=== PATIENT | female | born 1960 | race Caucasian/White ===

== ENCOUNTER 2024-01-02 15:12 | Inpatient (IN) | payer BC, SELFPAY ==
[2024-01-02] VITALS (8 sets, daily range): BP systolic 167–186; BP diastolic 67–96; PULSE 74–80; RESP 18–28; TEMP 36.6–37.1; O2SAT 97–100; BMI 34.4
--- NOTE | ~2024-01-02 | XR_ITS ---
CHEST RADIOGRAPH CLINICAL HISTORY: post R thora . COMPARISON: Radiograph of the chest as well as CTA of the chest same day TECHNIQUE: Single portable view of the chest. FINDINGS The cardiomediastinal silhouette remains partially obscured. Decreased right-sided pleural effusion, when compared with earlier study. No pneumothorax is present. IMPRESSION: Decreased right-sided pleural effusion without right-sided pneumothorax. Reviewed, dictated and finalized at location A. F PSYCHOLOGY
--- NOTE | ~2024-01-02 | XR_ITS ---
Portable chest x-ray Comparison: 01/03/2024 Clinical History: Pleural effusion Findings: Small right pleural effusion present. Left lung clear. Cardiomediastinal silhouette is st able. Bones and soft tissues are unremarkable. Impression: Small right pleural effusion. Reviewed, dictated and finalized at [facility]. PILOT ENGINEER Impression: Small right pleural effusion.
--- NOTE | ~2024-01-02 | XR_ITS ---
CHEST RADIOGRAPH, PA AND LATERAL CLINICAL HISTORY: right effusion . COMPARISON: 01/04/2024 TECHNIQUE: PA and lateral views of the chest. FINDINGS The cardiomediastinal silhouette is unremarkable. Lobulated densities identified within the periphery of the right hemithorax, consistent with patient' s CT examination of 01/02/2024. No right-sided pneumothorax is present following right-sided thoracentesis. The left hemithorax remains clear. Visualized osseous structures and soft tissues are unremarkable. IMPRESSION: Pleural-based densities projecting over the periphery of the right lung. Would recommend repeat CT examination (today) after right-sided thoracentesis for more definitive aura luation of the right chest, and to determine optimal site for biopsy, if needed. Reviewed, dictated and finalized at location A. ER PROGRAM DIRECTOR IMPRESSION: Pleural-based densities projecting over the periphery of the right lung. Would recommend repeat CT examination (today) after right-sided thoracentesis f or more definitive evaluation of the right chest, and to determine optimal site for biopsy, if needed.
--- NOTE | ~2024-01-02 | CT_ITS ---
EXAMINATION: CTA chest PE protocol DATE: 01/02/2024 16:13 ROTOR BALANCER INDICATION: Shortness of breath TECHNIQUE: Computed tomographic angiography (CTA) of the chest was performed with 100 mL Omnipaque-35 0 intravenous contrast. The dose-length product was 902.53 mGy-cm. Maximum intensity projection 3D-re constructions of the aorta and other arteries were constructed by the technologist on a separate work station. COMPARISON: Multiple radiographs of the chest, performed on the same day FINDINGS: No filling defects within the main or proximal pulmonary arteries. Examination is somewhat limited secondary to significant motion artifact from rapid respirations. A large right-sided pleural effusion is identified, with adjacent compressive atelectasis. The attenuation value of this fluid ranges from 10 - 16HU. The remainder of the right hemithorax as well as the entirety of the left hemithorax are clear. Soft tissue attenuation focus identified posterior to the right fourth rib at the level of the costoc hondral junction is identified for which an underlying mass is suspected. This abnormality measures 1 7 x 24 mm (anterior to posterior and medial to lateral dimension) and is best identified on axial sarmad ge 121. An additional focus of soft tissue attenuation is identified along the undersurface of the right pleu ra, at the level of the right scapula measuring 17 x 20 mm. Multiple additional abnormal attenuation foci identified within the periphery along the undersurface of the pleura within the right hemithorax are present. No acute fractures are noted. No significant degenerative disease is present. No lytic or blastic lesions are identified within the visualized osseous structures. Within the superior anterior soft tissues is a catheter extending into the right pectoralis muscle. Bulky calcification within the soft tissues of the left breast. IMPRESSION: Large right-sided pleural effusion with probable studding of the undersurface of the right pleura, as detailed above Reviewed, dictated and finalized at location A. R BALANCER IMPRESSION: Large right-sided pleural effusion with probable studding of the undersurface o f the right pleura, as detailed above
--- NOTE | ~2024-01-02 | US_ITS ---
EXAMINATION: US thoracentesis DATE: 01/04/2024 11:56 INDICATION: pleural effusion TECHNIQUE: The procedure and its risks, benefits, and alternatives were discussed with the patient. Potential risks discussed included bleeding, infection, and pneumothorax. The patient understood the risks and agreed to proceed. A timeout was then performed as per protocol. The skin was prepped and draped in sterile fashion. 1% lidocaine was used for local anesthesia. Under ultrasound guidance, a 5 Fr catheter with trocar was advanced into the right pleural effusion, and the trocar needle removed. The catheter was then attached to vacuum suction. The pleural effusion was evacuated in its entirety. The catheter was then removed, and a sterile dressing was applied. There were no immediate complications. FINDINGS: Ultrasound images demonstrate a dramatic decrease in the right-sided pleural effusion and the cathete r within the fluid. IMPRESSION: 1. Successful ultrasound-guided thoracentesis yielding 1550 mL of thin yellow fluid. No immediate complications. Reviewed, dictated and finalized at location A. CAL LEAD
--- NOTE | ~2024-01-02 | US_ITS ---
EXAMINATION: US thoracentesis at the bedside in ED DATE: 01/02/2024 17:30 INDICATION: Large right-sided pleural effusion with shortness of breath TECHNIQUE: The procedure and its risks, benefits, and alternatives were discussed with the patient. Potential risks discussed included bleeding, infection, and pneumothorax. The patient understood the risks and agreed to proceed. A timeout was then performed as per protocol. The skin was prepped and draped in sterile fashion. 1% lidocaine was used for local anesthesia. Under ultrasound guidance, a 5 Fr catheter with trocar was advanced into the right pleural effusion, and the trocar needle removed. Multiple specimens were then obtained. The catheter was then attached to vacuum suction. Evacuation was continued of the pleural fluid until the patient became symptomatic (chest pain and co ughing). The catheter was then removed, and a sterile dressing was applied. There were no immediate complications. Postprocedure chest x-ray was without pneumothorax and demonstrated a significant decrease in the rig ht-sided pleural effusion. FINDINGS: Ultrasound images demonstrate a large pleural effusion and the catheter within the fluid. Additional image demonstrated studding of the undersurface of the right pleura. IMPRESSION: 1. Technically successful ultrasound-guided thoracentesis yielding 1400 mL of joaquín fluid, performed emergently at the bedside in the emergency Department. Reviewed, dictated and finalized at location A. P THERAPIST IMPRESSION: 1. Technically successful ultrasound-guided thoracentesis yielding 1400 mL of a mber fluid, performed emergently at the bedside in the emergency Department.
--- NOTE | ~2024-01-02 | XR_ITS ---
EXAMINATION: XR chest 1V portable DATE: 01/02/2024 15:45 INDICATION: Shortness of breath. TECHNIQUE: A single frontal view of the chest was obtained. COMPARISON: Chest 2 views at 3:18 PM FINDINGS: There is a large right pleural effusion. There are airspace opacities at right lung base. N o pneumothorax. The heart size is normal. IMPRESSION: 1. Large right pleural effusion. 2. Airspace opacities at right lung base, consistent with atelectasis versus pneumonia. Reviewed, dictated and finalized at location A. STOCKER IMPRESSION: 1. Large right pleural effusion. 2. Airspace opacities at right lung base, consistent with atelectasis versus pn eumonia.
--- NOTE | ~2024-01-02 | XR_ITS ---
Portable chest x-ray Comparison: 01/02/2024 Clinical History: Pleural effusion Findings: Suspected small to moderate right pleural effusion with additional elevation right hemidia phragm. Left lung clear. Cardiomediastinal silhouette is stable. Bones and soft tissues are unremark able. Impression: Suspected small to moderate right pleural effusion. Reviewed, dictated and finalized at location . OR ESTABLISHMENT MANAGER Impression: Suspected small to moderate right pleural effusion.
--- NOTE | 2024-01-02 15:50 | ECG_ITS ---
Test Date: 2024-01-02 16:16:52 Measurements Intervals [place] Rate: 78 P: -7 HI: 169 QRS: -10 QRSD: 88 T: 3 QT: 389 QTc: 443 Interpretive Statements SINUS RHYTHM CONSIDER INFERIOR INFARCT, AGE INDETERMINATE ANTEROSEPTAL INFARCT, AGE INDETERMINATE BASELINE ARTIFACT- I, II, III, AVR, AVL, AVF, V3-V6 ABNORMAL ECG No previous ECG available for comparison Electronically Signed On 01-02-2024 18:40:35 MEETING COORDINATOR by Joe Gillespie D.O.
--- NOTE | 2024-01-02 16:30 | PC.NURSE ---
Pt arrived with needle in R. chest. Needle removed by Md Gong. No active bleeding. Pt. stable at this time.
--- NOTE | 2024-01-02 16:30 | PC.NURSE ---
Pt. arrived with needle in R. chest from EMS. Needle removed by MD Gong.
[2024-01-02 16:34] LABS: Basophils Percent Auto 0.3 % (0.2-1.2); Eosinophils Percent Auto 0.1 % (0-4.4); Hematocrit 35.8 % (37.0-47.0); Hemoglobin 12.6 g/dL (12.0-15.0); Immature Granulocyte Absolute 0.04 K/mm3 (0.00-0.031); Immature Granulocyte Percent A 0.4 % (0-0.5); Lymphocytes Absolute Auto 0.62 K/mm3 (0.9-3.2); Lymphocytes Percent Auto 5.9 % (18.3-44.2); Mean Corpuscular HGB Conc 35.2 g/dl (32-36); Mean Corpuscular Hemoglobin 30.1 pg (26-34); Mean Corpuscular Volume 85.6 fl (80-100); Mean Platelet Volume 10.1 fl (7.4-10.4); Monocytes Absolute Auto 0.4 K/mm3 (0.1-0.6); Neutrophils Absolute Auto 9.4 K/mm3 (1.3-6.7); Neutrophils Percent Auto 89.3 % (45.5-73.1); Platelet Count Result 338 k/mm3 (150-375); Red Blood Count 4.18 M/mm3 (4.2-5.4); Red Cell Distribution Width 11.9 % (11.5-14.5); White Blood Count 10.5 K/mm3 (4.5-10.0)
--- NOTE | 2024-01-02 16:45 | PC.NURSE ---
Radiology at bedside draining R. pleural effusion. Staff reports no needs at this time.
[2024-01-02 16:46] LABS: INR 1.1; Prothrombin Time 14.3 Seconds (11.1-14.7)
[2024-01-02 16:47] LABS: Partial Thromboplastin Time 26.2 Seconds (22.3-36.8)
[2024-01-02 16:50] LABS: Alanine Aminotransferase 20 U/L (6-35); Albumin Level 3.8 g/dL (3.5-5.1); Alkaline Phosphatase 165 U/L (38-126); Anion Gap 7 mmol/L (4-12); Aspartate Amino Transferase 28 U/L (14-36); Bilirubin,Total 0.7 mg/dL (0.2-1.3); Blood Urea Nitrogen 8 mg/dL (7-17); Calcium 8.4 mg/dL (8.4-10.2); Carbon Dioxide 22 mmol/L (22-30); Chloride 94 mmol/L (98-107); Estimated CRCL calculation 81 ml/min; Estimated Glomerular Filt Rate > 60; Glucose 196 mg/dL (65-110); Lipase 222 U/L (23-300); Magnesium 1.8 mg/dL (1.6-2.3); Phosphorus 3.1 mg/dL (2.5-4.5); Potassium 3.7 mmol/L (3.4-5.0); Sodium 123 mmol/L (137-145)
[2024-01-02 16:51] LABS: Lactic Acid Reflex 2.3 mmol/L (0.7-2.0)
--- NOTE | 2024-01-02 17:00 | PC.NURSE ---
Procedure complete. Per Dimas, mri special procedures technologist, pt. should remain NPO until 1900. No additional concerns. Consent for procedure filed with ultrasound.
[2024-01-02 17:02] LABS: NT Pro B Type Natriuretic Pept 341 pg/mL (19.9-100); Troponin I < 0.012 ng/mL (0.000-0.034)
[2024-01-02 17:13] LABS: pH Pleural Fluid 7.446 (7.210-7.500)
--- NOTE | 2024-01-02 17:15 | PM.OP ---
Procedure Note - Brief Procedure Note - Brief Date of procedure: 01/02/24 sob Procedure performed: US guided R thoracentesis performed at the bedside in ED Surgeon: Amee Hubbard MD Anesthesia: local Description of procedure: sterile technique US guidance R thoracentesis ~ 1700cc thin joaquín fluid Estimated blood loss (mL): 0.1 Pathology: Yes Complications: No immediate complications Condition: Other (guarded, unchanged.) Disposition: Other (ER room 3)
--- NOTE | 2024-01-02 17:30 | ED.GENADULT ---
HPI - General Adult General Chief complaint: Shortness of Breath/Dyspnea Stated complaint: sob Time Seen by Provider: 01/02/24 15:36 History of Present Illness HPI narrative: this is a 63-year-old female presenting ED with chief complaint of shortness of breath. One week ago the patient felt like she developed a viral illness. She had an upset stomach, and general malaise with increasing shortness of breath. No fevers chills chest pain abdominal pain nausea vomiting or diarrhea. She went to an urgent care earlier today and was found having large right-sided pleural effusion. She was then sent hospital via ambulance. EMS did not hear lung sounds on the right side and performed a needle compression and the right 2nd intercostal space. Patient denies any other complaints this time. Related Data Allergies Allergy/AdvReac Type Severity Reaction Status Date / Time No Known Allergies Allergy Verified 01/02/24 15:28 Exam Narrative: APPEARANCE: patient in respiratory distress Head: atraumatic. EYES: EOMI, NOSE: Atraumatic NECK: Trachea midline RESPIRATORY: tachypneic, no lung sounds on the right, clear on the left CARDIOVASCULAR: RRR, No jordon peripheral edema ABDOMINAL: Non-distended MUSCULOSKELETAl: No obvious deformities NEURO: Alert. Moving 4/4 extremities SKIN:: Warm, dry. Normal color PSYCHIATRIC: Normal affect Course Vital Signs Vital signs: Vital Signs Temperature 97.9 F 01/02/24 15:23 Pulse Rate 80 01/02/24 15:23 Respiratory Rate 28 H 01/02/24 15:23 Blood Pressure 186/96 H 01/02/24 15:23 Pulse Oximetry 97 01/02/24 15:23 Oxygen Delivery Nasal Cannula 01/02/24 15:23 Oxygen Flow Rate 4 01/02/24 15:23 Temperature 97.9 F 01/02/24 15:23 Pulse Rate 80 01/02/24 15:23 Respiratory Rate 28 H 01/02/24 15:23 Blood Pressure 186/96 H 01/02/24 15:23 Pulse Oximetry 97 01/02/24 15:29 Oxygen Delivery Nasal Cannula 01/02/24 15:29 Oxygen Flow Rate 4 01/02/24 15:29 Medical Decision Making MDM Narrative Medical decision making narrative: -Course: 63-year-old female presenting to ED with shortness of breath. Patient found have a large right-sided pleural effusion. Needle can not decompression attempted by EMS. Patient taken to CT scanner evaluate for pleural effusion or pneumothorax. Needle decompression did not enter the thoracic cavity. CT showed a large pleural effusion with pleural masses. Diagnostic and therapeutic thoracentesis performed by Radiology with improvement in condition. thoracentesis studies are still pending. The rest the patient's workup significant for hyponatremia and hypochloremia. Patient given 1 L normal saline. Patient will be admitted the hospital for further workup her pleural effusion and pleural masses. -DDX includes but is not limited to: Neoplasm CHF, PE, viral illness -Co-morbidities complicating care: hypothyroid, hypertension -Independent interpretation of studies: labs imaging reviewed -Discussion of Management/Consultants: Kaykay -Interventions:1 L ns -Shared decision making / Disposition: admitted Vital Signs Vital Signs: Vital Signs Temperature 97.9 F 01/02/24 15:23 Pulse Rate 80 01/02/24 15:23 Respiratory Rate 28 H 01/02/24 15:23 Blood Pressure 186/96 H 01/02/24 15:23 Pulse Oximetry 97 01/02/24 15:23 Oxygen Delivery Nasal Cannula 01/02/24 15:23 Oxygen Flow Rate 4 01/02/24 15:23 Temperature 97.9 F 01/02/24 15:23 Pulse Rate 80 01/02/24 15:23 Respiratory Rate 28 H 01/02/24 15:23 Blood Pressure 186/96 H 01/02/24 15:23 Pulse Oximetry 97 01/02/24 15:29 Oxygen Delivery Nasal Cannula 01/02/24 15:29 Oxygen Flow Rate 4 01/02/24 15:29 Lab Data 01/02/24 16:28 01/02/24 16:28 Labs: Lab Results 01/02/24 01/02/24 01/02/24 Range/Units 16:28 16:28 16:46 WBC 10.5 H (4.5-10.0) K/mm3 RBC 4.18 L (4.2-5.4) M/mm3 Hgb 12.6 (12.0-15.0) g/dL Hct 35.8 L (37.0-47.0) % MCV 85.6 (80-100) fl MCH 30.1 (26-34) pg MCHC 35.2 (32-36) g/dl RDW 11.9 (11.5-14.5) % Plt Count 338 (150-375) k/mm3 MPV 10.1 (7.4-10.4) fl Immature Gran % (Auto) 0.4 (0-0.5) % Neut % (Auto) 89.3 H (45.5-73.1) % Lymph % (Auto) 5.9 L (18.3-44.2) % [place] % (Auto) 4.0 (2.6-8.5) % Eos % (Auto) 0.1 (0-4.4) % Baso % (Auto) 0.3 (0.2-1.2) % Lymph # (Auto) 0.62 L (0.9-3.2) K/mm3 [place] # (Auto) 0.4 (0.1-0.6) K/mm3 Eos # (Auto) 0.0 (0-0.3) K/mm3 Baso # (Auto) 0.0 (0.0-0.1) K/mm3 Abs Immat Gran (auto) 0.04 H (0.00-0.031) K/mm3 Absolute Neuts (auto) 9.4 H (1.3-6.7) K/mm3 Absolute Nucleated RBC 0.000 (0.0-0.012) K/mm3 Nucleated RBC % 0.0 (0.0-0.2) % PT 14.3 (11.1-14.7) Seconds INR 1.1 APTT 26.2 (22.3-36.8) Seconds Sodium 123 L (137-145) mmol/L Potassium 3.7 (3.4-5.0) mmol/L Chloride 94 L (98-107) mmol/L Carbon Dioxide 22 (22-30) mmol/L Anion Gap 7 (4-12) mmol/L BUN 8 (7-17) mg/dL Creatinine 0.70 (0.7-1.0) mg/dL Estim Creat Clear Calc 81 ml/min Estimated GFR > 60 (59 - ) Glucose 196 H (65-110) mg/dL Lactic Acid 2.3 H (0.7-2.0) mmol/L Calcium 8.4 (8.4-10.2) mg/dL Phosphorus 3.1 (2.5-4.5) mg/dL Magnesium 1.8 (1.6-2.3) mg/dL Total Bilirubin 0.7 (0.2-1.3) mg/dL AST 28 (14-36) U/L ALT 20 (6-35) U/L Alkaline Phosphatase 165 H (38-126) U/L Troponin I Pending < 0.012 NT-Pro-B Natriuret Pep 341 H (19.9-100) pg/mL Total Protein 7.0 (6.3-8.2) g/dL Albumin 3.8 (3.5-5.1) g/dL Lipase 222 (23-300) U/L TSH (Reflex) Pending Pleural Fluid Source Pending Pleural Color Pending Pleural Appearance Pending Pleural pH 7.446 (7.210-7.500) Pleural RBC Pending Pleural Nuc Cells Pending Pleural Total Protein Pending Pleural Albumin Pending Pleural LDH Pending Pleural Glucose Pending Pleural Amylase Pending Pleural Cholesterol Pending Pleural Triglycerides Pending Discharge Plan Discharge Clinical Impression: Pleural effusion, Pleural mass, Hyponatremia Patient Disposition: Still a Patient Condition: Serious Follow-up/Referrals: UNKNOWN,DOCTOR [Primary Care Provider] -
[2024-01-02 17:32] LABS: Alveolar/Arterial O2 Gradient 146.4 mmHg; Base Excess ABG -3.3 mEq/l (+/-2.0); Fractional Inspired Oxygen 36 %; HCO3 ABG 18.7 mEq/l (22.0-26.0); Oxygen Content ABG 18.2 %vol (16.0-22.0); Oxygen Saturation ABG 96.7 % (95.0-100.0); Oxyhemoglobin 95.9 % THb (90.0-100.0); PO2 ABG 80.1 mmHg (80.0-100.0); PO2 FiO2 Ratio Arterial Blood 2.22 %; Total Hemoglobin 13.5 g/dL (12.0-18.0); pH ABG 7.475 (7.350-7.450)
[2024-01-02 17:33] LABS: Device NASAL CANNULA; Modified Allen's Test Pass; Site Drawn RIGHT RADIAL
[2024-01-02 17:56] LABS: Appearance Pleural Fluid Hazy (Clear); Color Pleural Fluid Yellow (Colorless); Pleural fluid source Pleural fluid
[2024-01-02 17:57] LABS: Nucleated Cell Pleural Fluid 3881 /uL (0-1000); RBC Pleural Fluid 2000 /uL (0-10000)
[2024-01-02 18:22] LABS: Lymphocytes Pleural Fluid 59 %; Neutrophils Pleural Fluid 15 % (0-25)
[2024-01-02 18:23] LABS: Macrophages Pleural Fluid 17 %; Mesothelial Cells Pleural Flui 3 %; Monocytes Pleural Fluid 6 %
--- NOTE | 2024-01-02 18:49 | ADMGEN ---
This patient, Kimberly Isabel, was admitted to [facility] Surg Room 312-01. Patient/family oriented to hospital policies and general routines including ID bracelet, bed and alarms, visiting hours, pain management, procedures, bathroom and other care routines, personal items, smoking policy, room service/diet, and visiting hours. Information on how to activate the Rapid Response Team has been discussed. Patient/Family are encouraged to report perceived risks to care and to ask questions if they do not understand what they are told or what they should do.
[2024-01-02 19:23] LABS: Albumin Level 4.3 g/dL (3.5-5.1); Amylase 75 U/L (30-110); Bilirubin,Total 0.7 mg/dL (0.2-1.3); Cholesterol 207 mg/dL (0-200); Glucose 118 mg/dL (65-110); Lactate Dehydrogenase 198 U/L (120-246); Triglycerides 143 mg/dL (<150)
[2024-01-02 19:32] LABS: Reflex Lactic Acid Yes or No Add Lactic
[2024-01-02 20:25] LABS: Lactic Acid 0.9 mmol/L (0.7-2.0)
--- NOTE | 2024-01-02 23:16 | PM.IMHP ---
H&P: HPI History of Present Illness Date/Time: 01/02/24 23:16 Chief Complaint: shortness of breath/dyspnea Narrative: This is a 63-year-old female with a significant past medical history of hyperlipidemia, arthritis, Cholangitis, type 2 diabetes mellitus, hypothyroidism secondary to hyperthyroidism status post radioactive iodine treatment, former smoker who presented to the hospital with increased shortness of breath dyspnea that has progressively gotten worse over the past 1-1/2 weeks. Patient states that she started becoming short of breath 9 days ago and thought that she had a viral illness at that time. She did have a nonproductive dry hacky cough as well. she states that she did not seek any treatment for this until today when she presented to the hospital. she denies any recent Sick contacts. She also denies any fever, chills, nausea, vomiting, diarrhea, abdominal pain, chest pain, shortness a breath currently. Workup in the hospital included a chest x-ray which showed a large right pleural effusion, airspace opacities at right lung base consistent with atelectasis versus pneumonia. Chest CTA showed large right-sided pleural effusion with probable studding of the under surface of the right pleura, soft tissue attenuation focus identified posteriorly at the level of the right 4th rib of the Coastal chondral junction for which an underlying mass is suspected, this abnormality measures 17 x 24 mm, an additional focus of soft tissue attenuation was identified along the undersurface of the right pleura at the level of the right scapula measuring 17 x 20 mm, multiple additional abnormal attenuation foci identified within periphery along the undersurface of the pleura within the right hemithorax were present. Patient was taken for and ultrasound-guided thoracentesis from the ED yielding 1400 mL of joaquín fluid which was sent off for labs and cytology including culture. The pleural fluid showed 3881 pleural nucleated cells. Blood and pleural fluid cultures are pending. initial labs showed a white blood cell count 10.5, RBC 4.18, sodium 123, chloride 94, lactic acid 2.3> 0.9, alkaline phosphate 165, troponin was negative, proBNP 341, cholesterol 207, TSH 1.910. EKG was obtained and showed sinus rhythm with a rate of 78, QTC 443. She is being admitted in this setting for further workup Review of Systems Review of Systems: All systems reviewed & are unremarkable except as noted in HPI and below Constitutional: Constitutional: Reports as per HPI and Reports no additional constitutional complaints Eyes: Eyes: Reports as per HPI and Reports no additional eye complaints ENT: Reports system reviewed and no additional complaints, except as documented and Reports as per HPI Cardiovascular: Cardiovascular: Reports as per HPI and Reports no additional cardiovascular complaints Respiratory: Respiratory: Reports as per HPI and Reports no additional respiratory complaints Gastrointestinal: Gastrointestinal: Reports as per HPI and Reports no additional gastrointestinal complaints Genitourinary: Genitourinary: Reports no additional female genitourinary complaints and Reports as per HPI Musculoskeletal: Musculoskeletal: Reports no additional musculoskeletal complaints and Reports as per HPI Integumentary/Breasts: Skin/Breast: Reports system reviewed and no additional complaints, except as docu and Reports as per HPI Neurologic: Reports system reviewed and no additional complaints, except as documented and Reports as per HPI Psychiatric: Psychiatric: Reports no additional psychiatric complaints and Reports as per HPI [facility] Past Medical History Medical History (Updated 01/02/24 @ 23:33 by Kaykay Cardozo APRN) Arthritis Cholangitis Former smoker H/O radioactive iodine thyroid ablation Hyperlipidemia Hyperthyroidism Hypothyroidism (acquired) Surgical History Surgical History (Updated 01/02/24 @ 23:33 by Kaykay Cardozo APRN) H/O breast biopsy History of History of liver biopsy Family History Family History (Updated 01/02/24 @ 19:00 by Rose Seaman RN) Mother Colon cancer Social History Social History (Updated 01/02/24 @ 23:35 by Kaykay Cardozo APRN) Smoking status: Former smoker Tobacco type: cigarettes Alcohol intake: never Substance use: never Substance use type: does not use Do You Feel Safe in your Home?: Yes Lack of Transportation: No Lack of Food: Never True Current Housing: I Have Housing Concerned About Future Housing: No Difficulty Paying Gas/Electric Bills: No Difficulty Paying for Meds: No Currently Unemployed: No Education: Trade/Vocational Certificate Difficulty w/ Childcare or Family Care: No Spiritual care concerns: No Meds Home Medications and Allergies Home Medications Medication Instructions Recorded Confirmed Type cetirizine 10 mg tablet (Zyrtec) 10 mg PO DAILY 01/02/24 01/02/24 History levothyroxine 175 mcg tablet 175 mcg PO DAILY 01/02/24 01/02/24 History (Synthroid) rosuvastatin 5 mg tablet 5 mg PO DAILY 01/02/24 01/02/24 History tirzepatide 10 mg/0.5 mL 10 mg subcut 01/02/24 History subcutaneous pen injector (Radha) ursodiol 500 mg tablet 1,500 mg PO DAILY 01/02/24 01/02/24 History Allergies Allergy/AdvReac Type Severity Reaction Status Date / Time No Known Allergies Allergy Verified 01/02/24 15:28 Vital Signs Vital Signs - 24 hr 01/02/24 15:23 01/02/24 15:29 01/02/24 17:34 Temperature 97.9 F Pulse Rate 80 74 Respiratory Rate 28 H 20 Blood Pressure 186/96 H Pulse Oximetry 97 97 100 Oxygen Delivery Nasal Cannula Nasal Cannula Oxygen Flow Rate 4 4 01/02/24 18:19 01/02/24 18:20 01/02/24 19:00 Temperature 98 F Pulse Rate 75 80 Respiratory Rate 21 H 18 Blood Pressure 167/76 H 184/68 H Pulse Oximetry 98 100 98 Oxygen Delivery Nasal Cannula Oxygen Flow Rate 3 01/02/24 20:00 01/02/24 20:00 01/02/24 21:54 Temperature 98.8 F 98.8 F Pulse Rate 75 75 Respiratory Rate 18 18 Blood Pressure 175/67 H 175/67 H Pulse Oximetry 98 98 98 Oxygen Delivery Nasal Cannula Oxygen Flow Rate 2 Exam Narrative: General: In no acute distress, well nourished Head: atraumatic, no encephalopathy Eyes: PERRLA, sclera clear ENT: moist mucous membranes, nasal passages clear Neck: supple, no JVD, no adenopathy, trachea midline Cardiac: Normal S1 and S2. No murmur, gallops or friction rubs, peripheral pulses intact. Respiratory: crackles noted on the right lung versus the left, no adventitious lung sounds, currently on 2 L nasal cannula, no acute respiratory distress seen, no use of accessory muscles. Gastrointestinal: soft, non-distended, non-tender, normoactive bowel sounds. : voiding without difficulty. Extremities: moves all extremities well, no edema, good ROM, strength 5/5 Skin: clean, dry, intact. No wounds or lesions. Neuro: Alert and oriented x4, cranial nerves intact, no neuro deficits. Psych: normal mood, normal affect, interactive H&P: Results Labs Labs: Short CBC 01/02/24 Range/Units 16:28 WBC 10.5 H (4.5-10.0) K/mm3 Hgb 12.6 (12.0-15.0) g/dL Hct 35.8 L (37.0-47.0) % Plt Count 338 (150-375) k/mm3 BMP 01/02/24 01/02/24 16:28 19:03 Sodium 123 L Potassium 3.7 Chloride 94 L Carbon Dioxide 22 BUN 8 Creatinine 0.70 Glucose 196 H 118 H Calcium 8.4 Cardiac Enzymes 01/02/24 Range/Units 16:28 Troponin I < 0.012 (0.000-0.034) ng/mL Liver Function 01/02/24 01/02/24 Range/Units 16:28 19:03 Total Bilirubin 0.7 0.7 (0.2-1.3) mg/dL AST 28 (14-36) U/L ALT 20 (6-35) U/L Alkaline Phosphatase 165 H (38-126) U/L Albumin 3.8 4.3 (3.5-5.1) g/dL Imaging Chest x-ray: Radiologist's impression: EXAMINATION: XR chest 1V portable DATE: 01/02/2024 15:45 INDICATION: Shortness of breath. TECHNIQUE: A single frontal view of the chest was obtained. COMPARISON: Chest 2 views at 3:18 PM FINDINGS: There is a large right pleural effusion. There are airspace opacities at right lung base. No pneumothorax. The heart size is normal. IMPRESSION: 1. Large right pleural effusion. 2. Airspace opacities at right lung base, consistent with atelectasis versus pneumonia. Reviewed, dictated and finalized at location A. NG MACHINE SET UP OPERATOR Chest CTA: Radiologist's impression: EXAMINATION: CTA chest PE protocol DATE: 01/02/2024 16:13 HONING MACHINE SET UP OPERATOR INDICATION: Shortness of breath TECHNIQUE: Computed tomographic angiography (CTA) of the chest was performed with 100 mL Omnipaque-350 intravenous contrast. The dose-length product was 902.53 mGy-cm. Maximum intensity projection 3D-reconstructions of the aorta and other arteries were constructed by the technologist on a separate workstation. COMPARISON: Multiple radiographs of the chest, performed on the same day FINDINGS: No filling defects within the main or proximal pulmonary arteries. Examination is somewhat limited secondary to significant motion artifact from rapid respirations. A large right-sided pleural effusion is identified, with adjacent compressive atelectasis. The attenuation value of this fluid ranges from 10 - 16HU. The remainder of the right hemithorax as well as the entirety of the left hemithorax are clear. Soft tissue attenuation focus identified posterior to the right fourth rib at the level of the costochondral junction is identified for which an underlying mass is suspected. This abnormality measures 17 x 24 mm (anterior to posterior and medial to lateral dimension) and is best identified on axial image 121. An additional focus of soft tissue attenuation is identified along the undersurface of the right pleura, at the level of the right scapula measuring 17 x 20 mm. Multiple additional abnormal attenuation foci identified within the periphery along the undersurface of the pleura within the right hemithorax are present. No acute fractures are noted. No significant degenerative disease is present. No lytic or blastic lesions are identified within the visualized osseous structures. Within the superior anterior soft tissues is a catheter extending into the right pectoralis muscle. Bulky calcification within the soft tissues of the left breast. IMPRESSION: Large right-sided pleural effusion with probable studding of the undersurface of the right pleura, as detailed above Reviewed, dictated and finalized at location A. NG MACHINE SET UP OPERATOR thoracentesis ultrasound: Radiologist's impression: EXAMINATION: US thoracentesis at the bedside in ED DATE: 01/02/2024 17:30 INDICATION: Large right-sided pleural effusion with shortness of breath TECHNIQUE: The procedure and its risks, benefits, and alternatives were discussed with the patient. Potential risks discussed included bleeding, infection, and pneumothorax. The patient understood the risks and agreed to proceed. A timeout was then performed as per protocol. The skin was prepped and draped in sterile fashion. 1% lidocaine was used for local anesthesia. Under ultrasound guidance, a 5 Fr catheter with trocar was advanced into the right pleural effusion, and the trocar needle removed. Multiple specimens were then obtained. The catheter was then attached to vacuum suction. Evacuation was continued of the pleural fluid until the patient became symptomatic (chest pain and coughing). The catheter was then removed, and a sterile dressing was applied. There were no immediate complications. Postprocedure chest x-ray was without pneumothorax and demonstrated a significant decrease in the right-sided pleural effusion. FINDINGS: Ultrasound images demonstrate a large pleural effusion and the catheter within the fluid. Additional image demonstrated studding of the undersurface of the right pleura. IMPRESSION: 1. Technically successful ultrasound-guided thoracentesis yielding 1400 mL of joaquín fluid, performed emergently at the bedside in the emergency Department. Reviewed, dictated and finalized at location A. NG MACHINE SET UP OPERATOR Assessment and Plan Assessment and plan (1) Pleural effusion: Code(s): J90 - Pleural effusion, not elsewhere classified Status: Acute Assessment and Plan: chest x-ray showing large right pleural effusion with airspace opacities at the right lung base consistent with atelectasis versus pneumonia chest CTA showed large right-sided pleural effusion with probable studding of the undersurface of the right pleura showing soft tissue attenuation focus identified posteriorly to the right 4th rib at the level of the Coastal chondral junction identified for which an underlying mass is suspected, this abnormality measures 17 x 24 mm and is best identified on axial image 121, an additional focus of soft tissue attenuation is identified along the undersurface of the right pleura at the level of the right scapula measuring 17 x 20 mm, multiple additional abnormal attenuation foci identified within the periphery along the undersurface of the pleura within the right hemithorax are present. Ultrasound-guided thoracentesis yielded 1400 mL of joaquín colored fluid pleural fluid was sent for labs and cytology nucleated cells were elevated white blood cell count on hematology labs was 10.5 patient does have history of smoking half a pack of cigarettes however quit 40 years ago, she has no history of cancers, family history of colon cancer currently on 2 L nasal cannula, continue to wean O2 for sat greater than 92% (2) Pleural mass: Code(s): J94.8 - Other specified pleural conditions Status: Acute Assessment and Plan: chest CTA shown soft tissue attenuation focus identified posteriorly to the right 4th rib at the level of the Coastal chondral junction identified for which an underlying mass is suspected, this abnormality measures 17 x 24 mm and is best identified on axial image 121, an additional focus of soft tissue attenuation is identified along the undersurface of the right pleura at the level of the right scapula measuring 17 x 20 mm, multiple additional abnormal attenuation foci identified within the periphery along the undersurface of the pleura within the right hemithorax are present. pulmonology consulted may need biopsy (3) Hyponatremia: Code(s): E87.1 - Hypo-osmolality and hyponatremia Status: Acute Assessment and Plan: sodium level 123, chloride 94 unsure if this is chronic will check urine sodium, urine osmolarity, serum osmolarity (4) Hypothyroidism (acquired): Code(s): E03.9 - Hypothyroidism, unspecified Status: Acute Assessment and Plan: secondary to hyperthyroidism status post radioactive iodine treatment continue Synthroid (5) Hyperlipidemia: Code(s): E78.5 - Hyperlipidemia, unspecified Status: Acute Assessment and Plan: continue rosuvastatin Quality VTE Prophylaxis VTE prophylaxis: pharmacologic ordered Hospitalist MIPS Advance Care Plan I have confirmed that the patient's Advanced Care Plan is present, code status is documented, or surrogate decision maker is listed in patient medical record.: Yes Medication Reconciliation I have utilized all available resources to obtain, update and review the patients current medications (includes all prescriptions, OTC, herbals, cannabis, and nutritional supplements).: Yes
[2024-01-03] MEDS: ACETAMINOPHEN 325 MG TABLET 650 MG PO ×2 (02:15→19:48)
[2024-01-03 02:18] LABS: Add Urine Microscopic? NO; Appearance Urine Clear (Clear); Bilirubin Urine Negative (Negative); Blood Urine Negative (Negative); Color Urine Yellow (Yellow); Glucose Urine UA Negative (Negative); Ketones Urine 1+ mg/dL (Negative); Leukocyte Esterase Ur Negative LEU/UL (Negative); Nitrate Urine Negative (Negative); Protein Urine Negative (Negative)
[2024-01-03 02:53] LABS: Influenza A QL RT-PCR Negative (Negative); Influenza B QL RT-PCR Negative (Negative); RSV RNA, RT-PCR Negative (Negative); SARS-CoV-2 RNA PCR Negative (Negative)
[2024-01-03 03:08] LABS: Sodium Urine Random 11 meq/L
[2024-01-03 04:00] VITALS: BP 145/61; PULSE 69; RESP 18; TEMP 36.4; O2SAT 96
[2024-01-03] MEDS: LEVOTHYROXINE SODIUM 75 MCG TABLET PO (06:39)
[2024-01-03] MEDS: LEVOTHYROXINE SODIUM 100 MCG TABLET PO (06:39)
[2024-01-03 07:16] LABS: Basophils Percent Auto 0.4 % (0.2-1.2); Eosinophils Absolute Auto 0.1 K/mm3 (0-0.3); Hematocrit 36.8 % (37.0-47.0); Hemoglobin 12.9 g/dL (12.0-15.0); Immature Granulocyte Absolute 0.03 K/mm3 (0.00-0.031); Immature Granulocyte Percent A 0.3 % (0-0.5); Lymphocytes Absolute Auto 1.56 K/mm3 (0.9-3.2); Mean Corpuscular HGB Conc 35.1 g/dl (32-36); Mean Corpuscular Hemoglobin 30.3 pg (26-34); Mean Corpuscular Volume 86.4 fl (80-100); Mean Platelet Volume 10.6 fl (7.4-10.4); Monocytes Absolute Auto 0.6 K/mm3 (0.1-0.6); Neutrophils Absolute Auto 6.9 K/mm3 (1.3-6.7); Neutrophils Percent Auto 75.3 % (45.5-73.1); Platelet Count Result 371 k/mm3 (150-375); Red Blood Count 4.26 M/mm3 (4.2-5.4); White Blood Count 9.2 K/mm3 (4.5-10.0)
[2024-01-03 07:31] LABS: Alanine Aminotransferase 18 U/L (6-35); Albumin Level 3.7 g/dL (3.5-5.1); Alkaline Phosphatase 175 U/L (38-126); Anion Gap 5 mmol/L (4-12); Aspartate Amino Transferase 28 U/L (14-36); Blood Urea Nitrogen 7 mg/dL (7-17); Calcium 8.9 mg/dL (8.4-10.2); Carbon Dioxide 23 mmol/L (22-30); Chloride 100 mmol/L (98-107); Estimated CRCL calculation 89 ml/min; Estimated Glomerular Filt Rate > 60; Glucose 121 mg/dL (65-110); Potassium 3.9 mmol/L (3.4-5.0); Sodium 128 mmol/L (137-145)
[2024-01-03 08:00] VITALS: BP 152/69; PULSE 65; RESP 18; TEMP 36.4; O2SAT 98
[2024-01-03] MEDS: ENOXAPARIN 40 MG/0.4 ML SYRINGE SUB-Q (08:40)
[2024-01-03] MEDS: ROSUVASTATIN 5 MG TABLET PO (08:40)
--- NOTE | 2024-01-03 10:50 | P.CONPL_ITS ---
Assessment and Plan Assessment and plan (1) Pleural mass: Code(s): J94.8 - Other specified pleural conditions Status: Acute Assessment and Plan: Patient presents with large pleural effusion occupying approximately 80% of the right hemithorax and had a thoracentesis of 1400 mL. Post thoracentesis chest x-ray demonstrated pleural effusion occupies approximately 33% of the right hemithorax. Her symptoms improved and the current study showed no evidence of infection with a lymphocytic predominant cell count. 01/03/24: I spoke with the pathologist this morning and the preliminary reading on the cytospin identified malignant cells. The cell block is in process and official results will possibly be dictated on 01/04/2024 but this may not happen until next week. I have told the patient that the scans and the preliminary read on the pleural fluid is consistent with cancer but that a formal diagnosis will not be confirmed until the official pathology report has been dictated. I have told her I think is in her best interest to talk to an oncologist today and she is in agreement with placing oncology consult. There is no evidence of infection and I feel there is no need for any antibiotics at this point. Repeat chest x-ray on 01/03/2024 shows a right-sided pleural effusion occupying approximately 35-40% of the right hemithorax. Currently the patient is on room air. Plan: From a pulmonary perspective patient could be discharged as long as she has appropriate oncology follow-up. If she remains in the hospital overnight would perform a chest x-ray in the morning on 01/04/2024. If there is rapid reaccumulation of the pleural effusion would consider repeat thoracentesis on 01/04/2024. I told the patient that if this is a malignant pleural effusion that she should follow-up with an oncologist and that there is no specific pulmonary foll ow-up that is required at this time. discussed with Margret Dodson, will follow with you. History of Present Illness History of Present Illness Consult date: 01/03/24 Chief complaint: Pleural effusion, pleural masses Narrative: 01/03/2024: This is a new pulmonary consult for right pleural effusion. 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 Patient had no respiratory issues in her life until approximately 1 month ago. She has chronic right upper quadrant pain from her primary biliary sclerosis that is intermittent but had not had any pain in her right upper quadrant for 2 months. She developed right upper quadrant pain that was somewhat different th an her typical PBS pain. This was a dull squeezing intermittent pain. Twelve days ago she developed a dry cough. Ten days ago she developed shortness of breath when laying flat, walking, dull right posterior shoulder pain, and warm feeling on her back. Four days ago she developed wheezing. She denied mika fevers, chills, rigors, sweats. She denied phlegm production or hemoptysis. Patient smoked tobacco from age [age] at 1/4 pack per day for a total of 1.25 pack years. Patient was exposed to secondhand smoke from her mother but none since. 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 Patient's has worked in the [employer] for 45 years and has worked on asbestos breaks while doing this job. The patient washed his work clothes. She has no rashes or new lymphadenopathy. The patient has no history of cancer. She gets yearly mammograms her last was 01/31/2023 which was negative. Her mother of colon cancer at age 37 and she has had multiple colonoscopies approximately 5/6 the last of which was 3 years ago and she has had polyps in the past but no concerning lesions. Patient has had a weight loss over the last 7 8 months and she has also been on Mon jar 0 intermittently for 7-8 months. 01/02/2024. The patient presented to urgent care with shortness of breath and a chest x-ray reportedly demonstrated a large right pleural effusion and she was transported to the emergency department at [facility]. Apparently EMS heard no breath sounds on the right and attempted needle decompression. The patient tells me this did nothing for her symptoms. Her blood pressure was 186/96, respiratory rate 28, saturations on 4 L nasal cannula is 97%. She had absent breath sounds on the right lung. White blood cell count 10.5, eosinophils 0.1%, creatinine 0.7, BNP 341, TSH 1.91 and a chest x-ray showed large right pleural effusion with mediastinal deviation to the left. CT angiogram of the chest showed no PE, large right-sided pleural effusion with soft tissue mass posterior to the 4th rib and right pleural soft tissue mass consistent with pleural studding. Patient had a right thoracentesis with removal of 1400 mL of thin joaquín fluid. PH was 7.47, g stain with few white blood cells and no organisms. White blood cell count 3881 with a differential of neutrophils 15, lymphocytes 59%, monocytes 6, macrophages 17, mesothelial cells 3. The patient tells me by the end of the procedure she was breathing much better 60-65% back to normal. 01/03/2024: Currently the patient tells me she is 60 65% back to her normal. She still has some shortness of breath walking and Laying flat. When I enter the room she was on 2 L nasal cannula saturations 97%. I placed her on room air and after 35 minutes her saturations were 97%. DATA: 01/02/24: EXAMINATION: CTA chest PE protocol INDICATION: Shortness of breath COMPARISON: Multiple radiographs of the chest, performed on the same day FINDINGS: No filling defects within the main or proximal pulmonary arteries. Examination is somewhat limited secondary to significant motion artifact from rapid respirations. A large right-sided pleural effusion is identified, with adjacent compressive atelectasis. The attenuation value of this fluid ranges from 10 - 16HU. The remainder of the right hemithorax as well as the entirety of the left hemithorax are clear. Soft tissue attenuation focus identified posterior to the right fourth rib at the level of the costochondral junction is identified for which an underlying mass is suspected. This abnormality measures 17 x 24 mm (anterior to posterior and medial to lateral dimension) and is best identified on axial image 121. An additional focus of soft tissue attenuation is identified along the undersurface of the right pleura, at the level of the right scapula measuring 17 x 20 mm. Multiple additional abnormal attenuation foci identified within the periphery along the undersurface of the pleura within the right hemithorax are present. No acute fractures are noted. No significant degenerative disease is present. No lytic or blastic lesions are identified within the visualized osseous structures. Within the superior anterior soft tissues is a catheter extending into the right pectoralis muscle. Bulky calcification within the soft tissues of the left breast. IMPRESSION: Large right-sided pleural effusion with probable studding of the undersurface of the right pleura, as detailed above Review of Systems Constitutional: Constitutional: Reports no additional constitutional complaints Eyes: Eyes: Reports no additional eye complaints ENT: Reports system reviewed and no additional complaints, except as documented Cardiovascular: Cardiovascular: Reports no additional cardiovascular complaints Respiratory: Respiratory: Reports no additional respiratory complaints Gastrointestinal: Gastrointestinal: Reports no additional gastrointestinal complaints Musculoskeletal: Musculoskeletal: Reports no additional musculoskeletal complaints Neurologic: Reports system reviewed and no additional complaints, except as documented Psychiatric: Psychiatric: Reports no additional psychiatric complaints Endocrine: Endocrine: Reports no additional endocrine complaints Hematologic/Lymphatic: Hematologic/Lymphatic: Reports no additional hematologic/lymphatic complaints Allergic/Immunologic: Allergic/Immunologic: Reports no additional allergic/immunologic complaints [facility] Past Medical History Medical History (Updated 01/02/24 @ 23:33 by Kaykay Cardozo APRN) Arthritis Cholangitis Former smoker H/O radioactive iodine thyroid ablation Hyperlipidemia Hyperthyroidism Hypothyroidism (acquired) Surgical History Surgical History (Updated 01/02/24 @ 23:33 by Kaykay Cardozo APRN) H/O breast biopsy History of History of liver biopsy Family History Family History (Updated 01/02/24 @ 19:00 by Rose Seaman, RN) Mother Colon cancer Social History Social History (Updated 01/02/24 @ 23:35 by Kaykay Cardozo APRN) Smoking status: Former smoker Tobacco type: cigarettes Alcohol intake: never Substance use: never Substance use type: does not use Do You Feel Safe in your Home?: Yes Lack of Transportation: No Lack of Food: Never True Current Housing: I Have Housing Concerned About Future Housing: No Difficulty Paying Gas/Electric Bills: No Difficulty Paying for Meds: No Currently Unemployed: No Education: Trade/Vocational Certificate Difficulty w/ Childcare or Family Care: No Spiritual care concerns: No Meds Home Medications and Allergies Home Medications Medication Instructions Recorded Confirmed Type cetirizine 10 mg tablet (Zyrtec) 10 mg PO DAILY 01/02/24 01/02/24 History levothyroxine 175 mcg tablet 175 mcg PO DAILY 01/02/24 01/02/24 History (Synthroid) rosuvastatin 5 mg tablet 5 mg PO DAILY 01/02/24 01/02/24 History tirzepatide 10 mg/0.5 mL 10 mg subcut 01/02/24 History subcutaneous pen injector (Mounjaro) ursodiol 500 mg tablet 1,500 mg PO DAILY 01/02/24 01/02/24 History Allergies Allergy/AdvReac Type Severity Reaction Status Date / Time No Known Allergies Allergy Verified 01/02/24 15:28 Vital Signs Vital Signs - 24 hr 01/02/24 15:23 01/02/24 15:29 01/02/24 17:34 Temperature 36.6 C Pulse Rate 80 74 Respiratory Rate 28 H 20 Blood Pressure 186/96 H Pulse Oximetry 97 97 100 Oxygen Delivery Nasal Cannula Nasal Cannula Oxygen Flow Rate 4 4 01/02/24 18:19 01/02/24 18:20 01/02/24 19:00 Temperature 36.6 C Pulse Rate 75 80 Respiratory Rate 21 H 18 Blood Pressure 167/76 H 184/68 H Pulse Oximetry 98 100 98 Oxygen Delivery Nasal Cannula Oxygen Flow Rate 3 01/02/24 20:00 01/02/24 20:00 01/02/24 21:54 Temperature 37.1 C 37.1 C Pulse Rate 75 75 Respiratory Rate 18 18 Blood Pressure 175/67 H 175/67 H Pulse Oximetry 98 98 98 Oxygen Delivery Nasal Cannula Oxygen Flow Rate 2 01/03/24 04:00 01/03/24 08:00 01/03/24 08:00 Temperature 36.4 C 36.4 C L Pulse Rate 69 65 Respiratory Rate 18 18 Blood Pressure 145/61 H 152/69 H Pulse Oximetry 96 98 98 Oxygen Delivery Nasal Cannula Oxygen Flow Rate 2 Exam Const: General: cooperative, healthy appearing and comfortable Orientation/consciousness: oriented to person, oriented to place and oriented to time HENMT: Head: normal to inspection Ears: hearing grossly normal bilaterally Eyes: General: appearance normal, both eyes and all related structures Neck: Neck: normal visual inspection Chest: Chest palpation & inspection: normal inspection of the chest Resp: Effort & Inspection: normal respiratory effort and able to speak in complete sentences Auscultation: no crackles, no rales, no rhonchi, no wheezes and diminished lung sounds Other: [place] up on the right. Cardio: Jugular venous distension: no JVD GI: Inspection: normal to inspection GI Palp: No abdominal tenderness Skin: General skin exam: normal color Neuro: General: oriented to person, oriented to place and oriented to time Extrem: General: normal to inspection and no edema Psych: Appearance: grossly normal Results Laboratory Findings 01/03/24 06:54 01/03/24 06:54 ABG, PT/INR, D-dimer: ABG ABG pH 7.475 (7.350-7.450) H 01/02/24 17:24 ABG pCO2 26.0 mmHg (35.0-45.0) L 01/02/24 17:24 ABG pO2 80.1 mmHg (80.0-100.0) 01/02/24 17:24 ABG O2 Saturation 96.7 % (95.0-100.0) 01/02/24 17:24 PT/INR, D-dimer PT 14.3 Seconds (11.1-14.7) 01/02/24 16:28 INR 1.1 01/02/24 16:28 Abnormal lab findings: Abnormal Labs 01/02/24 01/02/24 01/02/24 16:28 16:46 17:24 WBC 10.5 H RBC 4.18 L Hct 35.8 L MPV Neut % (Auto) 89.3 H Lymph % (Auto) 5.9 L Lymph # (Auto) 0.62 L Abs Immat Gran (auto) 0.04 H Absolute Neuts (auto) 9.4 H ABG pH 7.475 H ABG pCO2 26.0 L ABG HCO3 18.7 L Sodium 123 L Chloride 94 L Creatinine Glucose 196 H Lactic Acid 2.3 H Alkaline Phosphatase 165 H NT-Pro-B Natriuret Pep 341 H Cholesterol Urine Ketones Pleural Nuc Cells 3881 H 01/02/24 01/03/24 01/03/24 19:03 02:00 06:54 WBC RBC Hct 36.8 L MPV 10.6 H Neut % (Auto) 75.3 H Lymph % (Auto) 17.0 L Lymph # (Auto) Abs Immat Gran (auto) Absolute Neuts (auto) 6.9 H ABG pH ABG pCO2 ABG HCO3 Sodium 128 L Chloride Creatinine 0.60 L Glucose 118 H 121 H Lactic Acid Alkaline Phosphatase 175 H NT-Pro-B Natriuret Pep Cholesterol 207 H Urine Ketones 1+ H Pleural Nuc Cells Diagnostic Findings Additional studies: ITS Impressions Chest X-Ray 01/02/24 15:45 IMPRESSION: 1. Large right pleural effusion. 2. Airspace opacities at right lung base, consistent with atelectasis versus pneumonia. Chest CTA 01/02/24 16:13 IMPRESSION: Large right-sided pleural effusion with probable studding of the undersurface of the right pleura, as detailed above Chest X-Ray 01/02/24 17:22 IMPRESSION: Decreased right-sided pleural effusion without right-sided pneumothorax. Thoracentesis Ultrasound 01/02/24 17:32 IMPRESSION: 1. Technically successful ultrasound-guided thoracentesis yielding 1400 mL of joaquín fluid, performed emergently at the bedside in the emergency Department. Chest X-Ray 01/03/24 08:48 Impression: Suspected small to moderate right pleural effusion.
--- NOTE | 2024-01-03 11:31 | P.PNIM_ITS ---
Progress Note: A&P Assessment and Plan (1) Pleural effusion: Code(s): J90 - Pleural effusion, not elsewhere classified Status: Acute Assessment and Plan: * chest x-ray showing large right pleural effusion with airspace opacities at the right lung base consistent with atelectasis versus pneumonia * chest CTA showed large right-sided pleural effusion with probable studding of the undersurface of the right pleura showing soft tissue attenuation focus identified posteriorly to the right 4th rib at the level of the Coast[place] chondral junction identified for which an underlying mass is suspected, this abnormality measures 17 x 24 mm and is best identified on axial image 121, an additional focus of soft tissue attenuation is identified along the undersurface of the right pleura at the level of the right scapula measuring 17 x 20 mm, multiple additional abnormal attenuation foci identified within the periphery along the undersurface of the pleura within the right hemithorax are present. 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 Oncology consulted. * Chest X-ray at 6 am o n 01/04/24. (2) Pleural mass: Code(s): J94.8 - Other specified pleural conditions Status: Acute Assessment and Plan: * chest CTA shown soft tissue attenuation focus identified posteriorly to the right 4th rib at the level of the [place] chondral junction identified for which an underlying mass is suspected, this abnormality measures 17 x 24 mm and is best identified on axial image 121, an additional focus of soft tissue attenuation is identified along the undersurface of the right pleura at the level of the right scapula measuring 17 x 20 mm, multiple additional abnormal attenuation foci identified within the periphery along the undersurface of the pleura within the right hemithorax are present. * pulmonology consulted * may need biopsy (3) Hyponatremia: Code(s): E87.1 - Hypo-osmolality and hyponatremia Status: Acute Assessment and Plan: * sodium level 128, chloride 100 * unsure if this is chronic * urine sodium 11, * urine osmolarity and serum osmolarity pending. (4) Hypothyroidism (acquired): Code(s): E03.9 - Hypothyroidism, unspecified Status: Acute Assessment and Plan: * secondary to hyperthyroidism status post radioactive iodine treatment * continue Synthroid (5) Hyperlipidemia: Code(s): E78.5 - Hyperlipidemia, unspecified Status: Acute Assessment and Plan: * continue rosuvastatin Subjective Date/time seen: 01/03/24 11:31 Interval history: Patient reports dyspnea at times on exertion. Patient denies chest pain, headache, dizziness, nausea, or vomiting. Family at bedside. Patient sitting up in chair. Review of Systems Review of Systems: All systems reviewed & are unremarkable except as noted in HPI and below Exam Const: General: comfortable and no acute distress Resp: Effort & Inspection: normal respiratory effort Other: Patient is able to speak in complete sentences. slightly coarse lower right lung. Cardio: Rate: regular rate Rhythm: regular rhythm GI: GI Palp: Yes Soft to palpation Auscultation: normal bowel sounds Skin: General skin exam: no rashes or lesions noted Neuro: Speech: normal speech Extrem: General: normal to inspection Psych: Mental Status: mental status grossly normal Affect: normal affect Objective Data Vital Signs Vital Signs: Vital Signs - 24 hr 01/02/24 15:23 01/02/24 15:29 01/02/24 17:34 Temperature 97.9 F Pulse Rate 80 74 Respiratory Rate 28 H 20 Blood Pressure 186/96 H Pulse Oximetry 97 97 100 Oxygen Delivery Nasal Cannula Nasal Cannula Oxygen Flow Rate 4 4 01/02/24 18:19 01/02/24 18:20 01/02/24 19:00 Temperature 98 F Pulse Rate 75 80 Respiratory Rate 21 H 18 Blood Pressure 167/76 H 184/68 H Pulse Oximetry 98 100 98 Oxygen Delivery Nasal Cannula Oxygen Flow Rate 3 01/02/24 20:00 01/02/24 20:00 01/02/24 21:54 Temperature 98.8 F 98.8 F Pulse Rate 75 75 Respiratory Rate 18 18 Blood Pressure 175/67 H 175/67 H Pulse Oximetry 98 98 98 Oxygen Delivery Nasal Cannula Oxygen Flow Rate 2 01/03/24 04:00 01/03/24 08:00 01/03/24 08:00 Temperature 97.6 F 97.5 F L Pulse Rate 69 65 Respiratory Rate 18 18 Blood Pressure 145/61 H 152/69 H Pulse Oximetry 96 98 98 Oxygen Delivery Nasal Cannula Oxygen Flow Rate 2 Intake/Output Intake/Output: Intake & Output 12/31/23 01/01/24 01/02/24 01/03/24 23:59 23:59 23:59 23:59 Intake Total 550 Output Total 1400 800 Balance -1400 -250 Meds/Results Medications: Active Medications Generic Name Dose Route Start Last Admin Trade Name Freq PRN Reason Stop Dose Admin Acetaminophen 650 mg 01/02/24 23:45 01/03/24 02:15 Acetaminophen 325 Mg Tablet PO 650 mg Q4H PRN Administration Mild Pain (1-3) or Fever Enoxaparin Sodium 40 mg 01/03/24 09:00 01/03/24 08:40 Enoxaparin 40 Mg/0.4 Ml Syringe SUB-Q 40 mg DAILY NICK Administration Levothyroxine Sodium 75 mcg 01/03/24 06:30 01/03/24 06:39 Levothyroxine Sodium 75 Mcg Tablet PO 75 mcg DAILY@0630 NICK Administration Levothyroxine Sodium 100 mcg 01/03/24 06:30 01/03/24 06:39 Levothyroxine Sodium 100 Mcg Tablet PO 100 mcg DAILY@0630 NICK Administration Ondansetron HCl 4 mg 01/02/24 23:45 Ondansetron Inj 4 Mg/2 Ml Vial IV PUSH Q6H PRN Nausea And Vomiting Rosuvastatin Calcium 5 mg 01/03/24 09:00 01/03/24 08:40 Rosuvastatin 5 Mg Tablet PO 5 mg DAILY NICK Administration Radiology Results: ITS Impressions Chest CTA 01/02/24 16:13 IMPRESSION: Large right-sided pleural effusion with probable studding of the undersurface of the right pleura, as detailed above Thoracentesis Ultrasound 01/02/24 17:32 IMPRESSION: 1. Technically successful ultrasound-guided thoracentesis yielding 1400 mL of joaquín fluid, performed emergently at the bedside in the emergency Department. Chest X-Ray 01/03/24 08:48 Impression: Suspected small to moderate right pleural effusion. Labs Labs: Laboratory Results - last 24 hr 01/02/24 01/02/24 01/02/24 16:28 16:46 17:24 WBC 10.5 H RBC 4.18 L Hgb 12.6 Hct 35.8 L MCV 85.6 MCH 30.1 MCHC 35.2 RDW 11.9 Plt Count 338 MPV 10.1 Immature Gran % (Auto) 0.4 Neut % (Auto) 89.3 H Lymph % (Auto) 5.9 L [place] % (Auto) 4.0 Eos % (Auto) 0.1 Baso % (Auto) 0.3 Lymph # (Auto) 0.62 L [place] # (Auto) 0.4 Eos # (Auto) 0.0 Baso # (Auto) 0.0 Abs Immat Gran (auto) 0.04 H Absolute Neuts (auto) 9.4 H Absolute Nucleated RBC 0.000 Nucleated RBC % 0.0 PT 14.3 INR 1.1 APTT 26.2 Puncture Site Right radial ABG pH 7.475 H ABG pCO2 26.0 L ABG pO2 80.1 ABG PO2/FiO2 Ratio 2.22 ABG HCO3 18.7 L ABG O2 Saturation 96.7 ABG O2 Content 18.2 ABG Base Excess -3.3 A-a Gradient 146.4 Oxyhemoglobin 95.9 Total Hemoglobin 13.5 O2 Delivery Device Nasal cannula O2 Liters/Min 4.0 FiO2 36 Sodium 123 L Potassium 3.7 Chloride 94 L Carbon Dioxide 22 Anion Gap 7 BUN 8 Creatinine 0.70 Estim Creat Clear Calc 81 Estimated GFR > 60 Glucose 196 H Lactic Acid 2.3 H Calcium 8.4 Phosphorus 3.1 Magnesium 1.8 Total Bilirubin 0.7 AST 28 ALT 20 Alkaline Phosphatase 165 H Lactate Dehydrogenase Troponin I < 0.012 Cancelled NT-Pro-B Natriuret Pep 341 H Total Protein 7.0 Albumin 3.8 Triglycerides Cholesterol Amylase Lipase 222 TSH (Reflex) 1.910 Urine Color Urine Appearance Urine pH Ur Specific [place] Urine Protein Urine Glucose (UA) Urine Ketones Ur Blood (Man) Urine Nitrate Urine Bilirubin Urine Urobilinogen Leukocyte Esterase Rfl Ur Random Sodium Pleural Fluid Source Pleural fluid Pleural Color Yellow Pleural Appearance Hazy Pleural pH 7.446 Pleural RBC 2000 Pleural Nuc Cells 3881 H Pleural Neutrophils 15 Pleural Lymphocytes 59 Pleural Monocytes 6 Pleural Macrophages 17 Pleural Mesothelial 3 Influenza A (RT-PCR) Influenza B (RT-PCR) RSV (RT-PCR) SARS-CoV-2 RNA (RT-PCR) 01/02/24 01/02/24 01/03/24 19:03 20:07 02:00 WBC RBC Hgb Hct MCV MCH MCHC RDW Plt Count MPV Immature Gran % (Auto) Neut % (Auto) Lymph % (Auto) [place] % (Auto) Eos % (Auto) Baso % (Auto) Lymph # (Auto) [place] # (Auto) Eos # (Auto) Baso # (Auto) Abs Immat Gran (auto) Absolute Neuts (auto) Absolute Nucleated RBC Nucleated RBC % PT INR APTT Puncture Site ABG pH ABG pCO2 ABG pO2 ABG PO2/FiO2 Ratio ABG HCO3 ABG O2 Saturation ABG O2 Content ABG Base Excess A-a Gradient Oxyhemoglobin Total Hemoglobin O2 Delivery Device O2 Liters/Min FiO2 Sodium Potassium Chloride Carbon Dioxide Anion Gap BUN Creatinine Estim Creat Clear Calc Estimated GFR Glucose 118 H Lactic Acid 0.9 Calcium Phosphorus Magnesium Total Bilirubin 0.7 AST ALT Alkaline Phosphatase Lactate Dehydrogenase 198 Troponin I NT-Pro-B Natriuret Pep Total Protein 8.0 Albumin 4.3 Triglycerides 143 Cholesterol 207 H Amylase 75 Lipase TSH (Reflex) Urine Color Yellow Urine Appearance Clear Urine pH 6.0 Ur Specific [place] 1.030 Urine Protein Negative Urine Glucose (UA) Negative Urine Ketones 1+ H Ur Blood (Man) Negative Urine Nitrate Negative Urine Bilirubin Negative Urine Urobilinogen 1.0 Leukocyte Esterase Rfl Negative Ur Random Sodium 11 Pleural Fluid Source Pleural Color Pleural Appearance Pleural pH Pleural RBC Pleural Nuc Cells Pleural Neutrophils Pleural Lymphocytes Pleural Monocytes Pleural Macrophages Pleural Mesothelial Influenza A (RT-PCR) Influenza B (RT-PCR) RSV (RT-PCR) SARS-CoV-2 RNA (RT-PCR) 01/03/24 01/03/24 02:08 06:54 WBC 9.2 RBC 4.26 Hgb 12.9 Hct 36.8 L MCV 86.4 MCH 30.3 MCHC 35.1 RDW 12.0 Plt Count 371 MPV 10.6 H Immature Gran % (Auto) 0.3 Neut % (Auto) 75.3 H Lymph % (Auto) 17.0 L [place] % (Auto) 6.0 Eos % (Auto) 1.0 Baso % (Auto) 0.4 Lymph # (Auto) 1.56 [place] # (Auto) 0.6 Eos # (Auto) 0.1 Baso # (Auto) 0.0 Abs Immat Gran (auto) 0.03 Absolute Neuts (auto) 6.9 H Absolute Nucleated RBC 0.000 Nucleated RBC % 0.0 PT INR APTT Puncture Site ABG pH ABG pCO2 ABG pO2 ABG PO2/FiO2 Ratio ABG HCO3 ABG O2 Saturation ABG O2 Content ABG Base Excess A-a Gradient Oxyhemoglobin Total Hemoglobin O2 Delivery Device O2 Liters/Min FiO2 Sodium 128 L Potassium 3.9 Chloride 100 Carbon Dioxide 23 Anion Gap 5 BUN 7 Creatinine 0.60 L Estim Creat Clear Calc 89 Estimated GFR > 60 Glucose 121 H Lactic Acid Calcium 8.9 Phosphorus Magnesium Total Bilirubin 1.0 AST 28 ALT 18 Alkaline Phosphatase 175 H Lactate Dehydrogenase Troponin I NT-Pro-B Natriuret Pep Total Protein 7.0 Albumin 3.7 Triglycerides Cholesterol Amylase Lipase TSH (Reflex) Urine Color Urine Appearance Urine pH Ur Specific [place] Urine Protein Urine Glucose (UA) Urine Ketones Ur Blood (Man) Urine Nitrate Urine Bilirubin Urine Urobilinogen Leukocyte Esterase Rfl Ur Random Sodium Pleural Fluid Source Pleural Color Pleural Appearance Pleural pH Pleural RBC Pleural Nuc Cells Pleural Neutrophils Pleural Lymphocytes Pleural Monocytes Pleural Macrophages Pleural Mesothelial Influenza A (RT-PCR) Negative Influenza B (RT-PCR) Negative RSV (RT-PCR) Negative SARS-CoV-2 RNA (RT-PCR) Negative Quality VTE Prophylaxis VTE prophylaxis: pharmacologic ordered
[2024-01-03] MEDS: LORATADINE 10 MG TABLET PO (12:08)
[2024-01-03 14:00] VITALS: BP 143/66; PULSE 71; RESP 18; TEMP 37.2; O2SAT 99
[2024-01-03] MEDS: guaiFENesin 12 HR 600 MG TABCR PO (19:48)
[2024-01-03 22:00] VITALS: BP 151/91; PULSE 74; RESP 13; TEMP 36.5; O2SAT 99
[2024-01-04 05:15] VITALS: BP 137/69; PULSE 75; RESP 14; TEMP 36.4; O2SAT 94
[2024-01-04] MEDS: LEVOTHYROXINE SODIUM 100 MCG TABLET PO (06:43)
[2024-01-04] MEDS: LEVOTHYROXINE SODIUM 75 MCG TABLET PO (06:43)
[2024-01-04 08:06] LABS: Basophils Absolute Auto 0.1 K/mm3 (0.0-0.1); Basophils Percent Auto 0.6 % (0.2-1.2); Eosinophils Absolute Auto 0.2 K/mm3 (0-0.3); Eosinophils Percent Auto 1.8 % (0-4.4); Hematocrit 40.1 % (37.0-47.0); Hemoglobin 13.9 g/dL (12.0-15.0); Immature Granulocyte Absolute 0.03 K/mm3 (0.00-0.031); Immature Granulocyte Percent A 0.4 % (0-0.5); Lymphocytes Absolute Auto 1.33 K/mm3 (0.9-3.2); Lymphocytes Percent Auto 16.1 % (18.3-44.2); Mean Corpuscular HGB Conc 34.7 g/dl (32-36); Mean Corpuscular Hemoglobin 30.2 pg (26-34); Mean Platelet Volume 10.6 fl (7.4-10.4); Monocytes Absolute Auto 0.6 K/mm3 (0.1-0.6); Monocytes Percent Auto 6.9 % (2.6-8.5); Neutrophils Absolute Auto 6.2 K/mm3 (1.3-6.7); Neutrophils Percent Auto 74.2 % (45.5-73.1); Platelet Count Result 448 k/mm3 (150-375); Red Blood Count 4.61 M/mm3 (4.2-5.4); Red Cell Distribution Width 12.4 % (11.5-14.5); White Blood Count 8.3 K/mm3 (4.5-10.0)
[2024-01-04 08:16] VITALS: BP 151/68; PULSE 92; RESP 18; TEMP 36.6; O2SAT 96
[2024-01-04 08:16] LABS: Alanine Aminotransferase 19 U/L (6-35); Alkaline Phosphatase 168 U/L (38-126); Anion Gap 6 mmol/L (4-12); Aspartate Amino Transferase 27 U/L (14-36); Bilirubin,Total 0.7 mg/dL (0.2-1.3); Blood Urea Nitrogen 9 mg/dL (7-17); Calcium 9.2 mg/dL (8.4-10.2); Carbon Dioxide 27 mmol/L (22-30); Chloride 100 mmol/L (98-107); Estimated CRCL calculation 89 ml/min; Estimated Glomerular Filt Rate > 60; Glucose 139 mg/dL (65-110); Potassium 3.9 mmol/L (3.4-5.0); Sodium 133 mmol/L (137-145)
[2024-01-04 08:55] VITALS: O2SAT 95
--- NOTE | 2024-01-04 08:57 | P.PNPL_ITS ---
Progress Note: A&P Assessment and Plan (1) Pleural mass: Code(s): J94.8 - Other specified pleural conditions Status: Acute Assessment and Plan: Patient presents with large pleural effusion occupying approximately 80% of the right hemithorax and had a thoracentesis of 1400 mL. Post thoracentesis chest x-ray demonstrated pleural effusion occupies approximately 33% of the right hemithorax. Her symptoms improved and the current study showed no evidence of infection with a lymphocytic predominant cell count. 01/03/24: I spoke with the pathologist this morning and the preliminary reading on the cytospin identified malignant cells. The cell block is in process and official results will possibly be dictated on 01/04/2024 but this may not happen until next week. I have told the patient that the scans and the preliminary read on the pleural fluid is consistent with cancer but that a formal diagnosis will not be confirmed until the official pathology report has been dictated. I have told her I think is in her best interest to talk to an oncologist today and she is in agreement with placing oncology consult. There is no evidence of infection and I feel there is no need for any antibiotics at this point. Repeat chest x-ray on 01/03/2024 shows a right-sided pleural effusion occupying approximately 35-40% of the right hemithorax. Currently the patient is on room air. Plan: From a pulmonary perspective patient could be discharged as long as she has appropriate oncology follow-up. If she remains in the hospital overnight would perform a chest x-ray in the morning on 01/04/2024. If there is rapid reaccumulation of the pleural effusion would consider repeat thoracentesis on 01/04/2024. I told the patient that if this is a malignant pleural effusion that she should follow-up with an oncologist and that there is no specific pulmonary follow-up that is required at this time. 01/04/24: patient slept well overnight. She continues with a dry cough. No hemoptysis. She has some rest shortness of breath and Breathes heavy when she walks to the bathroom. This is different for her and limits her. Currently she is on room air with saturations 95%. White blood cell count 8.3, creatinine 0.6. Chest x-ray with right pleural effusion occupying approximately 30% of the right hemithorax. Oncology consult has been placed. Plan: await final pathology report from thoracentesis on 01/02/2024 (malignant cells on cytospin). Patient with continued symptoms and will repeat right ultrasound-guided thoracentesis. I will repeat cytology in case there is not enough cellular material from the 1st thoracentesis on 01/02/2024. If there are no complications she could be discharged from a pulmonary perspective on no pulmonary medicines. If the cytology is positive she does not need pulmonary specific follow-up. If the cytology is negative for malignancy she should follow-up in the Pulmonary Clinic in 4 weeks. I gave her our business card. Discussed with Margret Dodson, will sign off, call with questions. Subjective Date/time seen: 01/04/24 08:57 Interval history: 01/03/2024: This is a new pulmonary consult for right pleural effusion. 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 Patient had no respiratory issues in her life until approximately 1 month ago. She has chronic right upper quadrant pain from her primary biliary sclerosis that is intermittent but had not had any pain in her right upper quadrant for 2 months. She developed right upper quadrant pain that was somewhat different than her typical PBS pain. This was a dull squeezing intermittent pain. Twelve days ago she developed a dry cough. Ten days ago she developed shortness of breath when laying flat, walking, dull right posterior shoulder pain, and warm feeling on her back. Four days ago she developed wheezing. She denied mika fevers, chills, rigors, sweats. She denied phlegm production or hemoptysis. Patient smoked tobacco from age [age] at 1/4 pack per day for a total of 1.25 pack years. Patient was exposed to secondhand smoke from her mother but none since. 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 Patient's has worked in the [employer] for 45 years and has worked on asbestos breaks while doing this job. The patient washed his work clothes. She has no rashes or new lymphadenopathy. The patient has no history of cancer. She gets yearly mammograms her last was 01/31/2023 which was negative. Her mother of colon cancer at age 37 and margaux briceño has had multiple colonoscopies approximately /6 the last of which was 3 years ago and she has had polyps in the past but no concerning lesions. Patient has had a weight loss over the last 7 8 months and she has also been on Mon jar 0 intermittently for 7-8 months. 01/02/2024. The patient presented to urgent care with shortness of breath and a chest x-ray reportedly demonstrated a large right pleural effusion and she was transported to the emergency department at [facility]. Apparently EMS heard no breath sounds on the right and attempted needle decompression. The patient tells me this did nothing for her symptoms. Her blood pressure was 186/96, respiratory rate 28, saturations on 4 L nasal cannula is 97%. She had absent breath sounds on the right lung. White blood cell count 10.5, eosinophils 0.1%, creatinine 0.7, BNP 341, TSH 1.91 and a chest x-ray showed large right pleural effusion with mediastinal deviation to the left. CT angiogram of the chest showed no PE, large right-sided pleural effusion with soft tissue mass posterior to the 4th rib and right pleural soft tissue mass consistent with pleural studding. Patient had a right thoracentesis with removal of 1400 mL of thin joaquín fluid. PH was 7.47, g stain with few white blood cells and no organisms. White blood cell count 3881 with a differential of neutrophils 15, lymphocytes 59%, monocytes 6, macrophages 17, mesothelial cells 3. The patient tells me by the end of the procedure she was breathing much better 60-65% back to normal. 01/03/2024: Currently the patient tells me she is 60 65% back to her normal. She still has some shortness of breath walking and Laying flat. When I enter the room she was on 2 L nasal cannula saturations 97%. I placed her on room air and after 35 minutes her saturations were 97%. 01/04/24: patient slept well overnight. She continues with a dry cough. No hemoptysis. She has some rest shortness of breath and Breathes heavy when she walks to the bathroom. This is different for her and limits her. Currently she is on room air with saturations 95%. White blood cell count 8.3, creatinine 0.6. Chest x-ray with right pleural effusion occupying approximately 30% of the right hemithorax. DATA: 01/02/24: EXAMINATION: CTA chest PE protocol INDICATION: Shortness of breath COMPARISON: Multiple radiographs of the chest, performed on the same day FINDINGS: No filling defects within the main or proximal pulmonary arteries. Examination is somewhat limited secondary to significant motion artifact from rapid respirations. A large right-sided pleural effusion is identified, with adjacent compressive atelectasis. The attenuation value of this fluid ranges from 10 - 16HU. The remainder of the right hemithorax as well as the entirety of the left hemithorax are clear. Soft tissue attenuation focus identified posterior to the right fourth rib at the level of the costochondral junction is identified for which an underlying mass is suspected. This abnormality measures 17 x 24 mm (anterior to posterior and medial to lateral dimension) and is best identified on axial image 121. An additional focus of soft tissue attenuation is identified along the undersurface of the right pleura, at the level of the right scapula measuring 17 x 20 mm. Multiple additional abnormal attenuation foci identified within the periphery along the undersurface of the pleura within the right hemithorax are present. No acute fractures are noted. No significant degenerative disease is present. No lytic or blastic lesions are identified within the visualized osseous structures. Within the superior anterior soft tissues is a catheter extending into the right pectoralis muscle. Bulky calcification within the soft tissues of the left breast. IMPRESSION: Large right-sided pleural effusion with probable studding of the undersurface of the right pleura, as detailed above Review of Systems Constitutional: Constitutional: Reports no additional constitutional complaints Eyes: Eyes: Reports no additional eye complaints ENT: Reports system reviewed and no additional complaints, except as documented Cardiovascular: Cardiovascular: Reports no additional cardiovascular complaints Respiratory: Respiratory: Reports no additional respiratory complaints Gastrointestinal: Gastrointestinal: Reports no additional gastrointestinal complaints Musculoskeletal: Musculoskeletal: Reports no additional musculoskeletal complaints Neurologic: Reports system reviewed and no additional complaints, except as documented Psychiatric: Psychiatric: Reports no additional psychiatric complaints Endocrine: Endocrine: Reports no additional endocrine complaints Hematologic/Lymphatic: Hematologic/Lymphatic: Reports no additional hematologic/lymphatic complaints Allergic/Immunologic: Allergic/Immunologic: Reports no additional allergic/immunologic complaints Exam Const: General: cooperative, healthy appearing and comfortable Orientation/consciousness: oriented to person, oriented to place and oriented to time HENMT: Head: normal to inspection Ears: hearing grossly normal bilaterally Eyes: General: appearance normal, both eyes and all related structures Neck: Neck: normal visual inspection Chest: Chest palpation & inspection: normal inspection of the chest Resp: Effort & Inspection: normal respiratory effort and able to speak in complete sentences Auscultation: no crackles, no rales, no rhonchi, no wheezes and diminished lung sounds Other: [place] up on the right. Cardio: Jugular venous distension: no JVD GI: Inspection: normal to inspection Skin: General skin exam: normal color Neuro: General: oriented to person, oriented to place and oriented to time Extrem: General: normal to inspection and no edema Psych: Appearance: grossly normal Objective Data Vital Signs Vital Signs: Vital Signs - 24 hr 01/03/24 14:00 01/03/24 20:00 01/03/24 22:00 Temperature 37.2 C 36.5 C Pulse Rate 71 74 Respiratory Rate 18 13 Blood Pressure 143/66 H 151/91 H Pulse Oximetry 99 99 Oxygen Delivery Room Air 01/04/24 05:15 01/04/24 08:16 01/04/24 08:55 Temperature 36.4 C 36.6 C Pulse Rate 75 92 Respiratory Rate 14 18 Blood Pressure 137/69 151/68 H Pulse Oximetry 94 96 95 Oxygen Delivery Room Air Intake/Output Intake/Output: Intake & Output 01/01/24 01/02/24 01/03/24 01/04/24 23:59 23:59 23:59 23:59 Intake Total 1250 375 Output Total 1400 800 Balance -1400 450 375 Meds/Results Medications: Active Medications Generic Name Dose Route Start Last Admin Trade Name Nuraq PRN Reason Stop Dose Admin Acetaminophen 650 mg 01/02/24 23:45 01/03/24 19:48 Acetaminophen 325 Mg Tablet PO 650 mg Q4H PRN Administration Mild Pain (1-3) or Fever Enoxaparin Sodium 40 mg 01/03/24 09:00 01/03/24 08:40 Enoxaparin 40 Mg/0.4 Ml Syringe SUB-Q 40 mg DAILY NICK Administration Fluticasone Propionate 1 spray 01/03/24 21:00 01/03/24 22:07 Fluticasone Propionate 0.05% Na Spr 16 Gm Btl (*Bkc) NASAL Not Given Q12HR NICK Guaifenesin 600 mg 01/03/24 21:00 01/03/24 19:48 Guaifenesin 12 Hr 600 Mg Tabcr PO 01/10/24 20:59 600 mg Q12HR NICK Administration Levothyroxine Sodium 75 mcg 01/03/24 06:30 01/04/24 06:43 Levothyroxine Sodium 75 Mcg Tablet PO 75 mcg DAILY@0630 NICK Administration Levothyroxine Sodium 100 mcg 01/03/24 06:30 01/04/24 06:43 Levothyroxine Sodium 100 Mcg Tablet PO 100 mcg DAILY@0630 NICK Administration Loratadine 10 mg 01/03/24 11:35 01/03/24 12:08 Loratadine 10 Mg Tablet PO 10 mg QAM NICK Administration Ondansetron HCl 4 mg 01/02/24 23:45 Ondansetron Inj 4 Mg/2 Ml Vial IV PUSH Q6H PRN Nausea And Vomiting Rosuvastatin Calcium 5 mg 01/03/24 09:00 01/03/24 08:40 Rosuvastatin 5 Mg Tablet PO 5 mg DAILY NICK Administration Radiology Results: ITS Impressions Chest CTA 01/02/24 16:13 IMPRESSION: Large right-sided pleural effusion with probable studding of the undersurface of the right pleura, as detailed above Thoracentesis Ultrasound 01/02/24 17:32 IMPRESSION: 1. Technically successful ultrasound-guided thoracentesis yielding 1400 mL of joaquín fluid, performed emergently at the bedside in the emergency Department. Chest X-Ray 01/04/24 06:33 Impression: Small right pleural effusion. Labs Labs: Laboratory Results - last 24 hr 01/02/24 01/04/24 16:46 07:29 WBC 8.3 RBC 4.61 Hgb 13.9 Hct 40.1 MCV 87.0 MCH 30.2 MCHC 34.7 RDW 12.4 Plt Count 448 H MPV 10.6 H Immature Gran % (Auto) 0.4 Neut % (Auto) 74.2 H Lymph % (Auto) 16.1 L [place] % (Auto) 6.9 Eos % (Auto) 1.8 Baso % (Auto) 0.6 Lymph # (Auto) 1.33 [place] # (Auto) 0.6 Eos # (Auto) 0.2 Baso # (Auto) 0.1 Abs Immat Gran (auto) 0.03 Absolute Neuts (auto) 6.2 Absolute Nucleated RBC 0.000 Nucleated RBC % 0.0 Sodium 133 L Potassium 3.9 Chloride 100 Carbon Dioxide 27 Anion Gap 6 BUN 9 Creatinine 0.60 L Estim Creat Clear Calc 89 Estimated GFR > 60 Glucose 139 H Calcium 9.2 Total Bilirubin 0.7 AST 27 ALT 19 Alkaline Phosphatase 168 H Troponin I Cancelled Total Protein 8.0 Albumin 4.0
[2024-01-04 09:04] LABS: Mean Platelet Volume 10.1 fl (7.4-10.4); Platelet Count Result 436 k/mm3 (150-375)
[2024-01-04 09:15] LABS: Partial Thromboplastin Time 24.6 Seconds (22.3-36.8); Prothrombin Time 13.4 Seconds (11.1-14.7)
--- NOTE | 2024-01-04 10:11 | P.PNIM_ITS ---
Progress Note: A&P Assessment and Plan (1) Pleural effusion: Code(s): J90 - Pleural effusion, not elsewhere classified Status: Acute Assessment and Plan: * chest x-ray showing large right pleural effusion with airspace opacities at the right lung base consistent with atelectasis versus pneumonia * chest CTA showed large right-sided pleural effusion with probable studding of the undersurface of the right pleura showing soft tissue attenuation focus identified posteriorly to the right 4th rib at the level of the Coast[place] chondral junction identified for which an underlying mass is suspected, this abnormality measures 17 x 24 mm and is best identified on axial image 121, an additional focus of soft tissue attenuation is identified along the undersurface of the right pleura at the level of the right scapula measuring 17 x 20 mm, multiple additional abnormal attenuation foci identified within the periphery along the undersurface of the pleura within the right hemithorax are present. * Ultrasound-guided thoracentesis yielded 1400 mL of joaquín colored fluid on 01/01, Ultrasound guided Thoracentesis today 1550 thin yellow liquid. * pleural fluid was sent for labs and cytology * nucleated cells were elevated * white blood cell count on hematology labs was 10.5, now 8.3 * patient does have history of smoking half a pack of cigarettes however quit 40 years ago, she has no history of cancers, family history of colon cancer * Sa02 99% RA * Pulmonology following and reported preliminary pleural fluid showed malignant cells in pleural fluid. Oncology consulted. (2) Pleural mass: Code(s): J94.8 - Other specified pleural conditions Status: Acute Assessment and Plan: * chest CTA shown soft tissue attenuation focus identified posteriorly to the right 4th rib at the level of the Coastal chondral junction identified for which an underlying mass is suspected, this abnormality measures 17 x 24 mm and is best identified on axial image 121, an additional focus of soft tissue attenuation is identified along the undersurface of the right pleura at the level of the right scapula measuring 17 x 20 mm, multiple additional abnormal attenuation foci identified within the periphery along the undersurface of the pleura within the right hemithorax are present. * pulmonology consulted * may need biopsy (3) Hyponatremia: Code(s): E87.1 - Hypo-osmolality and hyponatremia Status: Acute Assessment and Plan: * sodium level 133, chloride 100 * unsure if this is chronic * urine sodium 11, * urine osmolarity 342 and serum osmolarity 273. (4) Hypothyroidism (acquired): Code(s): E03.9 - Hypothyroidism, unspecified Status: Acute Assessment and Plan: * secondary to hyperthyroidism status post radioactive iodine treatment * continue Synthroid (5) Hyperlipidemia: Code(s): E78.5 - Hyperlipidemia, unspecified Status: Acute Assessment and Plan: * continue rosuvastatin Subjective Date/time seen: 01/04/24 10:11 Interval history: Patient reports shortness of breath with activity and some positions. Patient to have a thoracentesis today. Patient denies chest pain, palpitations, headache, dizziness, nausea, or vomiting. Awaiting oncology consult. Family at bedside. Review of Systems Review of Systems: All systems reviewed & are unremarkable except as noted in HPI and below Exam Const: General: comfortable and no acute distress Resp: Effort & Inspection: normal respiratory effort Other: fci up on right. Cardio: Rate: regular rate Rhythm: regular rhythm GI: GI Palp: Yes Soft to palpation Auscultation: normal bowel sounds Neuro: Speech: normal speech Extrem: General: normal to inspection Psych: Mental Status: mental status grossly normal Affect: normal affect Objective Data Vital Signs Vital Signs: Vital Signs - 24 hr 01/03/24 14:00 01/03/24 20:00 01/03/24 22:00 Temperature 98.9 F 97.7 F Pulse Rate 71 74 Respiratory Rate 18 13 Blood Pressure 143/66 H 151/91 H Pulse Oximetry 99 99 Oxygen Delivery Room Air 01/04/24 05:15 01/04/24 08:16 01/04/24 08:55 Temperature 97.6 F 97.9 F Pulse Rate 75 92 Respiratory Rate 14 18 Blood Pressure 137/69 151/68 H Pulse Oximetry 94 96 95 Oxygen Delivery Room Air Intake/Output Intake/Output: Intake & Output 01/01/24 01/02/24 01/03/24 01/04/24 23:59 23:59 23:59 23:59 Intake Total 1250 375 Output Total 1400 800 Balance -1400 450 375 Meds/Results Medications: Active Medications Generic Name Dose Route Start Last Admin Trade Name Freq PRN Reason Stop Dose Admin Acetaminophen 650 mg 01/02/24 23:45 01/03/24 19:48 Acetaminophen 325 Mg Tablet PO 650 mg Q4H PRN Administration Mild Pain (1-3) or Fever Enoxaparin Sodium 40 mg 01/03/24 09:00 01/03/24 08:40 Enoxaparin 40 Mg/0.4 Ml Syringe SUB-Q 40 mg DAILY NICK Administration Fluticasone Propionate 1 spray 01/03/24 21:00 01/03/24 22:07 Fluticasone Propionate 0.05% Na Spr 16 Gm Btl (*Bkc) NASAL Not Given Q12HR NICK Guaifenesin 600 mg 01/03/24 21:00 01/03/24 19:48 Guaifenesin 12 Hr 600 Mg Tabcr PO 01/10/24 20:59 600 mg Q12HR NICK Administration Levothyroxine Sodium 75 mcg 01/03/24 06:30 01/04/24 06:43 Levothyroxine Sodium 75 Mcg Tablet PO 75 mcg DAILY@0630 NICK Administration Levothyroxine Sodium 100 mcg 01/03/24 06:30 01/04/24 06:43 Levothyroxine Sodium 100 Mcg Tablet PO 100 mcg DAILY@0630 NICK Administration Loratadine 10 mg 01/03/24 11:35 01/03/24 12:08 Loratadine 10 Mg Tablet PO 10 mg QAM NICK Administration Ondansetron HCl 4 mg 01/02/24 23:45 Ondansetron Inj 4 Mg/2 Ml Vial IV PUSH Q6H PRN Nausea And Vomiting Rosuvastatin Calcium 5 mg 01/03/24 09:00 01/03/24 08:40 Rosuvastatin 5 Mg Tablet PO 5 mg DAILY NICK Administration Radiology Results: ITS Impressions Chest CTA 01/02/24 16:13 IMPRESSION: Large right-sided pleural effusion with probable studding of the undersurface of the right pleura, as detailed above Thoracentesis Ultrasound 01/02/24 17:32 IMPRESSION: 1. Technically successful ultrasound-guided thoracentesis yielding 1400 mL of joaquín fluid, performed emergently at the bedside in the emergency Department. Chest X-Ray 01/04/24 06:33 Impression: Small right pleural effusion. Labs Labs: Laboratory Results - last 24 hr 01/02/24 01/04/24 01/04/24 16:46 07:29 08:58 WBC 8.3 RBC 4.61 Hgb 13.9 Hct 40.1 MCV 87.0 MCH 30.2 MCHC 34.7 RDW 12.4 Plt Count 448 H 436 H MPV 10.6 H 10.1 Immature Gran % (Auto) 0.4 Neut % (Auto) 74.2 H Lymph % (Auto) 16.1 L [place] % (Auto) 6.9 Eos % (Auto) 1.8 Baso % (Auto) 0.6 Lymph # (Auto) 1.33 [place] # (Auto) 0.6 Eos # (Auto) 0.2 Baso # (Auto) 0.1 Abs Immat Gran (auto) 0.03 Absolute Neuts (auto) 6.2 Absolute Nucleated RBC 0.000 Nucleated RBC % 0.0 PT 13.4 INR 1.0 APTT 24.6 Sodium 133 L Potassium 3.9 Chloride 100 Carbon Dioxide 27 Anion Gap 6 BUN 9 Creatinine 0.60 L Estim Creat Clear Calc 89 Estimated GFR > 60 Glucose 139 H Calcium 9.2 Total Bilirubin 0.7 AST 27 ALT 19 Alkaline Phosphatase 168 H Troponin I Cancelled Total Protein 8.0 Albumin 4.0 Quality VTE Prophylaxis VTE prophylaxis: pharmacologic ordered
--- NOTE | 2024-01-04 10:53 | PC.NURSE ---
Pt transported to radiology from [facility] for thoracentesis.
--- NOTE | 2024-01-04 10:54 | PC.NURSE ---
Pt stated that she took her thyroid med at 0630 and only a sip of water since then. 0900 meds held until after her thoracentesis as pt needs to be NPO. Pt agreed to hold meds and take them upon returning from procedure.
--- NOTE | 2024-01-04 11:48 | PM.OP ---
Procedure Note - Brief Procedure Note - Brief Date of procedure: 01/04/24 Pleural effusion Procedure performed: US guided R thoracentesis Surgeon: Amee Hubbard MD Anesthesia: local Description of procedure: Sterile technique US guidance 5Fr catheter 1550cc thin yellow fluid no immediate complication Estimated blood loss (mL): 0.1 Pathology: Yes Complications: No immediate complications Condition: Stable Disposition: Floor
--- NOTE | 2024-01-04 11:56 | PC.NURSE ---
Pt returned from radiology at 1152.
[2024-01-04 12:54] LABS: Osmolality, Urine 342 mOsm/kg (50-1200)
[2024-01-04] MEDS: ACETAMINOPHEN 325 MG TABLET 650 MG PO ×2 (13:11→22:08)
[2024-01-04] MEDS: guaiFENesin 12 HR 600 MG TABCR PO ×2 (13:12→22:08)
[2024-01-04] MEDS: ROSUVASTATIN 5 MG TABLET PO (13:12)
[2024-01-04] MEDS: LORATADINE 10 MG TABLET PO (13:12)
[2024-01-04 14:00] VITALS: BP 149/72; PULSE 82; RESP 18; TEMP 36.8; O2SAT 99
[2024-01-04 17:32] VITALS: BP 159/71; PULSE 72; RESP 18; TEMP 35.9; O2SAT 100
--- NOTE | 2024-01-04 17:51 | PDONCCN ---
HPI - Date of Consult Date/Time: 01/04/24 17:51 Requesting Physician: Eder Rios MD Primary Care Provider: UNKNOWN,DOCTOR - Consult Narrative Reason for consult: Malignant pleural effusion Narrative: Kimberly Isabel is a 63 year old female with history of type 2 diabetes, hypothyroidism, cholangitis and hyperlipidemia along with history of hyper thyroidism status post radioactive iodine treatment came into the hospital with shortness of breath and dyspnea on exertion with dry cough. She has a remote history of smoking for very short time. She denies any weight loss. There is a family history of colon cancer in the mother. CTA chest was performed that showed large right-sided pleural effusion. There was a soft tissue attenuation posterior to the right 4th rib measuring 17 x 24 mm. No lytic or blastic bone lesion seen. Patient had thoracentesis done with 1400 mL fluid removed initially and then another thoracentesis was performed yesterday with removal of another 1500 cc of fluid. Pleural cytology report is currently pending. Review of Systems - Review of Systems All systems reviewed & are unremarkable except as noted in HPI and bel - Neurologic Reports system reviewed and no additional complaints, except as documented PMFSH Medical History: Medical History (Last Updated 01/02/24 @ 23:33 by Kaykay Cardozo APRN) Arthritis Cholangitis Former smoker H/O radioactive iodine thyroid ablation Hyperlipidemia Hyperthyroidism Hypothyroidism (acquired) Surgical History: Surgical History (Last Updated 01/02/24 @ 23:33 by Kaykay Cardozo APRN) H/O breast biopsy History of History of liver biopsy Family History: Family History (Last Updated 01/02/24 @ 19:00 by Rose Seaman RN) Mother Colon cancer - Social History Social History: Social History (Last Updated 01/02/24 @ 23:35 by Kaykay Cardozo APRN) Alcohol Use: Alcohol intake: never Substance Use: Substance use: never Substance use type: does not use Others: Spiritual care concerns: No Smoking Status: Smoking status: Former smoker Tobacco type: cigarettes Approximate Smoking End Date: 40 years ago Social Determinants of Health: Do You Feel Safe in your Home?: Yes Has the Lack of Transportation Kept You From Medical Appointments or From Getting Medications?: No Within the Past 12 Months, Were You Worried Whether Your Food Would Run Out Before You Got Money to Buy More?: Never True What is Your Housing Situation Today?: I Have Housing Are You Worried That in the Next 2 Months, You May Not Have Your Own Housing to Live In?: No Do You Have Trouble Paying Your Heating Or Electricity Bill?: No Do You Have Trouble Paying For Medicines?: No Are You Currently Unemployed and Looking for Work?: No Highest Level of Education Completed: Trade/Vocational Certific Do You Have Trouble With Childcare or the Care of a Family Member?: No Exam - Vital Signs Vital Signs - 24 hr 01/03/24 20:00 01/03/24 22:00 01/04/24 05:15 Temperature 36.5 C 36.4 C Pulse Rate 74 75 Respiratory Rate 13 14 Blood Pressure 151/91 H 137/69 Pulse Oximetry 99 94 Oxygen Delivery Room Air 01/04/24 08:16 01/04/24 08:55 01/04/24 08:00 Temperature 36.6 C Pulse Rate 92 Respiratory Rate 18 Blood Pressure 151/68 H Pulse Oximetry 96 95 Oxygen Delivery Room Air Room Air 01/04/24 14:00 01/04/24 17:32 Temperature 36.8 C 35.9 C L Pulse Rate 82 72 Respiratory Rate 18 18 Blood Pressure 149/72 H 159/71 H Pulse Oximetry 99 100 Oxygen Delivery - Exam HEENT: EOMI, mucous membranes moist and pink Neck: supple Lungs: clear to auscultation, normal air movement Heart: no murmurs, gallops, or rubs, regular rhythm, regular rate Abdomen: abdomen soft, non-distended, normal bowel sounds Extremities: normal pulses Integumentary: no abnormalities Neurological: normal speech Psychological: mental status NL, mood NL - Lab Results Laboratory Last Values WBC 8.3 K/mm3 (4.5-10.0) 01/04/24 07:29 RBC 4.61 M/mm3 (4.2-5.4) 01/04/24 07:29 Hgb 13.9 g/dL (12.0-15.0) 01/04/24 07:29 Hct 40.1 % (37.0-47.0) 01/04/24 07:29 MCV 87.0 fl (80-100) 01/04/24 07:29 MCH 30.2 pg (26-34) 01/04/24 07:29 MCHC 34.7 g/dl (32-36) 01/04/24 07:29 RDW 12.4 % (11.5-14.5) 01/04/24 07:29 Plt Count 436 k/mm3 (150-375) H 01/04/24 08:58 MPV 10.1 fl (7.4-10.4) 01/04/24 08:58 Immature Gran % (Auto) 0.4 % (0-0.5) 01/04/24 07: Neut % (Auto) 74.2 % (45.5-73.1) H 01/04/24 07: Lymph % (Auto) 16.1 % (18.3-44.2) L 01/04/24 07: [place] % (Auto) 6.9 % (2.6-8.5) 01/04/24 07: Eos % (Auto) 1.8 % (0-4.4) 01/04/24 07: Baso % (Auto) 0.6 % (0.2-1.2) 01/04/24 07:29 Lymph # (Auto) 1.33 K/mm3 (0.9-3.2) 01/04/24 07:29 [place] # (Auto) 0.6 K/mm3 (0.1-0.6) 01/04/24 07:29 Eos # (Auto) 0.2 K/mm3 (0-0.3) 01/04/24 07:29 Baso # (Auto) 0.1 K/mm3 (0.0-0.1) 01/04/24 07:29 Abs Immat Gran (auto) 0.03 K/mm3 (0.00-0.031) 01/04/24 07:29 Absolute Neuts (auto) 6.2 K/mm3 (1.3-6.7) 01/04/24 07: Absolute Nucleated RBC 0.000 K/mm3 (0.0-0.012) 01/04/24 07: Nucleated RBC % 0.0 % (0.0-0.2) 01/04/24 07: PT 13.4 Seconds (11.1-14.7) 01/04/24 08:58 INR 1.0 01/04/24 08:58 APTT 24.6 Seconds (22.3-36.8) 01/04/24 08:58 Puncture Site Right radial 01/02/24 17:24 ABG pH 7.475 (7.350-7.450) H 01/02/24 17:24 ABG pCO2 26.0 mmHg (35.0-45.0) L 01/02/24 17: ABG pO2 80.1 mmHg (80.0-100.0) 01/02/24: ABG PO2/FiO2 Ratio 2.22 % 01/02/24 17: ABG HCO3 18.7 mEq/l (22.0-26.0) L 01/02/24 17: ABG O2 Saturation 96.7 % (95.0-100.0) 01/02/24 17: ABG O2 Content 18.2 %vol (16.0-22.0) 01/02/24: ABG Base Excess -3.3 mEq/l (+/-2.0) 01/02/24 17: A-a Gradient 146.4 mmHg 01/02/24 17:24 Oxyhemoglobin 95.9 % THb (90.0-100.0) 01/02/24 17:24 Total Hemoglobin 13.5 g/dL (12.0-18.0) 01/02/24 17: O2 Delivery Device Nasal cannula 01/02/24 17: O2 Liters/Min 4.0 LPM 01/02/24 17:24 FiO2 36 % 01/02/24 17:24 Sodium 133 mmol/L (137-145) L 01/04/24 07:29 Potassium 3.9 mmol/L (3.4-5.0) 01/04/24 07:29 Chloride 100 mmol/L (98-107) 01/04/24 07:29 Carbon Dioxide 27 mmol/L (22-30) 01/04/24 07:29 Anion Gap 6 mmol/L (4-12) 01/04/24 07:29 BUN 9 mg/dL (7-17) 01/04/24 07:29 Creatinine 0.60 mg/dL (0.7-1.0) L 01/04/24 07:29 Estim Creat Clear Calc 89 ml/min 01/04/24 07:29 Estimated GFR > 60 (59-) 01/04/24 07:29 Glucose 139 mg/dL (65-110) H 01/04/24 07:29 Serum Osmolality 273 mOsm/kg (278-305) L 01/03/24 06:54 Lactic Acid 0.9 mmol/L (0.7-2.0) 01/02/24 20:07 Calcium 9.2 mg/dL (8.4-10.2) 01/04/24 07:29 Phosphorus 3.1 mg/dL (2.5-4.5) 01/02/24 16:28 Magnesium 1.8 mg/dL (1.6-2.3) 01/02/24 16:28 Total Bilirubin 0.7 mg/dL (0.2-1.3) 01/04/24 07:29 AST 27 U/L (14-36) 01/04/24 07:29 ALT 19 U/L (6-35) 01/04/24 07:29 Alkaline Phosphatase 168 U/L (38-126) H 01/04/24 07:29 Lactate Dehydrogenase 198 U/L (120-246) 01/02/24 19:03 Troponin I Cancelled 01/02/24 16:46 NT-Pro-B Natriuret Pep 341 pg/mL (19.9-100) H 01/02/24 16:28 Total Protein 8.0 g/dL (6.3-8.2) 01/04/24 07:29 Albumin 4.0 g/dL (3.5-5.1) 01/04/24 07:29 Triglycerides 143 mg/dL (<150) 01/02/24 19:03 Cholesterol 207 mg/dL (0-200) H 01/02/24 19:03 Amylase 75 U/L (30-110) 01/02/24 19:03 Lipase 222 U/L (23-300) 01/02/24 16:28 TSH (Reflex) 1.910 uIU/mL (0.465-4.68) 01/02/24 16:28 Urine Color Yellow (Yellow) 01/03/24 02:00 Urine Appearance Clear (Clear) 01/03/24 02:00 Urine pH 6.0 (5.0-9.0) 01/03/24 02:00 Ur Specific Moran 1.030 (1.001-1.035) 01/03/24 02:00 Urine Protein Negative mg/dL (Negative) 01/03/24 02:00 Urine Glucose (UA) Negative mg/dL (Negative) 01/03/24 02:00 Urine Ketones 1+ mg/dL (Negative) H 01/03/24 02:00 Ur Blood (Man) Negative (Negative) 01/03/24 02:00 Urine Nitrate Negative (Negative) 01/03/24 02:00 Urine Bilirubin Negative (Negative) 01/03/24 02:00 Urine Urobilinogen 1.0 mg/dL (<2.0) 01/03/24 02:00 Leukocyte Esterase Rfl Negative KEVIN/UL (Negative) 01/03/24 02:00 Urine Osmolality 342 mOsm/kg (50-1200) 01/03/24 02:00 Ur Random Sodium 11 meq/L 01/03/24 02:00 Pleural Fluid Source Pleural fluid 01/02/24 16:46 Pleural Color Yellow (Colorless) 01/02/24 16:46 Pleural Appearance Hazy (Clear) 01/02/24 16:46 Pleural pH 7.446 (7.210-7.500) 01/02/24 16:46 Pleural RBC 2000 /uL (0-50389) 01/02/24 16:46 Pleural Nuc Cells 3881 /uL (0-1000) H 01/02/24 16:46 Pleural Neutrophils 15 % (0-25) 01/02/24 16:46 Pleural Lymphocytes 59 % 01/02/24 16:46 Pleural Monocytes 6 % 01/02/24 16:46 Pleural Macrophages 17 % 01/02/24 16:46 Pleural Mesothelial 3 % 01/02/24 16:46 Influenza A (RT-PCR) Negative (Negative) 01/03/24 02:08 Influenza B (RT-PCR) Negative (Negative) 01/03/24 02:08 RSV (RT-PCR) Negative (Negative) 01/03/24 02:08 SARS-CoV-2 RNA (RT-PCR) Negative (Negative) 01/03/24 02:08 Meds Home Medications Medication Instructions Recorded Confirmed Type cetirizine 10 mg tablet (Zyrtec) 10 mg PO DAILY 01/02/24 01/02/24 History levothyroxine 175 mcg tablet 175 mcg PO DAILY 01/02/24 01/02/24 History (Synthroid) rosuvastatin 5 mg tablet 5 mg PO DAILY 01/02/24 01/02/24 History tirzepatide 10 mg/0.5 mL 10 mg subcut 01/02/24 History subcutaneous pen injector (Mounjaro) ursodiol 500 mg tablet 1,500 mg PO DAILY 01/02/24 01/02/24 History Allergies Allergy/AdvReac Type Severity Reaction Status Date / Time No Known Allergies Allergy Verified 01/02/24 15:28 Results - Labs CBC & Chem 7: 01/04/24 08:58 01/04/24 07:29 Labs: Short CBC 01/04/24 01/04/24 Range/Units 07:29 08:58 WBC 8.3 (4.5-10.0) K/mm3 Hgb 13.9 (12.0-15.0) g/dL Hct 40.1 (37.0-47.0) % Plt Count 448 H 436 H (150-375) k/mm3 BMP 01/04/24 07:29 Sodium 133 L Potassium 3.9 Chloride 100 Carbon Dioxide 27 BUN 9 Creatinine 0.60 L Glucose 139 H Calcium 9.2 Liver Function 01/04/24 Range/Units 07:29 Total Bilirubin 0.7 (0.2-1.3) mg/dL AST 27 (14-36) U/L ALT 19 (6-35) U/L Alkaline Phosphatase 168 H (38-126) U/L Albumin 4.0 (3.5-5.1) g/dL Assessment and Plan - Additional Plan Recurrent pleural effusion. Patient is a pleasant 63-year-old female came into the hospital with shortness of breath and dry cough for about 2 weeks duration. She denies any weight loss. She denies any previous history of malignancy. She has a history of smoking for very short time in early young age. She has a family history of colon cancer in the mother. Chest CTA showed large right-sided pleural effusion and soft tissue attenuation posterior to the right 4th rib measuring 17 x 24 mm. Patient had thoracentesis done and pleural cytology report is pending. These findings are worrisome for malignant pleural effusion. I have provided her my office information for follow-up. We will order PET scan as an outpatient. Based on the pathological confirmation of diagnosis will provide treatment recommendations. I have answered all the questions to patient's satisfaction.
[2024-01-04 21:23] VITALS: BP 119/61; PULSE 85; RESP 16; TEMP 36.9; O2SAT 97
[2024-01-04] MEDS: FLUTICASONE PROPIONATE 0.05% NA SPR 16 GM BTL (*BKC) 1 SPRAY NASAL (22:08)
[2024-01-05 06:00] VITALS: BP 140/58; PULSE 72; RESP 16; TEMP 36.7; O2SAT 97
[2024-01-05] MEDS: LEVOTHYROXINE SODIUM 75 MCG TABLET PO (06:19)
[2024-01-05] MEDS: LEVOTHYROXINE SODIUM 100 MCG TABLET PO (06:19)
[2024-01-05 06:22] LABS: Basophils Absolute Auto 0.1 K/mm3 (0.0-0.1); Basophils Percent Auto 0.6 % (0.2-1.2); Eosinophils Absolute Auto 0.2 K/mm3 (0-0.3); Eosinophils Percent Auto 2.3 % (0-4.4); Hematocrit 34.1 % (37.0-47.0); Hemoglobin 11.5 g/dL (12.0-15.0); Immature Granulocyte Absolute 0.03 K/mm3 (0.00-0.031); Immature Granulocyte Percent A 0.4 % (0-0.5); Lymphocytes Absolute Auto 1.49 K/mm3 (0.9-3.2); Lymphocytes Percent Auto 17.9 % (18.3-44.2); Mean Corpuscular HGB Conc 33.7 g/dl (32-36); Mean Corpuscular Hemoglobin 29.5 pg (26-34); Mean Corpuscular Volume 87.4 fl (80-100); Monocytes Absolute Auto 0.6 K/mm3 (0.1-0.6); Neutrophils Percent Auto 71.8 % (45.5-73.1); Platelet Count Result 343 k/mm3 (150-375); Red Cell Distribution Width 12.3 % (11.5-14.5); White Blood Count 8.3 K/mm3 (4.5-10.0)
[2024-01-05 06:37] LABS: Alanine Aminotransferase 14 U/L (6-35); Albumin Level 3.2 g/dL (3.5-5.1); Alkaline Phosphatase 120 U/L (38-126); Anion Gap 6 mmol/L (4-12); Aspartate Amino Transferase 21 U/L (14-36); Bilirubin,Total 0.6 mg/dL (0.2-1.3); Blood Urea Nitrogen 9 mg/dL (7-17); Calcium 8.6 mg/dL (8.4-10.2); Carbon Dioxide 25 mmol/L (22-30); Chloride 104 mmol/L (98-107); Estimated CRCL calculation 89 ml/min; Estimated Glomerular Filt Rate > 60; Glucose 119 mg/dL (65-110); Potassium 3.4 mmol/L (3.4-5.0); Sodium 135 mmol/L (137-145)
[2024-01-05] MEDS: ROSUVASTATIN 5 MG TABLET PO (08:47)
[2024-01-05] MEDS: guaiFENesin 12 HR 600 MG TABCR PO (08:47)
[2024-01-05] MEDS: LORATADINE 10 MG TABLET PO (08:47)
--- NOTE | 2024-01-05 11:05 | P.DS_ITS ---
DS: Admitting Diagnosis Discharge Date 01/05/24 Admitting Diagnosis Shortness of breath DS: Discharge Diagnosis Discharge Diagnosis (1) Pleural effusion: Code(s): J90 - Pleural effusion, not elsewhere classified Status: Acute (2) Pleural mass: Code(s): J94.8 - Other specified pleural conditions Status: Acute (3) Hyponatremia: Code(s): E87.1 - Hypo-osmolality and hyponatremia Status: Acute (4) Hypothyroidism (acquired): Code(s): E03.9 - Hypothyroidism, unspecified Status: Acute (5) Hyperlipidemia: Code(s): E78.5 - Hyperlipidemia, unspecified Status: Acute DS: Summary Hospital Course Hospital Course: * chest x-ray showing large right pleural effusion with airspace opacities at the right lung base consistent with atelectasis versus pneumonia * chest CTA showed large right-sided pleural effusion with probable studding of the undersurface of the right pleura showing soft tissue attenuation focus identified posteriorly to the right 4th rib at the level of the Coastal chondral junction identified for which an underlying mass is suspected, this abnormality measures 17 x 24 mm and is best identified on axial image 121, an additional focus of soft tissue attenuation is identified along the undersurface of the right pleura at the level of the right scapula measuring 17 x 20 mm, multiple additional abnormal attenuation foci identified within the periphery along the undersurface of the pleura within the right hemithorax are present. * Ultrasound-guided thoracentesis yielded 1400 mL of joaquín colored fluid on 01/01, Ultrasound guided Thoracentesis on 01/03 with 1550 thin yellow liquid. * pleural fluid was sent for labs and cytology * nucleated cells were elevated * Blood cultures no growth to date. * white blood cell count on hematology labs was 10.5, now 8.3 * Pulmonology followed and reported preliminary pleural fluid showed malignant cells in pleural fluid. Oncology saw patient and will see patient in their office next week for further work up. * Pleural fluid final reports are not back yet. Status at Discharge Functional status at discharge: independent ambulation Overall status at discharge: patient is progressing back to baseline Time Spent with Patient Time attestation: Total time spent providing and/or coordinating discharge services: Time spent: Greater than 30 minutes Exam Const: General: comfortable and no acute distress Eyes: Sclera: sclerae normal Neck: Neck: supple Resp: Effort & Inspection: normal respiratory effort Auscultation: clear to auscultation bilaterally Cardio: Rate: regular rate Rhythm: regular rhythm GI: GI Palp: Yes Soft to palpation Auscultation: normal bowel sounds Skin: General skin exam: no rashes or lesions noted Neuro: General: gait normal Extrem: General: normal to inspection Psych: Mental Status: mental status grossly normal Affect: normal affect DS: Data Data Completed and Pending Pending studies at discharge: Pending at discharge 01/02/24 16:36 Cytology [PTH] Routine 01/04/24 08:17 Cytology [PTH] Routine Labs on day of discharge: Labs from last 24 hours 01/05/24 01/03/24 01/03/24 05:56 06:54 02:00 WBC 8.3 RBC 3.90 L Hgb 11.5 L Hct 34.1 L MCV 87.4 MCH 29.5 MCHC 33.7 RDW 12.3 Plt Count 343 MPV 10.0 Immature Gran % (Auto) 0.4 Neut % (Auto) 71.8 Lymph % (Auto) 17.9 L [place] % (Auto) 7.0 Eos % (Auto) 2.3 Baso % (Auto) 0.6 Lymph # (Auto) 1.49 [place] # (Auto) 0.6 Eos # (Auto) 0.2 Baso # (Auto) 0.1 Abs Immat Gran (auto) 0.03 Absolute Neuts (auto) 6.0 Absolute Nucleated RBC 0.000 Nucleated RBC % 0.0 Sodium 135 L Potassium 3.4 Chloride 104 Carbon Dioxide 25 Anion Gap 6 BUN 9 Creatinine 0.60 L Estim Creat Clear Calc 89 Estimated GFR > 60 Glucose 119 H Serum Osmolality 273 L Calcium 8.6 Total Bilirubin 0.6 AST 21 ALT 14 Alkaline Phosphatase 120 Total Protein 6.0 L Albumin 3.2 L Urine Osmolality 342 Preliminary micro results at discharge 01/02/24 16:46 Anaerobic Culture - Preliminary Pleural Fluid Aerobic Culture - Preliminary Fungal Culture - Preliminary 01/02/24 16:46 Acid Fast Bacilli Culture - Preliminary Pleural Fluid 01/02/24 19:02 Blood Culture - Preliminary Blood 01/02/24 19:02 Blood Culture - Preliminary Blood Discharge Plan Discharge Attending physician on discharge: Willie Valle Consulting providers: Adan Arrington; Raman Kee Discharging Clinician: Margret Roberts Anticipated Discharge Date/Time: 01/05/24 12:00 Patient Disposition: Home, Self-Care Activity: june shower Diet: regular Discharge Instructions: * Follow up with Dr. Arrington oncologist next week * If you develop shortness of breath not improved with rest or difficulty breathing go to the emergency room. Patient Instructions: Pleural Effusion (DC) Stand Alone Forms: General Discharge Information Follow-up/Referrals: Adan Arrington MD [Physician] - Call for Appointment Discharge Medications: Continued levothyroxine [Synthroid] 175 mcg tablet 175 mcg PO DAILY cetirizine [Zyrtec] 10 mg Tablet 10 mg PO DAILY rosuvastatin 5 mg tablet 5 mg PO DAILY ursodiol 500 mg tablet 1,500 mg PO DAILY Mounjaro 10 mg/0.5 mL pen injector 10 mg SUBCUT Rx Instructions: sunday Date of admission: 01/02/24 17:58 Primary Care Provider: UNKNOWN,DOCTOR Admitting Provider: Reynaldo Rios Attending physician on admission: Reynaldo Rios Condition: Stable Hospitalist MIPS Heart Failure (Exclusion) Patient has history of Heart Transplant or Left Ventricular Assistive Device?: No IF YES, STOP HERE Heart Failure (Qualifier) Patient has current or prior documentation of LVEF less than or equal to 40%, or mod/servere depressed LVSF?: No IF NO, STOP HERE
--- NOTE | 2024-01-05 13:05 | PC.NURSE ---
On 01/05/24, the HEAD KNITTING MACHINE FIXER, Klaudia, provided care and completed [facility] documentation on this patient. I have reviewed the HEAD KNITTING MACHINE FIXER's documentation and agree with the findings.
--- NOTE | 2024-01-08 08:08 | PC.NURSE ---
Blood cx are negative.
[2024-01-20 12:25] LABS: Albumin Pleural Fluid 2.6 g/dL; Amylase, Pleural Fluid 28 U/L; Glucose Pleural Fluid 161 mg/dL; LDH Pleural Fluid 325 U/L; Total Protein Pleural Fluid 4.7 g/dL
== END 2024-01-05 12:25 | disposition home or self-care (01) | DRG 187 ==
LOC: ANHED 17:58 → ANH3MEDSUR 18:21
PROVIDERS: Internal Medicine Pulmonary Disease; Nurse Practitioner Acute Care; Admitting Provider Internal Medicine; Emergency Provider Emergency Medicine; Visit Provider Nurse Practitioner Family
DX: J90 Pleural effusion, not elsewhere classified (principal); E87.1 Hypo-osmolality and hyponatremia; J94.8 Other specified pleural conditions; E78.5 Hyperlipidemia, unspecified; M19.90 Unspecified osteoarthritis, unspecified site; E11.9 Type 2 diabetes mellitus without complications; E89.0 Postprocedural hypothyroidism; Z20.822 Contact with and (suspected) exposure to COVID-19; Z80.0 Family history of malignant neoplasm of digestive organs; Z87.891 Personal history of nicotine dependence
CPT/HCPCS: 32555; 36415; 36600; 71045; 71275; 80053; 81003; 82040; 82042; 82150; 82247; 82465; 82805; 82945; 82947; 83605; 83615; 83690; 83735; 83880; 83930; 83935; 83986; 84100; 84155; 84157; 84300; 84311; 84443; 84478; 84484; 85018; 85025; 85049; 85610; 85730; 87015; 87040; 87070; 87075; 87102; 87116; 87205; 87206; 87637; 88108; 88305; 88342; 89051; 93005; 99285; A9270; J1650; Q9967

== ENCOUNTER 2024-01-31 13:22 | Outpatient (CLI) | payer BC, SELFPAY ==
--- NOTE | ~2024-01-31 | PE_ITS ---
EXAMINATION: PET skull to mid thigh DATE: 01/31/2024 15:21 INDICATION: Malignant pleural effusion. TECHNIQUE: Blood glucose level was 127 mg/dL. 10.529 mCi of 18-fluorodeoxyglucose (18-FDG) was admini stered i.v. Low dose computed tomography (CT) images were acquired from the base of the brain to the proximal thighs for attenuation correction and anatomic localization. Automated exposure control was employed. Dose-length product (DLP) was 1167 mGy-cm. Positron emission tomography (PET) images were a cquired in the same distribution. COMPARISON: Chest CT 01/02/2024 FINDINGS: Head/neck: There are no pathologically enlarged lymph nodes. Chest: There is a large right pleural effusion. There is nodular pleural thickening in right hemithor ax with increased activity. For example, a 3.0 x 2.3 cm pleural mass previously measured 2.5 x 1.8 cm . There is passive atelectasis in right lung. Again seen is leftward shift of the mediastinum. The he art size is normal. There are coronary artery calcifications. No pericardial effusion. Abdomen/pelvis/proximal thighs: The liver, spleen, pancreas, gallbladder, adrenal glands, and kidneys are normal. There are fibroids in the uterus. There are no dilated loops of bowel. The appendix is n ormal. There are no pathologically enlarged lymph nodes. There is no free intraperitoneal fluid. Ther e is no osseous malignancy. IMPRESSION: 1. Large right pleural effusion with worsened nodular pleural thickening, consistent with metastatic disease. Reviewed, dictated and finalized at location A. EMATICS PROFESSOR IMPRESSION: 1. Large right pleural effusion with worsened nodular pleural thickening, consi stent with metastatic disease.
[2024-01-31 13:55] LABS: Glucose Point of Care 127 mg/dl (65-105)
== END 2024-01-31 13:23 | disposition home or self-care (01) ==
PROVIDERS: PCP Internal Medicine; Visit Provider Internal Medicine Hematology & Oncology
DX: J98.4 Other disorders of lung (principal); J91.0 Malignant pleural effusion
CPT/HCPCS: 78815; A9552

== ENCOUNTER 2024-02-05 05:24 | Outpatient (CLI) | payer BC, SELFPAY ==
[2024-02-04 14:58] VITALS: BMI 34.0
--- NOTE | 2024-02-04 14:59 | PC.NURSE ---
Pre Radiology instructions Report to the Imaging center on date _12-04-0938_ at time _1000_ for procedure Time: _1030_ YOU MAY BE MONITORED AT HOSPITAL FOR UP TO 4 HOURS AFTER YOUR PROCEDURE. A visitor will be allowed to accompany the patient into the hospital. You and your visitor will be asked to self-screen and do not enter if you have any COVID symptoms. A mask is OPTIONAL within the hospital. Patients are to have no food or drink 6 hours prior to procedure time Driving will be restricted after the procedure, you must have a person to drive you home. Labs will be drawn in preop area and once reviewed, you will be taken to radiology area for procedure. When the procedure is completed, you will be taken to outpatient where you will be monitored for several hours. You may have one visitor in this area. Other than holding anti-coagulants, patient may take other medication(s) as scheduled. Prior to your appointment date patients are instructed to hold anti-coagulants after discussing with ordering provider to stop. If unable to discontinue anti-coagulants please notify radiologist. ? No aspirin or warfarin (Coumadin) for 7 days prior to the procedure. ? No clopidogrel (Plavix), ticagrelor (Brilinta), prasugrel (Effient) or dabigatran (Pradaxa) for 5 days prior to the procedure. ? No rivaroxaban (Xarelto), apixaban (Eliquis), dipyridamole (Aggrenox or Persantine) or cilostazol (Pletal) for 2 days prior to the procedure. Medications to discontinue per physician: __None Date to take last dose: Please leave all valuables, including medications, at home the day of procedure. The hospital will not accept responsibility for valuables. Wear comfortable, loose fitting clothing.? Follow any additional instructions given to you from ordering provider. Telephone instructions given to ___and asked if any additional questions and then verbalized understanding. Patient advised to call scheduling provider office or registration scheduling [phone] if any additional questions.
[2024-02-05] VITALS (7 sets, daily range): BP systolic 130–144; BP diastolic 66–77; PULSE 65–77; RESP 14–18; O2SAT 94–96
--- NOTE | ~2024-02-05 | XR_ITS ---
EXAMINATION: [id number] DATE: 02/05/2024 10:49 INDICATION: Right pleural effusion status post thoracentesis. TECHNIQUE: Frontal and lateral views of the chest were obtained. COMPARISON: Chest 2 views 01/04/2024 FINDINGS: There is a large pleural effusion. There are airspace opacities at right lung base, likely atelectasis. No pneumothorax. The heart size is normal. IMPRESSION: 1. Large right pleural effusion. Reviewed, dictated and finalized at location A. D BANK TECHNICIAN
--- NOTE | ~2024-02-05 | US_ITS ---
EXAMINATION: US thoracentesis DATE: 02/05/2024 12:37 INDICATION: pleural effusion TECHNIQUE: The procedure and its risks, benefits, and alternatives were discussed with the patient. P otential risks discussed included bleeding, infection, and pneumothorax. The patient understood the r isks and agreed to proceed. The skin was prepped and draped in sterile fashion. 1% lidocaine was used for local anesthesia. Under ultrasound guidance, a 5 Fr catheter with trochar was advanced into the right pleural effusion. Fluid was aspirated. The catheter was removed, and a dressing was applied. Th ere were no immediate complications. FINDINGS: Ultrasound images demonstrate a right pleural effusion and the catheter within the fluid. IMPRESSION: 1. Successful ultrasound-guided thoracentesis yielding 1000 mL of joaquín-colored fluid. Reviewed, dictated and finalized at location A. ENTARY TUTOR IMPRESSION: 1. Successful ultrasound-guided thoracentesis yielding 1000 mL of joaquín-colore d fluid.
--- OUTSIDE RECORDS SUMMARY | 2024-02-12 03:43 | XMS_ITS | Encounter Summary ---
Author Organization [facility] Address [address] [place] [address]. 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 No / Unsure 09/12/2019 5:21 AM CDT documented as of this encounter Plan of Treatment Not on file documented as of this encounter Visit Diagnoses Not on filedocumented in this encounter Care Teams Project Management It Specialist Relationship Specialty Start Date End Date Anette Gutierrez MD [address] [place] [id number] PCP - General INTERNAL MEDICINE 05/22/18 Eri Serna MD [address] [place] [address] ENDOCRINOLOGY 05/22/18 documented as of this encounter
--- OUTSIDE RECORDS SUMMARY | 2024-02-12 03:43 | XMS_ITS | Encounter Summary ---
Author Organization [facility] Address [address] [place] [address]. 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 Signatures Electronically signed by : Aline Guardado L.P.N.; May 23 2017 1:56PM SOFTWARE TECHNICAL LEAD (Author) documented in this encounter Plan of Treatment Not on file documented as of this encounter Visit Diagnoses Not on filedocumented in this encounter
--- OUTSIDE RECORDS SUMMARY | 2024-02-12 03:43 | XMS_ITS | Encounter Summary ---
Author Organization [facility] - [facility] Address [address] [place] [address]. [place] [address] [place] [address] Care Team Providers Care Weight And Balance Control Agent Name Role Phone Anette Gutierrez MD Primary Care Provider [phone] Eri Serna MD Unavailable [phone] Encounter Details Date Type Department Care Team (Late st Contact Info) Description 09/09/2019 Orders Only [facility] Medical Group Diabetes and Endocrinology - [address] [address] Eri Serna MD [address] [place] [address] Social History Tobacco Use Types Packs/Day Years Used Date Smoking Tobacco: Former Smokeless Tobacco: Never Comments:Quit 35 years ago Comments Unknown Sex and Gender Information Value Date Recorded Sex Assigned at Not on file 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 Gender Identity Not on file Sexual Orientation Not on file documented as of this encounter Progress Notes * Maria Ines Stroud MA - 09/09/2019 12:50 PM CDT Lab orders entered, my chart message sent documented in this encounter Plan of Treatment Not on file documented as of this encounter Visit Diagnoses Diagnosis Hypothyroidism- Primary Unspecified hypothyroidism documented in this encounter Care Teams Weight And Balance Control Agent Relationship Specialty Start Date End Date Anette Gutierrez MD [address] [place] [address] PCP - General INTERNAL MEDICINE 05/22/18 Eri Serna MD [address] [place] [address] ENDOCRINOLOGY 05/22/18 documented as of this encounter
--- OUTSIDE RECORDS SUMMARY | 2024-02-12 03:43 | XMS_ITS | Encounter Summary ---
Author Organization [facility] Address [address] [place] [address]. [place] [address] [place] [address] Care Team Providers Care Science Tutor Name Role Phone Anette Gutierrez MD Primary Care Provider [phone] Eri Serna MD Unavailable [phone] Reason for Visit * Reason Comments Lab (SCAN) Encounter Details Date Type Department Care Team (Latest Contact Info) Description 08/10/2020 Scan HEALTH INFO [facility] Scanned, Documents Lab (SCAN) Social History Tobacco Use Types Packs/Day Years Used Date Smoking Tobacco: Former Smokeless Tobacco: Never Comments:Quit 35 years ago PHQ-2 Answer Date Recorded PHQ-2 Score - If the patient scores above 3, please move on to questions 3-9 0 08/10/2020 Comments Unknown Sex and Gender Information Value Date Recorded Sex Assigned at Not on file 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 No / Unsure 08/10/2020 12:39 AM CDT documented as of this encounter Plan of Treatment Not on file documented as of this encounter Procedures Procedure Name Priority Date/Time Associated Diagnosis Comments OUTSIDE LAB (SCAN ORDER) 08/10/2020 documented in this encounter Results * OUTSIDE LAB (SCAN) (08/10/2020) 08/10/2020 Narrative 08/10/2020 Ordered by an unspecified provider. us Documents Scanned SCANNING Final Result documented in this encounter Visit Diagnoses Not on filedocumented in this encounter Additional Health Concerns Assessment Noted Time PHQ-9 Depression Total Score: 0 08/11/19 21 2:40 PM CDT documented as of this encounter Care Teams Science Tutor Relationship Specialty Start Date End Date Anette Gutierrez MD [address] [place] [address] PCP - General INTERNAL MEDICINE 05/22/18 Eri Serna MD [address] [place] [address] ENDOCRINOLOGY 05/22/18 documented as of this encounter
--- OUTSIDE RECORDS SUMMARY | 2024-02-12 03:43 | XMS_ITS | Encounter Summary ---
Author Organization [facility] Address [address] [place] [address]. [place] [address] [place] [address] Care Team Providers Care Restaurant Server Name Role Phone Anette Gutierrez MD Primary Care Provider [phone] Eri Serna MD Unavailable [phone] Reason for Visit * Reason Onset Date Comments Lab Results 09/15/2019 Encounter Details Date Type Department Care Team (Late st Contact Info) Description 09/15/2019 Telephone [facility] Medical Group Diabetes and Endocrinology - [place] [address] [place] [address] Eri Serna MD [address] [place] [address] Lab Results Social History Tobacco Use Types Packs/Day Years Used Date Smoking Tobacco: Former Smokeless Tobacco: Never Comments:Quit 35 years ago Comments Unknown Sex and Gender Information Value Date Recorded Sex Assigned at Not on file 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 No / Unsure 09/12/2019 5:21 AM CDT documented as of this encounter Progress Notes * Aline Guardado LPN - 09/15/2019 3:13 PM CDT Pt notified. * Eri Serna MD - 09/15/2019 2:40 PM CDT Thyroid functions look good. No change in the dose of thyroid hormone documented in this encounter Plan of Treatment Not on file documented as of this encounter Visit Diagnoses Not on filedocumented in this encounter Care Teams Restaurant Server Relationship Specialty Start Date End Date Anette Gutierrez MD [address] [place] [address] PCP - General INTERNAL MEDICINE 05/22/18 Eri Serna MD [address] [place] [address] ENDOCRINOLOGY 05/22/18 documented as of this encounter
--- OUTSIDE RECORDS SUMMARY | 2024-02-12 03:43 | XMS_ITS | Encounter Summary ---
Author Organization [facility] Address [address] [place] [address]. [place] [address] [place] [address] Care Team Providers Care Plastics Fabrication Supervisor Name Role Phone Anette Gutierrez MD Primary Care Provider [phone] Eri Serna MD Unavailable [phone] Reason for Visit * Reason Onset Date Comments Lab Results 10/02/2018 Encounter Details Date Type Department Care Team (Late st Contact Info) Description 10/02/2018 Telephone [facility] Medical Group Diabetes and Endocrinology - Prim [address] [place] [address] Eri Serna MD [address] [place] [address] Lab Results Social History Tobacco Use Types Packs/Day Years Used Date Smoking Tobacco: Former Smokeless Tobacco: Never Comments:Quit 35 years ago Comments Unknown Sex and Gender Information Value Date Recorded Sex Assigned at Not on file 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 * rEi Serna MD - 10/02/2018 1:29 PM CDT Thyroid numbers look better than last time. Continue the same dose of thyroid hormone * Maria Ines Stroud MA - 10/02/2018 12:45 PM CDT Images from the original note were not included. Abnormal lab results for your review documented in this encounter Plan of Treatment Not on file documented as of this encounter Visit Diagnoses Not on filedocumented in this encounter Care Teams Plastics Fabrication Supervisor Relationship Specialty Start Date End Date Anette Gutierrez MD [address] [place] [address] PCP - General INTERNAL MEDICINE 05/22/18 Eri Serna MD [address] [place] [address] ENDOCRINOLOGY 05/22/18 documented as of this encounter
--- OUTSIDE RECORDS SUMMARY | 2024-02-12 03:43 | XMS_ITS | Encounter Summary ---
Author Organization [facility] - [facility] Address [address] [place] [address]. [place] [address] [place] [address] Care Team Providers Care Rn Behavioral Health Name Role Phone Anette Gutierrez MD Primary Care Provider [phone] Eri Serna MD Unavailable [phone] Encounter Details Date Type Department Care Team (Late st Contact Info) Description 08/04/2020 Orders Only 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 Gender Identity Not on file Sexual Orientation Not on file documented as of this encounter Progress Notes * Maria Ines Stroud MA - 08/04/2020 9:07 AM CDT Lab orders entered and message left for patient documented in this encounter Plan of Treatment Not on file documented as of this encounter Visit Diagnoses Diagnosis Hypothyroidism- Primary Unspecified hypothyroidism documented in this encounter Care Teams Rn Behavioral Health Relationship Specialty Start Date End Date Anette Gutierrez MD [address] [place] [address] PCP - General INTERNAL MEDICINE 05/22/18 Eri Serna MD [address] [place] [address] ENDOCRINOLOGY 05/22/18 documented as of this encounter
--- OUTSIDE RECORDS SUMMARY | 2024-02-12 03:43 | XMS_ITS | Encounter Summary ---
Author Organization [facility] Address [address] [place] [address]. [place] [address] [place] [address] Care Team Providers Care Information Security Architect Name Role Phone Anette Gutierrez MD Primary Care Provider [phone] Eri Serna MD Unavailable [phone] Edilma Chun [facility] Unavailable Encounter Details Date Type Department Care Team (Latest Contact Info) Description 10/21/2020 Travel Social History Tobacco Use Types Packs/Day Years Used Date Smoking Tobacco: Former Cigarettes Q uit: 1997 Smokeless Tobacco: Never Comments:Quit 35 years ago Alcohol Use Standard Drinks/Week Comments Never 0 (1 standard drink = 0.6 oz pur e alcohol) PHQ-2 Answer Date Recorded PHQ-2 Score - If the patient scores above 3, please move on to questions 3-9 0 08/10/2020 Comments Unknown Sex and Gender Information Value Date Recorded Sex Assigned at Not on file 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 No / Unsure 10/21/2020 1:00 AM CDT documented as of this encounter Plan of Treatment Not on file documented as of this encounter Visit Diagnoses Not on filedocumented in this encounter Additional Health Concerns Assessment Noted Time PHQ-9 Depression Total Score: 0 08/11/19 21 2:40 PM CDT documented as of this encounter Care Teams Information Security Architect Relationship Specialty Start Date End Date Anette Gutierrez MD [address] [place] [address] PCP - General INTERNAL MEDICINE 05/22/18 Eir Serna MD [address] [place] [address] ENDOCRINOLOGY 05/22/18 Edilma Chun, LOADER SEMICONDUCTOR DIES- [facility] [place] [address] [place] Roping Tender NURSE PRACTITIONER 10/08/20 documented as of this encounter
--- OUTSIDE RECORDS SUMMARY | 2024-02-12 03:43 | XMS_ITS | Encounter Summary ---
Author Organization [facility] Address [address] [place] [address]. [place] [address] [place] [address] Care Team Providers Care Pst Specialist Name Role Phone Anette Gutierrez MD Primary Care Provider [phone] Eri Serna MD Unavailable [phone] Gibson ChunTRACE Unavailable Reason for Referral * Procedure (Routine) - Closed Specialty Diagnoses / Procedures Referred By Contkayla schulz Referred To Contact Diagnoses Chest pain Procedures Cardiology Stress Test Only, Exercise [facility] [address] [place] [address] Phone: tel: Referral ID Status Reason Start Date Expiration Date Visits Re quested Visits Authorized [id number] Closed 10/21/2020 11/20/2021 1 1 Reason for Visit * Imaging (Routine) - Closed Specialty Diagnoses / Procedures Referred By Charisse schulz Referred To Contact RADIOLOGY Diagnoses Shortness of breath Heart palpitations Procedures USE STRESS ECHO W CON Gibson Chun FNP-BC [address] [place] [address] Phone: tel: fax: [facility] [address] [place] [address] Phone: tel: fax: Referral ID Status Reason Start Date Expiration Date Visits Re quested Visits Authorized [id number] Closed 10/14/2020 11/14/2021 2 2 Encounter Details Date Type Department Care Team (Latest Contact Info) Description 10/21/2020 1:54 PM CDT - 10/21/2020 11:59 PM CDT Hospital Encounter [facility] [address] [place], [place] [address] Gibson Chun, [facility] [address] [place] [address] Discharge Disposition: Home or Self Care (Routine Discharge) Social History Tobacco Use Types Packs/Day Years [...] on file 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 08/25/2019 cetirizine 10 MG tablet Take 10 mg by mouth daily. clobetasol 0.05 % ointment Apply topically see administration instructions. Apply and gently massage in affected area(s) twice daily CPAP DEVICE, DME, 1 Device by Does not apply route. CPAP SUPPLIES furosemide 20 MG tablet see administration instructions. Take one tablet 2-3 days per week in the morning for swelling 09/16/2020 metFORMIN 500 MG tablet Take 1 tablet by mouth 2 (two) times daily. 09/24/2020 multivitamin tablet Take 1 tablet by mouth daily. traMADol ER 300 MG TABLET SR 24 HR 24 hr tablet Take 1 tablet by mouth daily. 0 07/23/2018 triamterene-hyd rochlorothiazid e 37.5-25 MG tablet Take 1 tablet by mouth daily. 07/29/2018 ursodiol 500 MG tablet Take 500 mg by mouth 3 (three) times daily. Take with meals 0 07/22/2018 vitamin D3, cholecalciferol , (VITAMIN D) 1000 UNIT Tab tablet Take 1,000 Units by mouth daily. levothyroxine 175 MCG tabletIndicatio ns:Hypothyroidi sm Take 1 tablet (175 mcg total) by mouth daily. 90 tablet 3 04/05/2020 1 documented as of this encounter Plan of Treatment Not on file documented as of this encounter Procedures Procedure Name Priority Date/Time Associated Diagnosis Comments USE STRESS ECHO W CON Routine 10/21/2020 3:22 PM CDT Shortness of breath Heart palpitations CARDIOLOGY STRESS TEST ONLY, EXERCISE Routine 10/21/2020 2:24 PM CDT Chest pain documented in this encounter Results * Cardiology Stress Test Only, Exercise (10/21/2020 2:24 PM CDT) 10/21/2020 2:24 PM CDT Narrative [facility] - 10/21/2020 5:27 PM CDT ? [facility] ?[address] [place], [place] ??[address] ? Test Date: ?2020-10-21 Pat Name: ? MARTIN ISABEL ? Department: ? Room: ? Gender: ? Female ? Lead Manufacturing Technician: ?? HARRISON/CASSI CISNEROS: ?1960 ? Requested By: GIBSON SOLORIO Order Number: [id number] ? Reading MD: ?? Juancarlos Valentin ? Interpretive Statements INTERPRETATION: SINUS RHYTHM LOW VOLTAGE, IVCD. DOBUTAMINE STRESS TEST 40MCG/KG/MIN MAX DOSE. ATROPINE 0.5 MG IV. DEFINITY GIVEN. ESMOLOL 40 MG TOTAL GIVEN. COMPLIANED OF HEADACHE AND SHAKINESS THAT WERE RESOLVED AND SHAKINESS RESOLVING. NO CHEST PAIN. NO ECTOPY. 1.0-1.2 MM S-T DEPRESSION LEADS II, aVF; <1.0 MM OTHER LEADS. ALL < 1.0 MM LESS THAN 1 MIN INTO RECOVERY Procedure Note Juancarlos Valentin MD - 10/21/2020 [facility] [address] [place] [address] Test Date: 2020-10-21 Pat Name: MARTIN ISABEL Department: Room: Gender: Female Lead Manufacturing Technician: MEKA : 1960 Requested By: GIBSON SOLORIO Order Number: [id number] Reading MD: Juancarlos Valentin Interpretive Statements INTERPRETATION: SINUS RHYTHM LOW VOLTAGE, IVCD. DOBUTAMINE STRESS TEST 40MCG/KG/MIN MAX DOSE. ATROPINE 0.5 MG IV. DEFINITY GIVEN. ESMOLOL 40 MG TOTAL GIVEN. COMPLIANED OF HEADACHE AND SHAKINESS THAT WERE RESOLVED AND SHAKINESS RESOLVING. NO CHEST PAIN. NO ECTOPY. 1.0-1.2 MM S-T DEPRESSION LEADS II, aVF; <1.0 MM OTHER LEADS. ALL < 1.0 MM LESS THAN 1 MIN INTO RECOVERY Gibson Solorio CAP BLOCKER-BC CV CARDIAC SE RVICES ORDERABLES Final Result [facility] documented in this encounter Visit Diagnoses Diagnosis Chest pain- Primary Chest pain, unspecified documented in this encounter Administered Medications Inactive Administered Medications - up to 3 most recent administrations Medication Order MAR Action Action Date Dose Rate Site atropine injection 2 mg 2 mg, Intravenous, Once, 1 dose, On Rupinder 10/21/20 at 1430Indications:Chest pain Given 10/21/2020 3:10 PM CDT 0.5 mg DOBUTamine (DOBUTREX) 1 mg/mL in D5W 5-50 mcg/kg/min ? 96.2 kg (28.86-288.6 mL/hr, rounded to 28.9-288.6 mL/hr), Intravenous, Continuous, Starting on Rupinder 10/21/20 at 1430, Until 10/23/20 at 0243, Per dobutamine stress protocolIndications:Chest pain New Bag 10/21/2020 2:55 PM CDT 5 mcg/kg/min 28.9 mL/hr esmolol (BREVIBLOC) injection 50 mg 50 mg, Intravenous, Once, 1 dose, On Rupinder 10/21/20 at 1430Indications:Chest pain Given 10/21/2020 3:14 PM CDT 40 mg perflutren lipid microsphere (DEFINITY) injection 1 mL 1 mL, Intravenous, IMG once as needed, Contrast, 1 dose, Starting on Rupinder 10/21/20 at 1400, Until Rupinder 10/21/20 at 1438Indications:Chest pain Given 10/21/2020 2:38 PM CDT 2 mLs documented in this encounter Additional Health Concerns Assessment Noted Time PHQ-9 Depression Total Score: 0 08/11/19 2:40 PM CDT documented as of this encounter Care Teams Pst Specialist Relationship Specialty Start Date End Date Anette Gutierrez MD [address] [place] [address] PCP - General INTERNAL MEDICINE 05/22/18 Eri Serna MD [address] [place] [address] ENDOCRINOLOGY 05/22/18 Gibson Chun, CAP BLOCKER- [address] [place] [address] [place] Manager Business Process NURSE PRACTITIONER 10/08/20 documented as of this encounter
--- OUTSIDE RECORDS SUMMARY | 2024-02-12 03:43 | XMS_ITS | Encounter Summary ---
Author Organization [facility] Address [address] [place] [address]. [place] [address] [place] [address] Care Team Providers Care Coach Professional Athletes Name Role Phone Anette Gutierrez MD Primary Care Provider [phone] Eri Serna MD Unavailable [phone] Gibson Travis Unavailable Reason for Referral * Imaging (Routine) - Closed Specialty Diagnoses / Procedures Referred By Contac t Referred To Contact RADIOLOGY Diagnoses Shortness of breath Heart palpitations Procedures USE STRESS ECHO W Gibson Randall FNP-BC [address] [place] [address] Phone: tel: fax: [facility] [address] [place] [address] Phone: tel: fax: Referral ID Status Reason Start Date Expiration Date Visits Re quested Visits Authorized [id number] Closed 10/14/2020 11/14/2021 2 2 Reason for Visit * Imaging (Routine) - Closed Specialty Diagnoses / Procedures Referred By Contac t Referred To Contact RADIOLOGY Diagnoses Shortness of breath Heart palpitations Procedures USE STRESS ECHO W CON Gibson Travis FNP-BC [address] [place] [address] Phone: tel: fax: [facility] [address] [place] [address] Phone: tel: fax: Referral ID Status Reason Start Date Expiration Date Visits Re quested Visits Authorized [id number] Closed 10/14/2020 11/14/2021 2 2 Encounter Details Date Type Department Care Team (Latest Contact Info) Description 10/21/2020 1:53 PM CDT Hospital Encounter [facility] Non Invasive Cardiology - [facility] [address], [place] [address] Gibson Travis, [facility] [address] [place] [address] Discharge Disposition: Home or Self [...] on file 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 90 tablet 3 04/05/2020 documented as of this encounter Progress Notes * BLAISE Franks - 10/21/2020 2:00 PM CDT normal documented in this encounter Plan of Treatment Not on file documented as of this encounter Procedures Procedure Name Priority Date/Time Associated Diagnosis Comments USE STRESS ECHO W CON Routine 10/21/2020 3:22 PM CDT Shortness of breath Heart palpitations documented in this encounter Results * USE STRESS ECHO W CON (10/21/2020 3:22 PM CDT) Anatomical Region Laterality Modality NA Cardiac Electrop hysiology 10/21/2020 2:39 PM CDT Narrative 10/21/2020 5:30 PM CDT ?Stress Echocardiography Report Pat.Name: ??MARTIN ISABEL ?Pat.ID: ?[id number] ? St.Date: ?? 10/21/2020 ? Refer.: ??[id number], GIBSON TRAVIS Exam Time: 2:39:00 PM ? Study Type:PHARM STRESS ECHO CONT DOP COL Height: ?63.78in ? Weight: ?211.2lb ? BSA: ? 2 m2 ?Age: ??[age]Y ? Sex: ? FEMALE ?BP: ?133/75 ? HR: ?65 bpm ? Sonogrphr: Kris Way RDCS, Auna Pat. Stat.:Outpatient ? Reason for Study:Palpitations, Shortness of breath History / Clinical:Arrhythmias/palpitations Procedures: Dobutamine Stress Echo, Definity was used to enhance endocardial definition. ++++++++++++++++++++++++++++++++++++ SUMMARY: ++++++++++++++++++++++++++++++++++++ 1. Incremental dobutamine doses achieved 87% of maximum predicted heart rate for age. No angina, or arrhythmias. ??Borderline criteria for ischemia in II aVF, V5, V6. ??Adequate BP response to pharmacologic stress. 2. Resting echo: LV size, wall thickness and global systolic function are normal. LVEF 60-65% ??Normal segmental wall motion. 3. Stress echo: LV size decreased, systolic function increased, and all segments augmented normally. 4. Negative for large vessel ischemia by echo wall motion criteria. ++++++++++++++++++++++++++++++++++++ FINDINGS: ++++++++++++++++++++++++++++++++++++ LV: ? The left ventricular size is normal. The left ventricular ?systolic function is normal. The calculated ejection ?fraction is 65%. WM: ? Wall motion appears normal in all segments. RV: ? The right ventricular size is normal. IVS: ?Intraventricular septum is normal. LA: ? The left atrial volume is normal ( less than 34 ml/M2). RA: ? Right atrial size is normal. IAS: ?Atrial septum is normal. MENG: ? No evidence of pericardial effusion. PA: ? Unable to reliably quantitate pulmonary systolic pressure. PVn: ?Pulmonary veins are normal. AV: ? No evidence of aortic valve stenosis. No evidence of aortic ?regurgitation. The aortic valve not well visualized. MV: ? Structurally normal mitral valve. No evidence of mitral ?regurgitation. No evidence of mitral valve stenosis. PV: ? The pulmonic valve is normal There is trace pulmonic ?regurgitation TV: ? The tricuspid valve appears structurally normal. There is ?trace tricuspid regurgitation. ++++++++++++++++++++++++++++++++++++ STRESS: ++++++++++++++++++++++++++++++++++++ Baseline Vital Signs: ?Intervention ??Dobutamine Baseline ECG Low Voltage, IVCD ? Peak Dose ??40 mg/kg/min Rest HR ?66 ?Atropine Administered: 0.5 Rest BP ?133/75 ?Duration ?? 14:28 Baseline Rhythm Normal sinus rhythm Stress Test Results: ? Contrast ?? Definity 1 ml ? Max ST: ?-1.5 mm ? Resolved ?? 11 min into Recovery Phase Symptoms and Complications: Arrhythmias None Reason for Stopping Test: Target reached Stress Induced Symptoms: Headache Leads ?II, AVF ECG Findings: ??Ischemic S-T changes (>=1 mm) occurred with stress ++++++++++++++++++++++++++++++++++++ MEASUREMENTS: ++++++++++++++++++++++++++++++++++++ ?2D Left Ventricle ?? LVIDd ? 4.57 cm ?? (3.6-5.2) LV EF(Bi-Plane) ?65 % ?(55-75) LVIDs ? 3.06 cm ?? (2.3-3.9) LVPW ?? LVPWd ? 1.11 cm ? Ventricular Septum ?? IVSd ?1.02 cm ? Ratios ?? IVS LA Biplane LAVol I BP ?24 ml/m2 ?DOPPLER LV Mass 2D ?? Value ?171 g ? LV Mass Index 2D ?? Value ? 85.5 g/m2 ? Signed 10/21/2020 05:30 PM Juancarlos Valentin M.D. Procedure Note Juancarlos Valentin MD - 10/21/2020 Stress Echocardiography Report Pat.Name: MARTIN ISABEL MALGORZATA Pat.ID: [id number] St.Date: 10/21/2020 Refer.: [id number], GIBSON TRAVIS Exam Time: 2:39:00 PM Study Type:PHARM STRESS ECHO CONT DOP COL Height: 63.78in Weight: 211.2lb BSA: 2 m2 Age: 2 1960,60Y Sex: FEMALE BP: 133/75 HR: 65 bpm Sonogrphr: Kris Way [facility] Allie Castillo Stat.:Outpatient Reason for Study:Palpitations, Shortness of breath History / Clinical:Arrhythmias/palpitations Procedures: Dobutamine Stress Echo, Definity was used to enhance endocardial definition. ++++++++++++++++++++++++++++++++++++ SUMMARY: ++++++++++++++++++++++++++++++++++++ 1. Incremental dobutamine doses achieved 87% of maximum predicted heart rate for age. No angina, or arrhythmias. Borderline criteria for ischemia in II aVF, V5, V6. Adequate BP response to pharmacologic stress. 2. Resting echo: LV size, wall thickness and global systolic function are normal. LVEF 60-65% Normal segmental wall motion. 3. Stress echo: LV size decreased, systolic function increased, and all segments augmented normally. 4. Negative for large vessel ischemia by echo wall motion criteria. ++++++++++++++++++++++++++++++++++++ FINDINGS: ++++++++++++++++++++++++++++++++++++ LV: The left ventricular size is normal. The left ventricular systolic function is normal. The calculated ejection fraction is 65%. WM: Wall motion appears normal in all segments. RV: The right ventricular size is normal. IVS: Intraventricular septum is normal. LA: The left atrial volume is normal ( less than 34 ml/M2). RA: Right atrial size is normal. IAS: Atrial septum is normal. MENG: No evidence of pericardial effusion. PA: Unable to reliably quantitate pulmonary systolic pressure. PVn: Pulmonary veins are normal. AV: No evidence of aortic valve stenosis. No evidence of aortic regurgitation. The aortic valve not well visualized. MV: Structurally normal mitral valve. No evidence of mitral regurgitation. No evidence of mitral valve stenosis. PV: The pulmonic valve is normal There is trace pulmonic regurgitation TV: The tricuspid valve appears structurally normal. There is trace tricuspid regurgitation. ++++++++++++++++++++++++++++++++++++ STRESS: ++++++++++++++++++++++++++++++++++++ Baseline Vital Signs: Intervention Dobutamine Baseline ECG Low Voltage, IVCD Peak Dose 40 mg/kg/min Rest HR 66 Atropine Administered: 0.5 Rest BP 133/75 Duration 14:28 Baseline Rhythm Normal sinus rhythm Stress Test Results: Contrast Definity [address]: -1.5 mm Resolved 11 min into Recovery Phase Symptoms and Complications: Arrhythmias None Reason for Stopping Test: Target reached Stress Induced Symptoms: Headache Leads II, AVF ECG Findings: Ischemic S-T changes (>=1 mm) occurred with stress ++++++++++++++++++++++++++++++++++++ MEASUREMENTS: ++++++++++++++++++++++++++++++++++++ 2D Left Ventricle LVIDd 4.57 cm (3.6-5.2) LV EF(Bi-Plane) 65 % (55-75) LVIDs 3.06 cm (2.3-3.9) LVPW LVPWd 1.11 cm Ventricular Septum IVSd 1.02 cm Ratios IVS LA Biplane LAVol I BP 24 ml/m2 DOPPLER LV Mass 2D Value 171 g LV Mass Index 2D Value 85.5 g/m2 Signed 10/21/2020 05:30 PM Juancarlos Valentin M.D. Gibson Machado DIRECTOR PROCESS ENGINEERING-BC ECHO Final Result documented in this encounter Visit Diagnoses Diagnosis Chest pain- Primary Chest pain, unspecified Shortness of breath Heart palpitations Palpitations documented in this encounter Additional Health Concerns Assessment Noted Time PHQ-9 Depression Total Score: 0 08/11/19 21 2:40 PM CDT documented as of this encounter Care Teams Coach Professional Athletes Relationship Specialty Start Date End Date Anette Gutierrez MD [address] [place] [address] PCP - General INTERNAL MEDICINE 05/22/18 Eri Serna MD [address] [place] [address] ENDOCRINOLOGY 05/22/18 Gibson Travis, DIRECTOR PROCESS ENGINEERING- [address] [place] [address] Richmond Cylinder Tester NURSE PRACTITIONER 10/08/20 documented as of this encounter
--- OUTSIDE RECORDS SUMMARY | 2024-02-12 03:43 | XMS_ITS | Encounter Summary ---
Author Organization [facility] Address [address] [place] [address]. [place] [address] [place] [address] Care Team Providers Care Digital Project Manager Name Role Phone Anette Gutierrez MD Primary Care Provider [phone] Eri Serna MD Unavailable [phone] Encounter Details Date Type Department Care Team (Latest Contact Info) Description 08/23/2020 Travel Social History Tobacco Use Types Packs/Day Years Used Date Smoking Tobacco: Former Smokeless Tobacco: Never Comments:Quit 35 years ago PHQ-2 Answer Date Recorded PHQ-2 Score - If the patient scores above 3, please move on to questions 3-9 0 08/10/2020 Comments Unknown Sex and Gender Information Value Date Recorded Sex Assigned at Not on file 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 No / Unsure 08/23/2020 4:17 AM CDT documented as of this encounter Plan of Treatment Not on file documented as of this encounter Visit Diagnoses Not on filedocumented in this encounter Additional Health Concerns Assessment Noted Time PHQ-9 Depression Total Score: 0 08/11/19 21 2:40 PM CDT documented as of this encounter Care Teams Digital Project Manager Relationship Specialty Start Date End Date Anette Gutierrez MD [address] [place] [address] PCP - General INTERNAL MEDICINE 05/22/18 Eri Serna MD [address] [place] [address] ENDOCRINOLOGY 05/22/18 documented as of this encounter
--- OUTSIDE RECORDS SUMMARY | 2024-02-12 03:43 | XMS_ITS | Encounter Summary ---
Author Organization [facility] Address [address] [place] [address]. [place] [address] [place] [address] Care Team Providers Care Patient Account Representative Name Role Phone Anette Gutierrez MD Primary Care Provider [phone] Eri Serna MD Unavailable [phone] Encounter Details Date Type Department Care Team (Latest Contact Info) Description 09/20/2020 Travel Social History Tobacco Use Types Packs/Day Years Used Date Smoking Tobacco: Former Smokeless Tobacco: Never Comments:Quit 35 years ago PHQ-2 Answer Date Recorded PHQ-2 Score - If the patient scores above 3, please move on to questions 3-9 0 08/10/2020 Comments Unknown Sex and Gender Information Value Date Recorded Sex Assigned at Not on file 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 No / Unsure 09/20/2020 12:58 PM CDT documented as of this encounter Plan of Treatment Not on file documented as of this encounter Visit Diagnoses Not on filedocumented in this encounter Additional Health Concerns Assessment Noted Time PHQ-9 Depression Total Score: 0 08/11/19 21 2:40 PM CDT documented as of this encounter Care Teams Patient Account Representative Relationship Specialty Start Date End Date Anette Gutierrez MD [address] [place] [address] PCP - General INTERNAL MEDICINE 05/22/18 Eri Serna MD [address] [place] [address] ENDOCRINOLOGY 05/22/18 documented as of this encounter
--- OUTSIDE RECORDS SUMMARY | 2024-02-12 03:43 | XMS_ITS | Encounter Summary ---
Author Organization [facility] Address [address] [place] [address]. 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 No / Unsure 09/20/2020 12:58 PM CDT documented as of this encounter Progress Notes * Jack Lerma MA - 10/01/2020 8:46 AM CDT Informed pt of results, pt verbalized understanding. * Eri Serna MD - 09/30/2020 4:07 PM CDT Thyroid nodules are pretty small and definitely have not gotten any bigger compared to last time which was 4 years ago. No need for biopsy at this time. documented in this encounter Plan of Treatment Not on file documented as of this encounter Visit Diagnoses Not on filedocumented in this encounter Additional Health Concerns Assessment Noted Time PHQ-9 Depression Total Score: 0 08/11/19 21 2:40 PM CDT documented as of this encounter Care Teams Educational Psychologist Relationship Specialty Start Date End Date Anette Gutierrez MD [address] [address] PCP - General INTERNAL MEDICINE 05/22/18 Eri Serna MD [address] [facility] [address] ENDOCRINOLOGY 05/22/18 documented as of this encounter
--- OUTSIDE RECORDS SUMMARY | 2024-02-12 03:43 | XMS_ITS | Encounter Summary ---
Author Organization [facility] Address [address] [place] [address]. 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 No / Unsure 08/23/2020 4:17 AM CDT documented as of this encounter Progress Notes * Linda Denny RN - 08/13/2020 2:54 PM CDT Pt aware of results and recommendations. * Linda Denny RN - 08/13/2020 2:04 PM CDT LM for pt to call office * Eri Serna MD - 08/13/2020 1:58 PM CDT Thyroid blood work looks very good. It does not look like the dose needs to be changed. If she continues to have symptoms then she may need to see primary care physician * Maria Ines Stroud MA - 08/13/2020 8:56 AM CDT Images from the original note were not included. Thyroid lab results for your review documented in this encounter Plan of Treatment Not on file documented as of this encounter Visit Diagnoses Not on filedocumented in this encounter Additional Health Concerns Assessment Noted Time PHQ-9 Depression Total Score: 0 08/11/19 21 2:40 PM CDT documented as of this encounter Care Teams Dental Assisting Instructor Relationship Specialty Start Date End Date Anette Gutierrez MD [address] [place] [address] PCP - General INTERNAL MEDICINE 05/22/18 Eri Serna MD [address] [place] [address] ENDOCRINOLOGY 05/22/18 documented as of this encounter
--- OUTSIDE RECORDS SUMMARY | 2024-02-12 03:43 | XMS_ITS | Encounter Summary ---
Author Organization [facility] Address [address] [place] [address]. 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 No / Unsure 02/10/2021 4:17 PM COMPRESSION MOLDING MACHINE SETTER documented as of this encounter Plan of Treatment Not on file documented as of this encounter Visit Diagnoses Not on filedocumented in this encounter Additional Health Concerns Assessment Noted Time PHQ-9 Depression Total Score: 0 08/11/19 21 2:40 PM CDT documented as of this encounter Care Teams Merchandising Team Lead Relationship Specialty Start Date End Date Anette Gutierrez MD [address] [place] [address] PCP - General INTERNAL MEDICINE 05/22/18 Eri Serna MD [address] [place] [address] ENDOCRINOLOGY 05/22/18 Edilma Chun, CHARGE ATTENDANT- [facility] [place] [address] [place] [facility] Safety Advisor NURSE PRACTITIONER 10/08/20 documented as of this encounter
--- OUTSIDE RECORDS SUMMARY | 2024-02-12 03:43 | XMS_ITS | Encounter Summary ---
Author Organization [facility] Address [address] [place] [address]. 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 No / Unsure 02/10/2021 4:17 PM COMMISSIONER PUBLIC WORKS documented as of this encounter Plan of Treatment Not on file documented as of this encounter Results * (ABNORMAL) HEMOGLOBIN, GLYCOSYLATED (02/10/2021 4:22 PM COMMISSIONER PUBLIC WORKS) HGB A1C 6.5(H) <5.7 % 02/10/2021 6:59 PM COMMISSIONER PUBLIC WORKS [facility] Comment: INCREASED RISK OF DIABETES <5.7% ?NON-DIABETES 5.7-6.4% INCREASED RISK FOR FUTURE DIABETES > OR = 6.5 CONSISTENT WITH DIABETES STANDARDS OF MEDICAL CARE IN DIABETES-2010 DIABETES CARE, 33(SUPP 1): S1-S61,2010 02/10/2021 4:22 PM COMMISSIONER PUBLIC WORKS us Anette Gutierrez MD LABORATORY Final Result [facility] [address] [place] [address], documented in this encounter Visit Diagnoses Diagnosis Diabetes mellitus (CMS/HCC [facility])- Primary Type II or unspecified type diabetes mellitus without mention of complication, not stated as uncontrolled documented in this encounter Additional Health Concerns Assessment Noted Time PHQ-9 Depression Total Score: 0 08/11/19 21 2:40 PM CDT documented as of this encounter Care Teams Display Designer Outside Relationship Specialty Start Date End Date Anette Gutierrez MD [address] [place] [address] PCP - General INTERNAL MEDICINE 05/22/18 Eri Serna MD [address] [place] [address] ENDOCRINOLOGY 05/22/18 Edilma Chun, [facility]- [address] [place] [address] [facility] Technology Teacher NURSE PRACTITIONER 10/08/20 documented as of this encounter
--- OUTSIDE RECORDS SUMMARY | 2024-02-12 03:43 | XMS_ITS | Encounter Summary ---
Author Organization [facility] Address [address] [place] [address]. 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
--- OUTSIDE RECORDS SUMMARY | 2024-02-12 03:43 | XMS_ITS | Encounter Summary ---
Author Organization [facility] Address [address] [place] [address]. [place] [address] [place] [address] Care Team Providers Care Aeronautical Design Engineer Name Role Phone Anette Gutierrez MD Primary Care Provider [phone] Eri Serna MD Unavailable [phone] Edilma Chun [facility]- Unavailable Reason for Visit * Reason Onset Date Comments Other 11/09/2020 Skin Irritation from BG Electrodes Encounter Details Date Type Department Care Team (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 * BLAISE Franks - 11/09/2020 3:32 PM CDT Ok to return the monitor * Tamara Foster MA - 11/09/2020 12:43 PM CDT Patient has successfully been able to monitor about 24 out of 30 days. Experiencing some skin irritation even with the sensitive electrodes. Patient willing to allow skin to heal and reapply monitor or can patient end study at this time and return monitor? HRD can send a preliminary if needed? Thank You. documented in this encounter Plan of Treatment Not on file documented as of this encounter Visit Diagnoses Not on filedocumented in this encounter Additional Health Concerns Assessment Noted Time PHQ-9 Depression Total Score: 0 08/11/19 21 2:40 PM CDT documented as of this encounter Care Teams Aeronautical Design Engineer Relationship Specialty Start Date End Date Anette Gutierrez MD [address] [place] [address] PCP - General INTERNAL MEDICINE 05/22/18 Eri Serna MD [address] [facility] [place] [address] ENDOCRINOLOGY 05/22/18 Edilma Chun, MANAGER SERVICES- [address] [place] [address] Yannick Acquisition Consultant NURSE PRACTITIONER 10/08/20 documented as of this encounter
--- OUTSIDE RECORDS SUMMARY | 2024-02-12 03:43 | XMS_ITS | Encounter Summary ---
Author Organization [facility] Address [address] [place] [address]. 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 Cardiac Electrophysiology Procedure Note Holter/Event monitor/MCT report PATIENT NAME: Kimberly Isabel : 1960 DATE OF TESTIN10/14/2020 - 11/12/2020, 21 days and 4 hours TYPE OF MONITOR: Mobile Cardiac Telemetry (MCT) ORDERING PROVIDER: NITISH CUMMINS M.D. INDICATION: Shortness of breath FINDINGS: 1. Baseline rhythm: The baseline rhythm was normal sinus with heart rates ranging between 51 and 130 beats per minute, with average rate of 68 beats per minute. 2. Sinus node function: Sinus node function was normal with no evidence of severe bradycardia. 3. A-V conduction: A-V conduction was normal with no evidence of significant A-V block. There was no pause for more than 3 seconds. 4. Atrial arrhythmias: There were PACs accounting for <1% of total heart beats. Nonsustained atrial runs were noted with duration less than 10 seconds. Atrial fibrillation was not observed. Atrialflutter was not observed. 5. Ventricular arrhythmias: There were PVCs accounting for <1% of total heart beats. Ventriculartachycardia was not observed. 6. Symptoms: The patient reported various symptoms including palpitations, feeling faint and other on multiple occasions with mostly sinus rhythm with heart rate between 60 to 80 bpm. Rarely symptomatic transmission corresponded to sinus rhythm with frequent PVC in bigeminal pattern. SUMMARY: Relatively unremarkable monitor with no sustained atrial or ventricular arrhythmias. There was no significant bradycardia either. Most symptomatic episodes on various occasions corresponded to sinus rhythm with normal heart rate. Consider non heart rhythm related etiology of her symptoms. Jared Harvey MD, [facility] Cardiac Automatic Beading Lathe Operator [place], [place], [facility] documented in this encounter Plan of Treatment Not on file documented as of this encounter Procedures Procedure Name Priority Date/Time Associated Diagnosis Comments EVENT RECORDER (ECG) UP TO 30 DAYS COMPLETE Routine 11/18/2020 7:37 AM CDT Shortness of breath Heart palpitations documented in this encounter Visit Diagnoses Not on filedocumented in this encounter Additional Health Concerns Assessment Noted Time PHQ-9 Depression Total Score: 0 08/11/19 21 2:40 PM CDT documented as of this encounter Care Teams Tax Compliance Representative Relationship Specialty Start Date End Date Anette Gutierrez MD [address] [place] [address] PCP - General INTERNAL MEDICINE 05/22/18 Eri Serna MD [address] [place] [address] ENDOCRINOLOGY 05/22/18 Edilma Chun, [facility]- [address] [place] [address] Anderson Cosmetologist NURSE PRACTITIONER 10/08/20 documented as of this encounter
--- OUTSIDE RECORDS SUMMARY | 2024-02-12 03:43 | XMS_ITS | Encounter Summary ---
Author Organization [facility] Address [address] [place] [address]. [place] [address] [place] [address] Care Team Providers Care Miller Distillery Name Role Phone Junior Gutierrez MD Primary Care Provider [phone] Eri Serna MD Unavailable [phone] Edilma Chun [facility] Unavailable Reason for Visit * Reason Onset Date Comments Appointment Request 10/08/2020 Encounter Details Date Type Department Care Team (Late st Contact Info) Description 10/08/2020 Telephone [facility] ld [address] [place] [address] None, Provider, Appointment Request Social History Tobacco Use Types Packs/Day Years Used Date Smoking Tobacco: Former Smokeless Tobacco: Never Comments:Quit 35 years ago PHQ-2 Answer Date Recorded PHQ-2 Score - If the patient scores above 3, please move on to questions 3-9 0 08/10/2020 Comments Unknown Sex and Gender Information Value Date Recorded Sex Assigned at Not on file 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 No / Unsure 09/20/2020 12:58 PM CDT documented as of this encounter Progress Notes * Karen Middleton RN - 10/08/2020 3:08 PM CDT This note was copied from [facility] phone nurse fax account to show documentation of obtaining records for upcoming apt 10/08 Dr junior Gutierrez referring, , rec???d clinic note and demographics, need holter report from [facility]. Spoke with [facility] office to request the report and any EKG if done. Tls 10/08 rec???d holter mx report. Tls * Karen Middleton RN - 10/08/2020 12:55 PM CDT rec'd [facility] access fax from Dr Gutierrez office requesting cardiology consult for heart fluttering, new DX diabetes mellitus Called pt to discuss appt options. Referral Source: [facility] is PCP and referring Insurance: [employer] Caller: pt Caller Phone Number: Symptoms/Consult for: heart fluttering Request Records-fax to [phone]: rec'd demographics and clinic note reuested the holter report, done at [facility]. Current PCC Patient: No Recent hospitalizations: no Ever seen a car ferrier in the past: no Requested appt timeframe: 1st avail Recent testing/labs Holter mx done about 2 weeks ago at [facility] Appt Date/time: 10/14/20 1pm PHI 5 Provider:Jeannette AYON Covid+Test or Exposure in last 14 days: no MyChart offered: currently enrolled. Letter/WS mailed/NA: no Care Team:updated Notified Dr Gutierrez office of appt date and time. documented in this encounter Plan of Treatment Not on file documented as of this encounter Visit Diagnoses Not on filedocumented in this encounter Additional Health Concerns Assessment Noted Time PHQ-9 Depression Total Score: 0 08/11/19 21 2:40 PM CDT documented as of this encounter Care Teams Miller Distillery Relationship Specialty Start Date End Date Junior Gutierrez MD [address] [address] PCP - General INTERNAL MEDICINE 05/22/18 Eri Serna MD [address] [place] [address] ENDOCRINOLOGY 05/22/18 Edilma Chun, [facility]- [address] [place] [address] [place] Coal Pulverizer Operator NURSE PRACTITIONER 10/08/20 documented as of this encounter
--- OUTSIDE RECORDS SUMMARY | 2024-02-12 03:43 | XMS_ITS | Encounter Summary ---
Author Organization [facility] Address [address] [place] [address]. [place] [address] [place] [address] Care Team Providers Care Apple Packing Header Name Role Phone Unavailable Primary Care Provider Unavailabl e Encounter Details Date Type Department Care Team (Late st Contact Info) Description 05/18/[address] 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 Gender Identity Not on file Sexual Orientation Not on file documented as of this encounter Last Filed Vital Signs Vital Sign Reading Time Taken Comments Blood Pressure 130/64 05/18/2017 11:12 AM CDT Pulse 66 05/18/2017 11:12 AM CDT Temperature - - Respiratory Rate - - Oxygen Saturation - - Inhaled Oxygen Concentration - - Weight 102.1 kg (225 lb) 05/18/2017 11:12 AM CDT Height 162.6 cm (5' 4 ) 05/18/2017 11:12 AM CDT Body Mass Index 38.62 05/18/2017 11:12 AM CDT documented in this encounter Progress Notes * Eri Serna MD - 05/18/2017 11:00 AM CDT History of Present Illness This is a 57-year-old patient with hypothyroidism and nodular goiter who is here for followup. She had radioactive iodine treatment in 1993 and since then, she has been hypothyroid. Patient is currently taking levothyroxine 175 mcg which I had decreased last time from 188 mcg as her TSH was suppressed and she says she is doing well without any problems. 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 She also had a liver biopsy previously which had shown primary biliary cirrhosis, now it also shows fatty liver. Patient says that shehas gained 10 pounds over the last 3 months and she is not sure why this has happened. She does notcomplain of fatigue, constipation or cold intolerance. Patient has thyroid nodules. The dominant nodule in the left lobe was 1.5 cm which was biopsied in 2014, it came back as benign and she does not complain of any change in her thyroid nodules. She does not complain of difficulty swallowing, pain while swallowing or hoarseness of voice. Her last ultrasound in May 2016 showed the nodules were stable and there was no significant change. There is a family history of thyroid cancer in her great grandmother but she has never had any radiation treatment as a young child. Review of Systems Constitutional: no fever and no chills. Cardiovascular: no chest pain and no palpitations. Respiratory: no shortness of breath and no cough. Gastrointestinal: no abdominal pain, no nausea, no constipation, no vomiting and no diarrhea. Genitourinary: no dysuria and no urinary frequency. Active Problems 1. Enlarged thyroid gland (240.9) (E04.9) 2. Fibromyalgia (729.1) (M79.7) 3. Goiter (240.9) (E04.9) 4. Hyperlipidemia (272.4) (E78.5) 5. Hypothyroidism (244.9) (E03.9) 6. Itching (698.9) (L29.9) 7. Primary biliary cirrhosis (571.6) (K74.3) 8. Solitary thyroid nodule (241.0) (E04.1) Past Medical History 1. History of Hypothyroidism Post Radio-iodine Treatment (E932.8) Surgical History 1. History of Section 2. History of Dental Surgery Family History 1. Family history of Colon Cancer (V16.0) 2. Family history of Cancer 3. Family history of Diabetes Mellitus (V18.0) 4. Family history of Heart Disease (V17.49) Social History ?? Never a smoker ?? Never Drank Alcohol Current Meds 1. Levothyroxine Sodium 175 MCG Oral Tablet; TAKE 1 BY MOUTH DAILY; Therapy: 05Jun2016 to (Evaluate:31May2017) Requested for: 05Jun2016; Last Rx:05Jun2016 Ordered Rx By: Eri Serna; Dispense: 90 Days ; #:90 Tablet; Refill: 3; For: Hypothyroidism; ROULA = N; Verified Transmission to [facility] 8215; Last Updated By: Zen Schultz; 06/05/2016 12:59:42 PM 2. Multivitamins TABS; TAKE 1 TABLET DAILY; Therapy: (Recorded:[id number]) to Recorded Dispense: 0 Days ; #: Sufficient Tablet; Refill: 0; For: Health Maintenance; ROULA = N; Record; Last Updated By: Karen Baum; 09/09/2011 12:36:20 PM 3. TraMADol HCl ER 300 MG Oral Tablet Extended Release 24 Hour; TAKE 1 TABLET DAILY; Therapy: [id number] to Recorded Dispense: 0 Days ; #: Sufficient Tablet Extended Release 24 Hour; Refill: 0; ROULA = N; Record; Last Updated By: Connie Yusuf; 12/11/2011 2:06:54 PM 4. Triamterene-HCTZ 37.5-25 MG Oral Capsule; TAKE 1 CAPSULE BY MOUTH DAILY; Therapy: (Recorded:18May2017) to Recorded Dispense: 90 Days ; #:90 Capsule; Refill: 0; ROULA = N; Record; Last Updated By: Maria Ines Stroud; 05/18/2017 11:16:30 AM 5. Ursodiol 500 MG Oral Tablet; TAKE 1 TABLET 3 TIMES DAILY WITH MEALS; Therapy: (Recorded:11Dec2011) to Recorded Dispense: 0 Days ; #: Sufficient Tablet; Refill: 0; For: Primary biliary cirrhosis; ROULA = N; Record; Last Updated By: Connie Yusuf; 12/11/2011 2:29:30 PM 6. Vitamin D3 2000 UNIT Oral Tablet; Take 1 tablet daily; Therapy: (Recorded:19Feb2014) to Recorded Dispense: 0 Days ; #: Sufficient Tablet; Refill: 0; For: Health Maintenance; ROULA = N; Record; Last Updated By: Erendira Gunn; 02/19/2014 12:07:24 PM 7. ZyrTEC Allergy 10 MG Oral Tablet; TAKE 1 TABLET AT BEDTIME; Therapy: (Recorded:19Dec2012) to Recorded Dispense: 0 Days ; #: Sufficient Tablet; Refill: 0; For: Itching; ROULA = N; Record; Last Updated By:Connie Yusuf; 12/19/2012 3:00:55 PM Allergies 1. No Known Drug Allergies Recorded By: Karen Baum; 09/06/2011 8:34:12 AM Vitals Recorded: 18May2017 11:12AM Heart Rate 66 Systolic 130 Diastolic 64 O2 Saturation 99 Height 5 ft 4 in Weight 225 lb BMI Calculated 38.62 BSA Calculated 2.06 Physical Exam Constitutional General appearance: No acute distress, well appearing and well nourished. Eyes Conjunctiva and lids: No swelling, erythema or discharge. Ears, Nose, Mouth, and Throat External inspection of ears and nose: Normal. Pulmonary Respiratory effort: No increased work of breathing or signs of respiratory distress. Auscultation of lungs: Clear to auscultation. Cardiovascular Auscultation of heart: Normal rate and rhythm, normal S1 and S2, without murmurs. Musculoskeletal Gait and station: Normal. Skin Skin and subcutaneous tissue: Normal without rashes or lesions. Psychiatric Orientation to person, place, and time: Normal. Mood and affect: Normal. Thyroid is slightly enlarged. Nodules are palpable, not fixed, nontender bilaterally. Assessment 1. Hypothyroidism (244.9) (E03.9) 2. Solitary thyroid nodule (241.0) (E04.1) Plan 1. Call if: You begin to have tremors or your hands become shaky.; Status:Complete; Done: [id number] Ordered; For:Hypothyroidism; Ordered By:Eri Serna; 2. Call if: You gain or lose over 10 pounds without a change in your diet.; Status:Complete; Done: 18May2017 Ordered; For:Hypothyroidism; Ordered By:Eri Serna; 3. Call if: You have symptoms of anxiety.; Status:Complete; Done: 18May2017 Ordered; For:Hypothyroidism; Ordered By:Eri Serna; Discussion/Summary This is a 57-year-old patient with hypothyroidism who is not doing very well on levothyroxine 175 mcg. She has gained weight. I had decreased her dose the last time. She did not get blood work done this time so I need to check her TSH and free T4 and based on the numbers, we will decide if the doseneeds to be increased mostly because she has gained weight. With regards to thyroid nodules, on exam today, there is no significant change in the thyroid nodules and hence, I will not plan an ultrasound this time. The last ultrasound was done in 2013. I will see her back in 1 year to examine her neck and then see if I need to do another ultrasound. The lastbiopsy was in 2014 which came back as benign. I will see her back in 1 year with blood work which will be TSH and free T4. Signatures Electronically signed by : Eri Serna M.D.; May 21 2017 9:02AM FOOD AND NUTRITION TEACHER (Author) documented in this encounter Plan of Treatment Not on file documented as of this encounter Visit Diagnoses Not on filedocumented in this encounter
--- OUTSIDE RECORDS SUMMARY | 2024-02-12 03:43 | XMS_ITS | Encounter Summary ---
Author Organization [facility] Address [address] [place] [address]. [place] [address] [place] [address] Care Team Providers Care Photography Sales Associate Name Role Phone Anette Gutierrez MD Primary Care Provider [phone] Eri Serna MD Unavailable [phone] Encounter Details Date Type Department Care Team (Latest Contact Info) Description 08/10/2020 Travel Social History Tobacco Use Types Packs/Day Years Used Date Smoking Tobacco: Former Smokeless Tobacco: Never Comments:Quit 35 years ago PHQ-2 Answer Date Recorded PHQ-2 Score - If the patient scores above 3, please move on to questions 3-9 0 08/10/2020 Comments Unknown Sex and Gender Information Value Date Recorded Sex Assigned at Not on file 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
--- OUTSIDE RECORDS SUMMARY | 2024-02-12 03:43 | XMS_ITS | Encounter Summary ---
Author Organization [facility] Address [address] [place] [address]. [place] [address] [place] [address] Care Team Providers Care Hydraulic Governor Assembler Name Role Phone Anette Gutierrez MD Primary Care Provider [phone] Eri Serna MD Unavailable [phone] Edilma Chun [facility] Unavailable Reason for Visit * Reason Onset Date Comments Schedule Test 10/14/2020 Encounter Details Date Type Department Care Team ([facility] st Contact Info) Description 10/14/2020 Telephone [facility] [address] [place] [address] Edilma Chun [facility] [address] [place] [address] Schedule Test Social History Tobacco Use Types Packs/Day Years [...] on file 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 No / Unsure 10/14/2020 12:49 PM CDT documented as of this encounter Progress Notes * Luiza Alvarez - 10/15/2020 3:30 PM CDT Pt called and is agreeable to the apt for the stress echo (see below) * Luiza Alvarez - 10/15/2020 12:17 PM CDT Attempted to call pt to schedule stress echo at [facility]. Left msg to return call. Tentatively scheduledfor 10/21/20 at 2:00 PM (this is the latest that they do testing for this.) REFERRAL/PCP: Dr. Gutierrez INS: [employer] PPO APPT PROV/DATE/TIME: 12/06/20 at 2:30 PM [place] Edilma Ann TESTING NEEDED/SCHEDULED: Stress Echo - [facility] - 10/21/20 at 2:00 PM STAFF MSG SENT: Yes COVID+TEST/EXPOSURE IN LAST 14 DAYS: no RECORDS NEEDED: no MYCHART OFFERED: has LETTER SENT: to MyChart CARE TEAM: Dr. Sauceda Patient expresses understanding, questions answered. documented in this encounter Plan of Treatment Not on file documented as of this encounter Visit Diagnoses Not on filedocumented in this encounter Additional Health Concerns Assessment Noted Time PHQ-9 Depression Total Score: 0 08/11/19 21 2:40 PM CDT documented as of this encounter Care Teams Hydraulic Governor Assembler Relationship Specialty Start Date End Date Anette Gutierrez MD [address] [address] PCP - General INTERNAL MEDICINE 05/22/18 Eri Serna MD [address] [place] [address] ENDOCRINOLOGY 05/22/18 Edilma Chun, [facility]- [address] [place] [address] Yannick Mortar Man NURSE PRACTITIONER 10/08/20 documented as of this encounter
--- OUTSIDE RECORDS SUMMARY | 2024-02-12 03:43 | XMS_ITS | Encounter Summary ---
Author Organization [facility] Address [address] [place] [address]. [place] [address] [place] [address] Care Team Providers Care Systems Software Specialist Name Role Phone Susan Gutierrez MD Primary Care Provider [phone] Eri Serna MD Unavailable [phone] Reason for Visit * Reason Comments Follow Up * Consultation (Routine) - Closed Specialty Diagnoses / Procedures Referred By Charisse t Referred To Contact ENDOCRINOLOGY Diagnoses follow up yearly Procedures FOLLOW UP Eri Serna MD [address] [place] [address] [place] [address] Phone: tel: fax: Eri Serna MD [facility] [facility] [address] Phone: tel: fax: Referral ID Status Reason Start Date Expiration Date Visits Re quested Visits Authorized [id number] Closed 05/22/2018 05/23/2019 5 5 Encounter Details Date Type Department Care Team (Late st Contact Info) Description 08/07/2018 11:20 AM CDT Office Visit [facility] Diabetes and Endocrinology - [place] [address] [place] [phone] Eri Serna MD [facility] [facility] 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 Gender Identity Not on file Sexual Orientation Not on file documented as of this encounter Last Filed Vital Signs Vital Sign Reading Time Taken Comments Blood Pressure 128/68 08/07/2018 11:35 AM CDT Pulse 62 08/07/2018 11:35 AM CDT Temperature - - Respiratory Rate - - Oxygen Saturation 98% 08/07/2018 11:35 AM CDT Inhaled Oxygen Concentration - - Weight 103.4 kg (228 lb) 08/07/2018 11:35 AM CDT Height 162.6 cm (5' 4 ) 08/07/2018 11:35 AM CDT Body Mass Index 39.14 08/07/2018 11:35 AM CDT documented in this encounter Progress Notes * Eri Serna MD - 08/07/2018 11:20 AM CDT Reason for Visit: Follow up History of Present Illness: HPI This is a 58-year-old patient with hypothyroidism and nodular goiter who is here for followup. She had radioactive iodine treatment in 1993 and since then, she has been hypothyroid. Patient has been taking her thyroid hormone regularly on empty stomach. Some days she eats within half an hour most of the days she takes it on empty stomach. She is currently taking 175 mcg 1 tabletonce a day and she does complain of some palpitations and sweating. Patient has thyroid nodules. The dominant nodule [...] any radiation treatment as a young child. ROS: ROS No fevers or chills . No visual disturbances or double vision No chest pain or palpitations. No shortness of breath, cough, No abdominal pain, diarrhea, constipation. No urinary frequency, nocturia. Medications: Current Outpatient Medications: ??? cetirizine (ZYRTEC ALLERGY) 10 MG tablet, Take 1 tablet by mouth., Disp: , Rfl: ??? Cholecalciferol (VITAMIN D3) 2000 units Tab, Take 1 tablet by mouth daily., Disp: , Rfl: ??? clobetasol 0.05 % cream, Apply topically 2 (two) times daily., Disp: , Rfl: ??? desonide 0.05 % cream, Apply topically 2 (two) times daily., Disp: , Rfl: ??? Levothyroxine Sodium 175 MCG Cap, Take 175 mcg by mouth as needed. She will take 175 mcg 1 tablet once a day every day except for 1 day/week she will take half a tablet this will average to [id number] mcg/day, Disp: 30 capsule, Rfl: 3 ??? multivitamin tablet, Take 1 tablet by mouth daily., Disp: , Rfl: ??? traMADol ER 300 MG TABLET SR 24 HR 24 hr tablet, Take 1 tablet by mouth daily., Disp: , Rfl: 0 ??? triamterene-hydrochlorothiazide 37.5-25 MG tablet, , Disp: , Rfl: ??? ursodiol 500 MG tablet, TAKE 1 TABLET BY MOUTH THREE TIMES DAILY WITH MEALS, Disp: , Rfl: 0 Not on File No past medical history on file. No past surgical history on file. Social History Socioeconomic History ??? Marital status: Spouse name: Not on file ??? Number of children: Not on file ??? Years of education: Not on file ??? Highest education level: Not on file Occupational History ??? Not on file Social Needs ??? Financial resource strain: Not on file ??? Food insecurity: Worry: Not on file Inability: Not on file ??? Transportation needs: Medical: Not on file Non-medical: Not on file Tobacco Use ??? Smoking status: Former Smoker ??? Smokeless tobacco: Never Used ??? Tobacco comment: Quit 35 years ago Substance and Sexual Activity ??? Alcohol use: Not on file ??? Drug use: Not on file ??? Sexual activity: Not on file Lifestyle ??? Physical activity: Days per week: Not on file Minutes per session: Not on file ??? Stress: Not on file Relationships ??? Social connections: Talks on phone: Not on file Gets together: Not on file Attends taoist service: Not on file Active member of club or organization: Not on file Attends meetings of clubs or organizations: Not on file Relationship status: Not on file ??? Intimate partner violence: Fear of current or ex partner: Not on file Emotionally abused: Not on file Physically abused: Not on file Forced sexual activity: Not on file Other Topics Concern ??? Not on file Social History Narrative ??? Not on file No family history on file. No family status information on file. <MGPEENDOLINK> General: No apparent distress. Well nourished. Thyroid mildly enlarged with nodules about the similar size as before. Chest: Trachea midline. No crackles wheeze heard on auscultation. CVS: Regular rhythm, normal rate. No murmurs heard. No pitting edema. Abdomen: Obese, non-tender , non-distended. No palpable masses. Skin: No lipo-dystrophy or bruises at the injection site. Nervous system: Moves all 4 extremities. Foot: Not done Alert, oriented times 3, good eye contact, appropriate mood. Filed Vitals: 08/07/18 1135 BP: 128/68 Pulse: 62 SpO2: 98% Weight: 103.4 kg (228 lb) Height: 5' 4 (1.626 m) SODIUM (mmol/L) Date Value 02/19/2014 138 POTASSIUM (mmol/L) Date Value 02/19/2014 4.3 CHLORIDE (mmol/L) Date Value 02/19/2014 103 CO2 (mmol/L) Date Value 02/19/2014 24 ANION GAP (no units) Date Value 02/19/2014 11 BUN (mg/dL) Date Value 02/19/2014 9 CREATININE (mg/dL) Date Value 02/19/2014 0.8 eGFR Non-Afr. Amer. (mL/min/1.73sq.m) Date Value 02/19/2014 75 eGFR Afr. Amer. (mL/min/1.73sq.m) Date Value 02/19/2014 91 GLUCOSE (mg/dL) Date Value 02/19/2014 94 CALCIUM (mg/dL) Date Value 02/19/2014 9.2 TOTAL PROTEIN (g/dL) Date Value 02/19/2014 6.6 ALBUMIN (g/dL) Date Value 02/19/2014 3.8 TOTAL BILIRUBIN (mg/dL) Date Value 02/19/2014 0.7 ALK PHOS (U/L) Date Value 02/19/2014 188 AST (U/L) Date Value 02/19/2014 19 ALT (U/L) Date Value 02/19/2014 20 HGB A1C (no units) Date Value 12/11/2011 5.9 No results found for: MICROALBUMINLASTLABX(UAALB:2) Diagnoses/Impression: 1. Acquired hypothyroidism THYROID STIM HORMONE, TSH THYROXINE, FREE (FT4) Levothyroxine Sodium 175 MCG Cap Recommendations and Plan: 58-year-old patient with hypothyroidism and nodular goiter is here for follow-up. With regards to hypothyroidism patient is thyrotoxic with TSH of 0.127 and free T4 of 2.27. She is having some symptoms of thyrotoxicosis and hence I will decrease her dose from 175 mcg once a day to165 mcg once a day and she will do this by taking 6.5 pills/week instead of 7. I will repeat TSH and free T4 in 6 to 8 weeks. Have given her a lab slip for this. With regards to goiter I do not feel there has been a significant change in the nodules on physicalexam and will skip the ultrasound this year. I will plan to see her back in 1 year for follow-up with TSH and free T4 ERI SERNA Referring Provider: Eri Serna PCP: SUSAN GUTIERREZ MD documented in this encounter Plan of Treatment Not on file documented as of this encounter Visit Diagnoses Diagnosis Acquired hypothyroidism- Primary Unspecified hypothyroidism documented in this encounter Care Teams Systems Software Specialist Relationship Specialty Start Date End Date Susan Gutierrez MD [address] [place] [id number] PCP - General INTERNAL MEDICINE 05/22/18 Eri Serna MD [address] [place] [address] ENDOCRINOLOGY 05/22/18 documented as of this encounter
--- OUTSIDE RECORDS SUMMARY | 2024-02-12 03:43 | XMS_ITS | Encounter Summary ---
Author Organization [facility] Address [address] [place] [address]. [place] [address] [place] [address] Care Team Providers Care Sustainability Officer Name Role Phone Anette Gutierrez MD Primary Care Provider [phone] Eri Serna MD Unavailable [phone] Edilma Chun [facility] Unavailable Reason for Visit * Imaging (Routine) - Closed Specialty Diagnoses / Procedures Referred By Charisse schulz Referred To Contact Diagnoses Shortness of breath Heart palpitations Procedures CLINIC - OUTPATIENT EVENT RECORDER (ECG) UP TO 30 DAYS COMPLETE (Holter) Edilma Chun FNPTRACE [address] [facility] [place] [place] [address] Phone: tel: fax: Edilma Chun [facility] [address] [facility] [place] [place] [address] Phone: tel: fax: Referral ID Status Reason Start Date Expiration Date Visits Re quested Visits Authorized [id number] Closed 10/14/2020 11/13/2021 1 1 Encounter Details Date Type Department Care Team (Late st Contact Info) Description 10/14/2020 2:00 PM CDT [facility]phone [place] [facility] [address] [place] [address] Edilma Chun FNP-BC [address] [place] [address] Social History Tobacco Use Types Packs/Day Years [...] on file 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 ??There was no significant bradycardia either. ??Most symptomatic episodes on various occasions corresponded to sinus rhythm with normal heart rate. ??Consider non heart rhythm related etiology of her symptoms. documented in this encounter Plan of Treatment Not on file documented as of this encounter Procedures Procedure Name Priority Date/Time Associated Diagnosis Comments EVENT RECORDER (ECG) UP TO 30 DAYS COMPLETE Routine 11/18/2020 7:37 AM CDT Shortness of breath Heart palpitations documented in this encounter Results * CLINIC - OUTPATIENT EVENT RECORDER (ECG) UP TO 30 DAYS COMPLETE (Holter) (11/18/2020 7:37 AM CDT) [facility] - 11/18/2020 7:37 AM CDT Jared Harvey MD ? 11/18/2020 ??3:13 PM Cardiac Electrophysiology Procedure Note Holter/Event monitor/MCT report PATIENT NAME: Kimberly Isabel : 1960 DATE OF TESTIN10/14/2020 - 11/12/2020, 21 days and 4 hours TYPE OF MONITOR: Mobile Cardiac Telemetry (MCT) ORDERING PROVIDER: NITISH CUMMINS M.D. INDICATION: Shortness of breath FINDINGS: ?? 1. Baseline rhythm: The baseline rhythm was normal sinus with heart rates ranging between 51 and 130 beats per minute, with average rate of 68 beats per minute. 2. Sinus node function: ??Sinus node function was normal with no evidence of severe bradycardia. 3. A-V conduction: ??A-V conduction was normal with no evidence of significant A-V block. ??There was no pause for more than 3 seconds. 4. Atrial arrhythmias: There were PACs accounting for <1% of total heart beats. ??Nonsustained atrial runs were noted with duration less than 10 seconds. ??Atrial fibrillation was not observed. ??Atrial flutter was not observed. 5. Ventricular arrhythmias: ??There were PVCs accounting for <1% of total heart beats. ??Ventricular tachycardia was not observed. 6. Symptoms: ??The patient reported various symptoms including palpitations, feeling faint and other on multiple occasions with mostly sinus rhythm with heart rate between 60 to 80 bpm. ??Rarely symptomatic transmission corresponded to sinus rhythm with frequent PVC in bigeminal pattern. SUMMARY: Relatively unremarkable monitor with no sustained atrial or ventricular arrhythmias. ??There was no significant bradycardia either. ??Most symptomatic episodes on various occasions corresponded to sinus rhythm with normal heart rate. ??Consider non heart rhythm related etiology of her symptoms. Jared Harvey MD, [facility] Cardiac Sub Master [place], [place], [place] Edilma Machado PANEL MACHINE SETTER-BC CV VASCULAR O RDERABLES Final Result [facility] documented in this encounter Visit Diagnoses Diagnosis Shortness of breath Heart palpitations Palpitations documented in this encounter Additional Health Concerns Assessment Noted Time PHQ-9 Depression Total Score: 0 08/11/19 21 2:40 PM CDT documented as of this encounter Care Teams Sustainability Officer Relationship Specialty Start Date End Date Anette Gutierrez MD [address] [place] [address] PCP - General INTERNAL MEDICINE 05/22/18 Eri Serna MD [address] [place] [address] ENDOCRINOLOGY 05/22/18 Edilma Chun, [facility]- [address] [place] [address] [place] Lead Network Engineer NURSE PRACTITIONER 10/08/20 documented as of this encounter
--- OUTSIDE RECORDS SUMMARY | 2024-02-12 03:43 | XMS_ITS | Encounter Summary ---
Author Organization [facility] Address [address] [place] [address]. [place] [address] [place] [address] Care Team Providers Care Psych Sales Specialist Name Role Phone Anette Gutierrez MD Primary Care Provider [phone] Eri Serna MD Unavailable [phone] Encounter Details Date Type Department Care Team (Late st Contact Info) Description 07/16/2018 Orders Only [facility] Medical Group Diabetes and Endocrinology - [address] [phone] Eri Serna MD [address] [place] [address] Social History Tobacco Use Types Packs/Day Years Used Date Smoking Tobacco: Never Assessed Comments Unknown Sex and Gender Information Value Date Recorded Sex Assigned at Not on file 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 Gender Identity Not on file Sexual Orientation Not on file documented as of this encounter Progress Notes * Maria Ines Stroud MA - 07/16/2018 1:29 PM CDT Lab orders mailed to patient documented in this encounter Plan of Treatment Not on file documented as of this encounter Visit Diagnoses Diagnosis Hypothyroidism- Primary Unspecified hypothyroidism documented in this encounter Care Teams Psych Sales Specialist Relationship Specialty Start Date End Date Anette Gutierrez MD [address] [address] PCP - General INTERNAL MEDICINE 05/22/18 Eri Serna MD [address] [place] [address] ENDOCRINOLOGY 05/22/18 documented as of this encounter
--- OUTSIDE RECORDS SUMMARY | 2024-02-12 03:43 | XMS_ITS | Encounter Summary ---
Author Organization [facility] Address [address] [place] [address]. [place] [address] [place] [address] Care Team Providers Care Building Equipment Inspector Name Role Phone Susan Gutierrez MD Primary Care Provider [phone] Eri Serna MD Unavailable [phone] Reason for Referral * Imaging (Routine) - Closed Specialty Diagnoses / Procedures Referred By Charisse schulz Referred To Contact RADIOLOGY Diagnoses Non-toxic multinodular goiter Procedures US THYROID Eri Serna MD [address] [place] [address] Phone: tel: fax: Referral ID Status Reason Start Date Expiration Date Visits Re quested Visits Authorized [id number] Closed 08/10/2020 09/09/2021 1 1 Reason for Visit * Reason Comments Hypothyroidism Encounter Details Date Type Department Care Team (Late st Contact Info) Description 08/10/2020 2:20 PM CDT Office Visit [facility] Diabetes and Endocrinology - [address] [phone] Eri Serna MD [address] [place] [address] Hypothyroidism Social History Tobacco Use Types Packs/Day Years Used Date Smoking Tobacco: Former Smokeless Tobacco: Never Comments:Quit 35 years ago PHQ-2 Answer Date Recorded PHQ-2 Score - If the patient scores above 3, please move on to questions 3-9 0 08/10/2020 Comments Unknown Sex and Gender Information Value Date Recorded Sex Assigned at Not on file 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 No / Unsure 08/10/2020 12:39 AM CDT documented as of this encounter Last Filed Vital Signs Vital Sign Reading Time Taken Comments Blood Pressure 118/64 08/10/2020 2:39 PM CDT Pulse 65 08/10/2020 2:39 PM CDT Temperature 36.4 ??C (97.6 ??F) 08/10/2020 2:39 PM CD T Respiratory Rate - - Oxygen Saturation 97% 08/10/2020 2:39 PM CDT Inhaled Oxygen Concentration - - Weight 97.2 kg (214 lb 3.2 oz) 08/10/2020 2:39 P M CDT Height 162.6 cm (5' 4 ) 08/10/2020 2:39 PM CDT Body Mass Index 36.77 08/10/2020 2:39 PM CDT documented in this encounter Progress Notes * Eri Serna MD - 08/10/2020 2:20 PM CDT Reason for Visit: Hypothyroidism History of Present Illness: HPI 60-year-old patient with hypothyroidism and nodular goiter Patient is currently taking levothyroxine 175 mcg 1 tablet once a day for 6-1/2 days. I had decreased the dose in July 2018 when her TSH was suppressed. Since the last time she was here she has lost another 8 pounds and she is starting to feel like she has excessive sweating and palpitations. She has not had blood work done today. With regards to thyroid nodules patient has very small thyroid nodules on her right lobe left lobe and isthmus and most of them are subcentimeter. Last ultrasound was in 2016 and it had not increasedin size compared to ultrasound in 2014. There is no family history of thyroid cancer no personal history of radiation treatment. Patient does not complain of difficulty swallowing, painful swallowing, hoarseness of voice or change in voice. ROS: ROS No fevers or chills . No visual disturbances or double vision No chest pain or palpitations. No shortness of breath, cough, No abdominal pain, diarrhea, constipation. No urinary frequency, nocturia. Medications: Current Outpatient Medications: ??? atorvastatin 10 MG tablet, Take 10 mg by mouth daily., Disp: , Rfl: ??? cetirizine (ZYRTEC ALLERGY) 10 MG tablet, Take 1 tablet by mouth., Disp: , Rfl: ??? Cholecalciferol (VITAMIN D3) 2000 units Tab, Take 1 tablet by mouth daily., Disp: , Rfl: ??? clobetasol 0.05 % cream, Apply topically 2 (two) times daily., Disp: , Rfl: ??? desonide 0.05 % cream, Apply topically 2 (two) times daily., Disp: , Rfl: ??? levothyroxine 175 MCG tablet, Take 1 tablet (175 mcg total) by mouth daily., Disp: 90 tablet, Rfl: 3 ??? multivitamin tablet, Take 1 [...] file Occupational History ??? Not on file Tobacco Use ??? Smoking status: Former Smoker ??? Smokeless tobacco: Never Used ??? Tobacco comment: Quit 35 years ago Substance and Sexual Activity ??? Alcohol use: Not on file ??? Drug use: Not on file ??? Sexual activity: Not on file Other Topics Concern ??? Not on file Social History Narrative ??? Not on file Social Determinants of Health Financial Resource Strain: ??? Difficulty of Paying Living Expenses: Food Insecurity: ??? Worried About Running Out of Food in the Last Year: ??? Ran Out of Food in the Last Year: Transportation Needs: ??? Lack of Transportation (Medical): ??? Lack of Transportation (Non-Medical): Physical Activity: ??? Days of Exercise per Week: ??? Minutes of Exercise per Session: Stress: ??? Feeling of Stress : Social Connections: ??? Frequency of Communication with Friends and Family: ??? Frequency of Social Gatherings with Friends and Family: ??? Attends Taoism Services: ??? Active Member of Clubs or Organizations: ??? Attends Club or Organization Meetings: ??? Marital Status: Intimate Partner Violence: ??? Fear of Current or Ex-Partner: ??? Emotionally Abused: ??? Physically Abused: ??? Sexually Abused: No family history on file. No family status information on file. PHYSICAL EXAM General: No apparent distress. Well nourished. Thyroid enlarged but no significant increase in size of nodules. Thyroid definitely feels rubbery Chest: Trachea midline. No crackles wheeze heard on auscultation. CVS: Regular rhythm, normal rate. No murmurs heard. No pitting edema. Abdomen: Obese, non-tender , non-distended. No palpable masses. Skin: No lipo-dystrophy . Nervous system: Moves all 4 extremities. Foot: Normal Alert, oriented times 3, good eye contact, appropriate mood. Filed Vitals: 08/10/20 1439 BP: 118/64 Pulse: 65 Temp: 97.6 ??F (36.4 ??C) TempSrc: Skin SpO2: 97% Weight: 97.2 kg (214 lb 3.2 oz) Height: 5' 4 (1.626 m) SODIUM Date Value Ref Range Status 02/19/2014 138 135 - 147 mmol/L Final POTASSIUM Date Value Ref Range Status 02/19/2014 4.3 3.5 - 5.0 mmol/L Final CHLORIDE S/P/B Date Value Ref Range Status 02/19/2014 103 98 - 107 mmol/L Final CO2 Date Value Ref Range Status 02/19/2014 24 22 - 29 mmol/L Final ANION GAP Date Value Ref Range Status 02/19/2014 11 Final BUN Date Value Ref Range Status 02/19/2014 9 (L) 10 - 20 mg/dL Final CREATININE S/P/B Date Value Ref Range Status 02/19/2014 0.8 0.6 - 1.1 mg/dL Final eGFR Non-Afr. Amer. Date Value Ref Range Status 02/19/2014 75 >60 mL/min/1.73sq.m Final eGFR Afr. Amer. Date Value Ref Range Status 02/19/2014 91 >60 mL/min/1.73sq.m Final GLUCOSE Date Value Ref Range Status 02/19/2014 94 70 - 109 mg/dL Final CALCIUM Date Value Ref Range Status 02/19/2014 9.2 8.4 - 10.2 mg/dL Final TOTAL PROTEIN S/P/B Date Value Ref Range Status 02/19/2014 6.6 6.0 - 8.3 g/dL Final ALBUMIN S/P/B Date Value Ref Range Status 02/19/2014 3.8 3.4 - 4.9 g/dL Final BILIRUBIN TOTAL S/P/B Date Value Ref Range Status 02/19/2014 0.7 0.2 - 1.2 mg/dL Final ALKALINE PHOSPHATASE S/P/B Date Value Ref Range Status 02/19/2014 188 (H) 41 - 108 U/L Final AST Date Value Ref Range Status 02/19/2014 19 5 - 35 U/L Final ALT Date Value Ref Range Status 02/19/2014 20 0 - 55 U/L Final HGB A1C Date Value Ref Range Status 12/11/2011 5.9 Final No results found for: MICROALBUMINLASTLABX(UAALB:2) Diagnoses/Impression: 1. Acquired hypothyroidism 2. Non-toxic multinodular goiter US THYROID Recommendations and Plan: 60-year-old patient with hypothyroidism and goiter is here for follow-up. With regards to hypothyroidism she is taking her medicines regularly which is levothyroxine 175 mcg6-1/2 tablets a week. She has lost weight and she is having some symptoms of thyrotoxicosis. I needto see her blood work before I decide if her dose needs to be changed. She will get her TSH and free T4 done and based on the results of let her know if the dose needs to be decreased. At that time she also let me know how many tablets of 175 mcg she has left at home so I can decide if I need to adjust this medicine or switch her to a different medicine with a lower dose. Patient has goiter with a 4 mm nodule in the right lobe, 5 and a 9 mm in the left lobe and 8 mm in the isthmus and her last ultrasound was in 2017. An ultrasound of the thyroid has been ordered for follow-up since it has been 4 years. I will get back to her once I have the results of this I will see her back for follow-up appointment 12 months with TSH and free T4 ERI SERNA Referring Provider: No ref. provider found PCP: SUSAN GUTIERREZ MD documented in this encounter Plan of Treatment Not on file documented as of this encounter Results * US THYROID (09/20/2020 1:21 PM CDT) Anatomical Region Laterality Modality Neck Ultrasound 09/24/2020 2:40 PM CDT Impressions 09/24/2020 2:49 PM CDT Impression: Slightly diminutive and echogenic gland, which may reflect chronic Jeana's thyroiditis, although not specific. Several benign-appearing nodules as above. No definite follow-up is required based on TI-RADS ACR guidelines, although follow- up in 2-3 years may be considered if the patient has risk factors. ACR TI-RADS recommendations: Ti-Rad 5 (greater than or equal to 7 points) - FNA if greater than or equal to 1 cm, follow-up if 0.5-0.9 cm every year for 5 years Ti-Rad 4 (4-6 points) - FNA if greater than or equal to 1.5cm, follow-up if 1- 1.4 cm in 1, 2, 3 and 5 years Ti-Rad 3 (3 points) - FNA if greater than or equal to 2.5cm, follow-up if 1.5- 2.4 cm in 1, 3 and 5 years Ti-Rad 2 (2 points) and TR1, benign (0 points) - No FNA or follow-up * ACR TI-RADS recommends no more than two nodules with the highest ACR TI-RADS total point should be biopsied and no more than four nodules should be followed. ACR TI-RADS (Thyroid Imaging and Reporting Data System) is a structured system for interpreting and reporting thyroid imaging studies with management guidelines. https://www.acr.org/Clinical-Resources/Cksezypai-pqs-Drfa-Systems/TI-RADS Referred By: ERI SERNA Interpreted By: Dominic Mcelroy MD, 09/24/2020 2:40 PM Narrative 09/24/2020 2:49 PM CDT Examination: US THYROID Exam Date/Time: 09/20/2020 1:02 PM Clinical History: Follow-up thyroid nodules Comparison: 05/29/2016 Technique: Grayscale and color flow ultrasound examination of the thyroid gland was performed. Findings: Right lobe: 3.65 cm (L) X 1.17 cm (W) X 1.14 cm (H) in dimension. The thyroid is diminutive and somewhat echogenic. Probable colloid nodule is noted below. Left lobe: 4.13 cm (L) X 1.14 cm (W) X 1.58 cm (H) in dimension. There is a simple 1 cm anechoic cyst along the anterior thyroid surface, unchanged. Additional mostly anechoic nodule in the anterior inferior left thyroid has small internal reflectors with ringdown artifact, consistent with colloid, and shows perhaps minimal growth of about 2 mm in the interval since 2017. This is consistent with benign colloid nodule. Isthmus: 1.8 mm in thickness (AP). Cervical lymph nodes: No cervical adenopathy seen. Nodule 1: Right, Inferior, 0.9 x 0.4 x 0.7 cm, Cystic or almost completely cystic - 0 points, anechoic but with some central hyperechoic material-0 points, [id number]-asws-mnbe - 0 points, Smooth - 0 points, None or large comet-tail artifact - 0 points. Probably best categorized as TI-RADS 1 given that is not completely anechoic. This is essentially unchanged since 2017, almost certainly representing a benign colloid nodule. Procedure Note Dominic Mcelroy MD - 09/24/2020 Examination: US THYROID Exam Date/Time: 09/20/2020 1:02 PM Clinical History: Follow-up thyroid nodules Comparison: 05/29/2016 Technique: Grayscale and color flow ultrasound examination of the thyroidgland was performed. Findings: Right lobe: 3.65 cm (L) X 1.17 cm (W) X 1.14 cm (H) in dimension. Thethyroid is diminutive and somewhat echogenic. Probable colloid nodule isnoted below. Left lobe: 4.13 cm (L) X 1.14 cm (W) X 1.58 cm (H) in dimension. There leonarda simple 1 cm anechoic cyst along the anterior thyroid surface, unchanged.Additional mostly anechoic nodule in the anterior inferior left thyroidhas small internal reflectors with ringdown artifact, consistent withcolloid, and shows perhaps minimal growth of about 2 mm in the intervalsince 2017. This is consistent with benign colloid nodule. Isthmus: 1.8 mm in thickness (AP). Cervical lymph nodes: No cervical adenopathy seen. Nodule 1: Right, Inferior, 0.9 x 0.4 x 0.7 cm, Cystic or almost completelycystic - 0 points, anechoic but with some central hyperechoic material-0points, [id number]-ycqi-mtbd - 0 points, Smooth - 0 points, None or largecomet-tail artifact - 0 points. Probably best categorized as TI-RADS 1 given that is not completelyanechoic. This is essentially unchanged since 2017, almost certainlyrepresenting a benign colloid nodule. Impression: Slightly diminutive and echogenic gland, which may reflect chronicHashimoto's thyroiditis, although not specific. Several benign-appearingnodules as above. No definite follow-up is required based on TI-RADS ACRguidelines, although follow- up in 2-3 years may be considered if thepatient has risk factors. ACR TI-RADS recommendations: Ti-Rad 5 (greater than or equal to 7 points) - FNA if greater than orequal to 1 cm, follow-up if 0.5-0.9 cm every year for 5 years Ti-Rad 4 (4-6 points) - FNA if greater than or equal to 1.5cm, follow-upif 1-1.4 cm in 1, 2, 3 and 5 years Ti-Rad 3 (3 points) - FNA if greater than or equal to 2.5cm, follow-up if1.5-2.4 cm in 1, 3 and 5 years Ti-Rad 2 (2 points) and TR1, benign (0 points) - No FNA or follow-up * ACR TI-RADS recommends no more than two nodules with the highest ACRTI-RADS total point should be biopsied and no more than four nodulesshould be followed. ACR TI-RADS (Thyroid Imaging and Reporting Data System) is a structuredsystem for interpreting and reporting thyroid imaging studies withmanagement guidelines. https://www.acr.org/Clinical-Resources/Zcilanvaz-pan-Tqcj-Systems/TI-RADS Referred By: ERI SERNA Interpreted By: Dominic Mcelroy MD, 09/24/2020 2:40 PM us Eri Serna MD ULTRASOUND Final Re sult documented in this encounter Visit Diagnoses Diagnosis Acquired hypothyroidism- Primary Unspecified hypothyroidism Non-toxic multinodular goiter Nontoxic multinodular goiter Non-toxic multinodular goiter Nontoxic multinodular goiter documented in this encounter Additional Health Concerns Assessment Noted Time PHQ-9 Depression Total Score: 0 08/11/19 21 2:40 PM CDT documented as of this encounter Care Teams Building Equipment Inspector Relationship Specialty Start Date End Date Susan Gutierrez MD [address] [place] [address] PCP - General INTERNAL MEDICINE 05/22/18 Eri Serna MD [address] [place] [address] ENDOCRINOLOGY 05/22/18 documented as of this encounter
--- OUTSIDE RECORDS SUMMARY | 2024-02-12 03:43 | XMS_ITS | Encounter Summary ---
Author Organization [facility] Address [address] [place] [address]. 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
--- OUTSIDE RECORDS SUMMARY | 2024-02-12 03:43 | XMS_ITS | Clinical Summary ---
Author Organization [facility] Address [address] [place] [address]. [place] [address] [place] [address] Care Team Providers Care Private Branch Exchange Operator Name Role Phone Anette Gutierrez MD Primary Care Provider [phone] Eri Serna MD Unavailable [phone] Edilma Chun [facility]- Unavailable Allergies Active Allergy Reactions Criticality Noted Date Comments Milnacipran Unknown 10/12/2020 Trazodone Unknown 10/12/2020 Vilazodone Unknown 10/12/2020 Medications multivitamin tablet Take 1 tablet by mouth daily. Active traMADol ER 300 MG TABLET SR 24 HR 24 hr tablet Take 1 tablet by mouth daily. 0 9 Active triamterene-hy drochlorothiaz refugio 37.5-25 MG tablet Take 1 tablet by mouth daily. 9 Active ursodiol 500 MG tablet Take 500 mg by mouth 3 (three) times daily. Take with meals 0 9 Active atorvastatin 10 MG tablet Take 10 mg by mouth daily. 0 Active CPAP DEVICE, DME, 1 Device by Does not apply route. Active CPAP SUPPLIES Active clobetasol 0.05 % ointment Apply topically see administration instructions. Apply and gently massage in affected area(s) twice daily Active furosemide 20 MG tablet see administration instructions. Take one tablet 2-3 days per week in the morning for swelling 1 Active metFORMIN 500 MG tablet Take 1 tablet by mouth 2 (two) times daily. Active vitamin D3, cholecalcifero l, (VITAMIN D) 1000 UNIT Tab tablet Take 1,000 Units by mouth daily. Active cetirizine 10 MG tablet Take 10 mg by mouth daily. Active SYNTHROID 175 MCG tabletIndicati ons:Hypothyroi dism TAKE 1 TABLET DAILY 90 tablet 3 Active Active Problems Problem Noted Date Diagnosed Date Hyperlipidemia, mixed 10/21/2020 Essential (primary) hypertension 10/21/2020 Acquired hypothyroidism 09/12/2019 Non-toxic multinodular goiter 09/12/2019 Family History Medical History Relation Comments Colon Cancer Maternal Grandmother Cancer Mother liver Colon Cancer Mother malignant neoplasm Mother Arthritis Other Diabetes Other Hypertension Other Stroke Other cardiac disorder Other evangelina disease Other Relation Status Comments Maternal Grandmother Mother Other Social History Tobacco Use Types Packs/Day Years [...] on file 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 Gender Identity Not on file Sexual Orientation Not on file Occupation Industry Job Start Date Job End Date Not on file Not on file Not on file Not on file Last Filed Vital Signs Vital Sign Reading Time Taken Comments Blood Pressure 130/80 10/14/2020 1:12 PM CDT Pulse 68 10/14/2020 1:12 PM CDT Temperature 36.4 ??C (97.6 ??F) 08/10/2020 2:39 PM CD T Respiratory Rate 16 10/14/2020 1:12 PM CDT Oxygen Saturation 98% 10/14/2020 1:12 PM CDT Inhaled Oxygen Concentration - - Weight 96.2 kg (212 lb) 10/21/2020 1:00 PM CDT Height 162.6 cm (5' 4 ) 10/21/2020 1:00 PM CDT Body Mass Index 36.39 10/21/2020 1:00 PM CDT Plan of Treatment Health Maintenance Due Date Last Done Comments Cervical Cancer Screening Pa p Smear (Age 30 to 64) Every 3 Years 1960 Annual Physical 1963 Hepatitis C 1978 DTaP, Tdap and Td Vaccines ( 1 - Tdap) 1979 Cervical Cancer Screening Pa p with HPV Testing (Age 30 to 64) Every 5 Years 1990 Cervical Cancer Screening wi th HPV 1990 Mammogram Screening 2000 Zoster Vaccines (1 of 2) 2010 Colorectal Cancer Screening Colonoscopy (10 Years) 07/29/2023 07/28/2013, 07/28/2013 COVID-19 Vaccine ( - 2023-2 5 season) 2023 Influenza Adult (#1) 2023 RSV Immunization or 60+ Years (1 - 1-dose 75+ series) 2035 Meningococcal Vaccine Aged Out No gracie cristina eligible based on patient's age to complete this topic Pneumococcal Vaccine: Pediatrics (0 to 5 Years) and At-Risk Patients (6 to 64 Years) Aged Out No longer eligible b ased on patient's age to complete this topic RSV Immunizations Under 20 Months Aged Out No longer eligible b ased on patient's age to complete this topic Procedures Procedure Name Priority Date/Time Associated Diagnosis Comments COLONOSCOPY GENERIC (SCAN ORDER) Routine 07/28/2013 from Last 3 Months or Most Recently Relevant to Health Maintenance Results * COLONOSCOPY (07/28/2013) us Documents Scanned SCANNING Final Result Performing Organization Address City/State/[facility] Phone Number [facility] from Last 3 Months or Most Recently Relevant to Health Maintenance Insurance [facility] Care Teams Private Branch Exchange Operator Relationship Specialty Start Date End Date Anette Gutierrez MD [address] [place] [id number] PCP - General INTERNAL MEDICINE 05/22/18 Eri Serna MD [address] [place] [address] ENDOCRINOLOGY 05/22/18 Edilma Chun, PICKED EDGE SEWING MACHINE OPERATOR- [address] [place] [address] [employer] Music Copyist NURSE PRACTITIONER 10/08/20
--- OUTSIDE RECORDS SUMMARY | 2024-02-12 03:43 | XMS_ITS | Encounter Summary ---
Author Organization [facility] Address [address] [place] [address]. [place] [address] [place] [address] Care Team Providers Care Group Art Supervisor Name Role Phone Susan Gutierrez MD Primary Care Provider [phone] Eri Serna MD Unavailable [phone] Reason for Visit * Reason Comments Hypothyroidism * Consultation (Routine) - Closed Specialty Diagnoses / Procedures Referred By Charisse schulz Referred To Contact ENDOCRINOLOGY Diagnoses 1 year recheck RS from 08/06 Dr salomon Procedures FOLLOW UP Susan Gutierrez MD [address] [place] [address] Phone: tel: fax: Eri Serna MD [address] [facility] [place] [address] Phone: tel: fax: Referral ID Status Reason Start Date Expiration Date Visits Re quested Visits Authorized [id number] Closed 09/12/2019 11/22/2022 25 25 Encounter Details Date Type Department Care Team (Late st Contact Info) Description 09/12/2019 1:20 PM CDT Office Visit [facility] Diabetes and Endocrinology - [address] [phone] [place] [address] [place] [address] [place] [address] Hypothyroidism Social History Tobacco Use Types Packs/Day Years Used Date Smoking Tobacco: Former Smokeless Tobacco: Never Comments:Quit 35 years ago Comments Unknown Sex and Gender Information Value Date Recorded Sex Assigned at Not on file 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 No / Unsure 09/12/2019 5:21 AM CDT documented as of this encounter Last Filed Vital Signs Vital Sign Reading Time Taken Comments Blood Pressure 110/70 09/12/2019 1:48 PM CDT Pulse 67 09/12/2019 1:48 PM CDT Temperature 36.2 ??C (97.2 ??F) 09/12/2019 1:48 PM CD T Respiratory Rate - - Oxygen Saturation 98% 09/12/2019 1:48 PM CDT Inhaled Oxygen Concentration - - Weight 101 kg (222 lb 9.6 oz) 09/12/2019 1:48 PM CDT Height 162.6 cm (5' 4 ) 09/12/2019 1:48 PM CDT Body Mass Index 38.21 09/12/2019 1:48 PM CDT documented in this encounter Progress Notes * Eri Serna MD - 09/12/2019 1:20 PM CDT Reason for Visit: Hypothyroidism History of Present Illness: HPI 59-year-old patient with hypothyroidism and nodular goiter Patient is currently taking levothyroxine 175 mcg 1 tablet once a day for 6-1/2 days. I had decreased the dose in July 2018 when her TSH was suppressed. She says she feels good on this dose and has lost 6 pounds over the last year. She does not complain of any palpitations or shakiness and she has not had her thyroid blood work done today. With regards to thyroid nodules patient has very small thyroid nodules on her right lobe left lobe and isthmus and most of them are subcentimeter. Last ultrasound was in 2016 and it had not increasedin size compared to ultrasound in 2015. There is no family history of thyroid [...] (two) times daily., Disp: , Rfl: ??? LEVOTHYROXINE 175 MCG tablet, TAKE 1 TABLET BY MOUTH ONCE DAILY., Disp: 90 tablet, Rfl: 3 ??? multivitamin [...] file Gets together: Not on file Attends catholic service: Not on file Active member of [...] good eye contact, appropriate mood. Filed Vitals: 09/12/19 1348 BP: 110/70 Pulse: 67 Temp: 97.2 ??F (36.2 ??C) SpO2: 98% Weight: 101 kg (222 lb 9.6 oz) Height: 5' 4 (1.626 m) SODIUM [...] found for: MICROALBUMINLASTLABX(UAALB:2) Diagnoses/Impression: 1. Acquired hypothyroidism THYROXINE, FREE (FT4) THYROID STIM HORMONE, TSH 2. Non-toxic multinodular goiter Recommendations and Plan: 59-year-old patient with hypothyroidism and goiter is here for follow-up. With regards to hypothyroidism clinically she seems to be euthyroid. I need to check a TSH and freeT4 and decide if the dose of thyroid hormone needs to change. With regards to goiter since it is 3 years that the ultrasound was done I wanted to repeat an ultrasound. Patient wants to wait until next year does not want to go get ultrasound done during the coronavirus pandemic. We will plan ultrasound next year. I will see her back for follow-up appointment in 6 months with TSH and free T4 ERI SERNA Referring Provider: Eri Serna MD PCP: SUSAN GUTIERREZ MD documented in this encounter Plan of Treatment Not on file documented as of this encounter Procedures Procedure Name Priority Date/Time Associated Diagnosis Comments THYROXINE, FREE (FT4) Routine 09/12/2019 2:22 PM CDT Acquired hypothyroidism THYROID STIM HORMONE TSH Routine 09/12/2019 2:22 PM CDT Acquired hypothyroidism documented in this encounter Results * THYROID STIM HORMONE, TSH (09/12/2019 2:22 PM CDT) TSH 0.462 0.358 - 3.740 uIU/ML 09/12/2019 7:20 PM CDT [facility] 09/12/2019 2:22 PM CDT Eir Serna MD LABORATORY Final Re sult Performing Organization Address [facility] Co de Phone Number [address] [address], [place] [phone] * (ABNORMAL) THYROXINE, FREE (FT4) (09/12/2019 2:22 PM CDT) FREE T4 1.80(H) 0.76 - 1.46 NG/DL 09/12/2019 7:20 PM CDT [facility] 09/12/2019 2:22 PM CDT Eri Serna MD LABORATORY Final Re sult Performing Organization Address [facility] Co de Phone Number [address] [address], [place] [phone] documented in this encounter Visit Diagnoses Diagnosis Acquired hypothyroidism- Primary Unspecified hypothyroidism Non-toxic multinodular goiter Nontoxic multinodular goiter documented in this encounter Care Teams Group Art Supervisor Relationship Specialty Start Date End Date Susan Gutierrez MD [facility] [place] [address] PCP - General INTERNAL MEDICINE 05/22/18 Eri Serna MD [address] [place] [address] ENDOCRINOLOGY 05/22/18 documented as of this encounter
--- OUTSIDE RECORDS SUMMARY | 2024-02-12 03:43 | XMS_ITS | Encounter Summary ---
Author Organization [facility] Address [address] [place] [address]. [place] [address] [place] [address] Care Team Providers Care Engagement Director Name Role Phone Anette Gutierrez MD Primary Care Provider [phone] Eri Serna MD Unavailable [phone] Gibson Travis Unavailable Reason for Referral * Imaging (Routine) - Closed Specialty Diagnoses / Procedures Referred By Charisse schulz Referred To Contact Diagnoses Shortness of breath Heart palpitations Procedures CLINIC - OUTPATIENT EVENT RECORDER (ECG) UP TO 30 DAYS COMPLETE (Holter) Gibson Travis FNP-BC [address] [place] [id number] Phone: tel: fax: Gibson Travis FNP-BC [address] [facility] [place] [address] Phone: tel: fax: Referral ID Status Reason Start Date Expiration Date Visits Re quested Visits Authorized [id number] Closed 10/14/2020 11/13/2021 1 1 * Imaging (Routine) - Closed Specialty Diagnoses / Procedures Referred By Contac t Referred To Contact RADIOLOGY Diagnoses Shortness of breath Heart palpitations Procedures USE STRESS ECHO W CON Gibson Travis, HAIDER-TRACE [address] [place] [address] Phone: tel: fax: [facility] [address] [place] [address] Phone: tel: fax: Referral ID Status Reason Start Date Expiration Date Visits Re quested Visits Authorized [id number] Closed 10/14/2020 11/14/2021 2 2 Reason for Visit * Reason Comments Follow Up Encounter Details Date Type Department Care Team (Late st Contact Info) Description 10/14/2020 1:00 PM CDT Office Visit [facility] [address] [place] [address] Gibson Travis FNP-BC [address] [place] [address] Follow Up Social History Tobacco Use Types [...] on file 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 HISTORY OF PRESENT ILLNESS: I had the pleasure of seeing Martin Isabel. She is a pleasant 60-year-old woman with fibromyalgia and newly diagnosed diabetes mellitus. She had a Holter monitor showing PVCs and PACs, no sinus node dysfunction, normal high and low heart rates. She said after she took off the monitor, she then had a bout of palpitations. She exercises very little. She said she has chest pains and shortness of breath, but was quite vague. A 12-lead EKG showssinus rhythm, low voltage in precordial leads, and she does have some obesity. She agrees to a stress echo and a 30-day event recorder. IMPRESSION AND PLAN: 1. Palpitations. There were no particular findings on her Holter. However, she had significant palpitations after taking off of the Holter, we will do a 30-day event recorder. 2. Diabetes mellitus is followed in endocrinology. 3. Hypertension is well controlled; however, with diabetes mellitus, I would suggest Lisinopril as opposed to Triamterene and Hydrochlorothiazide. And also I am not sure why she might be on Lasix. Francis do a stress echo. 4. Diabetes. Improved control is recommended. 5. Dyslipidemia. She is on a statin medication. I would suggest a higher dose. Please continue to follow through primary services. 6. Sedentary lifestyle. Increased activity is advised. Thank you for the opportunity to see your patient, Ms. Martin Isabel. I will plan to see her afterher testing. Medications: Current Outpatient Medications: ??? atorvastatin 10 MG tablet, Take 10 mg by mouth daily., Disp: , Rfl: ??? cetirizine 10 MG tablet, Take 10 mg by mouth daily., Disp: , Rfl: ??? clobetasol 0.05 % ointment, Apply topically see administration instructions. Apply and gently massage in affected area(s) twice daily, Disp: , Rfl: ??? CPAP DEVICE, DME,, 1 Device by Does not apply route., Disp: , Rfl: ??? CPAP SUPPLIES, , Disp: , Rfl: ??? furosemide 20 MG tablet, see administration instructions. Take one tablet 2- 3 days per week in the morning for swelling, Disp: , Rfl: ??? levothyroxine 175 MCG tablet, Take 1 tablet (175 mcg total) by mouth daily., Disp: 90 tablet, Rfl: 3 ??? metFORMIN 500 MG tablet, Take 1 tablet by mouth 2 (two) times daily., Disp: , Rfl: ??? multivitamin tablet, Take 1 tablet by mouth daily., Disp: , Rfl: ??? traMADol ER 300 MG TABLET SR 24 HR 24 hr tablet, Take 1 tablet by mouth daily., Disp: , Rfl: 0 ??? triamterene-hydrochlorothiazide 37.5-25 MG tablet, Take 1 tablet by mouth daily. , Disp: , Rfl: ??? ursodiol 500 MG tablet, Take 500 mg by mouth 3 (three) times daily. Take with meals, Disp: , Rfl: 0 ??? vitamin D3, cholecalciferol, (VITAMIN D) 1000 UNIT Tab tablet, Take 1,000 Units by mouth daily., Disp: , Rfl: Allergies Allergen Reactions ??? Savella [Milnacipran] Unknown ??? Trazodone Unknown ??? Viibryd [Vilazodone] Unknown Past Medical History: Diagnosis Date ??? Depression ??? Diabetes (CMS/HCC) ??? Fibromyalgia ??? Graves disease ??? H/O hydrocephalus ??? High cholesterol ??? Hypertension ??? Hypothyroidism ??? RONAN on CPAP ??? Restless leg syndrome Past Surgical History: Procedure Laterality Date ??? COLONOSCOPY Social History Tobacco Use ??? Smoking status: Former Smoker Quit date: 1997 Years since quittin.7 ??? Smokeless tobacco: Never Used ??? Tobacco comment: Quit 35 years ago Substance Use Topics ??? Alcohol use: Never Family History Problem Relation Name Age of Onset ??? Colon Cancer Mother ??? Cancer Mother liver ??? Other (malignant neoplasm) Mother ??? Colon Cancer Maternal Grandmother ??? Diabetes Other ??? Arthritis Other ??? Stroke Other ??? Hypertension Other ??? Other (cardiac disorder) Other ??? Other (evangelina disease) Other Family Status Relation Name Status ??? Mother (Not Specified) ??? MGM (Not Specified) ??? Other (Not Specified) Review of Systems Constitutional: Negative for recent unintentional weight gain, recent unintentional weight loss andnew or significant fatigue. HENT: Negative for new or significant hearing loss. Eyes: Negative for blurred vision and double vision. Respiratory: Positive for shortness of breath. Negative for cough and snoring. Cardiovascular: See HPI. Positive for chest pain and palpitations. Gastrointestinal: Negative for blood in stool and melena. Genitourinary: Negative for dysuria. Musculoskeletal: Negative for myalgias and new or worsening joint stiffness/pain. Skin: Negative for rash. Neurological: Negative for tingling/numbness and focal weakness. Endo/Heme/Allergies: Negative for new or significant bruising/bleeding and polydipsia. Psychiatric/Behavioral: Negative for depression and new or significant memory loss. Vitals: 10/14/20 1312 BP: 130/80 Patient Position: Sitting BP Location: Right arm Pulse: 68 Weight: 96.2 kg (212 lb) Height: 5' 4 (1.626 m) Body mass index is 36.39 kg/m??. Cardiac Exam Rate/Rhythm: Normal rate and regular rhythm. PMI: PMI is not displaced. Pulses: Normal pulses. Carotid pulses are 2+ on the right side and 2+ on the left side. Radial pulses are 2+ on the right side and 2+ on the left side. Heart Sounds: Normal heart sounds. Normal S1 sounds. Normal S2 sounds. No gallop present. No S3. NoS4. Murmurs: Edema left: 0. Edema Right: 0. Physical Exam Constitutional: No distress. Healthy Appearance. HENT: Oropharynx clear. Eyes: Pupils equal, round, and reactive to light. Conjunctivae normal. Neck: Neck supple. Abdomen: Abdomen soft. Bowel sounds normal. No tenderness. No mass. No hepatomegaly. No splenomegaly. Abdominal aorta not palpably enlarged. No abdominal bruit present. Pulmonary: Effort normal. Breath sounds normal. No stridor. No rales. No wheezes. Skin: Dry. Warm. No rash. No cyanosis. No clubbing. No xanthoma. Musculoskeletal: No gross deformity.. Neurological: Alert. Oriented x 3. Appropriate mood and affect. Normal motor skills. Normal gait. Comments: Diagnoses/Impression: 1. Shortness of breath ELECTROCARDIOGRAM USE STRESS ECHO W CON CLINIC - OUTPATIENT EVENT RECORDER (ECG) UP TO 30 DAYS COMPLETE (Holter) 2. Heart palpitations ELECTROCARDIOGRAM USE STRESS ECHO W CON CLINIC - OUTPATIENT EVENT RECORDER (ECG) UP TO 30 DAYS COMPLETE (Holter) 3. Essential (primary) hypertension 4. Hyperlipidemia, mixed Referring Provider: Anette Gutierrez MD PCP: ANETTE GUTIERREZ MD documented in this encounter Plan of Treatment Not on file documented as of this encounter Procedures Procedure Name Priority Date/Time Associated Diagnosis Comments ELECTROCARDIOGRAM (NON MIDMARK ACQUIRED) Routine 10/14/2020 1:33 PM CDT Shortness of breath Heart palpitations documented in this encounter Results * CLINIC - OUTPATIENT EVENT RECORDER (ECG) UP TO 30 DAYS COMPLETE (Holter) (11/18/2020 7:37 AM CDT) Narrative [facility] - 11/18/2020 7:37 AM CDT Jared Harvey MD ? 11/18/2020 ??3:13 PM Cardiac Electrophysiology Procedure Note Holter/Event monitor/MCT report PATIENT NAME: Martin Isabel : 1960 DATE OF TESTIN10/14/2020 - 11/12/2020, 21 days and 4 hours TYPE OF MONITOR: Mobile Cardiac Telemetry (MCT) ORDERING PROVIDER: NITISH SAUCEDA M.D. INDICATION: Shortness of breath FINDINGS: ?? [...] etiology of her symptoms. Jared Harvey MD, RS Cardiac Vegetable Worker [facility] us Gibson Machado TEAM LEAD-BC CV VASCULAR O RDERABLES Final Result [facility] * USE STRESS ECHO W CON (10/21/2020 3:22 PM CDT) Anatomical Region Laterality Modality NA Cardiac Electrop hysiology 10/21/2020 2:39 PM CDT Narrative 10/21/2020 5:30 PM CDT ?Stress Echocardiography Report Pat.Name: ??MARTIN ISABEL ?Pat.ID: ?[id number] ? St.Date: ?? 10/21/2020 ? Refer.MD: ??[id number], GIBSON TRAVIS Exam Time: 2:39:00 PM ? [...] Echocardiography Report Pat.Name: MARTIN ISABEL MALGORZATA Pat.ID: [id number] St.Date: 10/21/2020 Refer.: [id number], GIBSON TRAVIS Exam Time: 2:39:00 PM Study Type:PHARM STRESS ECHO CONT DOP COL Height: 63.78in Weight: 211.2lb BSA: 2 m2 Age: 2 1960,60Y Sex: FEMALE BP: 133/75 HR: 65 bpm Sonogrphr: Kris Way [facility] Allie Castillo Stat.:Outpatient Reason for Study:Palpitations, Shortness [...] 05:30 PM Juancarlos Valentin M.D. Gibson Machado TEAM LEAD-BC ECHO Final Result * ELECTROCARDIOGRAM (10/14/2020 1:33 PM CDT) 10/14/2020 1:33 PM CDT [facility] - 10/19/2020 4:43 PM CDT ? [facility] ?[address] [place], [place] ??[address] ? Test Date: ?2020-10-14 Pat Name: ? MARTIN ISABEL ? Department: ? Room: ? Gender: ? Female ? Safety Specialist: ?? : ?1960 ? Requested By: NITISH SAUCEDA Order Number: [id number] ?Reading MD: ?? Alec Posadas ? Measurements Intervals ?[place] ? Rate: ? 61 ? P: ?11 WA: ? 173 ?QRS: ?-1 QRSD: ? 98 ? T: ?11 QT: ? 431 ? QTc: ?436 ? Interpretive Statements SINUS RHYTHM LOW QRS VOLTAGE IN PRECORDIAL LEADS Procedure Note Alec Posadas MD - 10/19/2020 [facility], [facility] [address] [place] [address] Test Date: 2020-10-14 Pat Name: MARTIN ISABEL Department: Room: Gender: Female Safety Specialist: : 1960 Requested By: NITISH SAUCEDA Order Number: [id number] Reading MD: Alec Posadas Measurements Intervals [place] Rate: 61 P: 11 WA: 173 QRS: -1 QRSD: 98 T: 11 QT: 431 QTc: 436 Interpretive Statements SINUS RHYTHM LOW QRS VOLTAGE IN PRECORDIAL LEADS us Nitish Sauceda MD PROCEDURES-ORDERABLE NO CHARGE Final Result [facility] documented in this encounter Visit Diagnoses Diagnosis Shortness of breath- Primary Heart palpitations Palpitations Essential (primary) hypertension Unspecified essential hypertension Hyperlipidemia, mixed Mixed hyperlipidemia Shortness of breath Heart palpitations Palpitations Chest pain- Primary Chest pain, unspecified Shortness of breath Heart palpitations Palpitations documented in this encounter Additional Health Concerns Assessment Noted Time PHQ-9 Depression Total Score: 0 08/11/19 21 2:40 PM CDT documented as of this encounter Care Teams Engagement Director Relationship Specialty Start Date End Date Anette Gutierrez MD [address] [place] [address] PCP - General INTERNAL MEDICINE 05/22/18 Eri Serna MD [address] [place] [address] ENDOCRINOLOGY 05/22/18 Gibson Travis, TEAM LEAD- [facility] [place] [address] [place] Production Control Expert NURSE PRACTITIONER 10/08/20 documented as of this encounter
--- OUTSIDE RECORDS SUMMARY | 2024-02-12 03:43 | XMS_ITS | Encounter Summary ---
Author Organization [facility] Address [address] [place] [address]. 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
--- OUTSIDE RECORDS SUMMARY | 2024-02-12 03:43 | XMS_ITS | Encounter Summary ---
Author Organization [facility] Address [address] [place] [address]. [place] [address] [place] [address] Care Team Providers Care Rn Wound Name Role Phone Anette Gutierrez MD Primary Care Provider [phone] Eri Serna MD Unavailable [phone] Reason for Referral * Imaging (Routine) - Closed Specialty Diagnoses / Procedures Referred By Contac zeus Referred To Contact RADIOLOGY Diagnoses Non-toxic multinodular goiter Procedures US THYROID Eri Serna MD [address] [place] [address] Phone: tel: fax: Referral ID Status Reason Start Date Expiration Date Visits Re quested Visits Authorized [id number] Closed 08/10/2020 09/09/2021 1 1 Reason for Visit * Imaging (Routine) - Closed Specialty Diagnoses / Procedures Referred By Charisse schulz Referred To Contact RADIOLOGY Diagnoses Non-toxic multinodular goiter Procedures US THYROID Eri Serna MD [address] [place] [address] Phone: tel: fax: Referral ID Status Reason Start Date Expiration Date Visits Re quested Visits Authorized [id number] Closed 08/10/2020 09/09/2021 1 1 Encounter Details Date Type Department Care Team (Latest Contact Info) Description 09/20/2020 1:00 PM CDT - 09/20/2020 11:59 PM CDT Hospital Encounter [facility] - [address] [place] [address] Eri Serna MD [address] [place] [address] Discharge Disposition: Home or Self Care (Routine [...] on file 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 No / Unsure 09/20/2020 12:58 PM CDT documented as of this encounter Medications at Time of Discharge atorvastatin 10 MG tablet Take 10 mg by mouth daily. 08/25/2019 furosemide 20 MG tablet see administration instructions. Take one tablet 2-3 days per week in the morning for swelling 09/16/2020 multivitamin tablet Take 1 tablet by mouth daily. traMADol ER 300 MG TABLET SR 24 HR 24 hr tablet Take 1 tablet by mouth daily. 0 07/23/2018 triamterene-hyd rochlorothiazid e 37.5-25 MG tablet Take 1 tablet by mouth daily. 07/29/2018 ursodiol 500 MG tablet Take 500 mg by mouth 3 (three) times daily. Take with meals 0 07/22/2018 cetirizine (ZYRTEC ALLERGY) 10 MG tablet Take 1 tablet by mouth. 1 Cholecalciferol (VITAMIN D3) 2000 units Tab Take 1 tablet by mouth daily. 1 clobetasol 0.05 % cream Apply topically 2 (two) times daily. 1 desonide 0.05 % cream Apply topically 2 (two) times daily. 1 levothyroxine 175 MCG tabletIndicatio ns:Hypothyroidi sm Take 1 tablet (175 mcg total) by mouth daily. 90 tablet 3 04/05/2020 1 documented as of this encounter Plan of Treatment Not on file documented as of this encounter Procedures Procedure Name Priority Date/Time Associated Diagnosis Comments US THYROID Routine 09/20/2020 1:21 PM CDT Non-toxic multinodular goiter documented in this encounter Results * US THYROID (09/20/2020 [...] reporting thyroid imaging studies with management guidelines. https://www.acr.org/Clinical-Resources/Unqwqncjp-hcc-Lopv-Systems/TI-RADS Referred By: ERI SERNA Interpreted By: Dominic [...] but with some central hyperechoic material-0 points, Rbtmi-staj-puyo - 0 points, Smooth - 0 points, [...] anechoic but with some central hyperechoic material-0points, Gujns-ikyg-ozhd - 0 points, Smooth - 0 points, [...] and reporting thyroid imaging studies withmanagement guidelines. https://www.acr.org/Clinical-Resources/Hxhlfytyg-pdc-Mhjc-Systems/TI-RADS Referred By: ERI SERNA Interpreted By: Dominic Mcelroy MD, 09/24/2020 2:40 PM us Eri Serna MD ULTRASOUND Final Re sult documented in this encounter Visit Diagnoses Diagnosis Non-toxic multinodular goiter Nontoxic multinodular goiter documented in this encounter Additional Health Concerns Assessment Noted Time PHQ-9 Depression Total Score: 0 08/11/19 21 2:40 PM CDT documented as of this encounter Care Teams Rn Wound Relationship Specialty Start Date End Date Anette Gutierrez MD [address] [place] [address] PCP - General INTERNAL MEDICINE 05/22/18 Eri Serna MD [address] [place] [address] ENDOCRINOLOGY 05/22/18 documented as of this encounter
--- OUTSIDE RECORDS SUMMARY | 2024-02-12 03:43 | XMS_ITS | Encounter Summary ---
Author Organization [facility] Address [address] [place] [address]. [place] [address] [place] [address] Care Team Providers Care Home Health Care Provider Name Role Phone Anette Gutierrez MD Primary Care Provider [phone] Eri Serna MD Unavailable [phone] Encounter Details Date Type Department Care Team (Late st Contact Info) Description 09/09/2019 Orders Only [facility] Medical Group Diabetes and Endocrinology - [address] [phone] Christelle Johnson MD [address] [place] [id number] Social History Tobacco Use Types Packs/Day Years Used Date Smoking Tobacco: Former Smokeless Tobacco: Never Comments:Quit 35 years ago Comments Unknown Sex and Gender Information Value Date Recorded Sex Assigned at Not on file 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 Sex 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 Gender Identity Not on file Sexual Orientation Not on file documented as of this encounter Progress Notes * Maria Ines Stroud MA - 09/09/2019 12:49 PM CDT error documented in this encounter Plan of Treatment Not on file documented as of this encounter Visit Diagnoses Diagnosis Hypothyroidism- Primary Unspecified hypothyroidism documented in this encounter Care Teams Home Health Care Provider Relationship Specialty Start Date End Date Anette Gutierrez MD [address] [place] [address] PCP - General INTERNAL MEDICINE 05/22/18 Eri Serna MD [address] [place] [address] ENDOCRINOLOGY 05/22/18 documented as of this encounter
--- OUTSIDE RECORDS SUMMARY | 2024-02-12 03:43 | XMS_ITS | Encounter Summary ---
Author Organization [facility] Address [address] [place] [address]. [place] [address] [place] [address] Care Team Providers Care Talent Analyst Name Role Phone Anette Gutierrez MD Primary Care Provider [phone] Eri Serna MD Unavailable [phone] Edilma Chun [facility] Unavailable Reason for Visit * Reason Comments Holter Monitor Report (SCAN) Encounter Details Date Type Department Care Team (Late st Contact Info) Description 09/16/2020 [facility] [address] [place] [address] Scanned, Documents Holter Monitor Report (SCAN) Social History Tobacco Use Types Packs/Day Years Used Date Smoking Tobacco: Former Smokeless Tobacco: Never Comments:Quit 35 years ago PHQ-2 Answer Date Recorded PHQ-2 Score - If the patient scores above 3, please move on to questions 3-9 0 08/10/2020 Comments Unknown Sex and Gender Information Value Date Recorded Sex Assigned at Not on file 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 Gender Identity Not on file Sexual Orientation [...] Procedure Name Priority Date/Time Associated Diagnosis Comments BANK RECONCILIATOR Routine 09/16/2020 documented in this encounter Results * BANK RECONCILIATOR (09/16/2020) us Documents Scanned SCANNING Final Result [facility] documented in this encounter Visit Diagnoses Not on filedocumented in this encounter Additional Health Concerns Assessment Noted Time PHQ-9 Depression Total Score: 0 08/11/19 21 2:40 PM CDT documented as of this encounter Care Teams Talent Analyst Relationship Specialty Start Date End Date Anette Gutierrez MD [address] [place] [address] PCP - General INTERNAL MEDICINE 05/22/18 Eri Serna MD [address] [place] [address] ENDOCRINOLOGY 05/22/18 Edilma Chun, GROUP CAPTAIN- [address] [place] [address] [employer] [employer]p Network Architect NURSE PRACTITIONER 10/08/20 documented as of this encounter
--- OUTSIDE RECORDS SUMMARY | 2024-02-12 03:43 | XMS_ITS | Encounter Summary ---
Author Organization [facility] Address [facility] [place] [address] [place] [address] Care Team Providers Care Stock Taker Name Role Phone Anette Gutierrez MD Primary Care Provider [phone] Eri Serna MD Unavailable [phone] Edilma Chun [facility] Unavailable Encounter Details Date Type Department Care Team (Latest Contact Info) Description 02/10/2021 4:17 PM QC MANAGER - 02/10/2021 11:59 PM QC MANAGER Hospital Encounter [facility] [address] [facility] [address] Anette Gutierrez MD [address] [place], [place] [address] Discharge Disposition: Home or Self Care (Routine [...] on file Legal Sex Female 9:37 PM QC MANAGER Gender Identity Not on file Sexual Orientation Not on file Occupation Industry Job Start Date Job End Date Not on file Not on file Not on file Not on file COVID-19 Exposure Response Date Recorded In the last month, have you been in contact with someone who was confirmed or suspected to have Coronavirus / COVID-19? No / Unsure 02/10/2021 4:17 PM QC MANAGER documented as of this encounter Medications at [...] tablet Take 1 tablet by mouth daily. SYNTHROID 175 MCG tabletIndicatio ns:Hypothyroidi sm TAKE 1 TABLET DAILY 90 tablet 3 01/31/2021 traMADol ER 300 MG TABLET SR 24 [...] tablet Take 1,000 Units by mouth daily. documented as of this encounter Plan of Treatment Not on file documented as of this encounter Procedures Procedure Name Priority Date/Time Associated Diagnosis Comments HEMOGLOBIN, GLYCOSYLATED Routine 02/10/2021 4:22 PM QC MANAGER Diabetes mellitus ([facility]) documented in this encounter Results * (ABNORMAL) HEMOGLOBIN, GLYCOSYLATED (02/10/2021 4:22 PM QC MANAGER) HGB A1C 6.5(H) <5.7 % 02/10/2021 6:59 PM QC MANAGER [facility] Comment: INCREASED RISK OF DIABETES <5.7% ?NON-DIABETES 5.7-6.4% INCREASED RISK FOR FUTURE DIABETES > OR = 6.5 CONSISTENT WITH DIABETES STANDARDS OF MEDICAL CARE IN DIABETES-2010 DIABETES CARE, 33(SUPP 1): S1-S61,2010 02/10/2021 4:22 PM QC MANAGER Anette Gutierrez MD LABORATORY Final Result [facility] [address] [place] [address], documented in this encounter Visit Diagnoses Diagnosis Diabetes mellitus ([facility]/HCC [facility]) Type II or unspecified type diabetes mellitus without mention of complication, not stated as uncontrolled documented in this encounter Additional Health Concerns Assessment Noted Time PHQ-9 Depression Total Score: 0 08/11/19 21 2:40 PM CDT documented as of this encounter Care Teams Stock Taker Relationship Specialty Start Date End Date Anette Gutierrez MD [address] [place] [address] PCP - General INTERNAL MEDICINE 05/22/18 Eri Serna MD [facility] [place] [address] ENDOCRINOLOGY 05/22/18 Edilma Chun, WEB SITE DESIGNER- [address] [place] [address] Ashby Compositor Apprentice NURSE PRACTITIONER 10/08/20 documented as of this encounter
--- OUTSIDE RECORDS SUMMARY | 2024-02-12 03:44 | XMS_ITS | Encounter Summary ---
Author Organization [facility] Address [address] [place] [address]. 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 She was called as we had not received her lab results. Talked to patient today and she said she has to get other lab work done for another doctor on 03/10/13 and she will get her thyroid lab work done at that time. Plan 1. Free T4 (Thyroxine) Requested for: 10Mar2013 2. TSH (Thyroid Stim Hormone) Requested for: 10Mar2013 Signatures Electronically signed by : Connie Yusuf, ; Feb 26 2013 4:30PM (Author) R MAKER documented in this encounter Plan of Treatment Not on file documented as of this encounter Visit Diagnoses Not on filedocumented in this encounter
--- OUTSIDE RECORDS SUMMARY | 2024-02-12 03:44 | XMS_ITS | Encounter Summary ---
Author Organization [facility] Address [address] [place] [address]. 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
--- OUTSIDE RECORDS SUMMARY | 2024-02-12 03:44 | XMS_ITS | Encounter Summary ---
Author Organization [facility] Address [address] [place] [address]. [place] [address] [place] [address] Care Team Providers Care Spring Fitter Helper Name Role Phone Unavailable Primary Care Provider Unavailabl e Encounter Details Date Type Department Care Team (Latest Contact Info) Description 04/08/2013 Abstract [facility] Medical [facility] Social History Tobacco Use Types Packs/Day Years Used Date Smoking Tobacco: Never Assessed Comments Unknown Sex and Gender Information Value Date Recorded Sex Assigned at Not on file Legal Sex Female 9:37 PM ASW SPECIALIST Gender Identity Not on file Sexual Orientation Not on file documented as of this encounter Progress Notes * Bebeto Valentin Md, MD - 04/08/2013 1:47 PM CST Message Recorded as Task Date: 04/08/2013 12:10 PM, Created By: Eri Serna Task Name: Call Back [facility] Regarding Patient: IsabelMary J, Status: Active Comment: Eri Serna - 08 Apr 2013 12:10 PM TASK CREATED thyroid levels are good. no change in the dose of synthroid Erendira Gunn - 08 Apr 2013 1:47 PM TASK EDITED Spoke with patient and let her know that her thyroid levels came back normal and that she should continue the same dose of synthroid. Patient verbalized understanding Signatures Electronically signed by : Erendira Gunn R.N.; Apr 08 2013 1:47PM ASW SPECIALIST (Author) SPECIALIST documented in this encounter Plan of Treatment Not on file documented as of this encounter Visit Diagnoses Not on filedocumented in this encounter
--- OUTSIDE RECORDS SUMMARY | 2024-02-12 03:44 | XMS_ITS | Encounter Summary ---
Author Organization [facility] Address [address] [place] [address]. 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
--- OUTSIDE RECORDS SUMMARY | 2024-02-12 03:44 | XMS_ITS | Encounter Summary ---
Author Organization [facility] Address [address] [place] [address]. [place] [address] [place] [address] Care Team Providers Care Windows Infrastructure Engineer Name Role Phone Unavailable Primary Care Provider Unavailabl e Encounter Details Date Type Department Care Team (Late st Contact Info) Description 07/18/2004 Abstract [facility] [address] [place], [place] [id number] [place] [address] [place] [address] [place] [address] Social History Tobacco Use Types Packs/Day Years Used Date Smoking Tobacco: Never Assessed Comments Unknown Sex and Gender Information Value Date Recorded Sex Assigned at Not on file Legal Sex Female 9:37 PM TECHNICAL ASSISTANT Gender Identity Not on file Sexual Orientation Not on file documented as of this encounter Plan of Treatment Not on file documented as of this encounter Visit Diagnoses Not on filedocumented in this encounter
--- OUTSIDE RECORDS SUMMARY | 2024-02-12 03:44 | XMS_ITS | Encounter Summary ---
Author Organization [facility] Address [address] [place] [address]. 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
--- OUTSIDE RECORDS SUMMARY | 2024-02-12 03:44 | XMS_ITS | Encounter Summary ---
Author Organization [facility] Address [address] [place] [address]. 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
--- OUTSIDE RECORDS SUMMARY | 2024-02-12 03:44 | XMS_ITS | Encounter Summary ---
Author Organization [facility] Address [address] [place] [address]. 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
--- OUTSIDE RECORDS SUMMARY | 2024-02-12 03:44 | XMS_ITS | Encounter Summary ---
Author Organization [facility] Address [address] [place] [address]. [place] [address] [place] [address] Care Team Providers Care Cage Supervisor Name Role Phone Unavailable Primary Care Provider Unavailabl e Encounter Details Date Type Department Care Team (Late st Contact Info) Description 05/19/2016 Abstract [facility] Diabetes and Endocrinology - [address] [phone] Eri Serna MD [address] [place] [id number] Social History Tobacco Use Types Packs/Day Years Used Date Smoking Tobacco: Never Assessed Comments Unknown Sex and Gender Information Value Date Recorded Sex Assigned at Not on file Legal Sex Female 9:37 PM SILVERWARE BUFFER Gender Identity Not on file Sexual Orientation Not on file documented as of this encounter Last Filed Vital Signs Vital Sign Reading Time Taken Comments Blood Pressure 130/70 05/19/2016 11:11 AM CDT Pulse 65 05/19/2016 11:11 AM CDT Temperature - - Respiratory Rate - - Oxygen Saturation - - Inhaled Oxygen Concentration - - Weight 97.1 kg (214 lb 2.1 oz) 05/19/2016 11:11 AM CDT Height 162.6 cm (5' 4 ) 05/19/2016 11:11 AM CDT Body Mass Index 36.76 05/19/2016 11:11 AM CDT documented in this encounter Progress Notes * Eri Serna MD - 05/19/2016 11:00 AM CDT History of Present Illness This is a 56-year-old patient with hypothyroidism and nodular goiter is here for follow-up. Patienthad radioactive iodine treatment in 1993 and since then she has been hypothyroid. Patient is currently taking Levoxyl 188 mcg 1 tablet once a day and patient says that she does not have any problems with difficulty swallowing, pain while swallowing, shakiness in her hands, palpitations, or constipation. She feels that the dose is working well at this time. She has lost about 8 pounds since the last time she was here. She does have some increased sweating. Patient also has thyroid nodules and the dominant nodule in the left lobe which was 1.5 cm was biopsied in 2014 as it had microcalcifications and irregular margins and it had come back as benign thyroid nodule. Patient does not complain of any change in the size of her neck. She does not complain of increase in the size of the nodules on palpation but she does complain of some tenderness in the neck. Review of Systems Constitutional: no fever and no chills. Cardiovascular: no chest pain and no palpitations. Respiratory: no shortness of breath and no cough. Gastrointestinal: no abdominal pain, no nausea, no constipation, no vomiting and no diarrhea. Genitourinary: no dysuria and no urinary frequency. Active Problems 1. Enlarged thyroid gland (240.9) (E01.0) 2. Fibromyalgia (729.1) (M79.7) 3. Goiter (240.9) [...] ?? Never Drank Alcohol Current Meds 1. Levoxyl 100 MCG Oral Tablet; TAKE 1 TABLET ALONG WITH AN 88 MCG TAB EVER DAY; Therapy: 14May2015 to (Evaluate:08May2016) Requested for: 14May2015; Last Rx:14May2015 Ordered Rx By: Eri Serna; Dispense: 90 Days ; #:90 Tablet; Refill: 3; For: Hypothyroidism; ROULA = Y; Verified Transmission to [facility]; Last Updated By: Gregg SchultzToopher; 05/14/2015 10:17:42 AM 2. Levoxyl 88 MCG Oral Tablet; TAKE ONE TABLET ALONG WITH A 100 MCG TAB EVERY DAY; Therapy: 14May2015 to (Evaluate:08May2016) Requested for: 14May2015; Last Rx:14May2015 Ordered Rx By: Eri Serna; Dispense: 90 Days ; #:90 Tablet; Refill: 3; For: Hypothyroidism; ROULA = Y; Verified Transmission to [facility]; Last Updated By: Gregg SchultzToopher; 05/14/2015 10:17:40 AM 3. Multivitamins TABS; TAKE 1 TABLET DAILY; Therapy: (Recorded:[id number]) to Recorded Dispense: 0 Days ; #: Sufficient Tablet; Refill: 0; For: Health Maintenance; ROULA = N; Record; Last Updated By: Karen Baum; 09/09/2011 12:36:20 PM 4. TraMADol HCl ER 300 MG Oral Tablet Extended Release 24 Hour; TAKE 1 TABLET DAILY; Therapy: [id number] to Recorded Dispense: 0 Days ; #: Sufficient Tablet Extended Release 24 Hour; Refill: 0; ROULA = N; Record; Last Updated By: Connie Yusuf; 12/11/2011 2:06:54 PM 5. Ursodiol 500 MG Oral Tablet; TAKE 1 TABLET 3 TIMES DAILY WITH MEALS; Therapy: (Recorded:11Dec2011) to Recorded Dispense: 0 Days ; #: Sufficient Tablet; Refill: 0; For: Primary biliary cirrhosis; ROULA = N; Record; Last Updated By: Connie Yusuf; 12/11/2011 2:29:30 PM 6. Vitamin B12 TABS; TAKE 1 TABLET DAILY DIRECTED; Therapy: (Recorded:19Dec2012) to Recorded Dispense: 0 Days ; #: Sufficient Tablet; Refill: 0; For: Health Maintenance; ROULA = N; Record; Last Updated By: oCnnie Yusuf; 12/19/2012 3:00:55 PM 7. Vitamin D3 2000 UNIT Oral Tablet; Take 1 tablet daily; Therapy: (Recorded:19Feb2014) to Recorded Dispense: 0 Days ; #: Sufficient Tablet; Refill: 0; For: Health Maintenance; ROULA = N; Record; Last Updated By: Erendira Gunn; 02/19/2014 12:07:24 PM 8. ZyrTEC Allergy 10 MG Oral Tablet; TAKE 1 TABLET AT BEDTIME; Therapy: (Recorded:19Dec2012) to Recorded Dispense: 0 Days ; #: Sufficient Tablet; Refill: 0; For: Itching; ROULA = N; Record; Last Updated By:Connie Yusuf; 12/19/2012 3:00:55 PM Allergies 1. No Known Drug Allergies Recorded By: Karen Baum; 09/06/2011 8:34:12 AM Vitals Recorded: 19May2016 11:11AM Heart Rate 65 Systolic 130 Diastolic 70 O2 Saturation 98 Height 5 ft 4 in Weight 214 lb 2 oz BMI Calculated 36.75 BSA Calculated 2.01 Physical Exam Constitutional General appearance: No acute [...] and time: Normal. Mood and affect: Normal. Assessment 1. Hypothyroidism (244.9) (E03.9) 2. Solitary thyroid nodule (241.0) (E04.1) Plan 1. Call if: You begin to have tremors or your hands become shaky.; Status:Complete; Done: 19May2016 Ordered; For:Hypothyroidism; Ordered By:Eri Serna; 2. Call if: You gain or lose over 10 pounds without a change in your diet.; Status:Complete; Done: [id number] Ordered; For:Hypothyroidism; Ordered By:Eri Serna; 3. Call if: You have symptoms of anxiety.; Status:Complete; Done: [id number] Ordered; For:Hypothyroidism; Ordered By:Eri Serna; Discussion/Summary A 56-year-old patient with hypothyroidism following radioactive iodine treatment and multinodular goiter is here for follow-up. Clinically, patient is euthyroid biochemically. She will get her TSH and free T4 done and I will have to call her back with the results. Thyroid nodules. Her last ultrasound was done in 2014 at which time the biopsy came back as benign and as it has been 2 years and patient is having some tenderness in her neck, I will redo the ultrasound. I want this done within the next 6 months. The nurse will call the patient and set her up for an ultrasound. There is family history of thyroid cancer in her great-grandmother and patient has never had any radiation treatment. I will plan to see her back in 1 year in the clinic for follow-up of hypothyroidism and multinodular goiter with TSH and free T4. Signatures Electronically signed by : Eri Serna M.D.; May 22 2016 9:49AM SILVERWARE BUFFER (Author) documented in this encounter Plan of Treatment Not on file documented as of this encounter Visit Diagnoses Not on filedocumented in this encounter
--- OUTSIDE RECORDS SUMMARY | 2024-02-12 03:44 | XMS_ITS | Encounter Summary ---
Author Organization [facility] Address [address] [place] [address]. 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 ?- NEGATIVE FOR MALIGNANT CELLS. ?- CYTOLOGIC FEATURES CONSISTENT WITH LYMPHOCYTIC THYROIDITIS. Diagnostic Comments: Fine needle aspiration biopsy was performed by Dr. Marcos in Ultrasound. ??Assessment of adequacy was performed by Dr. Marquez. Pass 1 was interpreted as unsatisfactory for evaluation, blood only. Passes 2 and 3 were interpreted as limited for evaluation showing predominantly lymphocytes and blood. ??Passes 4 through 6 were interpreted as adequate material obtained showing scattered groups of thyroid follicular epithelium and abundant lymphoid material. Electronically Signed Out ? Alvarez Marquez M.D. (Clinical History: Left Thyroid Nodule Gross Description: PASSES MADE: ?6 ?SPECIMEN RECEIVED: ? 6 Diff-Quik slides and 6 alcohol fixed slides ?SLIDES PREPARED: ?12 smears ?STAINS: ? Papanicolaou, Diff-Quik ?? Signed Out: 11/03/2014 [facility] TO EPIC CONVERSION 11/02/2014 2:15 PM CDT 11/02/2014 2:15 PM CDT Narrative [facility] TO EPIC CONVERSION - 11/02/2014 2:15 PM CDT [id number] 3:01PM by Eri Serna: patient informed abouyt normal biopsy of the thyroid Result Communication: No patient communication needed at this time us Eri Serna MD PATHOLOGY/CYTOLOGY ORDER CHRIS Final Result [facility] TO EPIC CONVERSION documented in this encounter Visit Diagnoses Not on filedocumented in this encounter
--- OUTSIDE RECORDS SUMMARY | 2024-02-12 03:44 | XMS_ITS | Encounter Summary ---
Author Organization [facility] Address [address] [place] [address]. 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
--- OUTSIDE RECORDS SUMMARY | 2024-02-12 03:44 | XMS_ITS | Encounter Summary ---
Author Organization [facility] Address [address] [place] [address]. 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
--- OUTSIDE RECORDS SUMMARY | 2024-02-12 03:44 | XMS_ITS | Encounter Summary ---
Author Organization [facility] Address [address] [place] [address]. 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
--- OUTSIDE RECORDS SUMMARY | 2024-02-12 03:44 | XMS_ITS | Encounter Summary ---
Author Organization [facility] Address [address] [place] [address]. 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
--- OUTSIDE RECORDS SUMMARY | 2024-02-12 03:44 | XMS_ITS | Encounter Summary ---
Author Organization [facility] Address [address] [place] [address]. 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
--- OUTSIDE RECORDS SUMMARY | 2024-02-12 03:44 | XMS_ITS | Encounter Summary ---
Author Organization [facility] Address [address] [place] [address]. 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
--- OUTSIDE RECORDS SUMMARY | 2024-02-12 03:44 | XMS_ITS | Encounter Summary ---
Author Organization [facility] Address [address] [place] [address]. 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 Gender Identity Not on file Sexual Orientation Not on file documented as of this encounter Last Filed Vital Signs Vital Sign Reading Time Taken Comments Blood Pressure 118/76 05/14/2015 9:45 AM CDT Pulse 68 05/14/2015 9:45 AM CDT Temperature - - Respiratory Rate - - Oxygen Saturation - - Inhaled Oxygen Concentration - - Weight 100.8 kg (222 lb 3.2 oz) 05/14/2015 9:45 AM CDT Height - - Body Mass Index 38.14 02/19/2014 12:06 PM CONDUCTOR SYMPHONIC ORCHESTRA documented in this encounter Progress Notes * Eri Serna MD - 05/14/2015 9:40 AM CDT History of Present Illness Hypothyroidism (Follow-Up): The patient reports doing well. Patient has been having problems with headaches and was diagnosed to have hydrocephalus. Patient feels that tirosint is very expensive and Chester Thyroid work better for her. At her last visit here I felt that she had thyroid nodule. Ultrasound showed a 1.5 cm nodule in the left lobe which was irregular. I got up biopsied and it came back is normal in October 2014.She does have occasional palpitations but not too bothersome. Interval symptoms: denies weight gain, denies cold intolerance, stable fatigue, denies weakness, stable constipation and denies dry skin. Associated symptoms: myalgias and arthralgias, but no depression, no leg swelling and no palpitations. Medications: the patient is adherent to her medication regimen, but she denies medication side effects. Disease management: the patient is doing well with her goals. Additional history: TSH 0.2 free T4 of 1.4 . Review of Systems Constitutional: no fever and no chills. Cardiovascular: no chest pain and no palpitations. Respiratory: no shortness of breath and no cough. Gastrointestinal: no abdominal pain, no nausea, no constipation, no vomiting and no diarrhea. Active Problems 1. Enlarged thyroid gland (240.9) [...] ?? Never Drank Alcohol Current Meds 1. Multivitamins TABS; TAKE 1 TABLET DAILY; Therapy: (Recorded:[id number]) to Recorded Dispense: 0 Days ; #: Sufficient Tablet; Refill: 0; For: Health Maintenance; ROULA = N; Record; Last Updated By: Karen Baum; 09/09/2011 12:36:20 PM 2. Tirosint 100 MCG Oral Capsule; take 1 tab daily along with an 88 mcg tab daily; Therapy: 20Feb2014 to (Evaluate:30Jul2015) Requested for: [id number]; Last Rx:[id number] Ordered Rx By: Eri Serna; Dispense: 30 Days ; #:30 Capsule; Refill: 3; For: Hypothyroidism; ROULA= N; Verified Transmission to [facility]; Msg to Pharmacy: ADVISE PATIENT TO SCHEDULEA FOLLOW UP APPT WITH DR. SERNA.; Last Updated By: Zen Schultz; 05/14/2015 10:16:39 AM 3. Tirosint 88 MCG Oral Capsule; take 1 tab daily along with a 100 mcg tab daily; Therapy: 20Feb2014 to (Evaluate:30Jul2015) Requested for: [id number]; Last Rx:[id number] Ordered Rx By: Eri Serna; Dispense: 30 Days ; #:30 Capsule; Refill: 3; For: Hypothyroidism; ROULA= N; Verified Transmission to [facility]; Last Updated By: Zen Schultz; 05/14/2015 10:16:39 AM 4. TraMADol HCl ER 300 MG Oral Tablet Extended Release 24 Hour; TAKE 1 TABLET DAILY; Therapy: 24Aug2011 to Recorded Dispense: 0 Days ; #: [...] N; Record; Last Updated By: Connie Yusuf; 12/19/2012 3:00:55 PM 7. Vitamin D3 [...] Karen Baum; 09/06/2011 8:34:12 AM Vitals Recorded: 14May2015 09:45AM Heart Rate 68 Systolic 118 Diastolic 76 O2 Saturation 96 Weight 222 lb 3.2 oz BMI Calculated 38.14 BSA Calculated 2.05 Physical Exam Constitutional General appearance: No acute distress, well appearing and well nourished. Head and Face Head and face: Normal. Eyes Conjunctiva and lids: No swelling, erythema or discharge. Ears, Nose, Mouth, and Throat External inspection of ears and nose: Normal. Nasal mucosa, septum, and turbinates: Normal without edema or erythema. Neck Neck: Supple, symmetric, trachea midline, no masses. Thyroid: Abnormal. The thyroid was enlarged on the right side and had a rubbery consistency. Pulmonary Respiratory effort: No increased work of breathing or signs of respiratory distress. Cardiovascular Auscultation of heart: Normal rate and rhythm, normal S1 and S2, no murmurs. Musculoskeletal Gait and station: Normal. Skin Skin and subcutaneous tissue: Normal without rashes or lesions. Psychiatric Judgment and insight: Normal. Mood and affect: Normal. Assessment 1. Hypothyroidism (244.9) (E03.9) 2. Goiter (240.9) (E04.9) Plan 1. Tirosint 100 MCG Oral Capsule Rx By: Eri Serna; Dispense: 30 Days ; #:30 Capsule; Refill: 3; For: Hypothyroidism; ROULA= N; Sent To: [facility]; Msg to Pharmacy: ADVISE PATIENT TO SCHEDULE A FOLLOW UP APPT WITH DR. SERNA. Formulary Override Reason: Drug not appropriate now, review in future 2. Tirosint 88 MCG Oral Capsule Rx By: Eri Serna; Dispense: 30 Days ; #:30 Capsule; Refill: 3; For: Hypothyroidism; ROULA= N; Sent To: [place] [address] Formulary Override Reason: Drug not appropriate now, review in future 3. Levoxyl 88 MCG Oral Tablet; TAKE ONE TABLET ALONG WITH A 100 MCG TAB EVERY DAY Rx By: Eri Serna; Dispense: 90 Days ; #:90 Tablet; Refill: 3; For: Hypothyroidism; ROULA = Y; Verified Transmission to [facility] 82; Last Updated By: orderTalk; 05/14/2015 10:17:40 AM 4. Levoxyl 100 MCG Oral Tablet; TAKE 1 TABLET ALONG WITH AN 88 MCG TAB EVER DAY Rx By: Eri Serna; Dispense: 90 Days ; #:90 Tablet; Refill: 3; For: Hypothyroidism; ROULA = Y; Verified Transmission to [facility] 82; Last Updated By: orderTalk; 05/14/2015 10:17:42 AM Discussion/Summary Hypothyroidism- patient is clinically and biochemically euthyroid. Patient has been educated about the symptoms of hypothyroidism which is constipation , fatigue, cold intolerance and hair loss. Also educated about the symptoms of thyrotoxicosis which is palpitations, shakiness and increased sweating. Patient will call and let me know if having symptoms. I have explained to her that Chester Thyroid is not the recommended treatment mainly because of increased risk of 8 or fibrillation and osteoporosis. Patient agrees to stay on T4 replacements but wants to try a different medicine. I will give her a prescription today for Levoxyl 100 mcg with Levoxyl 88 mcg to make a total of 188mcg a day. If patient has any difficulty getting this medicine she will let me know. Since the ultrasound and biopsy 2014 was normal she does not need any thyroid ultrasound at this time. I will plan to see her back with TSH, free T4 in one year. Signatures Electronically signed by : Eri Serna M.D.; May 14 2015 1:14PM CONDUCTOR SYMPHONIC ORCHESTRA (Author) documented in this encounter Plan of Treatment Not on file documented as of this encounter Visit Diagnoses Not on filedocumented in this encounter
--- OUTSIDE RECORDS SUMMARY | 2024-02-12 03:44 | XMS_ITS | Encounter Summary ---
Author Organization [facility] Address [address] [place] [address]. 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 Authorization Release of Information First Name: Kimberly Dallas initial: Last Name: Chalo Liu Kimberly authorize [facility] to release any and all healthcare information aboutme to my [facility] personal health record for my own uses and purposes. I acknowledge that such healthcare information may include the following: x-rays, clinical diagnosis, histories of present illnesses, immunizations, allergies, prescription drug information, mental health screenings, treatment, including psychotherapy notes, diagnostic screening and testing, laboratory results, HIV/AIDS,infectious disease, sexually transmitted infection, genetic testing, substance/alcohol use and treatment history, clinical procedures, domestic violence, child abuse, family abuse, medical research, clinical trials, billing, account, and insurance information. I acknowledge that my authorization includes the authorization to disclose any information or records (within the scope of the authorization) that [facility] has received about me from other healthcare providers or facilities. [facility] may, within its discretion, withhold from disclosure any of the above information as permitted or required by law. Access to treatment or services may not be denied to me if I decline to sign this Authorization or revoke my Authorization. However, without this Authorization, my Provider will not electronically release my healthcare information to my [facility] personal health record. I may revoke this Authorization at any time. Such revocation will promptly take effect except to the extent that [facility] already has acted based on this Authorization. I may revoke this Authorization by removing [facility] as a health care provider with whichI want to be connected on my [facility] account or providing my request to [facility]. However, I acknowledge that data previously submitted by [facility] as authorized by me prior to my subsequent revocation of this Authorization will remain in my [employer] account. This authorization shall end upon the earliest of (1) the termination of the connection between my healthcare provider and my [facility] (2) upon my written request submitted to [email or web address]). For Authorized Representatives of Patients younger than 18 years old: This Authorization shall upon the earliest of: (1) the date the minor reaches the age of 18; or (2) the date [facility] receives written revocation from the minor, as an emancipated minor with legal authority to managehis/her own healthcare. I have been informed that once my healthcare information is disclosed to [facility], it will nolonger be protected health information covered by the Health Insurance Portability and Accountability Act of 1996 ( HIPAA ) and may be subject to further disclosure, subject to the [facility] Terms of Use, Privacy Policy and applicable federal and state law with respect to re- disclosures of health information. I understand that [facility] is not responsible for my health information once that data isdisclosed to [facility] pursuant to this Authorization. I have the right to receive a copy of this Authorization and may do so by clicking [Print] above. Signed on 02/21/2014 Please complete the following information: Kimberly Isabel 1960 If signing on behalf of a Patient, please complete the following: Relationship to Patient: [Place x in the appropriate box below] [X] Patient [ ] Parent/Guardian/Other Legal Shell Reprint Operator By clicking [I ACCEPT], I acknowledge and agree to the terms of this Authorization. documented in this encounter Plan of Treatment Not on file documented as of this encounter Visit Diagnoses Not on filedocumented in this encounter
--- OUTSIDE RECORDS SUMMARY | 2024-02-12 03:44 | XMS_ITS | Encounter Summary ---
Author Organization [facility] Address [address] [place] [address]. [place] [address] [place] [address] Care Team Providers Care Sheet Metal Shop Supervisor Name Role Phone Unavailable Primary Care Provider Unavailabl e Encounter Details Date Type Department Care Team (Late st Contact Info) Description 03/15/2011 Abstract [facility] Diabetes and Endocrinology - [place] [address] [place] [phone] Devan Riley MD [address] [place] [address] [address] [place] [address] Social History Tobacco Use Types Packs/Day Years Used Date Smoking Tobacco: Never Assessed Comments Unknown Sex and Gender Information Value Date Recorded Sex Assigned at Not on file 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
--- OUTSIDE RECORDS SUMMARY | 2024-02-12 03:44 | XMS_ITS | Encounter Summary ---
Author Organization [facility] Address [address] [place] [address]. 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
--- OUTSIDE RECORDS SUMMARY | 2024-02-12 03:44 | XMS_ITS | Encounter Summary ---
Author Organization [facility] Address [address] [place] [address]. [place] [address] [place] [address] Care Team Providers Care Exam Proctor Name Role Phone Unavailable Primary Care Provider Unavailabl e Encounter Details Date Type Department Care Team (Latest Contact Info) Description 02/19/2014 Abstract [facility] Group Eri Serna MD [address] [place] [address] Social History Tobacco Use Types Packs/Day Years Used Date Smoking Tobacco: Never Assessed Comments Unknown Sex and Gender Information Value Date Recorded Sex Assigned at Not on file Legal Sex Female 9:37 PM FILM CASTING OPERATOR Gender Identity Not on file Sexual Orientation Not on file documented as of this encounter Plan of Treatment Not on file documented as of this encounter Procedures Procedure Name Priority Date/Time Associated Diagnosis Comments COMPREHENSIVE METABOLIC PANEL Routine 02/19/2014 6:24 PM FILM CASTING OPERATOR THYROXINE, FREE (FT4) Routine 02/19/2014 6:24 PM FILM CASTING OPERATOR THYROID STIM HORMONE TSH Routine 02/19/2014 6:24 PM FILM CASTING OPERATOR documented in this encounter Results * THYROXINE, FREE (FT4) (02/19/2014 6:24 PM FILM CASTING OPERATOR) FREE T4 1.4 0.9 - 1.5 ng/dL [facility] TO EPIC CONVERSION 02/19/2014 6:24 PM FILM CASTING OPERATOR 02/19/2014 6:24 PM FILM CASTING OPERATOR Narrative [facility] TO [facility] CONVERSION - 02/19/2014 7:14 PM FILM CASTING OPERATOR Result Communication: No patient communication needed at this time Eri Serna MD LABORATORY Final Re sult [facility] TO EPIC CONVERSION * THYROID STIM HORMONE, TSH (02/19/2014 6:24 PM FILM CASTING OPERATOR) TSH 0.35 0.35 - 4.94 mcIU/mL [facility] TO EPIC CONVERSION 02/19/2014 6:24 PM FILM CASTING OPERATOR 02/19/2014 6:24 PM FILM CASTING OPERATOR Narrative [facility] TO EPIC CONVERSION - 02/19/2014 7:14 PM FILM CASTING OPERATOR Result Communication: No patient communication needed at this time Eri Serna MD LABORATORY Final Re sult Performing Organization Address [facility]/ZIP Co de Phone Number [facility] TO EPIC CONVERSION * (ABNORMAL) COMPREHENSIVE METABOLIC PANEL (02/19/2014 6:24 PM FILM CASTING OPERATOR) SODIUM S/P/B 138 135 - 147 mmol/L [facility] TO EPIC CONVERSION POTASSIUM S/P/B 4.3 3.5 - 5.0 mmol/L [facility] TO EPIC CONVERSION CHLORIDE S/P/B 103 98 - 107 mmol/L [facility] TO EPIC CONVERSION CO2 24 22 - 29 mmol/L [facility] TO EPIC CONVERSION GLUCOSE 94 70 - 109 mg/dL [facility] TO EPIC CONVERSION BUN 9(L) 10 - 20 mg/dL [facility] TO EPIC CONVERSION CREATININE S/P/B 0.8 0.6 - 1.1 mg/dL [facility] TO EPIC CONVERSION CALCIUM S/P/B 9.2 8.4 - 10.2 mg/dL [facility] TO EPIC CONVERSION BILIRUBIN TOTAL S/P/B 0.7 0.2 - 1.2 mg/dL [facility] TO EPIC CONVERSION ALKALINE PHOSPHATASE S/P/B 188(H) 41 - 108 U/L [facility] TO EPIC CONVERSION AST 19 5 - 35 U/L [facility] TO EPIC CONVERSION ALT 20 0 - 55 U/L [facility] TO EPIC CONVERSION TOTAL PROTEIN S/P/B 6.6 6.0 - 8.3 g/dL [facility] TO EPIC CONVERSION ALBUMIN S/P/B 3.8 3.4 - 4.9 g/dL [facility] TO EPIC CONVERSION ANION GAP 11 [facility] T O EPIC CONVERSION OSMOLALITY (CALC) 274 mOsm/kg [facility] TO EPIC CONVERSION EGFR NON-AFR. AMER. 75 >60 mL/min/1.7 3sq.m [facility] TO EPIC CONVERSION EGFR AFR. AMER. 91 >60 mL/min/1.7 3sq.m [facility] TO EPIC CONVERSION 02/19/2014 6:24 PM FILM CASTING OPERATOR 02/19/2014 6:24 PM FILM CASTING OPERATOR Narrative [facility] TO EPIC CONVERSION - 02/19/2014 6:56 PM FILM CASTING OPERATOR Result Communication: No patient communication needed at this time us Eri Serna MD LABORATORY Final Re sult [facility] TO EPIC CONVERSION documented in this encounter Visit Diagnoses Not on filedocumented in this encounter
--- OUTSIDE RECORDS SUMMARY | 2024-02-12 03:44 | XMS_ITS | Encounter Summary ---
Author Organization [facility] Address [address] [place] [address]. [place] [address] [place] [address] Care Team Providers Care Senior Analytic Consultant Name Role Phone Unavailable Primary Care Provider Unavailabl e Encounter Details Date Type Department Care Team (Latest Contact Info) Description 03/24/2012 Abstract [facility] Social History Tobacco Use Types Packs/Day Years Used Date Smoking Tobacco: Never Assessed Comments Unknown Sex and Gender Information Value Date Recorded Sex Assigned at Not on file Legal Sex Female 9:37 PM WASTE RECYCLER Gender Identity Not on file Sexual Orientation Not on file documented as of this encounter Plan of Treatment Not on file documented as of this encounter Visit Diagnoses Not on filedocumented in this encounter
--- OUTSIDE RECORDS SUMMARY | 2024-02-12 03:44 | XMS_ITS | Encounter Summary ---
Author Organization [facility] Address [address] [place] [address]. [place] [address] [place] [address] Care Team Providers Care Elevator Builder Name Role Phone Unavailable Primary Care Provider Unavailabl e Encounter Details Date Type Department Care Team (Latest Contact Info) Description 02/23/2015 Abstract [facility] Social History Tobacco Use Types Packs/Day Years Used Date Smoking Tobacco: Never Assessed Comments Unknown Sex and Gender Information Value Date Recorded Sex Assigned at Not on file Legal Sex Female 9:37 PM BOOK EDITOR Gender Identity Not on file Sexual Orientation Not on file documented as of this encounter Plan of Treatment Not on file documented as of this encounter Visit Diagnoses Not on filedocumented in this encounter
--- OUTSIDE RECORDS SUMMARY | 2024-02-12 03:44 | XMS_ITS | Encounter Summary ---
Author Organization [facility] Address [address] [place] [address]. [place] [address] [place] [address] Care Team Providers Care Reordering Clerk Name Role Phone Unavailable Primary Care Provider Unavailabl e Encounter Details Date Type Department Care Team (Late st Contact Info) Description 05/23/[address] [place], [place] [address] Anette Gutierrez MD [address] [place] [address] Social History Tobacco Use Types Packs/Day Years Used Date Smoking Tobacco: Never Assessed Comments Unknown Sex and Gender Information Value Date Recorded Sex Assigned at Not on file Legal Sex Female 9:37 PM STENCIL MAKER Gender Identity Not on file Sexual Orientation Not on file documented as of this encounter Plan of Treatment Not on file documented as of this encounter Visit Diagnoses Diagnosis Encounter for screening mammogram for malignant neoplasm of breast Other screening mammogram documented in this encounter
--- OUTSIDE RECORDS SUMMARY | 2024-02-12 03:44 | XMS_ITS | Encounter Summary ---
Author Organization [facility] Address [address] [place] [address]. [place] [address] [place] [address] Care Team Providers Care Superintendent Oil Well Services Name Role Phone Unavailable Primary Care Provider Unavailabl e Encounter Details Date Type Department Care Team (Late st Contact Info) Description 11/02/2014 Abstract [facility] Diagnostic Imaging [address] [place], [place] [address] Eri Serna MD [address] [place] [address] Social History Tobacco Use Types Packs/Day Years Used Date Smoking Tobacco: Never Assessed Comments Unknown Sex and Gender Information Value Date Recorded Sex Assigned at Not on file Legal Sex Female 9:37 PM CORE CUTTER Gender Identity Not on file Sexual Orientation Not on file documented as of this encounter Plan of Treatment Not on file documented as of this encounter Visit Diagnoses Diagnosis Nontoxic uninodular goiter documented in this encounter
--- OUTSIDE RECORDS SUMMARY | 2024-02-12 03:44 | XMS_ITS | Encounter Summary ---
Author Organization [facility] Address [address] [place] [address]. [place] [address] [place] [address] Care Team Providers Care Coin Box Collector Name Role Phone Unavailable Primary Care Provider Unavailabl e Encounter Details Date Type Department Care Team (Latest Contact Info) Description 10/06/2014 Abstract [facility] Medical Group Social History Tobacco Use Types Packs/Day Years Used Date Smoking Tobacco: Never Assessed Comments Unknown Sex and Gender Information Value Date Recorded Sex Assigned at Not on file Legal Sex Female 9:37 PM HOSIERY MATER Gender Identity Not on file Sexual Orientation Not on file documented as of this encounter Progress Notes * Generic Conversion MD Lynsey - 10/06/2014 11:34 AM CDT Message Recorded as Task Date: 10/05/2014 01:08 PM, Created By: Eri Serna Task Name: Call Back Assigned To: [facility]GSDEC-Phone Nurse Regarding Patient: Kimberly Isabel, Status: Active Comment: Eri Serna - 05 Oct 2014 1:08 PM TASK CREATED thyroid numbers look good. NO change in the dose of thyroid hormone. Will plan to get Ultrasound ofthe thyroid as planned. schedule thyroid ultarsound due to enlarged right lobe on exam Margret Dolan - 05 Oct 2014 3:56 PM TASK REASSIGNED: Previously Assigned To [facility]GSDEC-Nurse Team Reassigning to SDEC-Phone Nurse per Erendira Malcolm - 06 Oct 2014 11:39 AM TASK EDITED Notified patient that she is scheduled for thyroid ultrasound at [facility] off of [address] [place] [address] on SundayOctober 09 at 11:45Am. Patient verbalized understanding. Erendira Gunn - 06 Oct 2014 11:40 AM TASK EDITED Patient told that her thyroid levels were good and to continue on the same dose of medication at this time. Patient verbalized understanding. Plan 1. US Thyroid Parathyroid; Status:Active; Requested for:[id number]; Perform:[facility]; Order Comments:SCHEDULED FOR US OF THRYOID FOR ENLARGED RIGHT SIDE OF THYROID ON SundaySeptember AT 11:45AM AT [facility] OFF OF [address] [place] [address]; Due:[id number]; Last Updated By:Erendira Gunn; 10/06/2014 11:37:52 AM;Ordered; For:Enlarged thyroid gland, Goiter, Hypothy roidism; Ordered By:Eri Serna; Signatures Electronically signed by : Erendira Gunn R.N.; Oct 06 2014 11:40AM HOSIERY MATER (Author) documented in this encounter Plan of Treatment Not on file documented as of this encounter Visit Diagnoses Not on filedocumented in this encounter
--- OUTSIDE RECORDS SUMMARY | 2024-02-12 03:44 | XMS_ITS | Encounter Summary ---
Author Organization [facility] Address [address] [place] [address]. [place] [address] [place] [address] Care Team Providers Care Bus Aide Name Role Phone Unavailable Primary Care Provider Unavailabl e Encounter Details Date Type Department Care Team (Late st Contact Info) Description 07/09/2009 Abstract [facility] [address] [place] [address] Liza Alejandro MD [address] [place] [address] Social History Tobacco Use Types Packs/Day Years Used Date Smoking Tobacco: Never Assessed Comments Unknown Sex and Gender Information Value Date Recorded Sex Assigned at Not on file Legal Sex Female 9:37 PM FILM SOUND COORDINATOR Gender Identity Not on file Sexual Orientation Not on file documented as of this encounter Plan of Treatment Not on file documented as of this encounter Visit Diagnoses Diagnosis Other screening mammogram documented in this encounter
--- OUTSIDE RECORDS SUMMARY | 2024-02-12 03:44 | XMS_ITS | Encounter Summary ---
Author Organization [facility] Address [address] [place] [address]. [place] [address] [place] [address] Care Team Providers Care Mobile Game Engineer Name Role Phone Anette Gutierrez MD Primary Care Provider [phone] Eri Serna MD Unavailable [phone] Edilma Chun [facility] Unavailable Encounter Details Date Type Department Care Team (Late st Contact Info) Description 04/28/2017 Abstract [facility] [address] [place] [address] , Generic ConversionMD Social History Tobacco Use Types Packs/Day Years Used Date Smoking Tobacco: Never Assessed Comments Unknown Sex and Gender Information Value Date Recorded Sex Assigned at Not on file Legal Sex Female 9:37 PM KIER TENDER Gender Identity Not on file Sexual Orientation Not on file documented as of this encounter Plan of Treatment Not on file documented as of this encounter Visit Diagnoses Not on filedocumented in this encounter Care Teams Mobile Game Engineer Relationship Specialty Start Date End Date Anette Gutierrez MD [address] [place] [address] PCP - General INTERNAL MEDICINE 05/22/18 Eri Serna MD [address] [place] [address] ENDOCRINOLOGY 05/22/18 Edilma Chun, PHOTOGRAPHIC DEVELOPER AND PRINTER-BC [address] [place] [address] Yannick Mold Filling Operator NURSE PRACTITIONER 10/08/20 documented as of this encounter
--- OUTSIDE RECORDS SUMMARY | 2024-02-12 03:44 | XMS_ITS | Encounter Summary ---
Author Organization [facility] Address [address] [place] [address]. [place] [address] [place] [address] Care Team Providers Care Rug Measurer Name Role Phone Unavailable Primary Care Provider Unavailabl e Encounter Details Date Type Department Care Team (Late st Contact Info) Description 10/30/2003 Abstract [facility] Diagnostic Imaging [address] [place], [place] [id number] [place] [address] [place] [address] [place], [place] [address] Social History Tobacco Use Types Packs/Day Years Used Date Smoking Tobacco: Never Assessed Comments Unknown Sex and Gender Information Value Date Recorded Sex Assigned at Not on file Legal Sex Female 9:37 PM DRIER OPERATOR HEAD Gender Identity Not on file Sexual Orientation Not on file documented as of this encounter Plan of Treatment Not on file documented as of this encounter Visit Diagnoses Not on filedocumented in this encounter
--- OUTSIDE RECORDS SUMMARY | 2024-02-12 03:44 | XMS_ITS | Encounter Summary ---
Author Organization [facility] Address [address] [place] [address]. [place] [address] [place] [address] Care Team Providers Care Manager Of Regulatory Affairs Name Role Phone Unavailable Primary Care Provider Unavailabl e Encounter Details Date Type Department Care Team (Latest Contact Info) Description 06/05/2016 Abstract [facility] Medical Group Social History Tobacco Use Types Packs/Day Years Used Date Smoking Tobacco: Never Assessed Comments Unknown Sex and Gender Information Value Date Recorded Sex Assigned at Not on file Legal Sex Female 9:[address]NICIAN Gender Identity Not on file Sexual Orientation Not on file documented as of this encounter Progress Notes * Generic Conversion MD Lynsey - 06/05/2016 12:58 PM CDT Message Recorded as Task Date: 06/05/2016 12:53 PM, Created By: Eri Serna Task Name: Call Back Assigned To: [facility] Nurse Team Regarding Patient: Kimberly Isabel, Status: Active Comment: Eri Serna - 05 Jun 2016 12:53 PM TASK CREATED thyroid dose is too high. decrease the dose from 188 mcg to 175 mcg of LT4. repeat tsh and free t4 in 2 months Aline Guardado - 05 Jun 2016 12:59 PM TASK EDITED Pt notified and new script sent to the pharmacy. Plan 1. Levothyroxine Sodium 175 MCG Oral Tablet; TAKE 1 BY MOUTH DAILY Rx By: Eri Serna; Dispense: 90 Days ; #:90 Tablet; Refill: 3; For: Hypothyroidism; ROULA = N; Sent To: [facility]; Last Updated By: Aline Guardado; 06/05/2016 12:59:15 PM Signatures Electronically signed by : Aline Guardado L.P.N.; Jun 05 2016 1:00PM CT TECHNICIAN (Author) documented in this encounter Plan of Treatment Not on file documented as of this encounter Visit Diagnoses Not on filedocumented in this encounter
--- OUTSIDE RECORDS SUMMARY | 2024-02-12 03:44 | XMS_ITS | Encounter Summary ---
Author Organization [facility] Address [address] [place] [address]. [place] [address] [place] [address] Care Team Providers Care Laborer Laboratory Name Role Phone Unavailable Primary Care Provider Unavailabl e Encounter Details Date Type Department Care Team (Latest Contact Info) Description 09/10/2014 Abstract [facility] Medical Group Social History Tobacco Use Types Packs/Day Years Used Date Smoking Tobacco: Never Assessed Comments Unknown Sex and Gender Information Value Date Recorded Sex Assigned at Not on file Legal Sex Female 9:37 PM REMELT FURNACE EXPEDITER Gender Identity Not on file Sexual Orientation Not on file documented as of this encounter Progress Notes * Generic Conversion MD Lynsey - 09/10/2014 3:12 PM CDT Message Recorded as Task Date: 09/09/2014 10:10 AM, Created By: Connie Yusuf Task Name: Follow Up Assigned To: Connie Yusuf Regarding Patient: Kimberly Isabel, Status: Active Comment: Connie Yusuf - 09 Sep 2014 10:10 AM TASK CREATED Please call and get her scheduled to see Dr. Serna. She was supposed to have done f/u thyroid labs in April but failed to do so. Please get her scheduled. She will need to have thyroidlabs done prior to her appt. with Dr. Serna. Brittney Jeffries - 10 Sep 2014 12:15 PM TASK REPLIED TO: Previously Assigned To Annmarie Smith Patient is coming in on 09-30-14. I have mailed her a reminder and her lab orders. Signatures Electronically signed by : Connie Yusuf, ; Sep 10 2014 3:12PM REMELT FURNACE EXPEDITER (Author) documented in this encounter Plan of Treatment Not on file documented as of this encounter Visit Diagnoses Not on filedocumented in this encounter
--- OUTSIDE RECORDS SUMMARY | 2024-02-12 03:44 | XMS_ITS | Encounter Summary ---
Author Organization [facility] Address [address] [place] [address]. [place] [address] [place] [address] Care Team Providers Care It Operations Analyst Name Role Phone Unavailable Primary Care Provider Unavailabl e Encounter Details Date Type Department Care Team (Late st Contact Info) Description 07/29/1991 Abstract [facility] [address] [place] [address] , Generic Conversion, Social History Tobacco Use Types Packs/Day Years Used Date Smoking Tobacco: Never Assessed Comments Unknown Sex and Gender Information Value Date Recorded Sex Assigned at Not on file Legal Sex Female 9:37 PM REFUSE COLLECTOR SUPERVISOR Gender Identity Not on file Sexual Orientation Not on file documented as of this encounter Plan of Treatment Not on file documented as of this encounter Visit Diagnoses Not on filedocumented in this encounter
--- OUTSIDE RECORDS SUMMARY | 2024-02-12 03:44 | XMS_ITS | Encounter Summary ---
Author Organization [facility] Address [address] [place] [address]. [place] [address] [place] [address] Care Team Providers Care Correctional Lieutenant Name Role Phone Unavailable Primary Care Provider Unavailabl e Encounter Details Date Type Department Care Team (Latest Contact Info) Description 03/15/2012 Abstract [facility] Social History Tobacco Use Types Packs/Day Years Used Date Smoking Tobacco: Never Assessed Comments Unknown Sex and Gender Information Value Date Recorded Sex Assigned at Not on file Legal Sex Female 9:37 PM DEVELOPER ADVISOR Gender Identity Not on file Sexual Orientation Not on file documented as of this encounter Plan of Treatment Not on file documented as of this encounter Visit Diagnoses Not on filedocumented in this encounter
--- OUTSIDE RECORDS SUMMARY | 2024-02-12 03:44 | XMS_ITS | Encounter Summary ---
Author Organization [facility] Address [address] [place] [address]. [place] [address] [place] [address] Care Team Providers Care Plant Clerk Name Role Phone Unavailable Primary Care Provider Unavailabl e Encounter Details Date Type Department Care Team (Late st Contact Info) Description 08/23/2005 Abstract [facility] [address] [place], [place] [address] [place] [address] [place] [address] [place] [address] Social History Tobacco Use Types Packs/Day Years Used Date Smoking Tobacco: Never Assessed Comments Unknown Sex and Gender Information Value Date Recorded Sex Assigned at Not on file Legal Sex Female 9:37 PM SPORTS MEDICINE SPECIALIST Gender Identity Not on file Sexual Orientation Not on file documented as of this encounter Plan of Treatment Not on file documented as of this encounter Visit Diagnoses Not on filedocumented in this encounter
--- OUTSIDE RECORDS SUMMARY | 2024-02-12 03:44 | XMS_ITS | Encounter Summary ---
Author Organization [facility] Address [address] [place] [address]. 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 Gender Identity Not on file Sexual Orientation Not on file documented as of this encounter Last Filed Vital Signs Vital Sign Reading Time Taken Comments Blood Pressure 138/74 12/11/2011 2:29 PM CDT Pulse 78 12/11/2011 2:43 PM CDT Temperature - - Respiratory Rate - - Oxygen Saturation - - Inhaled Oxygen Concentration - - Weight 94.3 kg (208 lb) 12/11/2011 2:29 PM CDT Height 162.6 cm (5' 4 ) 12/11/2011 2:29 PM CDT Body Mass Index 35.7 12/11/2011 2:29 PM CDT documented in this encounter Progress Notes * Eri Serna MD - 12/11/2011 1:40 PM CDT History of Present Illness HPI: She has had hyperthyroidism and had HERNANDEZ in 1993 since then she is hypothyroid and on medications. Hypothyroidism (Follow-Up): The patient is being seen for follow-up of post- ablation hypothyroidism. The patient reports doing well. She has had no significant interval events. Interval symptoms: denies weight gain, denies cold intolerance, stable fatigue, denies weakness, stable constipation and denies dry skin. Associated symptoms: myalgias and arthralgias, but no depression, no leg swelling and no palpitations. Medications: the patient is adherent to her medication regimen, but she denies medication side effects. Having difculty cutting the dose in half. Disease management: the patient is doing well with her goals. Due for: thyroid stimulating hormone and free T4. Review of Systems Complete-Female: Constitutional: fatigue, but no fever and no chills. Head and Face: negative. Eyes: negative. ENT: negative. Active Problems 1. Fibromyalgia 729.1 2. Hyperlipidemia 272.4 3. Hypothyroidism 244.9 4. Itching (Pruritus) 698.9 Past Medical History 1. History of Hypothyroidism Post Radio-iodine Treatment E932.8 Surgical History 1. History of Section 2. History of Dental Surgery Family History 1. Maternal history of Colon Cancer V16.0 2. Family history of Cancer 3. Family history of Diabetes Mellitus V18.0 4. Family history of Heart Disease V17.49 Social History ?? Never A Smoker ?? Never Drank Alcohol Current Meds 1. [place] Thyroid TABS; 2 1/2 Grains daily; Therapy: (Recorded:[id number]) to 2. Modafinil 100 MG Oral Tablet; Therapy: 11Aug2011 to 3. Multivitamins Oral Tablet; TAKE 1 TABLET DAILY; Therapy: (Recorded:[id number]) to 4. TraMADol HCl 300 MG Oral Tablet Extended Release 24 Hour; TAKE 1 TABLET DAILY; Therapy: [id number] to 5. Vitamin D TABS; Take as directed; Therapy: (Recorded:[id number]) to Allergies 1. No Known Drug Allergies Vitals Vital Signs [Data Includes: Current Encounter] 11Dec2011 02:43PM 11Dec2011 02:29PM Heart Rate 78 BMI Calculated 35.51 BSA Calculated 1.99 Height 5 ft 4 in Weight 208 lb Systolic Sitting 138 Diastolic Sitting 74 Physical Exam Constitutional General appearance: No acute [...] rhythm, normal S1 and S2, without murmurs. 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 Hypothyroidism 244.9 3. Hyperlipidemia 272.4 Plan 1. [place] Thyroid 120 MG Oral Tablet; TAKE 1 TABLET DAILY Requested for: 11Dec2011; Last Rx:11Dec2011; Edited Ordered; For: Hypothyroidism (244.9); Rx By: Eri Serna; Dispense: 30 Days ; #:30 Tablet;Refill: 6; Verified Transmission to [facility] 8215 2. [place] Thyroid 30 MG Oral Tablet; TAKE 1 TABLET DAILY; Therapy: 11Dec2011 to (Evaluate:[id number]) Requested for: 11Dec2011; Last Rx:11Dec2011; Edited Ordered; For: Hypothyroidism (244.9); Rx By: Eri Serna; Dispense: 30 Days ; #:30 Tablet;Refill: 6; Verified Transmission to [facility] 8215 Discussion/Summary Discussion Summary: Has gained 8 lbs since last visit. I will check her TSH, free T4 and total t3 to see if her dose needs to be changed. Other than the weight gain She is clinically euthyroid. Her a1c has gone up from 5.3-5.9.I have advised that she needs to loose weight to avoid the development of diabetes. Signatures Electronically signed by : Eri Serna M.D.; Dec 11 2011 4:11PM (Author) ING ENGINEER documented in this encounter Plan of Treatment Not on file documented as of this encounter Procedures Procedure Name Priority Date/Time Associated Diagnosis Comments HEMOGLOBIN, GLYCOSYLATED Routine 12/11/2011 2:31 PM CDT GLUCOSE BLOOD, MONITOR DEVICE Routine 12/11/2011 2:30 PM CDT documented in this encounter Results * HEMOGLOBIN, GLYCOSYLATED (12/11/2011 2:31 PM CDT) HGB A1C 5.9 [facility] T O EPIC CONVERSION 12/11/2011 2:31 PM CDT 12/11/2011 2:31 PM CDT us Eri Serna MD LABORATORY Final Re sult Performing Organization Address [facility] Co de Phone Number [facility] TO EPIC CONVERSION * GLUCOSE BLOOD, MONITOR DEVICE (12/11/2011 2:30 PM CDT) GLUCOSE 92 milligrams per deciliter [facility] TO EPIC CONVERSION 12/11/2011 2:30 PM CDT 12/11/2011 2:30 PM CDT us Generic Conversion Md [facility] Final R esult Performing Organization Address [facility] [place] [facility] Co de Phone Number [facility] TO EPIC CONVERSION documented in this encounter Visit Diagnoses Not on filedocumented in this encounter
--- OUTSIDE RECORDS SUMMARY | 2024-02-12 03:44 | XMS_ITS | Encounter Summary ---
Author Organization [facility] [place] [facility] Address [address] [place] [address]. 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
--- OUTSIDE RECORDS SUMMARY | 2024-02-12 03:44 | XMS_ITS | Encounter Summary ---
Author Organization [facility] Address [address] [place] [address]. 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 Gender Identity Not on file Sexual Orientation Not on file documented as of this encounter Progress Notes * Generic Conversion MD Lynsey - 10/13/2014 8:17 AM CDT Message Recorded as Task Date: 10/12/2014 05:34 PM, Created By: Eri Serna Task Name: Call Back Assigned To: [facility]-Phone Nurse Regarding Patient: Kimberly Isabel, Status: Active Comment: Eri Serna - 12 Oct 2014 5:34 PM TASK CREATED set her up for a ultrasound guided FNA of the 1.5 cm left lobe nodule Erendira Gunn - 13 Oct 2014 8:26 AM TASK EDITED Patient scheduled for fine needle aspiration of her left lobe nodule of her thyroid on SundayNovember 02 at 12:30pm at [facility]. Patient notified of appt and verbalized understanding. Plan 1. US Biopsy Thyroid FNA; Status:Active; Requested for:13Oct2014; Perform:[facility]; Order Comments:PATIENT SCHEDULED Sunday AT 12:30PM AT [facility]; Due:[id number]; Last Updated By:Erendira Gunn; 10/13/2014 8:23:51 AM;Ordered; For:Enlarged thyroid gland, Goiter, Hypothyroidism, Solitary thyroid nodule; Ordered By:Humphrey Serna; Signatures Electronically signed by : Erendira Gunn R.N.; Oct 13 2014 8:26AM SECURITY SUPPORT ANALYST (Author) documented in this encounter Plan of Treatment Not on file documented as of this encounter Visit Diagnoses Not on filedocumented in this encounter
--- OUTSIDE RECORDS SUMMARY | 2024-02-12 03:44 | XMS_ITS | Encounter Summary ---
Author Organization [facility] Address [address] [place] [address]. 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
--- OUTSIDE RECORDS SUMMARY | 2024-02-12 03:44 | XMS_ITS | Encounter Summary ---
Author Organization [facility] Address [address] [place] [address]. 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
--- OUTSIDE RECORDS SUMMARY | 2024-02-12 03:44 | XMS_ITS | Encounter Summary ---
Author Organization [facility] Address [address] [place] [address]. [place] [address] [place] [address] Care Team Providers Care Aircraft Machinist Helper Name Role Phone Anette Gutierrez MD Primary Care Provider [phone] Eri Serna MD Unavailable [phone] Reason for Visit * Reason Comments Colonoscopy Report (SCAN) Encounter Details Date Type Department Care Team ([facility] Contact Info) Description 07/28/2013 Scan HEALTH INFO SRVCS Scanned, Documents Colonoscopy Report (SCAN) Social History Tobacco Use Types Packs/Day Years Used Date Smoking Tobacco: Never Assessed Comments Unknown Sex and Gender Information Value Date Recorded Sex Assigned at Not on file Legal Sex Female 9:37 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 Gender Identity Not on file [...] Comments COLONOSCOPY GENERIC (SCAN ORDER) Routine 07/28/2013 documented in this encounter Results * COLONOSCOPY (07/28/2013) us Documents Scanned SCANNING Final Result [facility] documented in this encounter Visit Diagnoses Not on filedocumented in this encounter Care Teams Aircraft Machinist Helper Relationship Specialty Start Date End Date Anette Gutierrez MD [address] [place] [address] PCP - General INTERNAL MEDICINE 05/22/18 Eri Serna MD [address] [place] [address] ENDOCRINOLOGY 05/22/18 documented as of this encounter
--- OUTSIDE RECORDS SUMMARY | 2024-02-12 03:44 | XMS_ITS | Encounter Summary ---
Author Organization [facility] Address [address] [place] [address]. [place] [address] [place] [address] Care Team Providers Care Academic Affairs Dean Name Role Phone Anette Gutierrez MD Primary Care Provider [phone] Eri Serna MD Unavailable [phone] Reason for Visit * Reason Comments Colonoscopy Report (SCAN) Encounter Details Date Type Department Care Team ([facility] Contact Info) Description 07/28/2013 Scan HEALTH INFO SRVCS Scanned, Documents Colonoscopy Report (SCAN) Social History Tobacco Use Types Packs/Day Years Used Date Smoking Tobacco: Never Assessed Comments Unknown Sex and Gender Information Value Date Recorded Sex Assigned at Not on file 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 Sex Female 9:37 PM MEDICAL RECORD CLERK Gender Identity Not on file Sexual [...] Comments COLONOSCOPY GENERIC (SCAN ORDER) Routine 07/28/2013 12:00 AM CDT documented in this encounter Results * COLONOSCOPY (07/28/2013 12:00 AM CDT) 07/28/2013 us Documents Scanned SCANNING Final Result [facility] documented in this encounter Visit Diagnoses Not on filedocumented in this encounter Care Teams Academic Affairs Dean Relationship Specialty Start Date End Date Anette Gutierrez MD [address] [place] [address] PCP - General INTERNAL MEDICINE 05/22/18 Eri Serna MD [address] [place] [address] ENDOCRINOLOGY 05/22/18 documented as of this encounter
--- OUTSIDE RECORDS SUMMARY | 2024-02-12 03:44 | XMS_ITS | Encounter Summary ---
Author Organization [facility] Address [address] [place] [address]. [place] [address] [place] [address] Care Team Providers Care Counter Supply Worker Name Role Phone Unavailable Primary Care Provider Unavailabl e Encounter Details Date Type Department Care Team (Latest Contact Info) Description 11/02/2014 Abstract [facility] Medical Group Eri Serna MD [address] [place] [address] Social History Tobacco Use Types Packs/Day Years Used Date Smoking Tobacco: Never Assessed Comments Unknown Sex and Gender Information Value Date Recorded Sex Assigned at Not on file Legal Sex Female 9:37 PM LEGAL COUNSEL Gender Identity Not on file Sexual Orientation Not on file documented as of this encounter Plan of Treatment Not on file documented as of this encounter Procedures Procedure Name Priority Date/Time Associated Diagnosis Comments US GD THYROID FINE NDL ASPIR Routine 11/02/2014 3:26 PM CDT documented in this encounter Results * US GD THYROID FINE NDL ASPIR (11/02/2014 3:26 PM CDT) Anatomical Region Laterality Modality Neck Ultrasound 11/02/2014 3:26 PM CDT 11/02/2014 3:26 PM CDT Narrative 11/02/2014 3:29 PM CDT [facility] ?? [place], [place] ?? Department of Radiology ? MARTIN ISABEL Ordering MD: ERI SERNA MD ?? Acct: [id number] ?? : 1960 Pt Type: REG CLI ?? Sex: F Ord Site: MAIN ? Study Date Accession # Procedure Code Procedure ?? 11/02/14 [id number] THYFNABX US Biopsy Thyroid FNA ? Signed ? ULTRASOUND GUIDED THYROID BIOPSY OF AN LEFT THYROID NODULE: 11/02/2014 3:26 PM ? HISTORY: ??54 years old Female with previous ultrasound imaging showing a left thyroid nodule. ? FNA is requested for diagnostic purposes. ? PROCEDURALISTS: Mi Tavarez MD ? MEDICATIONS: ??1% Lidocaine ? TECHNIQUE AND FINDINGS: ? Informed consent was obtainedfrom the patient. ??An official time out was performed. ? Preliminary ultrasound revealed a leftproximally 1.5 cm ovoid hypoechoic thyroid nodule within ?? the thyroid gland near the isthmus. ??The patient was prepped and draped in a sterile fashion. ? The vascular structures were identified. ??The neck was anesthetized with lidocaine. ??Under ?? ultrasound guidance, a 25 gauge needle was used to obtain 6 samples. ??The patient tolerated ?? the procedure well with no intra procedural complications noted. ? IMPRESSION: ? Ultrasound guided Biopsy ??(FNA) of a left thyroid nodule. ? Electronically Signed By: MI TAVAREZ MD 11/02/14 1527 ? Dictated On: 11/02/14 1526 ?? Interpreted By: MI TAVAREZ MD ?? Transcribed On: 11/02/14 1526 - INF[facility] ? CC: ? ERI SERNA MD ?? NO,PRIMARY CARE PHYS Procedure Note Bebeto Menon MD - 12/05/2017 [place], [place] Department of Radiology MARTIN ISABEL MD: ERI SERNA MD Acct: [id number] : 1960 Pt Type: REG CLI Sex: F Ord Site: MAIN Study Date Accession # Procedure Code Procedure 11/02/14 [id number] THYFNABX US Biopsy Thyroid FNA Signed ULTRASOUND GUIDED THYROID BIOPSY OF AN LEFT THYROID NODULE: 11/02/2014 3:26PM HISTORY: 54 years old Female with previous ultrasound imaging showing aleft thyroid nodule. FNA is requested for diagnostic purposes. PROCEDURALISTS: Mi Tavarez MD MEDICATIONS: 1% Lidocaine TECHNIQUE AND FINDINGS: Informed consent was obtainedfrom the patient. An official time out wasperformed. Preliminary ultrasound revealed a leftproximally 1.5 cm ovoid hypoechoicthyroid nodule within the thyroid gland near the isthmus. The patient was prepped and drapedin a sterile fashion. The vascular structures were identified. The neck was anesthetized withlidocaine. Under ultrasound guidance, a 25 gauge needle was used to obtain 6 samples. Thepatient tolerated the procedure well with no intra procedural complications noted. IMPRESSION: Ultrasound guided Biopsy (FNA) of a left thyroid nodule. Electronically Signed By: MI TAVAREZ MD 11/02/14 1527 Dictated On: 11/02/14 1526 Interpreted By: MI TAVAREZ MD Transcribed On: 11/02/14 1526 - [facility] CC: ERI SERNA MD NO,PRIMARY CARE PHYS us Eri Serna MD ULTRASOUND Final Re sult documented in this encounter Visit Diagnoses Not on filedocumented in this encounter
--- OUTSIDE RECORDS SUMMARY | 2024-02-12 03:44 | XMS_ITS | Encounter Summary ---
Author Organization [facility] Address [address] [place] [address]. [place] [address] [place] [address] Care Team Providers Care Manager Epic Name Role Phone Unavailable Primary Care Provider Unavailabl e Encounter Details Date Type Department Care Team (Late st Contact Info) Description 10/09/[address] [place], [place] [address] Eri Serna MD [address] [place], [place] [address] Social History Tobacco Use Types Packs/Day Years Used Date Smoking Tobacco: Never Assessed Comments Unknown Sex and Gender Information Value Date Recorded Sex Assigned at Not on file Legal Sex Female 9:37 PM CONCAVER Gender Identity Not on file Sexual Orientation Not on file documented as of this encounter Plan of Treatment Not on file documented as of this encounter Visit Diagnoses Diagnosis Nontoxic multinodular goiter documented in this encounter
--- OUTSIDE RECORDS SUMMARY | 2024-02-12 03:44 | XMS_ITS | Encounter Summary ---
Author Organization [facility] Address [address] [place] [address]. 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
--- OUTSIDE RECORDS SUMMARY | 2024-02-12 03:44 | XMS_ITS | Encounter Summary ---
Author Organization [facility] Address [address] [place] [address]. 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 Signatures Electronically signed by : Aline Guardado L.P.N.; May 30 2016 8:24AM PAPER MACHINE OPERATOR (Author) documented in this encounter Plan of Treatment Not on file documented as of this encounter Visit Diagnoses Not on filedocumented in this encounter
--- OUTSIDE RECORDS SUMMARY | 2024-02-12 03:44 | XMS_ITS | Encounter Summary ---
Author Organization [facility] Address [address] [place] [address]. 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
--- OUTSIDE RECORDS SUMMARY | 2024-02-12 03:44 | XMS_ITS | Encounter Summary ---
Author Organization [facility] Address [address] [place] [address]. [place] [address] [place] [address] Care Team Providers Care Gas Meter Repairer Name Role Phone Unavailable Primary Care Provider Unavailabl e Encounter Details Date Type Department Care Team (Late st Contact Info) Description 12/19/2012 Abstract [facility] Medical Group Diabetes and Endocrinology - [address] [phone] Eri Serna MD [address] [place] [address] Social History Tobacco Use Types Packs/Day Years Used Date Smoking Tobacco: Never Assessed Comments Unknown Sex and Gender Information Value Date Recorded Sex Assigned at Not on file Legal Sex Female 9:37 PM ICU NURSE Gender Identity Not on file Sexual Orientation Not on file documented as of this encounter Last Filed Vital Signs Vital Sign Reading Time Taken Comments Blood Pressure 150/68 12/19/2012 2:56 PM ICU NURSE Pulse - - Temperature - - Respiratory Rate - - Oxygen Saturation - - Inhaled Oxygen Concentration - - Weight 99.1 kg (218 lb 6.1 oz) 12/19/2012 2:56 P M ICU NURSE Height 162.6 cm (5' 4 ) 12/19/2012 2:56 PM ICU NURSE Body Mass Index 37.48 12/19/2012 2:56 PM ICU NURSE documented in this encounter Progress Notes * Eri Serna MD - 12/19/2012 2:40 PM CST Reason For Visit Hypothyroidism History of Present Illness HPI: She has had hyperthyroidism and had HERNANDEZ in 1993 since then she is hypothyroid and on medications. Hypothyroidism (Follow-Up): The patient is being seen for follow-up of post- ablation hypothyroidism. She is having symptoms of menopause. The patient reports doing well. She has [...] free T4. Review of Systems Complete-Female: Constitutional: no fever, no chills and no fatigue. Head and Face: negative. Eyes: negative. ENT: negative. Active Problems 1. Fibromyalgia 729.1 2. Hyperlipidemia 272.4 3. Hypothyroidism 244.9 4. Itching (Pruritus) 698.9 5. 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 History of Hypothyroidism Post Radio-iodine Treatment E932.8 Surgical History 1. History of Section 2. History of Dental Surgery Family History 1. Maternal history of Colon Cancer V16.0 2. Family history of Cancer 3. Family history of Diabetes Mellitus V18.0 4. Family history of Heart Disease V17.49 Social History ?? Never A Smoker ?? Never Drank Alcohol Current Meds 1. [place] Thyroid 180 MG Oral Tablet; TAKE ONE TABLET BY MOUTH EVERY DAY. Patient needs to make a follow-up appointment for additional refills; Therapy: 05Aug2012 to (Evaluate:17Feb2013) Requested for: 19Nov2012; Last Rx:19Nov2012 Ordered; For: Hypothyroidism (244.9); Rx By: Eri Serna; Dispense: 30 Days ; #:30 EA; Refill: 2; Verified Transmission to [facility] 4554; Last Updated By: Sigrid Gooden 2. Multivitamins TABS; TAKE 1 TABLET DAILY; Therapy: (Recorded:[id number]) to Recorded; For: Health Maintenance (V70.0); Dispense: 0 Days ; #: Sufficient Tablet; Refill: 0; Record; Last Updated By: Karen Baum 3. TraMADol HCl ER 300 MG Oral Tablet Extended Release 24 Hour; TAKE 1 TABLET DAILY; Therapy: [id number] to Recorded; Dispense: 0 Days ; #: Sufficient Tablet Extended Release 24 Hour; Refill: 0; Record; LastUpdated By: Connie Yusuf 4. Ursodiol 500 MG Oral Tablet; TAKE 1 TABLET 3 TIMES DAILY WITH MEALS; Therapy: (Recorded:11Dec2011) to Recorded; For: Primary Biliary Cirrhosis (571.6); Dispense: 0 Days ; #: Sufficient Tablet; Refill: 0; Record; Last Updated By: Connie Yusuf 5. Vitamin B12 TABS; TAKE 1 TABLET DAILY DIRECTED; Therapy: (Recorded:19Dec2012) to Recorded; For: Health Maintenance (V70.0); Dispense: 0 Days ; #: Sufficient Tablet; Refill: 0; Record; Last Updated By: Connie Yusuf 6. Vitamin D TABS; Take as directed; Therapy: (Recorded:09Sep2011) to Recorded; For: Health Maintenance (V70.0); Dispense: 0 Days ; #: Sufficient Tablet; Refill: 0; Record; Last Updated By: Karen Baum 7. ZyrTEC Allergy 10 MG Oral Tablet; TAKE 1 TABLET AT BEDTIME; Therapy: (Recorded:19Dec2012) to Recorded; For: Itching (Pruritus) (698.9); Dispense: 0 Days ; #: Sufficient Tablet; Refill: 0; Record; Last Updated By: Connie Yusuf Allergies 1. No Known Drug Allergies No Known Drug Allergies Vitals Vital Signs [Data Includes: Current Encounter] 19Dec2012 02:56PM Systolic 150 Diastolic 68 BMI Calculated 37.28 BSA Calculated 2.03 Height 5 ft 4 in Weight 218 lb 6 oz Physical Exam Constitutional General appearance: No acute distress, well appearing and well nourished. Head and Face Head and face: Normal. Eyes Conjunctiva and lids: No swelling, erythema or discharge. Ears, Nose, Mouth, and Throat External inspection of ears and nose: Normal. Nasal mucosa, septum, and turbinates: Normal without edema or erythema. Neck Neck: Supple, symmetric, trachea midline, no masses. Thyroid: Abnormal. The thyroid had a rubbery consistency. Pulmonary Respiratory effort: No increased work of breathing or signs of respiratory distress. Auscultation of lungs: Clear to auscultation. Cardiovascular Auscultation of heart: Normal rate and rhythm, normal S1 and S2, no murmurs. Musculoskeletal Gait and station: Normal. Muscle strength/tone: Normal. Skin Skin and subcutaneous tissue: Normal without rashes or lesions. Psychiatric Judgment and insight: Normal. Mood and affect: Normal. Assessment 1. Hyperlipidemia 272.4 2. Hypothyroidism 244.9 Plan 1. Free T4 (Thyroxine) Requested for: Approx 19Dec2012 Ordered; For: Hypothyroidism (244.9); Ordered By: Eri Serna Perform: Other Lab; Last Updated By: Connie Yusuf 2. TSH (Thyroid Stim Hormone) Requested for: Approx 19Dec2012 Ordered; For: Hypothyroidism (244.9); Ordered By: Eri Serna Perform: Other Lab; Last Updated By: Connie Yusuf Discussion/Summary Discussion Summary: I have convinced her to switch to synthroid . Will get BW and then decide if her dose needs to be changed. Clinically euthyroid but has fibromyalgia so it is hard to differenciate her symptoms. Signatures Electronically signed by : Eri Serna M.D.; Dec 19 2012 3:24PM (Author) NURSE documented in this encounter Plan of Treatment Not on file documented as of this encounter Procedures Procedure Name Priority Date/Time Associated Diagnosis Comments THYROXINE, FREE (FT4) Routine 12/20/2012 12:05 PM ICU NURSE THYROID STIM HORMONE TSH Routine 12/20/2012 12:05 PM ICU NURSE documented in this encounter Results * THYROID STIM HORMONE, TSH (12/20/2012 12:05 PM ICU NURSE) TSH 4.06 0.35 - 4.94 mcIU/mL [facility] TO [employer] CONVERSION 12/20/2012 12:0 5 PM ICU NURSE 12/20/2012 12:05 PM ICU NURSE Narrative [facility] TO EP[facility] CONVERSION - 12/20/2012 1:45 PM ICU NURSE Result Communication: No patient communication needed at this time us Eri Serna MD LABORATORY Final Re sult [facility] TO EP[facility] CONVERSION * (ABNORMAL) THYROXINE, FREE (FT4) (12/20/2012 12:05 PM ICU NURSE) FREE T4 0.7(L) 0.9 - 1.5 ng/dL [facility] TO EP[facility] CONVERSION 12/20/2012 12:0 5 PM ICU NURSE 12/20/2012 12:05 PM ICU NURSE Narrative [facility] TO EPIC CONVERSION - 12/20/2012 1:45 PM ICU NURSE Result Communication: No patient communication needed at this time us Eri Serna MD LABORATORY Final Re sult [facility] TO EPIC CONVERSION documented in this encounter Visit Diagnoses Not on filedocumented in this encounter
--- OUTSIDE RECORDS SUMMARY | 2024-02-12 03:44 | XMS_ITS | Encounter Summary ---
Author Organization [facility] Address [address] [place] [address]. [place] [address] [place] [address] Care Team Providers Care Licensed Loan Officer Name Role Phone Unavailable Primary Care Provider Unavailabl e Encounter Details Date Type Department Care Team (Late st Contact Info) Description 07/08/2010 Abstract [facility] Medical Group Diabetes and Endocrinology - [place] [address] [place] [phone] Devan Riley MD [address] [place] [address] [address] [place] [address] Social History Tobacco Use Types Packs/Day Years Used Date Smoking Tobacco: Never Assessed Comments Unknown Sex and Gender Information Value Date Recorded Sex Assigned at Not on file Legal Sex Female 9:37 PM ARTIFICIAL BREAST FABRICATOR Gender Identity Not on file Sexual Orientation Not on file documented as of this encounter Plan of Treatment Not on file documented as of this encounter Visit Diagnoses Not on filedocumented in this encounter
--- OUTSIDE RECORDS SUMMARY | 2024-02-12 03:44 | XMS_ITS | Encounter Summary ---
Author Organization [facility] Address [address] [place] [address]. [place] [address] [place] [address] Care Team Providers Care Cattle Producers Name Role Phone Unavailable Primary Care Provider Unavailabl e Encounter Details Date Type Department Care Team (Late st Contact Info) Description 05/29/[address] [place], [place] [address] Anette Gutierrez MD [address] [place] [address] Social History Tobacco Use Types Packs/Day Years Used Date Smoking Tobacco: Never Assessed Comments Unknown Sex and Gender Information Value Date Recorded Sex Assigned at Not on file Legal Sex Female 9:37 PM TIMBER BUYER Gender Identity Not on file Sexual Orientation Not on file documented as of this encounter Plan of Treatment Not on file documented as of this encounter Visit Diagnoses Diagnosis Breast lump Lump or mass in breast documented in this encounter
--- OUTSIDE RECORDS SUMMARY | 2024-02-12 03:44 | XMS_ITS | Encounter Summary ---
Author Organization [facility] Address [address] [place] [address]. [place] [address] [place] [address] Care Team Providers Care Vein Pumper Name Role Phone Unavailable Primary Care Provider Unavailabl e Encounter Details Date Type Department Care Team (Latest Contact Info) Description 09/17/2014 Abstract [facility] Medical Group Social History Tobacco Use Types Packs/Day Years Used Date Smoking Tobacco: Never Assessed Comments Unknown Sex and Gender Information Value Date Recorded Sex Assigned at Not on file Legal Sex Female 9:37 PM GAS TREATER Gender Identity Not on file Sexual Orientation Not on file documented as of this encounter Plan of Treatment Not on file documented as of this encounter Procedures Procedure Name Priority Date/Time Associated Diagnosis Comments THYROXINE, FREE (FT4) Routine 09/30/2014 12:22 PM CDT THYROID STIM HORMONE TSH Routine 09/30/2014 12:22 PM CDT documented in this encounter Results * THYROID STIM HORMONE, TSH (09/30/2014 12:22 PM CDT) TSH 0.76 0.35 - 4.94 mcIU/mL [facility] TO [facility] CONVERSION 09/30/2014 12:2 2 PM CDT 09/30/2014 12:22 PM CDT Narrative [facility] TO EP[facility] CONVERSION - 09/30/2014 8:01 PM CDT Result Communication: No patient communication needed at this time Eri Serna MD LABORATORY Final Re sult [facility] TO EP[facility] CONVERSION * THYROXINE, FREE (FT4) (09/30/2014 12:22 PM CDT) FREE T4 1.4 0.9 - 1.5 ng/dL [facility] TO EP[facility] CONVERSION 09/30/2014 12:2 2 PM CDT 09/30/2014 12:22 PM CDT Narrative [facility] TO EP[facility] CONVERSION - 09/30/2014 8:01 PM CDT Result Communication: No patient communication needed at this time us Eri Serna MD LABORATORY Final Re sult [facility] TO EPIC CONVERSION documented in this encounter Visit Diagnoses Not on filedocumented in this encounter
--- OUTSIDE RECORDS SUMMARY | 2024-02-12 03:44 | XMS_ITS | Encounter Summary ---
Author Organization [facility] Address [address] [place] [address]. [place] [address] [place] [address] Care Team Providers Care Clay Stain Mixer Name Role Phone Unavailable Primary Care Provider Unavailabl e Encounter Details Date Type Department Care Team (Late st Contact Info) Description 02/19/2014 Abstract [facility] Medical Group Diabetes and Endocrinology - [address] [phone] Eri Serna MD [address] [place] [id number] Social History Tobacco Use Types Packs/Day Years Used Date Smoking Tobacco: Never Assessed Comments Unknown Sex and Gender Information Value Date Recorded Sex Assigned at Not on file Legal Sex Female 9:37 PM LIBRARY CLERK TALKING BOOKS Gender Identity Not on file Sexual Orientation Not on file documented as of this encounter Last Filed Vital Signs Vital Sign Reading Time Taken Comments Blood Pressure 142/68 02/19/2014 12:06 PM LIBRARY CLERK TALKING BOOKS Pulse 60 02/19/2014 12:06 PM LIBRARY CLERK TALKING BOOKS Temperature - - Respiratory Rate - - Oxygen Saturation - - Inhaled Oxygen Concentration - - Weight 98.7 kg (217 lb 8 oz) 02/19/2014 12:06 PM LIBRARY CLERK TALKING BOOKS Height 162.6 cm (5' 4 ) 02/19/2014 12:06 PM LIBRARY CLERK TALKING BOOKS Body Mass Index 37.33 02/19/2014 12:06 PM LIBRARY CLERK TALKING BOOKS documented in this encounter Progress Notes * Eri Serna MD - 02/19/2014 11:40 AM CST History of Present Illness HPI: She has had hyperthyroidism and had HERNANDEZ in 1993 since then she is hypothyroid and on medications. Hypothyroidism (Follow-Up): The patient reports doing well. She feels that since her last visit here which was about a year ago when I had switched her from [place] thyroid to Synthroid she has been having problems with headaches, palpitations at night and swelling in her feet. She feels that this is related to Synthroid as she did not have this when she was taking [place] thyroid. She says her BP is good when she sees Drs and does not test it otherwise. She has a new position at work and is morestressful than before. Interval symptoms: denies weight gain, denies cold [...] free T4. Review of Systems Complete-Female: Constitutional: fatigue. Eyes: no eye pain and eyes not red. Cardiovascular: lower extremity edema and palpitations, but no chest pain. Respiratory: no shortness of breath and no cough. Gastrointestinal: no abdominal pain, no nausea, no constipation, no vomiting and no diarrhea. Genitourinary: no dysuria and no urinary frequency. Active Problems 1. Fibromyalgia (729.1) (M79.7) 2. Hyperlipidemia (272.4) (E78.5) 3. Hypothyroidism (244.9) (E03.9) 4. Itching (698.9) (L29.9) 5. Primary biliary cirrhosis (571.6) (K74.3) Past Medical History 1. History of Hypothyroidism [...] Multivitamins TABS; TAKE 1 TABLET DAILY; Therapy: (Recorded:[id number]) to Recorded Dispense: 0 Days ; #: Sufficient Tablet; Refill: 0; For: Health Maintenance; ROULA = N; Record; Last Updated By: Karen Baum; 09/09/2011 12:36:20 PM 2. Synthroid 200 MCG Oral Tablet; TAKE ONE TABLET BY MOUTH ONCE DAILY; Therapy: 23Dec2012 to (Evaluate:20Apr2014) Requested for: [id number]; Last Rx:[id number] Ordered Rx By: Eri Serna; Dispense: 90 Days ; #:90 Tablet; Refill: 0; For: Hypothyroidism; ROULA =Y; Verified Transmission to [facility] 8215; Last Updated By: Zen Schultz; 01/20/2014 3:44:35 PM 3. TraMADol HCl ER 300 MG Oral Tablet Extended Release 24 Hour; TAKE 1 TABLET DAILY; Therapy: 24Aug2011 to Recorded Dispense: 0 Days ; #: Sufficient Tablet Extended Release 24 Hour; Refill: 0; ROULA = N; Record; Last Updated By: Connie Yusuf; 12/11/2011 2:06:54 PM 4. Ursodiol 500 MG Oral Tablet; TAKE 1 TABLET 3 TIMES DAILY WITH MEALS; Therapy: (Recorded:11Dec2011) to Recorded Dispense: 0 Days ; #: Sufficient Tablet; Refill: 0; For: Primary biliary cirrhosis; ROULA = N; Record; Last Updated By: Connie Yusuf; 12/11/2011 2:29:30 PM 5. Vitamin B12 TABS; TAKE 1 TABLET DAILY DIRECTED; Therapy: (Recorded:19Dec2012) to Recorded Dispense: 0 Days ; #: Sufficient Tablet; Refill: 0; For: Health Maintenance; ROULA = N; Record; Last Updated By: Connie Yusuf; 12/19/2012 3:00:55 PM 6. Vitamin D3 2000 UNIT Oral [...] By: Karen Baum; 09/06/2011 8:34:12 AM Vitals Vital Signs [Data Includes: Current Encounter] Recorded by : Erendira Gunn at 19Feb2014 12:06PM Heart Rate 60 Systolic 142 Diastolic 68 O2 Saturation 98 Height 5 ft 4 in Weight 217 lb 8 oz BMI Calculated 37.33 BSA Calculated 2.03 Physical Exam Constitutional General appearance: No acute [...] affect: Normal. Assessment 1. Hypothyroidism (244.9) (E03.9) Plan 1. Free T4 (Thyroxine) Status: In Progress - Specimen/Data Collected Done: Before 19Feb2014 Perform: Other Lab Order Comments: PLEASE FAX RESULTS TO [phone]. Due: 26Feb2014; Last UpdatedBy: Erendira Gunn; 02/19/2014 12:37:00 PM; Ordered; For: Hypothyroidism; Ordered By: Eri Serna 2. TSH (Thyroid Stim Hormone) Status: In Progress - Specimen/Data Collected Done: Before 19Feb2014 Perform: Other Lab Order Comments: PLEASE FAX RESULTS TO [phone]. Due: [id number]; Last UpdatedBy: Erendira Gunn; 02/19/2014 12:37:00 PM; Ordered; For: Hypothyroidism; Ordered By: Eri Serna Discussion/Summary Discussion Summary: Clinically euthyroid. I am not sure if her symptoms are related to her thyroid hormone. I will get her TSH and free T4 today and if her TSH is suppressed then I will decrease the dose of her Synthroid but if it is normal, I will plan to switch her to Tirosint or Levoxyl. She marshall shave fibromyalgia and feels that she has reaction to vending machine filler the medicine and switching to a different brand may help. I will also check her A1c as it was 5.9% in 2012 which makes her a prediabetic. mailed notes to Dr Delfina Lawrence-no longer on EHR list for [facility] Signatures Electronically signed by : Eri Serna M.D.; Mar 04 2014 4:05PM LIBRARY CLERK TALKING BOOKS (Author) documented in this encounter Plan of Treatment Not on file documented as of this encounter Procedures Procedure Name Priority Date/Time Associated Diagnosis Comments COMPREHENSIVE METABOLIC PANEL Routine 02/19/2014 1:16 PM LIBRARY CLERK TALKING BOOKS documented in this encounter Results * COMPREHENSIVE METABOLIC PANEL (02/19/2014 1:16 PM LIBRARY CLERK TALKING BOOKS) SODIUM S/P/B Cancelled by lab specimen never released 135 - 147 mmol/L [facility] TO [facility] CONVERSION POTASSIUM S/P/B Cancelled by lab specimen never released 3.5 - 5.0 mmol/L [facility] TO EPIC CONVERSION CHLORIDE S/P/B Cancelled by lab specimen never released 96 - 107 mmol/L [facility] TO EPIC CONVERSION CO2 Cancelled by lab specimen never released 24 - 32 mmol/L [facility] TO EPIC CONVERSION GLUCOSE Cancelled by lab specimen never released 70 - 109 mg/dL [facility] TO EPIC CONVERSION BUN Cancelled by lab specimen never released 10 - 25 mg/dL [facility] TO EPIC CONVERSION CREATININE S/P/B Cancelled by lab specimen never released 0.6 - 1.1 mg/dL [facility] TO EPIC CONVERSION CALCIUM S/P/B Cancelled by lab specimen never released 8.4 - 10.5 mg/dL [facility] TO EPIC CONVERSION BILIRUBIN TOTAL S/P/B Cancelled by lab specimen never released 0.2 - 1.2 mg/dL [facility] TO EPIC CONVERSION ALKALINE PHOSPHATASE S/P/B Cancelled by lab specimen never released 41 - 108 U/L [facility] TO EPIC CONVERSION AST Cancelled by lab specimen never released 0 - 40 U/L [facility] TO EPIC CONVERSION ALT Cancelled by lab specimen never released 0 - 40 U/L [facility] TO EPIC CONVERSION TOTAL PROTEIN S/P/B Cancelled by lab specimen never released 6.0 - 8.3 g/dL [facility] TO EPIC CONVERSION ALBUMIN S/P/B Cancelled by lab specimen never released 3.4 - 4.9 g/dL [facility] TO EPIC CONVERSION ANION GAP Cancelled by lab specimen never released 4 - 16 [facility] TO [facility] CONVERSION OSMOLALITY (CALC) Cancelled by lab specimen never released 262 - 286 mOsm/kg [facility] TO EPIC CONVERSION EGFR NON-AFR. AMER. Cancelled by lab specimen never released >60 mL/min/1. 73sq.m [facility] TO EPIC CONVERSION EGFR AFR. AMER. Cancelled by lab specimen never released >60 mL/min/1. 73sq.m [facility] TO EPIC CONVERSION GFR NOTES Cancelled by lab specimen never released [facility] TO EPIC CONVERSION 02/19/2014 1:16 PM LIBRARY CLERK TALKING BOOKS 02/19/2014 1:16 PM LIBRARY CLERK TALKING BOOKS Narrative [facility] TO EPIC CONVERSION - 03/04/2014 4:37 AM LIBRARY CLERK TALKING BOOKS Result Communication: No patient communication needed at this time us Eri Serna MD LABORATORY Final Re sult [facility] TO EPIC CONVERSION documented in this encounter Visit Diagnoses Not on filedocumented in this encounter
--- OUTSIDE RECORDS SUMMARY | 2024-02-12 03:44 | XMS_ITS | Encounter Summary ---
Author Organization [facility] Address [address] [place] [address]. [place] [address] [place] [address] Care Team Providers Care Voucher Examiner Name Role Phone Unavailable Primary Care Provider Unavailabl e Encounter Details Date Type Department Care Team (Latest Contact Info) Description 07/28/2013 Abstract [facility] Medical [facility] Social History Tobacco Use Types Packs/Day Years Used Date Smoking Tobacco: Never Assessed Comments Unknown Sex and Gender Information Value Date Recorded Sex Assigned at Not on file Legal Sex Female 9:37 PM MEDICAL CARE EVALUATION SPECIALIST Gender Identity Not on file Sexual Orientation Not on file documented as of this encounter Plan of Treatment Not on file documented as of this encounter Visit Diagnoses Not on filedocumented in this encounter
--- OUTSIDE RECORDS SUMMARY | 2024-02-12 03:44 | XMS_ITS | Encounter Summary ---
Author Organization [facility] Address [address] [place] [address]. 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
--- OUTSIDE RECORDS SUMMARY | 2024-02-12 03:44 | XMS_ITS | Encounter Summary ---
Author Organization [facility] Address [address] [place] [address]. [place] [address] [place] [address] Care Team Providers Care Thermit Welding Machine Operator Name Role Phone Unavailable Primary Care Provider Unavailabl e Encounter Details Date Type Department Care Team (Latest Contact Info) Description 06/22/2015 Abstract [facility] Medical Group Social History Tobacco Use Types Packs/Day Years Used Date Smoking Tobacco: Never Assessed Comments Unknown Sex and Gender Information Value Date Recorded Sex Assigned at Not on file Legal Sex Female 9:37 PM ORDER MAKE UP CLERK Gender Identity Not on file Sexual Orientation Not on file documented as of this encounter Plan of Treatment Not on file documented as of this encounter Visit Diagnoses Not on filedocumented in this encounter
--- OUTSIDE RECORDS SUMMARY | 2024-02-12 03:44 | XMS_ITS | Encounter Summary ---
Author Organization [facility] Address [address] [place] [address]. [place] [address] [place] [address] Care Team Providers Care Rating Officer Name Role Phone Unavailable Primary Care Provider Unavailabl e Encounter Details Date Type Department Care Team (Latest Contact Info) Description 04/08/2015 Abstract [facility] Medical Group Social History Tobacco Use Types Packs/Day Years Used Date Smoking Tobacco: Never Assessed Comments Unknown Sex and Gender Information Value Date Recorded Sex Assigned at Not on file Legal Sex Female 9:37 PM SIGNAL TOWER DIRECTOR Gender Identity Not on file Sexual Orientation Not on file documented as of this encounter Plan of Treatment Not on file documented as of this encounter Visit Diagnoses Not on filedocumented in this encounter
--- OUTSIDE RECORDS SUMMARY | 2024-02-12 03:44 | XMS_ITS | Encounter Summary ---
Author Organization [facility] Address [address] [place] [address]. [place] [address] [place] [address] Care Team Providers Care Regional Planner Name Role Phone Unavailable Primary Care Provider Unavailabl e Encounter Details Date Type Department Care Team (Late st Contact Info) Description 02/19/2014 Abstract [facility] [address] [place] [address] Eri Serna MD [address] [place] [address] Social History Tobacco Use Types Packs/Day Years Used Date Smoking Tobacco: Never Assessed Comments Unknown Sex and Gender Information Value Date Recorded Sex Assigned at Not on file Legal Sex Female 9:37 PM PRODUCTION FLOATER Gender Identity Not on file Sexual Orientation Not on file documented as of this encounter Plan of Treatment Not on file documented as of this encounter Visit Diagnoses Diagnosis Examination Unspecified examination documented in this encounter
--- OUTSIDE RECORDS SUMMARY | 2024-02-12 03:44 | XMS_ITS | Encounter Summary ---
Author Organization [facility] Address [address] [place] [address]. 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
--- OUTSIDE RECORDS SUMMARY | 2024-02-12 03:44 | XMS_ITS | Encounter Summary ---
Author Organization [facility] Address [address] [place] [address]. [place] [address] [place] [address] Care Team Providers Care Psychology Clinician Name Role Phone Unavailable Primary Care Provider Unavailabl e Encounter Details Date Type Department Care Team (Late st Contact Info) Description 09/30/2014 Abstract [facility] Medical Group Diabetes and Endocrinology - [address] [phone] Eri Serna MD [address] [place] [address] Social History Tobacco Use Types Packs/Day Years Used Date Smoking Tobacco: Never Assessed Comments Unknown Sex and Gender Information Value Date Recorded Sex Assigned at Not on file 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 Sex Female 9:37 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 Gender Identity Not on file Sexual Orientation Not on file documented as of this encounter Last Filed Vital Signs Vital Sign Reading Time Taken Comments Blood Pressure 132/78 09/30/2014 12:16 PM CDT Pulse 61 09/30/2014 12:16 PM CDT Temperature - - Respiratory Rate - - Oxygen Saturation - - Inhaled Oxygen Concentration - - Weight 99.9 kg (220 lb 4 oz) 09/30/2014 12:16 PM CDT Height - - Body Mass Index 37.81 02/19/2014 12:06 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 documented in this encounter Progress Notes * Eri Serna MD - 09/30/2014 11:40 AM CDT History of Present Illness HPI: She has had hyperthyroidism and had HERNANDEZ in 1993 since then she is hypothyroid and on medications. Hypothyroidism (Follow-Up): The patient reports doing well. patient says that she has been feeling well on tirosint. She is not having any problems. She has been taking 100 mcg along with 88 mcg every day on empty stomach. She feels that she is having some hot flashes and night sweats. She feels this might be related to menopause. She still having some spotting every month.. Interval symptoms: denies weight gain, denies cold [...] hormone and free T4. Review of Systems Constitutional: no fever and no chills. Cardiovascular: no chest pain and no palpitations. Respiratory: no shortness of breath and no cough. Gastrointestinal: no abdominal pain, no nausea, no constipation, no vomiting and no diarrhea. Active Problems 1. Fibromyalgia (729.1) (M79.7) 2. [...] Multivitamins TABS; TAKE 1 TABLET DAILY; Therapy: (Recorded:[id number]) to Recorded Dispense: 0 Days ; #: Sufficient Tablet; Refill: 0; For: Health Maintenance; ROULA = N; Record; Last Updated By: Karen Baum; 09/09/2011 12:36:20 PM 2. Tirosint 100 MCG Oral Capsule; take 1 tab daily along with an 88 mcg tab daily; Therapy: 20Feb2014 to (Evaluate:20Ppw0074) Requested for: 00Pfm7021; Last Rx:[id number] Ordered Rx By: Eri Serna; Dispense: 30 Days ; #:30 Capsule; Refill: 3; For: Hypothyroidism; ROULA= N; Verified Transmission to [facility]; Last Updated By: Andreia [employer]; 07/08/2014 7:53:28 AM 3. Tirosint 88 MCG Oral Capsule; take 1 tab daily along with a 100 mcg tab daily; Therapy: 20Feb2014 to (Evaluate:32Erv4008) Requested for: 25Pfg6541; Last Rx:[id number] Ordered Rx By: Eri Serna; Dispense: 30 Days ; #:30 Capsule; Refill: 3; For: Hypothyroidism; ROULA= N; Verified Transmission to [facility]; Last Updated By: Andreia [employer]; 07/07/2014 7:59:34 AM 4. TraMADol HCl ER 300 MG Oral Tablet Extended Release 24 Hour; TAKE 1 TABLET DAILY; Therapy: 93Yni8409 to Recorded Dispense: 0 Days ; #: [...] Karen Baum; 09/06/2011 8:34:12 AM Vitals Recorded: 30Sep2014 12:16PM Heart Rate 61 Systolic 132 Diastolic 78 O2 Saturation 98 Weight 220 lb 4 oz BMI Calculated 37.81 BSA Calculated 2.04 Physical Exam Constitutional General appearance: No acute [...] (E03.9) 2. Goiter (240.9) (E04.9) Plan 1. Follow-up visit in 6 months Outpatient Follow-up Status: Hold For - Scheduling Requested for: 98Gev4485 Ordered; For: Hypothyroidism; Ordered By: Eri Serna Performed: Due: 14Oct2014 2. Free T4 (Thyroxine); Status:In Progress - Specimen/Data Collected; Done: Before 28Sep2014 Perform:[facility]; Order Comments:PLEASE FAX RESULTS TO [phone].; Due:64Shd2261; Last Updated By:Jared Mullen; 09/30/2014 12:23:06 PM;Ordered; For:Hypothyroidism; Ordered By:Eri Serna; 3. TSH (Thyroid Stim Hormone); Status:In Progress - Specimen/Data Collected; Done: Before 28Sep2014 Perform:[facility]; Order Comments:PLEASE FAX RESULTS TO [phone].; Last Updated By:Jared Mullen; 09/30/2014 12:23:07 PM;Ordered; For:Hypothyroidism; Ordered By:Eri Serna; Discussion/Summary Hypothyroidism- patient is clinically euthyroid.I will test her TSH and free T4 and if the decisionof the thyroid dose on this. Patient has been educated about the symptoms of hypothyroidism which is constipation , fatigue, cold intolerance and hair loss. Also educated about the symptoms of thyrotoxicosis which is palpitations, shakiness and increased sweating. Patient will call and let me know if having symptoms. I want her to talk to her SPRINKLER INSTALLER about spotting.. I feel that the thyroid is enlarged today mainly the right side. I will check TSH and free T4 and then plan an ultrasound of the thyroid to check on the enlarged right lobe of the thyroid. She has had radioactive iodine treatment 20 years ago. Signatures Electronically signed by : Eri Serna M.D.; Sep 30 2014 12:59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 (Author) documented in this encounter Plan of Treatment Not on file documented as of this encounter Visit Diagnoses Not on filedocumented in this encounter
--- OUTSIDE RECORDS SUMMARY | 2024-02-12 03:44 | XMS_ITS | Encounter Summary ---
Author Organization [facility] Address [address] [place] [address]. 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
--- OUTSIDE RECORDS SUMMARY | 2024-02-12 03:44 | XMS_ITS | Encounter Summary ---
Author Organization [facility] Address [address] [place] [address]. 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
--- OUTSIDE RECORDS SUMMARY | 2024-02-12 03:44 | XMS_ITS | Encounter Summary ---
Author Organization [facility] Address [address] [place] [address]. [place] [address] [place] [address] Care Team Providers Care Factory Helper Name Role Phone Unavailable Primary Care Provider Unavailabl e Encounter Details Date Type Department Care Team (Latest Contact Info) Description 02/20/2014 Abstract [facility] Medical Group , Generic ConversionMD Social History Tobacco Use Types Packs/Day Years Used Date Smoking Tobacco: Never Assessed Comments Unknown Sex and Gender Information Value Date Recorded Sex Assigned at Not on file Legal Sex Female 9:37 PM MANAGER JAVA Gender Identity Not on file Sexual Orientation Not on file documented as of this encounter Progress Notes * Generic Conversion MD Lynsey - 02/20/2014 3:49 PM CST Message Recorded as Task Date: 02/20/2014 03:05 PM, Created By: Eri Serna Task Name: Call Back Assigned To: [facility]Nurse Team Regarding Patient: Mary Isabelbrandi Munoz, Status: In Progress Comment: Eri Serna - 20 Feb 2014 3:05 PM TASK CREATED thyroid levels are slightly high which might be causing her symptoms. I want her to switch to tirosint at 188 mcg . Repeat TSH and free t4 in 8 weeks after the switch. Connie Yusuf - 20 Feb 2014 3:20 PM TASK EDITED Called patient and left message for her to return call. Connie Yusuf - 20 Feb 2014 3:20 PM TASK IN PROGRESS Connie Yusuf - 20 Feb 2014 3:52 PM TASK EDITED Talked to Mary about lab results and new orders. Order sent to [facility] and orders mailed to Mary to getlab work done 8 weeks after starting the Tirosint. Plan 1. Start: Tirosint 88 MCG Oral Capsule; take 1 tab daily along with a 100 mcg tab daily Signatures Electronically signed by : Connie Yusuf, ; Feb 20 2014 3:52PM MANAGER JAVA (Author) documented in this encounter Plan of Treatment Not on file documented as of this encounter Visit Diagnoses Not on filedocumented in this encounter
--- OUTSIDE RECORDS SUMMARY | 2024-02-12 03:44 | XMS_ITS | Encounter Summary ---
Author Organization [facility] Address [address] [place] [address]. [place] [address] [place] [address] Care Team Providers Care Mid Level Clinician Name Role Phone Unavailable Primary Care Provider Unavailabl e Encounter Details Date Type Department Care Team (Latest Contact Info) Description 05/29/2016 Abstract [facility] Medical Group Eri Serna MD [address] [place] [address] Social History Tobacco Use Types Packs/Day Years Used Date Smoking Tobacco: Never Assessed Comments Unknown Sex and Gender Information Value Date Recorded Sex Assigned at Not on file Legal Sex Female 9:37 PM TRAFFIC AGENT Gender Identity Not on file Sexual Orientation Not on file documented as of this encounter Plan of Treatment Not on file documented as of this encounter Procedures Procedure Name Priority Date/Time Associated Diagnosis Comments US THYROID Routine 05/29/2016 9:34 AM CDT documented in this encounter Results * US THYROID (05/29/2016 9:34 AM CDT) Anatomical Region Laterality Modality Neck Ultrasound 05/29/2016 9:34 AM CDT 05/29/2016 9:34 AM CDT Narrative 05/29/2016 9:[address] [facility] ?? [place], [place] ?? Department of Radiology ? MARTIN ISABEL Ordering MD: ERI SERNA MD ?? Acct: [id number] ?? : 1960 Pt Type: REG CLI ?? Sex: F Ord Site: RAD6 ? Study Date Accession # Procedure Code Procedure ?? 05/29/16 [id number] THYRD/PARA US Thyroid Parathyroid ? Signed ? Thyroid ultrasound: 05/29/2016 9:34 AM ? History: Isthmus nodule NODULE isthmus nodule biopsy 11/02/2014 ? Technique: Ultrasound of the thyroid is performed assessing gracia scale images and color flow. ? Comparison: X-ray 11/02/2014 ? Findings: ?? The right lobe of the thyroid measures 38 x 15 x 11 mm in craniocaudal, AP, and transverse ?? dimensions. Thyroid parenchyma is normal in echotexture and color flow.. Within the right lobe ?? inferiorly medially there is a small 4 mm hypoechoic nodule. ?The left lobe of the thyroid measures 31 x 13 x 13 mm in craniocaudal, AP, and transverse ?? dimensions. Thyroid parenchyma is normal in echotexture and color flow.. ?? There is stable ?? appearance of 2 well-circumscribed nodules measuring 5 and 9, without internal calcifications. ? The isthmus measures 4 mm in size which is normal. There is stable appearance of a isthmus ?? nodule measuring 8 x 6 x 7 mm. ? Impression: ?? Stable thyroid ultrasound, with no enlargement of known thyroid lobe lung nodules. ? Electronically Signed By: MI TAVAREZ MD 05/29/1638 ? Dictated On: 05/29/16933 ?? Interpreted By: MI TAVAREZ MD ?? Transcribed On: 05/29/16933 - [facility] ? CC: ? Procedure Note Bebeto Menon MD - 12/05/2017 [place], [place] Department of Radiology MARTIN ISABEL MD: ERI SERNA MD Acct: [id number] : 1960 Pt Type: REG CLI Sex: F Ord Site: RAD6 Study Date Accession # Procedure Code Procedure 05/29/16 [id number] THYRD/PARA US Thyroid Parathyroid Signed Thyroid ultrasound: 05/29/2016 9:34 AM History: Isthmus nodule NODULE isthmus nodule biopsy 11/02/2014 Technique: Ultrasound of the thyroid is performed assessing gracia scaleimages and color flow. Comparison: X-ray 11/02/2014 Findings: The right lobe of the thyroid measures 38 x 15 x 11 mm in craniocaudal,AP, and transverse dimensions. Thyroid parenchyma is normal in echotexture and color flow..Within the right lobe inferiorly medially there is a small 4 mm hypoechoic nodule. The left lobe of the thyroid measures 31 x 13 x 13 mm in craniocaudal,AP, and transverse dimensions. Thyroid parenchyma is normal in echotexture and color flow..There is stable appearance of 2 well-circumscribed nodules measuring 5 and 9, withoutinternal calcifications. The isthmus measures 4 mm in size which is normal. There is stableappearance of a isthmus nodule measuring 8 x 6 x 7 mm. Impression: Stable thyroid ultrasound, with no enlargement of known thyroid lobe lungnodules. Electronically Signed By: MI TAVAREZ MD 05/29/16937 Dictated On: 05/29/16933 Interpreted By: MI TAVAREZ MD Transcribed On: 05/29/16933 - [facility] CC: us Eri Serna MD ULTRASOUND Final Re sult documented in this encounter Visit Diagnoses Not on filedocumented in this encounter
--- OUTSIDE RECORDS SUMMARY | 2024-02-12 03:44 | XMS_ITS | Encounter Summary ---
Author Organization [facility] Address [address] [place] [address]. 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
--- OUTSIDE RECORDS SUMMARY | 2024-02-12 03:44 | XMS_ITS | Encounter Summary ---
Author Organization [facility] Address [address] [place] [address]. 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
--- OUTSIDE RECORDS SUMMARY | 2024-02-12 03:44 | XMS_ITS | Encounter Summary ---
Author Organization [facility] Address [address] [place] [address]. [place] [address] [place] [address] Care Team Providers Care New Vehicle Sales Consultant Name Role Phone Unavailable Primary Care Provider Unavailabl e Encounter Details Date Type Department Care Team (Late st Contact Info) Description 08/09/2005 Abstract [facility] [address] [place] [id number] [place] [address] [place] [address] [place], [place] [address] Social History Tobacco Use Types Packs/Day Years Used Date Smoking Tobacco: Never Assessed Comments Unknown Sex and Gender Information Value Date Recorded Sex Assigned at Not on file Legal Sex Female 9:37 PM MANAGER SOCIAL SERVICES Gender Identity Not on file Sexual Orientation Not on file documented as of this encounter Plan of Treatment Not on file documented as of this encounter Visit Diagnoses Not on filedocumented in this encounter
--- OUTSIDE RECORDS SUMMARY | 2024-02-12 03:44 | XMS_ITS | Encounter Summary ---
Author Organization [facility] Address [address] [place] [address]. 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 Connie Yusuf - 29 Feb 2012 4:30 PM TASK EDITED Called patient and informed her that her lab values are better and that there are no changes in hermedication at this time. Signatures Electronically signed by : Connie Yusuf, ; Feb 29 2012 4:31PM (Author) ERY SEAMSTRESS documented in this encounter Plan of Treatment Not on file documented as of this encounter Visit Diagnoses Not on filedocumented in this encounter
--- OUTSIDE RECORDS SUMMARY | 2024-02-12 03:44 | XMS_ITS | Encounter Summary ---
Author Organization [facility] Address [address] [place] [address]. 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
--- OUTSIDE RECORDS SUMMARY | 2024-02-12 03:44 | XMS_ITS | Encounter Summary ---
Author Organization [facility] Address [address] [place] [address]. 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 [place], [place] ?? Department of Radiology ? MARTIN ISABEL Ordering MD: ERI SERNA MD ?? Acct: [id number] ?? : 1960 Pt Type: REG CLI ?? Sex: F Ord Site: RAD6 ? Study Date Accession # Procedure Code Procedure ?? 10/09/14 [id number] THYRD/PARA US Thyroid Parathyroid ? Signed ? Examination: Ultrasound thyroid ? Exam time: 12:05 PM ? Clinical history: Hypothyroidism ? Comparison: None ? Technique: Longitudinal and transverse grayscale images of the thyroid gland. Color Doppler. ? Findings: Thyroid gland is relatively small and has somewhat inhomogeneous echogenicity in a ?? diffuse pattern. The right lobe measures 3.6 x 1.5 x 1.0 cm with the left lobe measuring 4.1 x ?? 1.5 x 1.2 cm. The isthmus is 2 mm in thickness. ? Along with a diffuse inhomogeneous echogenicity there our small ill-defined hypoechoic nodules ?? in the right lobe of thyroid measuring up to 9 mm in maximum diameter. This is an ?? indeterminate but relatively low suspicion partially cystic nodule. In the left lobe there are ?? also small ill-defined hypoechoic nodules the largest of which measures 1.5 cm in diameter. ?? The left lobe lesion has somewhat irregular margins and appears to have microcalcifications ?? associated making it somewhat more suspicious. No significant abnormal enlarged lymph nodes ?? are seen adjacent to the thyroid gland. Color Doppler demonstrates unremarkable blood flow to ?? the thyroid. ? IMPRESSION: ? 1. Relatively small inhomogeneous thyroid gland. This is not specific but can be seen as a ?? sequela of chronic thyroiditis in the hypothyroid patient. ?? 2. Small indeterminate hypoechoic nodules are seen in both right and left lobes of the thyroid ?? gland. However, in the left lobe there is a single nodule measuring up to 1.5 cm in diameter ?? which has somewhat irregular margins and appears to have microcalcifications. Correlation with ?? ultrasound-guided biopsy of this left lobe nodule would be recommended for further evaluation. ? Electronically Signed By: WYATT PRAKASH MD 10/09/14 1808 ? Dictated On: 10/09/141803 ?? Interpreted By: WYATT PRAKASH MD ?? Transcribed On: 10/09/141803 - INFCE ? CC: ? ERI SERNA MD ?? NO,PRIMARY CARE PHYS Procedure Note Bebeto Menon MD - 12/05/2017 [place], [place] Department of Radiology MARTIN ISABEL MD: ERI SERNA MD Acct: [id number] : 1960 Pt Type: REG CLI Sex: F Ord Site: RAD6 Study Date Accession # Procedure Code Procedure 10/09/14 [id number] THYRD/PARA US Thyroid Parathyroid Signed Examination: Ultrasound thyroid Exam time: 12:05 PM Clinical history: Hypothyroidism Comparison: None Technique: Longitudinal and transverse grayscale images of the thyroidgland. Color Doppler. Findings: Thyroid gland is relatively small and has somewhatinhomogeneous echogenicity in a diffuse pattern. The right lobe measures 3.6 x 1.5 x 1.0 cm with the leftlobe measuring 4.1 x 1.5 x 1.2 cm. The isthmus is 2 mm in thickness. Along with a diffuse inhomogeneous echogenicity there our smallill-defined hypoechoic nodules in the right lobe of thyroid measuring up to 9 mm in maximum diameter.This is an indeterminate but relatively low suspicion partially cystic nodule. Inthe left lobe there are also small ill-defined hypoechoic nodules the largest of which measures1.5 cm in diameter. The left lobe lesion has somewhat irregular margins and appears to havemicrocalcifications associated making it somewhat more suspicious. No significant abnormalenlarged lymph nodes are seen adjacent to the thyroid gland. Color Doppler demonstratesunremarkable blood flow to the thyroid. IMPRESSION: 1. Relatively small inhomogeneous thyroid gland. This is not specific butcan be seen as a sequela of chronic thyroiditis in the hypothyroid patient. 2. Small indeterminate hypoechoic nodules are seen in both right and leftlobes of the thyroid gland. However, in the left lobe there is a single nodule measuring up to1.5 cm in diameter which has somewhat irregular margins and appears to havemicrocalcifications. Correlation with ultrasound-guided biopsy of this left lobe nodule would be recommendedfor further evaluation. Electronically Signed By: WYATT PRAKASH MD 10/09/141807 Dictated On: 10/09/141803 Interpreted By: WYATT PRAKASH MD Transcribed On: 10/09/141803 - [facility] CC: ERI SERNA MD NO,PRIMARY CARE PHYS us Eri Serna MD ULTRASOUND Final Re sult documented in this encounter Visit Diagnoses Not on filedocumented in this encounter
--- OUTSIDE RECORDS SUMMARY | 2024-02-12 03:52 | XMS_ITS | Encounter Summary ---
Author Organization [facility] Address [address] [place] [address] Care Team Providers Care Ic Design Engineer Name Role Phone James Gentile MD Primary Care Provider + [phone] Reason for Referral * Consultation (Routine) - Closed Specialty Diagnoses / Procedures Referred By Contac t Referred To Contact Endocrinology Diagnoses Type 2 diabetes mellitus without complication, without long-term current use of insulin (CMS/HCC) (HCC) Acquired hypothyroidism James Gentile MD [address] [place] [id number] Phone: tel: fax: Michelle Chavez MD [address] [place] [address] Phone: tel: fax: Referral ID Status Reason Start Date Expiration Date V isits Requested Visits Authorized [id number] Closed Specialty Services Required 07/10/2023 08/08/2024 12 12 Question Answer Please select the performing region: [facility] (All Locations) [[id number]] To provider: MICHELLE CHAVEZ [[id number]] # of visits: 1 Reason for Visit * Reason Comments Follow-up Here today for neil LINARESuss meds and lab results Encounter Details Date Type Department Care Team ([facility] Contact Info) Description 07/10/2023 2:00 PM CDT Office Visit [facility] Primary Care [address] [phone] James Gentile MD [address] [place] [phone] Type 2 diabetes mellitus without complication, without long-term current use of insulin (CMS/HCC) (HCC) (Primary Dx); Acquired hypothyroidism; Low vitamin B12 level Social History Tobacco Use Types Packs/Day Years Used Date Smoking Tobacco: Never Smokeless Tobacco: Never Tobacco Cessation:Counseling Given: Not Answered AUDIT-C Answer Date Recorded Frequency of Alcohol Consumption Not on file 07/10/2023 Q2: How many drinks containi ng alcohol do you have on a typical day when you are drinking? Patient does not drink Frequency of Binge Drinking Not on file 06/13 PHQ-2 Answer Date Recorded PHQ-2 Total Score (If total score is 3 or more points, staff should administer the PHQ-9) 0 07/10/2023 Personal Safety Answer Date Recorded Have you ever been in or are you currently in a harmful physical or emotional relationship or is someone making you feel afraid or unsafe? Denies 05/01/2022 Comments No Sex and Gender Information Value Date Recorded Sex Assigned at Not on file Legal Sex Female 2:31 AM CDT Gender Identity Not on file Sexual Orientation Not on file documented as of this encounter Last Filed Vital Signs Vital Sign Reading Time Taken Comments Blood Pressure 130/68 07/10/2023 1:56 PM CDT Pulse 88 07/10/2023 1:56 PM CDT Temperature 36.4 ??C (97.5 ??F) 07/10/2023 1:56 PM CD T Respiratory Rate 18 07/10/2023 1:56 PM CDT Oxygen Saturation 99% 07/10/2023 1:56 PM CDT Inhaled Oxygen Concentration - - Weight 98 kg (216 lb) 07/10/2023 1:56 PM CDT Height 162.6 cm (5' 4 ) 07/10/2023 1:56 PM CDT Body Mass Index 37.08 07/10/2023 1:56 PM CDT documented in this encounter Ordered Prescriptions Prescription Sig Dispense Quantity Refills Last Filled Start Date End Date rosuvastatin (CRESTOR) 5 mg tablet Take 1 tablet (5 mg total) by mouth daily 30 tablet 07/10/2023 07/09/2024 tirzepatide (Mounjaro) 10 mg/0.5 mL pen injector Inject 10 mg under the skin every 7 days 2 mL 07/10/2023 01/16/2024 tirzepatide (Mounjaro) 10 mg/0.5 mL pen injector Inject 10 mg under the skin every 7 days 2 mL 07/10/2023 07/10/2023 documented in this encounter Progress Notes * James Gentile MD - 07/10/2023 2:00 PM CDT Images from the original note were not included. Todays Encounter Date: 07/10/2023 Last visit: 05/14/2023 All Appts with PCP recent/future) Next/future visit with Care Team Recent Visits Date Type Provider Dept 05/14/23 [facility] [place] [facility] 04/11/23 Office Visit James Gentile MD [facility] [place] [facility] 03/13/23 [facility] [place] [facility] Showing recent visits within past 180 days and meeting all other requirements Today's Visits Date Type Provider Dept 07/10/23 Office Visit James Gentile MD [facility] [place] [facility] Showing today's visits and meeting all other requirements Future Appointments No visits were found meeting these conditions. Showing future appointments within next 180 days and meeting all other requirements Future Appointments Date Time Provider Department Center 12/06/2023 1:40 PM Latrice Freedman NP [facility] Patient ID: Kimberly Isabel is a 63 y.o. female. Chief Complaint. Chief Complaint Patient presents with Follow-up Here today for FU, discuss meds and lab results Patient Care Team: James Gentile MD as PCP - General (Internal Medicine) HPI/ROS. Patient is a 63 y.o. female here for follow up on chronic conditions History obtained from patient Todays Encounter: 07/10/2023 Took statins in past Not exercsiing much. Only lost 1 pound in past month on mounjaro.7.5 Twice in last 3 weeks woke up with stomach ache.finally had diarrhea. Took nexium. Not sure if stomache bug due to daughter sick prior.better with nexium. Not sure what triggered. DM- 05/14/2023 Review of Systems: See HPI. 14 point ROS was discussed with the patient and is negative except as noted in the history of present illness. Past Social,Medical,family Hx: Past Medical History: Diagnosis Date Allergic Arthritis Autoimmune disease (CMS/HCC) (HCC) Diabetes mellitus (HCC) Essential (primary) hypertension 10/21/2020 Thyroid disease Past Surgical History: Procedure Laterality Date BREAST BIOPSY Left FL FLUORO GUIDED LUMBAR PUNCTURE Right 05/01/2022 Social History Tobacco Use Smoking status: Never Smokeless tobacco: Never Substance and Sexual Activity Drug use: Yes Types: Other Comment: CBD gummies Sexual activity: Not Currently Alcohol Use: Unknown (07/10/2023) AUDIT-C Frequency of Alcohol Consumption: Not on file Average Number of Drinks: Patient does not drink Frequency of Binge Drinking: Not on file Family History Problem Relation Age of Onset Cancer Mother Other (Cerebrial Hemmorage) Father Mountrail's disease Brother Current Medications and Allergies: Allergies Allergen Reactions Milnacipran Unknown Trazodone Unknown Vilazodone Unknown Outpatient Encounter Medications as of 07/10/2023 Medication Sig Dispense Refill cetirizine (ZyrTEC) 10 mg tablet Take 1 tablet (10 mg total) by mouth daily cholecalciferol (VITAMIN D-3) 25 mcg (1,000 unit) tablet Take 1 tablet (1,000 Units total) by mouthdaily clobetasoL (TEMOVATE) 0.05 % ointment Apply topically 2 (two) times a day 30 g 0 levothyroxine (SYNTHROID) 175 mcg tablet Take 1 tablet (175 mcg total) by mouth daily 90 tablet 4 multivitamin tablet Take 1 tablet by mouth daily ursodioL (GENOVEVA FORTE) 500 mg tablet TAKE 1 TABLET 3 TIMES A DAY 270 tablet 1 [DISCONTINUED] tirzepatide (MOUNJARO) 7.5 mg/0.5 mL pen injector Inject 7.5 mg under the skin every7 days 6 mL 1 tirzepatide (Mounjaro) 10 mg/0.5 mL pen injector Inject 10 mg under the skin every 7 days 2 mL 11 [DISCONTINUED] tirzepatide (Mounjaro) 10 mg/0.5 mL pen injector Inject 10 mg under the skin every 7days 2 mL 11 No facility-administered encounter medications on file as of 07/10/2023. Physical Exam: Constitutional: Body mass index is 37.08 kg/m??. Vitals: 07/10/23 1356 BP: 130/68 BP Location: Left arm Patient Position: Sitting Pulse: 88 Resp: 18 Temp: 36.4 ??C (97.5 ??F) SpO2: 99% Weight: 98 kg (216 lb) Height: 162.6 cm (5' 4 ) heart RRR and Lungs CTA Results/Data: Old records were reviewed. I have personally reviewed the below Data Results for orders placed or performed in visit on 07/10/23 Hepatic function panel Result Value Ref Range Bilirubin, total 0.6 0.1 - 1.2 mg/dL Bilirubin, direct <0.2 0.1 - 0.3 mg/dL Protein, pl 6.9 6.5 - 8.5 g/dL Albumin 4.0 3.5 - 5.0 g/dL Alk phos 166 (H) 40 - 130 Units/L ALT 17 7 - 45 Units/L AST 22 10 - 45 Units/L No results found. Diagnosis: 1. Type 2 diabetes mellitus without complication, without long-term current use of insulin (CMS/[facility]) (HCC) 2. Acquired hypothyroidism 3. Low vitamin B12 level Assessment/Plan DIAGNOSES/ASSESSMENT Diagnoses and all orders for this visit: Type 2 diabetes mellitus without complication, without long-term current use of insulin (CMS/HCC) (HCC) (E11.9) (Primary) - Ambulatory referral to Endocrinology; Future Acquired hypothyroidism (E03.9) - Ambulatory referral to Endocrinology; Future Low vitamin B12 level (R79.89) Other orders - tirzepatide (Mounjaro) 10 mg/0.5 mL pen injector; Inject 10 mg under the skin every 7 days 1. Diabetes-still not controlled. Hemoglobin A1c improving. Last checked in February 17.6 Increase monitor to 10 it will help with weight loss well. Due to transition to go ahead and refer patient to endocrinology backup 2. Hypothyroid- Controlled/stable. Continue current meds and plan 3. Hyperlipidemia-LDL significantly high at 190. Start statin. Given instructions 4. Obesity-may benefit from taking higher Mounjaro dose to help with weight loss No problem-specific Assessment & Plan notes found for this encounter. There are no Patient Instructions on file for this visit. PLAN & MEDICATION MANAGEMENT Orders Placed This Encounter Ambulatory referral to Endocrinology DISCONTD: tirzepatide (Mounjaro) 10 mg/0.5 mL pen injector tirzepatide (Mounjaro) 10 mg/0.5 mL pen injector Medication Management I have discontinued Kimberly Isabel's tirzepatide. I am also having her maintain her multivitamin, cholecalciferol, cetirizine, ursodioL, levothyroxine, clobetasoL, and Mounjaro. James Gentile MD documented in this encounter Plan of Treatment Scheduled Referrals Name Type Priority Associated Diagnoses Orde r Schedule Ambulatory referral to Endocrinology Outpatient Referral Routine Type 2 diabetes mellitus without complication, without long-term current use of insulin ([facility]) ([facility]) Acquired hypothyroidism Expected: 07/24/2023 (Approximate), Expires: 07/09/2024 documented as of this encounter Visit Diagnoses Diagnosis Type 2 diabetes mellitus without complication, without long-term current use of insulin (CMS/[facility]) (HCC)- Primary Acquired hypothyroidism Unspecified hypothyroidism Low vitamin B12 level documented in this encounter Discontinued Medications Medication Sig Discontinue Reason Start Date End Da te tirzepatide (MOUNJARO) 7.5 mg/0.5 mL pen injector Inject 7.5 mg under the skin every 7 days Therapy completed 04/11/2023 07/10/2023 tirzepatide (Mounjaro) 10 mg/0.5 mL pen injector Inject 10 mg under the skin every 7 days 07/10/2023 07/10/2023 documented as of this encounter Care Teams Ic Design Engineer Relationship Specialty Start Date End Date James Gentile MD [address] [place] [id number] PCP - General Internal Medicine 03/01/22 01/17/24 documented as of this encounter
--- OUTSIDE RECORDS SUMMARY | 2024-02-12 03:52 | XMS_ITS | Referral Summary ---
Author Organization [facility] [address] [place] [id number] Care Team Providers Care Business Liaison Officer Name Role Phone Yari Castellano MD Primary Care Provider [phone] Encounters Date Type Department Care Team Description 01/15/2024 Telephone [facility] Medical [facility] Primary Care [address] [place] [phone] James Gentile MD Authorization/Certi fication 01/02/2024 2:30 PM NEUROPSYCHIATRIST Ancillary Procedure [facility] Imaging at [address] [phone] Shortness of breath 01/02/2024 2:15 PM NEUROPSYCHIATRIST Office Visit [facility] at [address] [phone] Kimberly Mar PA Pleural effusion (Primary Dx); Shortness of breath 12/04/2023 Telephone [facility] [address] [facility] 12th [place] [address] [place] [address] Latrice Freedman NP 12/03/2023 9:40 AM CDT Office Visit [facility] [address] [facility] [address], [address] [place] [address] Latrice Freedman NP Primary biliary cirrhosis (HCC) (Primary Dx) from Last 3 Months Allergies Active Allergy Reactions Criticality Noted Date Comments Milnacipran Unknown 10/12/2020 Trazodone Unknown 10/12/2020 Vilazodone Unknown 10/12/2020 Medications multivitamin tablet Take 1 tablet by mouth daily Active cholecalcifero l (VITAMIN D-3) 25 mcg (1,000 unit) tablet Take 1 tablet (1,000 Units total) by mouth daily Active cetirizine (ZyrTEC) 10 mg tablet Take 1 tablet (10 mg total) by mouth daily Active levothyroxine (SYNTHROID) 175 mcg tablet Take 1 tablet (175 mcg total) by mouth daily 90 tablet 4 04/11/19 24 Active rosuvastatin (CRESTOR) 5 mg tablet Take 1 tablet (5 mg total) by mouth daily 30 tablet 11 07/10/19 24 025 Active ursodioL (GENOVEVA FORTE) 500 mg tablet TAKE 1 TABLET 3 TIMES A DAY 300 tablet 1 07/30/19 24 Active clobetasoL (TEMOVATE) 0.05 % ointment APPLY TOPICALLY TWO TIMES ADAY 30 g 07/30/19 24 Active tirzepatide (Mounjaro) 10 mg/0.5 mL pen injector Inject 10 mg under the skin every 7 days 6 mL 01/16/20 24 Active tirzepatide (Mounjaro) 10 mg/0.5 mL pen injector Inject 10 mg under the skin every 7 days 2 mL 11 07/10/19 24 024 Discontinued(Re order) tirzepatide (Mounjaro) 10 mg/0.5 mL pen injector Inject 10 mg under the skin every 7 days 6 mL 01/16/20 24 024 Discontinued Active Problems Problem Noted Date Diagnosed Date Psoriasis 05/14/2023 Overview (05/14/2023): Lower back and buttocks. Occasionally hands Elevated alkaline phosphatase level 11/30/2022 Assessment & Plan (11/30/2022 3:06 PM CDT): Patient with elevated alk phos, last level was 210 one year ago while taking ursodiol. Liver biopsy from 2017 showed steatosis but not steatohepatitis; ductular reaction with fibrosis, concerning for biliary issue. Unclear if she has PBC. She was advised to get MRI/MRCP but has not done so due to claustrophobia and cost. She has been taking urosdiol 500 mg tid. I will obtain updated labs today. If alk phos remains elevated, I will recommend MRI/MRCP again. Informed patient we can prescribe anti-anxiety medication to help. Patient is agreeable to this and will find out the dose of the benzo she last used for an MRI as it did not help enough. Patient has never had a DEXA, placed orders and can get locally. She will also get updated vitamin A and D levels. She should continue taking genoveva for now. Patient has gained 40 lbs over the last year with known hepatic steatosis. Discussed the importance of weight loss. She will talk to Dr. Gentile about starting ozempic. We have discussed the natural history of metabolic dysfunction-associated steatotic liver disease (MASLD), formerly known as NAFLD. We discussed the risks of progression to cirrhosis, association with hepatocellular carcinoma and potential future need for liver transplantation. We have discussed that the main mortality risks are primarily due to cardiovascular diseases, non-hepatic malignancies or cancers and only thirdly, from complications of liver disease. We recommend weight loss through diet and exercise. We recommend weight loss of 10% of current body weight over a period of a year. Lifestyle modification consisting of diet, exercise, and weight loss is necessary to treat patients with MASLD. The data shows that overall weight loss is the wilson to improvement in the histopathological features of MASH. A combination of a low calorie diet (daily reduction by 500-1,000 kcal) and moderate-intensity exercise provides the best chances of achieving and maintaining weight loss over time. Weight loss of at least 3%-5% of body weight appears necessary to improve steatosis, but a greater weight loss (7%-10%) is needed to improve the majority of the histopathological features of MASH, including fibrosis. She will return to clinic in 1 year. Class 2 severe obesity due t o excess calories with serious comorbidity and body mass index (BMI) of 36.0 to 36.9 in adult 10/10/2022 Assessment & Plan (03/13/2023 9:36 PM NEUROPSYCHIATRIST): Slowly losing weight. Discussed changing injection site due to abdominal pain and rule out pancreatitis due to being on GLP 1 see below Assessment & Plan (12/13/2022 7:56 PM CDT): Not at goal. Continue diet and exercise. Patient will be starting on Mounjaro to help with blood sugar control as well as weight loss Assessment & Plan (10/10/2022 8:35 PM CDT): Not at goal. Continue lifestyle modification, thyroid regulation.I recommend following 1200 calorie diet. As well as exercising 30-45 minutes most days of the week. Type 2 diabetes mellitus wit hout complication, without long-term current use of insulin ([facility]) 03/01/2022 Assessment & Plan (12/13/2022 7:55 PM CDT): Uncontrolled. Last hemoglobin A1c 7.0 in 09/27/22. Fasting blood sugar running between 140-150. Prior to meal running 135-150 with 2 hour postprandial coming down to baseline. Begin trial of gLP (Mounjaro). Monitor readings and follow up in 3 months Assessment & Plan (09/27/2022 3:21 PM CDT): Controlled/stable. Continue current meds and plan Recetn hoem readings in range for pp but fasting still a little high with or without metformin History of hydrocephalus 03/01/2022 Preventative health care 09/08/2021 Assessment & Plan (09/08/2021 2:37 PM CDT): Needs pap- referral placed Trying to get cscope again- she has had done in [place] with Dr. Herrmann in last 2 years covid booster advised Other hydrocephalus 07/28/2021 Assessment & Plan (07/28/2021 11:39 AM CDT): Pt states she had a ct scan with hydrocephalus? And this is why she is on triamterene-hctz.. she was seeing a neurousrgeon, they didn't want to do surgery. They instructed her to come back when its life-limiting . Has been 5 years since she saw a neurosurgeon. We need records at least from pcp. Primary biliary cirrhosis 07/28/2021 Assessment & Plan (12/03/2023 10:21 AM CDT): Patient with PBC. She has been on ursodiol since the time of her diagnosis. She should remain on ursodiol 500 mg three times daily. Will obtain HFP next month as well as TSH. Okay to continue with zyrtec for pruritis as that seems to help her. Given chronically elevated alk phos level, will discuss with attending as to whether she would be a candidate for another pharmacologic agent such as Seladelpar or Elafibrinor. She has hepatic steatosis, currently on mounjaro and has lost 20 lbs over the last year. Patient should continue with genoveva as she has been. Recommend increase physical activity. We have discussed the natural history of metabolic dysfunction-associated steatotic liver disease (MASLD), formerly known as NAFLD. We discussed the risks of progression to cirrhosis, association with hepatocellular carcinoma and potential future need for liver transplantation. We have discussed that the main mortality risks are primarily due to cardiovascular diseases, non-hepatic malignancies or cancers and only thirdly, from complications of liver disease. We recommend weight loss through diet and exercise. We recommend weight loss of 10% of current body weight over a period of a year. Lifestyle modification consisting of diet, exercise, and weight loss is necessary to treat patients with MASLD. The data shows that overall weight loss is the wilson to improvement in the histopathological features of MASH. A combination of a low calorie diet (daily reduction by 500-1,000 kcal) and moderate-intensity exercise provides the best chances of achieving and maintaining weight loss over time. Weight loss of at least 3%-5% of body weight appears necessary to improve steatosis, but a greater weight loss (7%-10%) is needed to improve the majority of the histopathological features of MASH, including fibrosis. She will return to clinic in 1 year. Assessment & Plan (12/13/2022 7:57 PM CDT): Stable. Continue follow up with hepatology. Has appointment for scan coming up Assessment & Plan (03/10/2022 6:28 PM NEUROPSYCHIATRIST): Continue follow up with hepatology. Assessment & Plan (11/25/2021 8:10 AM CDT): Patient with PBC, reportedly diagnosed several years ago and is now establishing care here. She has been on ursodiol 500 mg tid since time of her diagnosis. Will obtain updated labs to assess cholestatic liver function. If alk phos and GGT levels are normal, would like to decrease ursodiol dose as she has lost weight. Okay to continue with zyrtec for pruritis as that seems to help her. I will ask my office to obtain copies of her office notes from her previous provider who was managing the PBC, Dr. Lopez. She follows-up with her PCP for hypothyroidism. She should also talk to her PCP about getting a bone density scan which she has never had. Ordered vitamin D level. She will return to clinic in 1 year. Assessment & Plan (07/28/2021 11:46 AM CDT): Diagnosed a long time ago. Gets a biopsy every so often? Alkaline phosphatase. Itching all over-zyrtec helps Liver doctor in [place]: Dr. Lopez Fibromyalgia 07/28/2021 Assessment & Plan (07/28/2021 11:47 AM CDT): Was seeing Dr. PARISH in [facility] before Stable on long acting ultracet, would cont Family history of [place]'s disease 2 Assessment & Plan (07/28/2021 11:49 AM CDT): Brother has this Its presumed dad (who at 30) had evangelina dx. She has been tested, and she thinks she was told she would never have [place] Essential (primary) hypertension 10/21/2020 Assessment & Plan (12/13/2022 7:59 PM CDT): Not at goal. Blood pressure slightly elevated today 140/80 when repeated. Initially when came in vitals recorded lower with blood pressure 122/78. This is after eating without medication. Begin monitoring blood pressure at home and rule out white coat effect. If blood pressure increases may need to temporarily put back on hydrochlorothiazide versus other medication (has never tried anything else) such as losartan. With starting on a GLP anticipate weight loss and hopefully blood pressure will be able to go down Assessment & Plan (09/27/2022 3:08 PM CDT): Controlled/stable. Continue current meds and plan Assessment & Plan (05/19/2022 10:45 AM CDT): Well controlled on triamterene hydrochlorothiazide, Lasix Assessment & Plan (03/10/2022 6:27 PM NEUROPSYCHIATRIST): Controlled/stable. Continue current meds and plan Assessment & Plan (09/08/2021 1:10 PM CDT): triamt/hctz Assessment & Plan (07/28/2021 11:39 AM CDT): Stable triamterene-hctz Hyperlipidemia, mixed 10/21/2020 Assessment & Plan (09/27/2022 3:20 PM CDT): Waiting on labs drawn today to see if controlled.not on statin. Has pbc Assessment & Plan (05/19/2022 10:46 AM CDT): Relatively controlled without a statin. Continue diet exercise Assessment & Plan (03/10/2022 6:28 PM NEUROPSYCHIATRIST): Controlled/stable. Continue current meds and plan Acquired hypothyroidism 09/12/2019 Overview (07/28/2021): S/p HERNANDEZ for graves I the mid 90 Assessment & Plan (03/13/2023 9:35 PM NEUROPSYCHIATRIST): Recheck TSH last checked 10/04 normal. Advised regarding TSH and thyroid functioning may fluctuate based on antacid use, changes in absorption due to DLP 1 Assessment & Plan (12/13/2022 8:00 PM CDT): Controlled/stable. Continue current meds and plan Assessment & Plan (03/10/2022 6:28 PM NEUROPSYCHIATRIST): Controlled/stable. Continue current meds and plan Assessment & Plan (09/08/2021 1:11 PM CDT): Synthroid lowerd fro 175 to 137 mcg/da 07/2021- needs recheck labs Assessment & Plan (07/28/2021 11:35 AM CDT): On levothyroxine 175 mcg daily except Sunday she takes half a tablet Due for labs- ordered Non-toxic multinodular goiter 09/12/2019 Assessment & Plan (07/28/2021 11:36 AM CDT): US under media, done 09/24/2020- 1 r nodule likely benign colloid nodule Immunizations Name Administration Dates Next Due Influenza, Quadrivalent, Spl it, Intramuscular 02/17/2019 Influenza, Quadrivalent, Spl it, Preservative Free, Intramuscular 12/13/2022,01/22/2018,10/20/2016 Pneumococcal Conjugate PCV 13 09/08/2021 Tdap 01/22/2018 Social History Tobacco Use Types Packs/Day Years Used Date Smoking Tobacco: Never Smokeless Tobacco: Never Tobacco Cessation:Counseling Given: Not Answered AUDIT-C Answer Date Recorded Q1: How often do you have a drink containing alcohol? Never 12/03/2023 Q2: How many drinks containi ng alcohol do you have on a typical day when you are drinking? Patient does not drink Frequency of Binge Drinking Not on file 11/13 PHQ-2 Answer Date Recorded PHQ-2 Total Score [...] on file Sexual Orientation Not on file Last Filed Vital Signs Vital Sign Reading Time Taken Comments Blood Pressure 162/80 01/02/2024 2:10 PM NEUROPSYCHIATRIST Pulse 80 01/02/2024 2:10 PM NEUROPSYCHIATRIST Temperature 37.7 ??C (99.8 ??F) 01/02/2024 2:10 PM CS T Respiratory Rate 24 01/02/2024 2:10 PM NEUROPSYCHIATRIST Oxygen Saturation 92% 01/02/2024 2:10 PM NEUROPSYCHIATRIST Inhaled Oxygen Concentration - - Weight 92.5 kg (204 lb) 01/02/2024 2:10 PM NEUROPSYCHIATRIST Height 162.6 cm (5' 4 ) 01/02/2024 2:10 PM NEUROPSYCHIATRIST Body Mass Index 35.02 01/02/2024 2:10 PM NEUROPSYCHIATRIST Plan of Treatment Not on file Procedures Procedure Name Priority Date/Time Associated Diagnosis Comments XR CHEST PA LATERAL 2 VIEWS Schedule CAYETANO, Read CAYETANO (Appt Today, Awaiting Results) 01/02/2024 2:31 PM NEUROPSYCHIATRIST Shortness of breath LIPID PANEL Routine 07/10/2023 12:32 PM CDT Acquired hypothyroidism Type 2 diabetes mellitus without complication, without long-term current use of insulin ([facility]) (HCC) Class 2 severe obesity due to excess calories with serious comorbidity and body mass index (BMI) of 36.0 to 36.9 in adult (HCC) Hyperlipidemia, mixed Essential (primary) hypertension Hypothyroidism, unspecified type Cartilage disease Laboratory examination ordered as part of a complete physical examination Other general symptoms and signs Screening for cardiovascular condition Psoriasis ALBUMIN CREATININE RATIO, URINE Routine 07/10/2023 12:32 PM CDT EGFR Routine 03/13/2023 3:16 PM NEUROPSYCHIATRIST Acquired hypothyroidism Primary biliary cirrhosis (HCC) Class 2 severe obesity due to excess calories with serious comorbidity and body mass index (BMI) of 36.0 to 36.9 in adult (HCC) Abdominal pain HEMOGLOBIN A1C Routine 03/13/2023 3:16 PM NEUROPSYCHIATRIST Acquired hypothyroidism Primary biliary cirrhosis (HCC) Class 2 severe obesity due to excess calories with serious comorbidity and body mass index (BMI) of 36.0 to 36.9 in adult (HCC) Abdominal pain SCREENING MAMMOGRAM BILATERAL W TITA Schedule Routine, Read Routine (OP Routine) 01/31/2023 2:03 PM NEUROPSYCHIATRIST Screening mammogram, encounter for DIABETES EYE EXAM Routine 03/10/2022 COLONOSCOPY Routine 09/22/2020 from Last 3 Months or Most Recently Relevant to Health Maintenance Results * XR Chest Pa Lateral 2 Views (01/02/2024 2:31 PM NEUROPSYCHIATRIST) Anatomical Region Laterality Modality Body, Chest N/A Digital Radiogra phy 01/02/2024 2:43 PM NEUROPSYCHIATRIST Narrative 01/02/2024 2:46 PM NEUROPSYCHIATRIST EXAM DESCRIPTION: ?? XR CHEST PA LATERAL 2 VIEWS REASON FOR STUDY: Cough shortness of breath for 3-4 days. TECHNIQUE: PA and lateral radiographic views of the chest COMPARISON: None FINDINGS: LUNGS/PLEURAE: ?? Significant opacification of the right hemithorax likely secondary to a large pleural effusion and associated passive atelectasis. ??No large left pleural effusion. ??There is no pneumothorax. HEART/MEDIASTINUM: ??Heart size is partially obscured HARDWARE/LINES/TUBES: ?? None. BONES: ??Mild thoracic spondylosis. ?? IMPRESSION: Significant opacification of the right hemithorax likely secondary to a large pleural effusion and associated passive atelectasis. ??Correlation with CT is recommended. ?? THIS IS AN ELECTRONICALLY VERIFIED FINAL REPORT 01/02/2024 2:46 PM - Electronically signed by ??Jesu Montiel M.D. D: ??01/02/2024 2:46 PM T: Report ID: [id number] Reading Location: ??[id number] Procedure Note Jesu Montiel MD - 01/02/2024 EXAM DESCRIPTION: XR CHEST PA LATERAL 2 VIEWS REASON FOR STUDY: Cough shortness of breath for 3-4 days. TECHNIQUE: PA and lateral radiographic views of the chest COMPARISON: None FINDINGS: LUNGS/PLEURAE: Significant opacification of the righthemithorax likely secondary to a large pleural effusion and associated passive atelectasis. No large left pleural effusion. There is no pneumothorax. HEART/MEDIASTINUM: Heart size is partially obscured HARDWARE/LINES/TUBES: None. BONES: Mild thoracic spondylosis. IMPRESSION: Significant opacification of the right hemithorax likely secondary to alarge pleural effusion and associated passive atelectasis. Correlation with CTis recommended. THIS IS AN ELECTRONICALLY VERIFIED FINAL REPORT 01/02/2024 2:46 PM - Electronically signed by Jesu Montiel M.D. T: Report ID: [id number] Reading Location: [place] [address] us Kimberly S[facility]AMAR[facility] IMG XR PROCEDURES Final Result * (ABNORMAL) Albumin Creatinine Ratio, Urine (07/10/2023 12:32 PM CDT) Albumin Ur <12.0 mg/L Comment: Interpretive Data No reference range established. Current interpretive data was last revised 2018. Testing performed by: [address] [address] Creatinine Ur 27.6 mg/dL [facility] Comment: Interpretive Data No reference range established. Current interpretive data was last revised 2018. Testing performed by: [address] [address] Albumin Creatinine Ratio, Ur <43(H) 1 - 29 mg/g [facility] Comment:Testing performed by : [address] [address] Urine 07/10/2023 12:3 2 PM CDT 07/10/2023 1:41 PM CDT us James Gentile MD LAB URINE ORDERABLES Final R esult [facility] [address] [facility] [place] [address] * (ABNORMAL) Lipid panel (07/10/2023 12:32 PM CDT) Cholesterol 273(H) 30 - 199 mg/dL Comment: Interpretive Data Ages < or = 19 years ??Acceptable: ? <170 mg/dL ??Borderline high: ??170-199 mg/dL ??High: ? >or= 200 mg/dL Ages > or = 20 years ??Desirable: ?<200 mg/dL ??Borderline high: ??200-239 mg/dL ??High: ? >or= 240 mg/dL Literature References: 1. Expert Panel on Integrated Guidelines for Cardiovascular Health and Risk Reduction in Children and Adolescents. Pediatrics 2011;128:S213 2. NCEP Expert Panel. Circulation 2004;110:227 Current Interpretive Data was last revised on 2017. Testing performed by: [address] [address] Triglycerides 123 <=149 mg/dL [facility] Comment: Interpretive Data Ages < or = 9 years ??Acceptable: ? <75 mg/dL ??Borderline high: ??75-99 mg/dL ??High: ? >or= 100 mg/dL Ages 10 to 20 years ??Acceptable: ? <90 mg/dL ??Borderline high: ??90-129 mg/dL ??High: ? >or= 130 mg/dL Ages > or = 20 years ??Desirable: ?<150 mg/dL ??Borderline high: ??150-199 mg/dL ??High: ? 200-499 mg/dL ?Very high: ?? >or= 499 mg/dL Literature References: 1. Expert Panel on Integrated Guidelines for Cardiovascular Health and Risk Reduction in Children and Adolescents. Pediatrics 2011;128:S213 2. NCEP Expert Panel. Circulation 2004;110:227 Current Interpretive Data was last revised on 2017. Testing performed by: [address] [address] HDL 50 >=40 mg/dL [facility] Comment: Interpretive Data Ages < or = 19 years ??Acceptable: ? >45 mg/dL ??Borderline low: ?? 40-45 mg/dL ??Low: ? <40 mg/dL Ages > or = 20 years ??Desirable: ?>or= 60 mg/dL ??Low: ? <40 mg/dL Literature References: 1. Expert Panel on Integrated Guidelines for Cardiovascular Health and Risk Reduction in Children and Adolescents. Pediatrics 2011;128:S213 2. NCEP Expert Panel. Circulation 2004;110:227 Current Interpretive Data was last revised on 2017. Testing performed by: [facility], [address] [place] [address]., [address] LDL, calculated 198(H) <=129 mg/dL [facility] Comment: Interpretive Data Ages < or = 19 years ??Acceptable: ? <110 mg/dL ??Borderline high: ??110-129 mg/dL ??High: ?>or= 130 mg/dL Ages > or = 20 years ??Optimal: ? <100 mg/dL ??Near optimal: ?100-129 mg/dL ??Borderline high: ?? 130-159 mg/dL ??High: ?>160 mg/dL Literature References: 1. Expert Panel on Integrated Guidelines for Cardiovascular Health and Risk Reduction in Children and Adolescents. Pediatrics 2011;128:S213 2. NCEP Expert Panel. Circulation 2004;110:227 Current Interpretive Data was last revised on 2017. Testing performed by: [address] [address] Non-HDL Cholesterol 223 mg/dL [facility] Comment: Interpretive Data Ages < or = 19 years ??Acceptable: ?<120 mg/dL ??Borderline high: ??120-144 mg/dL ??High: ?>145 mg/dL Ages > or = 20 years ??When triglycerides are >200 mg/dL, Non-HDL cholesterol is a secondary target of ? therapy with treatment goals that are 30 mg/dL greater than the LDL cholesterol target. ? Literature References: 1. Expert Panel on Integrated Guidelines for Cardiovascular Health and Risk Reduction in Children and Adolescents. Pediatrics 2011;128:S213 2. NCEP Expert Panel. Circulation 2004;110:227 Current Interpretive Data was last revised on 2017. Testing performed by: [facility], [address] [place] [address]., [address] Chol/HDL ratio 5 [facility] Comment:Testing performed by : [facility], [address] [place] [address]., [address] Blood 07/10/2023 12:3 2 PM CDT 07/10/2023 1:43 PM CDT us James Gentile MD LAB BLOOD ORDERABLES Final R esult [facility] [address] [facility] [place] [address] * eGFR (03/13/2023 3:16 PM NEUROPSYCHIATRIST) eGFR 98 mL/min/1. 73 m2 [facility] Comment: Interpretive Data Reference Interval Normal ?>/= 90 mL/min/1.73m2 Mildly decreased* ? 60 - 89 mL/min/1.73m2 Mildly to moderately decreased ?45 - 59 mL/min/1.73m2 Moderately to severely decreased ??30 - 44 mL/min/1.73m2 Severely decreased ?15 - 29 mL/min/1.73m2 Kidney Failure ?< 15 ??mL/min/1.73m2 *Relative to young adult level Estimated glomerular filtration rate is determined by the 2020 CKD-EPI equation recommended by the National Kidney Foundation (A Unifying Approach to GFR Estimation: Recommendations of the NKF-ASK Task Force on Reassessing the Inclusion of Race in Diagnosing Kidney Disease, JASN 2020). The CKD-EPI equation should not be used for patients with unstable renal function and has not been validated in children and those over 70. Current interpretive data was last reviewed 2020. Testing performed by: [address] [address] Blood 03/13/2023 3:16 PM NEUROPSYCHIATRIST 03/13/2023 5:01 PM NEUROPSYCHIATRIST James Gentile MD LAB BLOOD ORDERABLES Final R esult Performing Organization Address City/[facility] Co de Phone Number [facility] [address] [facility] [address] [place], [place] [id number] * (ABNORMAL) Hemoglobin A1c (03/13/2023 3:16 PM NEUROPSYCHIATRIST) Hgb A1C 6.6(H) 4.0 - 5.6 % [facility] Comment:Testing performed by : [address] [address] Estimated Average Glucose 143 mg/dL [facility] Comment: The ADA recommends reporting an estimated Average Glucose (eAG) with all Hemoglobin A1c results using the equation derived from a study of 507 normal and diabetic adults. ??Minority populations were underrepresented and children were not included. ?? (Diabetes Care 31:[id number], 2008). ??The eAG is not equivalent to a fasting glucose. Testing performed by: [address] [id number] Blood 03/13/2023 3:16 PM NEUROPSYCHIATRIST 03/13/2023 5:00 PM NEUROPSYCHIATRIST James Gentile MD LAB BLOOD ORDERABLES Final R esult Performing Organization Address City/[facility] Co de Phone Number ZENOBIA [phone] [facility] [place] [address] * Screening Mammogram Bilateral W Tita (01/31/2023 2:03 PM NEUROPSYCHIATRIST) Anatomical Region Laterality Modality Breast Bilateral Mammography Impressions 01/31/2023 2:16 PM NEUROPSYCHIATRIST BI-RADS?? ATLAS category (overall): 2 - Benign There is no mammographic evidence of malignancy. A 1 year screening mammogram is recommended. The patient has been or will be contacted. We recommend annual screening mammography for women at average risk of breast cancer beginning at age 40, based on guidelines of the [employer] (ACR Practice Parameter for the Performance of Screening and Diagnostic Mammography) and [employer]. For women with and elevated risk of breast cancer, please refer to the ACR Practice Parameter for specific screening recommendations. The patient will be entered into a reminder system with a target due date of 1 year for her next screening exam. Narrative 01/31/2023 2:16 PM NEUROPSYCHIATRIST Screening Mammogram Bilateral W Tita: 01/31/23 The study was acquired using full field digital technology and interpreted from soft copy. 2D digital mammographic views, as well as 3D digital tomosynthesis were performed in the CC and MLO projections. CLINICAL: ??Screening mammogram, encounter for. ??No relevant medical history has been documented for this patient. ??No known family history of breast cancer. COMPARISONS: 12/06/2021 Screening Mammogram Bilateral W Tita 09/16/2020 Breast Imaging Screening Outside Reference BREAST TISSUE: The breasts have scattered areas of fibroglandular density. FINDINGS: There are benign calcifications in both breasts. There are postoperative findings in the right breast. There is a biopsy clip in the left breast. No suspicious masses, suspicious calcifications, or other suspicious findings are seen within either breast. There has been no suspicious change. Self Screening Mammogram IMG MAMMO PROCEDURES Fi nal Result * DIABETES EYE EXAM (03/10/2022) SCRIBED DIABETIC DILATED EYE EXAM Normal Historical Provider HEALTH MAINTENANCE Final Result * COLONOSCOPY (09/22/2020) Historical Provider HEALTH MAINTENANCE Final Result from Last 3 Months or Most Recently Relevant to Health Maintenance Insurance [employer] ACCESS OOS [employer] O[employer] ACC[employer] OOS Care Teams Business Liaison Officer Relationship Specialty Start Date End Date Yari Castellano MD [address] [place] [id number] PCP - General Internal Medicine 01/18/24
--- OUTSIDE RECORDS SUMMARY | 2024-02-12 03:52 | XMS_ITS | Encounter Summary ---
Author Organization [facility] Healthcare Address [address] [place] [address] Care Team Providers Care Melt House Drag Operator Name Role Phone James Gentile MD Primary Care Provider + [phone] Encounter Details Date Type Department Care Team (Latest Contact Info) Description 01/02/2024 2:30 PM LITIGATION LEGAL SECRETARY Ancillary Procedure [facility] Medical Group Imaging at [address] [address] Shortness of breath Social History Tobacco Use Types Packs/Day Years Used Date Smoking Tobacco: Never Smokeless Tobacco: Never AUDIT-C Answer Date Recorded Q1: How often [...] (Appt Today, Awaiting Results) 01/02/2024 2:31 PM LITIGATION LEGAL SECRETARY Shortness of breath documented in this encounter Results * XR Chest Pa Lateral 2 Views (01/02/2024 2:31 PM LITIGATION LEGAL SECRETARY) Anatomical Region Laterality Modality Body, Chest N/A Digital Radiogra phy 01/02/2024 2:43 PM LITIGATION LEGAL SECRETARY Narrative 01/02/2024 2:46 PM LITIGATION LEGAL SECRETARY EXAM DESCRIPTION: ?? XR CHEST PA LATERAL [...] 2:46 PM - Electronically signed by ??Jesu MICHAEL D: ??01/02/2024 2:46 PM T: Report ID: [id number] Reading Location: ??[id number] Procedure Note Jesu Montiel MD - 01/02/2024 [...] 2:46 PM - Electronically signed by Jesu MICHAEL T: Report ID: [id number] Reading Location: [id number] [facility] IMG XR PROCEDURES Final Result documented in this encounter Visit Diagnoses Diagnosis Shortness of breath documented in this encounter Care Teams Melt House Drag Operator Relationship Specialty Start Date End Date James Gentile MD [address] [place] [id number] PCP - General Internal Medicine 03/01/22 01/17/24 documented as of this encounter
--- OUTSIDE RECORDS SUMMARY | 2024-02-12 03:52 | XMS_ITS | Encounter Summary ---
Author Organization [facility] Address [address] [place] [address] Phone Care Team Providers Care Power Plant Assistant Name Role Phone James Gentile MD Primary Care Provider + [phone] Encounter Details Date Type Department Care Team (Late st Contact Info) Description 01/18/2023 Telephone [facility] [address] [place] [address] 12[address] [place] [address] [place] [address] Beba Briceño, JUNIE Social History Tobacco Use Types Packs/Day Years Used Date Smoking Tobacco: Never Smokeless Tobacco: Never AUDIT-C Answer Date Recorded Q1: How often do you have a drink containing alcohol? Monthly or less 05/01/2022 Q2: How many drinks containi ng alcohol do you have on a typical day when you are drinking? Patient does not drink Q3: How often do you have si x or more drinks on one occasion? Never 05/01/2022 PHQ-2 Answer Date Recorded PHQ-2 Total Score (If total score is 3 or more points, staff should administer the PHQ-9) 0 12/13/2022 Personal Safety Answer Date Recorded Have you [...] on file documented as of this encounter Miscellaneous Notes * Telephone Encounter - Beba Briceño RN - 01/18/2023 11:39 AM RECYCLING OPERATOR Latrice Freedman NP sent results to the patient via a [employer] Message. ----- Message from Latrice Freedman NP sent at 01/18/2023 11:28 AM RECYCLING OPERATOR ----- Normal DEXA> Sent my chart message. CLING OPERATOR CLING OPERATOR documented in this encounter Plan of Treatment Not on file documented as of this encounter Visit Diagnoses Not on filedocumented in this encounter Care Teams Power Plant Assistant Relationship Specialty Start Date End Date James Gentile MD [address] [place] [id number] PCP - General Internal Medicine 03/01/22 01/17/24 documented as of this encounter
--- OUTSIDE RECORDS SUMMARY | 2024-02-12 03:52 | XMS_ITS | Encounter Summary ---
Author Organization [facility] Healthcare Address [address] [place] [address] Care Team Providers Care Sas Bi Developer Name Role Phone James Gentile MD Primary Care Provider + [phone] Reason for Referral * Diagnostic Imaging (Routine) - Closed Specialty Diagnoses / Procedures Referred By Contac t Referred To Contact Diagnoses Screening mammogram, encounter for Procedures Screening Mammogram Bilateral W Saul Screening Mammogram, [address] [address] Referral ID Status Reason Start Date Expiration Date Visits Re quested Visits Authorized [id number] Closed 12/05/2022 01/04/2024 1 1 CTURAL LAYOUT WORKER * Diagnostic Imaging (Routine) - Closed Specialty Diagnoses / Procedures Referred By Contac t Referred To Contact Diagnoses Screening mammogram, encounter for Procedures Screening Mammogram Bilateral W Saul Screening Mammogram, [address] [address] Referral ID Status Reason Start Date Expiration Date Visits Re quested Visits Authorized [id number] Closed 12/05/2022 01/04/2024 1 1 Reason for Visit * Diagnostic Imaging (Routine) - Closed Specialty Diagnoses / Procedures Referred By Contac t Referred To Contact Diagnoses Screening mammogram, encounter for Procedures Screening Mammogram Bilateral W Saul Screening Mammogram, [address] [address] Referral ID Status Reason Start Date Expiration Date Visits Re quested Visits Authorized [id number] Closed 12/05/2022 01/04/2024 1 1 Encounter Details Date Type Department Care Team (Latest Contact Info) Description 01/31/2023 1:46 PM STRUCTURAL LAYOUT WORKER - 01/31/2023 11:59 PM STRUCTURAL LAYOUT WORKER Hospital Encounter [facility] Breast Imaging [address] [place] [address] Screening mammogram, encounter for Discharge Disposition: Discharge to home or self care Social History Tobacco Use Types Packs/Day Years [...] on file documented as of this encounter Medications at Time of Discharge cetirizine (ZyrTEC) 10 mg tablet Take 1 tablet (10 mg total) by mouth daily cholecalciferol (VITAMIN D-3) 25 mcg (1,000 unit) tablet Take 1 tablet (1,000 Units total) by mouth daily multivitamin tablet Take 1 tablet by mouth daily tirzepatide (Mounjaro) 2.5 mg/0.5 mL pen injectorIndicati ons:Weight Loss Management for Obese Patient (BMI >= 30) Inject 0.5 mL (2.5 mg total) under the skin once a week then increase to 5.0 mg 2 mL 1 01/08/2023 3 clobetasoL (TEMOVATE) 0.05 % ointment Apply topically 4 levothyroxine (SYNTHROID) 100 mcg tablet Take 1 tablet (100 mcg total) by mouth daily 90 tablet 4 09/09/2021 4 levothyroxine (SYNTHROID) 125 mcg tablet Take 1 tablet (125 mcg total) by mouth daily 90 tablet 4 05/16/2022 4 ursodioL (GENOVEVA FORTE) 500 mg tablet TAKE 1 TABLET 3 TIMES A DAY 270 tablet 1 01/01/2023 4 documented as of this encounter Discharge Disposition Disposition Code Departure Means Destination Discharge to home or self care documented in this encounter Plan of Treatment Not on file documented as of this encounter Procedures Procedure Name Priority Date/Time Associated Diagnosis Comments SCREENING MAMMOGRAM BILATERAL W SAUL Schedule Routine, Read Routine (OP Routine) 01/31/2023 2:03 PM STRUCTURAL LAYOUT WORKER Screening mammogram, encounter for documented in this encounter Results * Screening Mammogram Bilateral W Saul (01/31/2023 2:03 PM STRUCTURAL LAYOUT WORKER) Anatomical Region Laterality Modality Breast Bilateral Mammography Impressions 01/31/2023 2:16 PM STRUCTURAL LAYOUT WORKER BI-RADS?? ATLAS category (overall): 2 - Benign There is no mammographic evidence of malignancy. A 1 year screening mammogram is recommended. The patient has been or will be contacted. We recommend annual screening mammography for women at average risk of breast cancer beginning at age 40, based on guidelines of the [employer] (ACR Practice Parameter for the Performance of Screening and Diagnostic Mammography) and [employer]. For women with and elevated risk of breast cancer, please refer to the ACR Practice Parameter for specific screening recommendations. The patient will be entered into a reminder system with a target due date of 1 year for her next screening exam. Narrative 01/31/2023 2:16 PM STRUCTURAL LAYOUT WORKER Screening Mammogram Bilateral W Saul: 01/31/23 The study was acquired using full field digital technology and interpreted from soft copy. 2D digital mammographic views, as well as 3D digital tomosynthesis were performed in the CC and MLO projections. CLINICAL: ??Screening mammogram, encounter for. ??No relevant medical history has been documented for this patient. ??No known family history of breast cancer. COMPARISONS: 12/06/2021 Screening Mammogram Bilateral W Saul 09/16/2020 Breast Imaging Screening Outside Reference BREAST TISSUE: The breasts have scattered areas of fibroglandular density. FINDINGS: There are benign calcifications in both breasts. There are postoperative findings in the right breast. There is a biopsy clip in the left breast. No suspicious masses, suspicious calcifications, or other suspicious findings are seen within either breast. There has been no suspicious change. us Self Screening Mammogram IMG MAMMO PROCEDURES Fi nal Result documented in this encounter Visit Diagnoses Diagnosis Screening mammogram, encounter for documented in this encounter Care Teams Sas Bi Developer Relationship Specialty Start Date End Date James Gentile MD [address] [place] [id number] PCP - General Internal Medicine 03/01/22 01/17/24 documented as of this encounter
--- OUTSIDE RECORDS SUMMARY | 2024-02-12 03:52 | XMS_ITS | Clinical Summary ---
Author Organization [facility] [address] [place] [address] Care Team Providers Care Cut Off Operator Scorer Name Role Phone Yari Castellano MD Primary Care Provider + [phone] Allergies Active Allergy Reactions Criticality Noted Date [...] tablet 11 07/10/19 24 025 Active ursodioL (NELLY FORTE) 500 mg tablet TAKE 1 TABLET [...] and D levels. She should continue taking nelly for now. Patient has gained 40 lbs [...] 10/10/2022 Assessment & Plan (03/13/2023 9:36 PM CLAM SHOVEL OPERATOR): Slowly losing weight. Discussed changing injection site [...] complication, without long-term current use of insulin ([facility]) 03/01/2022 Assessment & Plan (12/13/2022 7:55 PM [...] cscope again- she has had done in [place] with Dr. Herrmann in last 2 years [...] the last year. Patient should continue with nelly as she has been. Recommend increase physical [...] up Assessment & Plan (03/10/2022 6:28 PM CLAM SHOVEL OPERATOR): Continue follow up with hepatology. Assessment & [...] Itching all over-zyrtec helps Liver doctor in [place]: Dr. Lopez Fibromyalgia 07/28/2021 Assessment & Plan (07/28/2021 11:47 AM CDT): Was seeing Dr. PARISH in [facility] in rheum before Stable on long acting ultracet, would cont Family history of Evangelina's disease 2 Assessment & Plan (07/28/2021 11:49 [...] Lasix Assessment & Plan (03/10/2022 6:27 PM CLAM SHOVEL OPERATOR): Controlled/stable. Continue current meds and plan Assessment [...] exercise Assessment & Plan (03/10/2022 6:28 PM CLAM SHOVEL OPERATOR): Controlled/stable. Continue current meds and plan Acquired hypothyroidism 09/12/2019 Overview (07/28/2021): S/p HERNANDEZ for graves I the mid Assessment & Plan (03/13/2023 9:35 PM CLAM SHOVEL OPERATOR): Recheck TSH last checked 10/04 normal. Advised regarding TSH and thyroid functioning may fluctuate based on antacid use, changes in absorption due to DLP 1 Assessment & Plan (12/13/2022 8:00 PM CDT): Controlled/stable. Continue current meds and plan Assessment & Plan (03/10/2022 6:28 PM CLAM SHOVEL OPERATOR): Controlled/stable. Continue current meds and plan Assessment [...] 1 r nodule likely benign colloid nodule Encounters Date Type Department Care Team Description 01/15/2024 Telephone [facility] Primary Care [address] [place] [phone] James Gentile MD Authorization/Certi fication 01/02/2024 2:30 PM CLAM SHOVEL OPERATOR Ancillary Procedure [facility] Imaging at [address] [phone] Shortness of breath 01/02/2024 2:15 PM CLAM SHOVEL OPERATOR Office Visit [facility] at [address] [phone] Kimberly Mar PA Pleural effusion (Primary Dx); Shortness of breath 12/04/[address] [facility] [address] [place] [address] [place] [address] Latrice Freedman NP 12/03/2023 9:40 AM CDT Office Visit [facility] [address] [facility] [address] [facility] [address] [place] [phone] Latrice Freedman NP Primary biliary cirrhosis (HCC) (Primary Dx) from Last 3 Months Immunizations Name Administration Dates Next Due Influenza, Quadrivalent, Spl it, Intramuscular 02/17/2019 Influenza, Quadrivalent, Spl it, Preservative Free, Intramuscular 12/13/2022,01/22/2018,10/20/2016 Pneumococcal Conjugate PCV 13 09/08/2021 Tdap 01/22/2018 Surgical History Surgery Date Site/Laterality Comments BREAST BIOPSY Left FL FLUORO GUIDED LUMBAR PUNCTURE 05/01/2022 Right Medical History Medical History Date Comments Diabetes mellitus (HCC) Arthritis Thyroid disease Allergic Autoimmune disease (CMS/HCC) (HCC) Essential (primary) hypertension 10/21/2020 Family History Medical History Relation Name Comments Butts's disease Brother Cerebrial Hemmorage Father Cancer Mother Katt Relation Name Status Comments Brother Alive Father Mother Katt Social History Tobacco Use Types Packs/Day Years [...] on file Sexual Orientation Not on file Obstetrics History Para Term AB IAB SAB Ectopic Multiple Livin g Live Births 2 2 2 Date Outcome GA Total Labor Labor/2nd/3rd Weight Sex Type Anes PTL Aniya A1 A5 Name Clin Term Term Last Filed Vital Signs Vital Sign Reading Time Taken Comments Blood Pressure 162/80 01/02/2024 2:10 PM CLAM SHOVEL OPERATOR Pulse 80 01/02/2024 2:10 PM CLAM SHOVEL OPERATOR Temperature 37.7 ??C (99.8 ??F) 01/02/2024 2:10 PM CS T Respiratory Rate 24 01/02/2024 2:10 PM CLAM SHOVEL OPERATOR Oxygen Saturation 92% 01/02/2024 2:10 PM CLAM SHOVEL OPERATOR Inhaled Oxygen Concentration - - Weight 92.5 kg (204 lb) 01/02/2024 2:10 PM CLAM SHOVEL OPERATOR Height 162.6 cm (5' 4 ) 01/02/2024 2:10 PM CLAM SHOVEL OPERATOR Body Mass Index 35.02 01/02/2024 2:10 PM CLAM SHOVEL OPERATOR Plan of Treatment Health Maintenance Due Date Last Done Comments Cervical Cancer Screening 1960 Hepatitis C Screening 1960 Hepatitis B Screening 1978 Zoster Vaccine (1 of 2) 2010 Pneumococcal vaccine <65 (2 of 2 - PPSV23 or PCV20) 11/03/2021 09/08/2021 Regular Well Visit/Exam 18-64 09/08/2022 09/08/2021 Hemoglobin A1C 09/11/2023 03/13/2023, 08/07/2022, 07/28/2021 Covid-19 Vaccine ( - 2023-2 5 season) 2023 02/01/2021, 06/08/2020, 05/11/2020 Influenza Vaccine (#1) 2023 , 02/17/2019, 01/22/2018, Additional history exists Foot Exam 12/14/2023 12/13/2022, 09/08/2021 Breast Cancer Screening-Mammogram 02/01/2024 023, 12/06/2021 Dilated Eye Exam 03/10/2024 03/10/2022 eGFR 03/13/2024 03/13/2023, 11/12, 11/24/2021, Additional history exists Albumin Creatinine Ratio, Urine 07/09/2024 Depression Screening 07/09/2024 07/10/2023, 05/14/2023, 04/11/2023, Additional history exists Lipid Panel 07/09/2024 07/10/2023, 07/28/2021 DTaP/Tdap/Td Vaccine (2 - Td or Tdap) 01/23/2028 01/22/2018 Colon Cancer Screening-Colonoscopy 09/22/20302020 Procedures Procedure Name Priority Date/Time Associated Diagnosis Comments XR CHEST PA LATERAL 2 VIEWS Schedule CAYETANO, Read CAYETANO (Appt Today, Awaiting Results) 01/02/2024 2:31 PM CLAM SHOVEL OPERATOR Shortness of breath LIPID PANEL Routine 07/10/2023 12:32 PM CDT Acquired hypothyroidism Type 2 diabetes mellitus without complication, without long-term current use of insulin ([facility]) ([facility]) Class 2 severe obesity due to excess [...] PM CDT EGFR Routine 03/13/2023 3:16 PM CLAM SHOVEL OPERATOR Acquired hypothyroidism Primary biliary cirrhosis (HCC) Class 2 severe obesity due to excess calories with serious comorbidity and body mass index (BMI) of 36.0 to 36.9 in adult (HCC) Abdominal pain HEMOGLOBIN A1C Routine 03/13/2023 3:16 PM CLAM SHOVEL OPERATOR Acquired hypothyroidism Primary biliary cirrhosis (HCC) Class 2 severe obesity due to excess calories with serious comorbidity and body mass index (BMI) of 36.0 to 36.9 in adult (HCC) Abdominal pain SCREENING MAMMOGRAM BILATERAL W SAUL Schedule Routine, Read Routine (OP Routine) 01/31/2023 2:03 PM CLAM SHOVEL OPERATOR Screening mammogram, encounter for DIABETES EYE EXAM Routine 03/10/2022 COLONOSCOPY Routine 09/22/2020 from Last 3 Months or Most Recently Relevant to Health Maintenance Results * XR Chest Pa Lateral 2 Views (01/02/2024 2:31 PM CLAM SHOVEL OPERATOR) Anatomical Region Laterality Modality Body, Chest N/A Digital Radiogra phy 01/02/2024 2:43 PM CLAM SHOVEL OPERATOR Narrative 01/02/2024 2:46 PM CLAM SHOVEL OPERATOR EXAM DESCRIPTION: ?? XR CHEST PA LATERAL [...] D: ??01/02/2024 2:46 PM T: Report ID: [id number] Reading Location: ??[id number] Procedure Note Jesu Montiel MD - 01/02/2024 [...] signed by Jesu MICHAEL T: Report ID: [id number] Reading Location: [id number] us Kimberly SANTAMARIA IMG XR PROCEDURES Final Result * (ABNORMAL) Albumin Creatinine Ratio, Urine (07/10/2023 12:32 PM CDT) Albumin Ur <12.0 mg/L Comment: Interpretive Data No reference range established. Current interpretive data was last revised 2018. Testing performed by: [address] [address] Creatinine Ur 27.6 mg/dL [facility] Comment: Interpretive Data No reference range established. Current interpretive data was last revised 2018. Testing performed by: [address] [address] Albumin Creatinine Ratio, Ur <43(H) 1 - 29 mg/g [facility] Comment:Testing performed by : [address] [address] Urine 07/10/2023 12:3 2 PM CDT 07/10/2023 1:41 PM CDT us James Gentile MD LAB URINE ORDERABLES Final R esult [facility] [address] [facility] Department [place] [address] * (ABNORMAL) Lipid panel (07/10/2023 12:32 PM CDT) [facility] Signature Cholesterol 273(H) 30 - 199 mg/dL Comment: [...] last revised on 2017. Testing performed by: [address] [address] Triglycerides 123 <=149 mg/dL [facility] Comment: Interpretive [...] last revised on 2017. Testing performed by: [address] [place]., [address] HDL 50 >=40 mg/dL [facility] Comment: Interpretive [...] last revised on 2017. Testing performed by: [address] [address] LDL, calculated 198(H) <=129 mg/dL [facility] Comment: [...] last revised on 2017. Testing performed by: [address] [address] Non-HDL Cholesterol 223 mg/dL [facility] Comment: Interpretive Data Ages < or = [...] last revised on 2017. Testing performed by: [facility], [address] [place] [address]., [address] Chol/HDL ratio 5 [facility]IA Comment:Testing performed by : [facility], [address] [place] [address]., [address] Blood 07/10/2023 12:3 2 PM CDT 07/10/2023 1:43 PM CDT us James Gentile MD LAB BLOOD ORDERABLES Final R esult [facility] [address] [facility] Department [place] [address] * eGFR (03/13/2023 3:16 PM CLAM SHOVEL OPERATOR) [facility] eGFR 98 mL/min/1. 73 m2 [facility]IA Comment: [...] was last reviewed 2020. Testing performed by: [address] [address] Blood 03/13/2023 3:16 PM CLAM SHOVEL OPERATOR 03/13/2023 5:01 PM CLAM SHOVEL OPERATOR us James Gentile MD LAB BLOOD ORDERABLES Final R esult Performing Organization Address [facility] Co de Phone Number [facility] [address] [facility] [employer] [address] * (ABNORMAL) Hemoglobin A1c (03/13/2023 3:16 PM CLAM SHOVEL OPERATOR) Pathologist [facility] Hgb A1C 6.6(H) 4.0 - 5.6 % [facility] Comment:Testing performed by : [address] [address] Estimated Average Glucose 143 mg/dL [facility] Comment: The ADA recommends reporting an estimated Average Glucose (eAG) with all Hemoglobin A1c results using the equation derived from a study of 507 normal and diabetic adults. ??Minority populations were underrepresented and children were not included. ?? (Diabetes Care 31:4457-8746, 2008). ??The eAG is not equivalent to a fasting glucose. Testing performed by: [address] [address] Blood 03/13/2023 3:1 6 PM CLAM SHOVEL OPERATOR 03/13/2023 5:00 PM CLAM SHOVEL OPERATOR us James Gentile MD LAB BLOOD ORDERABLES Final R esult Performing Organization Address [facility] Co de Phone Number [facility] [address] [facility] [employer] [address] * Screening Mammogram Bilateral W Saul (01/31/2023 2:03 PM CLAM SHOVEL OPERATOR) Anatomical Region Laterality Modality Breast Bilateral Mammography Impressions 01/31/2023 2:16 PM CLAM SHOVEL OPERATOR BI-RADS?? ATLAS category (overall): 2 - Benign There is no mammographic evidence of malignancy. A 1 year screening mammogram is recommended. The patient has been or will be contacted. We recommend annual screening mammography for women at average risk of breast cancer beginning at age 40, based on guidelines of the [employer] (ACR Practice Parameter for the Performance of Screening and Diagnostic Mammography) and [employer]. For women with and elevated risk of breast cancer, please refer to the ACR Practice Parameter for specific screening recommendations. The patient will be entered into a reminder system with a target due date of 1 year for her next screening exam. Narrative 01/31/2023 2:16 PM CLAM SHOVEL OPERATOR Screening Mammogram Bilateral W Saul: 01/31/23 The [...] (03/10/2022) SCRIBED DIABETIC DILATED EYE EXAM Normal [facility] Provider HEALTH MAINTENANCE Final Result * COLONOSCOPY (09/22/2020) us Historical Provider HEALTH MAINTENANCE Final Result from Last 3 Months or Most Recently Relevant to Health Maintenance Insurance [employer] ACCESS OOS [facility] OOS BLUE ACCESS OOS Care Teams Cut Off Operator Scorer Relationship Specialty Start Date End Date Yari Castellano MD [address] [place] [id number] PCP - General Internal Medicine 01/18/24
--- OUTSIDE RECORDS SUMMARY | 2024-02-12 03:52 | XMS_ITS | Encounter Summary ---
Author Organization [facility] Address [address] [place] [address] Care Team Providers Care Medical Legal Investigator Name Role Phone James Gentile MD Primary Care Provider + [phone] Reason for Visit * Reason Comments MAW Pt here for MAW Encounter Details Date Type Department Care Team (Latest Contact Info) Description 03/13/2023 1:30 PM STEAM CLEAN MACHINE OPERATOR Office Visit [facility] Primary Care [address] [place] [phone] James Gentile MD [address] [place] [id number] Acquired hypothyroidism (Primary Dx); Class 2 severe obesity due to excess calories with serious comorbidity and body mass index (BMI) of 36.0 to 36.9 in adult (HCC); Abdominal pain Social History Tobacco Use Types Packs/Day Years [...] points, staff should administer the PHQ-9) 0 03/13/2023 Personal Safety Answer Date Recorded Have you [...] Sign Reading Time Taken Comments Blood Pressure 142/78 03/13/2023 2:04 PM STEAM CLEAN MACHINE OPERATOR Pulse 65 03/13/2023 2:04 PM STEAM CLEAN MACHINE OPERATOR Temperature 36.7 ??C (98.1 ??F) 03/13/2023 2:04 PM CS T Respiratory Rate 18 03/13/2023 2:04 PM STEAM CLEAN MACHINE OPERATOR Oxygen Saturation 99% 03/13/2023 2:04 PM STEAM CLEAN MACHINE OPERATOR Inhaled Oxygen Concentration - - Weight 100.9 kg (222 lb 6.4 oz) 03/13/2023 2:04 PM STEAM CLEAN MACHINE OPERATOR Height 162.6 cm (5' 4 ) 03/13/2023 2:04 PM STEAM CLEAN MACHINE OPERATOR Body Mass Index 38.17 03/13/2023 2:04 PM STEAM CLEAN MACHINE OPERATOR documented in this encounter Patient Instructions * Patient Instructions* James Gentile MD - 03/13/2023 1:30 PM STEAM CLEAN MACHINE OPERATOR Change injection site to thigh due to heartburn and gauge improbment. After next injection of 2.5. then up to 5 and see different. If worse/recurs then start nexium daily. 2-3months after thyroid had time to adjust to those chanes recheck agin. M CLEAN MACHINE OPERATOR documented in this encounter Ordered Prescriptions Prescription Sig Dispense Quantity Refills Last Filled Start Date End Date tirzepatide (Mounjaro) 5 mg/0.5 mL pen injector Inject 5 mg under the skin every 7 days 2 mL 5 03/13/2023 04/11/2023 documented in this encounter Progress Notes * James Gentile MD - 03/13/2023 1:30 PM CST Images from the original note were not included. Todays Encounter Date: 03/13/2023 Last visit: 12/13/2022 All Appts with PCP recent/future) Next/future visit with Care Team Recent Visits Date Type Provider Dept 12/13/22 Office Visit James Gentile MD [facility] [place] [facility] 09/27/22 Office Visit James Gentile MD [facility] [place] [facility] Showing recent visits within past 180 days and meeting all other requirements Today's Visits Date Type Provider Dept 03/13/23 Office Visit James Gentile MD [facility] [place] 250 Showing today's visits and meeting all other requirements Future Appointments Date Type Provider Dept 04/11/23 Appointment James Gentile MD [facility] [place] 250 05/14/23 Appointment James Gentile MD [facility] [place] 250 07/10/23 Appointment James Gentile MD [facility] [place] 250 Showing future appointments within next 180 days and meeting all other requirements Future Appointments Date Time Provider Department Center 04/11/2023 1:30 PM James Gentile MD PCP IM 250 PC 05/14/2023 1:30 PM James Gentile MD PCP IM 250 PC 07/10/2023 2:00 PM James Gentile MD PCP IM 250 PC 12/06/2023 1:40 PM Latrice Freedman NP [facility] 12B [facility]O Patient ID: Kimberly Isabel is a 62 y.o. female. Chief Complaint. Chief Complaint Patient presents with MAW Pt here for MAW Patient Care Team: James Gentile MD as PCP - General (Internal Medicine) HPI/ROS. Patient is a 62 y.o. female here for follow up on chronic conditions History obtained from patient Todays Encounter: 03/13/2023 Ozempic. 6 injections. Supppressed apetite. Heartburn for 24 hrs. No carbonated. Iced tea crystal lite. Lost 2.5% ie 6 pounds 175 daily except for Sunday. From 175 alternating with 125. Same time as mounjaro began. 12/13/2022 Review of Systems: See HPI. 14 point [...] gummies Sexual activity: Not Currently Alcohol Use: Not At Risk (05/01/2022) AUDIT-C Frequency of Alcohol Consumption: Monthly or less Average Number of Drinks: Patient does not drink Frequency of Binge Drinking: Never Family History Problem Relation Age of Onset Cancer Mother Other (Cerebrial Hemmorage) Father Breana's disease Brother Current Medications and Allergies: Allergies Allergen Reactions Milnacipran Unknown Trazodone Unknown Vilazodone Unknown Outpatient Encounter Medications as of 03/13/2023 Medication Sig Dispense Refill cetirizine (ZyrTEC) 10 mg tablet Take 1 tablet (10 mg total) by mouth daily cholecalciferol (VITAMIN D-3) 25 mcg (1,000 unit) tablet Take 1 tablet (1,000 Units total) by mouthdaily clobetasoL (TEMOVATE) 0.05 % ointment Apply topically levothyroxine (SYNTHROID) 125 mcg tablet Take 1 tablet (125 mcg total) by mouth daily 90 tablet 4 multivitamin tablet Take 1 tablet by mouth daily ursodioL (GENOVEVA FORTE) 500 mg tablet TAKE 1 TABLET 3 TIMES A DAY 270 tablet 1 [DISCONTINUED] Mounjaro 2.5 mg/0.5 mL pen injector INJECT 0.5 ML (2.5 MG TOTAL) UNDER THE SKIN ONCEA WEEK, THEN INCREASE TO 5 MG tirzepatide (Mounjaro) 5 mg/0.5 mL pen injector Inject 5 mg under the skin every 7 days 2 mL 5 [DISCONTINUED] levothyroxine (SYNTHROID) 100 mcg tablet Take 1 tablet (100 mcg total) by mouth daily (Patient taking differently: Take 0.5 tablets (50 mcg total) by mouth every other day) 90 tablet 4 No facility-administered encounter medications on file as of 03/13/2023. Physical Exam: Constitutional: Body mass index is 38.17 kg/m??. Vitals: 03/13/23 1404 BP: 142/78 Pulse: 65 Resp: 18 Temp: 36.7 ??C (98.1 ??F) SpO2: 99% Weight: 100.9 kg (222 lb 6.4 oz) Height: 162.6 cm (5' 4 ) Epigastric tender. Results/Data: Old records were reviewed. I have personally reviewed the below Data Results for orders placed or performed in visit on 12/13/22 DIABETES EYE EXAM Result Value Ref Range SCRIBED DIABETIC DILATED EYE EXAM Normal No results found. Diagnosis: 1. Acquired hypothyroidism 2. Primary biliary cirrhosis (HCC) 3. Class 2 severe obesity due to excess calories with serious comorbidity and body mass index (BMI)of 36.0 to 36.9 in adult (HCC) 4. Abdominal pain Assessment/Plan DIAGNOSES/ASSESSMENT Diagnoses and all orders for this visit: Acquired hypothyroidism (E03.9) (Primary) - Thyroid Function Stephens; Future - Amylase; Future - Lipase; Future - Comprehensive metabolic panel; Future - Hemoglobin A1c; Future Primary biliary cirrhosis (HCC) (K74.3) - Thyroid Function Stephens; Future - Amylase; Future - Lipase; Future - Comprehensive metabolic panel; Future - Hemoglobin A1c; Future Class 2 severe obesity due to excess calories with serious comorbidity and body mass index (BMI) of36.0 to 36.9 in adult (HCC) (E66.01, Z68.36) - Thyroid Function Stephens; Future - Amylase; Future - Lipase; Future - Comprehensive metabolic panel; Future - Hemoglobin A1c; Future Abdominal pain (R10.9) - Thyroid Function Stephens; Future - Amylase; Future - Lipase; Future - Comprehensive metabolic panel; Future - Hemoglobin A1c; Future Other orders - tirzepatide (Mounjaro) 5 mg/0.5 mL pen injector; Inject 5 mg under the skin every 7 days No problem-specific Assessment & Plan notes found for this encounter. Change injection site to thigh due to heartburn and gauge improbment. After next injection of 2.5. then up to 5 and see different. If worse/recurs then start nexium daily. 2-3months after thyroid had time to adjust to those chanes recheck agin. PLAN & MEDICATION MANAGEMENT Orders Placed This Encounter Thyroid Function Stephens Amylase Lipase Comprehensive metabolic panel Hemoglobin A1c DISCONTD: Mounjaro 2.5 mg/0.5 mL pen injector tirzepatide (Mounjaro) 5 mg/0.5 mL pen injector Medication Management I have discontinued Kimberly Isabel's Mounjaro. I am also having her start on Mounjaro. Additionally, I am having her maintain her multivitamin, cholecalciferol, cetirizine, clobetasoL, levothyroxine, and ursodioL. James Gentile MD M CLEAN MACHINE OPERATOR documented in this encounter Miscellaneous Notes * Assessment & Plan Note - James Gentile MD - 03/13/2023 9:36 PM STEAM CLEAN MACHINE OPERATOR Associated Problem(s): Class 2 severe obesity due to excess calories with serious comorbidity and body mass index (BMI) of 36.0 to 36.9 in adult (HCC) Slowly losing weight. Discussed changing injection site due to abdominal pain and rule out pancreatitis due to being on GLP 1 see below M CLEAN MACHINE OPERATOR * Assessment & Plan Note - James Gentile MD - 03/13/2023 9:35 PM STEAM CLEAN MACHINE OPERATOR Associated Problem(s): Acquired hypothyroidism Recheck TSH last checked 10/04 normal. Advised regarding TSH and thyroid functioning may fluctuate based on antacid use, changes in absorption due to DLP 1 M CLEAN MACHINE OPERATOR documented in this encounter Plan of Treatment Not on file documented as of this encounter Results * (ABNORMAL) Hemoglobin A1c (03/13/2023 3:16 PM STEAM CLEAN MACHINE OPERATOR) Hgb A1C 6.6(H) 4.0 - 5.6 % [facility] Comment:Testing performed by : [facility], [address] [place] [address], [place]., [address] Estimated Average Glucose 143 mg/dL ZENOBIA SALINAS Comment: The ADA recommends reporting an estimated Average Glucose (eAG) with all Hemoglobin A1c results using the equation derived from a study of 507 normal and diabetic adults. ??Minority populations were underrepresented and children were not included. ?? (Diabetes Care 31:0115-6503, 2008). ??The eAG is not equivalent to a fasting glucose. Testing performed by: [address] [address] Blood 03/13/2023 3:16 PM STEAM CLEAN MACHINE OPERATOR 03/13/2023 5:00 PM STEAM CLEAN MACHINE OPERATOR us James Gentile MD LAB BLOOD ORDERABLES Final R esult ZENOBIA SALINAS [address] [facility] Department [place] [address] * (ABNORMAL) Comprehensive metabolic panel (03/13/2023 3:16 PM STEAM CLEAN MACHINE OPERATOR) Sodium 141 135 - 145 mmol/L ZENOBIA SALINAS Comment:Testing performed by : [address] [address] Potassium, pl 3.9 3.3 - 4.9 mmol/L [facility]ENOBIA SALINAS Comment:Testing performed by : [address] [address] Chloride 104 97 - 110 mmol/L [facility]ENOBIA Comment:Testing performed by : [address] [address] CO2 24 22 - 32 mmol/L [facility] Comment:Testing performed by : [address] [address] Anion gap 13 2 - 15 mmol/L [facility] Comment:Testing performed by : [address] [address] BUN 11 6 - 25 mg/dL [facility]ENOBIA SALINAS Comment:Testing performed by : [address] [address] Creatinine 0.70 0.60 - 1.10 mg/dL [facility]OBIA Comment:Testing performed by : [address] [address] Glucose 108 70 - 199 mg/dL ZENOBIA Comment: Interpretive Data Fasting glucose >/= 126 mg/dl is diagnostic for diabetes. ?? Fasting is defined as no caloric intake for at least 8 hours. Fasting glucose between 100 mg/dl to 125 mg/dl is diagnostic of prediabetes. In a patient with classic symptoms of hyperglycemia or hyperglycemic crisis, a random glucose >/= 200 mg/dl is diagnostic for diabetes. In the absence of unequivocal hyperglycemia, results should be confirmed by repeat testing. The classification and Diagnosis of Diabetes Diabetes Care 2021; 46: S19-S40. Current interpretive data was last revised 2022. Testing performed by: [address] [address] Calcium 9.1 8.5 - 10.3 mg/dL ZENOBIA Comment:Testing performed by : [address] [address] Bilirubin, total 0.5 0.1 - 1.2 mg/dL ZENOBIA Comment:Testing performed by : [address] [address] Protein, pl 7.1 6.5 - 8.5 g/dL [facility] Comment:Testing performed by : [address] [address] Albumin 4.1 3.5 - 5.0 g/dL [facility] Comment:Testing performed by : [address] [address] Alk phos 167(H) 40 - 130 Units/L [facility] Comment:Testing performed by : [address] [address] ALT 25 7 - 45 Units/L [facility] Comment:Testing performed by : [address] [address] AST 28 10 - 45 Units/L [facility]IA Comment:Testing performed by : [address] [address] Blood 03/13/2023 3:16 PM STEAM CLEAN MACHINE OPERATOR 03/13/2023 5:01 PM STEAM CLEAN MACHINE OPERATOR us James Gentile MD LAB BLOOD ORDERABLES Final R esult Performing Organization Address City/[facility]/ZIP Co de Phone Number [address] [address] * Lipase (03/13/2023 3:16 PM STEAM CLEAN MACHINE OPERATOR) Lipase 54 10 - 99 Units/L [facility]OBIA Comment:Testing performed by : [address] [address] Blood 03/13/2023 3:16 PM STEAM CLEAN MACHINE OPERATOR 03/13/2023 5:01 PM STEAM CLEAN MACHINE OPERATOR us James Gentile MD LAB BLOOD ORDERABLES Final R esult Performing Organization Address [facility] Co de Phone Number DEAN[address] [place] [address] * Amylase (03/13/2023 3:16 PM STEAM CLEAN MACHINE OPERATOR) Amylase 67 30 - 99 Units/L [facility] Comment:Testing performed by : [address] [address] Blood 03/13/2023 3:16 PM STEAM CLEAN MACHINE OPERATOR 03/13/2023 5:01 PM STEAM CLEAN MACHINE OPERATOR us James Gentile MD LAB BLOOD ORDERABLES Final R esult Performing Organization Address City/[facility] Co de Phone Number DEAN[address] [place] [address] * Thyroid Function Stephens (03/13/2023 3:16 PM STEAM CLEAN MACHINE OPERATOR) TSH 2.65 0.30 - 4.20 mcIUnit/mL [facility] Comment:Testing performed by : [address] [address] Blood 03/13/2023 3:16 PM STEAM CLEAN MACHINE OPERATOR 03/13/2023 5:01 PM STEAM CLEAN MACHINE OPERATOR us James Gentile MD LAB BLOOD ORDERABLES Final R esult [facility] [address] [facility] Department [place] [address] documented in this encounter Visit Diagnoses Diagnosis Acquired hypothyroidism- Primary Unspecified hypothyroidism Class 2 severe obesity due to excess calories with serious comorbidity and body mass index (BMI) of 36.0 to 36.9 in adult (HCC) Abdominal pain Abdominal pain, unspecified site documented in this encounter Discontinued Medications Medication Sig Discontinue Reason Start Date End Da te levothyroxine (SYNTHROID) 100 mcg tablet Take 1 tablet (100 mcg total) by mouth daily Therapy completed 09/09/2021 03/13/2023 Mounjaro 2.5 mg/0.5 mL pen injector INJECT 0.5 ML (2.5 MG TOTAL) UNDER THE SKIN ONCE A WEEK, THEN INCREASE TO 5 MG Therapy completed 02/23/2023 03/13/2023 documented as of this encounter Historical Medications * This list may reflect changes made after this encounter. Mounjaro 2.5 mg/0.5 mL pen injector INJECT 0.5 ML (2.5 MG TOTAL) UNDER THE SKIN ONCE A WEEK, THEN INCREASE TO 5 MG 02/23/2023 03/13/2023 added in this encounter Care Teams Medical Legal Investigator Relationship Specialty Start Date End Date James Gentile MD [address] [place] [address] PCP - General Internal Medicine 03/01/22 01/17/24 documented as of this encounter
--- OUTSIDE RECORDS SUMMARY | 2024-02-12 03:52 | XMS_ITS | Encounter Summary ---
Author Organization [facility] Address [address] [place] [address] Phone Care Team Providers Care Terrazzo Supervisor Name Role Phone James Gentile MD Primary Care Provider + [phone] Reason for Visit * Reason Onset Date Comments LABS DUE 03/05/2023 Encounter Details Date Type Department Care Team (Late st Contact Info) Description 03/05/2023 Telephone [facility] Gastroenterology [address] [facility] 12th [place] [address] [place] [address] Yina Aviles LABS DUE MAR Social History Tobacco Use Types Packs/Day Years [...] as of this encounter Miscellaneous Notes * Addendum Note - Arron Whiteside - 03/13/2023 3:14 PM CSTAddended by: ARRON WHITESIDE on: 03/13/2023 03:14 PM Modules accepted: Orders ING ENGINEER * Telephone Encounter - Yina Aviles - 03/05/2023 8:59 AM CST Orders mailed on 03.05.2023 ----- Message from Beba Briceño RN sent at 01/22/2023 11:11 AM MOLDING ENGINEER ----- Regarding: HFP and GGT in March 2023 HFP and GGT in March 2023 Dx: PBC ING ENGINEER ING ENGINEER documented in this encounter Plan of Treatment Not on file documented as of this encounter Results * (ABNORMAL) Hepatic function panel (03/13/2023 3:17 PM MOLDING ENGINEER) [facility] Bilirubin, total 0.5 0.1 - 1.2 mg/dL ZENOBIA SALINAS Comment:Testing performed by : [address] [address] Bilirubin, direct <0.2 0.1 - 0.3 mg/dL ZENOBIA SALINAS Comment:Testing performed by : [address] [address] Protein, pl 7.1 6.5 - 8.5 g/dL ZENOBIA Comment:Testing performed by : [address] [address] Albumin 4.2 3.5 - 5.0 g/dL [facility]IA Comment:Testing performed by : [address] [address] Alk phos 162(H) 40 - 130 Units/L ZENOBIA SALINAS Comment:Testing performed by : [address] [address] ALT 24 7 - 45 Units/L ZENOBIA Comment:Testing performed by : [facility], [address] [place] [address]., [address] AST 27 10 - 45 Units/L ZENOBIA Comment:Testing performed by : [facility], [address] [place] [address]., [address] Blood 03/13/2023 3:17 PM MOLDING ENGINEER 03/13/2023 5:01 PM MOLDING ENGINEER Narrative [facility] - 03/13/2023 5:47 PM MOLDING ENGINEER MARTIN, Please take these orders to any lab to be completed in March . ?? If you do not use a [facility] lab, please call [phone] when you complete the lab with the name of the lab so we can obtain results. Please fax results to [phone] call [phone] with any questions. Latrice Freedman NP LAB BLOOD ORDERABLES Fin al Result Performing Organization Address [facility] Co de Phone Number [address] [place] [address] * Gamma GT (03/13/2023 3:17 PM MOLDING ENGINEER) GGT 19 5 - 35 Units/L [facility]IA Blood 03/13/2023 3:17 PM MOLDING ENGINEER 03/13/2023 6:20 PM MOLDING ENGINEER Narrative [facility] - 03/13/2023 6:45 PM MOLDING ENGINEER MARTIN, Please take these orders to any lab to be completed in March . ?? If you do not use a [facility] lab, please call [phone] when you complete the lab with the name of the lab so we can obtain results. Please fax results to [phone] call [phone] with any questions. Latrice Freedman NP LAB BLOOD ORDERABLES Fin al Result Performing Organization Address City/[facility]/ZIP Co de Phone Number [address] [place] [address] documented in this encounter Visit Diagnoses Diagnosis Primary biliary cirrhosis (HCC)- Primary Biliary cirrhosis Elevated alkaline phosphatase level Elevated alkaline phosphatase level Primary biliary cirrhosis (HCC) Biliary cirrhosis documented in this encounter Care Teams Terrazzo Supervisor Relationship Specialty Start Date End Date James Gentile MD [address] [place] [address] PCP - General Internal Medicine 03/01/22 01/17/24 documented as of this encounter
--- OUTSIDE RECORDS SUMMARY | 2024-02-12 03:52 | XMS_ITS | Encounter Summary ---
Author Organization [facility] Address [address] [place] [address] Phone Care Team Providers Care Product Development Specialist Name Role Phone James Gentile MD Primary Care Provider [phone] Encounter Details Date Type Department Care Team (Late st Contact Info) Description 07/11/2023 Telephone [facility] Gastroenterology [address] [place] [address] 12th [place] [address] [place] [phone] Beba Briceño, RN Social History Tobacco Use Types Packs/Day Years Used Date Smoking Tobacco: Never Smokeless Tobacco: Never AUDIT-C Answer Date Recorded Frequency of Alcohol [...] Miscellaneous Notes * Telephone Encounter - Beba Briceño, JUNIE - 07/11/2023 8:04 AM CDT Latrice Freedman NP sent results to the patient via a [employer] Message. Delayed task to the pool toschedule the HFP in 4-6 months (October 2023-December 2023). ----- Message from Latrice Freedman NP sent at 07/10/2023 10:02 PM CDT ----- ALP remains elevated at 166. No ductal abn seen on imaging. Normal GGT. Imaging did show hepatic steatosis. Will continue to monitor with labs, rec weight loss. Repeat HFP in 4-6 months. Sent my chart message. documented in this encounter Plan of Treatment Not on file documented as of this encounter Visit Diagnoses Not on filedocumented in this encounter Care Teams Product Development Specialist Relationship Specialty Start Date End Date James Gentile MD [address] [place] [id number] PCP - General Internal Medicine 03/01/22 01/17/24 documented as of this encounter
--- OUTSIDE RECORDS SUMMARY | 2024-02-12 03:52 | XMS_ITS | Encounter Summary ---
Author Organization [facility] Address [address] [place] [address] Phone Care Team Providers Care Reed Maker Name Role Phone James Gentile MD Primary Care Provider + [phone] Encounter Details Date Type Department Care Team (Late st Contact Info) Description 12/04/2023 Telephone [facility] Gasteroenterology [facility] 12th [place] [address] [place] [address] Latrice Freedman, GABO [address] [place] [address] Social History Tobacco Use Types Packs/Day Years [...] encounter Miscellaneous Notes * Telephone Encounter - Latrice Freedman NP - 12/04/2023 8:32 PM CDT Reviewed case with Dr. Yip:I would not attribute her mildly elevated alk phos to biliary inflammation since her GGT is normal. You can request a bone specific alk phos and see if it is elevated. Has she had a recent Vit D/DEXA? I would not add seladelpar or elafibrinor at this point. Completed alk phos isoenzyme already and DEXA is normal. Will continue to monitor with labs. documented in this encounter Plan of Treatment Not on file documented as of this encounter Visit Diagnoses Not on filedocumented in this encounter Care Teams Reed Maker Relationship Specialty Start Date End Date James Gentile MD [address] [place] [address] PCP - General Internal Medicine 03/01/22 01/17/24 documented as of this encounter
--- OUTSIDE RECORDS SUMMARY | 2024-02-12 03:52 | XMS_ITS | Encounter Summary ---
Author Organization [facility] Healthcare Address [address] [place] [address] Care Team Providers Care Equipment Service Engineer Name Role Phone James Gentile MD Primary Care Provider + [phone] Encounter Details Date Type Department Care Team (Late st Contact Info) Description 07/10/2023 12:20 PM CDT Lab [facility] Building [address] [address] Hepatic vein stenosis Social History Tobacco Use Types Packs/Day Years [...] as of this encounter Miscellaneous Notes * Result Encounter Note - Latrice Freedman NP - 07/10/2023 10:02 PM CDT ALP remains elevated at 166. No ductal abn seen on imaging. Normal GGT. Imaging did show hepatic steatosis. Will continue to monitor with labs, rec weight loss. Repeat HFP in 4-6 months. Sent my chart message. documented in this encounter Plan of Treatment Not on file documented as of this encounter Procedures Procedure Name Priority Date/Time Associated Diagnosis Comments HEPATIC FUNCTION PANEL Routine 07/10/2023 12:33 PM CDT Hepatic vein stenosis documented in this encounter Results * (ABNORMAL) Hepatic function panel (07/10/2023 12:33 PM CDT) Bilirubin, total 0.6 0.1 - 1.2 mg/dL Comment:Testing performed by : [address] [address] Bilirubin, direct <0.2 0.1 - 0.3 mg/dL ZENOBIA Comment:Testing performed by : [address] [address] Protein, pl 6.9 6.5 - 8.5 g/dL ZENOBIA Comment:Testing performed by : [address] [address] Albumin 4.0 3.5 - 5.0 g/dL ZENOBIA Comment:Testing performed by : [address] [address] Alk phos 166(H) 40 - 130 Units/L ZENOBIA Comment:Testing performed by : [address] [address] ALT 17 7 - 45 Units/L ZENOBIA Comment:Testing performed by : [address] [address] AST 22 10 - 45 Units/L ZENOBIA Comment:Testing performed by : [address] [address] Blood 07/10/2023 12:3 3 PM CDT 07/10/2023 1:43 PM CDT Latrice Freedman INVESTIGATOR INTERNAL AFFAIRS LAB BLOOD ORDERABLES Fin al Result Z[facility]OB[facility] Department [place] [address] documented in this encounter Visit Diagnoses Diagnosis Hepatic vein stenosis Compression of vein documented in this encounter Care Teams Equipment Service Engineer Relationship Specialty Start Date End Date James Gentile MD [address] [place] [id number] PCP - General Internal Medicine 03/01/22 01/17/24 documented as of this encounter
--- OUTSIDE RECORDS SUMMARY | 2024-02-12 03:52 | XMS_ITS | Encounter Summary ---
Author Organization [facility] Healthcare Address [address] [place] [address] Care Team Providers Care Cloth Covered Helmet Puller Name Role Phone James Gentile MD Primary Care Provider + [phone] Reason for Visit * Reason Onset Date Comments Authorization/Certification 01/15/2024 Encounter Details Date Type Department Care Team ([facility] st Contact Info) Description 01/15/2024 Telephone [facility] Medical Group Primary Care [address] [address] James Gentile MD [address] [address] Authorization/Certifica tion Social History Tobacco Use Types Packs/Day Years [...] on file documented as of this encounter Ordered Prescriptions Prescription Sig Dispense Quantity Refills Last Filled Start Date End Date tirzepatide (Mounjaro) 10 mg/0.5 mL pen injector Inject 10 mg under the skin every 7 days 6 mL 01/16/2024 tirzepatide (Mounjaro) 10 mg/0.5 mL pen injector Inject 10 mg under the skin every 7 days 6 mL 01/16/2024 01/16/2024 documented in this encounter Miscellaneous Notes * Telephone Encounter - Christina Quinones MA - 01/16/2024 9:25 AM CST Medication sent to the pharmacy. Also note sent to pharmacy to let patient know Dr Gentile is no longer at this practice. O VISUAL ARTS DIRECTOR * Telephone Encounter - Vishnu Lilly - 01/15/2024 2:41 PM CST Prior Authorization for Medication Medication(s) Name/Dose: tirzepatide (Mounjaro) 10 mg/0.5 mL pen injector Is the patient out of the medication? yes Pharmacy that medication was sent to: [facility]/pharmacy #[id number] [facility] [address] Is insurance in chart accurate? yes Additional Comments: Does message need to be routed? Yes-Action Needed O VISUAL ARTS DIRECTOR documented in this encounter Plan of Treatment Not on file documented as of this encounter Visit Diagnoses Not on filedocumented in this encounter Discontinued Medications Medication Sig Discontinue Reason Start Date End Da te tirzepatide (Mounjaro) 10 mg/0.5 mL pen injector Inject 10 mg under the skin every 7 days Reorder 07/10/2023 01/16/2024 tirzepatide (Mounjaro) 10 mg/0.5 mL pen injector Inject 10 mg under the skin every 7 days 01/16/2024 01/16/2024 documented as of this encounter Care Teams Cloth Covered Helmet Puller Relationship Specialty Start Date End Date James Gentile MD [facility] [address] PCP - General Internal Medicine 03/01/22 01/17/24 documented as of this encounter
--- OUTSIDE RECORDS SUMMARY | 2024-02-12 03:52 | XMS_ITS | Encounter Summary ---
Author Organization [facility] Healthcare Address [address] [place] [address] Care Team Providers Care Marketing Intern Name Role Phone James Gentile MD Primary Care Provider + [phone] Encounter Details Date Type Department Care Team (Late st Contact Info) Description 03/13/2023 3:[address] [facility] Building [address] [address] Acquired hypothyroidism; Primary biliary cirrhosis (HCC); Class 2 severe obesity due to excess [...] Procedure Name Priority Date/Time Associated Diagnosis Comments EGFR Routine 03/13/2023 3:16 PM BURRING MACHINE OPERATOR Acquired hypothyroidism Primary biliary cirrhosis (HCC) Class 2 severe obesity due to excess calories with serious comorbidity and body mass index (BMI) of 36.0 to 36.9 in adult (HCC) Abdominal pain THYROID FUNCTION CASCADE Routine 03/13/2023 3:16 PM BURRING MACHINE OPERATOR Acquired hypothyroidism Primary biliary cirrhosis (HCC) Class 2 severe obesity due to excess calories with serious comorbidity and body mass index (BMI) of 36.0 to 36.9 in adult (HCC) Abdominal pain LIPASE Routine 03/13/2023 3:16 PM BURRING MACHINE OPERATOR Acquired hypothyroidism Primary biliary cirrhosis (HCC) Class 2 severe obesity due to excess calories with serious comorbidity and body mass index (BMI) of 36.0 to 36.9 in adult (HCC) Abdominal pain HEMOGLOBIN A1C Routine 03/13/2023 3:16 PM BURRING MACHINE OPERATOR Acquired hypothyroidism Primary biliary cirrhosis (HCC) Class 2 severe obesity due to excess calories with serious comorbidity and body mass index (BMI) of 36.0 to 36.9 in adult (HCC) Abdominal pain AMYLASE Routine 03/13/2023 3:16 PM BURRING MACHINE OPERATOR Acquired hypothyroidism Primary biliary cirrhosis (HCC) Class 2 severe obesity due to excess calories with serious comorbidity and body mass index (BMI) of 36.0 to 36.9 in adult (HCC) Abdominal pain COMPREHENSIVE METABOLIC PANEL Routine 03/13/2023 3:16 PM BURRING MACHINE OPERATOR Acquired hypothyroidism Primary biliary cirrhosis (HCC) Class 2 severe obesity due to excess calories with serious comorbidity and body mass index (BMI) of 36.0 to 36.9 in adult (HCC) Abdominal pain documented in this encounter Results * eGFR (03/13/2023 3:16 PM BURRING MACHINE OPERATOR) [facility] eGFR 98 mL/min/1. 73 m2 ZENOBIA SALINAS Comment: Interpretive Data Reference Interval Normal ?>/= [...] was last reviewed 2020. Testing performed by: [facility], [address] [place] [address]., [address] Blood 03/13/2023 3:16 PM BURRING MACHINE OPERATOR 03/13/2023 5:01 PM BURRING MACHINE OPERATOR us James Gentile MD LAB BLOOD ORDERABLES Final R esult ZENOBIA [address] [facility] Department [place] [address] * Thyroid Function Baraga (03/13/2023 3:16 PM BURRING MACHINE OPERATOR) TSH 2.65 0.30 - 4.20 mcIUnit/mL ZENOBIA SALINAS Comment:Testing performed by : [facility], [address] [place] [address]., [address] Blood 03/13/2023 3:16 PM BURRING MACHINE OPERATOR 03/13/2023 5:01 PM BURRING MACHINE OPERATOR us Jaems Gentile MD LAB BLOOD ORDERABLES Final R esult [address] [address] * Amylase (03/13/2023 3:16 PM BURRING MACHINE OPERATOR) Amylase 67 30 - 99 Units/L ZENOBIA Comment:Testing performed by : [address] [address] Blood 03/13/2023 3:16 PM BURRING MACHINE OPERATOR 03/13/2023 5:01 PM BURRING MACHINE OPERATOR us James Gentile MD LAB BLOOD ORDERABLES Final R esult Performing Organization Address [facility] Co de Phone Number [address] [address] * Lipase (03/13/2023 3:16 PM BURRING MACHINE OPERATOR) Lipase 54 10 - 99 Units/L ZENOBIA Comment:Testing performed by : [address] [address] Blood 03/13/2023 3:16 PM BURRING MACHINE OPERATOR 03/13/2023 5:01 PM BURRING MACHINE OPERATOR us James Gentile MD LAB BLOOD ORDERABLES Final R esult Performing Organization Address City/[facility]/ZIP Co de Phone Number [address] [address] * (ABNORMAL) Comprehensive metabolic panel (03/13/2023 3:16 PM BURRING MACHINE OPERATOR) Sodium 141 135 - 145 mmol/L ZENOBIA SALINAS Comment:Testing performed by : [address] [address] Potassium, pl 3.9 3.3 - 4.9 mmol/L ZENOBIA SALINAS Comment:Testing performed by : [address] [address] Chloride 104 97 - 110 mmol/L ZENOBIA Comment:Testing performed by : [address], [place]., [address] CO2 24 22 - 32 mmol/L ZENOBIA Comment:Testing performed by : [address], [place]., [address] Anion gap 13 2 - 15 mmol/L ZENOBIA Comment:Testing performed by : [address], [place]., [address] BUN 11 6 - 25 mg/dL ZENOBIA Comment:Testing performed by : [address], [place]., [address] Creatinine 0.70 0.60 - 1.10 mg/dL ZENOBIA Comment:Testing performed by : [address], [place]., [address] Glucose 108 70 - 199 mg/dL ZENOBIA [...] classification and Diagnosis of Diabetes Diabetes Care 202; 46: S19-S40. Current interpretive data was last revised 2022. Testing performed by: [address] [address] Calcium 9.1 8.5 - 10.3 mg/dL ZENOBIA Comment:Testing performed by : [address] [address] Bilirubin, total 0.5 0.1 - 1.2 mg/dL ZENOBIA Comment:Testing performed by : [address] [address] Protein, pl 7.1 6.5 - 8.5 g/dL ZENOBIA Comment:Testing performed by : [address], [place]., [address] Albumin 4.1 3.5 - 5.0 g/dL ZENOBIA Comment:Testing performed by : [address] [address] Alk phos 167(H) 40 - 130 Units/L ZENOBIA Comment:Testing performed by : [address] [address] ALT 25 7 - 45 Units/L ZENOBIA Comment:Testing performed by : [address] [address] AST 28 10 - 45 Units/L ZENOBAI Comment:Testing performed by : [address] [address] Blood 03/13/2023 3:16 PM BURRING MACHINE OPERATOR 03/13/2023 5:01 PM BURRING MACHINE OPERATOR us James Gentile MD LAB BLOOD ORDERABLES Final R esult Performing Organization Address City/[facility]/ZIP Co de Phone Number [facility] Department [place] [address] * (ABNORMAL) Hemoglobin A1c (03/13/2023 3:16 PM BURRING MACHINE OPERATOR) [facility] Hgb A1C 6.6(H) 4.0 - 5.6 % ZENOBIA Comment:Testing performed by : [address] [address] Estimated Average Glucose 143 mg/dL ZENOBIA Comment: The ADA recommends reporting an estimated Average Glucose (eAG) with all Hemoglobin A1c results using the equation derived from a study of 507 normal and diabetic adults. ??Minority populations were underrepresented and children were not included. ?? (Diabetes Care 31:6173-7000, 2008). ??The eAG is not equivalent to a fasting glucose. Testing performed by: [address] [address] Blood 03/13/2023 3:16 PM BURRING MACHINE OPERATOR 03/13/2023 5:00 PM BURRING MACHINE OPERATOR us James Gentile MD LAB BLOOD ORDERABLES Final R esult Performing Organization Address City/[facility]/ZIP Co de Phone Number [facility] [address] [facility] Department [place] [address] documented in this encounter Visit Diagnoses Diagnosis Acquired hypothyroidism Unspecified hypothyroidism Primary biliary cirrhosis (HCC) Biliary cirrhosis Class 2 severe obesity due to excess calories with serious comorbidity and body mass index (BMI) of 36.0 to 36.9 in adult (HCC) Abdominal pain Abdominal pain, unspecified site documented in this encounter Care Teams Marketing Intern Relationship Specialty Start Date End Date James Gentile MD [address] [place] [id number] PCP - General Internal Medicine 03/01/22 01/17/24 documented as of this encounter
--- OUTSIDE RECORDS SUMMARY | 2024-02-12 03:52 | XMS_ITS | Encounter Summary ---
Author Organization [facility] Address [address] [place] [address] Phone Care Team Providers Care Cardiology Consultant Name Role Phone James Gentile MD Primary Care Provider + [phone] Encounter Details Date Type Department Care Team (Late st Contact Info) Description 03/15/2023 Telephone [facility] Gastroenterology [address] [place] [address] 12th [place] [address] [place] [address] Beba Briceño, JUNIE Social History [...] Telephone Encounter - Beba Briceño RN - 03/15/2023 12:25 PM STRAIGHTENING PRESS OPERATOR HELPER Latrice Freedman NP sent results to the patient via a [employer] Message. Delayed task to the pool toschedule the HFP in July 2023. ----- Message from Latrice Freedman NP sent at 03/15/2023 11:49 AM STRAIGHTENING PRESS OPERATOR HELPER ----- Labs reviewed. Alk phos remains elevated, likely from hepatic steatosis. No changes. Sent my chart message to repeat HFP in July. IGHTENING PRESS OPERATOR HELPER IGHTENING PRESS OPERATOR HELPER documented in this encounter Plan of Treatment Not on file documented as of this encounter Visit Diagnoses Not on filedocumented in this encounter Care Teams Cardiology Consultant Relationship Specialty Start Date End Date James Gentile MD [address] [place] [id number] PCP - General Internal Medicine 03/01/22 01/17/24 documented as of this encounter
--- OUTSIDE RECORDS SUMMARY | 2024-02-12 03:52 | XMS_ITS | Encounter Summary ---
Author Organization [facility] Address [address] [place] [address] Care Team Providers Care Sales Consulting Director Name Role Phone Unavailable Primary Care Provider Unavailabl e Encounter Details Date Type Department Care Team ([facility] [address] Contact Info) Description 02/01/2024 Orders Only [facility] Oncology and Hematology - [place] [address] [place] [address] Adan Arrington MD [address] [facility] [employer] [address] [place] [address] Social History Tobacco Use Types Packs/Day Years Used Date Smoking Tobacco: Never Smokeless Tobacco: Never Alcohol Use Standard Drinks/Week Comments Never 0 (1 standard drink = 0.6 oz pur e alcohol) Sex and Gender Information Value Date Recorded Sex Assigned at Not on file Gender Identity Not on file Sexual Orientation Not on file documented as of this encounter Plan of Treatment Upcoming Encounters Date Type Department Care Team (Late Contact Info) Description 02/18/2024 10:00 AM TIRE SHOP MECHANIC Office Visit [facility] Oncology and Hematology - [place] [address] [place] [address] Kamala Boggs MD [address] [place] [address] documented as of this encounter Procedures Procedure Name Priority Date/Time Associated Diagnosis Comments PET BONE IMG W CT SKL BSE MID THG Routine 01/31/2024 10:25 AM TIRE SHOP MECHANIC GLUCOSE LEVEL Routine 01/31/2024 8:51 AM TIRE SHOP MECHANIC documented in this encounter Results * PET BONE IMG W CT SKB MDTH (01/31/2024 10:25 AM TIRE SHOP MECHANIC) Anatomical Region Laterality Modality Other Adan Arrington MD PE ORDERABLES * GLUCOSE LEVEL (01/31/2024 8:51 AM TIRE SHOP MECHANIC) Blood Adan Arrington MD CHEMISTRY ORDERABLES documented in this encounter Visit Diagnoses Not on filedocumented in this encounter
--- OUTSIDE RECORDS SUMMARY | 2024-02-12 03:52 | XMS_ITS | Encounter Summary ---
Author Organization [facility] [employer] [facility] Address [address] [place] [address] Care Team Providers Care Tumbler Plater Name Role Phone Unavailable Primary Care Provider Unavailabl e Reason for Referral * Outpatient Surgery (Urgent) - Closed Specialty Diagnoses / Procedures Referred By Contac t Referred To Contact Diagnoses Malignant pleural effusion Procedures THORACENTESIS Kamala Boggs MD [address] [place] [address] [place] [address] Referral ID Status Reason Start Date Expiration Date V isits Requested Visits Authorized [id number] Closed STL CTS 02/04/2024 03/06/2025 1 1 STMENT CONSULTANT Encounter Details Date Type Department Care Team (Late st Contact Info) Description 02/04/2024 Orders Only [facility] Oncology [facility] [address] [place] [address] Kamala Boggs MD [address] [place] [address] Malignant pleural effusion (Primary Dx) Social History Tobacco Use Types Packs/Day Years [...] Encounters Date Type Department Care Team (Late st Contact Info) Description 02/18/2024 10:00 AM INVESTMENT CONSULTANT Office Visit [facility] Oncology [facility] [address] [place] [address] Kamala Boggs MD [address] [facility] [address] [place] [address] Scheduled Orders Name Type Priority Associated Diagnoses Orde r Schedule THORACENTESIS Procedures Routine Malignant pleural effusion Expected: 02/04/2024, Expires: 02/03/2025 documented as of this encounter Visit Diagnoses Diagnosis Malignant pleural effusion- Primary documented in this encounter
--- OUTSIDE RECORDS SUMMARY | 2024-02-12 03:52 | XMS_ITS | Encounter Summary ---
Author Organization [facility] ([facility] [employer] [facility] Address [address] [place] [address] Care Team Providers Care Lean Six Sigma Black Belt Name Role Phone Unavailable Primary Care Provider Unavailabl e Reason for Referral * PET Scan (Routine) - Closed Specialty Diagnoses / Procedures Referred By Contac t Referred To Contact Radiology Diagnoses Malignant pleural effusion Procedures PET TUMOR OR INFECTION IMG W CT SKB Adan Enamorado MD [address] [facility] [address] [place] [phone] [place] [address] Referral ID Status Reason Start Date Expiration Date V isits Requested Visits Authorized [id number] Closed STL CTS 01/24/2024 02/23/2025 1 1 RACT ASSISTANT Reason for Visit * Reason Comments Establish Care Encounter Details Date Type Department Care Team (Late st Contact Info) Description 01/24/2024 3:00 PM CONTRACT ASSISTANT Office Visit [facility] Oncology and Hematology [facility] [address] [facility] [address] [place] [address] Adan Arrington MD [address] [facility] [address] [place] [phone] Malignant pleural effusion (Primary Dx) Social History Tobacco Use Types Packs/Day Years Used Date Smoking Tobacco: Never Smokeless Tobacco: Never Tobacco Cessation:Counseling Given: Not Answered Alcohol Use Standard Drinks/Week Comments Never 0 (1 standard drink = 0.6 oz pur e alcohol) Sex and Gender Information Value Date Recorded Sex Assigned at Not on file Gender Identity Not on file Sexual Orientation Not on file documented as of this encounter Last Filed Vital Signs Vital Sign Reading Time Taken Comments Blood Pressure 112/65 01/24/2024 3:20 PM CONTRACT ASSISTANT Pulse 76 01/24/2024 3:20 PM CONTRACT ASSISTANT Temperature 36.6 ??C (97.8 ??F) 01/24/2024 3:20 PM CS T Respiratory Rate 16 01/24/2024 3:20 PM CONTRACT ASSISTANT Oxygen Saturation 96% 01/24/2024 3:20 PM CONTRACT ASSISTANT Inhaled Oxygen Concentration - - Weight 91.1 kg (200 lb 12.8 oz) 01/24/2024 3:20 PM CONTRACT ASSISTANT Height 162.6 cm (5' 4 ) 01/24/2024 3:20 PM CONTRACT ASSISTANT Body Mass Index 34.47 01/24/2024 3:20 PM CONTRACT ASSISTANT documented in this encounter Progress Notes * Adan Arrington MD - 01/24/2024 4:52 PM CST Hematology-oncology consult Note Requesting Physician Primary Care Physician No primary care provider on file. Problem list There is no problem list on file for this patient. Previous TREATMENT ? Measurable Disease ? Reason for Visit Kimberly Isabel is a 63 y.o. female who was referred for consultation for pleural effusion. History of present illness This is a pleasant 63-year-old female with history of type 2 diabetes, hypothyroidism, cholangitis and hyperlipidemia along with history of hyperthyroidism status post radioactive iodine ablation treatment came into the hospital with shortness of breath and dyspnea on exertion along with some dry cough on January 02 2024. She has a remote history of smoking for very short time. Denies any weight loss. There is a family history of colon cancer in the mother. Patient had CTA chest donethat showed large right-sided pleural effusion. There was also soft tissue attenuation posterior tothe right fourth rib measuring 17 x 24 mm. There was no lytic or blastic bone lesions. Patient had thoracentesis done with 1400 cc of fluid removed. Fluid cytology showed reactive mesothelial cells. Clinically she denies any other new complaints. She is getting slightly short of breath. Past Medical History Past Medical History: Diagnosis Date Arthritis Diabetes mellitus Hyperlipidemia SOB (shortness of breath) Tinnitus Surgical History Past Surgical History: Procedure Laterality Date BIOPSY THYROID HX BREAST BIOPSY HX SECTION 1978,1987 HX LIVER BIOPSY LUMBAR PUNCTURE DIAGNOSTIC 2022 Medications Current Outpatient Medications Medication Sig Dispense Refill clobetasoL (TEMOVATE) 0.05 % Ointment Apply to affected area see administration instructions. CALCIUM CARBONATE-VITAMIN D3 ORAL Take by mouth. ursodioL (GENOVEVA) 500 mg tablet Take 250 mg by mouth 2 times daily. rosuvastatin (CRESTOR) 5 mg tablet Take 5 mg by mouth daily. cetirizine (ZyrTEC) 10 mg tablet Take 10 mg by mouth daily. multivitamin (DAILY-RADHA) tablet Take 1 Tablet by mouth daily. [DISCONTINUED] Mounjaro 10 mg/0.5 mL Pen Injector Inject 10 mg by subcutaneous injection every 7 days. No current facility-administered medications for this visit. Allergies No Known Allergies Immunizations: There is no immunization history on file for this patient. Family History Family History Problem Relation Name Age of Onset No Known Problems Father Colon Cancer Mother No Known Problems Brother No Known Problems Sister No Known Problems Child No Known Problems Child Social History Social History Tobacco Use Smoking status: Never Smokeless tobacco: Never Substance Use Topics Alcohol use: Never Review of Systems Constitutional: Patient did not mention fever; no night sweats; no anorexia; no weight loss; no fatique NEENT: Patient did not mention headache; no change in vision; no change in hearing; no sore throat;no dysphagia Respiratory: Patient did not mention shortness of breath; no pleuritic chest pain; no cough; no hemoptysis Cardiac: Patient did not mention cardiac-like chest pain; no palpitations; no orthopnea; no PND; noDOE Breasts: Patient did not mention tenderness; no masses GI: Patient did not mention abdominal pain; no nausea; no vomiting; no diarrhea; no hematochezia; no melena : Patient did not mention dysuria; no frequency; no hesitancy; no hematuria AURIST: Musculosketetal: Patient did not mention bone pain; no arthralgia; no joint swelling; no myalgia; Skin: Patient did not mention pruritis; no rash; no petechiae; no ecchymoses Endocrine: Patient did not mention polydipsia; no polyuria; no unusual weight gain Neuro: Patient did not mention headache; no change in vision; no sensory changes; no muscle weakness; no confusion; no seizures Psych: Patient did not mention anxiety; no depression; Physical Exam Vitals: As per nursing note Constitutional: Well developed, well nourished, no acute distress, non-toxic appearance Teeth and gum. No signs of infection or swelling. Eyes: PERRL, conjunctiva normal HEENT: Atraumatic, external ears normal, nose normal, oropharynx moist, no pharyngeal exudates. no sinus tenderness Neck- normal range of motion, no tenderness, supple Respiratory: No respiratory distress, normal breath sounds, no rales, no wheezing Cardiovascular: Normal rate, normal rhythm, no murmurs, no gallops, no rubs GI: Soft, nondistended, normal bowel sounds, nontender, no splenomegaly, no hepatomegaly, no mass, no rebound, no guarding : No costovertebral angle tenderness Musculoskeletal: No edema, no tenderness, no deformities. Back- no tenderness Integument: Well hydrated, no rash, Digits and nails inspection normal Lymphatic: No lymphadenopathy noted Neurologic: Alert & oriented x 3, CN 2-12 normal, normal motor function, normal sensory function, no focal deficits noted Psychiatric: Speech and behavior appropriate ? labs No results found for this or any previous visit (from the past 24 hour(s)). Pathology ? Imaging & Other Studies Performance Status? Assessment / Plan: ? Large right sided pleural effusion. Patient is a pleasant 63-year-old female with historyof hyperthyroidism status post radioactive iodine ablation treatment along with type 2 diabetes, cholangitis and hypothyroidism admitted to the hospital with shortness of breath and dyspnea on exertion with dry cough. CTA chest showed large right-sided pleural effusion with right fourth rib soft tissue attenuation measuring 17 x 24 mm. Patient had right-sided thoracentesis done twice and showed reactive mesothelial cells with atypical lymphocytes. She denies any weight loss. She has no previoushistory of malignancy. She is getting somewhat more short of breath recently after the discharge. Luis Carlos worried about underlying malignancy. We will order PET scan. Based on the PET scan we will decide about biopsy. Follow-up in 2 weeks to discuss PET scan finding and further management. I answered all the questions to patient satisfaction. Hyperlipidemia. Patient is on Crestor. Thank you very much for allowing me to participate in Kimberly Isabel's evaluation and management. Please feel free to contact if I can be of any further assistance in your patient???s care requiring hematology or oncology evaluation. Sincerely, ? ? Adan Arrington M.D. cell TOBACCO COUNSELING She is not a tobacco/nicotine user. Adan Arrington MD ,01/24/2024 4:52 PM ? Total time spent 60 minutes, two third of the total time spent counseling patient [id number]. CC:? RACT ASSISTANT documented in this encounter Plan of Treatment Upcoming Encounters Date Type Department Care Team (Late st Contact Info) Description 02/18/2024 10:00 AM CONTRACT ASSISTANT Office Visit [facility] Oncology and Hematology - [place] [address] [place] [address] Kamala Boggs MD [address] [place] [address] Scheduled Orders Name Type Priority Associated Diagnoses Orde r Schedule PET TUMOR OR INFECTION IMG W CT SKB MDTH Imaging Routine Malignant pleural effusion 1 Occurrences starting 01/24/2024 until 01/23/2025 documented as of this encounter Visit Diagnoses Diagnosis Malignant pleural effusion- Primary documented in this encounter
--- OUTSIDE RECORDS SUMMARY | 2024-02-12 03:52 | XMS_ITS | Encounter Summary ---
Author Organization [facility] Address [address] [place] [address] Phone Care Team Providers Care Transit Planner Name Role Phone James Gentile MD Primary Care Provider + [phone] Reason for Visit * Reason Onset Date Comments Labs due late October 2023-December 2023 10/19/2023 Encounter Details Date Type Department Care Team (Late Contact Info) Description 10/19/2023 Telephone [facility] Injection Therapy [address] [facility] 12th [place] [address] [place] [address] Yina Aviles Labs due late October 2023-December 2023 Social History Tobacco Use Types Packs/Day Years [...] encounter Miscellaneous Notes * Telephone Encounter - Yina Aviles - 10/19/2023 8:29 AM CDT Orders mailed on 10.19.2023 ----- Message from Nurse Beba Muhammad sent at 07/11/2023 8:03 AM CDT ----- Regarding: HFP in 4-6 months (October 2023-December 2023) HFP in 4-6 months (October 2023-December 2023) Dx: PBC, elevated alk phos documented in this encounter Plan of Treatment Scheduled Orders Name Type Priority Associated Diagnoses Orde r Schedule Hepatic function panel Lab Routine Elevated alkaline phosphatase level Expected: 10/19/2023, Expires: 10/18/2024 documented as of this encounter Visit Diagnoses Diagnosis Elevated alkaline phosphatase level- Primary documented in this encounter Care Teams Transit Planner Relationship Specialty Start Date End Date James Gentile MD [address] [place] [id number] PCP - General Internal Medicine 03/01/22 01/17/24 documented as of this encounter
--- OUTSIDE RECORDS SUMMARY | 2024-02-12 03:52 | XMS_ITS | Encounter Summary ---
Author Organization [facility] Address [address] [place] [address] Phone Care Team Providers Care Bell Person Name Role Phone James Gentile MD Primary Care Provider + [phone] Encounter Details Date Type Department Care Team (Late st Contact Info) Description 12/03/2023 9:40 AM CDT Office Visit [facility] Gastroenterology [address] [place] [address] Medical Office Building [address], [address] [place] [address] Latrice Freedman NP [address] [place] [address] Primary biliary cirrhosis (HCC) (Primary Dx) Social History Tobacco Use Types [...] Sign Reading Time Taken Comments Blood Pressure 129/98 12/03/2023 9:45 AM CDT Pulse 73 12/03/2023 9:45 AM CDT Temperature 36.8 ??C (98.2 ??F) 12/03/2023 9:45 AM CD T Respiratory Rate - - Oxygen Saturation 100% 12/03/2023 9:45 AM CDT Inhaled Oxygen Concentration - - Weight 92.8 kg (204 lb 9.6 oz) 12/03/2023 9:45 A M CDT Height 162.6 cm (5' 4 ) 12/03/2023 9:45 AM CDT Body Mass Index 35.12 12/03/2023 9:45 AM CDT documented in this encounter Patient Instructions * Patient Instructions* Latrice Freedman NP - 12/03/2023 9:40 AM CDT It was nice to see you in clinic today and I appreciate you putting your trust in my care. If you had any lab tests or imaging studies today that we did not review in clinic, I will be either mailingor calling you with the results within the next two weeks. If you sign up for [employer], I can also post notes to you on that platform. If any further questions arise, please do not hesitate to contact my office with any questions. documented in this encounter Progress Notes * Latrice Freedman NP - 12/03/2023 9:40 AM CDT HEPATOLOGY CLINIC VISIT Kimberly Isabel Age: 63 y.o. Date of : 1960 Reason for Visit: PBC History of Present Illness: Kimberly Isabel is a 63 y.o. female who is here for PBC follow-up. She has a PMH of HTN, HLD, T2DM, hypothyroidism. Patient was previously being managed by GI in [place], reportedly diagnosed with PBC several years ago and has been on ursodiol 500 mg three times daily since then. Mot recent labs are from 07/10/23 with normal liver enzymes, alk phos 166. Prior labs also show normal GGT. Alk phos isoenzyme 12/22/22 showed predominantly liver. FibroScan 12/02/21 showed kPa 7.3, CAP 269. Due topersistently elevated ALP, she underwent US 01/18/23 that showed hepatic steatosis, no biliary ductal dilation. She was unable to get MRI/MRCP done due to cost and claustrophobia. Of note, she had a liver biopsy in 2017 that was re-read here. Results showed steatosis, not indicative of steatohepatitis. There is ductular reaction with fibrosis, concerning for biliary issue which raises suspicion for a biliary issue. There are no granulomata or portal inflammation noted. DEXA 01/18/23 was normal. Patient reports feeling well overall. She remain on mounjaro, has lost 20 lbs over the last year. She missed about 3 tablets of ursodiol weekly. She reports some constipation, has not taken anything for this. Patient feels well overall, has some fatigue. She denies abdominal pain, n/v/d, or other abnormal symptoms at this time. I reviewed patient's active problem list, medication list, allergies, family history, social history, health maintenance Patient Active Problem List Diagnosis Acquired hypothyroidism Essential (primary) hypertension Hyperlipidemia, mixed Non-toxic multinodular goiter Other hydrocephalus (HCC) Primary biliary cirrhosis (HCC) Fibromyalgia Family history of Leroy's disease Preventative health care Type 2 diabetes mellitus without complication, without long-term current use of insulin (CMS/HCC) (HCC) History of hydrocephalus Class 2 severe obesity due to excess calories with serious comorbidity and body mass index (BMI) of36.0 to 36.9 in adult (HCC) Elevated alkaline phosphatase level Psoriasis Past Medical History: Diagnosis Date Allergic Arthritis [...] Not Currently Alcohol Use: Not At Risk (12/03/2023) AUDIT-C Frequency of Alcohol Consumption: Never Average Number of Drinks: Patient does not drink Frequency of Binge Drinking: Not on file Family History Problem Relation Age of Onset Cancer Mother Other (Cerebrial Hemmorage) Father Leroy's disease Brother Current Outpatient Medications Medication Sig Dispense Refill atorvastatin (LIPITOR) 10 mg tablet Take 10 mg by mouth daily cetirizine (ZyrTEC) 10 mg tablet Take 10 mg by mouth daily cholecalciferol (VITAMIN D-3) 25 mcg (1,000 unit) tablet Take 1,000 Units by mouth daily clobetasoL (TEMOVATE) 0.05 % ointment Apply topically furosemide (LASIX) 20 mg tablet see administration instructions. Take one tablet 2-3 days per week in the morning for swelling levothyroxine (SYNTHROID) 100 mcg tablet Take 1 tablet (100 mcg total) by mouth daily 90 tablet 4 metFORMIN (GLUCOPHAGE) 500 mg tablet Take 1 tablet (500 mg total) by mouth 2 (two) times a day 180 tablet 0 multivitamin tablet Take 1 tablet by mouth daily traMADol ER (ULTRAM-ER) 300 mg 24 hr tablet TAKE 1 TABLET DAILY 30 tablet 2 triamterene-hydroCHLOROthiazide 37.5-25 mg per tablet TAKE 1 TABLET DAILY 30 tablet 1 ursodioL (GENOVEVA FORTE) 500 mg tablet TAKE 1 TABLET 3 TIMES A DAY 90 tablet 0 No current facility-administered medications for this visit. Review of Systems: As outlined in HPI; all other systems negative. Objective: BP 129/98 (BP Location: Left arm, Patient Position: Sitting) Pulse 73 Temp 36.8 ??C (98.2 ??F) (Temporal) Ht 162.6 cm (5' 4 ) Wt 92.8 kg (204 lb 9.6 oz) SpO2 100% BMI 35.12 kg/m?? General: Well-developed female in NAD. HEENT: NC/AT. PERRL. EOMI. MMM. Neck: Supple. No tenderness, enlargement, JVD or LAD noted. Lungs: CTAB. No wheezing or crackles heard. No respiratory distress. Heart: RRR. +S1, S2. No murmurs or gallops appreciated. Abdomen: Soft. NT/ND. BS active. No organomegaly. Ext/MS: No edema, cyanosis, or erythema. Good muscle strength and tone. Neuro: A&O x3. No focal deficits noted. Psych: Appears to have normal affect, mood, judgement, and insight. Skin: No obvious rashes or lesions noted. Data Review Lab Results Component Value Date WBC 7.5 07/10/2023 HGB 13.1 07/10/2023 HCT 38.3 07/10/2023 MCV 87.8 07/10/2023 LABPLAT 302 07/10/2023 Lab Results Component Value Date GLUCOSE 108 03/13/2023 CALCIUM 9.1 03/13/2023 SODIUM 141 03/13/2023 POTASSIUM 3.9 03/13/2023 CO2 24 03/13/2023 CHLORIDE 104 03/13/2023 BUNSER 11 03/13/2023 CREATININE 0.70 03/13/2023 Lab Results Component Value Date ALT 17 07/10/2023 AST 22 07/10/2023 ALKPHOS 166 (H) 07/10/2023 BILITOT 0.6 07/10/2023 Lab Results Component Value Date INR 1.0 04/18/2022 Imaging: I reviewed patient's lab results, imaging Assessment/Plan: Primary biliary cirrhosis (HCC) Patient with PBC. She has been on ursodiol since the time of her diagnosis. She should remain on ursodiol 500 mg three times daily. Will obtain HFP next month as well as TSH. Okay to continue with zyrtec for pruritis as that seems to help her. Given chronically elevated alk phos level, will discusswith attending as to whether she would be a candidate for another pharmacologic agent such as Selade lpar or Elafibrinor. She has hepatic steatosis, currently [...] and weight loss is necessary to treat patientswith MASLD. The data shows that overall weight loss is the wilson to improvement in the histopathological features of MASH. A combination of a low calorie diet (daily reduction by 500-1,000 kcal) and mod erate-intensity exercise provides the best chances of achieving and maintaining weight loss over time. Weight loss of at least 3%-5% of body weight appears necessary to improve steatosis, but a greater weight loss (7%-10%) is needed to improve the majority of the histopathological features of MASH,including fibrosis. She will return to clinic in 1 year. Latrice Freedman NP 12/03/2023 10:21 AM My total encounter time on 12/03/2023 was 31 minutes which was spent in the activities documented in the note. This includes time spent prior to the visit and after the visit in direct care of the patient. This time does not include time spent in any separately reportable services. documented in this encounter Miscellaneous Notes * Assessment & Plan Note - Latrice Freedman NP - 12/03/2023 10:05 AM CDT Associated Problem(s): Primary biliary cirrhosis (HCC) Patient with PBC. She has been on ursodiol since the time of her diagnosis. She should remain on ursodiol 500 mg three times daily. Will obtain HFP next month as well as TSH. Okay to continue with zyrtec for pruritis as that seems to help her. Given chronically elevated alk phos level, will discusswith attending as to whether she would be a candidate for another pharmacologic agent such as Selade lpar or Elafibrinor. She has hepatic steatosis, currently [...] and weight loss is necessary to treat patientswith MASLD. The data shows that overall weight loss is the wilson to improvement in the histopathological features of MASH. A combination of a low calorie diet (daily reduction by 500-1,000 kcal) and mod erate-intensity exercise provides the best chances of achieving and maintaining weight loss over time. Weight loss of at least 3%-5% of body weight appears necessary to improve steatosis, but a greater weight loss (7%-10%) is needed to improve the majority of the histopathological features of MASH,including fibrosis. She will return to clinic in 1 year. documented in this encounter Plan of Treatment Scheduled Orders Name Type Priority Associated Diagnoses Orde r Schedule Hepatic function panel Lab Routine Primary biliary cirrhosis (HCC) Expected: 12/03/2023, Expires: 12/02/2024 documented as of this encounter Visit Diagnoses Diagnosis Primary biliary cirrhosis (HCC)- Primary Biliary cirrhosis documented in this encounter Care Teams Bell Person Relationship Specialty Start Date End Date James Gentile MD [address] [place] [id number] PCP - General Internal Medicine 03/01/22 01/17/24 documented as of this encounter
--- OUTSIDE RECORDS SUMMARY | 2024-02-12 03:52 | XMS_ITS | Encounter Summary ---
Author Organization [facility] Address [address] [place] [address] Phone Care Team Providers Care Frame Stripper And Crusher Name Role Phone James Gentile MD Primary Care Provider + [phone] Encounter Details Date Type Department Care Team (Late st Contact Info) Description 07/17/2023 Telephone [facility] Gastroenterology [address] [place] [address] 12th [place] [address] [place] [phone] Yina Aviles Social History Tobacco Use Types Packs/Day Years [...] * Telephone Encounter - Yina Aviles - 07/17/2023 8:22 AM CDT Labs completed on 07.09-- due 4-6 mo ----- Message from Nurse Beba Muhammad sent at 03/15/2023 12:23 PM [employer] LABORATORY DIRECTOR ----- Regarding: HFP in July 2023 HFP in July 2023 Dx: hepatic steatosis documented in this encounter Plan of Treatment Not on file documented as of this encounter Visit Diagnoses Not on filedocumented in this encounter Care Teams Frame Stripper And Crusher Relationship Specialty Start Date End Date James Gentile MD [address] [place] [id number] PCP - General Internal Medicine 03/01/22 01/17/24 documented as of this encounter
--- OUTSIDE RECORDS SUMMARY | 2024-02-12 03:52 | XMS_ITS | Encounter Summary ---
Author Organization [facility] Healthcare Address [address] [place] [address] Care Team Providers Care Mold Carpenter Name Role Phone James Gentile MD Primary Care Provider + [phone] Reason for Visit * Reason Comments Follow-up Thyroid, chol, diabe yusra Encounter Details Date Type Department Care Team (Latest Contact Info) Description 05/14/2023 1:30 PM CDT Office Visit [facility] Medical Group Primary Care [address] [place] [phone] James Gentile MD [address] [place] [phone] Acquired hypothyroidism (Primary Dx); Type 2 diabetes mellitus without complication, without long-term current use of insulin ([facility]) ([facility]); Class 2 severe obesity due to excess calories with serious comorbidity and body mass index (BMI) of 36.0 to 36.9 in adult ([facility]); Hyperlipidemia, mixed; Essential (primary) hypertension; Hypothyroidism, unspecified type; Cartilage disease; Laboratory examination ordered as part of a complete physical examination; Other general symptoms and signs; Screening for cardiovascular condition; Psoriasis Social History Tobacco Use Types Packs/Day Years [...] points, staff should administer the PHQ-9) 0 05/14/2023 Personal Safety Answer Date Recorded Have you [...] Sign Reading Time Taken Comments Blood Pressure 122/72 05/14/2023 1:21 PM CDT Pulse 65 05/14/2023 1:21 PM CDT Temperature 36.8 ??C (98.3 ??F) 05/14/2023 1:21 PM CD T Respiratory Rate 16 05/14/2023 1:21 PM CDT Oxygen Saturation 97% 05/14/2023 1:21 PM CDT Inhaled Oxygen Concentration - - Weight 98.6 kg (217 lb 6.4 oz) 05/14/2023 1:21 P M CDT Height 162.6 cm (5' 4 ) 05/14/2023 1:21 PM CDT Body Mass Index 37.32 05/14/2023 1:21 PM CDT documented in this encounter Ordered Prescriptions Prescription Sig Dispense Quantity Refills Last Filled Start Date End Date clobetasoL (TEMOVATE) 0.05 % ointment Apply topically 2 (two) times a day 30 g 05/14/2023 documented in this encounter Progress Notes * James Gentile MD - 05/14/2023 1:30 PM CDT Images from the original note were not included. Todays Encounter Date: 05/14/2023 Last visit: 04/11/2023 All Appts with PCP recent/future) Next/future visit with Care Team Recent Visits Date Type Provider Dept 04/11/23 Office Visit James Gentile MD [place] [id number] 03/13/23 Office Visit James Gentile MD [facility] [place] [address] 12/13/22 [facility] [place] [facility] Showing recent visits within past 180 days and meeting all other requirements Today's Visits Date Type Provider Dept 05/14/23 Office Visit James Gentile MD [facility] [place] [address] Showing today's visits and meeting all other requirements Future Appointments Date Type Provider Dept 07/10/23 Appointment James Gentile MD [facility] [place] [facility] Showing future appointments within next 180 days and meeting all other requirements Future Appointments Date Time Provider Department Center 07/10/2023 2:00 PM James Gentile MD PCP [facility] 250 12/06/2023 1:40 PM Latrice Freedman, [facility] 12[facility] Patient ID: Kimberly Isabel is a 63 y.o. female. Chief Complaint. Chief Complaint Patient presents with Follow-up Thyroid, chol, diabetes Patient Care Team: James Gentile MD as PCP - General (Internal Medicine) HPI/ROS. Patient is a 63 y.o. female here for follow up on chronic conditions History obtained from patient Todays Encounter: 05/14/2023 Overall patient doing well. Did cheat over the holiday. Psoriasis has been acting up in her lower back and buttocks. Normally in the past responded to steroid cream. In the meantime has been using hydrocortisone [id number] which is partially helping 04/11/2023 Review of Systems: See HPI. 14 point [...] Vilazodone Unknown Outpatient Encounter Medications as of 05/14/2023 Medication Sig Dispense Refill cetirizine (ZyrTEC) 10 mg tablet Take 1 tablet (10 mg total) by mouth daily cholecalciferol (VITAMIN D-3) 25 mcg (1,000 unit) tablet Take 1 tablet (1,000 Units total) by mouthdaily levothyroxine (SYNTHROID) 175 mcg tablet Take 1 tablet (175 mcg total) by mouth daily 90 tablet 4 multivitamin tablet Take 1 tablet by mouth daily tirzepatide (MOUNJARO) 7.5 mg/0.5 mL pen injector Inject 7.5 mg under the skin every 7 days 6 mL 1 ursodioL (GENOVEVA FORTE) 500 mg tablet TAKE 1 TABLET 3 TIMES A DAY 270 tablet 1 [DISCONTINUED] clobetasoL (TEMOVATE) 0.05 % ointment Apply topically clobetasoL (TEMOVATE) 0.05 % ointment Apply topically 2 (two) times a day 30 g 0 No facility-administered encounter medications on file as of 05/14/2023. Physical Exam: Constitutional: Body mass index is 37.32 kg/m??. Vitals: 05/14/23 1321 BP: 122/72 BP Location: Right arm Patient Position: Sitting Pulse: 65 Resp: 16 Temp: 36.8 ??C (98.3 ??F) SpO2: 97% Weight: 98.6 kg (217 lb 6.4 oz) Height: 162.6 cm (5' 4 ) heart RRR and Lungs CTA scaly macule/plaque on lower back Results/Data: Old records were reviewed. I have personally reviewed the below Data Results for orders placed or performed in visit on 03/13/23 Hepatic function panel Result Value Ref Range Bilirubin, total 0.5 0.1 - 1.2 mg/dL Bilirubin, direct <0.2 0.1 - 0.3 mg/dL Protein, pl 7.1 6.5 - 8.5 g/dL Albumin 4.2 3.5 - 5.0 g/dL Alk phos 162 (H) 40 - 130 Units/L ALT 24 7 - 45 Units/L AST 27 10 - 45 Units/L Gamma GT Result Value Ref Range GGT 19 5 - 35 Units/L No results found. Diagnosis: 1. Acquired hypothyroidism 2. Type 2 diabetes mellitus without complication, without long-term current use of insulin ([facility]) ([facility]) 3. Class 2 severe obesity due to excess calories with serious comorbidity and body mass index (BMI)of 36.0 to 36.9 in adult ([facility]) 4. Hyperlipidemia, mixed 5. Essential (primary) hypertension 6. Hypothyroidism, unspecified type 7. Cartilage disease 8. Laboratory examination ordered as part of a complete physical examination 9. Other general symptoms and signs 10. Screening for cardiovascular condition 11. Psoriasis Assessment/Plan DIAGNOSES/ASSESSMENT Diagnoses and all orders for this visit: Acquired hypothyroidism (E03.9) (Primary) - Albumin, Random Urine without Creatinine; Future - Vitamin D 25 hydroxy; Future - Vitamin B12; Future - CBC with auto differential; Future - Lipid panel; Future Type 2 diabetes mellitus without complication, without long-term current use of insulin ([facility]) ([facility]) (E11.9) - Albumin, Random Urine without Creatinine; Future Class 2 severe obesity due to excess calories with serious comorbidity and body mass index (BMI) of36.0 to 36.9 in adult ([facility]) (E66.01, Z68.36) - Albumin, Random Urine without Creatinine; Future - Vitamin D 25 hydroxy; Future - Vitamin B12; Future - CBC with auto differential; Future - Lipid panel; Future Hyperlipidemia, mixed (E78.2) - Lipid panel; Future Essential (primary) hypertension (I10) Hypothyroidism, unspecified type (E03.9) - Albumin, Random Urine without Creatinine; Future - Vitamin D 25 hydroxy; Future - Vitamin B12; Future - CBC with auto differential; Future - Lipid panel; Future Psoriasis (L40.9) Comments: Lower back and buttocks. Occasionally hands Other orders - clobetasoL (TEMOVATE) 0.05 % ointment; Apply topically 2 (two) times a day No problem-specific Assessment & Plan notes found for this encounter. There are no Patient Instructions on file for this visit. PLAN & MEDICATION MANAGEMENT Orders Placed This Encounter CANCELED: Lipid panel Albumin, Random Urine without Creatinine Vitamin D 25 hydroxy Vitamin B12 CBC with auto differential Lipid panel clobetasoL (TEMOVATE) 0.05 % ointment Medication Management I have changed Kimberly Isabel's clobetasoL. I am also having her maintain her multivitamin, cholecalciferol, cetirizine, ursodioL, tirzepatide, and levothyroxine. 1. Hypothyroidism. Controlled on medications continue. Thyroid functioning tests recently checked and normal 2. Hypertension controlled with diet. Losing weight and using Mounjaro. 3. Diabetes since on Mounjaro and losing weight A1c is back under control to 6.6. Continue medication 4. Obesity-losing Mounjaro. Continue and follow up in 6-12 weeks 5. Psoriasis flaring. Trial of clobetasol. Explained in detail how to use James Gentile MD documented in this encounter Plan of Treatment Scheduled Orders Name Type Priority Associated Diagnoses Orde r Schedule Albumin, Random Urine without Creatinine Lab Routine Acquired hypothyroidism Type 2 diabetes mellitus without complication, without long-term current use of insulin ([facility]) ([facility]) Class 2 severe obesity due to excess calories with serious comorbidity and body mass index (BMI) of 36.0 to 36.9 in adult ([facility]) Hyperlipidemia, mixed Essential (primary) hypertension Hypothyroidism, unspecified type Cartilage disease Laboratory examination ordered as part of a complete physical examination Other general symptoms and signs Screening for cardiovascular condition Psoriasis Expected: 05/14/2023, Expires: 05/13/2024 documented as of this encounter Results * (ABNORMAL) Lipid panel (07/10/2023 12:32 PM CDT) Pathologist [facility] Cholesterol 273(H) 30 - 199 mg/dL Comment: [...] last revised on 2017. Testing performed by: [address] [address] Triglycerides 123 <=149 mg/dL [facility] Comment: Interpretive [...] last revised on 2017. Testing performed by: [address] [address] HDL 50 >=40 mg/dL [facility] Comment: Interpretive [...] last revised on 2017. Testing performed by: [address] [address] LDL, calculated 198(H) <=129 mg/dL [facility] Comment: [...] last revised on 2017. Testing performed by: [address] [address] Non-HDL Cholesterol 223 mg/dL [facility] Comment: Interpretive [...] last revised on 2017. Testing performed by: [address] [address] Chol/HDL ratio 5 [facility] Comment:Testing performed by : [address] [address] Blood 07/10/2023 12:3 2 PM CDT 07/10/2023 1:43 PM CDT us James Gentile MD LAB BLOOD ORDERABLES Final R esult [facility] [address] [facility] Department [place] [address] * CBC with auto differential (07/10/2023 12:32 PM CDT) Pathologist [facility] WBC 7.5 3.8 - 9.9 K/cumm Comment:Testing performed by : [address] [address] Hgb 13.1 11.9 - 15.5 g/dL [facility]OBIA Comment:Testing performed by : [address] [address] Hct 38.3 35.6 - 45.5 % ZENOBIA Comment:Testing performed by : [address] [address] Plt 302 150 - 400 K/cumm ZENOBIA Comment:Testing performed by : [address] [address] MPV 11.7 9.1 - 12.3 fL [facility]OBIA Comment:Testing performed by : [address] [address] RBC 4.36 3.90 - 5.20 M/cumm [facility]OBIA Comment:Testing performed by : [address] [address] MCV 87.8 81.3 - 96.4 fL [facility]OBIA Comment:Testing performed by : [address] [address] MCH 30.0 27.1 - 33.3 pg [facility]ENOBIA Comment:Testing performed by : [address], [address] MCHC 34.2 32.3 - 35.7 g/dL ZENOBIA SALINAS Comment:Testing performed by : [address] [address] RDW CV 12.4 11.1 - 14.9 % ZENOBIA SALINAS Comment:Testing performed by : [address] [address] RDW SD 39.3 35.7 - 48.1 fL ZENOBIA SALINAS Comment:Testing performed by : [address] [address] NRBC abs 0.00 0.00 - 0.01 K/cumm ZENOBIA Comment:Testing performed by : [address], [address] Blood 07/10/2023 12:3 2 PM CDT 07/10/2023 1:43 PM CDT us James Gentile MD LAB BLOOD ORDERABLES Final R esult Performing Organization Address City/[facility]/ZIP Co de Phone Number [address] [place] [address] * Vitamin B12 (07/10/2023 12:32 PM CDT) Pathologist [facility] Vitamin B12 371 230 - 1,250 pg/mL Comment:Testing performed by : [address] [address] Blood 07/10/2023 12:3 2 PM CDT 07/10/2023 1:43 PM CDT us James Gentile MD LAB BLOOD ORDERABLES Final R esult Performing Organization Address City/State/[facility] Co de Phone Number [address] [place] [address] * Vitamin D 25 hydroxy (07/10/2023 12:32 PM CDT) Pathologist [facility] Vitamin D 25-OH 76.0 30.0 - 80.0 ng/mL Blood 07/10/2023 12:3 2 PM CDT 07/10/2023 6:35 PM CDT us James Gentile MD LAB BLOOD ORDERABLES Final R esult [facility] [address] [facility] Department [place] [address] documented in this encounter Visit Diagnoses Diagnosis Acquired hypothyroidism- Primary Unspecified hypothyroidism Type 2 diabetes mellitus without complication, without long-term current use of insulin ([facility]) ([facility]) Class 2 severe obesity due to excess calories with serious comorbidity and body mass index (BMI) of 36.0 to 36.9 in adult (HCC) Hyperlipidemia, mixed Mixed hyperlipidemia Essential (primary) hypertension Unspecified essential hypertension Hypothyroidism, unspecified type Cartilage disease Laboratory examination ordered as part of a complete physical examination Other general symptoms and signs Screening for cardiovascular condition Screening for other and unspecified cardiovascular conditions Psoriasis Other psoriasis documented in this encounter Discontinued Medications Medication Sig Discontinue Reason Start Date End Da te clobetasoL (TEMOVATE) 0.05 % ointment Apply topically Reorder 05/14/2023 documented as of this encounter Care Teams Mold Carpenter Relationship Specialty Start Date End Date James Gentile MD [address] [place] [address] PCP - General Internal Medicine 03/01/22 01/17/24 documented as of this encounter
--- OUTSIDE RECORDS SUMMARY | 2024-02-12 03:52 | XMS_ITS | Encounter Summary ---
Author Organization [facility] Healthcare Address [address] [place] [address] Care Team Providers Care Salvage Laborer Name Role Phone James Gentile MD Primary Care Provider [phone] Reason for Visit * Reason Comments Follow-up 4 week follow up Encounter Details Date Type Department Care Team (Latest Contact Info) Description 04/11/2023 1:30 PM BRIDGE/STRUCTURE INSPECTION TEAM LEADER Office Visit [facility] Medical Group Primary Care [address] [place] [phone] James Gentile MD [address] [place] [address] Acquired hypothyroidism (Primary Dx); Type 2 diabetes mellitus without complication, without long-term current use of insulin ([facility]) ([facility]); Class 2 severe obesity due to excess calories with serious comorbidity and body mass index (BMI) of 36.0 to 36.9 in adult ([facility]); Hyperlipidemia, mixed Social History Tobacco Use Types Packs/Day Years [...] points, staff should administer the PHQ-9) 0 04/11/2023 Personal Safety Answer Date Recorded Have you [...] Sign Reading Time Taken Comments Blood Pressure 128/80 04/11/2023 1:27 PM BRIDGE/STRUCTURE INSPECTION TEAM LEADER Pulse 78 04/11/2023 1:27 PM BRIDGE/STRUCTURE INSPECTION TEAM LEADER Temperature 36.7 ??C (98 ??F) 04/11/2023 1:27 PM BRIDGE/STRUCTURE INSPECTION TEAM LEADER Respiratory Rate - - Oxygen Saturation 97% 04/11/2023 1:27 PM BRIDGE/STRUCTURE INSPECTION TEAM LEADER Inhaled Oxygen Concentration - - Weight 100.2 kg (221 lb) 04/11/2023 1:27 PM BRIDGE/STRUCTURE INSPECTION TEAM LEADER Height 162.6 cm (5' 4.02 ) 04/11/2023 1:27 PM CS T Body Mass Index 37.92 04/11/2023 1:27 PM BRIDGE/STRUCTURE INSPECTION TEAM LEADER documented in this encounter Ordered Prescriptions Prescription Sig Dispense Quantity Refills Last Filled Start Date End Date levothyroxine (SYNTHROID) 175 mcg tablet Take 1 tablet (175 mcg total) by mouth daily 90 tablet 4 04/11/2023 tirzepatide (MOUNJARO) 7.5 mg/0.5 mL pen injector Inject 7.5 mg under the skin every 7 days 6 mL 1 04/11/2023 07/10/2023 documented in this encounter Progress Notes * James Gentile MD - 04/11/2023 1:30 PM CST Images from the original note were not included. Future Appointments Date Time Provider Department Center 05/14/2023 1:30 PM James Gentile MD PCP IM 250 PC 07/10/2023 2:00 PM James Gentile MD PCP [facility] 250 PC 12/06/2023 1:40 PM Latrice Freedman NP [facility] 12[facility] Todays Encounter Date: 04/11/2023 Last visit: 03/13/2023 All Appts with PCP recent/future) Next/future visit with Care Team Recent Visits Date Type Provider Dept 04/11/23 Office Visit James Gentile MD [facility] [place] [address] 03/13/23 Office Visit James Gentile MD [facility] [place] [facility] 12/13/22 Office Visit James Gentile MD [facility] [place] [facility] Showing recent visits within past 180 days and meeting all other requirements Future Appointments Date Type Provider Dept 05/14/23 Appointment James Gentile MD [facility] [place] 250 07/10/23 Appointment James Gentile MD [facility] [place] 250 Showing future appointments within next 180 days and meeting all other requirements Future Appointments Date Time Provider Department Center 05/14/2023 1:30 PM James Gentile MD PCP IM 250 PC 07/10/2023 2:00 PM James Gentile MD PCP IM 250 PC 12/06/2023 1:40 PM Latrice Freedman NP GI [facility] 12[facility] Patient ID: Kimberly Isabel is a 63 y.o. female. Chief Complaint. Chief Complaint Patient presents with Follow-up 4 week follow up Patient Care Team: James Gentile MD as PCP - General (Internal Medicine) HPI/ROS. Patient is a 63 y.o. female here for follow up on chronic conditions History obtained from patient Todays Encounter: 04/11/2023 Esomeprazole- no more problems Frozen shoulder when moving and did physicial therapy. One day turned corner. No hot flashes. (Similar to prior oral DM meds). 03/13/2023 Review of Systems: See HPI. 14 point [...] Onset Cancer Mother Other (Cerebrial Hemmorage) Father Schleicher's disease Brother Current Medications and Allergies: Allergies Allergen Reactions Milnacipran Unknown Trazodone Unknown Vilazodone Unknown Outpatient Encounter Medications as of 04/11/2023 Medication Sig Dispense Refill cetirizine (ZyrTEC) 10 mg tablet Take 1 tablet (10 mg total) by mouth daily cholecalciferol (VITAMIN D-3) 25 mcg (1,000 unit) tablet Take 1 tablet (1,000 Units total) by mouthdaily clobetasoL (TEMOVATE) 0.05 % ointment Apply topically multivitamin tablet Take 1 tablet by mouth daily ursodioL (GENOVEVA FORTE) 500 mg tablet TAKE 1 TABLET 3 TIMES A DAY 270 tablet 1 [DISCONTINUED] levothyroxine (SYNTHROID) 125 mcg tablet Take 1 tablet (125 mcg total) by mouth daily 90 tablet 4 [DISCONTINUED] tirzepatide (Mounjaro) 5 mg/0.5 mL pen injector Inject 5 mg under the skin every 7 days 2 mL 5 levothyroxine (SYNTHROID) 175 mcg tablet Take 1 tablet (175 mcg total) by mouth daily 90 tablet 4 tirzepatide (MOUNJARO) 7.5 mg/0.5 mL pen injector Inject 7.5 mg under the skin every 7 days 6 mL 1 No facility-administered encounter medications on file as of 04/11/2023. Physical Exam: Constitutional: Body mass index is 37.92 kg/m??. Vitals: 04/11/23 1327 BP: 128/80 BP Location: Right arm Patient Position: Sitting Pulse: 78 Temp: 36.7 ??C (98 ??F) TempSrc: Temporal SpO2: 97% Weight: 100.2 kg (221 lb) Height: 162.6 cm (5' 4.02 ) heart RRR and Lungs CTA Results/Data: [...] complication, without long-term current use of insulin ([facility]) ([facility]) 3. Class 2 severe obesity due to excess calories with serious comorbidity and body mass index (BMI)of 36.0 to 36.9 in adult ([facility]) 4. Hyperlipidemia, mixed Assessment/Plan DIAGNOSES/ASSESSMENT Diagnoses and all orders for this visit: Acquired hypothyroidism (E03.9) (Primary) Type 2 diabetes mellitus without complication, without long-term current use of insulin ([facility]) ([facility]) (E11.9) Class 2 severe obesity due to excess calories with serious comorbidity and body mass index (BMI) of36.0 to 36.9 in adult ([facility]) (E66.01, Z68.36) Hyperlipidemia, mixed (E78.2) Other orders - tirzepatide (MOUNJARO) 7.5 mg/0.5 mL pen injector; Inject 7.5 mg under the skin every 7 days - levothyroxine (SYNTHROID) 175 mcg tablet; Take 1 tablet (175 mcg total) by mouth daily No problem-specific Assessment & Plan notes found for this encounter. Diabetes-better controlled especially since been on to his appetite. Last hemoglobin A1c was 6.6. Need to check lipid panel (last checked 2021.) Obesity-taking weekly injections however Need Better control and wt loss. Increase to 7.5 GERD- controlled Hypothyroid-controlled on medication continue last TSH in February was normal PLAN & MEDICATION MANAGEMENT Orders Placed This Encounter tirzepatide (MOUNJARO) 7.5 mg/0.5 mL pen injector levothyroxine (SYNTHROID) 175 mcg tablet Medication Management I have discontinued Kimberly Isabel's levothyroxine and Mounjaro. I am also having her start on tirzepatide and levothyroxine. Additionally, I am having her maintain her multivitamin, cholecalciferol, cetirizine, clobetasoL, and ursodioL. James Gentile MD GE/STRUCTURE INSPECTION TEAM LEADER documented in this encounter Plan of Treatment Not on file documented as of this encounter Visit Diagnoses Diagnosis Acquired hypothyroidism- Primary Unspecified hypothyroidism Type 2 diabetes mellitus without complication, without long-term current use of insulin ([facility]) ([facility]) Class 2 severe obesity due to excess calories with serious comorbidity and body mass index (BMI) of 36.0 to 36.9 in adult ([facility]) Hyperlipidemia, mixed Mixed hyperlipidemia documented in this encounter Discontinued Medications Medication Sig Discontinue Reason Start Date End Da te tirzepatide (Mounjaro) 5 mg/0.5 mL pen injector Inject 5 mg under the skin every 7 days Therapy completed 03/13/2023 04/11/2023 levothyroxine (SYNTHROID) 125 mcg tablet Take 1 tablet (125 mcg total) by mouth daily Therapy completed 05/16/2022 04/11/2023 documented as of this encounter Care Teams Salvage Laborer Relationship Specialty Start Date End Date James Gentile MD [address] [place] [address] PCP - General Internal Medicine 03/01/22 01/17/24 documented as of this encounter
--- OUTSIDE RECORDS SUMMARY | 2024-02-12 03:52 | XMS_ITS | Encounter Summary ---
Author Organization [facility] Address [address] [place] [address] Care Team Providers Care Set Designer Name Role Phone James Gentile MD Primary Care Provider + [phone] Reason for Referral * Diagnostic Imaging (Routine) - Closed Specialty Diagnoses / Procedures Referred By Contac t Referred To Contact Diagnoses Primary biliary cirrhosis (HCC) Elevated alkaline phosphatase level Procedures US RUQ Latrice Freedman NP [address] [place] [id number] Phone: tel: fax: [address] [phone] Referral ID Status Reason Start Date Expiration Date Visits Re quested Visits Authorized [id number] Closed 12/08/2022 01/07/2024 1 1 FOREMAN Reason for Visit * Diagnostic Imaging (Routine) - Closed Specialty Diagnoses / Procedures Referred By Contac t Referred To Contact Diagnoses Primary biliary cirrhosis (HCC) Elevated alkaline phosphatase level Procedures US RUQ Latrice Freedman NP [address] [address] Phone: tel: fax: [address] [phone] Referral ID Status Reason Start Date Expiration Date Visits Re quested Visits Authorized [id number] Closed 12/08/2022 01/07/2024 1 1 Encounter Details Date Type Department Care Team (Latest Contact Info) Description 01/18/2023 8:19 AM CREW FOREMAN - 01/18/2023 11:59 PM CREW FOREMAN Hospital Encounter [place] [id number] [place] [address] Primary biliary cirrhosis (HCC); Elevated alkaline phosphatase level Discharge Disposition: Discharge to home or self care Social History Tobacco Use Types Packs/Day Years Used Date Smoking Tobacco: Never Smokeless Tobacco: Never AUDIT-C Answer Date Recorded Q1: How often do you have a drink containing alcohol? Monthly or less 05/01/2022 Q2: How many drinks containi ng alcohol do you have on a typical day when you are drinking? Patient does not drink 3 Q3: How often do you have si [...] or self care documented in this encounter Miscellaneous Notes * Result Encounter Note - Latrice Freedman NP - 01/18/2023 11:59 PM CREW FOREMAN Reviewed previously with Dr. Carreno. If no ductal abnormalities are done, can stop with imaging.GGT is normal. Alk phos isoenzyme predominantly from liver. US did not show any biliary ductal dilation. It did show hepatic steatosis No further imaging needed. Sent my chart message. Labs due in Mar (HFP, GGT) FOREMAN documented in this encounter Plan of Treatment Not on file documented as of this encounter Procedures Procedure Name Priority Date/Time Associated Diagnosis Comments US RUQ Routine 01/18/2023 8:39 AM CREW FOREMAN Primary biliary cirrhosis (HCC) Elevated alkaline phosphatase level documented in this encounter Results * US RUQ (01/18/2023 8:39 AM CREW FOREMAN) Anatomical Region Laterality Modality Abdomen N/A Ultrasound 01/19/2023 2:19 PM CREW FOREMAN Narrative 01/19/2023 2:23 PM CREW FOREMAN EXAM DESCRIPTION: ?? US RUQ REASON FOR STUDY: elevated alk phos, r/o biliary dilation ?? TECHNIQUE: Ultrasound of the right upper quadrant of the abdomen was performed with grayscale and color Doppler. COMPARISON: None. FINDINGS: Assessment appears to be significantly limited by body habitus and poor acoustic window. ?? PANCREAS: ??Visualized portions of the pancreas are within normal limits. Portions of the pancreatic body and tail are obscured due to bowel gas. LIVER: The liver is increased ??in echogenicity. ??Liver measures ??18.9 ??cm. No focal hepatic lesions are seen. Antegrade direction of flow shown in the main portal vein. GALLBLADDER: ??The senior data modeler reports that there are gallstones along the gallbladder wall. ??No definitive shadowing gallstones are seen. ??There are echogenic foci along the nondependent wall with ring down most likely gallbladder adenomyomatosis or gallbladder polyps measuring up to 0.4 cm. ?? There is no demonstrated pericholecystic fluid. ??There is wall thickening and 0.4 cm. ??Negative sonographic Wells's sign reported. ?? BILIARY: There is no intrahepatic biliary ductal dilatation. The common bile duct measures ??0.6 ??cm in diameter. RIGHT KIDNEY: Right kidney is ??11.1 ??cm in length. There is no hydronephrosis. The echogenicity is ??normal. OTHER: ??No other significant finding. IMPRESSION: Ecmo Specialist reports the presence of gallstones although these are not clearly seen on retrospective review. Mild gallbladder wall thickening with no other secondary features of acute cholecystitis. Echogenic foci along the non dependent gallbladder wall with ring down most likely gallbladder adenomyomatosis or polyps. ??1 year ultrasound follow-up recommended. No biliary ductal dilation. Hepatic steatosis. THIS IS AN ELECTRONICALLY VERIFIED FINAL REPORT 01/19/2023 2:23 PM - Electronically signed by ??Emmett Nicole M.D. CH: D: ??01/19/2023 2:23 PM T: ??01/19/2023 2:23 PM Report ID: [id number] Reading Location: ??[id number] Procedure Note Emmett Nicole Jr., MD - 01/19/2023 EXAM DESCRIPTION: US RUQ REASON FOR STUDY: elevated alk phos, r/o biliary dilation TECHNIQUE: Ultrasound of the right upper quadrant of the abdomen wasperformed with grayscale and color Doppler. COMPARISON: None. FINDINGS: Assessment appears to be significantly limited by body habitusand poor acoustic window. PANCREAS: Visualized portions of the pancreas are within normal limits. Portions of the pancreatic body and tail are obscured due to bowel gas. LIVER: The liver is increased in echogenicity. Liver measures 18.9 cm.No focal hepatic lesions are seen. Antegrade direction of flow shown in themain portal vein. GALLBLADDER: The senior data modeler reports that there are gallstones along the gallbladder wall. No definitive shadowing gallstones are seen. There are echogenic foci along the nondependent wall with ring down most likely gallbladder adenomyomatosis or gallbladder polyps measuring up to 0.4 cm. There is no demonstrated pericholecystic fluid. There is wall thickeningand 0.4 cm. Negative sonographic Wells's sign reported. BILIARY: There is no intrahepatic biliary ductal dilatation. The commonbile duct measures 0.6 cm in diameter. RIGHT KIDNEY: Right kidney is 11.1 cm in length. There is nohydronephrosis. The echogenicity is normal. OTHER: No other significant finding. IMPRESSION: Ecmo Specialist reports the presence of gallstones although these are notclearly seen on retrospective review. Mild gallbladder wall thickening with no other secondary features ofacute cholecystitis. Echogenic foci along the non dependent gallbladder wall with ring downmost likely gallbladder adenomyomatosis or polyps. 1 year ultrasound follow-up recommended. No biliary ductal dilation. Hepatic steatosis. THIS IS AN ELECTRONICALLY VERIFIED FINAL REPORT 01/19/2023 2:23 PM - Electronically signed by Emmett Nicole M.D. CH: CRISTINO Report ID: [id number] Reading Location: [place] [address] Result [facility] Latrice Freedman NP IMG US PROCEDURES Final Result documented in this encounter Visit Diagnoses Diagnosis Primary biliary cirrhosis (HCC) Biliary cirrhosis Elevated alkaline phosphatase level documented in this encounter Care Teams Set Designer Relationship Specialty Start Date End Date James Gentile MD [address] [place] [id number] PCP - General Internal Medicine 03/01/22 01/17/24 documented as of this encounter
--- OUTSIDE RECORDS SUMMARY | 2024-02-12 03:52 | XMS_ITS | Encounter Summary ---
Author Organization [facility] [employer] [facility] Address [address] [place] [address] Care Team Providers Care Textile Chemist Name Role Phone Unavailable Primary Care Provider Unavailabl e Reason for Visit * Reason Onset Date Comments feeling full 02/04/2024 Encounter Details Date Type Department Care Team (Late st Contact Info) Description 02/04/2024 Telephone [facility] - [place] [address] [place] [address] Kamala Boggs MD [address] [place] [address] feeling full Social History Tobacco Use Types Packs/Day Years [...] encounter Miscellaneous Notes * Telephone Encounter - Carol Murguia - 02/04/2024 12:17 PM CST Called patient and informed her of her appointment at [facility] at 1pm with 12:30 arrival. Patient stated understanding. PTION AGENT * Telephone Encounter - Carol Murguia - 02/04/2024 12:17 PM CST ----- Message from Dr. Kamala Boggs sent at 02/04/2024 8:37 AM RECEPTION AGENT ----- Regarding: RE: full feeling I have ordered a Thoracentesis. Please schedule. ----- Message ----- From: Carol Murguia Sent: 02/01/2024 2:46 PM RECEPTION AGENT To: Kamala Boggs MD Subject: full feeling Patient has called complaining of symptoms like she had when she needed a thoracentesis she is feeling full, having trouble with breathing. When talking patient had to stop and take full deep breathsbefore finishing what she was saying. Patient said based off the pet we ordered her welfare adviser recommended she contact our office to get another thoracentesis. Please advise. PTION AGENT documented in this encounter Plan of Treatment Upcoming Encounters Date Type Department Care Team (Late st Contact Info) Description 02/18/2024 10:00 AM RECEPTION AGENT Office Visit [facility] - [place] [address] [place] [address] Kamala Boggs MD [address] [place] [address] documented as of this encounter Visit Diagnoses Not on filedocumented in this encounter
--- OUTSIDE RECORDS SUMMARY | 2024-02-12 03:52 | XMS_ITS | Encounter Summary ---
Author Organization [facility] Healthcare Address [address] [place] [address] Care Team Providers Care Sawmill Hand Name Role Phone James Gentile MD Primary Care Provider + [phone] Encounter Details Date Type Department Care Team (Late st Contact Info) Description 07/10/2023 12:05 PM CDT [facility] Building [address] [address] Acquired hypothyroidism; Type 2 diabetes mellitus without complication, without long-term current use of insulin ([facility]) ([facility]); Class 2 severe obesity due to excess calories with serious comorbidity and body mass index (BMI) of 36.0 to 36.9 in adult ([facility]); Hyperlipidemia, mixed; Essential (primary) hypertension; Hypothyroidism, unspecified [...] Procedure Name Priority Date/Time Associated Diagnosis Comments DIFFERENTIAL AUTO Routine 07/10/2023 12: 32 PM CDT Acquired hypothyroidism Type 2 diabetes mellitus without complication, without long-term current use of insulin ([facility]) ([facility]) Class 2 severe obesity due to excess calories with serious comorbidity and body mass index (BMI) of 36.0 to 36.9 in adult ([facility]) Hyperlipidemia, mixed Essential (primary) hypertension Hypothyroidism, unspecified type Cartilage disease Laboratory examination ordered as part of a complete physical examination Other general symptoms and signs Screening for cardiovascular condition Psoriasis CBC WITH AUTO DIFFERENTIAL Routine 07/10/2023 12:32 PM CDT Acquired hypothyroidism Type 2 diabetes mellitus without complication, without long-term current use of insulin ([facility]) ([facility]) Class 2 severe obesity due to excess calories with serious comorbidity and body mass index (BMI) of 36.0 to 36.9 in adult ([facility]) Hyperlipidemia, mixed Essential (primary) hypertension Hypothyroidism, unspecified type Cartilage disease Laboratory examination ordered as part of a complete physical examination Other general symptoms and signs Screening for cardiovascular condition Psoriasis ALBUMIN CREATININE RATIO, URINE Routine 07/10/2023 12:32 PM CDT VITAMIN D 25 HYDROXY Routine 07/10/2023 12:32 PM CDT Acquired hypothyroidism Type 2 diabetes mellitus without complication, without long-term current use of insulin ([facility]) ([facility]) Class 2 severe obesity due to excess calories with serious comorbidity and body mass index (BMI) of 36.0 to 36.9 in adult ([facility]) Hyperlipidemia, mixed Essential (primary) hypertension Hypothyroidism, unspecified type Cartilage disease Laboratory examination ordered as part of a complete physical examination Other general symptoms and signs Screening for cardiovascular condition Psoriasis VITAMIN B12 Routine 07/10/2023 12:32 PM CDT Acquired hypothyroidism Type 2 diabetes mellitus without complication, without long-term current use of insulin ([facility]) ([facility]) Class 2 severe obesity due to excess calories with serious comorbidity and body mass index (BMI) of 36.0 to 36.9 in adult ([facility]) Hyperlipidemia, mixed Essential (primary) hypertension Hypothyroidism, unspecified type Cartilage disease Laboratory examination ordered as part of a complete physical examination Other general symptoms and signs Screening for cardiovascular condition Psoriasis LIPID PANEL Routine 07/10/2023 12:32 PM CDT Acquired hypothyroidism Type 2 diabetes mellitus without complication, without long-term current use of insulin ([facility]) ([facility]) Class 2 severe obesity due to excess calories with serious comorbidity and body mass index (BMI) of 36.0 to 36.9 in adult ([facility]) Hyperlipidemia, mixed Essential (primary) hypertension Hypothyroidism, unspecified type Cartilage disease Laboratory examination ordered as part of a complete physical examination Other general symptoms and signs Screening for cardiovascular condition Psoriasis documented in this encounter Results * Differential, auto (07/10/2023 12:32 PM CDT) Neutrophil abs 5.5 1.5 - 6.5 K/cumm Comment:Testing performed by : [address] [address] Imm gran abs 0.0 0.0 - 0.1 K/cumm ZENOBIA Comment:Testing performed by : [address] [address] Lymphocyte abs 1.5 0.8 - 3.3 K/cumm ZENOBIA Comment:Testing performed by : [address] [address] Monocyte abs 0.3 0.2 - 0.8 K/cumm ZENOBIA Comment:Testing performed by : [address] [address] Eosinophil abs 0.1 0.0 - 0.5 K/cumm ZENOBIA Comment:Testing performed by : [address] [address] Basophil abs 0.0 0.0 - 0.1 K/cumm ZENOBIA Comment:Testing performed by : [address] [address] Neutrophil pct 73.3 % [facility] Comment: Interpretive Data Percent cell count reference ranges are not reported, since discordance with absolute values may lead to misinterpretation of CBC data. Current Interpretive Data was last revised on 2017. Testing performed by: [address] [address] Imm gran pct 0.4 % [facility] Comment: Interpretive Data Percent cell count reference ranges are not reported, since discordance with absolute values may lead to misinterpretation of CBC data. Current Interpretive Data was last revised on 2017. Testing performed by: [address] [address] Lymphocyte pct 19.6 % [facility] Comment: Interpretive Data Percent cell count reference ranges are not reported, since discordance with absolute values may lead to misinterpretation of CBC data. Current Interpretive Data was last revised on 2017. Testing performed by: [address] [address] Monocyte pct 4.3 % [facility] Comment: Interpretive Data Percent cell count reference ranges are not reported, since discordance with absolute values may lead to misinterpretation of CBC data. Current Interpretive Data was last revised on 2017. Testing performed by: [address] [address] Eosinophil pct 1.9 % [facility] Comment: Interpretive Data Percent cell count reference ranges are not reported, since discordance with absolute values may lead to misinterpretation of CBC data. Current Interpretive Data was last revised on 2017. Testing performed by: [address] [address] Basophil pct 0.5 % [facility] Comment: Interpretive Data Percent cell count reference ranges are not reported, since discordance with absolute values may lead to misinterpretation of CBC data. Current Interpretive Data was last revised on 2017. Testing performed by: [address] [address] Blood 07/10/2023 12:3 2 PM CDT 07/10/2023 1:43 PM CDT James Gentile MD LAB BLOOD ORDERABLES Final R esult Performing Organization Address [facility] Co de Phone Number ZENOBIA [facility] [place] [address] * (ABNORMAL) Albumin Creatinine Ratio, Urine (07/10/2023 12:32 PM CDT) Albumin Ur <12.0 mg/L Comment: Interpretive Data No reference range established. Current interpretive data was last revised 2018. Testing performed by: [address] [address] Creatinine Ur 27.6 mg/dL ZENOBIA Comment: Interpretive Data No reference range established. Current interpretive data was last revised 2018. Testing performed by: [address] [address] Albumin Creatinine Ratio, Ur <43(H) 1 - 29 mg/g ZENOBIA Comment:Testing performed by : [address] [address] Urine 07/10/2023 12:3 2 PM CDT 07/10/2023 1:41 PM CDT James Gentile MD LAB URINE ORDERABLES Final R [facility] Performing Organization Address [facility] Co de Phone Number ZENOBIA [facility] [place] [address] * (ABNORMAL) Lipid panel (07/10/2023 12:32 PM [...] last revised on 2017. Testing performed by: [facility], [address] [place] [address]., [address] Triglycerides 123 <=149 mg/dL ZENOBIA Comment: Interpretive [...] last revised on 2017. Testing performed by: [address] [address] HDL 50 >=40 mg/dL ZENOBIA Comment: Interpretive [...] last revised on 2017. Testing performed by: [address] [address] LDL, calculated 198(H) <=129 mg/dL ZENOBIA Comment: [...] last revised on 2017. Testing performed by: [address] [address] Non-HDL Cholesterol 223 mg/dL ZENOBIA Comment: Interpretive [...] last revised on 2017. Testing performed by: [address] [address] Chol/HDL ratio 5 ZENOBIA Comment:Testing performed by : [address] [address] Blood 07/10/2023 12:3 2 PM CDT 07/10/2023 1:43 PM CDT us James Gentile MD LAB BLOOD ORDERABLES Final R esult [facility] [facility] Department [place] [address] * CBC with auto differential (07/10/2023 12:32 PM CDT) WBC 7.5 3.8 - 9.9 K/cumm Comment:Testing performed by : [address] [address] Hgb 13.1 11.9 - 15.5 g/dL ZENOBIA Comment:Testing performed by : [address] [address] Hct 38.3 35.6 - 45.5 % ZENOBIA Comment:Testing performed by : [address] [address] Plt 302 150 - 400 K/cumm ZENOBIA Comment:Testing performed by : [address] [address] MPV 11.7 9.1 - 12.3 fL ZENOBIA Comment:Testing performed by : [address] [address] RBC 4.36 3.90 - 5.20 M/cumm ZENOBIA Comment:Testing performed by : [address] [address] MCV 87.8 81.3 - 96.4 fL ZENOBIA Comment:Testing performed by : [address] [address] MCH 30.0 27.1 - 33.3 pg ZENOBIA SALINAS Comment:Testing performed by : [address] [address] MCHC 34.2 32.3 - 35.7 g/dL ZENOBIA Comment:Testing performed by : [address], [address] RDW CV 12.4 11.1 - 14.9 % ZENOBIA Comment:Testing performed by : [address] [address] RDW SD 39.3 35.7 - 48.1 fL ZENOBIA Comment:Testing performed by : [address] [address] NRBC abs 0.00 0.00 - 0.01 K/cumm ZENOBIA Comment:Testing performed by : [address] [address] Blood 07/10/2023 12:3 2 PM CDT 07/10/2023 1:43 PM CDT us James Gentile MD LAB BLOOD ORDERABLES Final R esult Performing Organization Address City/[facility]/ZIP Co de Phone Number ZENOBIA [address] [place] [address] * Vitamin B12 (07/10/2023 12:32 PM CDT) Pathologist [facility] Vitamin B12 371 230 - 1,250 pg/mL Comment:Testing performed by : [address], [address] Blood 07/10/2023 12:3 2 PM CDT 07/10/2023 1:43 PM CDT us James Gentile MD LAB BLOOD ORDERABLES Final R esult [address] [place] [address] * Vitamin D 25 hydroxy (07/10/2023 12:32 PM CDT) Vitamin D 25-OH 76.0 30.0 - 80.0 ng/mL Blood 07/10/2023 12:3 2 PM CDT 07/10/2023 6:35 PM CDT us James Gentile MD LAB BLOOD ORDERABLES Final R esult ZENOBIA [address] [facility] Department [place] [address] documented in this encounter Visit Diagnoses Diagnosis Acquired hypothyroidism Unspecified hypothyroidism Type 2 diabetes mellitus without complication, without long-term current use of insulin ([facility]) ([facility]) Class 2 severe obesity due to excess calories with serious comorbidity and body mass index (BMI) of 36.0 to 36.9 in adult ([facility]) Hyperlipidemia, mixed Mixed hyperlipidemia Essential (primary) hypertension Unspecified essential hypertension Hypothyroidism, unspecified type Cartilage disease Laboratory examination ordered as part of a complete physical examination Other general symptoms and signs Screening for cardiovascular condition Screening for other and unspecified cardiovascular conditions Psoriasis Other psoriasis documented in this encounter Care Teams Sawmill Hand Relationship Specialty Start Date End Date James Gentile MD [address] [place] [address] PCP - General Internal Medicine 03/01/22 01/17/24 documented as of this encounter
--- OUTSIDE RECORDS SUMMARY | 2024-02-12 03:52 | XMS_ITS | Encounter Summary ---
Author Organization [facility] Healthcare Address [address] [place] [address] Care Team Providers Care Division Superintendent Name Role Phone James Gentile MD Primary Care Provider + [phone] Encounter Details Date Type Department Care Team (Late st Contact Info) Description 03/13/2023 3:25 PM JOB COST ESTIMATOR Lab [facility] Building [address] [address] Elevated alkaline phosphatase level; Primary biliary cirrhosis (HCC) Social History Tobacco Use Types Packs/Day Years [...] Encounter Note - Latrice Freedman NP - 03/15/2023 11:49 AM JOB COST ESTIMATOR Labs reviewed. Alk phos remains elevated, likely from hepatic steatosis. No changes. Sent my chart message to repeat HFP in July. COST ESTIMATOR documented in this encounter Plan of Treatment Not on file documented as of this encounter Procedures Procedure Name Priority Date/Time Associated Diagnosis Comments GAMMA GT Routine 03/13/2023 3:17 PM JOB COST ESTIMATOR Elevated alkaline phosphatase level Primary biliary cirrhosis (HCC) HEPATIC FUNCTION PANEL Routine 03/13/2023 3:17 PM JOB COST ESTIMATOR Elevated alkaline phosphatase level Primary biliary cirrhosis (HCC) documented in this encounter Results * Gamma GT (03/13/2023 3:17 PM JOB COST ESTIMATOR) GGT 19 5 - 35 Units/L ZENOBIA SALINAS Blood 03/13/2023 3:17 PM JOB COST ESTIMATOR 03/13/2023 6:20 PM JOB COST ESTIMATOR Narrative ZENOBIA - 03/13/2023 6:45 PM JOB COST ESTIMATOR MARTIN, Please take these orders to any lab to be completed in March . ?? If you do not use a [place] lab, please call [phone] when you complete the lab with the name of the lab so we can obtain results. Please fax results to [phone] call [phone] with any questions. Latrice Freedman NP LAB BLOOD ORDERABLES [facility] Result ZENOBIA [address] [facility] [place] [address] * (ABNORMAL) Hepatic function panel (03/13/2023 3:17 PM JOB COST ESTIMATOR) Bilirubin, total 0.5 0.1 - 1.2 mg/dL ZENOBIA SALINAS Comment:Testing performed by : [facility], [address] [place] [address]., [address] Bilirubin, direct <0.2 0.1 - 0.3 mg/dL ZENOBIA Comment:Testing performed by : [facility], [address] [place] [address]., [address] Protein, pl 7.1 6.5 - 8.5 g/dL ZENOBIA Comment:Testing performed by : [facility], [address] [place] [address]., [address] Albumin 4.2 3.5 - 5.0 g/dL ZENOBIA Comment:Testing performed by : [facility], [address] [place] [address]., [address] Alk phos 162(H) 40 - 130 Units/L ZENOBIA Comment:Testing performed by : [address] [address] ALT 24 7 - 45 Units/L ZENOBIA Comment:Testing performed by : [facility], [address] [place] [address]., [address] AST 27 10 - 45 Units/L ZENOBIA Comment:Testing performed by : [address] [address] Blood 03/13/2023 3:17 PM JOB COST ESTIMATOR 03/13/2023 5:01 PM JOB COST ESTIMATOR Kathy FREGOSO - 03/13/2023 5:47 PM JOB COST ESTIMATOR MARTIN, Please take these orders to any lab to be completed in March . ?? If you do not use a [place] lab, please call [phone] when you complete the lab with the name of the lab so we can obtain results. Please fax results to [phone] call [phone] with any questions. Latrice Freedman BUYER GRAIN LAB BLOOD ORDERABLES Fin al Result [facility] [address] [facility] Department [place] [address] documented in this encounter Visit Diagnoses Diagnosis Elevated alkaline phosphatase level Primary biliary cirrhosis (HCC) Biliary cirrhosis documented in this encounter Care Teams Division Superintendent Relationship Specialty Start Date End Date James Gentile MD [address] [place] [address] PCP - General Internal Medicine 03/01/22 01/17/24 documented as of this encounter
--- OUTSIDE RECORDS SUMMARY | 2024-02-12 03:52 | XMS_ITS | Encounter Summary ---
Author Organization [facility] Healthcare Address [address] [place] [address] Care Team Providers Care Valve And Regulator Repairer Name Role Phone James Gentile MD Primary Care Provider + [phone] Reason for Referral * Diagnostic Imaging (Routine) - Closed Specialty Diagnoses / Procedures Referred By Contac t Referred To Contact Diagnoses Primary biliary cirrhosis (HCC) Procedures Dexa Axial Skeleton Bone Density 1 or 2 Site Latrice Freedman NP [address] [address] Phone: tel: fax: [address] [phone] Referral ID Status Reason Start Date Expiration Date Visits Re quested Visits Authorized [id number] Closed 11/30/2022 12/30/2023 1 1 RUMENT REPAIR SPECIALIST Reason for Visit * Diagnostic Imaging (Routine) - Closed Specialty Diagnoses / Procedures Referred By Contac t Referred To Contact Diagnoses Primary biliary cirrhosis (HCC) Procedures Dexa Axial Skeleton Bone Density 1 or 2 Site Latrice Freedman NP [address] [address] Phone: tel: fax: [address] [phone] Referral ID Status Reason Start Date Expiration Date Visits Re quested Visits Authorized [id number] Closed 11/30/2022 12/30/2023 1 1 Encounter Details Date Type Department Care Team (Latest Contact Info) Description 01/18/2023 7:41 AM INSTRUMENT REPAIR SPECIALIST - 01/18/2023 11:59 PM INSTRUMENT REPAIR SPECIALIST Hospital Encounter [facility] Medical Office Bldg 1 [facility] [address] Primary biliary cirrhosis (HCC) Discharge Disposition: Discharge to home or self [...] Note - Latrice Freedman NP - 01/18/2023 11:28 AM INSTRUMENT REPAIR SPECIALIST Normal DEXA> Sent my chart message. RUMENT REPAIR SPECIALIST documented in this encounter Plan of Treatment Not on file documented as of this encounter Procedures Procedure Name Priority Date/Time Associated Diagnosis Comments DEXA AXIAL SKELETON BONE DENSITY 1 OR MORE SITES Schedule Routine, Read Routine (OP Routine) 01/18/2023 7:56 AM INSTRUMENT REPAIR SPECIALIST Primary biliary cirrhosis (HCC) documented in this encounter Results * Dexa Axial Skeleton Bone Density 1 or 2 Site (01/18/2023 7:56 AM INSTRUMENT REPAIR SPECIALIST) Anatomical Region Laterality Modality Body N/A Mammography 01/18/2023 9:48 AM INSTRUMENT REPAIR SPECIALIST Narrative 01/18/2023 9:49 AM INSTRUMENT REPAIR SPECIALIST EXAM DESCRIPTION: DEXA AXIAL SKELETON BONE DENSITY 1 OR MORE SITES REASON FOR STUDY: 62 y/o ?? year old ??F ??with given history of: ??likely PBC. ?? Postmenopausal status. ??Patient has taken/is taking vitamin-D and calcium ? Bevel Operator/Model: MooBella A (S/N [id number]) CLINICAL INFORMATION: Current height: ??63 ??inches ? Maximum height: ??64 ??inches ? Weight: ??225 ??pounds Risk factors: ??None COMPARISON: None available FINDINGS: AP LUMBAR SPINE L1-L4: Total BMD is 1.020 g/cm2 T-score is -0.2 LEFT HIP: Total BMD is 1.049 g/cm2 T-score is 0.9 Femoral neck BMD is 0.777 g/cm2 T-score is -0.7 ?? FRAX: FRAX not reported due to T-scores of hip, femoral neck and/or spine being at or above -1.0 (Normal). IMPRESSION: Normal bone mass. REFERENCE: Bone mineral density: ? Normal (T-score above or = -1.0) ? Low bone mass ??(T-score between -1.0 and -2.5) replaces the previously used term osteopenia ? Osteoporosis (T-score = or below -2.5) Medical evaluation for secondary causes of low bone mineral density may be appropriate. FRAX is a World Health Organization validated fracture risk assessment tool that calculates a person's 10 year probability of a major osteoporosis related fracture and hip fracture. ??According to the National Osteoporosis Foundation guidelines, postmenopausal women and men age 50 or older with low bone mass and a 10 year probability of a major osteoporosis related fracture = or greater than 20% or a 10 year probability of a hip fracture = or greater than 3% should be considered for treatment. For further information, including treatment recommendations, please refer to the 2019 ISCD Official Positions (http://www.iscd.org) and the NOF's Clinician's Guide to Prevention and Treatment of Osteoporosis (http://www.nof.org/professionals/clinical-guidelines) THIS IS AN ELECTRONICALLY VERIFIED FINAL REPORT 01/18/2023 9:49 AM - Electronically signed by ??Bonny Lang M.D. TW: TW D: ??01/18/2023 9:49 AM T: ??01/18/2023 9:49 AM Report ID: [id number] Reading Location: ??[id number] Procedure Note Bonny Lang MD - 01/18/2023 EXAM DESCRIPTION: DEXA AXIAL SKELETON BONE DENSITY 1 OR MORE SITES REASON FOR STUDY: 62 y/o year old F with given history of: likelyPBC. Postmenopausal status. Patient has taken/is taking vitamin-D and calcium Bevel Operator/Model: Hologic Horizon A (S/N [id number]) CLINICAL INFORMATION: Current height: 63 inches Maximum height: 64 inches Weight: 225 pounds Risk factors: None COMPARISON: None available FINDINGS: AP LUMBAR SPINE L1-L4: Total BMD is 1.020 g/cm2 T-score is -0.2 LEFT HIP: Total BMD is 1.049 g/cm2 T-score is 0.9 Femoral neck BMD is 0.777 g/cm2 T-score is -0.7 FRAX: FRAX not reported due to T-scores of hip, femoral neck and/or spine beingat or above -1.0 (Normal). IMPRESSION: Normal bone mass. REFERENCE: Bone mineral density: Normal (T-score above or = -1.0) Low bone mass (T-score between -1.0 and -2.5) replaces thepreviously used term osteopenia Osteoporosis (T-score = or below -2.5) Medical evaluation for secondary causes of low bone mineral density may be appropriate. FRAX is a World Health Organization validated fracture risk assessmenttool that calculates a person's 10 year probability of a major osteoporosisrelated fracture and hip fracture. According to the National OsteoporosisFoundation guidelines, postmenopausal women and men age 50 or older with low bonemass and a 10 year probability of a major osteoporosis related fracture = or greater than 20% or a 10 year probability of a hip fracture = or greaterthan 3% should be considered for treatment. For further information, including treatment recommendations, please referto the 2019 ISCD Official Positions (http://www.iscd.org) and the NOF's Clinician's Guide to Prevention and Treatment of Osteoporosis (http://www.nof.org/professionals/clinical-guidelines) THIS IS AN ELECTRONICALLY VERIFIED FINAL REPORT 01/18/2023 9:49 AM - Electronically signed by Bonny Lang M.D. TW: MARCUS Report ID: [id number] Reading Location: [place] [address] Latrice Freedman NP IMG DXA PROCEDURES Final Result documented in this encounter Visit Diagnoses Diagnosis Primary biliary cirrhosis (HCC) Biliary cirrhosis documented in this encounter Care Teams Valve And Regulator Repairer Relationship Specialty Start Date End Date James Gentile MD [address] [place] [address] PCP - General Internal Medicine 03/01/22 01/17/24 documented as of this encounter
--- OUTSIDE RECORDS SUMMARY | 2024-02-12 03:52 | XMS_ITS | Encounter Summary ---
Author Organization [facility] Address [address] [place] [address] Phone Care Team Providers Care Horticultural Agent Name Role Phone James Gentile MD Primary Care Provider + [phone] Encounter Details Date Type Department Care Team (Late st Contact Info) Description 06/25/2023 Telephone [facility] Gastroenterology [address] [facility] 12th [place] [address] [place] [address] Neelam Faust CMA Social History Tobacco Use Types Packs/Day Years [...] encounter Miscellaneous Notes * Telephone Encounter - Neelam Faust CMA - 06/25/2023 9:17 AM CDT 06/24 lab entered to have done in July ----- Message from Beba Briceño RN sent at 03/15/2023 12:23 PM TRAILERS AND MOTOR HOMES SALESPERSON ----- Regarding: HFP in July 2023 HFP in July 2023 Dx: hepatic steatosis documented in this encounter Plan of Treatment Not on file documented as of this encounter Results * (ABNORMAL) Hepatic function panel (07/10/2023 12:33 PM CDT) Bilirubin, total 0.6 0.1 - 1.2 mg/dL Comment:Testing performed by : [address] [address] Bilirubin, direct <0.2 0.1 - 0.3 mg/dL ZENOBIA Comment:Testing performed by : [address] [address] Protein, pl 6.9 6.5 - 8.5 g/dL ZENOBIA Comment:Testing performed by : [address] [address] Albumin 4.0 3.5 - 5.0 g/dL ZENOBIA Comment:Testing performed by : [address] [address] Alk phos 166(H) 40 - 130 Units/L ZENOBIA Comment:Testing performed by : [address] [address] ALT 17 7 - 45 Units/L ZENOBIA Comment:Testing performed by : [address] [address] AST 22 10 - 45 Units/L ZENOBIA Comment:Testing performed by : [address] [address] Blood 07/10/2023 12:3 3 PM CDT 07/10/2023 1:43 PM CDT Latrice Freedman TRANSITION SOCIAL WORKER LAB BLOOD ORDERABLES Fin al Result Performing Organization Address City/State/[facility] Co de Phone Number ZENOBIA [address] [facility] Department [place] [address] documented in this encounter Visit Diagnoses Diagnosis Hepatic vein stenosis- Primary Compression of vein documented in this encounter Care Teams Horticultural Agent Relationship Specialty Start Date End Date James Gentile MD [address] [place] [address] PCP - General Internal Medicine 03/01/22 01/17/24 documented as of this encounter
--- OUTSIDE RECORDS SUMMARY | 2024-02-12 03:52 | XMS_ITS | Encounter Summary ---
Author Organization [facility] Address [address] [place] [address] Care Team Providers Care Salon Shampoo Assistant Name Role Phone Unavailable Primary Care Provider Unavailabl e Encounter Details Date Type Department Care Team (Late st Contact Info) Description 01/29/2024 External Device Data STL ABSTRACTION Provider, Abstract NO ADDRESS ON FILE Social History Tobacco Use Types Packs/Day Years [...] st Contact Info) Description 02/18/2024 10:00 AM AIRPORT SECURITY SCREENER Office Visit [facility] Oncology and Hematology - [place] [address] [place] [address] Kamala Boggs MD [address] [place] [address] documented as of this encounter Visit Diagnoses Not on filedocumented in this encounter
--- OUTSIDE RECORDS SUMMARY | 2024-02-12 03:52 | XMS_ITS | Encounter Summary ---
Author Organization [facility] Address [address] [place] [address] Phone Care Team Providers Care Brake Lining Curer Name Role Phone James Gentile MD Primary Care Provider + [phone] Encounter Details Date Type Department Care Team (Late st Contact Info) Description 01/22/2023 Telephone [facility] Gastroenterology [address] [place] [address] 12th [place] [address] [place] [address] Beba Briceño, JUNIE Social History [...] Telephone Encounter - Beba Briceño RN - 01/22/2023 11:12 AM MEDIA COORDINATOR Latrice Freedman NP sent results to the patient via a [employer] Message. Delayed task to the pool toschedule the HFP and GGT in March 2023. ----- Message from Latrice Freedman NP sent at 01/22/2023 10:55 AM MEDIA COORDINATOR ----- Reviewed previously with Dr. Carreno. If no ductal abnormalities are done, can stop with imaging.GGT is normal. Alk phos isoenzyme predominantly from liver. US did not show any biliary ductal dilation. It did show hepatic steatosis No further imaging needed. Sent my chart message. Labs due in Mar (HFP, GGT) A COORDINATOR A COORDINATOR documented in this encounter Plan of Treatment Not on file documented as of this encounter Visit Diagnoses Not on filedocumented in this encounter Care Teams Brake Lining Curer Relationship Specialty Start Date End Date James Gentile MD [address] [place] [address] PCP - General Internal Medicine 03/01/22 01/17/24 documented as of this encounter
--- OUTSIDE RECORDS SUMMARY | 2024-02-12 03:52 | XMS_ITS | Clinical Summary ---
Author Organization [facility] Ellen manuel Aggarwal Address [address] [place] [address] Care Team Providers Care Chinese Language Professor Name Role Phone Unavailable Primary Care Provider Unavailabl e Allergies No known active allergies Medications Medication Sig Dispensed Refills Start Date End Date Status ursodioL (GENOVEVA) 500 mg tablet Take 250 mg by mouth 2 times daily. Active rosuvastatin (CRESTOR) 5 mg tablet Take 5 mg by mouth daily. Active clobetasoL (TEMOVATE) 0.05 % Ointment Apply to affected area see administration instructions. 07/30/2023 Active cetirizine (ZyrTEC) 10 mg tablet Take 10 mg by mouth daily. Active multivitamin (DAILY-RADHA) tablet Take 1 Tablet by mouth daily. Active CALCIUM CARBONATE-VITAMI N D3 ORAL Take by mouth. Active Mounjaro 10 mg/0.5 mL Pen Injector Inject 10 mg by subcutaneous injection every 7 days. 01/16/2024 Discontinue d(Duplicate Therapy) Active Problems No known active problems Encounters Date Type Department Care Team Description 02/07/2024 Orders Only [facility] Oncology and Hematology - [place] [address] [place] [address] Adan Arrington MD 02/07/2024 Telephone [facility] Oncology and Hematology - [place] [address] [place] [address] Adan Arrington MD Lab Results 02/04/2024 Telephone [facility] Oncology and Hematology - [place] [place] [address] Kamala Boggs MD feeling full 02/04/2024 Orders Only [facility] Oncology and Hematology - [place] [place] [address] Kamala Boggs MD Malignant pleural effusion (Primary Dx) 02/01/2024 Orders Only [facility] Oncology and Hematology [facility] [address] [place] [address] Adan Arrington MD 01/29/2024 External Device Data STL ABSTRACTION Provider, Abstract 01/24/2024 3:00 PM CYTOPATHOLOGIST Office Visit [facility] Oncology and Hematology [facility] [address] [place] [address] Adan Arrington MD Malignant pleural effusion (Primary Dx) from Last 3 Months Family History Medical History Relation Name Comments No Known Problems Brother No Known Problems Child 1 No Known Problems Child 2 No Known Problems Father Colon Cancer Mother No Known Problems Sister Relation Name Status Comments Brother Alive Child 1 Alive Child 2 Alive Father Mother Sister Alive Social History Tobacco Use Types Packs/Day Years [...] Comments Blood Pressure 112/65 01/24/2024 3:20 PM CYTOPATHOLOGIST Pulse 76 01/24/2024 3:20 PM CYTOPATHOLOGIST Temperature 36.6 ??C (97.8 ??F) 01/24/2024 3:20 PM CS T Respiratory Rate 16 01/24/2024 3:20 PM CYTOPATHOLOGIST Oxygen Saturation 96% 01/24/2024 3:20 PM CYTOPATHOLOGIST Inhaled Oxygen Concentration - - Weight 91.1 kg (200 lb 12.8 oz) 01/24/2024 3:20 PM CYTOPATHOLOGIST Height 162.6 cm (5' 4 ) 01/24/2024 3:20 PM CYTOPATHOLOGIST Body Mass Index 34.47 01/24/2024 3:20 PM CYTOPATHOLOGIST Plan of Treatment Upcoming Encounters Date Type Department Care Team (Late st Contact Info) Description 02/18/2024 10:00 AM CYTOPATHOLOGIST Office Visit [facility] Oncology and Hematology [facility] [address] [place] [address] Kamala Boggs MD [address] [place] [address] Health Maintenance Due Date Last Done Comments DIABETES ANNUAL RETINAL EXAM 1978 DIABETES MICROALBUMIN ANNUAL SCREEN 1978 LDL CHOLESTEROL ANNUAL 1978 CERVICAL CANCER SCREENING 1990 FIT-DNA Q 3 years 2005 FIT/FOBT Q 1 year 2005 Flex Sig/CT Colonography Q 5 years 2005 ZOSTER VACCINE (1 of 2) 2010 RSV VACCINE (60+ or ) (1 - Risk 60-74 years 1-dose series) 2020 PNEUMOCOCCAL VACCINE 0-64 YE ARS (2 of 2 - PPSV23 or PCV20) 11/03/2021 09/08/2021 COLORECTAL SCREENING 07/29/2023 07/28/2013 Colorectal Cancer Screening 07/29/2023 DIABETES HBA1C Q 6 MONTHS 09/11/2023 03/13/2023, INFLUENZA VACCINE (#1) 2023 , 02/17/2019, 01/22/2018, Additional history exists DIABETES ANNUAL FOOT EXAM 12/14/2023 12/13/2022 BREAST CANCER SCREENING 02/01/2024 01/31/2023, 12/06 DTAP/TDAP/TD VACCINES (2 - T d or Tdap) 01/23/2028 01/22/2018 Procedures Procedure Name Priority Date/Time Associated Diagnosis Comments US ASPIRATION PLEURA RIGHT Routine 02/05/2024 1:56 PM CYTOPATHOLOGIST XR CHEST PA AND LATERAL 2 VW Routine 02/05/2024 1:54 PM CYTOPATHOLOGIST PET BONE IMG W CT SKL BSE MID THG Routine 01/31/2024 10:25 AM CYTOPATHOLOGIST GLUCOSE LEVEL Routine 01/31/2024 8:51 AM CYTOPATHOLOGIST from Last 3 Months Results * US ASPIRATION PLEURA RIGHT (02/05/2024 1:56 PM CYTOPATHOLOGIST) Anatomical Region Laterality Modality Chest Other Adan Arrington MD US ORDERABLES * XR CHEST PA AND LATERAL 2 VW (02/05/2024 1:54 PM CYTOPATHOLOGIST) Anatomical Region Laterality Modality Chest Other Adan Arrington MD DIAGNOSTIC IMAGING O RDERABLES * PET BONE IMG W CT SKB MD (01/31/2024 10:25 AM CYTOPATHOLOGIST) Anatomical Region Laterality Modality Other Adan Arrington MD PE ORDERABLES * GLUCOSE LEVEL (01/31/2024 8:51 AM CYTOPATHOLOGIST) Blood Adan Arrington MD CHEMISTRY ORDERABLES from Last 3 Months
--- OUTSIDE RECORDS SUMMARY | 2024-02-12 03:52 | XMS_ITS | Encounter Summary ---
Author Organization [facility] Healthcare Address [address] [place] [address] Care Team Providers Care Performance Tester Name Role Phone James Gentile MD Primary Care Provider + [phone] Reason for Visit * Reason Comments Cough Dry cough and troubl e taking deep breathes SYMPTOMS x 10 days, SOB with movement. Encounter Details Date Type Department Care Team (Late st Contact Info) Description 01/02/2024 2:15 PM ORE BRIDGE OPERATOR Office Visit [facility] Medical Group Con[facility] at [address] [phone] Kimberly Mar PA [address] [place] [address] [address] [place] [address] Pleural effusion (Primary Dx); Shortness of breath Social History Tobacco Use [...] Comments Blood Pressure 162/80 01/02/2024 2:10 PM ORE BRIDGE OPERATOR Pulse 80 01/02/2024 2:10 PM ORE BRIDGE OPERATOR Temperature 37.7 ??C (99.8 ??F) 01/02/2024 2:10 PM CS T Respiratory Rate 24 01/02/2024 2:10 PM ORE BRIDGE OPERATOR Oxygen Saturation 92% 01/02/2024 2:10 PM ORE BRIDGE OPERATOR Inhaled Oxygen Concentration - - Weight 92.5 kg (204 lb) 01/02/2024 2:10 PM ORE BRIDGE OPERATOR Height 162.6 cm (5' 4 ) 01/02/2024 2:10 PM ORE BRIDGE OPERATOR Body Mass Index 35.02 01/02/2024 2:10 PM ORE BRIDGE OPERATOR documented in this encounter Progress Notes * Kimberly Mar PA - 01/02/2024 2:15 PM CST Images from the original note were not included. Subjective/Objective Patient ID: Kimberly Isabel is a 63 y.o. female. Chief Complaint Cough (Dry cough and trouble taking deep breathes SYMPTOMS x 10 days, SOB with movement. ) Pt presents w/ sob x 10 days. Also reports cough, tactile fever at night, chills. No nasal congestion, sore throat. Sob is worse w/ exertion and worsened in the past 1-2 days. No chest pain but does admit to aching in her R shoulder. Review of Systems All systems reviewed and are negative or non contributory for this patient's presentation today other than as stated in the HPI . Physical Exam Constitutional: General: She is not in acute distress. HENT: Head: Normocephalic and atraumatic. Mouth/Throat: Pharynx: Oropharynx is clear. Eyes: Pupils: Pupils are equal, round, and reactive to light. Cardiovascular: Rate and Rhythm: Normal rate. Pulmonary: Effort: Respiratory distress (speaking in broken sentences, tachypneic) present. Breath sounds: Wheezing (faint wheezing throughout L lung space, no breath sounds auscultated on the R lower side) present. Musculoskeletal: General: Normal range of motion. Cervical back: Normal range of motion. Skin: General: Skin is warm and dry. Neurological: General: No focal deficit present. Mental Status: She is alert and oriented to person, place, and time. Psychiatric: Mood and Affect: Mood normal. Behavior: Behavior normal. Vitals: 01/02/24 1410 BP: 162/80 Pulse: 80 Resp: 24 Temp: 37.7 ??C (99.8 ??F) SpO2: 92% Weight: 92.5 kg (204 lb) Height: 162.6 cm (5' 4 ) XR Chest Pa Lateral 2 Views EXAM DESCRIPTION: XR CHEST PA LATERAL 2 VIEWS REASON FOR STUDY: Cough shortness of breath for 3-4 days. TECHNIQUE: PA and lateral radiographic views of the chest COMPARISON: None FINDINGS: LUNGS/PLEURAE: Significant opacification of the right hemithorax likely secondary to a large pleural effusion and associated passive atelectasis. No large left pleural effusion. There is no pneumothorax. HEART/MEDIASTINUM: Heart size is partially obscured HARDWARE/LINES/TUBES: None. BONES: Mild thoracic spondylosis. IMPRESSION: Significant opacification of the right hemithorax likely secondary to a large pleural effusion and associated passive atelectasis. Correlation with CT is recommended. THIS IS AN ELECTRONICALLY VERIFIED FINAL REPORT 01/02/2024 2:46 PM - Electronically signed by Jesu Montiel M.D. T: Report ID: [id number] Reading Location: [place] [address] Assessment/Plan -pt presents w/ worsening sob x 10 days -labored breathing and mild respiratory distress upon arrival w/ oxygen of 91- 92% on RA, speaking in broken sentences -put on 2L oxygen with sats coming up to 95% -also did duoneb w/ no relief -did stat CXR which shows large pleural effusion on the R side -EMS was called for transport to ED for further management Diagnoses and all orders for this visit: Pleural effusion (Primary) - XR Chest Pa Lateral 2 Views; Future Shortness of breath No results found for this or any previous visit (from the past 4 hours). Disposition ER via EMS [facility] 01/02/24 3:04 PM Cosigned by Ming Frias MD at 01/02/2024 10:32 PM ORE BRIDGE OPERATOR BRIDGE OPERATOR BRIDGE OPERATOR documented in this encounter Plan of Treatment Not on file documented as of this encounter Results * XR Chest Pa Lateral 2 Views (01/02/2024 2:31 PM ORE BRIDGE OPERATOR) Anatomical Region Laterality Modality Body, Chest N/A Digital Radiogra phy 01/02/2024 2:43 PM ORE BRIDGE OPERATOR Narrative 01/02/2024 2:46 PM ORE BRIDGE OPERATOR EXAM DESCRIPTION: ?? XR CHEST PA [...] D: ??01/02/2024 2:46 PM T: Report ID: [id number] Reading Location: ??[id number] Procedure Note Jesu Montiel MD - 01/02/2024 [...] - Electronically signed by Jesu Montiel M.D. LB T: Report ID: [id number] Reading Location: [id number] Kimberly SANTAMARIA IMG XR PROCEDURES Final Result documented in this encounter Visit Diagnoses Diagnosis Pleural effusion- Primary Unspecified pleural effusion Shortness of breath Shortness of breath documented in this encounter Care Teams Performance Tester Relationship Specialty Start Date End Date James Gentile MD [address] [place] [id number] PCP - General Internal Medicine 03/01/22 01/17/24 documented as of this encounter
--- OUTSIDE RECORDS SUMMARY | 2024-02-12 03:53 | XMS_ITS | Encounter Summary ---
Author Organization [facility] Healthcare Address [address] [place] [address] Care Team Providers Care Saw Boss Name Role Phone James Gentile MD Primary Care Provider + [phone] Reason for Visit * Reason Onset Date Comments Medical Question/Miscellaneous 12/22/2022 Encounter Details Date Type Department Care Team ([facility] st Contact Info) Description 12/22/2022 Telephone [facility] Medical Group Primary Care [address] [place] [phone] James Gentile MD [address] [address] Medical Question/Miscellaneous Social History Tobacco Use Types Packs/Day Years [...] Miscellaneous Notes * Telephone Encounter - Carol Brennan MA - 12/26/2022 5:11 PM CST Called and clarified with pharmacy. SIONS REPAIR TECHNICIAN * Telephone Encounter - James Gentile MD - 12/26/2022 4:14 PM CST Was going to be 2.5 for 4 weeks then 5.0. but at this point to lessen confusion ok to just say 2.5 on script SIONS REPAIR TECHNICIAN * Telephone Encounter - Cornelius Marrero MA - 12/25/2022 1:30 PM EMISSIONS REPAIR TECHNICIAN Call Back Caller???s Concern: [facility] calling back and is requesting a new prescription order on the Mounjaro with clarifications on the directions. How many weeks does patient inject the 2.5 mg mg until increased to 5.0 mg Does message need to be routed? Yes-Action Needed SIONS REPAIR TECHNICIAN * Telephone Encounter - Antonia Moon - 12/22/2022 10:24 AM CST Images from the original note were not included. Medication Question/Clarification Medication Name(s): tirzepatide (Mounjaro) 2.5 mg/0.5 mL pen injector What is the question or clarification needed? The pharmacy would like the instructions for the Rx to be clarified. The instruction states for the patient to increase the Rx. It needs to states when the patient is to do so. If needed, Pharmacy(s) medication(s) should be sent to: [facility] - [address] AT Portal to [facility] Additional Comments: please reach out to [facility] when the direction are updated. Does message need to be routed? Yes-Action Needed SIONS REPAIR TECHNICIAN documented in this encounter Plan of Treatment Not on file documented as of this encounter Visit Diagnoses Not on filedocumented in this encounter Care Teams Saw Boss Relationship Specialty Start Date End Date James Gentile MD [address] [place] [id number] PCP - General Internal Medicine 03/01/22 01/17/24 documented as of this encounter
--- OUTSIDE RECORDS SUMMARY | 2024-02-12 03:53 | XMS_ITS | Encounter Summary ---
Author Organization [facility] Address [address] [place] [address] Phone Care Team Providers Care Instructor Robotics Name Role Phone James Gentile MD Primary Care Provider + [phone] Reason for Referral * Diagnostic Imaging (Routine) - Closed Specialty Diagnoses / Procedures Referred By Contac t Referred To Contact Diagnoses Primary biliary cirrhosis (HCC) Elevated alkaline phosphatase level Procedures US RUQ Mimi Jamil NP [address] [place] [address] Phone: tel: fax: [address] [phone] Referral ID Status Reason Start Date Expiration Date Visits Re quested Visits Authorized [id number] Closed 12/08/2022 01/07/2024 1 1 * Diagnostic Imaging (Routine) - Closed Specialty Diagnoses / Procedures Referred By Contac t Referred To Contact Diagnoses Primary biliary cirrhosis (HCC) Procedures Dexa Axial Skeleton Bone Density 1 or 2 Site Mimi Jamil NP [address] [place] [address] Phone: tel: fax: [address] [phone] Referral ID Status Reason Start Date Expiration Date Visits Re quested Visits Authorized [id number] Closed 11/30/2022 12/30/2023 1 1 Encounter Details Date Type Department Care Team (Late st Contact Info) Description 11/30/2022 1:40 PM CDT Office Visit [facility] Gastroenterology [address] [facility] 12[address] [place] [address] [place] [address] Mimi Jamil NP [address] [place] [address] Primary biliary cirrhosis (HCC) (Primary Dx); Elevated alkaline phosphatase level Social History Tobacco Use Types Packs/Day [...] points, staff should administer the PHQ-9) 0 07/28/2021 Personal Safety Answer Date Recorded Have you [...] Sign Reading Time Taken Comments Blood Pressure 144/72 11/30/2022 1:31 PM CDT Pulse 63 11/30/2022 1:31 PM CDT Temperature 36.7 ??C (98.1 ??F) 11/30/2022 1:31 PM CD T Respiratory Rate - - Oxygen Saturation - - Inhaled Oxygen Concentration - - Weight 101.6 kg (224 lb) 11/30/2022 1:31 PM CDT Height 162.6 cm (5' 4 ) 11/30/2022 1:31 PM CDT Body Mass Index 38.45 11/30/2022 1:31 PM CDT documented in this encounter Patient Instructions * Patient Instructions* Mimi Jamil NP - 11/30/2022 1:40 PM CDT It was nice to see you in clinic today and I appreciate you putting your trust in my care. If you had any lab tests or imaging studies today that we did not review in clinic, I will be either mailingor calling you with the results within the next two weeks. If you sign up for [employer], I can also post notes to you on that platform. If any further questions arise, please do not hesitate to contact my office with any questions. documented in this encounter Progress Notes * Mimi Jamil NP - 11/30/2022 1:40 PM CDT HEPATOLOGY CLINIC VISIT Kimberly Isabel Age: 62 y.o. Date of : 1960 Reason for Visit: PBC History of Present Illness: Kimberly Isabel is a 62 y.o. female who was referred for PBC. She has a PMH of HTN, HLD, T2DM, hypothyroidism. Patient was previously being managed by in [place], reportedly diagnosed with PBC several years ago and has been on ursodiol 500 mg three times daily since then. Mot recent labs are from 11/24/21 with normal liver enzymes, alk phos 210, AMA-. FibroScan on same day showed kPa 7.3,CAP 269. Of note, she had a liver biopsy in 2017 that was re-read here. Results showed steatosis, not indicative of steatohepatitis. There is ductular reaction with fibrosis, concerning for biliary issue which raises suspicion for a biliary issue. There are no granulomata or portal inflammation noted. Clinical correlation with MRCP findings and serology is recommended. Patient was instructed to get MRI/MRCP next but she did not get this done due to cost and claustrophobia. Patient reports she is doing well, has some itching in the soles of her feet. She has gained weight, 40 lbs over the last year. Reports worsening fatigue, not getting exercise. She denies abdominal pain, n/v/d, or other abnormal symptoms at this time. I reviewed patient's active problem list, medication list, allergies, family history, social history, health maintenance Patient Active Problem List Diagnosis Acquired hypothyroidism Essential (primary) hypertension Hyperlipidemia, mixed Non-toxic multinodular goiter Other hydrocephalus (HCC) Primary biliary cirrhosis (HCC) Fibromyalgia Family history of [place]'s disease Preventative health care Type 2 diabetes mellitus without complication, without long-term current use of insulin (CMS/HCC) (HCC) History of hydrocephalus Class 2 severe obesity due to excess calories with serious comorbidity and body mass index (BMI) of36.0 to 36.9 in adult (HCC) Elevated alkaline phosphatase level Past Medical History: Diagnosis Date Allergic Arthritis Autoimmune disease (CMS/HCC) (HCC) Diabetes mellitus (HCC) Thyroid disease Past Surgical History: Procedure Laterality [...] Onset Cancer Mother Other (Cerebrial Hemmorage) Father [place]'s disease Brother Current Outpatient Medications Medication Sig [...] HPI; all other systems negative. Objective: BP 144/72 Pulse 63 Temp 36.7 ??C (98.1 ??F) Ht 162.6 cm (5' 4 ) Wt 101.6 kg (224 lb) BMI 38.45 kg/m?? General: Well-developed female in NAD. HEENT: [...] Review Lab Results Component Value Date WBC 7.0 11/30/2022 HGB 13.2 11/30/2022 HCT 39.1 11/30/2022 MCV 87.5 11/30/2022 LABPLAT 354 04/18/2022 Lab Results Component Value Date GLUCOSE 144 05/01/2022 CALCIUM 10.2 11/24/2021 SODIUM 139 07/28/2021 POTASSIUM 3.7 07/28/2021 CO2 32 (H) 11/24/2021 CHLORIDE 99 07/28/2021 BUNSER 11 07/28/2021 CREATININE 0.98 11/24/2021 Lab Results Component Value Date ALT 22 11/24/2021 AST 26 11/24/2021 ALKPHOS 210 (H) 11/24/2021 BILITOT 0.49 11/24/2021 Lab Results Component Value Date INR 1.0 04/18/2022 Imaging: I reviewed patient's lab results, imaging Assessment/Plan: Elevated alkaline phosphatase level Patient with elevated alk phos, last level was 210 one year ago while taking ursodiol. Liver biopsyfrom 2017 showed steatosis but not steatohepatitis; ductular reaction with fibrosis, concerning forbiliary issue. Unclear if she has PBC. She [...] D levels. She should continue taking genoveva fornow. Patient has gained 40 lbs over the last year with known hepatic steatosis. Discussed the importanceof weight loss. She will talk to Dr. [...] will return to clinic in 1 year. Mimi Jamil NP 11/30/2022 3:06 PM My total encounter time on 11/30/2022 was 28 minutes which was spent in the activities documented in the note. This includes time spent prior to the visit and after the visit in direct care of the patient. This time does not include time spent in any separately reportable services. documented in this encounter Miscellaneous Notes * Result Encounter Note - Mimi Jamil NP - 12/29/2022 7:10 AM CHECK PROCESSING CLERK Patient with PBC. Alk phos stable, predominantly liver. Continue with genoveva. Await US results. K PROCESSING CLERK * Assessment & Plan Note - Mimi Jamil NP - 11/30/2022 3:05 PM CDT Associated Problem(s): Elevated alkaline phosphatase level Patient with elevated alk phos, last level was 210 one year ago while taking ursodiol. Liver biopsyfrom 2017 showed steatosis but not steatohepatitis; ductular reaction with fibrosis, concerning forbiliary issue. Unclear if she has PBC. She [...] D levels. She should continue taking genoveva fornow. Patient has gained 40 lbs over the last year with known hepatic steatosis. Discussed the importanceof weight loss. She will talk to Dr. [...] will return to clinic in 1 year. * Addendum Note - Mimi Jamil NP - 11/30/2022 1:40 PM CDTAddended by: MIMI JAMIL on: 12/08/2022 10:19 AM Modules accepted: Orders documented in this encounter Plan of Treatment Not on file documented as of this encounter Procedures Procedure Name Priority Date/Time Associated Diagnosis Comments ALKALINE PHOSPHATASE, ISOENZYMES Routine 12/22/2022 3:20 PM CHECK PROCESSING CLERK Primary biliary cirrhosis (HCC) Elevated alkaline phosphatase level documented in this encounter Results * US RUQ (01/18/2023 8:39 AM CHECK PROCESSING CLERK) Anatomical Region Laterality Modality Abdomen N/A Ultrasound 01/19/2023 2:19 PM CHECK PROCESSING CLERK Narrative 01/19/2023 2:23 PM CHECK PROCESSING CLERK EXAM DESCRIPTION: ?? US RUQ REASON FOR [...] in the main portal vein. GALLBLADDER: ??The x ray operator reports that there are gallstones along the [...] ??normal. OTHER: ??No other significant finding. IMPRESSION: Helium Arc Welder reports the presence of gallstones although these [...] Electronically signed by ??Emmett Nicole M.D. CH: CH D: ??01/19/2023 2:23 PM T: ??01/19/2023 2:23 PM Report ID: [id number] Reading Location: ??[id number] Procedure Note Emmett Nicole Jr., MD - [...] shown in themain portal vein. GALLBLADDER: The x ray operator reports that there are gallstones along the [...] normal. OTHER: No other significant finding. IMPRESSION: Helium Arc Welder reports the presence of gallstones although these [...] Emmett Nicole M.D. CH: CRISTINO Report ID: [id number] Reading Location: [id number] Mimi Jamil NP IMG US PROCEDURES Final Result * Dexa Axial Skeleton Bone Density 1 or 2 Site (01/18/2023 7:56 AM CHECK PROCESSING CLERK) Anatomical Region Laterality Modality Body N/A Mammography 01/18/2023 9:48 AM CHECK PROCESSING CLERK Narrative 01/18/2023 9:49 AM CHECK PROCESSING CLERK EXAM DESCRIPTION: DEXA AXIAL SKELETON BONE DENSITY 1 OR MORE SITES REASON FOR STUDY: 62 y/o ?? year old ??F ??with given history of: ??likely PBC. ?? Postmenopausal status. ??Patient has taken/is taking vitamin-D and calcium ? Rn Admission/Model: HoloFlythegap A (S/N [id number]) CLINICAL INFORMATION: Current height: ??63 ??inches ? [...] AM T: ??01/18/2023 9:49 AM Report ID: [id number] Reading Location: ??[id number] Procedure Note Bonny Lang MD - 01/18/2023 EXAM DESCRIPTION: DEXA AXIAL SKELETON BONE DENSITY 1 OR MORE SITES REASON FOR STUDY: 62 y/o year old F with given history of: likelyPBC. Postmenopausal status. Patient has taken/is taking vitamin-D and calcium Rn Admission/Model: WhiteSmoke A (S/N [id number]) CLINICAL INFORMATION: Current height: 63 inches Maximum [...] Electronically signed by Bonny Lang M.D. TW: TW Report ID: [id number] Reading Location: [place] [address] Mimi Jamil NP IMG DXA PROCEDURES Final Result * (ABNORMAL) Alkaline phosphatase, isoenzymes (12/22/2022 3:20 PM CHECK PROCESSING CLERK) Pathologist [facility] Alk phos 177(H) 44 - 121 IU/L [facility] - 01 Liver Fraction: 76 18 - 85 % [facility] - 01 Bone Fraction 23 14 - 68 % [facility] - 01 Intestinal Frac.: 1 0 - 18 % [facility] - 01 Blood 12/22/2022 3:20 PM CHECK PROCESSING CLERK 12/22/2022 Narrative [facility] - 12/25/2022 3:08 PM CHECK PROCESSING CLERK Performed at: ??01 - [facility] ??[id number] Principal Web Developer: Juancarlos Velásquez PhD, Phone: ??[phone] Mimi Jamil NP LAB BLOOD ORDERABLES Fin al Result [facility] - 01 * Vitamin A (11/30/2022 5:36 PM CDT) [facility] Vitamin A 55.5 32.5 - 78.0 mcg/dL [facility] Comment: ADDITIONAL INFORMATION This test was developed and its performance characteristics determined by [facility] in a manner consistent with CLIA requirements. This test has not been cleared or approved by the U.S. Food and Drug Administration. Test Performed by: [facility]it [facility] [place] [address] [place] [address] Principal Web Developer: Shree Rhodes M.D. Ph.D.; IA# [id number] Blood 11/30/2022 5:36 PM CDT 11/30/2022 6:15 PM CDT Mimi Jamil NP LAB BLOOD ORDERABLES Fin al Result [facility] [place] [address] * Gamma GT (11/30/2022 1:56 PM CDT) Pathologist [facility] GGT 14 5 - 36 IU/L [facility] Blood 11/30/2022 1:56 PM CDT 11/30/2022 2:20 PM CDT Mimi Jamil NP LAB BLOOD ORDERABLES Fin al Result Performing Organization Address City/[facility] Co de Phone Number [facility] * CBC with auto differential (11/30/2022 1:56 PM CDT) Pathologist [facility] White Blood Count 7.0 3.6 - 11.2 K/uL [facility] RBC 4.47 3.63 - 4.92 M/uL [facility] Hemoglobin 13.2 11.9 - 15.5 g/dL [facility] Hematocrit 39.1 36.1 - 44.3 % [facility] MCV 87.5 80.0 - 97.6 fL [facility] MCH 29.5 26.7 - 33.7 pg [facility] MCHC 33.7 32.7 - 35.5 g/dL [facility] RBC Dist Width 13.2 12.3 - 17.0 % [facility] Platelet Count 288 140 - 440 K/uL [facility] MPV 9.5 6.8 - 10.4 fL [facility] Neutrophils % 64.0 38.7 - 74.5 % [facility] Lymphocyte % 27.4 20.0 - 54.3 % [facility] Monocytes % 5.1 4.3 - 13.5 % [facility] Eosinophils % 2.4 0.0 - 6.0 % [facility] Basophil % 1.1 0.0 - 3.0 % [facility] Absolute Neutrophil 4.4 1.8 - 6.6 K/uL [facility] Absolute Lymphocyte 1.9 0.8 - 3.3 K/uL [facility] Absolute Monocyte 0.4 0.2 - 1.2 K/uL [facility] Absolute Eosinophil 0.2 0.0 - 0.5 K/uL [facility] Absolute Basophil 0.1 0.0 - 0.2 K/uL [facility] Nucleated RBC % 0.0 0.0 - 0.4 /100 WBC [facility] Blood 11/30/2022 1:56 PM CDT 11/30/2022 2:20 PM CDT Mimi Jamil FRAUD PREVENTION ANALYST LAB BLOOD ORDERABLES Fin al Result Performing Organization Address City/[facility] Co de Phone Number [facility] * Vitamin D 25 hydroxy (11/30/2022 1:56 PM CDT) Pathologist [facility] Vitamin D 60.1 20.0 - 100.0 ng/mL [facility] Comment: VITAMIN D DEFICIENCY = LESS THAN or EQUAL TO 20 ng/mL VITAMIN D INSUFFICIENCY = 21 - 29 ng/mL VITAMIN D SUFFICIENT = 30-100 ng/mL Blood 11/30/2022 1:56 PM CDT 11/30/2022 2:20 PM CDT Mimi Jamil FRAUD PREVENTION ANALYST LAB BLOOD ORDERABLES Fin al Result [facility] * (ABNORMAL) Comprehensive metabolic panel (11/30/2022 1:56 PM CDT) Total Protein 6.9 6.1 - 8.4 g/dL [facility] Albumin 4.1 3.5 - 5.2 g/dL [facility] Calcium 9.7 8.6 - 10.3 mg/dL [facility] Comment:Repeated and Verifie d BUN 16 7 - 23 mg/dL [facility] Total Bilirubin 0.32 0.20 - 1.40 mg/dL [facility] Alk Phos, Total 169(H) 35 - 129 IU/L [facility] AST (SGOT) 26 11 - 47 IU/L [facility] ALT (SGPT) 22 6 - 53 IU/L [facility] Creatinine 0.84 0.60 - 1.10 mg/dL [facility] Sodium 138 135 - 145 mmol/L [facility] Potassium 4.0 3.3 - 5.1 mmol/L [facility] Chloride 100 95 - 107 mmol/L [facility] CO2 Content 26 21 - 29 mmol/L [facility] Glucose 141(H) 64 - 99 mg/dL [facility] Comment: NONFASTING GLUCOSE RANGE = 64-199 mg/dL FASTING GLUCOSE 64 - 99 = NORMAL FASTING GLUCOSE 100 - 125 = IMPAIRED FASTING GLUCOSE FASTING GLUCOSE >=126 = PROVISIONAL DIAGNOSIS OF DIABETES eGFR 78.5 >60.0 mL/min/1.7 3 m2 [facility] Blood 11/30/2022 1:56 PM CDT 11/30/2022 2:20 PM CDT Mimi Jamil FRAUD PREVENTION ANALYST LAB BLOOD ORDERABLES Fin al Result [facility] documented in this encounter Visit Diagnoses Diagnosis Primary biliary cirrhosis (HCC)- Primary Biliary cirrhosis Elevated alkaline phosphatase level Primary biliary cirrhosis (HCC) Biliary cirrhosis Primary biliary cirrhosis (HCC) Biliary cirrhosis Elevated alkaline phosphatase level documented in this encounter Care Teams Instructor Robotics Relationship Specialty Start Date End Date James Gentile MD [address] [place], [place] [id number] PCP - General Internal Medicine 03/01/22 01/17/24 documented as of this encounter
--- OUTSIDE RECORDS SUMMARY | 2024-02-12 03:53 | XMS_ITS | Encounter Summary ---
Author Organization [facility] Address [address] [place] [address] Phone Care Team Providers Care Tv Host Name Role Phone James Gentile MD Primary Care Provider + [phone] Encounter Details Date Type Department Care Team (Late st Contact Info) Description 12/20/2022 Telephone [facility] Gastroenterology [address] [place] [address] 12th [place] [address] [place] [address] Beba Briceño, JUNIE Social History [...] Telephone Encounter - Beba Briceño RN - 12/20/2022 8:38 AM CST Attempted to reach the patient at contact number in regards to lab work she has due at [facility]. Left a voicemail for the patient to return call to the clinic. Camera360 message sent. STRIAL ROOFER documented in this encounter Plan of Treatment Not on file documented as of this encounter Visit Diagnoses Not on filedocumented in this encounter Care Teams Tv Host Relationship Specialty Start Date End Date James Gentile MD [address] [place] [address] PCP - General Internal Medicine 03/01/22 01/17/24 documented as of this encounter
--- OUTSIDE RECORDS SUMMARY | 2024-02-12 03:53 | XMS_ITS | Encounter Summary ---
Author Organization [facility] Healthcare Address [address] [place] [address] Care Team Providers Care Lever Tender Name Role Phone James Gentile MD Primary Care Provider + [phone] Reason for Visit * Reason Comments Diabetes Has chart of her num bers Encounter Details Date Type Department Care Team ([facility] st Contact Info) Description 12/13/2022 2:30 PM CDT Office Visit [facility] Primary Care [address] [place] [phone] James Gentile MD [address] [place] [phone] Type 2 diabetes mellitus without complication, without long-term current use of insulin (CMS/HCC) (HCC) (Primary Dx); Class 2 severe obesity due to excess calories with serious comorbidity and body mass index (BMI) of 36.0 to 36.9 in adult (HCC); Essential (primary) hypertension; Primary biliary cirrhosis (HCC); History of hydrocephalus; Acquired hypothyroidism; Need for vaccination Social History Tobacco Use Types Packs/Day Years [...] Sign Reading Time Taken Comments Blood Pressure 122/78 12/13/2022 2:19 PM CDT Pulse 66 12/13/2022 2:19 PM CDT Temperature 37.1 ??C (98.7 ??F) 12/13/2022 2:19 PM CD T Respiratory Rate 18 12/13/2022 2:19 PM CDT Oxygen Saturation 97% 12/13/2022 2:19 PM CDT Inhaled Oxygen Concentration - - Weight 103.5 kg (228 lb 3.2 oz) 12/13/2022 2:19 PM CDT Height 162.6 cm (5' 4 ) 12/13/2022 2:19 PM CDT Body Mass Index 39.17 12/13/2022 2:19 PM CDT documented in this encounter Patient Instructions * Patient Instructions* James Gentile MD - 12/13/2022 2:30 PM CDT Start mounjaro. Once per week. Monitor blood sugars. Also monitor blood pressure now that off hctz and lasix because can creep up over 6 weeks. documented in this encounter Ordered Prescriptions Prescription Sig Dispense Quantity Refills Last Filled Start Date End Date tirzepatide (Mounjaro) 2.5 mg/0.5 mL pen injectorIndication s:Weight Loss Management for Obese Patient (BMI >= 30) Inject 2.5 mg under the skin once a week then increase to 5.0 mg 2 mL 1 12/13/2022 3 documented in this encounter Progress Notes * James Gentile MD - 12/13/2022 2:30 PM CDT Images from the original note were not included. Todays Encounter Date: 12/13/2022 Last visit: 09/27/2022 All Appts with PCP recent/future) Next/future visit with Care Team Recent Visits Date Type Provider Dept 09/27/22 Office Visit James Gentile MD [facility] [place] [facility] Showing recent visits within past 180 days and meeting all other requirements Today's Visits Date Type Provider Dept 12/13/22 Office Visit James Gentile MD [facility] [place] [facility] Showing today's visits and meeting all other requirements Future Appointments Date Type Provider Dept 03/13/23 Appointment [facility] [place] [facility] 04/11/23 Appointment James Gentile MD [facility] [place] [facility] 05/14/23 Appointment James Gentile MD [facility] [place] [facility] Showing future appointments within next 180 days and meeting all other requirements Future Appointments Date Time Provider Department Center 01/18/2023 7:45 AM [facility] MOB 1 DEXA RM [id number] BRST [facility] MOB 1 01/18/2023 8:30 AM MHE US RM 2 MHE US MHE Main 01/31/2023 2:00 PM MHE MAMMO RM 1 MHE BR IMG [facility] Main 03/13/2023 1:30 PM James Gentile MD PCP IM 250 PC 04/11/2023 1:30 PM James Gentile MD PCP IM 250 PC 05/14/2023 1:30 PM James Gentile MD PCP IM 250 PC 12/06/2023 1:40 PM Latrice Freedman NP [facility] Patient ID: Kimberly Isabel is a 62 y.o. female. Chief Complaint. Chief Complaint Patient presents with Diabetes Has chart of her numbers Patient Care Team: James Gentile MD as PCP - General (Internal Medicine) HPI/ROS. Patient is a 62 y.o. female here for follow up on chronic conditions History obtained from patient Todays Encounter: 12/13/2022 Gained weight since 09/27 from 211 to 228. Fbs is 140-150 and pp Tinitus better with holding triamterem 37.5/25 (Used to take triamterene-HCTZ). Not needing to see neuro anymore. Used to have symptoms of headache lying down. 09/27/2022 Review of Systems: See HPI Past Social,Medical,family Hx: Past Medical History: Diagnosis [...] Onset Cancer Mother Other (Cerebrial Hemmorage) Father Thayer's disease Brother Current Medications and Allergies: Allergies Allergen Reactions Milnacipran Unknown Trazodone Unknown Vilazodone Unknown Outpatient Encounter Medications as of 12/13/2022 Medication Sig Dispense Refill cetirizine (ZyrTEC) 10 mg tablet Take 1 tablet (10 mg total) by mouth daily cholecalciferol (VITAMIN D-3) 25 mcg (1,000 unit) tablet Take 1 tablet (1,000 Units total) by mouthdaily clobetasoL (TEMOVATE) 0.05 % ointment Apply topically levothyroxine (SYNTHROID) 100 mcg tablet Take 1 tablet (100 mcg total) by mouth daily (Patient taking differently: Take 0.5 tablets (50 mcg total) by mouth every other day) 90 tablet 4 levothyroxine (SYNTHROID) 125 mcg tablet Take 1 tablet (125 mcg total) by mouth daily 90 tablet 4 multivitamin tablet Take 1 tablet by mouth daily ursodioL (GENOVEVA FORTE) 500 mg tablet TAKE 1 TABLET 3 TIMES A DAY 270 tablet 1 [DISCONTINUED] furosemide (LASIX) 20 mg tablet see administration instructions. Take one tablet 2-3days per week in the morning for swelling [DISCONTINUED] LORazepam (ATIVAN) 0.5 mg tablet Take 0.5mg orally x 1 20-30 minute prior to arrivalfor MRI. Can repeat 0.5mg orally x 1 after checking in for MRI if needed 2 tablet 0 [DISCONTINUED] triamterene-hydroCHLOROthiazide 37.5-25 mg per tablet TAKE 1 TABLET DAILY 90 tablet 1 tirzepatide (Mounjaro) 2.5 mg/0.5 mL pen injector Inject 2.5 mg under the skin once a week then increase to 5.0 mg 2 mL 1 No facility-administered encounter medications on file as of 12/13/2022. Physical Exam: Constitutional: Body mass index is 39.17 kg/m??. Vitals: 12/13/22 1419 BP: 122/78 BP Location: Left arm Patient Position: Sitting Pulse: 66 Resp: 18 Temp: 37.1 ??C (98.7 ??F) SpO2: 97% Weight: 103.5 kg (228 lb 3.2 oz) Height: 162.6 cm (5' 4 ) heart RRR and Lungs CTA Diabetic foot exam: Left monofilament exam: normal Right monofilament exam: normal Results/Data: Old records were reviewed. I have personally reviewed the below Data Results for orders placed or performed in visit on 12/13/22 DIABETES EYE EXAM Result Value Ref Range SCRIBED DIABETIC DILATED EYE EXAM Normal No results found. Diagnosis: 1. Type 2 diabetes mellitus without complication, without long-term current use of insulin ([facility]) ([facility]) 2. Class 2 severe obesity due to excess calories with serious comorbidity and body mass index (BMI)of 36.0 to 36.9 in adult ([facility]) 3. Essential (primary) hypertension 4. Primary biliary cirrhosis ([facility]) 5. History of hydrocephalus 6. Acquired hypothyroidism 7. Need for vaccination Assessment/Plan DIAGNOSES/ASSESSMENT Diagnoses and all orders for this visit: Type 2 diabetes mellitus without complication, without long-term current use of insulin ([facility]) ([facility]) (E11.9) (Primary) Assessment & Plan: Uncontrolled. Last hemoglobin A1c 7.0 in 09/27/22. Fasting blood sugar running between 140-150. Prior to meal running 135-150 with 2 hour postprandial coming down to baseline. Begin trial of gLP (Mounjaro). Monitor readings and follow up in 3 months Orders: - Albumin Creatinine Ratio, Urine; Future Class 2 severe obesity due to excess calories with serious comorbidity and body mass index (BMI) of36.0 to 36.9 in adult (HCC) (E66.01, Z68.36) Assessment & Plan: Not at goal. Continue diet and exercise. Patient will be starting on Mounjaro to help with blood sugar control as well as weight loss Essential (primary) hypertension (I10) Assessment & Plan: Not at goal. Blood pressure slightly elevated today 140/80 when repeated. Initially when came in vitals recorded lower with blood pressure 122/78. This is after eating without medication. Begin monitoring blood pressure at home and rule out white coat effect. If blood pressure increases may need totemporarily put back on hydrochlorothiazide versus other medication (has never tried anything else)such as losartan. With starting on a GLP anticipate weight loss and hopefully blood pressure will be able to go down Primary biliary cirrhosis (HCC) (K74.3) Assessment & Plan: Stable. Continue follow up with hepatology. Has appointment for scan coming up History of hydrocephalus (Z86.69) Acquired hypothyroidism (E03.9) Assessment & Plan: Controlled/stable. Continue current meds and plan Need for vaccination (Z23) - Flu Vaccine Quad PF 3y+ IM - Afluria Quad Other orders - tirzepatide (Mounjaro) 2.5 mg/0.5 mL pen injector; Inject 2.5 mg under the skin once a week then increase to 5.0 mg Type 2 diabetes mellitus without complication, without long-term current use of insulin (CMS/HCC) (HCC) Uncontrolled. Last hemoglobin A1c 7.0 in 09/27/22. Fasting blood sugar running between 140-150. Prior to meal running 135-150 with 2 hour postprandial coming down to baseline. Begin trial of gLP (Mounjaro). Monitor readings and follow up in 3 months Class 2 severe obesity due to excess calories with serious comorbidity and body mass index (BMI) of36.0 to 36.9 in adult (HCC) Not at goal. Continue diet and exercise. Patient will be starting on Mounjaro to help with blood sugar control as well as weight loss Primary biliary cirrhosis (HCC) Stable. Continue follow up with hepatology. Has appointment for scan coming up Essential (primary) hypertension Not at goal. Blood pressure slightly elevated today 140/80 when repeated. Initially when came in vitals recorded lower with blood pressure 122/78. This is after eating without medication. Begin monitoring blood pressure at home and rule out white coat effect. If blood pressure increases may need totemporarily put back on hydrochlorothiazide versus other medication (has never tried anything else)such as losartan. With starting on a GLP anticipate weight loss and hopefully blood pressure will be able to go down Acquired hypothyroidism Controlled/stable. Continue current meds and plan Patient Instructions Start mounjaro. Once per week. Monitor blood sugars. Also monitor blood pressure now that off hctz and lasix because can creep up over 6 weeks. PLAN & MEDICATION MANAGEMENT Orders Placed This Encounter Flu Vaccine Quad PF 3y+ IM - Afluria Quad Albumin Creatinine Ratio, Urine tirzepatide (Mounjaro) 2.5 mg/0.5 mL pen injector Medication Management I have discontinued Kimberly Isabel's furosemide, LORazepam, and triamterene-hydroCHLOROthiazide.I am also having her start on Mounjaro. Additionally, I am having her maintain her multivitamin, cholecalciferol, cetirizine, clobetasoL, levothyroxine, levothyroxine, and ursodioL. James Gentile MD documented in this encounter Miscellaneous Notes * Assessment & Plan Note - James Gentile MD - 12/13/2022 8:00 PM CDT Associated Problem(s): Acquired hypothyroidism Controlled/stable. Continue current meds and plan * Assessment & Plan Note - James Gentile MD - 12/13/2022 7:59 PM CDT Associated Problem(s): Essential (primary) hypertension Not at goal. Blood pressure slightly elevated today 140/80 when repeated. Initially when came in vitals recorded lower with blood pressure 122/78. This is after eating without medication. Begin monitoring blood pressure at home and rule out white coat effect. If blood pressure increases may need totemporarily put back on hydrochlorothiazide versus other medication (has never tried anything else)such as losartan. With starting on a GLP anticipate weight loss and hopefully blood pressure will be able to go down * Assessment & Plan Note - James Gentile MD - 12/13/2022 7:57 PM CDT Associated Problem(s): Primary biliary cirrhosis (HCC) Stable. Continue follow up with hepatology. Has appointment for scan coming up * Assessment & Plan Note - James Gentile MD - 12/13/2022 7:56 PM CDT Associated Problem(s): Class 2 severe obesity due to excess calories with serious comorbidity and body mass index (BMI) of 36.0 to 36.9 in adult (HCC) Not at goal. Continue diet and exercise. Patient will be starting on Mounjaro to help with blood sugar control as well as weight loss * Assessment & Plan Note - James Gentile MD - 12/13/2022 7:55 PM CDT Associated Problem(s): Type 2 diabetes mellitus without complication, without long-term current useof insulin (CMS/HCC) (HCC) Uncontrolled. Last hemoglobin A1c 7.0 in 09/27/22. Fasting blood sugar running between 140-150. Prior to meal running 135-150 with 2 hour postprandial coming down to baseline. Begin trial of gLP (Mounjaro). Monitor readings and follow up in 3 months documented in this encounter Plan of Treatment Not on file documented as of this encounter Visit Diagnoses Diagnosis Type 2 diabetes mellitus without complication, without long-term current use of insulin (CMS/HCC) (HCC)- Primary Class 2 severe obesity due to excess calories with serious comorbidity and body mass index (BMI) of 36.0 to 36.9 in adult (HCC) Essential (primary) hypertension Unspecified essential hypertension Primary biliary cirrhosis (HCC) Biliary cirrhosis History of hydrocephalus Other personal history of disorders of nervous system and sense organs Acquired hypothyroidism Unspecified hypothyroidism Need for vaccination Need for prophylactic vaccination and inoculation against unspecified single disease documented in this encounter Discontinued Medications Medication Sig Discontinue Reason Start Date End Da te furosemide (LASIX) 20 mg tablet see administration instructions. Take one tablet 2-3 days per week in the morning for swelling Therapy completed 09/16/2020 12/13/2022 LORazepam (ATIVAN) 0.5 mg tabletIndications:cl austrophobia Take 0.5mg orally x 1 20-30 minute prior to arrival for MRI. Can repeat 0.5mg orally x 1 after checking in for MRI if needed Therapy completed 01/02/2022 12/13/2022 triamterene-hydroCHL OROthiazide 37.5-25 mg per tablet TAKE 1 TABLET DAILY Therapy completed 06/04/2022 12/13/2022 documented as of this encounter Orders Immunization/Injection Count Last Ordered Date First Ordered Date FLU VACCINE QUAD PF 3Y+ IM - AFLURIA 1 02/2022 documented in this encounter Care Teams Lever Tender Relationship Specialty Start Date End Date James Gentile MD [address] [place] [id number] PCP - General Internal Medicine 03/01/22 01/17/24 documented as of this encounter
--- OUTSIDE RECORDS SUMMARY | 2024-02-12 03:53 | XMS_ITS | Encounter Summary ---
Author Organization [facility] Healthcare Address [address] [place] [address] Care Team Providers Care Slide Fastener Repairer Name Role Phone James Gentile MD Primary Care Provider + [phone] Reason for Referral * Diagnostic Imaging (Routine) - Closed Specialty Diagnoses / Procedures Referred By Contac t Referred To Contact Diagnoses History of hydrocephalus Procedures XR Lumbar Spine Complete Case Buc[facility] [address] [place] [address] Phone: tel: fax: [address] [phone] Referral ID Status Reason Start Date Expiration Date Visits Re quested Visits Authorized [id number] Closed 04/18/2022 05/18/2023 1 1 Reason for Visit * Diagnostic Imaging (Routine) - Closed Specialty Diagnoses / Procedures Referred By Contac t Referred To Contact Diagnoses History of hydrocephalus Procedures XR Lumbar Spine Complete Case Bucio Si, MD [address] [place] [address] [address] [place] [address] Phone: tel: fax: [address] [phone] Referral ID Status Reason Start Date Expiration Date Visits Re quested Visits Authorized [id number] Closed 04/18/2022 05/18/2023 1 1 Encounter Details Date Type Department Care Team (Latest Contact Info) Description 04/25/2022 10:17 AM CDT - 04/25/2022 11:59 PM CDT Hospital Encounter [facility] Diagnostic Imaging [address] [place] [address] History of hydrocephalus Discharge Disposition: Discharge to home or self care Social History Tobacco Use Types Packs/Day Years Used Date Smoking Tobacco: Never Smokeless Tobacco: Never AUDIT-C Answer Date Recorded Q1: How often do you have a drink containing alc ohol? Monthly or less 07/28/2021 Average Number of Drinks Not on file 022 Frequency of Binge Drinking Not on file 07/13 PHQ-2 Answer Date Recorded PHQ-2 Total Score (If total score is 3 or more points, staff should administer the PHQ-9) 0 07/28/2021 Comments No Sex and Gender Information Value [...] tablet Take 1 tablet by mouth daily buPROPion XL (WELLBUTRIN XL) 150 mg 24 hr tablet Take 1 tablet (150 mg total) by mouth every morning 90 tablet 3 03/02/2022 3 clobetasoL (TEMOVATE) 0.05 % ointment Apply topically 4 furosemide (LASIX) 20 mg tablet see administration instructions. Take one tablet 2-3 days per week in the morning for swelling 09/16/2020 3 levothyroxine (SYNTHROID) 100 mcg tablet Take 1 tablet (100 mcg total) by mouth daily 90 tablet 4 09/09/2021 4 LORazepam (ATIVAN) 0.5 mg tabletIndicatio ns:claustrophob ia Take 0.5mg orally x 1 20-30 minute prior to arrival for MRI. Can repeat 0.5mg orally x 1 after checking in for MRI if needed 2 tablet 01/02/2022 11/01/202 3 triamterene-hyd roCHLOROthiazid e 37.5-25 mg per tablet TAKE 1 TABLET DAILY 90 tablet 03/24/2022 3 ursodioL (GENOVEVA FORTE) 500 mg tablet TAKE 1 TABLET 3 TIMES A DAY 270 tablet 03/24/2022 3 documented as of this encounter Discharge Disposition Disposition Code Departure Means Destination Discharge to home or self care documented in this encounter Plan of Treatment Not on file documented as of this encounter Procedures Procedure Name Priority Date/Time Associated Diagnosis Comments XR SPINE LUMBAR 6 OR MORE VIEWS Schedule Routine, Read Routine (OP Routine) 04/25/2022 10:36 AM CDT History of hydrocephalus documented in this encounter Results * XR Lumbar Spine Complete (04/25/2022 10:36 AM CDT) Anatomical Region Laterality Modality L-spine N/A Computed Radiogr aphy 04/26/2022 6:58 AM CDT Narrative 04/26/2022 6:59 AM CDT EXAM DESCRIPTION: XR SPINE LUMBAR 6 OR MORE VIEWS REASON FOR STUDY: Lumbar spondylosis. ?? FINDINGS: 7 views submitted without comparison. There are no fractures. ??There is mild L1-L2, moderate L2-L3 and mild L3-L5 degenerative disc disease. ??Flexion-extension views demonstrate no abnormal translation. ??There is mild inferior lumbar facet osteoarthritis. ??Arterial atherosclerosis is present. IMPRESSION: [id number] L1-L5 degenerative disc disease, greatest at L2-L3. THIS IS AN ELECTRONICALLY VERIFIED FINAL REPORT 04/26/2022 6:59 AM - Electronically signed by ??Raman Huizar M.D. MF: [id number] D: ??04/26/2022 6:59 AM T: ??04/26/2022 6:59 AM Report ID: [id number] Reading Location: ??[id number] Procedure Note Raman Huizar MD - 04/26/2022 EXAM DESCRIPTION: XR SPINE LUMBAR 6 OR MORE VIEWS REASON FOR STUDY: Lumbar spondylosis. FINDINGS: 7 views submitted without comparison. There are no fractures. There is mild L1-L2, moderate L2-L3 and mildL3-L5 degenerative disc disease. Flexion-extension views demonstrate noabnormal translation. There is mild inferior lumbar facet osteoarthritis.Arterial atherosclerosis is present. IMPRESSION: [id number] L1-L5 degenerative disc disease, greatest at L2-L3. THIS IS AN ELECTRONICALLY VERIFIED FINAL REPORT 04/26/2022 6:59 AM - Electronically signed by Raman Huizar M.D. MF: [email or web address] Report ID: [id number] Reading Location: [place] [address] us Case Keturah Bucio MD IMG XR PROCEDURES Final Result documented in this encounter Visit Diagnoses Diagnosis History of hydrocephalus Other personal history of disorders of nervous system and sense organs documented in this encounter Care Teams Slide Fastener Repairer Relationship Specialty Start Date End Date James Gentile MD [address] [place] [phone] PCP - General Internal Medicine 03/01/22 01/17/24 documented as of this encounter
--- OUTSIDE RECORDS SUMMARY | 2024-02-12 03:53 | XMS_ITS | Encounter Summary ---
Author Organization [facility] Healthcare Address [address] [place] [address] Care Team Providers Care Motorcycle Designer Name Role Phone James Gentile MD Primary Care Provider + [phone] Reason for Referral * MRI/CAT/PET Scan (Routine) - Closed Specialty Diagnoses / Procedures Referred By Charisse schulz Referred To Contact Radiology Diagnoses History of hydrocephalus Procedures CT Head WO Contrast Case Bucio Si, MD [address] [place] [address] [address] [place] [address] [place] [address] Phone: tel: fax: [address] [phone] Referral ID Status Reason Start Date Expiration Date Visits Re quested Visits Authorized [id number] Closed 04/18/2022 05/18/2023 1 1 Reason for Visit * MRI/CAT/PET Scan (Routine) - Closed Specialty Diagnoses / Procedures Referred By Charisse schulz Referred To Contact Radiology Diagnoses History of hydrocephalus Procedures CT Head WO Contrast Case Bucio Si, MD [address] [place] [address] [address] [place] [address] [place] [address] Phone: tel: fax: [address] [phone] Referral ID Status Reason Start Date Expiration Date Visits Re quested Visits Authorized [id number] Closed 04/18/2022 05/18/2023 1 1 Encounter Details Date Type Department Care Team (Latest Contact Info) Description 04/25/2022 9:55 AM CDT - 04/25/2022 10:16 AM CDT Hospital Encounter [facility] [id number] [place], [place] [id number] History of hydrocephalus Discharge Disposition: Discharge to [...] for MRI if needed 2 tablet 01/02/2022 3 triamterene-hyd roCHLOROthiazid e 37.5-25 mg per [...] Procedure Name Priority Date/Time Associated Diagnosis Comments CT HEAD WO CONTRAST Schedule Routine, Read Routine (OP Routine) 04/25/2022 10:15 AM CDT History of hydrocephalus documented in this encounter Results * CT Head WO Contrast (04/25/2022 10:15 AM CDT) Anatomical Region Laterality Modality Head and Neck N/A Computed Tomogra phy 04/26/2022 8:33 AM CDT Narrative 04/26/2022 8:56 AM CDT EXAM DESCRIPTION: ?? CT HEAD WO CONTRAST REASON FOR STUDY: ?? Hydrocephalus ?? Follow-up for hydrocephalus diagnosed 6 years ago. Pt reports intermittent dizziness ?? TECHNIQUE: Axial images acquired through the brain without intravenous contrast. ??Images stored on PACS. ?? Automated exposure control was used as a dose optimization technique for this examination. COMPARISON: ?? No comparison FINDINGS: BRAIN: ?? No study demonstrates mild symmetric prominence of the lateral and 3rd ventricles. ??There is slight widening of the bilateral foramina of Monro. ??No definable transependymal CSF flow. ??No mass. ??No focal cerebral lesion. ?No significant white matter abnormality. ?Tiny calcification of cord plexus at the anterior 3rd ventricular margin. EXTRA-AXIAL SPACES: ?? No fluid collections. No masses. CALVARIUM: ?? No fracture. SINUSES/MASTOIDS: ?? Mild chronic paranasal sinus disease. ORBITS: ?? No significant abnormality. OTHER: ?? No other significant abnormality. IMPRESSION: ?? No acute intracranial findings. ??Mild prominence of the lateral and 3rd ventricles. ??Mild arterial sclerotic calcification of the cavernous carotid arteries. ??Otherwise, unremarkable exam.. THIS IS AN ELECTRONICALLY VERIFIED FINAL REPORT 04/26/2022 8:56 AM - Electronically signed by ??Mary WHITMAN: J CARLOS D: ??04/26/2022 8:56 AM T: ??04/26/2022 8:56 AM Report ID: [id number] Reading Location: ??[id number] Procedure Note Donya Paez MD - 04/26/2022 EXAM DESCRIPTION: CT HEAD WO CONTRAST REASON FOR STUDY: Hydrocephalus Follow-up for hydrocephalus diagnosed 6 years ago. Pt reports intermittent dizziness TECHNIQUE: Axial images acquired through the brain without intravenous contrast. Images stored on PACS. Automated exposure control was used asa dose optimization technique for this examination. COMPARISON: No comparison FINDINGS: BRAIN: No study demonstrates mild symmetric prominence of the lateral and 3rd ventricles. There is slight widening of the bilateral foramina of Monro. No definable transependymal CSF flow. No mass. Nofocal cerebral lesion. No significant white matter abnormality. Tiny calcification of cord plexus at the anterior 3rd ventricular margin. EXTRA-AXIAL SPACES: No fluid collections. No masses. CALVARIUM: No fracture. SINUSES/MASTOIDS: Mild chronic paranasal sinus disease. ORBITS: No significant abnormality. OTHER: No other significant abnormality. IMPRESSION: No acute intracranial findings. Mild prominence of thelateral and 3rd ventricles. Mild arterial sclerotic calcification of thecavernous carotid arteries. Otherwise, unremarkable exam.. THIS IS AN ELECTRONICALLY VERIFIED FINAL REPORT 04/26/2022 8:56 AM - Electronically signed by Mary WHITMAN Report ID: [id number] Reading Location: [id number] Case Bucio MD IMG CT PROCEDURES Final Result documented in this encounter Visit Diagnoses Diagnosis History of hydrocephalus Other personal history of disorders of nervous system and sense organs documented in this encounter Care Teams Motorcycle Designer Relationship Specialty Start Date End Date James Gentile MD [address] [place] [id number] PCP - General Internal Medicine 03/01/22 01/17/24 documented as of this encounter
--- OUTSIDE RECORDS SUMMARY | 2024-02-12 03:53 | XMS_ITS | Encounter Summary ---
Author Organization [facility] Healthcare Address [address] [place] [address] Care Team Providers Care Manual Lathe Operator Name Role Phone James Gentile MD Primary Care Provider + [phone] Reason for Visit * Diagnostic Imaging (Routine) - Closed Specialty Diagnoses / Procedures Referred By Contac t Referred To Contact Diagnoses History of hydrocephalus Procedures NM Cisternogram Case Bucio Si, MD [address] [place] [address] Phone: tel: fax: [address] [phone] Referral ID Status Reason Start Date Expiration Date Visits Re quested Visits Authorized [id number] Closed 04/18/2022 05/18/2023 5 5 Encounter Details Date Type Department Care Team (Latest Contact Info) Description 05/03/2022 11:33 AM CDT - 05/03/2022 11:59 PM CDT Hospital Encounter [facility] Nuclear Medicine [address] [place] [phone] Discharge Disposition: Discharge to home or self [...] Procedure Name Priority Date/Time Associated Diagnosis Comments NM CISTERNOGRAM Schedule Routine, Read Routine (OP Routine) 05/04/2022 3:49 PM CDT History of hydrocephalus documented in this encounter Results * NM Cisternogram (05/04/2022 3:49 PM CDT) Anatomical Region Laterality Modality Spine N/A Nuclear Medicine 05/05/2022 9:05 AM CDT Narrative 05/05/2022 9:21 AM CDT EXAM DESCRIPTION: ?? NM CISTERNOGRAM RADIOPHARMACEUTICAL: 700 microcuries ??of indium 111 ??DTPA ??intrathecally REASON FOR STUDY: ?? Hydrocephalus for 6 years. ??Cognitive decline for several years. TECHNIQUE: Images were obtained 6 , 24, 48, and 72 hours after the intrathecal administration of the above radiotracer on 05/01/2022. FINDINGS: Initial images show activity within the sylvian fissures. ??Images at 24 hours show minimal migration over the convexities. ??No discrete reflux into the lateral ventricles. ??At 48 hours as well as at 72 hours, there is clear migration of radiotracer over the convexities. IMPRESSION: ?? 1. ?? Slight delay in migration of radiotracer over the convexities can be seen with cerebral atrophy. ??There is clear migration of radiotracer over the convexities at 48 and 72 hours. THIS IS AN ELECTRONICALLY VERIFIED FINAL REPORT 05/05/2022 9:21 AM - Electronically signed by ??Jesu Montiel M.D. D: ??05/05/2022 9:21 AM T: Report ID: [id number] Reading Location: ??[id number] Procedure Note Jesu Montiel MD - 05/05/2022 EXAM DESCRIPTION: NM CISTERNOGRAM RADIOPHARMACEUTICAL: 700 microcuries of indium 111 DTPA intrathecally REASON FOR STUDY: Hydrocephalus for 6 years. Cognitive decline forseveral years. TECHNIQUE: Images were obtained 6 , 24, 48, and 72 hours after theintrathecal administration of the above radiotracer on 05/01/2022. FINDINGS: Initial images show activity within the sylvian fissures. Images at 24hours show minimal migration over the convexities. No discrete reflux into the lateral ventricles. At 48 hours as well as at 72 hours, there is clear migration of radiotracer over the convexities. IMPRESSION: 1. Slight delay in migration of radiotracer over the convexities can beseen with cerebral atrophy. There is clear migration of radiotracer over the convexities at 48 and 72 hours. THIS IS AN ELECTRONICALLY VERIFIED FINAL REPORT 05/05/2022 9:21 AM - Electronically signed by Jesu Montiel M.D. LB T: Report ID: [id number] Reading Location: [id number] [facility] Keturah Bucio MD IMG NM PROCEDURES Final Result documented in this encounter Visit Diagnoses Not on filedocumented in this encounter Care Teams Manual Lathe Operator Relationship Specialty Start Date End Date James Gentile MD [address] [place] [id number] PCP - General Internal Medicine 03/01/22 01/17/24 documented as of this encounter
--- OUTSIDE RECORDS SUMMARY | 2024-02-12 03:53 | XMS_ITS | Encounter Summary ---
Author Organization [facility] Address [address] [place] [address] Phone Care Team Providers Care Sewing Machine Maintenance Mechanic Name Role Phone James Gentile MD Primary Care Provider + [phone] Encounter Details Date Type Department Care Team (Late st Contact Info) Description 12/06/2022 Telephone [facility] Gastroenterology [address] [place] [address] 12th [place] [address] [place] [address] Beba Briceño, JUNIE Social History [...] Telephone Encounter - Beba Briceño, JUNIE - 12/06/2022 10:27 AM CDT Attempted to reach the patient at contact number. Left a voicemail for the patient to return call to the clinic. ----- Message from Latrice Freedman NP sent at 12/04/2022 8:03 AM CDT ----- Alk phos is better but still elevated. Unclear if PBC. Recommend MRI/MRCP. Sent my chart message. documented in this encounter Plan of Treatment Not on file documented as of this encounter Visit Diagnoses Not on filedocumented in this encounter Care Teams Sewing Machine Maintenance Mechanic Relationship Specialty Start Date End Date James Gentile MD [address] [place] [phone] PCP - General Internal Medicine 03/01/22 01/17/24 documented as of this encounter
--- OUTSIDE RECORDS SUMMARY | 2024-02-12 03:53 | XMS_ITS | Encounter Summary ---
Author Organization [facility] Healthcare Address [address] [place] [address] Care Team Providers Care Warehouse Helper Name Role Phone James Gentile MD Primary Care Provider + [phone] Encounter Details Date Type Department Care Team (Latest Contact Info) Description 11/30/2022 1:56 PM CDT - 11/30/2022 11:59 PM CDT Hospital Encounter [address] [address] Primary biliary cirrhosis (HCC) Discharge Disposition: Discharge [...] tablet Take 1 tablet by mouth daily clobetasoL (TEMOVATE) 0.05 % [...] mouth daily 90 tablet 4 05/16/2022 4 LORazepam (ATIVAN) 0.5 mg tabletIndicatio ns:claustrophob ia Take 0.5mg orally x 1 20-30 minute prior to arrival for MRI. Can repeat 0.5mg orally x 1 after checking in for MRI if needed 2 tablet 01/02/2022 3 triamterene-hyd roCHLOROthiazid e 37.5-25 mg per tablet TAKE 1 TABLET DAILY 90 tablet 1 06/04/2022 3 ursodioL (GENOVEVA FORTE) 500 mg tablet TAKE 1 TABLET 3 TIMES A DAY 270 tablet 1 05/29/2022 3 documented as of this encounter Discharge Disposition Disposition Code Departure Means Destination Discharge to home or self care documented in this encounter Plan of Treatment Not on file documented as of this encounter Procedures Procedure Name Priority Date/Time Associated Diagnosis Comments VITAMIN A Routine 11/30/2022 5:36 PM CDT Primary biliary cirrhosis (HCC) documented in this encounter Results * Vitamin A (11/30/2022 5:36 PM CDT) Vitamin A 55.5 32.5 - 78.0 mcg/dL [facility] Comment: ADDITIONAL INFORMATION This test was developed and its performance characteristics determined by [facility] in a manner consistent with CLIA requirements. This test has not been cleared or approved by the U.S. Food and Drug Administration. Test Performed by: [facility] [address] [place] [address] Microwave Engineer: Shree Rhodes M.D. Ph.D.; CLIA# [id number] Blood 11/30/2022 5:36 PM CDT 11/30/2022 6:15 PM CDT Latrice Freedman CYCLE TOURING GUIDE LAB BLOOD ORDERABLES [facility] al Result [facility] Department [place] [address] documented in this encounter Visit Diagnoses Diagnosis Primary biliary cirrhosis (HCC) Biliary cirrhosis documented in this encounter Care Teams Warehouse Helper Relationship Specialty Start Date End Date James Gentile MD [address] [place] [address] PCP - General Internal Medicine 03/01/22 01/17/24 documented as of this encounter
--- OUTSIDE RECORDS SUMMARY | 2024-02-12 03:53 | XMS_ITS | Encounter Summary ---
Author Organization [facility] Address [address] [place] [address] Phone Care Team Providers Care High Pressure Firer Name Role Phone James Gentile MD Primary Care Provider + [phone] Encounter Details Date Type Department Care Team (Late st Contact Info) Description 08/22/2022 Documentation [facility] Gastroenterology [address] [facility] 12th [place] [address] Kimberly Jordan, RN Social History Tobacco Use Types Packs/Day [...] as of this encounter Progress Notes * Kimberly Jordan RN - 08/22/2022 10:28 AM CDT I left message on voicemail requesting call back to see if pt is ready to reschedule MRI/MRCP whichwas cancelled few months ago due to cost, etc. ADDENDUM 08/28/22 Left another message on voicemail requesting call back ADDENDUM 09/05/22 I have not heard back from pt. Letter mailed requesting call back to discuss. documented in this encounter Plan of Treatment Not on file documented as of this encounter Visit Diagnoses Not on filedocumented in this encounter Care Teams High Pressure Firer Relationship Specialty Start Date End Date James Gentile MD [address] [place] [phone] PCP - General Internal Medicine 03/01/22 01/17/24 documented as of this encounter
--- OUTSIDE RECORDS SUMMARY | 2024-02-12 03:53 | XMS_ITS | Encounter Summary ---
Author Organization [facility] Address [address] [place] [address] Care Team Providers Care Consumer Credit Counselor Name Role Phone James Gentile MD Primary Care Provider + [phone] Reason for Visit * Reason Onset Date Comments Test Results 05/05/2022 Encounter Details Date Type Department Care Team (Late st Contact Info) Description 05/05/2022 Telephone [facility] Neurology [address] [address] [place] [address] Case Bucio Si, MD [address] [place] [address] [address] [place] [address] Test Results Social History Tobacco Use Types Packs/Day [...] encounter Miscellaneous Notes * Telephone Encounter - Case Bucio Si, MD - 05/05/2022 12:00 PM CDT Called patient regarding test result. CSF studies are unremarkable (mildly elevated protein). Her CTH shows Mild prominence of the lateral and 3rd ventricles. Cisternogram didn't reveal any evidence of normal pressure hydrocephalus and flow pattern could be seen with cerebral atrophy. documented in this encounter Plan of Treatment Not on file documented as of this encounter Visit Diagnoses Not on filedocumented in this encounter Care Teams Consumer Credit Counselor Relationship Specialty Start Date End Date James Gentile MD [address] [place] [address] PCP - General Internal Medicine 03/01/22 01/17/24 documented as of this encounter
--- OUTSIDE RECORDS SUMMARY | 2024-02-12 03:53 | XMS_ITS | Encounter Summary ---
Author Organization [facility] Healthcare Address [address] [place] [address] Care Team Providers Care Sports Broadcasting Internship Name Role Phone James Gentile MD Primary Care Provider + [phone] Reason for Referral * Diagnostic Imaging (Routine) - Closed Specialty Diagnoses / Procedures Referred By Charisse schulz Referred To Contact Diagnoses History of hydrocephalus Procedures Fluoro Guided Lumbar Puncture for Cisternogram Case Bucio Si, MD [address] [place] [address] [address] [place] [address] Phone: tel: fax: [address] [phone] Referral ID Status Reason Start Date Expiration Date Visits Re quested Visits Authorized [id number] Closed 04/18/2022 05/18/2023 1 1 Reason for Visit * Diagnostic Imaging (Routine) - Closed Specialty Diagnoses / Procedures Referred By Charisse schulz Referred To Contact Diagnoses History of hydrocephalus Procedures Fluoro Guided Lumbar Puncture for Cisternogram Case Bucio Si, MD [address] [place] [address] [address] [place] [address] Phone: tel: fax: [address] [phone] Referral ID Status Reason Start Date Expiration Date Visits Re quested Visits Authorized [id number] Closed 04/18/2022 05/18/2023 1 1 Encounter Details Date Type Department Care Team (Latest Contact Info) Description 05/01/2022 7:36 AM CDT - 05/01/2022 7:52 AM CDT Hospital Encounter [facility] Diagnostic Imaging [address] [place] [address] History of hydrocephalus Discharge Disposition: Discharge to a short term hospital for IP Social History Tobacco Use Types Packs/Day Years [...] Disposition Code Departure Means Destination Discharge to a short term hospital for IP documented in this encounter Nursing Notes * Meme Clifford RT - 05/01/2022 7:52 AM CDT Adding end proc time due to DNB error on Workqueue, Unposted log- vb documented in this encounter Plan of Treatment Pending Results Name Type Priority Associated Diagnoses Date /Time Manual Cell Count, CSF Lab Routine 10:20 AM CDT Scheduled Orders Name Type Priority Associated Diagnoses Orde r Schedule Manual Cell Count, CSF Lab Routine On ce for 1 Occurrences starting 05/01/2022 until 05/01/2022 documented as of this encounter Procedures Procedure Name Priority Date/Time Associated Diagnosis Comments FL FLUORO GUIDED LUMBAR PUNCTURE Schedule Routine, Read Routine (OP Routine) 05/01/2022 11:13 AM CDT History of hydrocephalus VDRL, CSF Routine 05/01/2022 10:37 AM CDT History of hydrocephalus MANUAL CELL COUNT, CSF Routine 05/01/2022 10:20 AM CDT History of hydrocephalus CSF PROTEIN Routine 05/01/2022 10:20 AM CDT History of hydrocephalus GLUCOSE, CSF Routine 05/01/2022 10:20 AM CDT History of hydrocephalus POCT GLUCOSE DEVICE Routine 05/01/2022 8:29 AM CDT documented in this encounter Results * Fluoro Guided Lumbar Puncture for Cisternogram (05/01/2022 11:13 AM CDT) Anatomical Region Laterality Modality Spine Right Computed Radiogr aphy, Computed Radiography 05/01/2022 1:13 PM CDT Narrative 05/01/2022 1:15 PM CDT EXAM DESCRIPTION: FL FLUORO GUIDED LUMBAR PUNCTURE REASON FOR STUDY: hydrocephalus ?? COMPARISON: None available RADIATION DOSE: Dose: ??1.9 ?? mGy Reference Air Kerma (Ka,r) TECHNIQUE: Fluoroscopy guided diagnostic lumbar puncture for subsequent cisternogram. PROCEDURE/FINDINGS: Informed written consent was obtained from the patient or patient counter sales representative after risks and benefits were discussed. ??After fluoroscopic localization, sterile skin prep was performed with iodinated solution. ??Local Anesthesia performed with 1% Lidocaine. Using fluoroscopic guidance, a 22-gauge spinal needle was advanced to the thecal sac at the L4 level. ??A total of 7 mL of clear CSF was collected in 3 tubes and sent to pathology for evaluation. ??The stylet was replaced and subsequently the needle was removed and a bandage applied. ??Needle placement was documented with fluoroscopic images. ?? No immediate neurologic changes or complications. Discharge instructions were provided. Estimated blood loss: ??<5 ??mL IMPRESSION: Successful fluoroscopy guided lumbar puncture for subsequent cisternogram. THIS IS AN ELECTRONICALLY VERIFIED FINAL REPORT 05/01/2022 1:15 PM - Electronically signed by ??Jez Dolan M.D. AG D: ??05/01/2022 1:15 PM T: Report ID: [id number] Reading Location: ??[id number] Procedure Note Jez Dolan MD - 05/01/2022 EXAM DESCRIPTION: FL FLUORO GUIDED LUMBAR PUNCTURE REASON FOR STUDY: hydrocephalus COMPARISON: None available RADIATION DOSE: Dose: 1.9 mGy Reference Air Kerma (Ka,r) TECHNIQUE: Fluoroscopy guided diagnostic lumbar puncture for subsequent cisternogram. PROCEDURE/FINDINGS: Informed written consent was obtained from the patient or patient counter sales representative after risks and benefits were discussed. Afterfluoroscopic localization, sterile skin prep was performed with iodinated solution.Local Anesthesia performed with 1% Lidocaine. Using fluoroscopic guidance, a 22-gauge spinal needle was advanced to the thecal sac at the L4 level. A total of 7 mL of clear CSF was collected in 3 tubes and sent to pathologyfor evaluation. The stylet was replaced and subsequently the needle wasremoved and a bandage applied. Needle placement was documented with fluoroscopic images. No immediate neurologic changes or complications. Discharge instructions were provided. Estimated blood loss: <5 mL IMPRESSION: Successful fluoroscopy guided lumbar puncture for subsequent cisternogram. THIS IS AN ELECTRONICALLY VERIFIED FINAL REPORT 05/01/2022 1:15 PM - Electronically signed by Jez Dolan M.D. AG T: Report ID: [id number] Reading Location: [id number] Case Bucio MD IMG FLUOROSCOPY PROCEDURES Final Result * VDRL, CSF CSF (05/01/2022 10:37 AM CDT) Pathologist [facility] VDRL CSF Negative Negative ZENOBIA SALINAS Comment: Test Performed by: [facility] [address] [place] [address] Supervisor Color Making: Shree Rhodes M.D. Ph.D.; CLIA# [id number] CSF 05/01/2022 10:3 7 AM CDT 05/01/2022 10:37 AM CDT Case Bucio MD LAB MICROBIOLOGY - GENERAL ORDER CHRIS Final Result ZENOBIA SALINAS [address] [facility] [place] [address] * (ABNORMAL) Manual Cell Count, CSF (05/01/2022 10:20 AM CDT) Tube Number, CSF Tube 3 ZENOBIA SALINAS Color, CSF Colorless Colorless ZENOBIA SALINAS Clarity, CSF Clear Clear [facility] Xanthochromia , CSF Absent Absent [facility] Nucleated cells, CSF 2 0 - 5 /cumm [facility] RBC, CSF 10(H) 0 - 0 /cumm [facility] CSF 05/01/2022 10:2 0 AM CDT 05/01/2022 10:36 AM CDT James Gentile MD LAB BODY FLUIDS AND STOOLS O RDERABLES Final Result Performing Organization Address [facility] de Phone Number [address] [place] [address] * (ABNORMAL) Protein, total, CSF (05/01/2022 10:20 AM CDT) Protein, CSF 49(H) 5 - 45 mg/dL [facility] CSF 05/01/2022 10:2 0 AM CDT 05/01/2022 10:36 AM CDT Case Bucio MD LAB BODY FLUIDS AND STOOLS ORDER CHRIS Final Result Performing Organization Address [facility] de Phone Number [address] [address] * Glucose, CSF (05/01/2022 10:20 AM CDT) Glucose, CSF 79 mg/dL [facility] Comment: Reference Interval Information: CSF Glucose should be 60-66% of the most current plasma glucose concentration (milligrams/deciliter) CLIN. CHEM. 41/3, 343-360 (1994), Clinical Utility of Biochemical Analysis of Cerebrospinal Fluid, Jared Zamorano and Ramos Landeros. Current interpretive data was last revised on 2018. CSF 05/01/2022 10:2 0 AM CDT 05/01/2022 10:36 AM CDT Case Bucio MD LAB BODY FLUIDS AND STOOLS ORDER CHRIS Final Result Performing Organization Address [facility] Co de Phone Number ZENOBIA [address] [facility] [place] [address] * POCT glucose (05/01/2022 8:29 AM CDT) Glucose, POC 144 70 - 199 mg/dL ZENOBIA Glucose comment 1 Use This Result [facility] Blood 05/01/2022 8:29 AM CDT 05/01/2022 8:29 AM CDT us James Gentile MD LAB POCT ORDERABLES - DEVICE Final Result Performing Organization Address [facility] Co de Phone Number ZENOBIA [facility] [place] [address] documented in this encounter Visit Diagnoses Diagnosis History of hydrocephalus Other personal history of disorders of nervous system and sense organs documented in this encounter Administered Medications Inactive Administered Medications - up to 3 most recent administrations Medication Order MAR Action Action Date Dose Rate Site lidocaine (XYLOCAINE) 10 mg/mL (1 %) injection 30 mg 30 mg (3 mL), subcutaneous, Once, On 05/01/22 at 1117, For 1 dose, Indications: Administration of Local AnesthesiaIndications:Admini stration of Local Anesthesia Given 05/01/2022 11:17 AM CDT 3 mL Other (Comment) documented in this encounter Orders Medications Ordered That Vincent ht Not Have Been Administered Count Last Ordered Date First Ordered Date lidocaine (XYLOCAINE) 10 mg/ mL (1 %) injection 30 mg 1 05/01/2022 documented in this encounter Care Teams Sports Broadcasting Internship Relationship Specialty Start Date End Date James Gentile MD [address] [place] [address] [id number] PCP - General Internal Medicine 03/01/22 01/17/24 documented as of this encounter
--- OUTSIDE RECORDS SUMMARY | 2024-02-12 03:53 | XMS_ITS | Encounter Summary ---
Author Organization [facility] Address [address] [place] [address] Phone Care Team Providers Care Dimension Specification Inspector Name Role Phone James Gentile MD Primary Care Provider + [phone] Encounter Details Date Type Department Care Team (Late st Contact Info) Description 04/20/2022 Documentation [facility] Gastroenterology [address] [facility] 12th [place] [address] [place] [address] Kimberly Jordan, RN Social History Tobacco Use [...] Progress Notes * Kimberly Jordan RN - 04/20/2022 3:37 PM CST Called pt to follow up to see if ready to reschedule MRI/MRCP that she cancelled last January due to costs, deductibles, etc. She states that she is about to schedule spinal tap and other testing and not ready to reschedule but likely will meet deductible soon and then would be ready to reschedule. She asked to be called back in another 2 months. Delayed task sent to self to f/u RAL INTERNIST AND PHYSICIAN LEADER documented in this encounter Plan of Treatment Not on file documented as of this encounter Visit Diagnoses Not on filedocumented in this encounter Care Teams Dimension Specification Inspector Relationship Specialty Start Date End Date James Gentile MD [address] [place] [address] PCP - General Internal Medicine 03/01/22 01/17/24 documented as of this encounter
--- OUTSIDE RECORDS SUMMARY | 2024-02-12 03:53 | XMS_ITS | Encounter Summary ---
Author Organization [facility] Address [address] [address] Care Team Providers Care Bundle Tier Name Role Phone James Gentile MD Primary Care Provider + [phone] Reason for Visit * Reason Onset Date Comments Medical Question/Miscellaneous 09/28/2022 Encounter Details Date Type Department Care Team ([facility] st Contact Info) Description 09/28/2022 Telephone [facility] Primary Care [address] [address] James Gentile MD [address] [address] Medical Question/Miscellaneous Social History Tobacco [...] encounter Miscellaneous Notes * Telephone Encounter - Manuela Martinez MA - 09/28/2022 3:52 PM CDT Call Back Caller???s Concern: Patient called in stating she was seen yesterday and was told by Nannette to call intoday and ask to speak to her regarding insurance. CS warm transferred to the backline. Caller???s Call back #: [phone] Does message need to be routed? No documented in this encounter Plan of Treatment Not on file documented as of this encounter Visit Diagnoses Not on filedocumented in this encounter Care Teams Bundle Tier Relationship Specialty Start Date End Date James Gentile MD [address] [place] [id number] PCP - General Internal Medicine 03/01/22 01/17/24 documented as of this encounter
--- OUTSIDE RECORDS SUMMARY | 2024-02-12 03:53 | XMS_ITS | Encounter Summary ---
Author Organization [facility] Healthcare Address [address] [place] [address] Care Team Providers Care Catering And Events Manager Name Role Phone James Gentile MD Primary Care Provider + [phone] Reason for Referral * Diagnostic Imaging (Routine) - Closed Specialty Diagnoses / Procedures Referred By Charisse schulz Referred To Contact Diagnoses History of hydrocephalus Procedures NM Cisternogram Case Bucio Si, MD [address] [place] [address] [address] [place] [address] Phone: tel: fax: [address] [phone] Referral ID Status Reason Start Date Expiration Date Visits Re quested Visits Authorized [id number] Closed 04/18/2022 05/18/2023 5 5 Reason for Visit * Diagnostic Imaging (Routine) - Closed Specialty Diagnoses / Procedures Referred By Charisse schulz Referred To Contact Diagnoses History of hydrocephalus Procedures NM Cisternogram Case Bucio Si, MD [address] [place] [address] [address] [place] [address] Phone: tel: fax: [address] [phone] Referral ID Status Reason Start Date Expiration Date Visits Re quested Visits Authorized [id number] Closed 04/18/2022 05/18/2023 5 5 Encounter Details Date Type Department Care Team (Latest Contact Info) Description 05/01/2022 7:53 AM CDT - 05/01/2022 7:59 AM CDT Hospital Encounter [facility] Nuclear Medicine [address] [place], [place] [id number] History of hydrocephalus Discharge Disposition: Discharge to [...] 9:21 AM - Electronically signed by ??Jesu MICHAEL D: ??05/05/2022 9:21 AM T: Report ID: [id number] Reading Location: ??[id number] Procedure Note Jesu Montiel MD - 05/05/2022 [...] 9:21 AM - Electronically signed by Jesu MICHAEL T: Report ID: [id number] Reading Location: [place] [address] [facility] Keturah Bucio MD IMG NM PROCEDURES Final Result documented in this encounter Visit Diagnoses Diagnosis History of hydrocephalus Other personal history of disorders of nervous system and sense organs documented in this encounter Administered Medications Inactive Administered Medications - up to 3 most recent administrations Medication Order MAR Action Action Date Dose Rate Site in-111 pentetate (dtpa) injection 700 microcurie 700 microcurie, intrathecal, Once in imaging, radiopharmaceutical, Starting on 05/01/22 at 1228, For 1 dose, Indications: Diagnostic RadiographyIndications:Diag nostic Radiography Given 05/01/2022 12:29 PM CDT 700 microcuries documented in this encounter Orders Medications Ordered That Vincent ht Not Have Been Administered Count Last Ordered Date First Ordered Date in-111 pentetate (dtpa) inje ction 700 microcurie 1 05/01/2022 Discharge Count Last Ordered Date First Orde red Date DISCHARGE PATIENT 1 05/01/2022 documented in this encounter Care Teams Catering And Events Manager Relationship Specialty Start Date End Date James Gentile MD [address] [place] [address] PCP - General Internal Medicine 03/01/22 01/17/24 documented as of this encounter
--- OUTSIDE RECORDS SUMMARY | 2024-02-12 03:53 | XMS_ITS | Encounter Summary ---
Author Organization [facility] Healthcare Address [address] [place] [address] Care Team Providers Care Quality Systems Specialist Name Role Phone James Gentile MD Primary Care Provider + [phone] Reason for Visit * Diagnostic Imaging (Routine) - Closed Specialty Diagnoses / Procedures Referred By Contac t Referred To Contact Diagnoses History of hydrocephalus Procedures NM Cisternogram Case Bucio Si, MD [address] [place] [address] Phone: tel: fax: [address] [phone] Referral ID Status Reason Start Date Expiration Date Visits Re quested Visits Authorized [id number] Closed 04/18/2022 05/18/2023 5 5 Encounter Details Date Type Department Care Team (Latest Contact Info) Description 05/04/2022 12:24 PM CDT - 05/04/2022 11:59 PM CDT Hospital Encounter [facility] Nuclear Medicine [address] [place] [id number] Discharge Disposition: Discharge to home or self [...] D: ??05/05/2022 9:21 AM T: Report ID: [id number] Reading Location: ??[id number] Procedure Note Jesu Montiel MD - 05/05/2022 [...] Jesu Montiel M.D. LB T: Report ID: [id number] Reading Location: [id number] [facility] Keturah Bucio MD IMG NM PROCEDURES Final Result documented in this encounter Visit Diagnoses Not on filedocumented in this encounter Care Teams Quality Systems Specialist Relationship Specialty Start Date End Date James Gentile MD [address] [place] [address] PCP - General Internal Medicine 03/01/22 01/17/24 documented as of this encounter
--- OUTSIDE RECORDS SUMMARY | 2024-02-12 03:53 | XMS_ITS | Encounter Summary ---
Author Organization [facility] Healthcare Address [address] [place] [address] Care Team Providers Care School Bus Mechanic Name Role Phone James Gentile MD Primary Care Provider + [phone] Encounter Details Date Type Department Care Team (Late st Contact Info) Description 09/27/2022 2:30 PM CDT Lab [facility] Building [address] [address] Type 2 diabetes mellitus without complication, without long-term current use of insulin (CMS/HCC) (HCC); Bruit of left carotid artery; Thyroid nodule Social History Tobacco Use Types Packs/Day Years [...] Miscellaneous Notes * Result Encounter Note - James Gentile MD - 10/10/2022 8:41 PM CDT Inform patient of results documented in this encounter Plan of Treatment Not on file documented as of this encounter Procedures Procedure Name Priority Date/Time Associated Diagnosis Comments THYROID FUNCTION CASCADE Routine 09/27/2022 1:55 PM CDT Type 2 diabetes mellitus without complication, without long-term current use of insulin (CMS/HCC) (HCC) Bruit of left carotid artery Thyroid nodule HEMOGLOBIN A1C Routine 09/27/2022 1:55 PM CDT Type 2 diabetes mellitus without complication, without long-term current use of insulin (CMS/HCC) (HCC) Bruit of left carotid artery Thyroid nodule documented in this encounter Results * (ABNORMAL) Hemoglobin A1c (09/27/2022 1:55 PM CDT) Hgb A1C 7.0(H) 4.0 - 5.6 % ZENOBIA Comment:Testing performed by : [address] [address] Estimated Average Glucose 154 mg/dL ZENOBIA Comment: The ADA recommends reporting an estimated Average Glucose (eAG) with all Hemoglobin A1c results using the equation derived from a study of 507 normal and diabetic adults. ??Minority populations were underrepresented and children were not included. ?? (Diabetes Care 31:5292-4380, 2008). ??The eAG is not equivalent to a fasting glucose. Testing performed by: [address] [address] Blood 09/27/2022 1:55 PM CDT 09/27/2022 5:06 PM CDT us James Gentile MD LAB BLOOD ORDERABLES Final R esult ZENOBIA [address] [facility] [place] [address] * TSH reflex to free T4 (09/27/2022 1:55 PM CDT) TSH 3.98 0.30 - 4.20 mcIUnit/mL ZENOBIA SALINAS Comment:Testing performed by : [facility], [address] [place] [address]., [id number] Blood 09/27/2022 1:55 PM CDT 09/27/2022 5:06 PM CDT us James Gentile MD LAB BLOOD ORDERABLES Final R esult ZENOBIA SALINAS [address] [facility] [place] [address] documented in this encounter Visit Diagnoses Diagnosis Type 2 diabetes mellitus without complication, without long-term current use of insulin (CMS/HCC) (HCC) Bruit of left carotid artery Thyroid nodule Nontoxic uninodular goiter documented in this encounter Care Teams School Bus Mechanic Relationship Specialty Start Date End Date James Gentile MD [address] [place] [address] PCP - General Internal Medicine 03/01/22 01/17/24 documented as of this encounter
--- OUTSIDE RECORDS SUMMARY | 2024-02-12 03:53 | XMS_ITS | Encounter Summary ---
Author Organization [facility] Address [address] [place] [address] Phone Care Team Providers Care Uniformer Name Role Phone James Gentile MD Primary Care Provider + [phone] Encounter Details Date Type Department Care Team (Late st Contact Info) Description 12/08/2022 Telephone [facility] Gastroenterology [address] [place] [address] 12th [place] [address] [place] [address] Beba Briceño, JUNIE Social History [...] Telephone Encounter - Beba Briceño, JUNIE - 12/08/2022 11:48 AM CDT Spoke with the pt. And scheduled her for her US on 01/18 at 8:30 AM at [facility]. Pt. Made aware that she is to have nothing by mouth 6 hours prior to the test. Pt. Also made aware she has a lab order jayne completed at [facility]. Pt. Verbalized understanding. ----- Message from Latrice Freedman NP sent at 12/08/2022 10:19 AM CDT ----- Reviewed with Dr. Carreno: Let's repeat US since there is not a recent one done. If no ductal abnormalities are seen, can stop with imaging. GGT is normal. Let's also send for alk phos fractionation that is done by [facility] For now continue with the Ursodiol and monitor the labs (e.g. in 4 months) Sent my chart message. documented in this encounter Plan of Treatment Not on file documented as of this encounter Visit Diagnoses Not on filedocumented in this encounter Care Teams Uniformer Relationship Specialty Start Date End Date James Gentile MD [address] [place] [address] PCP - General Internal Medicine 03/01/22 01/17/24 documented as of this encounter
--- OUTSIDE RECORDS SUMMARY | 2024-02-12 03:53 | XMS_ITS | Encounter Summary ---
Author Organization [facility] Address [address] [facility] [address] [place] [address] Care Team Providers Care Security Rep Name Role Phone James Gentile MD Primary Care Provider + [phone] Reason for Visit * Reason Onset Date Comments Call Back 09/28/2022 Encounter Details Date Type Department Care Team ([facility] Contact Info) Description 09/28/2022 Telephone [facility] Primary Care [address] [address] James Gentile MD [facility] [address] Call Back Social History Tobacco Use Types Packs/Day Years [...] encounter Miscellaneous Notes * Telephone Encounter - Maria Ines Alas - 09/29/2022 11:30 AM CDT Call Back Caller???s Concern: Pt called back and would like to speak to Nannette Warm transferred to backline Caller???s Call back #: [phone] Does message need to be routed? No * Telephone Encounter - Guillermina Houston - 09/28/2022 4:06 PM CDT Pt called regarding her insurance we informed the pt at her visit yesterday 09-27-22 that her insurance was coming up not eligible for coverage at the time of visit , and we informed the pt that she will need to call the insurance to see if there has been any changes. Pt stated that there have been some issues lately with insurance and it canceling people that are active. She stated that her HR will call the insurance and they should have it worked out and to try running it again in a couple of days. documented in this encounter Plan of Treatment Not on file documented as of this encounter Visit Diagnoses Not on filedocumented in this encounter Care Teams Security Rep Relationship Specialty Start Date End Date James Gentile MD [address] [place] [address] PCP - General Internal Medicine 03/01/22 01/17/24 documented as of this encounter
--- OUTSIDE RECORDS SUMMARY | 2024-02-12 03:53 | XMS_ITS | Encounter Summary ---
Author Organization [facility] Healthcare Address [address] [place] [address] Care Team Providers Care Leather Scrubber Name Role Phone James Gentile MD Primary Care Provider + [phone] Reason for Visit * Diagnostic Imaging (Routine) - Closed Specialty Diagnoses / Procedures Referred By Contac t Referred To Contact Diagnoses History of hydrocephalus Procedures NM Cisternogram Case Bucio Si, MD [address] [place] [id number] Phone: tel: fax: [address] [phone] Referral ID Status Reason Start Date Expiration Date Visits Re quested Visits Authorized [id number] Closed 04/18/2022 05/18/2023 5 5 Encounter Details Date Type Department Care Team (Latest Contact Info) Description 05/02/2022 11:45 AM CDT - 05/02/2022 11:59 PM CDT Hospital Encounter [facility] Nuclear Medicine [address] [place] [phone] Discharge Disposition: Discharge to home or self [...] D: ??05/05/2022 9:21 AM T: Report ID: [id number] Reading Location: ??[id number] Procedure Note Jesu Montiel MD - 05/05/2022 [...] Jesu Montiel M.D. LB T: Report ID: [id number] Reading Location: [id number] [facility] Keturah Bucio MD IMG NM PROCEDURES Final Result documented in this encounter Visit Diagnoses Not on filedocumented in this encounter Care Teams Leather Scrubber Relationship Specialty Start Date End Date James Gentile MD [address] [place] [id number] PCP - General Internal Medicine 03/01/22 01/17/24 documented as of this encounter
--- OUTSIDE RECORDS SUMMARY | 2024-02-12 03:53 | XMS_ITS | Encounter Summary ---
Author Organization [facility] Address [address] [place] [address] Phone Care Team Providers Care Industrial Training Specialist Name Role Phone James Gentile MD Primary Care Provider + [phone] Encounter Details Date Type Department Care Team (Late st Contact Info) Description 06/14/2022 Documentation [facility] Gastroenterology [address] [facility] 12th [place] [address] [place] [address] Kimberly Jordan, RN Social History Tobacco Use [...] Progress Notes * Kimberly Jordan RN - 06/14/2022 11:51 AM CDT Called pt to follow up to see if ready to reschedule MRI/MRCP that she cancelled last January due to costs, deductibles, etc. I had spoke to her 2 months ago and she had said that she likely would be hitting deductible soon and then would be ready to reschedule. She states she has met her deductible but not of pocket yet. She is needing more testing for other doctors (carotid and thyroid US) and is not ready to schedule MRI/MRCP yet. She asked if I would call back in another 2 months documented in this encounter Plan of Treatment Not on file documented as of this encounter Visit Diagnoses Not on filedocumented in this encounter Care Teams Industrial Training Specialist Relationship Specialty Start Date End Date James Gentile MD [address] [place] [id number] PCP - General Internal Medicine 03/01/22 01/17/24 documented as of this encounter
--- OUTSIDE RECORDS SUMMARY | 2024-02-12 03:53 | XMS_ITS | Encounter Summary ---
Author Organization [facility] Address [address] [place] [address] Phone Care Team Providers Care Tung Nut Grower Name Role Phone James Gentile MD Primary Care Provider + [phone] Encounter Details Date Type Department Care Team (Late st Contact Info) Description 12/29/2022 Telephone [facility] Gastroenterology [address] [place] [address] 12th [place] [address] [place] [address] Beba Briceño, JUNIE Social History [...] Telephone Encounter - Beba Briceño RN - 12/29/2022 10:31 AM BRIM CUTTER Spoke with the pt. And informed her of the below information. Pt. Verbalized understanding. ----- Message from Latrice Freedman NP sent at 12/29/2022 7:10 AM BRIM CUTTER ----- Patient with PBC. Alk phos stable, predominantly liver. Continue with nelly. Await US results. CUTTER CUTTER documented in this encounter Plan of Treatment Not on file documented as of this encounter Visit Diagnoses Not on filedocumented in this encounter Care Teams Tung Nut Grower Relationship Specialty Start Date End Date James Gentile MD [address] [place] [id number] PCP - General Internal Medicine 03/01/22 01/17/24 documented as of this encounter
--- OUTSIDE RECORDS SUMMARY | 2024-02-12 03:53 | XMS_ITS | Encounter Summary ---
Author Organization [facility] Address [address] [address] Care Team Providers Care Library Manager Name Role Phone James Gentile MD Primary Care Provider + [phone] Reason for Visit * Reason Comments Follow-up F/u on recent labs Encounter Details Date Type Department Care Team (Latest Contact Info) Description 05/16/2022 1:30 PM CDT Office Visit [facility] Primary Care [address] [place] [phone] James Gentile MD [address] [place] [phone] Type 2 diabetes mellitus without complication, without long-term current use of insulin (CMS/HCC) (HCC) (Primary Dx); Bruit of left carotid artery; Thyroid nodule; Essential (primary) hypertension; Hyperlipidemia, mixed; Acquired hypothyroidism Social History Tobacco Use Types Packs/Day Years [...] Sign Reading Time Taken Comments Blood Pressure 120/76 05/16/2022 1:31 PM CDT Pulse 70 05/16/2022 1:31 PM CDT Temperature - - Respiratory Rate 16 05/16/2022 1:31 PM CDT Oxygen Saturation 97% 05/16/2022 1:31 PM CDT Inhaled Oxygen Concentration - - Weight 88.9 kg (196 lb) 05/16/2022 1:31 PM CDT Height 162.6 cm (5' 4 ) 05/16/2022 1:31 PM CDT Body Mass Index 33.64 05/16/2022 1:31 PM CDT documented in this encounter Patient Instructions * Patient Instructions* James Gentile MD - 05/16/2022 1:30 PM CDT BLOOD SUGAR TRACKER/blood pressure 1. Get US two 2.document sugars 3.change thyroid 125 4.blood before next visit Name: Daily Diabetes Record Date: Waking Up Breakfast When do you normally eat breakfast? From ___am to ____am Difference between blood sugar before and after meal Lunch When do you normally eat lunch? From ____am/pm to am/pm Difference between blood sugar before and after meal Dinner When do you normally eat dinner? From ____am/pm to am/pm Difference between blood sugar before and after meal Bedtime When do you normally go to bed? From ____am/pm to am/pm Night/ring stamper 2-3am Notes Before 2hrs after Before 2 hrs after Before 2 hrs after Time x3 x4 x x5 x1 x2 Blood Sugar x x x x x Blood pressure GramsCarb/ What you ate that day or meal Phys. Activity That day with what time Medication Name and Time taken (include oral blood pressure and blood sugar medication and any insulin) Meds Before Breakfast 1. 2.. 3.. 4.. 5.. Meds taken with Breakfast 1. 2.. 3.. 4.. 5.. Meds taken with Lunch 1. 2.. 3.. 4.. 5.. Meds taken with dinner 1. 2.. 3.. 4.. 5.. Bedtime Medication 1. 2.. 3.. 4.. 5.. BLOOD SUGAR TRACKER/blood pressure Name: Daily Diabetes Record Date: Waking Up Breakfast When do you normally eat breakfast? From ___am to ____am Difference between blood sugar before and after meal Lunch When do you normally eat lunch? From ____am/pm to am/pm Difference between blood sugar before and after meal Dinner When do you normally eat dinner? From ____am/pm to am/pm Difference between blood sugar before and after meal Bedtime When do you normally go to bed? From ____am/pm to am/pm Night/ring stamper 2-3am Notes Before 2hrs after Before 2 hrs after Before 2 hrs after Time Blood Sugar Blood pressure GramsCarb/ What you ate that day or meal Phys. Activity That day with what time Medication Name and Time taken (include oral blood pressure and blood sugar medication and any insulin) Meds Before Breakfast 1. 2.. 3.. 4.. 5.. Meds taken with Breakfast 1. 2.. 3.. 4.. 5.. Meds taken with Lunch 1. 2.. 3.. 4.. 5.. Meds taken with dinner 1. 2.. 3.. 4.. 5.. Bedtime Medication 1. 2.. 3.. 4.. 5.. BLOOD SUGAR TRACKER/blood pressure Name: Daily Diabetes Record Date: Waking Up Breakfast When do you normally eat breakfast? From ___am to ____am Difference between blood sugar before and after meal Lunch When do you normally eat lunch? From ____am/pm to am/pm Difference between blood sugar before and after meal Dinner When do you normally eat dinner? From ____am/pm to am/pm Difference between blood sugar before and after meal Bedtime When do you normally go to bed? From ____am/pm to am/pm Night/ring stamper 2-3am Notes Before 2hrs after Before 2 hrs after Before 2 hrs after Time Blood Sugar Blood pressure GramsCarb/ What you ate that day or meal Phys. Activity That day with what time Medication Name and Time taken (include oral blood pressure and blood sugar medication and any insulin) Meds Before Breakfast 1. 2.. 3.. 4.. 5.. Meds taken with Breakfast 1. 2.. 3.. 4.. 5.. Meds taken with Lunch 1. 2.. 3.. 4.. 5.. Meds taken with dinner 1. 2.. 3.. 4.. 5.. Bedtime Medication 1. 2.. 3.. 4.. 5.. BLOOD SUGAR TRACKER/blood pressure Name: Daily Diabetes Record Date: Waking Up Breakfast When do you normally eat breakfast? From ___am to ____am Difference between blood sugar before and after meal Lunch When do you normally eat lunch? From ____am/pm to am/pm Difference between blood sugar before and after meal Dinner When do you normally eat dinner? From ____am/pm to am/pm Difference between blood sugar before and after meal Bedtime When do you normally go to bed? From ____am/pm to am/pm Night/ring stamper 2-3am Notes Before 2hrs after Before 2 hrs after Before 2 hrs after Time Blood Sugar Blood pressure GramsCarb/ What you ate that day or meal Phys. Activity That day with what time Medication Name and Time taken (include oral blood pressure and blood sugar medication and any insulin) Meds Before Breakfast 1. 2.. 3.. 4.. 5.. Meds taken with Breakfast 1. 2.. 3.. 4.. 5.. Meds taken with Lunch 1. 2.. 3.. 4.. 5.. Meds taken with dinner 1. 2.. 3.. 4.. 5.. Bedtime Medication 1. 2.. 3.. 4.. 5.. Name: Daily Diabetes Record Date: Dinner Bedtime Or midnight Hourly Overnight readings (optional) Waking Up Next morning-FBS Before 2hrs after Difference (goal is to be within 80-100pt) Here we are checking for simogyi effect (lowest reading before morning surge around 4-5am) Time x x x 1am 2am 3am 4am 5am 6am 7am x Blood Sugar x x x x Grams Carb/ What you ate Phys. Activity Name: Daily Diabetes Record Date: Dinner Bedtime Or midnight Hourly Overnight readings (optional) Waking Up Next morning-FBS Before 2hrs after Difference (goal is to be within 80-100pt) Here we are checking for simogyi effect (lowest reading before morning surge around 4-5am) Time x x x 1am 2am 3am 4am 5am 6am 7am x Blood Sugar x x x x Grams Carb/ What you ate Phys. Activity Name: Daily Diabetes Record Date: Dinner Bedtime Or midnight Hourly Overnight readings (optional) Waking Up Next morning-FBS Before 2hrs after Difference (goal is to be within 80-100pt) Here we are checking for simogyi effect (lowest reading before morning surge around 4-5am) Time x x x 1am 2am 3am 4am 5am 6am 7am x Blood Sugar x x x x Grams Carb/ What you ate Phys. Activity Name: Daily Diabetes Record Date: Dinner Bedtime Or midnight Hourly Overnight readings (optional) Waking Up Next morning-FBS Before 2hrs after Difference (goal is to be within 80-100pt) Here we are checking for simogyi effect (lowest reading before morning surge around 4-5am) Time x x x 1am 2am 3am 4am 5am 6am 7am x Blood Sugar x x x x Grams Carb/ What you ate Phys. Activity Name: Daily Diabetes Record Date: Dinner Bedtime Or midnight Hourly Overnight readings (optional) Waking Up Next morning-FBS Before 2hrs after Difference (goal is to be within 80-100pt) Here we are checking for simogyi effect (lowest reading before morning surge around 4-5am) Time x x x 1am 2am 3am 4am 5am 6am 7am x Blood Sugar x x x x Grams Carb/ What you ate Phys. Activity documented in this encounter Ordered Prescriptions Prescription Sig Dispense Quantity Refills Last Filled Start Date End Date levothyroxine (SYNTHROID) 125 mcg tablet Take 1 tablet (125 mcg total) by mouth daily 90 tablet 4 05/16/2022 04/11/2023 documented in this encounter Progress Notes * James Gentile MD - 05/16/2022 1:30 PM CDT Images from the original note were not included. Todays Encounter Date: 05/16/2022 Last visit: 03/01/2022 All Appts with PCP recent/future) Next/future visit with Care Team Recent Visits Date Type Provider Dept 05/16/22 Office Visit [facility] 03/01/22 Office Visit James Gentile MD [facility] Showing recent visits within past 180 days and meeting all other requirements Future Appointments Date Type Provider Dept 07/18/22 Appointment James Gentile MD [facility] Showing future appointments within next 180 days and meeting all other requirements Future Appointments Date Time Provider Department Center 07/18/2022 1:30 PM James Gentile MD [facility] 07/27/2022 3:00 PM Case Bucio Si, MD [facility] 11/30/2022 1:40 PM Latrice Freedman NP [facility] Patient ID: Kimberly Isabel is a 62 y.o. female. Chief Complaint. Chief Complaint Patient presents with Follow-up F/u on recent labs Patient Care Team: James Gentile MD as PCP - General (Internal Medicine) HPI/ROS. Patient is a 62 y.o. 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 Bloated. Went away. 05/04/22 Dm- FBS 120-140 03/01/2022 Review of Systems: See HPIAdditionally, No Nausea,Vomiting,Fever, Chills,CP,SOB Past Social,Medical,family Hx: Past Medical History: Diagnosis [...] Not Currently Alcohol Use: Not At Risk Frequency of Alcohol Consumption: Monthly or less Average Number of Drinks: Patient does not drink Frequency of Binge Drinking: Never Family History Problem Relation Age of Onset Cancer Mother Other (Cerebrial Hemmorage) Father Breana's disease Brother Current Medications and Allergies: Allergies Allergen Reactions Milnacipran Unknown Trazodone Unknown Vilazodone Unknown Outpatient Encounter Medications as of 05/16/2022 Medication Sig Dispense Refill buPROPion XL (WELLBUTRIN XL) 150 mg 24 hr tablet Take 1 tablet (150 mg total) by mouth every morning 90 tablet 3 cetirizine (ZyrTEC) 10 mg tablet Take 1 [...] total) by mouth daily 90 tablet 4 LORazepam (ATIVAN) 0.5 mg tablet Take 0.5mg orally x 1 20-30 minute prior to arrival for MRI. Can repeat 0.5mg orally x 1 after checking in for MRI if needed 2 tablet 0 multivitamin tablet Take 1 tablet by mouth daily triamterene-hydroCHLOROthiazide 37.5-25 mg per tablet TAKE 1 TABLET DAILY 90 tablet 0 ursodioL (GENOVEVA FORTE) 500 mg tablet TAKE 1 TABLET 3 TIMES A DAY 270 tablet 0 levothyroxine (SYNTHROID) 125 mcg tablet Take 1 tablet (125 mcg total) by mouth daily 90 tablet 4 No facility-administered encounter medications on file as of 05/16/2022. Physical Exam: Constitutional: Body mass index is 33.64 kg/m??. Vitals: 05/16/22 1331 BP: 120/76 Pulse: 70 Resp: 16 SpO2: 97% Weight: 88.9 kg (196 lb) Height: 162.6 cm (5' 4 ) {Physical Exam heart RRR and Lungs CTA Murmur left carotid. Results/Data: Old records were reviewed. I have personally reviewed the below Data Results for orders placed or performed during the hospital encounter of 05/01/22 VDRL, CSF CSF Specimen: CSF Result Value Ref Range VDRL CSF Negative Negative Glucose, CSF Result Value Ref Range Glucose, CSF 79 mg/dL Protein, total, CSF Result Value Ref Range Protein, CSF 49 (H) 5 - 45 mg/dL Manual Cell Count, CSF Result Value Ref Range Tube Number, CSF Tube 3 Color, CSF Colorless Colorless Clarity, CSF Clear Clear Xanthochromia, CSF Absent Absent Nucleated cells, CSF 2 0 - 5 /cumm RBC, CSF 10 (H) 0 - 0 /cumm POCT glucose Result Value Ref Range Glucose, POC 144 70 - 199 mg/dL Glucose comment 1 Use This Result Diagnosis: 1. Type 2 diabetes mellitus without complication, without long-term current use of insulin ([facility]) (HCC) 2. Bruit of left carotid artery 3. Thyroid nodule 4. Essential (primary) hypertension 5. Hyperlipidemia, mixed 6. Acquired hypothyroidism Assessment/Plan DIAGNOSES/ASSESSMENT Diagnoses and all orders for this visit: Type 2 diabetes mellitus without complication, without long-term current use of insulin ([facility] ([facility]) (E11.9) (Primary) - Albumin Creatinine Ratio, Urine; Future - TSH reflex to free T4; Future - Hemoglobin A1c; Future Bruit of left carotid artery (R09.89) - US Carotids Duplex Bilateral; Future - TSH reflex to free T4; Future - Hemoglobin A1c; Future Thyroid nodule (E04.1) - US Thyroid; Future - TSH reflex to free T4; Future - Hemoglobin A1c; Future Essential (primary) hypertension (I10) Assessment & Plan: Well controlled on triamterene hydrochlorothiazide, Lasix Hyperlipidemia, mixed (E78.2) Assessment & Plan: Relatively controlled without a statin. Continue diet exercise Acquired hypothyroidism (E03.9) Other orders - levothyroxine (SYNTHROID) 125 mcg tablet; Take 1 tablet (125 mcg total) by mouth daily Essential (primary) hypertension Well controlled on triamterene hydrochlorothiazide, Lasix Hyperlipidemia, mixed Relatively controlled without a statin. Continue diet exercise Diabetes. Hemoglobin A1c 6.0 back in 08/03. Need to take A1c with green assault due to abnormal thyroid functioning tests. Would want to corroborate with home readings. Advised patient to monitor homeblood sugar readings Thyroid-TSH is elevated so we will need to increase levothyroxine B12 is normal, CBC normal, vitamin-D normal New finding of bruit on the left side. Most likely either carotid or thyroid bruit. Check thyroid and carotid ultrasounds Patient Instructions BLOOD SUGAR TRACKER/blood pressure 1. Get US two 2.document sugars 3.change thyroid 125 4.blood before next visit PLAN & MEDICATION MANAGEMENT Orders Placed This Encounter US Carotids Duplex Bilateral US Thyroid Albumin Creatinine Ratio, Urine CANCELED: Hemoglobin A1c TSH reflex to free T4 Hemoglobin A1c levothyroxine (SYNTHROID) 125 mcg tablet Medication Management I am having Kimberly Isabel start on levothyroxine. I am also having her maintain her multivitamin, cholecalciferol, cetirizine, clobetasoL, furosemide, levothyroxine, LORazepam, buPROPion XL, triamterene-hydroCHLOROthiazide, and ursodioL. James Gentile MD documented in this encounter Miscellaneous Notes * Assessment & Plan Note - James Gentile MD - 05/19/2022 10:45 AM CDT Associated Problem(s): Hyperlipidemia, mixed Relatively controlled without a statin. Continue diet exercise * Assessment & Plan Note - James Gentile MD - 05/19/2022 10:45 AM CDT Associated Problem(s): Essential (primary) hypertension Well controlled on triamterene hydrochlorothiazide, Lasix * Addendum Note - Lurdes Waldrop 05/16/2022 1:30 PM CDTAddended by: LURDES WALDROP on: 09/27/2022 01:56 PM Modules accepted: Orders documented in this encounter Plan of Treatment Not on file documented as of this encounter Results * (ABNORMAL) Hemoglobin A1c (09/27/2022 1:55 PM CDT) Hgb A1C 7.0(H) 4.0 - 5.6 % [facility] Comment:Testing performed by : [address] [address] Estimated Average Glucose 154 mg/dL [facility] Comment: The ADA recommends reporting an estimated Average Glucose (eAG) with all Hemoglobin A1c results using the equation derived from a study of 507 normal and diabetic adults. ??Minority populations were underrepresented and children were not included. ?? (Diabetes Care 31:4009-1928, 2008). ??The eAG is not equivalent to a fasting glucose. Testing performed by: [address] [address] Blood 09/27/2022 1:55 PM CDT 09/27/2022 5:06 PM CDT us James Gentile MD LAB BLOOD ORDERABLES Final R esult [facility] [id number] [facility] Department [place] [address] * TSH reflex to free T4 (09/27/2022 1:55 PM CDT) TSH 3.98 0.30 - 4.20 mcIUnit/mL [facility] Comment:Testing performed by : [address] [address] Blood 09/27/2022 1:55 PM CDT 09/27/2022 5:06 PM CDT us James Gentile MD LAB BLOOD ORDERABLES Final R esult [facility] Department [place] [address] documented in this encounter Visit Diagnoses Diagnosis Type 2 diabetes mellitus without complication, without long-term current use of insulin (CMS/HCC) (HCC)- Primary Bruit of left carotid artery Thyroid nodule Nontoxic uninodular goiter Essential (primary) hypertension Unspecified essential hypertension Hyperlipidemia, mixed Mixed hyperlipidemia Acquired hypothyroidism Unspecified hypothyroidism documented in this encounter Care Teams Library Manager Relationship Specialty Start Date End Date James Gentile MD [address] [place] [id number] PCP - General Internal Medicine 03/01/22 01/17/24 documented as of this encounter
--- OUTSIDE RECORDS SUMMARY | 2024-02-12 03:53 | XMS_ITS | Encounter Summary ---
Author Organization [facility] Address [address] [place] [address] Phone Care Team Providers Care Microscopist Name Role Phone James Gentile MD Primary Care Provider + [phone] Encounter Details Date Type Department Care Team (Late st Contact Info) Description 11/30/2022 1:50 PM CDT Lab [facility] Endocrinology Metabolism and Lipid [address] [facility] 12th [place] [address] [place] [phone] Primary biliary cirrhosis (HCC) Social History Tobacco [...] Encounter Note - Latrice Freedman NP - 12/08/2022 10:19 AM CDT Reviewed with Dr. Carreno: Let's repeat US since there is not a recent one done. If no ductal abnormalities are seen, can stop with imaging. GGT is normal. Let's also send for alk phos fractionation that is done by [employer] For now continue with the Ursodiol and monitor the labs (e.g. in 4 months) Sent my chart message. * Result Encounter Note - Latrice Freedman NP - 12/04/2022 8:03 AM CDT Alk phos is better but still elevated. Unclear if PBC. Recommend MRI/MRCP. Sent my chart message. documented in this encounter Plan of Treatment Not on file documented as of this encounter Procedures Procedure Name Priority Date/Time Associated Diagnosis Comments CBC WITH AUTO DIFFERENTIAL Routine 11/30/2022 1:56 PM CDT Primary biliary cirrhosis (HCC) VITAMIN D 25 HYDROXY Routine 11/30/2022 1:56 PM CDT Primary biliary cirrhosis (HCC) GAMMA GT Routine 11/30/2022 1:56 PM CDT Primary biliary cirrhosis (HCC) COMPREHENSIVE METABOLIC PANEL Routine 11/30/2022 1:56 PM CDT Primary biliary cirrhosis (HCC) documented in this encounter Results * (ABNORMAL) Comprehensive metabolic panel (11/30/2022 1:56 [...] 1:56 PM CDT 11/30/2022 2:20 PM CDT Latrice Freedman [employer] LAB BLOOD ORDERABLES Fin al Result [facility] * Vitamin D 25 hydroxy (11/30/2022 1:56 PM CDT) Vitamin D 60.1 20.0 - 100.0 ng/mL [facility] Comment: VITAMIN D DEFICIENCY = LESS THAN or EQUAL TO 20 ng/mL VITAMIN D INSUFFICIENCY = 21 - 29 ng/mL VITAMIN D SUFFICIENT = 30-100 ng/mL Blood 11/30/2022 1:56 PM CDT 11/30/2022 2:20 PM CDT Latrice Freedman [employer] LAB BLOOD ORDERABLES Fin al Result [facility] * CBC with auto differential (11/30/2022 1:56 PM CDT) White Blood Count 7.0 3.6 - 11.2 [...] 1:56 PM CDT 11/30/2022 2:20 PM CDT Latrice Freedman [employer] LAB BLOOD ORDERABLES Fin al Result Performing Organization Address City/[facility] Co de Phone Number [facility] * Gamma GT (11/30/2022 1:56 PM CDT) GGT 14 5 - 36 IU/L [facility] Blood 11/30/2022 1:56 PM CDT 11/30/2022 2:20 PM CDT Latrice Freedman [employer] LAB BLOOD ORDERABLES Fin al Result Performing Organization Address [facility] Co de Phone Number [facility] documented in this encounter Visit Diagnoses Diagnosis Primary biliary cirrhosis (HCC) Biliary cirrhosis documented in this encounter Care Teams Microscopist Relationship Specialty Start Date End Date James Gentile MD [address] [place] [id number] PCP - General Internal Medicine 03/01/22 01/17/24 documented as of this encounter
--- OUTSIDE RECORDS SUMMARY | 2024-02-12 03:53 | XMS_ITS | Encounter Summary ---
Author Organization [facility] Address [address] [address] Care Team Providers Care Ur Coordinator Name Role Phone James Gentile MD Primary Care Provider + [phone] Reason for Visit * Reason Comments Follow-up 4 m f/u Encounter Details Date Type Department Care Team ([facility] st Contact Info) Description 09/27/2022 2:00 PM CDT Office Visit [facility] Primary Care [address] [place] [phone] James Gentile MD [address] [place] [phone] Type 2 diabetes mellitus without complication, without long-term current use of insulin (CMS/HCC) (HCC) (Primary Dx); Essential (primary) hypertension; Hyperlipidemia, mixed; Acquired hypothyroidism; Primary biliary cirrhosis (HCC); Class 2 severe obesity due to excess calories with serious comorbidity and body mass index (BMI) of 36.0 to 36.9 in adult (HCC); Cartilage disease; Encounter for vitamin deficiency screening; Other fatigue; 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; Other specified abnormal findings of blood chemistry; Malaise and fatigue Social History Tobacco Use Types Packs/Day Years [...] Sign Reading Time Taken Comments Blood Pressure 124/70 09/27/2022 2:04 PM CDT Pulse 60 09/27/2022 2:04 PM CDT Temperature - - Respiratory Rate 18 09/27/2022 2:04 PM CDT Oxygen Saturation 98% 09/27/2022 2:04 PM CDT Inhaled Oxygen Concentration - - Weight 95.7 kg (211 lb) 09/27/2022 2:04 PM CDT Height 162.6 cm (5' 4 ) 09/27/2022 2:04 PM CDT Body Mass Index 36.22 09/27/2022 2:04 PM CDT documented in this encounter Progress Notes * James Gentile MD - 09/27/2022 2:00 PM CDT Images from the original note were not included. Chief Complaint Patient presents with Follow-up 4 m f/u Todays Encounter Date: 09/27/2022 Last visit: 05/16/2022 All Appts with PCP recent/future) Next/future visit with Care Team Recent Visits Date Type Provider Dept 09/27/22 Office Visit James Gentile MD [facility] 250 05/16/22 Office Visit James Gentile MD [facility] Showing recent visits within past 180 days and meeting all other requirements Future Appointments Date Type Provider Dept 12/13/22 Appointment James Gentile MD [facility] 250 Showing future appointments within next 180 days and meeting all other requirements Future Appointments Date Time Provider Department Center 11/30/2022 1:40 PM Latrice Freedman NP [facility] 12/13/2022 2:30 PM James Gentile MD [facility] Patient ID: Kimberly Isabel is a 62 y.o. female. Chief Complaint. Chief Complaint Patient presents with Follow-up 4 m f/u Patient Care Team: James Gentile MD as PCP - General (Internal Medicine) HPI/ROS. Patient is a 62 y.o. female here for follow up on chronic conditions History obtained from patient Todays Encounter: 09/27/2022 Lost weight on 175. When last saw me was on 100 and we increased to 125. Tramadol 125. Cancelled in July to Still gaining weight. Gained wt so increased thyroid. 5-6 week Headaches, wt gain, Not using cpap. Claustophobic plus even worse sleep on it. Needs to get mri from liver doctor. ROS for Thyroid Hypothyroid/Hyperthyroid (Positive is in Bold) Fatigue/weakness, cold or heat intolerance, weight changes, Allergies? voice or hearing or speech changes hair or skin or nail changes change in BM (constiaption or diarrhea) cardio or pulm sx (edema,VALADEZ,palpitations) Anxiety/depression Tremors Arthralgias/myalgias Menstrual changes Still ongoing symptoms. DM-on metformin 150's pp normal. Ran out 4 month ago. Taking 175 intermittent with 125 for 5 weeks On berberine fbs 130's and pp152 Jasmina 11/24/21 Patient with PBC, reportedly diagnosed several years ago and is now establishing care here. She hasbeen on ursodiol 500 mg tid since time [...] her previous provider who was managing the PBC,Dr. Lopez. She follows-up with her PCP for hypothyroidism. She should also talk to her PCP about getting a bone density scan which she has never had. Ordered vitamin D level. She will return to clinic in 1 year. 05/16/2022 Review of Systems: See HPI Past Social,Medical,family [...] Onset Cancer Mother Other (Cerebrial Hemmorage) Father Marne's disease Brother Current Medications and Allergies: Allergies Allergen Reactions Milnacipran Unknown Trazodone Unknown Vilazodone Unknown Outpatient Encounter Medications as of 09/27/2022 Medication Sig Dispense Refill cetirizine (ZyrTEC) 10 [...] TAKE 1 TABLET DAILY 90 tablet 1 ursodioL (GENOVEVA FORTE) 500 mg tablet TAKE 1 TABLET 3 TIMES A DAY 270 tablet 1 [DISCONTINUED] buPROPion XL (WELLBUTRIN XL) 150 mg 24 hr tablet Take 1 tablet (150 mg total) by mouth every morning 90 tablet 3 No facility-administered encounter medications on file as of 09/27/2022. Physical Exam: Constitutional: Body mass index is 36.22 kg/m??. Vitals: 09/27/22 1404 BP: 124/70 Pulse: 60 Resp: 18 SpO2: 98% Weight: 95.7 kg (211 lb) Height: 162.6 cm (5' 4 ) [...] mg/dL Glucose comment 1 Use This Result Latest Reference Range & Units 04/18/22 15:18 Protein, sr 6.2 - 8.2 g/dL 6.8 Albumin 3.2 - 5.0 g/dL 4.0 Methylmalonic Acid, Serum <=0.40 nmol/mL 0.25 TSH 0.30 - 4.20 mcIUnit/mL 5.54 (H) WBC 3.8 - 9.9 K/cumm 6.5 Hgb 11.9 - 15.5 g/dL 12.9 Hct 35.6 - 45.5 % 38.1 Plt 150 - 400 K/cumm 354 MPV 9.1 - 12.3 fL 11.2 RBC 3.90 - 5.20 M/cumm 4.27 MCV 81.3 - 96.4 fL 89.2 MCH 27.1 - 33.3 pg 30.2 MCHC 32.3 - 35.7 g/dL 33.9 RDW CV 11.1 - 14.9 % 12.9 RDW SD 35.7 - 48.1 fL 42.1 NRBC abs 0.00 - 0.01 K/cumm 0.00 Neutrophil abs 1.7 - 6.5 K/cumm 4.4 Imm gran abs 0.0 - 0.1 K/cumm 0.0 Lymphocyte abs 0.8 - 3.3 K/cumm 1.6 Monocyte abs 0.2 - 0.8 K/cumm 0.4 Eosinophil abs 0.0 - 0.5 K/cumm 0.1 Basophil abs 0.0 - 0.1 K/cumm 0.1 Neutrophil pct % 67.2 Imm gran pct % 0.2 Lymphocyte pct % 23.9 Monocyte pct % 5.8 Eosinophil pct % 2.1 Basophil pct % 0.8 Vitamin B12 230 - 1,250 pg/mL 441 PT 12.0 - 14.6 sec 13.2 INR 0.9 - 1.2 1.0 aPTT 22 - 37 sec 30 Alpha-1 globulin 0.2 - 0.4 g/dL 0.3 Alpha-2 globulin 0.5 - 1.0 g/dL 0.8 Beta-1 globulin 0.3 - 0.6 g/dL 0.5 Beta-2 globulin 0.2 - 0.6 g/dL 0.5 Gamma globulin 0.5 - 1.7 g/dL 0.8 SPEP interp Please see comment Immunotyping See Immunotyping Results (H): Data is abnormally high Diagnosis: 1. Type 2 diabetes mellitus without complication, without long-term current use of insulin ([facility] ([facility]) 2. Essential (primary) hypertension 3. Hyperlipidemia, mixed 4. Acquired hypothyroidism 5. Primary biliary cirrhosis (HCC) 6. Class 2 severe obesity due to excess calories with serious comorbidity and body mass index (BMI)of 36.0 to 36.9 in adult ([facility]) 7. Cartilage disease 8. Encounter for vitamin deficiency screening 9. Other fatigue 10. 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 Other specified abnormal findings of blood chemistry 12. Malaise and fatigue Assessment/Plan DIAGNOSES/ASSESSMENT Diagnoses and all orders for this visit: Type 2 diabetes mellitus without complication, without long-term current use of insulin ([facility]) ([facility]) (E11.9) (Primary) Assessment & Plan: Controlled/stable. Continue current meds and plan Recetn hoem readings in range for pp but fasting still a little high with or without metformin Orders: - Lipid panel; Future - Creatinine; Future Essential (primary) hypertension (I10) Assessment & Plan: Controlled/stable. Continue current meds and plan Orders: - Lipid panel; Future - Creatinine; Future Hyperlipidemia, mixed (E78.2) Assessment & Plan: Waiting on labs drawn today to see if controlled.not on statin. Has pbc Orders: - Lipid panel; Future - Creatinine; Future Acquired hypothyroidism (E03.9) Primary biliary cirrhosis (HCC) (K74.3) Class 2 severe obesity due to excess calories with serious comorbidity and body mass index (BMI) of36.0 to 36.9 in adult (HCC) (E66.01, Z68.36) Assessment & Plan: Not at goal. Continue lifestyle modification, thyroid regulation.I recommend following 1200 caloriediet. As well as exercising 30-45 minutes most days of the week. 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 Continue current meds and plan Hyperlipidemia, mixed Waiting on labs drawn today to see if controlled.not on statin. Has pbc Type 2 diabetes mellitus without complication, without long-term current use of insulin ([facility] ([facility]) Controlled/stable. Continue current meds and plan Recetn hoem readings in range for pp but fasting still a little high with or without metformin Class 2 severe obesity due to excess calories with serious comorbidity and body mass index (BMI) of36.0 to 36.9 in adult (HCC) Not at goal. Continue lifestyle modification, thyroid regulation.I recommend following 1200 caloriediet. As well as exercising 30-45 minutes most days of the week. There are no Patient Instructions on file for this visit. PLAN & MEDICATION MANAGEMENT Orders Placed This Encounter Lipid panel Creatinine Vitamin D 25 hydroxy CBC with auto differential Comprehensive metabolic panel Hemoglobin A1c TSH reflex to free T4 Medication Management I have discontinued Kimberly Isabel's buPROPion XL. I am also having her maintain her multivitamin, cholecalciferol, cetirizine, clobetasoL, furosemide, levothyroxine, LORazepam, levothyroxine, ursodioL, and triamterene-hydroCHLOROthiazide. James Gentile MD documented in this encounter Miscellaneous Notes * Assessment & Plan Note - James Gentile MD - 10/10/2022 8:35 PM CDT Associated Problem(s): Class 2 severe obesity due to excess calories with serious comorbidity and body mass index (BMI) of 36.0 to 36.9 in adult (HCC) Not at goal. Continue lifestyle modification, thyroid regulation.I recommend following 1200 caloriediet. As well as exercising 30-45 minutes most days of the week. * Assessment & Plan Note - James Gentile MD - 09/27/2022 3:21 PM CDT Associated Problem(s): Type 2 diabetes mellitus without complication, without long-term current useof insulin ([facility] ([facility]) Controlled/stable. Continue current meds and plan Recetn hoem readings in range for pp but fasting still a little high with or without metformin * Assessment & Plan Note - James Gentile MD - 09/27/2022 3:19 PM CDT Associated Problem(s): Hyperlipidemia, mixed Waiting on labs drawn today to see if controlled.not on statin. Has pbc * Assessment & Plan Note - James Gentile MD - 09/27/2022 3:08 PM CDT Associated Problem(s): Essential (primary) hypertension Controlled/stable. Continue current meds and plan documented in this encounter Plan of Treatment Not on file documented as of this encounter Visit Diagnoses Diagnosis Type 2 diabetes mellitus without complication, without long-term current use of insulin ([facility]) (HCC)- Primary Essential (primary) hypertension Unspecified essential hypertension Hyperlipidemia, mixed Mixed hyperlipidemia Acquired hypothyroidism Unspecified hypothyroidism Primary biliary cirrhosis (HCC) Biliary cirrhosis Class 2 severe obesity due to excess calories with serious comorbidity and body mass index (BMI) of 36.0 to 36.9 in adult (HCC) Cartilage disease Encounter for vitamin deficiency screening Other fatigue 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
--- OUTSIDE RECORDS SUMMARY | 2024-02-12 03:53 | XMS_ITS | Encounter Summary ---
Author Organization [facility] Healthcare Address [address] [place] [address] Care Team Providers Care Contingents Supervisor Name Role Phone James Gentile MD Primary Care Provider + [phone] Encounter Details Date Type Department Care Team ([facility] st Contact Info) Description 12/13/2022 Telephone [facility] Primary Care [address] [phone] James Gentile MD [facility] [address] Social History Tobacco Use Types Packs/Day Years [...] encounter Miscellaneous Notes * Telephone Encounter - Michaela Cruz MA - 12/13/2022 11:48 AM CDT Chart Updated - Diabetic Eye Exam- [facility] documented in this encounter Plan of Treatment Not on file documented as of this encounter Procedures Procedure Name Priority Date/Time Associated Diagnosis Comments DIABETES EYE EXAM Routine 03/10/2022 documented in this encounter Results * DIABETES EYE EXAM (03/10/2022) SCRIBED DIABETIC DILATED EYE EXAM Normal Historical Provider HEALTH MAINTENANCE Final Result documented in this encounter Visit Diagnoses Not on filedocumented in this encounter Care Teams Contingents Supervisor Relationship Specialty Start Date End Date James Gentile MD [address] [place] [address] PCP - General Internal Medicine 03/01/22 01/17/24 documented as of this encounter
--- OUTSIDE RECORDS SUMMARY | 2024-02-12 03:53 | XMS_ITS | Encounter Summary ---
Author Organization [facility] Healthcare Address [address] [place] [address] Care Team Providers Care Quality Assurance Test Program Manager Name Role Phone James Gentile MD Primary Care Provider + [phone] Reason for Visit * Diagnostic Imaging (Routine) - Closed Specialty Diagnoses / Procedures Referred By Contac t Referred To Contact Diagnoses History of hydrocephalus Procedures NM Cisternogram Case Bucio Si, MD [address] [place] [address] Phone: tel: fax: [address] [phone] Referral ID Status Reason Start Date Expiration Date Visits Re quested Visits Authorized [id number] Closed 04/18/2022 05/18/2023 5 5 Encounter Details Date Type Department Care Team (Latest Contact Info) Description 05/01/2022 8:00 AM CDT - 05/01/2022 11:59 PM CDT Hospital Encounter [facility] Nuclear Medicine [address] [place] [address] [phone] Discharge Disposition: Discharge to home or self [...] D: ??05/05/2022 9:21 AM T: Report ID: [id number] [place] Location: ??[id number] Procedure Note Jesu Montiel MD - 05/05/2022 [...] Jesu Montiel M.D. LB T: Report ID: [id number] [place] Location: [id number] [facility] Keturah Bucio MD IMG NM PROCEDURES Final Result documented in this encounter Visit Diagnoses Not on filedocumented in this encounter Care Teams Quality Assurance Test Program Manager Relationship Specialty Start Date End Date James Gentile MD [address] [place] [address] PCP - General Internal Medicine 03/01/22 01/17/24 documented as of this encounter
--- OUTSIDE RECORDS SUMMARY | 2024-02-12 03:53 | XMS_ITS | Encounter Summary ---
Author Organization [facility] Healthcare Address [address] [place] [address] Care Team Providers Care [employer] Ticket Sales Name Role Phone James Gentile MD Primary Care Provider + [phone] Reason for Visit * Diagnostic Imaging (Routine) - Closed Specialty Diagnoses / Procedures Referred By Contac t Referred To Contact Diagnoses History of hydrocephalus Procedures NM Cisternogram Case Bucio Si, MD [address] [place] [address] Phone: tel: fax: [address] [phone] Referral ID Status Reason Start Date Expiration Date Visits Re quested Visits Authorized [id number] Closed 04/18/2022 05/18/2023 5 5 Encounter Details Date Type Department Care Team (Latest Contact Info) Description 05/01/2022 8:00 AM CDT - 05/01/2022 11:59 PM CDT Hospital Encounter [facility] Nuclear Medicine [address] [place] [phone] Discharge Disposition: Discharge to home or self [...] D: ??05/05/2022 9:21 AM T: Report ID: [id number] [place] Location: ??[id number] Procedure Note Jesu Montiel MD - 05/05/2022 [...] Jesu Montiel M.D. LB T: Report ID: [id number] [place] Location: [id number] [facility] Keturah Bucio MD IMG NM PROCEDURES Final Result documented in this encounter Visit Diagnoses Not on filedocumented in this encounter Care Teams [employer] Ticket Sales Relationship Specialty Start Date End Date James Gentile MD [address] [place] [phone] PCP - General Internal Medicine 03/01/22 01/17/24 documented as of this encounter
--- OUTSIDE RECORDS SUMMARY | 2024-02-12 03:54 | XMS_ITS | Encounter Summary ---
Author Organization [facility] Healthcare Address [address] [place] [address] Care Team Providers Care Moth Proofer Name Role Phone Maria Ines Garrido MD Primary Care Provider Encounter Details Date Type Department Care Team (Late st Contact Info) Description 09/08/2021 1:40 PM CDT Lab [facility] Building [address] [address] Acquired hypothyroidism Social History Tobacco Use Types [...] should administer the PHQ-9) 0 07/28/2021 Comments Unknown Sex and Gender Information Value Date Recorded Sex Assigned at Not on file Legal Sex Female 2:31 AM CDT Gender Identity Not on file Sexual Orientation Not on file documented as of this encounter Miscellaneous Notes * Result Encounter Note - Maria Ines Garrido MD - 09/09/2021 11:19 AM CDT Please let know her thyroid numbers are still too high, I advise we decrease her dose again. If she wishes, I can refer her to an nut processing supervisor to discuss... but any doctor is going to tell her that FT4 is dangerously high. I adivse we decrease to 100 mcg/daily. documented in this encounter Plan of Treatment Not on file documented as of this encounter Procedures Procedure Name Priority Date/Time Associated Diagnosis Comments TSH Routine 09/08/2021 1:47 PM CDT Acquired hypothyroidism T4, FREE Routine 09/08/2021 1:47 PM CDT Acquired hypothyroidism documented in this encounter Results * (ABNORMAL) TSH (09/08/2021 1:47 PM CDT) Thyroid Stimulating Hormone 0.17(L) 0.30 - 4.20 mcIUnit/mL [facility] Comment: Ref Range Low Testing performed by: [address] [address] Blood 09/08/2021 1:47 PM CDT 09/08/2021 4:43 PM CDT Maria Ines Garrido MD LAB BLOOD ORDERABLES Edited Res ult - Final Performing Organization Address City/[facility]/ZIP Co de Phone Number [place] [phone] [facility] [place] [address] * (ABNORMAL) T4, free (09/08/2021 1:47 PM CDT) Free T4 2.11(H) 0.90 - 1.70 ng/dL [facility] Comment:Testing performed by : [address] [address] Blood 09/08/2021 1:47 PM CDT 09/08/2021 4:43 PM CDT Maria Ines Garrido MD LAB BLOOD ORDERABLES Final Resu lt [place] [id number] [facility] [employer] [place] [address] documented in this encounter Visit Diagnoses Diagnosis Acquired hypothyroidism Unspecified hypothyroidism documented in this encounter Care Teams Moth Proofer Relationship Specialty Start Date End Date Maria Ines Garrido MD [address] [place] [phone] PCP - General Internal Medicine 07/14/21 02/28/22 documented as of this encounter
--- OUTSIDE RECORDS SUMMARY | 2024-02-12 03:54 | XMS_ITS | Encounter Summary ---
Author Organization [facility] Address [address] [facility] [address] [place] [address] Care Team Providers Care Compliance Intern Name Role Phone Maria Ines Garrido MD Primary Care Provider [phone] Reason for Referral * Consultation (Routine) - Closed Specialty Diagnoses / Procedures Referred By Contac t Referred To Contact Hepatobiliary Surgery Diagnoses Primary biliary cirrhosis (HCC) Maria Ines Garrido MD [address] [place] [address] Phone: tel: fax: [facility] (All Locations) Referral ID Status Reason Start Date Expiration Date V isits Requested Visits Authorized [id number] Closed Specialty Services Required 09/08/2021 10/09/2023 1 1 Question Answer Please select the performing region: [facility] (All Locations) [[id number]] # of visits: 1 Comments PBC, needs to establish here. Seeing dr. lopez in [place] * Diagnostic Imaging (Routine) - Closed Specialty Diagnoses / Procedures Referred By Contac t Referred To Contact Diagnoses Preventative health care Procedures Screening Mammogram Bilateral W Saul Maria Ines Garrido MD [address] [place] [address] Phone: tel: fax: [address] [phone] Referral ID Status Reason Start Date Expiration Date Visits Re quested Visits Authorized [id number] Closed 09/08/2021 10/08/2022 1 1 Encounter Details Date Type Department Care Team (Late st Contact Info) Description 09/08/2021 1:00 PM CDT Office Visit [facility] [address] [phone] Maria Ines Garrido MD [facility] [address] Essential (primary) hypertension; Acquired hypothyroidism; Preventative health care; Primary biliary cirrhosis (HCC); Hyperlipidemia, mixed Social History Tobacco Use Types [...] Sign Reading Time Taken Comments Blood Pressure 132/62 09/08/2021 12:54 PM CDT Pulse 69 09/08/2021 12:54 PM CDT Temperature - - Respiratory Rate - - Oxygen Saturation 98% 09/08/2021 12:54 PM CDT Inhaled Oxygen Concentration - - Weight 82.3 kg (181 lb 6.4 oz) 09/08/2021 12:54 PM CDT Height 162.6 cm (5' 4 ) 09/08/2021 12:54 PM CDT Body Mass Index 31.14 09/08/2021 12:54 PM CDT documented in this encounter Patient Instructions * Patient Instructions* Maria Ines Garrido MD - 09/08/2021 1:00 PM CDT Check your thyroid labs when you get a chance. COVID booster [place]- [facility] Miralax- uses this - take 1/2-1 capful daily in the morning Simethicone/gasx: You need a diabetic eye exam: Dr. Sainz Consider getting Shingrix (shingles vaccine). This is a 2-shot series with each injection given 2-6months apart. You can obtain the vaccine at most major pharmacies without a prescription documented in this encounter Progress Notes * Maria Ines Garrido MD - 09/08/2021 1:00 PM CDT Images from the original note were not included. Patient ID: Kimberly Isabel is a 61 y.o. female. Chief Complaint. No chief complaint on file. HPI. Patient is a 61 y.o. female here for her annual. HPI Constipated: on tramadol, takes dulcolax. DM2: ha1c was 6, on metformin. Needs diabetic eye exam Preventative: Mammogram: not sure on due date, probably due. No prior abnormal mammograms. Pap smear: never had an abnormal pap smear. More than 10 years in past Colnoscopy- last I found was 2013 but she states she has had a more recent. [facility] did it.Dr. Lopez Hypothyroidism: bad headaches when we decreased her dose 6 weeks ago.TSH too loww, Ft4 too high. Component Latest Ref Rng & Units 07/28/2021 Sodium 135 - 145 mmol/L 139 Potassium, pl 3.3 - 4.9 mmol/L 3.7 Chloride 97 - 110 mmol/L 99 CO2 22 - 32 mmol/L 29 Anion gap 2 - 15 mmol/L 11 BUN 8 - 25 mg/dL 11 Creatinine 0.60 - 1.10 mg/dL 0.60 Glucose 70 - 199 mg/dL 123 Calcium 8.5 - 10.3 mg/dL 10.3 Bilirubin, total 0.1 - 1.2 mg/dL 0.7 Protein, pl 6.5 - 8.5 g/dL 7.6 Albumin 3.5 - 5.0 g/dL 4.5 Alk phos 40 - 130 Units/L 182 (H) ALT 7 - 45 Units/L 27 AST 10 - 45 Units/L 42 Cholesterol 30 - 199 mg/dL 182 Triglycerides <=149 mg/dL 87 HDL Cholesterol >=40 mg/dL 58 LDL Cholesterol Calc <=129 mg/dL 107 Non-HDL Cholesterol mg/dL 124 Chol/HDL ratio 3 Hgb A1C 4.0 - 5.6 % 6.0 (H) Estim. Avg Glu (eAG) mg/dL 126 Free T4 0.90 - 1.70 ng/dL 2.19 (H) TSH 0.30 - 4.20 mcIUnit/mL 0.03 (L) eGFR mL/min/1.73 m2 102 Essential (primary) hypertension Assessment & Plan: Stable triamterene-hctz ?? Hyperlipidemia, mixed - Lipid panel; Future ? Non-toxic multinodular goiter Assessment & Plan: US under media, done 09/24/2020- 1 r nodule likely benign colloid nodule ? Other hydrocephalus (HCC) Assessment & Plan: Pt states she had a ct scan with hydrocephalus? And this is why she is on triamterene-hctz.. she was seeing a neurousrgeon, they didn't want to do surgery. They instructed her to come back when its life-limiting . Has been 5 years since she saw a neurosurgeon. We need records at least from pcp. ? Type 2 diabetes mellitus without complication, without long-term current use of insulin (CMS/HCC) (HCC) - Hemoglobin A1c; Future ?? Primary biliary cirrhosis (HCC) Assessment & Plan: Diagnosed a long time ago. Gets a biopsy every so often? Alkaline phosphatase. Itching all over-zyrtec helps Liver doctor in [place]: Dr. Lopez ? Fibromyalgia Assessment & Plan: Was seeing Dr. PARISH in [facility] in [place] before Stable on long acting ultracet, would cont ? Current Medications: Outpatient Encounter Medications as of 09/08/2021 Medication Sig Dispense Refill ??? atorvastatin (LIPITOR) 10 mg tablet Take 10 mg by mouth daily ??? cetirizine (ZyrTEC) 10 mg tablet Take 10 mg by mouth daily ??? cholecalciferol (VITAMIN D-3) 25 mcg (1,000 unit) tablet Take 1,000 Units by mouth daily ??? clobetasoL (TEMOVATE) 0.05 % ointment Apply topically ??? furosemide (LASIX) 20 mg tablet see administration instructions. Take one tablet 2-3 days per week in the morning for swelling ??? levothyroxine (SYNTHROID) 137 mcg tablet Take 1 tablet (137 mcg total) by mouth daily 30 tablet1 ??? metFORMIN (GLUCOPHAGE) 500 mg tablet Take 1 tablet (500 mg total) by mouth 2 (two) times a day 180 tablet 0 ??? multivitamin tablet Take 1 tablet by mouth daily ??? traMADol ER (ULTRAM-ER) 300 mg 24 hr tablet Take 1 tablet (300 mg total) by mouth daily 30 tablet 2 ??? triamterene-hydroCHLOROthiazide (triamterene-hydroCHLOROthiazide) 37.5-25 mg per tablet/capsuleTake 1 tablet by mouth daily ??? ursodioL (GENOVEVA FORTE) 500 mg tablet Take 1 tablet (500 mg total) by mouth 3 (three) times a day90 tablet 0 No facility-administered encounter medications on file as of 09/08/2021. Review of Systems: Review of Systems BP 132/62 (BP Location: Right arm, Patient Position: Sitting) Pulse 69 Ht 162.6 cm (5' 4 ) Wt82.3 kg (181 lb 6.4 oz) SpO2 98% BMI 31.14 kg/m?? Physical Exam: Physical Exam Constitutional: Appearance: Normal appearance. Cardiovascular: Rate and Rhythm: Normal rate and regular rhythm. Pulmonary: Effort: Pulmonary effort is normal. Breath sounds: Normal breath sounds. Neurological: Mental Status: She is alert. Psychiatric: Mood and Affect: Mood normal. Behavior: Behavior normal. Assessment & Plan: Diagnoses and all orders for this visit: Essential (primary) hypertension Assessment & Plan: triamt/hctz Acquired hypothyroidism Assessment & Plan: Synthroid lowerd fro 175 to 137 mcg/da 07/2021- needs recheck labs Preventative health care Assessment & Plan: Needs pap- referral placed Trying to get cscope again- she has had done in [place] with Dr. Herrmann in last 2 years covid booster advised Orders: - Screening Mammogram Bilateral W Saul; Future - Ambulatory referral to Obstetrics / Gynecology; Future - Pneumococcal conjugate vaccine 13-valent IM (Prevnar-13) Primary biliary cirrhosis (HCC) - Ambulatory referral to Hepatology Hyperlipidemia, mixed Maria Ines Garrido MD documented in this encounter Miscellaneous Notes * Assessment & Plan Note - Maria Ines Garrido MD - 09/08/2021 2:36 PM CDTAssociated Problem(s): Preventative health care Needs pap- referral placed Trying to get cscope again- she has had done in [place] with Dr. Herrmann in last 2 years covid booster advised * Assessment & Plan Note - Maria Ines Garrido MD - 09/08/2021 1:11 PM CDTAssociated Problem(s): Acquired hypothyroidism Synthroid lowerd fro 175 to 137 mcg/da 07/2021- needs recheck labs * Assessment & Plan Note - Maria Ines Garrido MD - 09/08/2021 1:10 PM CDTAssociated Problem(s): Essential (primary) hypertension triamt/hctz documented in this encounter Plan of Treatment Scheduled Referrals Name Type Priority Associated Diagnoses Order Schedule Ambulatory referral to Hepatology Outpatient Referral Routine Primary biliary cirrhosis (HCC) Ordered: 09/08/2021 documented as of this encounter Results * Screening Mammogram Bilateral W Saul (12/06/2021 12:10 PM CDT) Anatomical Region Laterality Modality Breast Bilateral Mammography Impressions 12/14/2021 10:17 AM CDT BI-RADS?? ATLAS category (overall): 2 - Benign There is no mammographic evidence of malignancy. A 1 year screening mammogram is recommended. The patient has been or will be contacted. We recommend annual screening mammography for women at average risk of breast cancer beginning at age 40, based on guidelines of the [employer] (ACR Practice Parameter for the Performance of Screening and Diagnostic Mammography) and [employer] [place]. For women with and elevated risk of breast cancer, please refer to the ACR Practice Parameter for specific screening recommendations. The patient will be entered into a reminder system with a target due date of 1 year for her next screening exam. Narrative 12/14/2021 10:17 AM CDT Screening Mammogram Bilateral W Saul: 12/06/21 The study was acquired using full field digital technology and interpreted from soft copy. 2D digital mammographic views, as well as 3D digital tomosynthesis were performed in the CC and MLO projections. CLINICAL: ??Preventative health care. ??No relevant medical history has been documented for this patient. ??No known family history of breast cancer. COMPARISONS: 09/16/2020 Breast Imaging Screening Outside Reference 04/14/2019 Breast Imaging Screening Outside Reference 03/07/2018 Breast Imaging Screening Outside Reference 01/24/2017 Breast Imaging Procedure Outside Reference 12/04/2016 Breast Imaging US Outside Reference 11/29/2016 Breast Imaging US Outside Reference 11/29/2016 Breast Imaging Diagnostic Outside Reference 06/01/2016 Breast Imaging Diagnostic Outside Reference 06/01/2016 Breast Imaging US Outside Reference 05/29/2016 Breast Imaging US Outside Reference 05/29/2016 Breast Imaging Diagnostic Outside Reference 05/23/2016 Breast Imaging Screening Outside Reference BREAST TISSUE: The breasts have scattered areas of fibroglandular density. FINDINGS: There are benign calcifications in both breasts. There are postoperative findings in the right breast. There is a biopsy clip in the left breast. No suspicious masses, suspicious calcifications, or other suspicious findings are seen within either breast. There has been no suspicious change. Maria Ines Garrido MD IMG MAMMO PROCEDURES Final Resu lt documented in this encounter Visit Diagnoses Diagnosis Essential (primary) hypertension Unspecified essential hypertension Acquired hypothyroidism Unspecified hypothyroidism Preventative health care Routine general medical examination at a health care facility Primary biliary cirrhosis (HCC) Biliary cirrhosis Hyperlipidemia, mixed Mixed hyperlipidemia Preventative health care Routine general medical examination at a health care facility documented in this encounter Orders Immunization/Injection Count Last Ordered Date First Ordered Date PNEUMOCOCCAL CONJUGATE VACCI NE 13-VALENT IM 1 09/08/2021 documented in this encounter Care Teams Compliance Intern Relationship Specialty Start Date End Date Maria Ines Garrido MD [address] [place] [phone] PCP - General Internal Medicine 07/14/21 02/28/22 documented as of this encounter
--- OUTSIDE RECORDS SUMMARY | 2024-02-12 03:54 | XMS_ITS | Encounter Summary ---
Author Organization [facility] Address [address] [place] [address] Phone Care Team Providers Care Core Inserter Name Role Phone Maria Ines Garrido MD Primary Care Provider [phone] Encounter Details Date Type Department Care Team (Late st Contact Info) Description 12/08/2021 Telephone [facility] [facility] 12th [place] [address] [place] [phone] Kimberly Jordan RN Social History Tobacco Use Types Packs/Day [...] encounter Miscellaneous Notes * Telephone Encounter - Kimberly Jordan RN - 12/08/2021 1:11 PM CDT Task to pool to coordinate MRI/MRCP. I will follow up when scheduled and call pt to discuss premedication for claustrophobia. ----- Message from Latrice Freedman NP sent at 12/08/2021 1:01 PM CDT ----- Liver pathology reviewed in conference. Shows steatosis, not indicated of steatohepatitis. 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 Called patient and informed about results. Recommend MRI/MRCP and she is agreeable. Mary - can you please help in getting patient scheduled? She would like to do this locally if it is possible but is willing to come here. She is also claustrophobic so will need to be pre-medicated. Just let me know when she's scheduled and I can have one of my colleagues send meds to her pharmacy. Thanks. documented in this encounter Plan of Treatment Not on file documented as of this encounter Visit Diagnoses Not on filedocumented in this encounter Care Teams Core Inserter Relationship Specialty Start Date End Date Maria Ines Garrido MD [address] [place] [id number] PCP - General Internal Medicine 07/14/21 02/28/22 documented as of this encounter
--- OUTSIDE RECORDS SUMMARY | 2024-02-12 03:54 | XMS_ITS | Encounter Summary ---
Author Organization [facility] Address [address] [place] [address] Care Team Providers Care Route Supervisor Name Role Phone James Gentile MD Primary Care Provider [phone] Reason for Referral * Consultation (Routine) - Closed Specialty Diagnoses / Procedures Referred By Contac t Referred To Contact Neurology Diagnoses History of hydrocephalus James Gentile MD [address] [address] Phone: tel: fax: Case Parisi Si, MD Phone: tel: fax: Referral ID Status Reason Start Date Expiration Date V isits Requested Visits Authorized [id number] Closed Specialty Services Required 03/01/2022 03/31/2023 12 12 Question Answer Please select the performing region: [facility] [[id number]] Please select the performing department: [facility] NEURO [facility] 250 [[id number]] To provider: CASE PARISI SI [[id number]] # of visits: 1 Comments [address] [place] [address] SE AGENT Reason for Visit * Reason Comments Follow-up 6 m f/u. Former dr addy chavez pt Eye Problem Lt eye redness for a couple of days. Pt c/o pain and itching Encounter Details Date Type Department Care Team (Late st Contact Info) Description 03/01/2022 2:00 PM CRUISE AGENT Office Visit [facility] Primary Care [address] [address] James Gentile MD [facility] [address] Type 2 diabetes mellitus without complication, without long-term current use of insulin (CMS/HCC) (HCC) (Primary Dx); History of hydrocephalus; Primary biliary cirrhosis (HCC); Essential (primary) hypertension; Hyperlipidemia, mixed; Acquired hypothyroidism; Non-toxic multinodular goiter; Need for hepatitis C screening test Social History Tobacco Use Types Packs/Day Years [...] Sign Reading Time Taken Comments Blood Pressure 133/80 03/01/2022 2:03 PM CRUISE AGENT Pulse 65 03/01/2022 2:03 PM CRUISE AGENT Temperature - - Respiratory Rate 16 03/01/2022 2:03 PM CRUISE AGENT Oxygen Saturation 99% 03/01/2022 2:03 PM CRUISE AGENT Inhaled Oxygen Concentration - - Weight 87.5 kg (193 lb) 03/01/2022 2:03 PM CRUISE AGENT Height 162.6 cm (5' 4 ) 03/01/2022 2:03 PM CRUISE AGENT Body Mass Index 33.13 03/01/2022 2:03 PM CRUISE AGENT documented in this encounter Ordered Prescriptions Prescription Sig Dispense Quantity Refills Last Filled Start Date End Date buPROPion XL (WELLBUTRIN XL) 150 mg 24 hr tablet Take 1 tablet (150 mg total) by mouth every morning 30 tablet 11 03/01/2022 3 documented in this encounter Progress Notes * James Gentile MD - 03/01/2022 2:00 PM CST Images from the original note were not included. Todays Encounter Date: 03/01/2022 Last visit: Visit date not found All Appts with PCP recent/future) Next/future visit with Care Team Recent Visits Date Type Provider Dept 03/01/22 Office Visit [facility] MD [facility] Showing recent visits within past 180 days and meeting all other requirements Future Appointments Date Type Provider Dept 04/26/22 Appointment James Gentile MD [facility] [place] [facility] Showing future appointments within next 180 days and meeting all other requirements Future Appointments Date Time Provider Department Center 04/18/2022 2:00 PM Case Parisi Si, MD [facility] 04/26/2022 1:30 PM James Gentile MD [facility] 11/30/2022 1:40 PM Latrice Freedman NP [facility] Patient ID: Kimberly Isabel is a 61 y.o. female. Chief Complaint. Chief Complaint Patient presents with Follow-up 6 m f/u. Former dr conklin pt Eye Problem Lt eye redness for a couple of days. Pt c/o pain and itching Patient Care Team: James Gentile MD as PCP - General (Internal Medicine) Health Maintenance Topic Date Due Cervical Cancer Screening-Pap and HPV Never done Hepatitis C Screening Never done Dilated Eye Exam Never done Urine Microalbumin Never done Zoster Vaccines Never done Influenza Vaccine (1) 10/13/2021 Hemoglobin A1C 01/27/2022 Covid-19 Vaccine (4 - Booster for Moderna series) 03/01/2023 (Originally 03/29/2021) Depression Screening-PHQ 07/28/2022 Lipid Panel 07/28/2022 Regular Well Visit/Exam 18-64 09/08/2022 Pneumococcal vaccine <65 (2 - PPSV23 if available, else PCV20) 09/08/2022 Foot Exam 09/08/2022 Breast Cancer Screening-Mammogram 12/06/2022 DTaP/Tdap/Td Vaccine (2 - Td or Tdap) 01/23/2028 Colon Cancer Screening-Colonoscopy 09/22/2030 HPI and ROS . Patient is a 61 y.o. female here to establish care as transfer from prior PCP History obtained from patient Background Loves family. Sabine moreira. Lifestyle/Habits reports that she has never smoked. She has never used smokeless tobacco. She reports that she does not use drugs. Exercise/Diet 11 yrs periods. 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 Couldn't sleep. Dx with mono . Weak. Thyroid followed by Fibromyalgia.colettealkim solorzanoexor. Pbc hydrocephalus After second child dx thyroid.(Overactive) iodine ablation.radiation. And had itching. H/o abd pain upper colon with excrutiating pain. 14 yrs ago. [place] from above/below explosive. elevated Psoriasis ROS Review of Systems MAGDALENA-7 PHQ Screening Past Social,Medical,family Hx:all hx was reviewed and updated in [employer] Past Medical History: Diagnosis Date Allergic Arthritis Autoimmune disease (CMS/HCC) (HCC) Diabetes mellitus (HCC) Thyroid disease Past Surgical History: Procedure Laterality Date BREAST BIOPSY Left Social History Tobacco Use Smoking status: Never Smokeless tobacco: Never Substance and Sexual Activity Drug use: Never Sexual activity: Not Currently Alcohol Use: Unknown Frequency of Alcohol Consumption: Monthly or less Average Number of Drinks: Not on file Frequency of Binge Drinking: Not on file Family History Problem Relation Age of Onset Cancer Mother Other (Cerebrial Hemmorage) Father Breana's disease Brother Current Medications and Allergies:Allergies,meds, and pharmacy was reviewed and updated in [facility] Allergies Allergen Reactions Milnacipran Unknown Trazodone Unknown Vilazodone Unknown Outpatient Encounter Medications as of 03/01/2022 Medication Sig Dispense Refill cetirizine (ZyrTEC) 10 mg tablet Take 10 [...] 3 TIMES A DAY 270 tablet 0 [DISCONTINUED] atorvastatin (LIPITOR) 10 mg tablet Take 1 tablet (10 mg total) by mouth daily 30 tablet 3 [DISCONTINUED] metFORMIN (GLUCOPHAGE) 500 mg tablet TAKE 1 TABLET TWICE A DAY 180 tablet 0 [DISCONTINUED] traMADol ER (ULTRAM-ER) 300 mg 24 hr tablet TAKE 1 TABLET DAILY 30 tablet 2 [DISCONTINUED] buPROPion XL (WELLBUTRIN XL) 150 mg 24 hr tablet Take 1 tablet (150 mg total) by mouth every morning 30 tablet 11 No facility-administered encounter medications on file as of 03/01/2022. Physical Exam: Constitutional: Body mass index is 33.13 kg/m??. Vitals: 03/01/22 1403 BP: 133/80 Pulse: 65 Resp: 16 SpO2: 99% Weight: 87.5 kg (193 lb) Height: 162.6 cm (5' 4 ) Physical Exam Results/Data: Old records/data were reviewed. Results for orders placed or performed during the hospital encounter of 11/24/21 Mitochondrial antibodies, qualitative Result Value Ref Range Anti-mitochondrial Negative Negative { CHEMISTRY 07/28/21 1222 11/24/21 1521 Sodium 139 -- Potassium, pl 3.7 -- Potassium -- 3.9 Chloride 99 -- CO2 29 -- CO2 Content -- 32* BUN -- 10 Glucose 123 114* Creatinine 0.60 0.98 Calcium 10.3 10.2 Albumin 4.5 4.5 Protein, pl 7.6 -- Total Protein -- 7.4 eGFR -- 65.7 AST 42 -- AST (SGOT) -- 26 ALT 27 -- ALT (SGPT) -- 22 Alk phos 182* -- Alk Phos, Total -- 210* Bilirubin, total 0.7 -- Total Bilirubin -- 0.49 GFR 11/24/21 1521 eGFR 65.7 LIPIDS 07/28/21 1222 Cholesterol 182 LDL, calculated 107 HDL 58 Chol/HDL ratio 3 Triglycerides 87 HEMATOLOGY 11/24/21 1521 White Blood Count 6.8 RBC 4.48 Hemoglobin 13.0 MCV 87.2 MCH 29.1 Invalid input(s): B12 Endocrinology THYROID 07/28/21 1222 09/08/21 1347 11/24/21 1521 Thyroid Stimulating Hormone 0.03* 0.17* -- TSH (Thyrotropin) -- -- 3.29 Free T4 2.19* 2.11* 1.38 VitD/Calcium/Bone 07/28/21 1222 11/24/21 1521 Calcium 10.3 10.2 PCOS/ 07/28/21 1222 Hgb A1C 6.0* DM 11/24/21 1521 Hemoglobin 13.0 Hematocrit 39.0 DM A/P & evaluation: Hgb A1c (goal <7%): @[id number](HGBA1C)@ 11/24/21 1521 Creatinine 0.98 Microalb/Cre ratio (goal <30): Lipids 07/28/21 1222 LDL, calculated 107 BP (goal [id number]) : BP Readings from Last 3 Encounters: 03/01/22 133/80 11/24/21 137/89 09/08/21 132/62 Invalid input(s): BP Health Maintenance Due Topic Date Due Dilated Eye Exam Never done Urine Microalbumin Never done Hemoglobin A1C 01/27/2022 VITAMINS/MINERALS GI 07/28/21 1222 11/24/21 1521 AST 42 -- AST (SGOT) -- 26 ALT (SGPT) -- 22 ALT 27 -- Alk phos 182* -- Alk Phos, Total -- 210* INFLAMATION Rheumatologic Screening Mammogram Bilateral W Saul Narrative: Screening Mammogram Bilateral W Saul: 12/06/21 The study was acquired using full field digital technology and interpreted from soft copy. 2D digital mammographic views, as well as 3D digital tomosynthesis were performed in the CC and MLO projections. CLINICAL: Preventative health care. No relevant medical history has been documented for this patient. No known family history of breast cancer. COMPARISONS: [...] breast. There has been no suspicious change. Impression: BI-RADS?? ATLAS category (overall): 2 - Benign There is no mammographic evidence of malignancy. A 1 year screening mammogram is recommended. The patient has been or will be contacted. We recommend annual screening mammography for women at average risk of breast cancer beginning at age 40, based on guidelines of the [employer] (ACR Practice Parameter for the Performance of Screening and Diagnostic Mammography) and [employer]. For women with and elevated risk of breast cancer, please refer to the ACR Practice Parameter for specific screening recommendations. No results found. No results found for: CBCAUTODIFF, CMP No results found for: CMP Assessment & Plan: Diagnosis: 1. Type 2 diabetes mellitus without complication, without long-term current use of insulin (CMS/HCC) (HCC) 2. History of hydrocephalus 3. Primary biliary cirrhosis (HCC) 4. Essential (primary) hypertension 5. Hyperlipidemia, mixed 6. Acquired hypothyroidism 7. Non-toxic multinodular goiter 8. Need for hepatitis C screening test Assessment/Plan DIAGNOSES/ASSESSMENT Diagnoses and all orders for this visit: Type 2 diabetes mellitus without complication, without long-term current use of insulin (CMS/HCC) (HCC) (E11.9) (Primary) - Hemoglobin A1c; Future - Microalbumin, urine, random; Future - PTH; Future - Alkaline phosphatase, isoenzymes; Future - Phosphorus; Future - Vitamin D 25 hydroxy; Future History of hydrocephalus (Z86.69) - PTH; Future - Alkaline phosphatase, isoenzymes; Future - Phosphorus; Future - Vitamin D 25 hydroxy; Future - Ambulatory referral to Neurology; Future Primary biliary cirrhosis (HCC) (K74.3) Assessment & Plan: Continue follow up with hepatology. Essential (primary) hypertension (I10) Assessment & Plan: Controlled/stable. Continue current meds and plan Hyperlipidemia, mixed (E78.2) Assessment & Plan: Controlled/stable. Continue current meds and plan Acquired hypothyroidism (E03.9) Assessment & Plan: Controlled/stable. Continue current meds and plan Orders: - PTH; Future Non-toxic multinodular goiter (E04.2) - PTH; Future Need for hepatitis C screening test (Z11.59) - Hepatitis C antibody; Future Essential (primary) hypertension Controlled/stable. Continue current meds and plan Hyperlipidemia, mixed Controlled/stable. Continue current meds and plan Acquired hypothyroidism Controlled/stable. Continue current meds and plan Primary biliary cirrhosis (HCC) Continue follow up with hepatology. PLAN & MEDICATION MANAGEMENT Orders Placed This Encounter Hemoglobin A1c Hepatitis C antibody Microalbumin, urine, random PTH Alkaline phosphatase, isoenzymes Phosphorus Vitamin D 25 hydroxy Ambulatory referral to Neurology DISCONTD: buPROPion XL (WELLBUTRIN XL) 150 mg 24 hr tablet Medication Management I have discontinued Kimberly Isabel's atorvastatin, traMADol ER, and metFORMIN. I am also having hermaintain her multivitamin, cholecalciferol, cetirizine, clobetasoL, furosemide, levothyroxine, LORazepam, triamterene- hydroCHLOROthiazide, and ursodioL. There are no Patient Instructions on file for this visit. James Gentile MD SE AGENT documented in this encounter Miscellaneous Notes * Assessment & Plan Note - James Gentile MD - 03/10/2022 6:28 PM CRUISE AGENT Associated Problem(s): Primary biliary cirrhosis (HCC) Continue follow up with hepatology. SE AGENT * Assessment & Plan Note - James Gentile MD - 03/10/2022 6:28 PM CRUISE AGENT Associated Problem(s): Acquired hypothyroidism Controlled/stable. Continue current meds and plan SE AGENT * Assessment & Plan Note - James Gentile MD - 03/10/2022 6:27 PM CRUISE AGENT Associated Problem(s): Hyperlipidemia, mixed Controlled/stable. Continue current meds and plan SE AGENT * Assessment & Plan Note - James Gentile MD - 03/10/2022 6:27 PM CRUISE AGENT Associated Problem(s): Essential (primary) hypertension Controlled/stable. Continue current meds and plan SE AGENT documented in this encounter Plan of Treatment Scheduled Orders Name Type Priority Associated Diagnoses Orde r Schedule Microalbumin, urine, random Lab Routine Type 2 diabetes mellitus without complication, without long-term current use of insulin (CMS/HCC) (HCC) Expected: 03/01/2022, Expires: 03/01/2023 Scheduled Referrals Name Type Priority Associated Diagnoses Orde r Schedule Ambulatory referral to Neurology Outpatient Referral Routine History of hydrocephalus Expected: 03/15/2022 (Approximate), Expires: 03/01/2023 documented as of this encounter Visit Diagnoses Diagnosis Type 2 diabetes mellitus without complication, without long-term current use of insulin (CMS/HCC) (HCC)- Primary History of hydrocephalus Other personal history of disorders of nervous system and sense organs Primary biliary cirrhosis (HCC) Biliary cirrhosis Essential (primary) hypertension Unspecified essential hypertension Hyperlipidemia, mixed Mixed hyperlipidemia Acquired hypothyroidism Unspecified hypothyroidism Non-toxic multinodular goiter Nontoxic multinodular goiter Need for hepatitis C screening test Special screening examination for other specified viral diseases documented in this encounter Discontinued Medications Medication Sig Discontinue Reason Start Date End Da te traMADol ER (ULTRAM-ER) 300 mg 24 hr tablet TAKE 1 TABLET DAILY Therapy completed 01/31/20222022 metFORMIN (GLUCOPHAGE) 500 mg tablet TAKE 1 TABLET TWICE A DAY Therapy completed 02/14/2022 03/01/2022 atorvastatin (LIPITOR) 10 mg tablet Take 1 tablet (10 mg total) by mouth daily Therapy completed 12/19/2021 03/01/2022 documented as of this encounter Care Teams Route Supervisor Relationship Specialty Start Date End Date James Gentile MD [address] [place] [address] PCP - General Internal Medicine 03/01/22 01/17/24 documented as of this encounter
--- OUTSIDE RECORDS SUMMARY | 2024-02-12 03:54 | XMS_ITS | Encounter Summary ---
Author Organization [facility] Address [address] [place] [address] Care Team Providers Care Ring Conductor Name Role Phone Krunal Dill MD Primary Care Provider [phone] Encounter Details Date Type Department Care Team ([facility] st Contact Info) Description 09/09/2021 Telephone [facility] Primary Care [address] [address] Krunal Dill MD [facility] [address] Social History Tobacco Use Types [...] Filled Start Date End Date levothyroxine (SYNTHROID) 100 mcg tablet Take 1 tablet (100 mcg total) by mouth daily 90 tablet 4 09/09/2021 03/13/2023 documented in this encounter Miscellaneous Notes * Telephone Encounter - Aline Cr MA - 09/09/2021 3:54 PM CDT Informed of repeat labs * Telephone Encounter - Krunal Dill MD - 09/09/2021 2:58 PM CDT Fair enough, will do. She needs to check labs again in 4-6 weeks ! * Addendum Note - Krunal Dill MD - 09/09/2021 2:58 PM CDTAddended by: KRUNAL DILL on: 09/09/2021 02:58 PM Modules accepted: Orders * Telephone Encounter - Aline Cr MA - 09/09/2021 1:36 PM CDT Patient asking if you can send RX for this? Doesn't care to see endo * Telephone Encounter - Aline Cr MA - 09/09/2021 1:35 PM CDT ----- Message from Krunal Dill MD sent at 09/09/2021 11:19 AM CDT ----- Please let know her thyroid numbers are still too high, I advise we decrease her dose again. If she wishes, I can refer her to an toll line inspector to discuss... but any doctor is going to tell her that FT4 is dangerously high. I adivse we dec rease to 100 mcg/daily. documented in this encounter Plan of Treatment Not on file documented as of this encounter Visit Diagnoses Diagnosis Hypothyroidism, unspecified type- Primary documented in this encounter Discontinued Medications Medication Sig Discontinue Reason Start Date End Da te levothyroxine (SYNTHROID) 137 mcg tablet Take 1 tablet (137 mcg total) by mouth daily 07/29/2021 09/09/2021 documented as of this encounter Care Teams Ring Conductor Relationship Specialty Start Date End Date Krunal Dill MD [address] [place] [id number] PCP - General Internal Medicine 07/14/21 02/28/22 documented as of this encounter
--- OUTSIDE RECORDS SUMMARY | 2024-02-12 03:54 | XMS_ITS | Encounter Summary ---
Author Organization [facility] Address [address] [place] [address] Phone Care Team Providers Care Pastry Finisher Name Role Phone Maria Ines Garrido MD Primary Care Provider [phone] Encounter Details Date Type Department Care Team (Late st Contact Info) Description 12/30/2021 Telephone [facility] Gastroenterology On license of [facility] [address] [place] [address] [place] [address] Kimberly Jordan, JUNIE Social History Tobacco Use Types Packs/Day [...] Refills Last Filled Start Date End Date LORazepam (ATIVAN) 0.5 mg tabletIndications: claustrophobia Take 0.5mg orally x 1 20-30 minute prior to arrival for MRI. Can repeat 0.5mg orally x 1 after checking in for MRI if needed 2 tablet 01/02/2022 3 documented in this encounter Miscellaneous Notes * Telephone Encounter - Kimberly Jordan RN - 01/02/2022 2:08 PM CST Spoke with pt. Verified she has ride for her MRI 02/09/22. Instructed her to take 0.5mg lorazepam orally 20-30 min prior to arrival for MRI and can repeat if needed after checking in/signing consent.Sent to [employer] in [place] and called in as well under Dr Lozoya name. Asked pt to call backif any further questions. OSITE BOND TECHNICIAN * Telephone Encounter - Kimberly Jordan RN - 12/30/2021 10:53 AM COMPOSITE BOND TECHNICIAN Left message on pt voicemail requesting she call back to discuss lorazepam for MRI/MRCP ----- Message from Tigre Lozoya MD sent at 12/30/2021 10:23 AM COMPOSITE BOND TECHNICIAN ----- Sounds good to me. I would differ to you (i.e. I will sign either), but instead of xanax, I like to do lorazepam 0.5 mg #2 (the first to be taken upon getting in the car to be driven to the MR, and the second to be taken and held under the tongue to let is dissolve slowly upon checking into the MR desk) ----- Message ----- From: Latrice Freedman NP Sent: 12/30/2021 9:53 AM COMPOSITE BOND TECHNICIAN To: Kimberly Jordan RN, MD Dr. Devora Werner - are you okay with us calling in alprazolam for claustrophobia pre- MRI under you? Would do 0.5 mg 30-90 minutes before MRI unless you prefer something else. figure model cant prescribe controlledsubstances here in [place]. Thanks. ----- Message ----- From: Kimberly Jordan RN Sent: 12/09/2021 8:53 AM COMPOSITE BOND TECHNICIAN To: Latrice Freedman NP Pt is scheduled 02/09 locally. I don't mind calling in the pre med under different provider. Just let me know which colleague and what to call in as I will also want to call pt to give her instructions as well and verify she has bulk truck driver for test ----- Message ----- From: Latrice Freedman NP Sent: 12/08/2021 1:01 PM CDT To: Kimberly Jordan RN Liver pathology reviewed in conference. Shows steatosis, [...] colleagues send meds to her pharmacy. Thanks. OSITE BOND TECHNICIAN OSITE BOND TECHNICIAN documented in this encounter Plan of Treatment Not on file documented as of this encounter Visit Diagnoses Not on filedocumented in this encounter Care Teams Pastry Finisher Relationship Specialty Start Date End Date Maria Ines Garrido MD [address] [place] [id number] PCP - General Internal Medicine 07/14/21 02/28/22 documented as of this encounter
--- OUTSIDE RECORDS SUMMARY | 2024-02-12 03:54 | XMS_ITS | Encounter Summary ---
Author Organization [facility] [place] Address [address] [place] [address] Phone Care Team Providers Care Industrial Maintenance Millwright Name Role Phone Maria Ines Garrido MD Primary Care Provider Encounter Details Date Type Department Care Team (Late st Contact Info) Description 11/28/2021 Telephone [facility] Gastroenterology [facility] [address] [place] [address] [place] [phone] Kimberly Jordan RN Social History Tobacco Use [...] Telephone Encounter - Kimberly Jordan RN - 11/28/2021 10:26 AM CDT Spoke to pt and scheduled for fibroscan 12/02 11:45am at [facility]. Instructed to fast 3 hrs prior andprovided location address for pt. She verbalized understanding. Called [facility] ([phone]) and faxed request for liver biopsy slides from 01/09/17 be mailed to our pathology dept. ( Attn Fatou). Message sent to Ekaterina as well to add onto path conference once we receive slides. ----- Message from Latrice Freedman NP sent at 11/28/2021 9:25 AM CDT ----- Reviewed with Dr. Carreno: 1. Get the 2017 liver biopsy slides for review here and also get a FibroScan. 2. If the biopsy review looks like MACIAS, stop the UDCA 3. The study (like most studies now) require stage 2 fibrosis. If the FibroScan is >~9, then I can talk to her about screening for the study Mary - can you please obtain the slides? Will also need FibroScan. Placed order. Thank you! documented in this encounter Plan of Treatment Not on file documented as of this encounter Visit Diagnoses Not on filedocumented in this encounter Care Teams Industrial Maintenance Millwright Relationship Specialty Start Date End Date Maria Ines Garrido MD [address] [place] [id number] PCP - General Internal Medicine 07/14/21 02/28/22 documented as of this encounter
--- OUTSIDE RECORDS SUMMARY | 2024-02-12 03:54 | XMS_ITS | Encounter Summary ---
Author Organization [facility] [employer] [facility] Address [address] [place] [address] Phone Care Team Providers Care Loss Control Consultant Name Role Phone Maria Ines Garrido MD Primary Care Provider [phone] Encounter Details Date Type Department Care Team (Late st Contact Info) Description 12/01/2021 Orders Only [facility] Gastroenterology [address] 12th [place] [address] [place] [address] Martin Jordan RN Primary biliary cirrhosis (HCC) (Primary Dx) Social [...] as of this encounter Progress Notes * Martin Jordan RN - 12/01/2021 12:01 PM CDT Per pathology, liver slides arrived today. Surgical pathology orders placed. Latrice updated as well and message sent to Ekaterina to add to pathology conference next week documented in this encounter Plan of Treatment Not on file documented as of this encounter Results * Surgical pathology (12/01/2021 3:22 PM CDT) Tissue (Miscellaneous) 12/01/2021 3:22 PM CDT 12/01/2021 3:22 PM CDT Narrative [facility] - 12/06/2021 2:46 PM CDT EPIC results best viewed via link to PDF [facility] Pathology Consult Service [address] , [address], [place] [address] Note to Patients: This report may contain a detailed description of human tissue sent by a health care provider to the laboratory for pathologic evaluation. The content of this report is essential for diagnosis and may provide important critical findings. This information may be unfamiliar to patients to review without a medical professional present. It is advised that the patient review this report in the presence of a health care provider who can answer questions and explain the details. SURGICAL PATHOLOGY REPORT * Consult Report * [facility] is providing an additional review of previously collected tissue. FINAL Patient Name: ??MARTIN JAVIER Address: ??[address] [place] [address], ?[place], [place] ??[address] Gender: ??F : ??1960 (Age: 61) Hospital #: ??[id number] Patient Type: ??WUIO Location: ??PVTOP Taken: ??12/01/2021 Received: ??12/01/2021 Accessioned: ??12/01/2021 Reported: ??12/06/2021 Physician(s): Harpreet Upton. [facility] Department of Pathology [address] [place] [address] P: [phone] F: [phone] Diagnosis: Consult material received from [place], [place] (OSC: [id number]; 01/09/2017). Liver, needle biopsy ? - Large portal tracts with fibrosis and focal absence of bile duct profiles (see comment) ? - Mild macrovesciular steatosis (30%), mild lobular inflammation, and no ballooned hepatocytes (KAREN score 2)- Mild fibrous expansion of portal tracts with focal sinusoidal fibrosis (trichrome) ? - No significant stainable iron ? - No evidence of alpha-1 antitrypsin deficiency by PAS-D erg/12/01/2021 16:49 By this signature, I attest that the above diagnosis is based upon my personal examination of the slides(and/or other material indicated in the diagnosis). Shannan Riojas MD Report Electronically Reviewed and Signed Out By Shannan Riojas MD 12/06/2021 14:46:34 Microscopic Description and Comment: There are a few large portal tracts with fibrosis and absence of bile duct profiles. This raises suspicion for a biliary issue. There are no granulomata or portal inflammation noted. Clinical correlation with MRCP findings and serology is recommended. This case was reviewed at the intradepartmental liver/GI consensus conference and they concur. Microscopic examination substantiates the above cited diagnosis. Delilah Rey M.D. History: The patient is a 61-year-old woman with history of priamry biliary cirrhosis. Materials Received: Received for review are seven slides labeled [id number], accompanied by a corresponding pathology report. The material originates from [place], [place]. Selected slide(s) may be digitally scanned for our files, and all materials are returned to the referring institution, along with a copy of our final report. Any testing required for diagnostic purposes was performed in the Department of Pathology and Immunology at [facility], [address] [place] [address] [place], [place] [facility] CLIA # [id number] The performance characteristics of the testing cited in this report (if any) were determined by the ??[facility] Department of Pathology and Immunology [facility], as part of an ongoing type disk quality control supervisor program and in compliance with federally mandated regulations drawn from the Clinical Laboratory Improvement Act of 1988 (CLIA '88). ??Some of these tests rely on the use of analyte specific reagents (ASR) and are subject to specific labeling requirements by the US Food and Drug Administration. ??Such diagnostic tests may only be performed in a facility that is certified by the Department of Health and Human Services as a high complexity laboratory under CLIA '88. ??The FDA has determined that such clearance or approval is not necessary. ??ASRs should not be regarded as investigational or for research. ??ASRs were developed and the performance characteristics determined by the [facility], [facility] Department of Pathology and Immunology. ??It has not been cleared or approved by the U.S. Food and Drug Administration. ??Any test designated as LDT was developed and its performance characteristics determined by [facility]. It has not been cleared or approved by the FDA. This test is used for clinical purposes and should not be regarded as investigational or for research. Report images and/or scanned reports, if included, only viewable in PDF version of report. Latrice Freedman METAL PICKLING EQUIPMENT OPERATOR LAB PATHOLOGY ORDERABLES Final Result [facility] [address] [address] documented in this encounter Visit Diagnoses Diagnosis Primary biliary cirrhosis (HCC)- Primary Biliary cirrhosis Primary biliary cirrhosis (HCC) Biliary cirrhosis documented in this encounter Care Teams Loss Control Consultant Relationship Specialty Start Date End Date Maria Ines Garrido MD [address] [place] [address] PCP - General Internal Medicine 07/14/21 02/28/22 documented as of this encounter
--- OUTSIDE RECORDS SUMMARY | 2024-02-12 03:54 | XMS_ITS | Encounter Summary ---
Author Organization [facility] Address [address] [place] [address] Phone Care Team Providers Care Mining Speculator Name Role Phone Maria Ines Garrido MD Primary Care Provider [phone] Encounter Details Date Type Department Care Team (Late st Contact Info) Description 12/01/2021 Orders Only [facility] [address] [place] [address] Mimi Freedman NP [address] [place] [address] Primary biliary cirrhosis (HCC) Social History Tobacco [...] Notes * Result Encounter Note - Mimi Freedman NP - 12/08/2021 1:01 PM CDT Liver pathology reviewed in conference. Shows steatosis, [...] colleagues send meds to her pharmacy. Thanks. * Addendum Note - Mimi Freedman NP - 12/01/2021 3:18 PM CDTAddended by: MIMI FREEDMAN on: 12/08/2021 01:01 PM Modules accepted: Orders documented in this encounter Plan of Treatment Not on file documented as of this encounter Procedures Procedure Name Priority Date/Time Associated Diagnosis Comments SURGICAL PATHOLOGY Routine 12/01/2021 3: 22 PM CDT Primary biliary cirrhosis (HCC) documented in this encounter Results * Surgical pathology (12/01/2021 3:22 PM CDT) Tissue (Miscellaneous) 12/01/2021 3:22 PM CDT 12/01/2021 3:22 PM CDT Narrative [facility] - 12/06/2021 2:46 PM CDT EPIC results best viewed via link to PDF [facility] Pathology Consult Service Ajay [address], [place] [address] Note to Patients: This report [...] SURGICAL PATHOLOGY REPORT * Consult Report * [facility] is providing an additional review of previously collected tissue. FINAL Patient Name: ??MARTIN JAVIER Address: ??[address], ?[place], [place] ??[address] Gender: ??F : ??1960 (Age: 61) Hospital #: ??[id number] Patient Type: ??WUIO Location: ??PVTOP Taken: ??12/01/2021 Received: ??12/01/2021 Accessioned: ??12/01/2021 Reported: ??12/06/2021 Physician(s): Scott Upton [facility] Department of Pathology [address] [place] [address] ??[address] P: [phone] F: [phone] Diagnosis: Consult material received from [place], [place] (OSC: [id number]; 01/09/2017). Liver, needle biopsy ? - Large [...] Received for review are seven slides labeled [id number], accompanied by a corresponding pathology report. The material originates from [place], [place]. Selected slide(s) may be digitally scanned for our files, and all materials are returned to the referring institution, along with a copy of our final report. Any testing required for diagnostic purposes was performed in the Department of Pathology and Immunology at [facility], [address] [place] [address] CLIA # [id number] The performance characteristics of the testing cited in this report (if any) were determined by the ??[facility] Department of Pathology and Immunology [facility], as part of an ongoing quality control lab technician program and in compliance with federally mandated [...] and the performance characteristics determined by the [facility], [facility] Department of Pathology and Immunology. ??It has not been cleared or approved by the U.S. Food and Drug Administration. ??Any test designated as LDT was developed and its performance characteristics determined by [facility]. It has not been cleared or approved by the FDA. This test is used for clinical purposes and should not be regarded as investigational or for research. Report images and/or scanned reports, if included, only viewable in PDF version of report. Mimi Freedman NP LAB PATHOLOGY ORDERABLES Final Result [facility] [address] [address] documented in this encounter Visit Diagnoses Diagnosis Primary biliary cirrhosis (HCC) Biliary cirrhosis documented in this encounter Care Teams Mining Speculator Relationship Specialty Start Date End Date Maria Ines Garrido MD [address] [place] [address] PCP - General Internal Medicine 07/14/21 02/28/22 documented as of this encounter
--- OUTSIDE RECORDS SUMMARY | 2024-02-12 03:54 | XMS_ITS | Encounter Summary ---
Author Organization [facility] Address [address] [place] [address] Care Team Providers Care Code Enforcement Inspector Name Role Phone Maria Ines Garrido MD Primary Care Provider [phone] Reason for Visit * Reason Onset Date Comments Test Results 07/29/2021 Encounter Details Date Type Department Care Team ([facility] Contact Info) Description 07/29/[address] [facility] Primary Care [address] [address] Maria Ines Garrido MD [facility] [address] Test Results Social History Tobacco Use Types [...] Telephone Encounter - Aline Cr MA - 07/29/2021 1:21 PM CDT Patient called back and was informed. Agrees to plan. * Telephone Encounter - Aline Cr MA - 07/29/2021 10:26 AM CDT LVM for patient to call back. * Telephone Encounter - Aline Cr MA - 07/29/2021 10:25 AM CDT ----- Message from Maria Ines Garrido MD sent at 07/29/2021 9:48 AM CDT ----- Please let pt know we will talk about the remainder of her labs when I see her in a month, however her thyroid needs adjusting. Her dose is too high and this can be dangerous and cause an arrhythmia.I suggest she take half of her 175 mcg until she c an cone picker the new dose of 137 mcg/daily. SHe will need to check thyroid labs again in 4-6 weeks before she sees me so we can make sure this dose works. I sent the rx to her mailorder, but she may want it to go to a local pharmacy which is [facility] of [address]. documented in this encounter Plan of Treatment Not on file documented as of this encounter Visit Diagnoses Not on filedocumented in this encounter Care Teams Code Enforcement Inspector Relationship Specialty Start Date End Date Maria Ines Garrido MD [address] [place] [address] PCP - General Internal Medicine 07/14/21 02/28/22 documented as of this encounter
--- OUTSIDE RECORDS SUMMARY | 2024-02-12 03:54 | XMS_ITS | Encounter Summary ---
Author Organization [facility] Address [address] [place] [address] Care Team Providers Care Riveter Name Role Phone Krunal Dill MD Primary Care Provider [phone] Reason for Referral * Consultation (Routine) - Canceled Specialty Diagnoses / Procedures Referred By Contact Referred To Contact Hepatobiliary Surgery Diagnoses Fibromyalgia Krunal Dill MD [address] [place] [address] Phone: tel:[phone] fax:[phone] [facility] Department of Hepatobiliary, Pancreatic, & Gastrointestinal Surgery [address] [place] [address] 12th Floor, [place] [address] Phone: tel: fax: Referral ID Status Reason Start Date Expiration Date Visits Requested Visits Authorized [id number] Canceled Specialty Services Required 07/28/2021 08/27/2022 1 1 Question Answer Please select the performing region: External Order [171] # of visits: 1 Comments Establishing to area from [place], [place] Diagnosed with PBC- on urosdoil Reason for Visit * Reason Comments New Patient Transferring care du e to insurance. Encounter Details Date Type Department Care Team (Latest Contact Info) Description 07/28/2021 10:45 AM CDT Office Visit [facility] Primary Care [address] [place] [phone] Krunal Dill MD [address] [place] [phone] Essential (primary) hypertension; Hyperlipidemia, mixed; Acquired hypothyroidism; Non-toxic multinodular goiter; Other hydrocephalus (HCC); Type 2 diabetes mellitus without complication, without long-term current use of insulin (CMS/HCC) (HCC); Primary biliary cirrhosis (HCC); Fibromyalgia Social History Tobacco Use Types Packs/Day Years [...] Reading Time Taken Comments Blood Pressure 122/72 07/28/2021 11:15 AM CDT Pulse 64 07/28/2021 11:15 AM CDT Temperature - - Respiratory Rate - - Oxygen Saturation 98% 07/28/2021 11:15 AM CDT Inhaled Oxygen Concentration - - Weight 80.1 kg (176 lb 9.6 oz) 07/28/2021 11:15 AM CDT Height 162.6 cm (5' 4 ) 07/28/2021 11:15 AM CDT Body Mass Index 30.31 07/28/2021 11:15 AM CDT documented in this encounter Patient Instructions * Patient Instructions* Krunal Dill MD - 07/28/2021 11:54 AM CDT Recommendations for a healthy lifestyle: Drink at least 64 ounces of fresh water daily (not including juice, coffee, etc) Exercise where you get your heart rate up to 60%- 80% of your max (to calculate max heart rate, subtract your age from 220) for about 150 minutes per week! Never text and drive. Always wear a seatbelt. Aim for 7-8 hours of sleep a night. Limit caffeine to 100 mg (one cup of coffee) daily. Limit alcohol to maximum of 7 drinks weekly. Never drink and drive. I recommend a plant heavy diet high in vegetables, fruit and lean proteins like chicken and fish.Limit white carbohydrates and sugary products as much as possible. Limit eating out to once weekly So nice to see you today! Dr. Dill documented in this encounter Ordered Prescriptions Prescription Sig Dispense Quantity Refills Last Filled Start Date End Date traMADol ER (ULTRAM-ER) 300 mg 24 hr tablet Take 1 tablet (300 mg total) by mouth daily 30 tablet 2 07/28/2021 11/01/2021 documented in this encounter Progress Notes * Krunal Dill MD - 07/28/2021 10:45 AM CDT Images from the original note were not included. Patient ID: Kimberly Isabel is a 61 y.o. female. Chief Complaint. Chief Complaint Patient presents with ??? New Patient Transferring care due to insurance. HPI. Patient is a 61 y.o. female with many medical issues is here to establish after moving to the area from [place], [place] She brought labs: 08/10/2020, they are under media. HTN: Triamterene-hydrochlorothiazide, takes this everyday. Hypothyroidism: on levothyroxine 175 mcg. Had HERNANDEZ for Graves in mid s. TFTS that she brought in (scanned in media) TSH 1.622, Ft4 1.4 from 08/10/2020 On Sunday she takes a half pill Sunday She brought in thyroid us report and it shows nodule in the right lobe considered [id number] since anechoic- unchanged since 2017- almost certainly colloid nodule HL: lipitor atovastatin- DM: recently diagnosed with that 02/10/2021- 6.5 %, started on metformin , needs to see an eye doctor, has been over 3 yaers. Fibromyalgia: diagnosed in mid , ultracet. Long acting dialy helps with this. Has tried typical medications for fibro but she doesn't recall which ones but they made her gain a ton of weight. Pt states she had a ct scan with hydrocephalus? And this is why she is on triamterene-hctz.. she was seeing a neurousrgeon, they didn't want to do surgery. They instructed her to come back when its life-limiting . Has been 5 years since she saw a neurosurgeon. Primary biliary cirrhosis: diagnosed years ago. Gets periodic bx. Past Medical History: Diagnosis Date ??? Allergic ??? Arthritis ??? Diabetes mellitus (HCC) ??? Thyroid disease History reviewed. No pertinent surgical history. Allergies Allergen Reactions ??? Milnacipran Unknown ??? Trazodone Unknown ??? Vilazodone Unknown Social History Tobacco Use ??? Smoking status: Never Smoker ??? Smokeless tobacco: Never Used Substance Use Topics ??? Alcohol use: Not on file Family History Problem Relation Age of Onset ??? Cancer Mother ??? Other (Cerebrial Hemmorage) Father ??? Marion's disease Brother Dad when he was 30- cerebral hemorrhage. Current Medications: Outpatient Encounter Medications as of 07/28/2021 Medication Sig Dispense Refill ??? atorvastatin (LIPITOR) [...] the morning for swelling ??? levothyroxine (SYNTHROID) 175 mcg tablet Take 1 tablet by mouth daily ??? metFORMIN (GLUCOPHAGE) 500 mg tablet Take 1 tablet by mouth 2 (two) times a day ??? multivitamin tablet Take 1 tablet by mouth daily ??? triamterene-hydroCHLOROthiazide (triamterene-hydroCHLOROthiazide) 37.5-25 mg per tablet/capsuleTake 1 tablet by mouth daily ??? ursodioL (GENOVEVA FORTE) 500 mg tablet Take 500 mg by mouth 3 (three) times a day ??? [DISCONTINUED] traMADol ER (ULTRAM-ER) 300 mg 24 hr tablet Take 1 tablet by mouth daily ??? traMADol ER (ULTRAM-ER) 300 mg 24 hr tablet Take 1 tablet (300 mg total) by mouth daily 30 tablet 2 ??? [DISCONTINUED] traMADol ER (ULTRAM-ER) 300 mg 24 hr tablet Take 300 mg by mouth daily No facility-administered encounter medications on file as of 07/28/2021. Review of Systems: Review of Systems BP 122/72 (BP Location: Left arm, Patient Position: Sitting) Pulse 64 Ht 162.6 cm (5' 4 ) Wt 80.1 kg (176 lb 9.6 oz) SpO2 98% BMI 30.31 kg/m?? Physical Exam: Physical Exam Constitutional: Appearance: She is well-developed. HENT: Head: Normocephalic. Right Ear: External ear normal. Left Ear: External ear normal. Eyes: Conjunctiva/sclera: Conjunctivae normal. Pupils: Pupils are equal, round, and reactive to light. Cardiovascular: Rate and Rhythm: Normal rate and regular rhythm. Heart sounds: No murmur heard. No friction rub. Pulmonary: Effort: Pulmonary effort is normal. No respiratory distress. Breath sounds: Normal breath sounds. No wheezing or rales. Abdominal: General: Bowel sounds are normal. There is no distension. Palpations: Abdomen is soft. Tenderness: There is no abdominal tenderness. There is no guarding or rebound. Musculoskeletal: General: No tenderness. Normal range of motion. Cervical back: Normal range of motion and neck supple. Skin: General: Skin is warm and dry. Findings: No rash. Neurological: Mental Status: She is alert and oriented to person, place, and time. Deep Tendon Reflexes: Reflexes normal. Psychiatric: Behavior: Behavior normal. Thought Content: Thought content normal. Judgment: Judgment normal. Assessment & Plan: Diagnoses and all orders for this visit: Essential (primary) hypertension Assessment & Plan: Stable triamterene-hctz Orders: - Comprehensive metabolic panel; Future Hyperlipidemia, mixed - Lipid panel; Future Acquired hypothyroidism Assessment & Plan: On levothyroxine 175 mcg daily except Sunday she takes half a tablet Due for labs- ordered Orders: - TSH; Future - T4, free; Future Non-toxic multinodular goiter Assessment & Plan: US under media, done 09/24/2020- 1 r nodule likely benign colloid nodule Other hydrocephalus (HCC) Assessment & Plan: Pt states she had a ct scan with hydrocephalus? And this is why she is on triamterene-hctz.. she was seeing a neurousrgeon, they didn't want to do surgery. They instructed her to come back when its life-limiting . Has been 5 years since she saw a neurosurgeon. We need records at least from pcp. Type 2 diabetes mellitus without complication, without long-term current use of insulin (CMS/HCC) (HCC) - Hemoglobin A1c; Future Primary biliary cirrhosis (HCC) Assessment & Plan: Diagnosed a long time ago. Gets a biopsy every so often? Alkaline phosphatase. Itching all over-[facility] helps Liver doctor in [place]: Dr. Lopez Fibromyalgia Assessment & Plan: Was seeing Dr. PARISH in [facility] in [facility] before Stable on long acting ultracet, would cont Orders: - Ambulatory referral to Hepatology Other orders - traMADol ER (ULTRAM-ER) 300 mg 24 hr tablet; Take 1 tablet (300 mg total) by mouth daily Krunal Dill MD documented in this encounter Miscellaneous Notes * Assessment & Plan Note - Krunal Dill MD - 07/28/2021 11:47 AM CDT Associated Problem(s): Family history of Evangelina's disease Brother has this Its presumed dad (who at 30) had evangelina dx. She has been tested, and she thinks she was told she would never have [place] * Assessment & Plan Note - Krunal Dill MD - 07/28/2021 11:46 AM CDT Associated Problem(s): Fibromyalgia Was seeing Dr. PARISH in [facility] in [facility] before Stable on long acting ultracet, would cont * Assessment & Plan Note - Krunal Dill MD - 07/28/2021 11:41 AM CDT Associated Problem(s): Primary biliary cirrhosis (HCC) Diagnosed a long time ago. Gets a biopsy every so often? Alkaline phosphatase. [facility] in [place]: Dr. Lopez * Assessment & Plan Note - Krunal Dill MD - 07/28/2021 11:39 AM CDT Associated Problem(s): Other hydrocephalus (HCC) Pt states she had a ct scan with hydrocephalus? And this is why she is on triamterene-hctz.. she was seeing a neurousrgeon, they didn't want to do surgery. They instructed her to come back when its life-limiting . Has been 5 years since she saw a neurosurgeon. We need records at least from pcp. * Assessment & Plan Note - Krunal Dill MD - 07/28/2021 11:37 AM CDT Associated Problem(s): Essential (primary) hypertension Stable triamterene-hctz * Assessment & Plan Note - Krunal Dill MD - 07/28/2021 11:36 AM CDT Associated Problem(s): Non-toxic multinodular goiter US under media, done 09/24/2020- 1 r nodule likely benign colloid nodule * Assessment & Plan Note - Krunal Dill MD - 07/28/2021 11:35 AM CDT Associated Problem(s): Acquired hypothyroidism On levothyroxine 175 mcg daily except Sunday she takes half a tablet Due for labs- ordered * Addendum Note - Krunal Dill MD - 07/28/2021 10:45 AM CDTAddended by: KRUNAL DILL on: 07/29/2021 09:57 AM Modules accepted: Orders documented in this encounter Plan of Treatment Scheduled Referrals Name Type Priority Associated Diagnoses Order Schedule Ambulatory referral to Hepatology Outpatient Referral Routine Fibromyalgia Ordered: 07/28/2021 documented as of this encounter Results * (ABNORMAL) T4, free (09/08/2021 1:47 PM CDT) Free T4 2.11(H) 0.90 - 1.70 ng/dL Z[facility]OBIA Comment:Testing performed by : [address] [address] Blood 09/08/2021 1:47 PM CDT 09/08/2021 4:43 PM CDT Krunal Dill MD LAB BLOOD ORDERABLES Final Resu lt [facility] [address] [facility] Department [place] [address] * (ABNORMAL) TSH (09/08/2021 1:47 PM CDT) Thyroid Stimulating Hormone 0.17(L) 0.30 - 4.20 mcIUnit/mL [facility] Comment: Ref Range Low Testing performed by: [address] [address] Blood 09/08/2021 1:47 PM CDT 09/08/2021 4:43 PM CDT Krunal Dill MD LAB BLOOD ORDERABLES Edited Res ult - Final Performing Organization Address City/[facility] Co de Phone Number ZENOBIA [address] [facility] [place] [address] * (ABNORMAL) Hemoglobin A1c (07/28/2021 12:22 PM CDT) [facility] Hgb A1C 6.0(H) 4.0 - 5.6 % ZENOBIA SALINAS Comment:Testing performed by : [address] [address] Estimated Average Glucose 126 mg/dL Z[facility]OBIA Comment: The ADA recommends reporting an estimated Average Glucose (eAG) with all Hemoglobin A1c results using the equation derived from a study of 507 normal and diabetic adults. ??Minority populations were underrepresented and children were not included. ?? (Diabetes Care 31:4732-7886, 2008). ??The eAG is not equivalent to a fasting glucose. Testing performed by: [address] [address] Blood 07/28/2021 12:2 2 PM CDT 07/28/2021 2:02 PM CDT us Krunal Dill MD LAB BLOOD ORDERABLES Final Resu lt Performing Organization Address [facility] Co de Phone Number ZENOBIA [facility] [place] [address] * (ABNORMAL) Comprehensive metabolic panel (07/28/2021 12:22 PM CDT) [facility] Sodium 139 135 - 145 mmol/L ZENOBIA SALINAS Comment:Testing performed by : [address] [address] Potassium, pl 3.7 3.3 - 4.9 mmol/L ZENOBIA SALINAS Comment:Testing performed by : [address] [address] Chloride 99 97 - 110 mmol/L ZENOBIA SALINAS Comment:Testing performed by : [address] [address] CO2 29 22 - 32 mmol/L ZENOBIA SALINAS Comment:Testing performed by : [address] [place]., [address] Anion gap 11 2 - 15 mmol/L [facility] Comment:Testing performed by : [address] [address] BUN 11 8 - 25 mg/dL ZENOBIA Comment:Testing performed by : [address], [place]., [address] Creatinine 0.60 0.60 - 1.10 mg/dL ZENOBIA Comment:Testing performed by : [address] [address] Glucose 123 70 - 199 mg/dL [facility] Comment: Interpretive Data Fasting glucose >/= 126 [...] classification and Diagnosis of Diabetes Diabetes Care 2017;40 (Suppl. 1):S11. Current interpretive data was last revised 2016. Testing performed by: [address] [address] Calcium 10.3 8.5 - 10.3 mg/dL [facility]IA Comment:Testing performed by : [address] [address] Bilirubin, total 0.7 0.1 - 1.2 mg/dL [facility]OBIA Comment:Testing performed by : [address] [address] Protein, pl 7.6 6.5 - 8.5 g/dL [facility]OBIA Comment:Testing performed by : [address] [address] Albumin 4.5 3.5 - 5.0 g/dL [facility]OBIA Comment:Testing performed by : [address] [address] Alk phos 182(H) 40 - 130 Units/L [facility]IA Comment:Testing performed by : [address] [address] ALT 27 7 - 45 Units/L ZENOBIA SALINAS Comment:Testing performed by : [facility], [address] [place] [address]., [address] AST 42 10 - 45 Units/L ZENOBIA SALINAS Comment:Testing performed by : [facility], [address] [place] [address]., [address] Blood 07/28/2021 12:2 2 PM CDT 07/28/2021 2:02 PM CDT us Krunal Dill MD LAB BLOOD ORDERABLES Final Resu lt [facility]IA SALINAS [address] [facility] Department [place] [address] * Lipid panel (07/28/2021 12:22 PM CDT) Cholesterol 182 30 - 199 mg/dL ZENOBIA SALINAS Comment: Interpretive Data Ages < or = [...] last revised on 2017. Testing performed by: [address] [address] Triglycerides 87 <=149 mg/dL ZENOBIA SALINAS Comment: Interpretive Data Ages < or = [...] last revised on 2017. Testing performed by: [address] [address] HDL 58 >=40 mg/dL ZENOBIA SALINAS Comment: Interpretive Data Ages < or = [...] last revised on 2017. Testing performed by: [address] [address] LDL, calculated 107 <=129 mg/dL [facility]OBIA Comment: Interpretive Data Ages [...] last revised on 2017. Testing performed by: [address] [address] Non-HDL Cholesterol 124 mg/dL ZENOBIA SALINAS Comment: Interpretive Data Ages < or = [...] last revised on 2017. Testing performed by: [address] [address] Chol/HDL ratio 3 ZENOBIA SALINAS Comment:Testing performed by : [address] [address] Blood 07/28/2021 12:2 2 PM CDT 07/28/2021 2:02 PM CDT us Krunal Dill MD LAB BLOOD ORDERABLES Final Resu lt [facility] SALINAS [address] [facility] Department [place] [address] * (ABNORMAL) T4, free (07/28/2021 12:22 PM CDT) [facility] Free T4 2.19(H) 0.90 - 1.70 ng/dL ZENOBIA SALINAS Comment:Testing performed by : [address] [address] Blood 07/28/2021 12:2 2 PM CDT 07/28/2021 2:02 PM CDT Krunal Dill MD LAB BLOOD ORDERABLES Final Resu lt Performing Organization Address City/[facility] Co de Phone Number ZENOBIA [address] Department [place] [address] * (ABNORMAL) TSH (07/28/2021 12:22 PM CDT) Thyroid Stimulating Hormone 0.03(L) 0.30 - 4.20 mcIUnit/mL [facility]IA Comment:Testing performed by : [address] [address] Blood 07/28/2021 12:2 2 PM CDT 07/28/2021 2:02 PM CDT us Krunal Dill MD LAB BLOOD ORDERABLES Final Resu lt Performing Organization Address City/[facility] Co de Phone Number ZENOBIA [address] [place] [address] documented in this encounter Visit Diagnoses Diagnosis Essential (primary) hypertension Unspecified essential hypertension Hyperlipidemia, mixed Mixed hyperlipidemia Acquired hypothyroidism Unspecified hypothyroidism Non-toxic multinodular goiter Nontoxic multinodular goiter Other hydrocephalus (HCC) Type 2 diabetes mellitus without complication, without long-term current use of insulin (CMS/HCC) (HCC) Primary biliary cirrhosis (HCC) Biliary cirrhosis Fibromyalgia Unspecified myalgia and myositis documented in this encounter Discontinued Medications Medication Sig Discontinue Reason Start Date End Da te traMADol ER (ULTRAM-ER) 300 mg 24 hr tablet Take 300 mg by mouth daily Duplicate order 07/14/2021 07/28/2021 traMADol ER (ULTRAM-ER) 300 mg 24 hr tablet Take 1 tablet by mouth daily Reorder 07/23/2018 07/28/2021 documented as of this encounter Historical Medications * This list may reflect changes made after this encounter. cetirizine (ZyrTEC) 10 mg tablet Take 1 tablet (10 mg total) by mouth daily cholecalciferol (VITAMIN D-3) 25 mcg (1,000 unit) tablet Take 1 tablet (1,000 Units total) by mouth daily multivitamin tablet Take 1 tablet by mouth daily ursodioL (GENOVEVA FORTE) 500 mg tablet Take 500 mg by mouth 3 (three) times a day 07/22/2018 2 triamterene-hyd roCHLOROthiazid e (triamterene-hy droCHLOROthiazi de) 37.5-25 mg per tablet/capsule Take 1 tablet by mouth daily 07/29/2018 2 traMADol ER (ULTRAM-ER) 300 mg 24 hr tablet Take 1 tablet by mouth daily 07/23/2018 2 traMADol ER (ULTRAM-ER) 300 mg 24 hr tablet Take 300 mg by mouth daily 07/14/2021 2 metFORMIN (GLUCOPHAGE) 500 mg tablet Take 1 tablet by mouth 2 (two) times a day 09/24/2020 2 levothyroxine (SYNTHROID) 175 mcg tablet Take 1 tablet by mouth daily 01/31/2021 2 furosemide (LASIX) 20 mg tablet see administration instructions. Take one tablet 2-3 days per week in the morning for swelling 09/16/2020 3 clobetasoL (TEMOVATE) 0.05 % ointment Apply topically 4 atorvastatin (LIPITOR) 10 mg tablet Take 10 mg by mouth daily 08/25/2019 2 added in this encounter Care Teams Riveter Relationship Specialty Start Date End Date Krunal Dill MD [address] [place] [address] PCP - General Internal Medicine 07/14/21 02/28/22 documented as of this encounter
--- OUTSIDE RECORDS SUMMARY | 2024-02-12 03:54 | XMS_ITS | Encounter Summary ---
Author Organization [facility] Address [address] [facility] [address] [place] [address] Care Team Providers Care Software Sales Manager Name Role Phone Maria Ines Garrido MD Primary Care Provider [phone] Encounter Details Date Type Department Care Team ([facility] st Contact Info) Description 10/13/2021 Telephone [facility] Primary Care [address] [phone] Maria Ines Garrido MD [facility] [address] Social History Tobacco Use Types [...] Refills Last Filled Start Date End Date ursodioL (GENOVEVA FORTE) 500 mg tablet Take 1 tablet (500 mg total) by mouth 3 (three) times a day 90 tablet 10/13/2021 11/08/2021 documented in this encounter Miscellaneous Notes * Telephone Encounter - EdwarCarol lind - 10/13/2021 3:43 PM CDT Medication Refill: Patient's Last Visit: 08/13/21 Patient's Next Visit: 03/01/22 Medications: ursodioL (GENOVEVA FORTE) 500 mg tablet [facility]: [facility] [employer] [employer] ([email or web address] Mail service documented in this encounter Plan of Treatment Not on file documented as of this encounter Visit Diagnoses Not on filedocumented in this encounter Discontinued Medications Medication Sig Discontinue Reason Start Date End Da te ursodioL (GENOVEVA FORTE) 500 mg tablet Take 1 tablet (500 mg total) by mouth 3 (three) times a day Reorder 09/01/2021 10/13/2021 documented as of this encounter Care Teams Software Sales Manager Relationship Specialty Start Date End Date Maria Ines Garrido MD [address] [place] [id number] PCP - General Internal Medicine 07/14/21 02/28/22 documented as of this encounter
--- OUTSIDE RECORDS SUMMARY | 2024-02-12 03:54 | XMS_ITS | Encounter Summary ---
Author Organization [facility] Address [address] [facility] [address] [place] [address] Care Team Providers Care Social Media Director Name Role Phone James Gentile MD Primary Care Provider [phone] Reason for Referral * Diagnostic Imaging (Routine) - Closed Specialty Diagnoses / Procedures Referred By Bretac t Referred To Contact Diagnoses History of hydrocephalus Procedures XR Lumbar Spine Complete [facility] Si[facility] [address] [place] [address] Phone: tel: fax: [address] [phone] Referral ID Status Reason Start Date Expiration Date Visits Re quested Visits Authorized [id number] Closed 04/18/2022 05/18/2023 1 1 PLOYMENT EXAMINER * Diagnostic Imaging (Routine) - Closed Specialty Diagnoses / Procedures Referred By Contac t Referred To Contact Diagnoses History of hydrocephalus Procedures Fluoro Guided Lumbar Puncture for Cisternogram Case Bucio Si, MD [address] [place] [address] [address] [place] [address] Phone: tel: fax: [address] [phone] Referral ID Status Reason Start Date Expiration Date Visits Re quested Visits Authorized [id number] Closed 04/18/2022 05/18/2023 1 1 PLOYMENT EXAMINER * Diagnostic Imaging (Routine) - Closed Specialty Diagnoses / Procedures Referred By Charisse schulz Referred To Contact Diagnoses History of hydrocephalus Procedures NM Cisternogram Case Bucio Si, MD [address] [place] [address] Phone: tel: fax: [address] [phone] Referral ID Status Reason Start Date Expiration Date Visits Re quested Visits Authorized [id number] Closed 04/18/2022 05/18/2023 5 5 PLOYMENT EXAMINER * MRI/CAT/PET Scan (Routine) - Closed Specialty Diagnoses / Procedures Referred By Charisse schulz Referred To Contact Radiology Diagnoses History of hydrocephalus Procedures CT Head WO Contrast Case Bucio Si, MD [address] [place] [address] Phone: tel: fax: [address] [phone] Referral ID Status Reason Start Date Expiration Date Visits Re quested Visits Authorized [id number] Closed 04/18/2022 05/18/2023 1 1 PLOYMENT EXAMINER Reason for Visit * Reason Comments New Patient * Consultation (Routine) - Closed Specialty Diagnoses / Procedures Referred By Charisse schulz Referred To Contact Neurology Diagnoses History of hydrocephalus James Gentile MD [address] [address] Phone: tel: fax: Case Bucio Si, MD Phone: tel: fax: Referral ID Status Reason Start Date Expiration Date V isits Requested Visits Authorized [id number] Closed Specialty Services Required 03/01/2022 03/31/2023 12 12 Encounter Details Date Type Department Care Team (Late st Contact Info) Description 04/18/2022 2:00 PM UNEMPLOYMENT EXAMINER Office Visit [facility] Neurology [address] [facility] [address] [place] [address] Case Bucio Si, MD [address] [place] [address] History of hydrocephalus (Primary Dx) Social History Tobacco Use Types [...] Sign Reading Time Taken Comments Blood Pressure 142/84 04/18/2022 2:08 PM UNEMPLOYMENT EXAMINER Pulse 64 04/18/2022 2:08 PM UNEMPLOYMENT EXAMINER Temperature 36.5 ??C (97.7 ??F) 04/18/2022 2:08 PM CS T Respiratory Rate 20 04/18/2022 2:08 PM UNEMPLOYMENT EXAMINER Oxygen Saturation 99% 04/18/2022 2:08 PM UNEMPLOYMENT EXAMINER Inhaled Oxygen Concentration - - Weight 89.7 kg (197 lb 12.8 oz) 04/18/2022 2:08 PM UNEMPLOYMENT EXAMINER Height 162.6 cm (5' 4 ) 04/18/2022 2:08 PM UNEMPLOYMENT EXAMINER Body Mass Index 33.95 04/18/2022 2:08 PM UNEMPLOYMENT EXAMINER documented in this encounter Progress Notes * Case Bucio Si, MD - 04/18/2022 2:00 PM CST Images from the original note were not included. Patient ID: Kimberly Isabel is a 62 y.o. female Kimberly Isabel is being seen as a new consult at the request of James Gentile MD For hydrocephalus. History of Present Illness: 62 year old woman with history of DM, hypothyroidism, HTN and primary biliary cirrhosis presents for further evaluation of hydrocephalus. She was known to have hydrocephalus for about 6 yrs. She did CTH that time after having headache while she was lying down. She was then followed up with neurosurgery and started on diuretics and discussed on EVD if her symptoms got worse. She then followed up with neurologist. Her headache got resolved. She lost follow up with neurosurgeon after that. She used to follow her physicians in spring and now she has moved and her new PCP wanted to evaluate on that. She always has issue with learning, cognitive slowing and poor memory recall for several years. Shehas urge inconvenience but she is not sure if it is related to diuretics. She could hold her urine if she makes it fast enough to bathroom. No bowel incontinence. No issue with balance. In her 30s, she has multiple neurological symptoms and got MRI and repeated EMG/NCV due to paresthesia in face and extremities, jerking of her muscles and pain. She was told to have fibromyalgia after all the repeated workups. There was no reported hydrocephalus during workup that time. She is extremely claustrophobic and got traumatize with the experience after going through all the process of open MRI with sedation. She couldn't lie down on MRI at all. Review of Systems As above. All other systems were reviewed and found to be normal or non-contributory. Past Medical History: Diagnosis Date Allergic Arthritis Autoimmune disease (CMS/HCC) (HCC) Diabetes mellitus (HCC) Thyroid disease Past Surgical History: Procedure Laterality Date BREAST BIOPSY Left Family History Problem Relation Age of Onset Cancer Mother Other (Cerebrial Hemmorage) Father Hardin's disease Brother Social History Tobacco Use Smoking status: Never Smokeless tobacco: Never Substance and Sexual Activity Drug use: Never Sexual activity: Not Currently Alcohol Use: Unknown Frequency of Alcohol Consumption: Monthly or less Average Number of Drinks: Not on file Frequency of Binge Drinking: Not on file Allergies Allergen Reactions Milnacipran Unknown Trazodone Unknown Vilazodone Unknown Current Outpatient Medications Medication Sig Dispense Refill buPROPion XL (WELLBUTRIN XL) 150 mg 24 hr tablet Take 1 tablet (150 mg total) by mouth every morning 90 tablet 3 cetirizine (ZyrTEC) 10 mg tablet Take 10 [...] 3 TIMES A DAY 270 tablet 0 No current facility-administered medications for this visit. Physical Exam Vitals BP 142/84 (BP Location: Left arm, Patient Position: Sitting) Pulse 64 Temp 36.5 ??C (97.7 ??F) (Temporal) Resp 20 Ht 162.6 cm (5' 4 ) Wt 89.7 kg (197 lb 12.8 oz) SpO2 99% BMI 33.95 kg/m?? Neurological exam: Constitutional: Appears well and in no acute distress Mental Status: Alert and oriented times three, slow processing, Normal comprehension, Good attention, no visuospatial disorientation, no extinction/neglect, Fund of knowledge is appropriate, poor recall Cranial Nerves: pupils are equal, round, and reactive to light, Extraocular movements are intact, visual field full, face symmetric, facial sensation intact, palate rise symmetric, TPZ symmetric, tongue midline, no atrophy or fasciculations Motor: Normal bulk and tone noted. No pronator drift. Strength: 5/5 throughout in both proximal and distal muscles Sensory: Intact to LT, temperature and prop bilat Reflexes: brisk reflexes throughout Gait: Intact with good heel, toe and unsteady tandem walking Coordination: Good FNF, No obvious invol mvmts Romberg's negative Hba1c 6.0 Assessments and Plan 62 year old woman with history of hydrocephalus presents with longstanding history of memory dysfunction, and urge incontinence. She has seen neurosurgery 6 yrs ago but lost of follow up. Neuro exam shows slow cognition with poor recall, brisk reflexes throughout with decreased vibration sense at ankles and unsteady tandem gait. -will get CTH -will proceed with cisternogram -spine XR before LP -CSF for cell count protein, glu and VDRL -B12, MMA, TSH in setting of memory dysfunction RTC 3 mths Case Bucio MD Neurology Cc:James Gentile MD My total encounter time on 04/18/2022 was 55 minutes which was spent in the activities documented in the note. This includes time spent prior to the visit and after the visit in direct care of the patient. This time does not include time spent in any separately reportable services. PLOYMENT EXAMINER documented in this encounter Plan of Treatment Not on file documented as of this encounter Results * NM Cisternogram (05/04/2022 [...] D: ??05/05/2022 9:21 AM T: Report ID: [id number] Reading Location: ??[id number] Procedure Note Jesu Montiel MD - 05/05/2022 [...] by Jesu Montiel M.D. T: Report ID: [id number] Reading Location: [id number] [facility] Keturah Bucio MD IMG NM PROCEDURES Final Result * Fluoro Guided Lumbar Puncture for Cisternogram [...] was obtained from the patient or patient in home sales representative after risks and benefits were [...] D: ??05/01/2022 1:15 PM T: Report ID: [id number] Reading Location: ??[id number] Procedure Note Jez Dolan MD - 05/01/2022 EXAM DESCRIPTION: FL FLUORO GUIDED LUMBAR PUNCTURE REASON FOR STUDY: hydrocephalus COMPARISON: None available RADIATION DOSE: Dose: 1.9 mGy Reference Air Kerma (Ka,r) TECHNIQUE: Fluoroscopy guided diagnostic lumbar puncture for subsequent cisternogram. PROCEDURE/FINDINGS: Informed written consent was obtained from the patient or patient in home sales representative after risks and benefits were [...] Jez Dolan M.D. AG T: Report ID: [id number] Reading Location: [id number] [facility] Keturah Bucio MD IM FLUOROSCOPY PROCEDURES Final Result * VDRL, CSF CSF (05/01/2022 10:37 AM CDT) VDRL CSF Negative Negative ZENOBIA Comment: Test Performed by: [facility] [address] [place] [address] Marketing Production Coordinator: Shree Rhodes M.D. Ph.D.; IA# [id number] CSF 05/01/2022 10:3 7 AM CDT 05/01/2022 10:37 AM CDT Case Bucio MD LAB MICROBIOLOGY - GENERAL ORDER CHRIS Final Result Performing Organization Address [facility] de Phone Number [address] [address] * Glucose, CSF (05/01/2022 10:20 AM CDT) [facility] Glucose, CSF 79 mg/dL ZENOBIA Comment: Reference Interval Information: CSF Glucose should be 60-66% of the most current plasma glucose concentration (milligrams/deciliter) CLIN. CHEM. 41/3, 343-360 (1994), Clinical Utility of Biochemical Analysis of Cerebrospinal Fluid, Jared Zamorano and Ramos Landeros. Current interpretive data was last revised on 2018. CSF 05/01/2022 10:2 0 AM CDT 05/01/2022 10:36 AM CDT Case uBcio MD LAB BODY FLUIDS AND STOOLS ORDER CHRIS Final Result Performing Organization Address City/[facility] Co de Phone Number [address] [place] [address] * (ABNORMAL) Protein, total, CSF (05/01/2022 10:20 AM CDT) [facility] Protein, CSF 49(H) 5 - 45 mg/dL ZENOBIA CSF 05/01/2022 10:2 0 AM CDT 05/01/2022 10:36 AM CDT us Case Bucio MD LAB BODY FLUIDS AND STOOLS ORDER CHRIS Final Result ZENOBIA [address] [facility] [place] [address] * XR Lumbar Spine Complete (04/25/2022 10:36 [...] facet osteoarthritis. ??Arterial atherosclerosis is present. IMPRESSION: Qnuo-fq-pqfiorbu L1-L5 degenerative disc disease, greatest at L2-L3. THIS IS AN ELECTRONICALLY VERIFIED FINAL REPORT 04/26/2022 6:59 AM - Electronically signed by ??Raman Huizar M.D. MF: LUCY D: ??04/26/2022 6:59 AM T: ??04/26/2022 6:59 AM Report ID: [id number] Reading Location: ??[id number] Procedure Note Raman Huizar MD - 04/26/2022 EXAM DESCRIPTION: XR SPINE LUMBAR 6 OR MORE VIEWS REASON FOR STUDY: Lumbar spondylosis. FINDINGS: 7 views submitted without comparison. There are no fractures. There is mild L1-L2, moderate L2-L3 and mildL3-L5 degenerative disc disease. Flexion-extension views demonstrate noabnormal translation. There is mild inferior lumbar facet osteoarthritis.Arterial atherosclerosis is present. IMPRESSION: Tjro-xn-alsqntoy L1-L5 degenerative disc disease, greatest at L2-L3. THIS IS AN ELECTRONICALLY VERIFIED FINAL REPORT 04/26/2022 6:59 AM - Electronically signed by Raman Huizar M.D. MF: LUCY Report ID: [id number] Reading Location: [id number] Case Bucio MD IMG XR PROCEDURES Final Result * CT Head WO Contrast (04/25/2022 10:15 [...] 8:56 AM - Electronically signed by ??Mary Paez M.D. LC: J CARLOS D: ??04/26/2022 8:56 AM T: ??04/26/2022 8:56 AM Report ID: [id number] Reading Location: ??[id number] Procedure Note Donya Paez MD - 04/26/2022 [...] 8:56 AM - Electronically signed by Mary Paez M.D. LC: J CARLOS Report ID: [id number] Reading Location: [place] [address] Case Bucio MD IMG CT PROCEDURES Final Result * aPTT (04/18/2022 3:18 PM UNEMPLOYMENT EXAMINER) aPTT 30 22 - 37 sec ZENOBIA SALINAS Comment: Interpretive data aPTT test has not been evaluated for monitoring heparin therapy. The anti-Xa is the preferred test. Current interpretive data was last revised on 2019. Blood 04/18/2022 3:18 PM UNEMPLOYMENT EXAMINER 04/18/2022 5:19 PM UNEMPLOYMENT EXAMINER Case Bucio MD LAB BLOOD ORDERABLES Final Resul t ZENOBIA SALINAS [address] [facility] [place] [address] * Protime-INR (04/18/2022 3:18 PM UNEMPLOYMENT EXAMINER) PT 13.2 12.0 - 14.6 sec [facility] INR 1.0 0.9 - 1.2 [facility] Comment: Ref Range High Interpretive data Oral anticoagulant therapeutic ranges: Venous thromboembolism prophylaxis or treatment: 2.0-3.0 CARDIOLOGY Standard range: 2.0-3.0 High-intensity range: 2.5-3.5 Refer to indication-specific guidelines for appropriate target ranges for prosthetic heart valve replacement. Current interpretive data was last revised on 2019. Blood 04/18/2022 3:18 PM UNEMPLOYMENT EXAMINER 04/18/2022 5:19 PM UNEMPLOYMENT EXAMINER Case Bucio MD LAB BLOOD ORDERABLES Final Resul t [place] [id number] [facility] [place] [address] * CBC with auto differential (04/18/2022 3:18 PM UNEMPLOYMENT EXAMINER) WBC 6.5 3.8 - 9.9 K/cumm [facility] Hgb 12.9 11.9 - 15.5 g/dL [facility] Hct 38.1 35.6 - 45.5 % [facility] Plt 354 150 - 400 K/cumm [facility] MPV 11.2 9.1 - 12.3 fL [facility] RBC 4.27 3.90 - 5.20 M/cumm [facility] MCV 89.2 81.3 - 96.4 fL [facility] MCH 30.2 27.1 - 33.3 pg [facility] MCHC 33.9 32.3 - 35.7 g/dL [facility] RDW CV 12.9 11.1 - 14.9 % [facility] RDW SD 42.1 35.7 - 48.1 fL [facility] NRBC abs 0.00 0.00 - 0.01 K/cumm [facility] Blood 04/18/2022 3:18 PM UNEMPLOYMENT EXAMINER 04/18/2022 5:19 PM UNEMPLOYMENT EXAMINER us Case Bucio MD LAB BLOOD ORDERABLES Final Resul t [facility] [address] [facility] [place] [address] * Protein electrophoresis with reflex, serum (04/18/2022 3:18 PM UNEMPLOYMENT EXAMINER) Protein, sr 6.8 6.2 - 8.2 g/dL ZENOBIA Comment:Testing performed by : [facility], [address] [place] [address], [address] Albumin 4.0 3.2 - 5.0 g/dL ZENOBIA Comment:Testing performed by : [facility], [address] [place] [address], [address] Alpha-1 globulin 0.3 0.2 - 0.4 g/dL ZENOBIA Comment:Testing performed by : [facility], [address] [place] [address], [address] Alpha-2 globulin 0.8 0.5 - 1.0 g/dL ZENOBIA Comment:Testing performed by : [facility], [address] [place] [address]., [address] Beta-1 globulin 0.5 0.3 - 0.6 g/dL ZENOBIA Comment:Testing performed by : [facility], [address] [place] [address], [address] Beta-2 globulin 0.5 0.2 - 0.6 g/dL ZENOBIA Comment:Testing performed by : [facility], [address] [place] [address], [address] Gamma globulin 0.8 0.5 - 1.7 g/dL ZENOBIA Comment:Testing performed by : [facility], [address] [place] [address], [id number] SPEP interp Please see comment ZENOBIA SALINAS Comment: No apparent monoclonal peak See immunotyping for further information Reviewed and signed by Omero Stevens MD, PhD 04/19/2022 Testing performed by: [facility], [address] [place]., [address] Immunotyping See Immunotyping Results ZENOBIA Comment:Testing performed by : [facility], [address] [place]., [address] Blood 04/18/2022 3:18 PM UNEMPLOYMENT EXAMINER 04/18/2022 10:03 PM UNEMPLOYMENT EXAMINER Case Bucio MD LAB BLOOD ORDERABLES Final Resul t Performing Organization Address City/[facility] Co de Phone Number ZENOBIA [address] [place] [address] * Methylmalonic acid, serum (04/18/2022 3:18 PM UNEMPLOYMENT EXAMINER) MMA 0.25 <=0.40 nmol/mL ZENOBIA Comment: ADDITIONAL INFORMATION This test was developed and its performance characteristics determined by [facility] in a manner consistent with CLIA requirements. This test has not been cleared or approved by the U.S. Food and Drug Administration. Test Performed by: [facility] [address] [address] Marketing Production Coordinator: Shree Rhodes M.D. Ph.D.; CLIA# [id number] Blood 04/18/2022 3:18 PM UNEMPLOYMENT EXAMINER 04/18/2022 5:19 PM UNEMPLOYMENT EXAMINER Case Bucio MD LAB BLOOD ORDERABLES Final Resul t Performing Organization Address City/[facility] Co de Phone Number [address] [place] [address] * Vitamin B12 (04/18/2022 3:18 PM UNEMPLOYMENT EXAMINER) Vitamin B12 441 230 - 1,250 pg/mL ZENOBIA Blood 04/18/2022 3:18 PM UNEMPLOYMENT EXAMINER 04/18/2022 5:19 PM UNEMPLOYMENT EXAMINER Case Bucio MD LAB BLOOD ORDERABLES Final Resul t Performing Organization Address City/[facility]/ZIP Co de Phone Number ZENOBIA [address] [place] [address] * (ABNORMAL) TSH (04/18/2022 3:18 PM UNEMPLOYMENT EXAMINER) Thyroid Stimulating Hormone 5.54(H) 0.30 - 4.20 mcIUnit/mL [facility] Blood 04/18/2022 3:18 PM UNEMPLOYMENT EXAMINER 04/18/2022 5:19 PM UNEMPLOYMENT EXAMINER Case Bucio MD LAB BLOOD ORDERABLES Final Resul t Performing Organization Address [facility] Co de Phone Number [address] [place] [address] documented in this encounter Visit Diagnoses Diagnosis History of hydrocephalus- Primary Other personal history of disorders of nervous system and sense organs History of hydrocephalus Other personal history of disorders of nervous system and sense organs History of hydrocephalus Other personal history of disorders of nervous system and sense organs History of hydrocephalus Other personal history of disorders of nervous system and sense organs History of hydrocephalus Other personal history of disorders of nervous system and sense organs documented in this encounter Orders Outpatient Referral Count Last Ordered Date Fir st Ordered Date AMB REFERRAL TO NEUROLOGY 1 04/18/2022 documented in this encounter Care Teams Social Media Director Relationship Specialty Start Date End Date James Gentile MD [address] [place] [address] PCP - General Internal Medicine 03/01/22 01/17/24 documented as of this encounter
--- OUTSIDE RECORDS SUMMARY | 2024-02-12 03:54 | XMS_ITS | Encounter Summary ---
Author Organization [facility] [employer] of [facility] Address [address] [place] [address] Phone Care Team Providers Care Brush Cleaner Name Role Phone Maria Ines Garrido MD Primary Care Provider [phone] Reason for Visit * Consultation (Routine) - Closed Specialty Diagnoses / Procedures Referred By Contac t Referred To Contact Hepatobiliary Surgery Diagnoses Primary biliary cirrhosis (HCC) Maria Ines Garrido MD [facility] [address] Phone: tel: fax: [facility] (All Locations) Referral ID Status Reason Start Date Expiration Date V isits Requested Visits Authorized [id number] Closed Specialty Services Required 09/08/2021 10/09/2023 1 1 Encounter Details Date Type Department Care Team (Late st Contact Info) Description 11/24/2021 3:00 PM CDT Office Visit [facility] Gastroenterology [address] [facility] [address] [facility] [address] 12th [place] [address] [place] [address] Mimi Freedman NP [address] [place] [address] Primary biliary cirrhosis (HCC) (Primary Dx) Social [...] Sign Reading Time Taken Comments Blood Pressure 137/89 11/24/2021 2:53 PM CDT Pulse 80 11/24/2021 2:53 PM CDT Temperature 36.4 ??C (97.6 ??F) 11/24/2021 2:53 PM CD T Respiratory Rate - - Oxygen Saturation - - Inhaled Oxygen Concentration - - Weight 84 kg (185 lb 3.2 oz) 11/24/2021 2:53 PM CDT Height 162.6 cm (5' 4 ) 11/24/2021 2:53 PM CDT Body Mass Index 31.79 11/24/2021 2:53 PM CDT documented in this encounter Patient Instructions * Patient Instructions* Mimi Freedman NP - 11/24/2021 3:00 PM CDT It was nice to see you in clinic today and I appreciate you putting your trust in my care. If you had any lab tests or imaging studies today that we did not review in clinic, I will be either mailingor calling you with the results within the next two weeks. If you sign up for [employer], I can also post notes to you on that platform. If any further questions arise, please do not hesitate to contact my office with any questions. documented in this encounter Progress Notes * Mimi Freedman NP - 11/24/2021 3:00 PM CDT HEPATOLOGY CLINIC VISIT Kimberly Isabel Age: 61 y.o. Date of : 1960 Reason for Visit: PBC History of Present Illness: Kimberly Isabel is a 61 y.o. female who was referred for PBC. She has a PMH of HTN, HLD, T2DM, hypothyroidism. Patient was previously being managed by GI in [place] and is now wishing to establishcare here. She reports she was diagnosed with PBC several years ago and has been on ursodiol 500 mgthree times daily since then. In July, she did go a period of a few weeks without taking ursodiol due to lapse in care and changing providers. Labs 07/28/21: ALT 27, AST 42, alk phos 182. Her last colonoscopy was 09/23/20 that showed one polyp. Patient feels well overall. Her only complaint is constipation when she takes tramadol. For pruritis, she takes zyrtec which provides relief. She does not ward ve any abdominal pain, nausea, vomiting, diarrhea, or other abnormal symptoms at this time. I reviewed patient's active problem list, medication list, allergies, family history, social history, health maintenance Patient Active Problem List Diagnosis Acquired hypothyroidism Essential (primary) hypertension Hyperlipidemia, mixed Non-toxic multinodular goiter Other hydrocephalus (HCC) Primary biliary cirrhosis (HCC) Fibromyalgia Family history of [place]'s disease Preventative health care Past Medical History: Diagnosis Date Allergic Arthritis Diabetes mellitus (HCC) Thyroid disease History reviewed. No pertinent surgical history. Social History Tobacco Use Smoking status: Never Smokeless tobacco: Never Substance and Sexual Activity Drug use: None Sexual activity: None Alcohol Use: Unknown Frequency of Alcohol Consumption: Monthly or less Average Number of Drinks: Not on file Frequency of Binge Drinking: Not on file Family History Problem Relation Age of Onset Cancer Mother Other (Cerebrial Hemmorage) Father [place]'s disease Brother Current Outpatient Medications Medication Sig [...] HPI; all other systems negative. Objective: BP 137/89 Pulse 80 Temp 36.4 ??C (97.6 ??F) Ht 162.6 cm (5' 4 ) Wt 84 kg (185 lb 3.2 oz) BMI 31.79 kg/m?? General: Well-developed female in NAD. HEENT: [...] obvious rashes or lesions noted. Data Review No results found for: WBC, HGB, HCT, MCV, LABPLAT Lab Results Component Value Date GLUCOSE 123 07/28/2021 CALCIUM 10.3 07/28/2021 SODIUM 139 07/28/2021 POTASSIUM 3.7 07/28/2021 CO2 29 07/28/2021 CHLORIDE 99 07/28/2021 BUNSER 11 07/28/2021 CREATININE 0.60 07/28/2021 Lab Results Component Value Date ALT 27 07/28/2021 AST 42 07/28/2021 ALKPHOS 182 (H) 07/28/2021 BILITOT 0.7 07/28/2021 No results found for: INR, PROTIME Imaging: I reviewed patient's lab results, imaging Assessment/Plan: Primary biliary cirrhosis (HCC) Patient with PBC, reportedly diagnosed several years [...] return to clinic in 1 year. Mimi Freedman NP 11/25/2021 8:11 AM My total encounter time on 11/24/2021 was 26 minutes which was spent in the activities documented in the note. This includes time spent prior to the visit and after the visit in direct care of the patient. This time does not include time spent in any separately reportable services. documented in this encounter Miscellaneous Notes * Assessment & Plan Note - Mimi Freedman NP - 11/25/2021 8:07 AM CDT Associated Problem(s): Primary biliary cirrhosis (HCC) Patient with PBC, reportedly diagnosed several years [...] 1 year. * Addendum Note - Mimi Freedman NP - 11/24/2021 3:00 PM CDTAddended by: MIMI FREEDMAN on: 11/28/2021 09:25 AM Modules accepted: Orders documented in this encounter Plan of Treatment Scheduled Orders Name Type Priority Associated Diagnoses Orde r Schedule TSH reflex to free T4 Lab Routine Primary biliary cirrhosis (HCC) Expected: 11/24/2021, Expires: 11/24/2022 documented as of this encounter Results * Liver Elastography w/o Imaging W/I&R -[facility] (All Locations) (12/02/2021) Anatomical Region Laterality Modality Other Mimi Freedman NP GI PROCEDURE ORDERABLES Edited Result - Final * Mitochondrial antibodies, qualitative (11/24/2021 4:37 PM CDT) Anti-mitochond rial Negative Negative [facility] Blood 11/24/2021 4:37 PM CDT 11/24/2021 6:33 PM CDT Mimi Freedman PAYROLL TAX SPECIALIST LAB BLOOD ORDERABLES Fin al Result [facility] Department [place] [address] * Vitamin D 25 hydroxy (11/24/2021 3:21 PM CDT) Vitamin D 81.7 20.0 - 100.0 ng/mL [facility] Comment: VITAMIN D DEFICIENCY = LESS THAN or EQUAL TO 20 ng/mL VITAMIN D INSUFFICIENCY = 21 - 29 ng/mL VITAMIN D SUFFICIENT = 30-100 ng/mL Blood 11/24/2021 3:21 PM CDT 11/24/2021 3:59 PM CDT Mimi Freedman PAYROLL TAX SPECIALIST LAB BLOOD ORDERABLES Fin al Result Performing Organization Address City/State/[facility] Co de Phone Number [facility] * (ABNORMAL) Comprehensive metabolic panel (11/24/2021 3:21 PM CDT) Pathologist [facility] Total Protein 7.4 6.1 - 8.4 g/dL [facility] Albumin 4.5 3.5 - 5.2 g/dL [facility] Calcium 10.2 8.6 - 10.3 mg/dL [facility] BUN 10 7 - 23 mg/dL [facility] Total Bilirubin 0.49 0.20 - 1.40 mg/dL [facility] Alk Phos, Total 210(H) 35 - 129 IU/L [facility] AST (SGOT) 26 11 - 47 IU/L [facility] ALT (SGPT) 22 6 - 53 IU/L [facility] Creatinine 0.98 0.60 - 1.10 mg/dL [facility] Sodium 140 135 - 145 mmol/L [facility] Potassium 3.9 3.3 - 5.1 mmol/L [facility] Chloride 98 95 - 107 mmol/L [facility] CO2 Content 32(H) 21 - 29 mmol/L [facility] Glucose 114(H) 64 - 99 mg/dL [facility] Comment: NONFASTING GLUCOSE RANGE = 64-199 mg/dL FASTING GLUCOSE 64 - 99 = NORMAL FASTING GLUCOSE 100 - 125 = IMPAIRED FASTING GLUCOSE FASTING GLUCOSE >=126 = PROVISIONAL DIAGNOSIS OF DIABETES eGFR 65.7 >60.0 mL/min/1.7 3 m2 [facility] Blood 11/24/2021 3:21 PM CDT 11/24/2021 3:59 PM CDT Mimi Freedman PAYROLL TAX SPECIALIST LAB BLOOD ORDERABLES Fin al Result [facility] * CBC with auto differential (11/24/2021 3:21 PM CDT) White Blood Count 6.8 3.6 - 11.2 K/uL [facility] RBC 4.48 3.63 - 4.92 M/uL [facility] Hemoglobin 13.0 11.9 - 15.5 g/dL [facility] Hematocrit 39.0 36.1 - 44.3 % [facility] MCV 87.2 80.0 - 97.6 fL [facility] MCH 29.1 26.7 - 33.7 pg [facility] MCHC 33.4 32.7 - 35.5 g/dL [facility] RBC Dist Width 13.0 12.3 - 17.0 % [facility] Platelet Count 327 140 - 440 K/uL [facility] MPV 9.3 6.8 - 10.4 fL [facility] Neutrophils % 70.0 38.7 - 74.5 % [facility] Lymphocyte % 21.2 20.0 - 54.3 % [facility] Monocytes % 5.3 4.3 - 13.5 % [facility] Eosinophils % 3.0 0.0 - 6.0 % [facility] Basophil % 0.5 0.0 - 3.0 % [facility] Absolute Neutrophil 4.7 1.8 - 6.6 K/uL [facility] Absolute Lymphocyte 1.4 0.8 - 3.3 K/uL [facility] Absolute Monocyte 0.4 0.2 - 1.2 K/uL [facility] Absolute Eosinophil 0.2 0.0 - 0.5 K/uL [facility] Absolute Basophil 0.0 0.0 - 0.2 K/uL [facility] Nucleated RBC % 0.1 0.0 - 0.4 /100 WBC [facility] Blood 11/24/2021 3:21 PM CDT 11/24/2021 3:59 PM CDT Mimi Freedman PAYROLL TAX SPECIALIST LAB BLOOD ORDERABLES Fin al Result [facility] * Gamma GT (11/24/2021 3:21 PM CDT) GGT 23 5 - 36 IU/L [facility] Blood 11/24/2021 3:21 PM CDT 11/24/2021 3:59 PM CDT Mimi Freedman PAYROLL TAX SPECIALIST LAB BLOOD ORDERABLES Fin al Result Performing Organization Address City/[facility] Co de Phone Number [facility] * T4, free (11/24/2021 3:21 PM CDT) Free T4 1.38 0.80 - 1.80 ng/dL [facility] Blood 11/24/2021 3:21 PM CDT 11/24/2021 3:59 PM CDT Mimi Freedman PAYROLL TAX SPECIALIST LAB BLOOD ORDERABLES Fin al Result Performing Organization Address [facility] de Phone Number [facility] documented in this encounter Visit Diagnoses Diagnosis Primary biliary cirrhosis (HCC)- Primary Biliary cirrhosis documented in this encounter Care Teams Brush Cleaner Relationship Specialty Start Date End Date Maria Ines Garrido MD [address] [place] [id number] PCP - General Internal Medicine 07/14/21 02/28/22 documented as of this encounter
--- OUTSIDE RECORDS SUMMARY | 2024-02-12 03:54 | XMS_ITS | Encounter Summary ---
Author Organization [facility] [employer] of [facility] Address [address] [place] [address] Phone Care Team Providers Care Motorcycle Mechanic Name Role Phone Maria Ines Garrido MD Primary Care Provider Encounter Details Date Type Department Care Team (Late st Contact Info) Description 11/25/2021 Telephone [facility] Gastroenterology [facility] 12th [place] [address] [place] [id number] Kimberly Jordan RN Social History Tobacco Use [...] Telephone Encounter - Kimberly Jordan RN - 11/25/2021 3:12 PM CDT Records came across fax (GI note, colonscopy from 10/02, liver biopsy from 2017). Forwarded to Latrice Freedman GROUP HOME WORKER and medical records to scan into chart * Telephone Encounter - Kimberly Jordan RN - 11/25/2021 9:46 AM CDT Spoke to Dr Fran Lopez office ([phone]) and faxed request for records ([phone]). Will follow in week if not received. ----- Message from Latrice Freedman NP sent at 11/25/2021 8:11 AM CDT ----- Amadeo Hernandez, Would you be able to get a copy of her office reports from previous GI in [place]? If it is toomuch to get them then perhaps we can at least get her most recent office visit note? Thanks! documented in this encounter Plan of Treatment Not on file documented as of this encounter Visit Diagnoses Not on filedocumented in this encounter Care Teams Motorcycle Mechanic Relationship Specialty Start Date End Date Maria Ines Garrido MD [facility] [address] PCP - General Internal Medicine 07/14/21 02/28/22 documented as of this encounter
--- OUTSIDE RECORDS SUMMARY | 2024-02-12 03:54 | XMS_ITS | Encounter Summary ---
Author Organization [facility] Healthcare Address [address] [place] [address] Care Team Providers Care Sheet Metal Shop Foreman Name Role Phone James Gentile MD Primary Care Provider [phone] Encounter Details Date Type Department Care Team (Late st Contact Info) Description 04/18/2022 3:05 PM CARPORT ERECTOR Lab [facility] Medical Office Bldg 3 OP Lab [facility] [address] [address] History of hydrocephalus Social History Tobacco Use Types Packs/Day Years [...] Procedure Name Priority Date/Time Associated Diagnosis Comments IMMUNOTYPING Routine 04/18/2022 3:18 PM CARPORT ERECTOR History of hydrocephalus DIFFERENTIAL AUTO Routine 04/18/2022 3:1 8 PM CARPORT ERECTOR History of hydrocephalus CBC WITH AUTO DIFFERENTIAL Routine 04/18/2022 3:18 PM CARPORT ERECTOR History of hydrocephalus METHYLMALONIC ACID, SERUM Routine 04/18/2022 3:18 PM CARPORT ERECTOR History of hydrocephalus APTT Routine 04/18/2022 3:18 PM CARPORT ERECTOR History of hydrocephalus PROTIME-INR Routine 04/18/2022 3:18 PM CARPORT ERECTOR History of hydrocephalus TSH Routine 04/18/2022 3:18 PM CARPORT ERECTOR History of hydrocephalus PROTEIN ELECTROPHORESIS, WITH REFLEX, SERUM Routine 04/18/2022 3:18 PM CARPORT ERECTOR History of hydrocephalus VITAMIN B12 Routine 04/18/2022 3:18 PM CARPORT ERECTOR History of hydrocephalus documented in this encounter Results * Immunotyping, serum (04/18/2022 3:18 PM CARPORT ERECTOR) Immunosubtraction Please see comment [facility] Comment: NO PARAPROTEIN DETECTED Reviewed and signed by Omero Stevens MD, PhD 04/19/2022 Testing performed by: [facility], [address] [facility], [place]., [address] Blood 04/18/2022 3:18 PM CARPORT ERECTOR 04/18/2022 10:03 PM CARPORT ERECTOR Narrative Z[facility]OBIA - 04/19/2022 2:42 PM CARPORT ERECTOR Reflex Immunotyping, Ser us Case Bucio MD LAB BLOOD ORDERABLES Final Resul t [facility] [address] [facility] Department [place] [address] * Differential, auto (04/18/2022 3:18 PM CARPORT ERECTOR) Neutrophil abs 4.4 1.7 - 6.5 K/cumm [facility] Imm gran abs 0.0 0.0 - 0.1 K/cumm [facility] Lymphocyte abs 1.6 0.8 - 3.3 K/cumm [facility] Monocyte abs 0.4 0.2 - 0.8 K/cumm [facility] Eosinophil abs 0.1 0.0 - 0.5 K/cumm [facility] Basophil abs 0.1 0.0 - 0.1 K/cumm [facility] Neutrophil pct 67.2 % [facility] Comment: Interpretive Data Percent cell count reference ranges are not reported, since discordance with absolute values may lead to misinterpretation of CBC data. Current Interpretive Data was last revised on 2017. Imm gran pct 0.2 % [facility] Comment: Interpretive Data Percent cell count reference ranges are not reported, since discordance with absolute values may lead to misinterpretation of CBC data. Current Interpretive Data was last revised on 2017. Lymphocyte pct 23.9 % [facility] Comment: Interpretive Data Percent cell count reference ranges are not reported, since discordance with absolute values may lead to misinterpretation of CBC data. Current Interpretive Data was last revised on 2017. Monocyte pct 5.8 % [facility] Comment: Interpretive Data Percent cell count reference ranges are not reported, since discordance with absolute values may lead to misinterpretation of CBC data. Current Interpretive Data was last revised on 2017. Eosinophil pct 2.1 % [facility] Comment: Interpretive Data Percent cell count reference ranges are not reported, since discordance with absolute values may lead to misinterpretation of CBC data. Current Interpretive Data was last revised on 2017. Basophil pct 0.8 % [facility] Comment: Interpretive Data Percent cell count reference ranges are not reported, since discordance with absolute values may lead to misinterpretation of CBC data. Current Interpretive Data was last revised on 2017. Blood 04/18/2022 3:18 PM CARPORT ERECTOR 04/18/2022 5:19 PM CARPORT ERECTOR us Case Bucio MD LAB BLOOD ORDERABLES Final Resul t [facility] [address] [facility] Department [place] [address] * (ABNORMAL) TSH (04/18/2022 3:18 PM CARPORT ERECTOR) Pathologist [facility] Thyroid Stimulating Hormone 5.54(H) 0.30 - 4.20 mcIUnit/mL [facility] Blood 04/18/2022 3:18 PM CARPORT ERECTOR 04/18/2022 5:19 PM CARPORT ERECTOR Case Bucio MD LAB BLOOD ORDERABLES Final Resul t Performing Organization Address [facility] de Phone Number [address] [address] * Vitamin B12 (04/18/2022 3:18 PM CARPORT ERECTOR) [facility] Vitamin B12 441 230 - 1,250 pg/mL [facility] Blood 04/18/2022 3:18 PM CARPORT ERECTOR 04/18/2022 5:19 PM CARPORT ERECTOR Result [facility] Case Bucio MD LAB BLOOD ORDERABLES Final Resul t Performing Organization Address [facility] de Phone Number [address] [address] * Methylmalonic acid, serum (04/18/2022 3:18 PM CARPORT ERECTOR) [facility] MMA 0.25 <=0.40 nmol/mL [facility] Comment: ADDITIONAL INFORMATION This test was developed and its performance characteristics determined by [facility] in a manner consistent with CLIA requirements. This test has not been cleared or approved by the U.S. Food and Drug Administration. Test Performed by: [address] [address] Personnel Security Assistant: Shree Rhodes M.D. Ph.D.; CLIA# [id number] Blood 04/18/2022 3:18 PM CARPORT ERECTOR 04/18/2022 5:19 PM CARPORT ERECTOR Case Bucio MD LAB BLOOD ORDERABLES Final Resul t [facility] [address] [facility] Department [place] [address] * Protein electrophoresis with reflex, serum (04/18/2022 3:18 PM CARPORT ERECTOR) Protein, sr 6.8 6.2 - 8.2 g/dL [facility]IA Comment:Testing performed by : [facility], [address] [place] [address]., [id number] Albumin 4.0 3.2 - 5.0 g/dL [facility] Comment:Testing performed by : [facility], [address] [place] [address], [id number] Alpha-1 globulin 0.3 0.2 - 0.4 g/dL [facility] Comment:Testing performed by : [facility], [address] [place] [address], [id number] Alpha-2 globulin 0.8 0.5 - 1.0 g/dL [facility] Comment:Testing performed by : [facility], [address] [place] [address]., [id number] Beta-1 globulin 0.5 0.3 - 0.6 g/dL [facility] Comment:Testing performed by : [facility], [address] [place] [address], [id number] Beta-2 globulin 0.5 0.2 - 0.6 g/dL [facility] Comment:Testing performed by : [facility], [address] [place] [address], [id number] Gamma globulin 0.8 0.5 - 1.7 g/dL [facility] Comment:Testing performed by : [facility], [address] [place] [address], [id number] SPEP interp Please see comment [facility] Comment: No apparent monoclonal peak See immunotyping for further information Reviewed and signed by Omero Stevens MD, PhD 04/19/2022 Testing performed by: [facility], [address] [facility], [place]., [address] Immunotyping See Immunotyping Results [facility] Comment:Testing performed by : [facility], [address] [facility], [place]., [address] Blood 04/18/2022 3:18 PM CARPORT ERECTOR 04/18/2022 10:03 PM CARPORT ERECTOR Case Bucio MD LAB BLOOD ORDERABLES Final Resul t Performing Organization Address City/[facility]/ZIP Co de Phone Number [address] [employer] [place] [address] * CBC with auto differential (04/18/2022 3:18 PM CARPORT ERECTOR) [facility] WBC 6.5 3.8 - 9.9 K/cumm [facility] Hgb 12.9 11.9 - 15.5 g/dL [facility] Hct 38.1 35.6 - 45.5 % [facility] Plt 354 150 - 400 K/cumm [facility] MPV 11.2 9.1 - 12.3 fL [facility] RBC 4.27 3.90 - 5.20 M/cumm [facility] MCV 89.2 81.3 - 96.4 fL [facility] MCH 30.2 27.1 - 33.3 pg [facility] MCHC 33.9 32.3 - 35.7 g/dL [facility] RDW CV 12.9 11.1 - 14.9 % [facility] RDW SD 42.1 35.7 - 48.1 fL [facility] NRBC abs 0.00 0.00 - 0.01 K/cumm [facility] Blood 04/18/2022 3:18 PM CARPORT ERECTOR 04/18/2022 5:19 PM CARPORT ERECTOR Case Bucio MD LAB BLOOD ORDERABLES Final Resul t Performing Organization Address City/[facility] Co de Phone Number [facility] [address] [facility] [employer] [place] [address] * Protime-INR (04/18/2022 3:18 PM CARPORT ERECTOR) Pathologist [facility] PT 13.2 12.0 - 14.6 sec [facility] INR 1.0 0.9 - 1.2 [facility] Comment: Ref Range High Interpretive data Oral anticoagulant therapeutic ranges: Venous thromboembolism prophylaxis or treatment: 2.0-3.0 CARDIOLOGY Standard range: 2.0-3.0 High-intensity range: 2.5-3.5 Refer to indication-specific guidelines for appropriate target ranges for prosthetic heart valve replacement. Current interpretive data was last revised on 2019. Blood 04/18/2022 3:18 PM CARPORT ERECTOR 04/18/2022 5:19 PM CARPORT ERECTOR Case Bucio MD LAB BLOOD ORDERABLES Final Resul t Performing Organization Address City/[facility] Co de Phone Number [address] [employer] [place] [address] * aPTT (04/18/2022 3:18 PM CARPORT ERECTOR) aPTT 30 22 - 37 sec [facility] Comment: Interpretive data aPTT test has not been evaluated for monitoring heparin therapy. The anti-Xa is the preferred test. Current interpretive data was last revised on 2019. Blood 04/18/2022 3:18 PM CARPORT ERECTOR 04/18/2022 5:19 PM CARPORT ERECTOR Case Bucio MD LAB BLOOD ORDERABLES Final Resul t Performing Organization Address City/[facility] Co de Phone Number [address] [employer] [place] [address] documented in this encounter Visit Diagnoses Diagnosis History of hydrocephalus Other personal history of disorders of nervous system and sense organs documented in this encounter Care Teams Sheet Metal Shop Foreman Relationship Specialty Start Date End Date James Gentile MD [address] [place] [address] PCP - General Internal Medicine 03/01/22 01/17/24 documented as of this encounter
--- OUTSIDE RECORDS SUMMARY | 2024-02-12 03:54 | XMS_ITS | Encounter Summary ---
Author Organization [facility] [facility] Address [address] [place] [address] Phone Care Team Providers Care Political Aide Name Role Phone Maria Ines Garrido MD Primary Care Provider Encounter Details Date Type Department Care Team (Late st Contact Info) Description 12/08/2021 Telephone [facility] Gastroenterology [facility] 12th [place] [address] [place] [phone] Rose Jackson Social History Tobacco Use Types Packs/Day Years [...] encounter Miscellaneous Notes * Telephone Encounter - Rose Jackson - 12/08/2021 3:59 PM CDT Pt is scheduled at [facility] on on 9:45am arrival time with 10:15am test. Pt has verbal instructions, send to [employer] and mailed to home address. 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 When scheduling, make sure pt schedules on day where she can have inventory associate and driver with her documented in this encounter Plan of Treatment Not on file documented as of this encounter Visit Diagnoses Diagnosis Hepatic vein stenosis- Primary Compression of vein Primary biliary cirrhosis (HCC) Biliary cirrhosis documented in this encounter Care Teams Political Aide Relationship Specialty Start Date End Date Maria Ines Garrido MD [address] [place] [address] PCP - General Internal Medicine 07/14/21 02/28/22 documented as of this encounter
--- OUTSIDE RECORDS SUMMARY | 2024-02-12 03:54 | XMS_ITS | Encounter Summary ---
Author Organization [facility] Address [address] [facility] [address] [place] [address] Care Team Providers Care Line Server Name Role Phone Maria Ines Garrido MD Primary Care Provider [phone] Reason for Visit * Reason Onset Date Comments Med Refill 09/22/2021 Encounter Details Date Type Department Care Team ([facility] st Contact Info) Description 09/22/2021 Telephone [facility] Primary Care [address] [address] Maria Ines Garrido MD [facility] [address] Med Refill Social History Tobacco Use Types Packs/Day Years [...] Refills Last Filled Start Date End Date triamterene-hydroCH LOROthiazide (triamterene-hydroC HLOROthiazide) 37.5-25 mg per tablet/capsule Take 1 tablet/caps ule by mouth daily 30 tablet/capsule 1 09/22/2021 11/15/2021 documented in this encounter Miscellaneous Notes * Telephone Encounter - Aline Cr MA - 09/22/2021 3:33 PM CDT Refilled * Telephone Encounter - Lola Rosen - 09/22/2021 2:39 PM CDT Needs refills on triamterene-hydroCHLOROthiazide (triamterene-hydroCHLOROthiazide) 37.5-25 mg per tablet/capsule documented in this encounter Plan of Treatment Not on file documented as of this encounter Visit Diagnoses Not on filedocumented in this encounter Discontinued Medications Medication Sig Discontinue Reason Start Date End Da te triamterene-hydroCHLOROt hiazide (triamterene-hydroCHLORO thiazide) 37.5-25 mg per tablet/capsule Take 1 tablet by mouth daily Reorder 07/29/2018 09/22/2021 documented as of this encounter Care Teams Line Server Relationship Specialty Start Date End Date Maria Ines Garrido MD [address] [place] [address] PCP - General Internal Medicine 07/14/21 02/28/22 documented as of this encounter
--- OUTSIDE RECORDS SUMMARY | 2024-02-12 03:54 | XMS_ITS | Encounter Summary ---
Author Organization [facility] Address [address] [facility] [address] [place] [address] Care Team Providers Care Mechanical Design Technician Name Role Phone James Gentile MD Primary Care Provider [phone] Encounter Details Date Type Department Care Team (Late st Contact Info) Description 03/01/2022 Orders Only [facility] Primary Care [address] [facility] [address] [place] [address] ProviderHelen MD [address] [place] [address] Social History Tobacco Use Types Packs/Day Years [...] Procedure Name Priority Date/Time Associated Diagnosis Comments HM COLONOSCOPY Routine 09/22/2020 documented in this encounter Results * HM COLONOSCOPY (09/22/2020) Historical Provider HEALTH MAINTENANCE Final Result documented in this encounter Visit Diagnoses Not on filedocumented in this encounter Care Teams Mechanical Design Technician Relationship Specialty Start Date End Date James Gentile MD [address] [place] [id number] PCP - General Internal Medicine 03/01/22 01/17/24 documented as of this encounter
--- OUTSIDE RECORDS SUMMARY | 2024-02-12 03:54 | XMS_ITS | Encounter Summary ---
Author Organization [facility] [facility] Address [address] [place] [address] Phone Care Team Providers Care Palletiser Operator Name Role Phone Maria Ines Grarido MD Primary Care Provider [phone] Encounter Details Date Type Department Care Team (Late st Contact Info) Description 02/14/2022 Documentation [facility] Gastroenterology [address] [facility] 12th [place] [address] [place] [address] Kimberly Jordan, RN Social History Tobacco Use [...] of this encounter Progress Notes * Kimberly Jordan, RN - 02/14/2022 12:01 PM CST PT cancelled MRI/MRCP that was scheduled last week at [facility]. Left message requesting pt call me back or [facility]. 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 She states she cancelled due to thecost. She had not met deductible for 2021 and her had just acquired some expensive medical bills himself. She would like to look around at outpt imaging centers but either way not ready to schedule anything at this time. Told her if I do not hear back in 2 months or so would reach out to her and she was ok with this plan. Reminded her if calling around for outpt centers, she needs to makesure they perform MRI/MRCP not just MRI CIATE CREATIVE DIRECTOR CIATE CREATIVE DIRECTOR documented in this encounter Plan of Treatment Not on file documented as of this encounter Visit Diagnoses Not on filedocumented in this encounter Care Teams Palletiser Operator Relationship Specialty Start Date End Date Maria Ines Garrido MD [address] [place] [address] PCP - General Internal Medicine 07/14/21 02/28/22 documented as of this encounter
--- OUTSIDE RECORDS SUMMARY | 2024-02-12 03:54 | XMS_ITS | Encounter Summary ---
Author Organization [facility] Address [address] [place] [address] Phone Care Team Providers Care Economic Development Director Name Role Phone Maria Ines Garrido MD Primary Care Provider [phone] Encounter Details Date Type Department Care Team (Latest Contact Info) Description 12/02/2021 11:45 AM CDT Procedure visit [facility] Gastroenterology [address] [facility] 2nd Floor [address] [place] [address] Primary biliary cirrhosis (HCC) Social History Tobacco [...] - Inhaled Oxygen Concentration - - Weight 83.7 kg (184 lb 8 oz) 12/02/2021 11:39 AM CDT Height 162.6 cm (5' 4 ) 12/02/2021 11:39 AM CDT Body Mass Index 31.67 12/02/2021 11:39 AM CDT documented in this encounter Progress Notes * Taisha Dubose RMA - 12/02/2021 11:45 AM CDT Patient tolerated testing well documented in this encounter Miscellaneous Notes * Result Encounter Note - Latrice Freedman NP - 12/06/2021 11:30 AM CDT Kimberly Isabel 1960 Diagnosis: possible PBC MA verification: patient not , no implanted devices and NPO for 3 hours prior Date of examination: 12/02/21 LIVER STIFFNESS: ( E, kPa) Median: 7.3 IQR ( interquartile range): 0.8 IQR/median % (ideally < 30%): 10 CAP ( controlled attenuation parameter, dB/m ): 269 Technical difficulty: none Ordering Provider: Latrice Freedman Fibroscan Interpretation: I have personally reviewed the Fibroscan report and associated tracings. The calculated liver stiffness ( E, kPa) indicates that: The probability of advanced liver fibrosis is: mild, likely F1 The loss of ultrasound signal (controlled attenuation parameter, CAP dB/m), indicated that the probability of hepatic steatosis is: moderate, S2 Interpreting MD: Latrice Freedman The following criteria are used to indicate the probability of advanced (stage 3,4) fibrosis: < 7.0 kPa: low 7.0-8.9 kPa: low to moderate 9.0-14.9 kPa: moderate 15-20 kPa: high > 20 kPa: very high Liver stiffness > 20 kPa is also associated with high probability of complications of portal hypertension including varices and ascites. Liver stiffness > 50 kPa is associated with a high risk of variceal bleeding. Note: Liver stiffness is increased by factors other than fibrosis including passive congestion, infiltrative hepatic diseases, alcoholic hepatitis, biliary obstruction and inflammation. The interpretation of the Fibroscan result provided above may not have taken such factors into account. Disease etiology also influences Fibroscan cutoff values for fibrosis stages and the following cutoffs have been proposed: Cutoffs for stage 3 and stage 4 fibrosis respectively: Hepatitis B: > 9 and > 11.7 kPa Hepatitis C: > 9 and > 12.5 kPa HCV/HIV: > 11 kPa and > 14 kPa Cholestatic liver disease: > 10 and > 17.9 kPa NAFLD/MACIAS: > 10 kPa and > 14 kPa CAP estimates of steatosis: Normal: < 200 dB/m Moderate: 250-300 dB/m Substantial: > 300 dB/m ( Note that the Fibroscan is not a quantitative measurement of liver fat and the risk of NAFLD progression is unrelated to the degree of steatosis) These criteria are estimates and may change as additional supporting data becomes available. documented in this encounter Plan of Treatment Not on file documented as of this encounter Procedures Procedure Name Priority Date/Time Associated Diagnosis Comments LIVER ELASTOGRAPHY W/O IMAGING W/I&R Routine 12/02/2021 Primary biliary cirrhosis (HCC) documented in this encounter Results * Liver Elastography w/o Imaging W/I&R -[facility] (All Locations) (12/02/2021) Anatomical Region Laterality Modality Other Latrice Freedman NP GI PROCEDURE ORDERABLES Edited Result - Final documented in this encounter Visit Diagnoses Diagnosis Primary biliary cirrhosis (HCC) Biliary cirrhosis documented in this encounter Care Teams Economic Development Director Relationship Specialty Start Date End Date Maria Ines Garrido MD [address] [place] [address] PCP - General Internal Medicine 07/14/21 02/28/22 documented as of this encounter
--- OUTSIDE RECORDS SUMMARY | 2024-02-12 03:54 | XMS_ITS | Encounter Summary ---
Author Organization [facility] Address [address] [place] [address] Care Team Providers Care Chemical Processing Supervisor Name Role Phone Maria Ines Garrido MD Primary Care Provider [phone] Reason for Referral * Diagnostic Imaging (Routine) - Closed Specialty Diagnoses / Procedures Referred By Charisse schulz Referred To Contact Diagnoses Preventative health care Procedures Screening Mammogram Bilateral W Maria Ines Mack MD [address] [place] [address] Phone: tel: fax: [address] [address] Referral ID Status Reason Start Date Expiration Date Visits Re quested Visits Authorized [id number] Closed 09/08/2021 10/08/2022 1 1 Reason for Visit * Diagnostic Imaging (Routine) - Closed Specialty Diagnoses / Procedures Referred By Charisse schulz Referred To Contact Diagnoses Preventative health care Procedures Screening Mammogram Bilateral W Maria Ines Mack MD [address] [place] [address] Phone: tel: fax: [address] [address] Referral ID Status Reason Start Date Expiration Date Visits Re quested Visits Authorized [id number] Closed 09/08/2021 10/08/2022 1 1 Encounter Details Date Type Department Care Team (Latest Contact Info) Description 12/06/2021 11:49 AM CDT - 12/06/2021 11:59 PM CDT Hospital Encounter [facility] [address] [place] [address] Preventative health care Discharge Disposition: Discharge to home or self [...] tablet Take 1 tablet by mouth daily atorvastatin (LIPITOR) 10 mg tablet Take 10 mg by mouth daily 08/25/2019 2 clobetasoL (TEMOVATE) 0.05 % ointment Apply topically 4 furosemide (LASIX) 20 mg tablet see administration instructions. Take one tablet 2-3 days per week in the morning for swelling 09/16/2020 3 levothyroxine (SYNTHROID) 100 mcg tablet Take 1 tablet (100 mcg total) by mouth daily 90 tablet 4 09/09/2021 4 metFORMIN (GLUCOPHAGE) 500 mg tablet Take 1 tablet (500 mg total) by mouth 2 (two) times a day 180 tablet 11/30/2021 3 traMADol ER (ULTRAM-ER) 300 mg 24 hr tablet TAKE 1 TABLET DAILY 30 tablet 2 11/01/2021 2 triamterene-hyd roCHLOROthiazid e 37.5-25 mg per tablet TAKE 1 TABLET DAILY 30 tablet 1 11/15/2021 2 ursodioL (GENOVEVA FORTE) 500 mg tablet TAKE 1 TABLET 3 TIMES A DAY 90 tablet 11/08/2021 2 documented as of this encounter Discharge Disposition Disposition Code Departure Means Destination Discharge to home or self care documented in this encounter Miscellaneous Notes * Result Encounter Note - James Gentile MD - 12/06/2021 11:59 PM CDT Inform pt normal. Any questions can be answered at next visit. TIONAL PSYCHOLOGIST documented in this encounter Plan of Treatment Not on file documented as of this encounter Procedures Procedure Name Priority Date/Time Associated Diagnosis Comments SCREENING MAMMOGRAM BILATERAL W SAUL Schedule Routine, Read Routine (OP Routine) 12/06/2021 12:10 PM CDT Preventative health care documented in this encounter Results * Screening [...] age 40, based on guidelines of the [employer] (ACR Practice Parameter for the Performance of Screening and Diagnostic Mammography) and [employer]. For women [...] There has been no suspicious change. us Maria Ines Garrido MD IMG MAMMO PROCEDURES Final Resu lt documented in this encounter Visit Diagnoses Diagnosis Preventative health care Routine general medical examination at a health care facility documented in this encounter Care Teams Chemical Processing Supervisor Relationship Specialty Start Date End Date Maria Ines Garrido MD [address] [place] [address] PCP - General Internal Medicine 07/14/21 02/28/22 documented as of this encounter
--- OUTSIDE RECORDS SUMMARY | 2024-02-12 03:54 | XMS_ITS | Encounter Summary ---
Author Organization [facility] [employer] [facility] Address [address] [place] [address] Phone Care Team Providers Care Director Of State Name Role Phone Maria Ines Garrido MD Primary Care Provider [phone] Encounter Details Date Type Department Care Team (Late st Contact Info) Description 11/24/2021 3:15 PM CDT Lab [facility] Endocrinology Metabolism and Lipid [address] [facility] 12th [place] [address] [place] [address] Primary biliary cirrhosis (HCC) Social History Tobacco [...] Diagnosis Comments CBC WITH AUTO DIFFERENTIAL Routine 11/24/2021 3:21 PM CDT Primary biliary cirrhosis (HCC) VITAMIN D 25 HYDROXY Routine 11/24/2021 3:21 PM CDT Primary biliary cirrhosis (HCC) TSH Routine 11/24/2021 3:21 PM CDT Primary biliary cirrhosis (HCC) T4, FREE Routine 11/24/2021 3:21 PM CDT Primary biliary cirrhosis (HCC) GAMMA GT Routine 11/24/2021 3:21 PM CDT Primary biliary cirrhosis (HCC) COMPREHENSIVE METABOLIC PANEL Routine 11/24/2021 3:21 PM CDT Primary biliary cirrhosis (HCC) documented in this encounter Results * TSH (11/24/2021 3:21 PM CDT) TSH (Thyrotropin) 3.29 0.27 - 4.20 uIU/mL [facility] 11/24/2021 3:21 PM CDT 11/24/2021 3:59 PM CDT Latrice Freedman NP LAB BLOOD ORDERABLES Fin al Result [facility] * Vitamin D 25 hydroxy (11/24/2021 3:21 PM CDT) Vitamin D 81.7 20.0 - 100.0 ng/mL [facility] Comment: VITAMIN D DEFICIENCY = LESS THAN or EQUAL TO 20 ng/mL VITAMIN D INSUFFICIENCY = 21 - 29 ng/mL VITAMIN D SUFFICIENT = 30-100 ng/mL Blood 11/24/2021 3:21 PM CDT 11/24/2021 3:59 PM CDT Latrice Freedman JAVA ANDROID DEVELOPER LAB BLOOD ORDERABLES Fin al Result [facility] * (ABNORMAL) Comprehensive metabolic panel (11/24/2021 3:21 PM CDT) Total Protein 7.4 6.1 - 8.4 g/dL [...] 3:21 PM CDT 11/24/2021 3:59 PM CDT us Latrice Freedman JAVA ANDROID DEVELOPER LAB BLOOD ORDERABLES Fin al Result [facility] [...] 3:21 PM CDT 11/24/2021 3:59 PM CDT us Latrice Freedman JAVA ANDROID DEVELOPER LAB BLOOD ORDERABLES Fin al Result [facility] * Gamma GT (11/24/2021 3:21 PM CDT) GGT 23 5 - 36 IU/L [facility] Blood 11/24/2021 3:21 PM CDT 11/24/2021 3:59 PM CDT Latrice Freedman JAVA ANDROID DEVELOPER LAB BLOOD ORDERABLES Fin al Result Performing Organization Address City/[facility] Co de Phone Number [facility] * T4, free (11/24/2021 3:21 PM CDT) Free T4 1.38 0.80 - 1.80 ng/dL [facility] Blood 11/24/2021 3:21 PM CDT 11/24/2021 3:59 PM CDT Latirce Suzy Freedman JAVA ANDROID DEVELOPER LAB BLOOD ORDERABLES Fin al Result Performing Organization Address [facility] de Phone Number [facility] documented in this encounter Visit Diagnoses Diagnosis Primary biliary cirrhosis (HCC) Biliary cirrhosis documented in this encounter Orders Lab Orders Without Results Count Last Ordered D ate First Ordered Date TSH REFLEX TO FREE T4 1 11/24/2021 documented in this encounter Care Teams Director Of State Relationship Specialty Start Date End Date Maria Ines Garrido MD [address] [place] [address] PCP - General Internal Medicine 07/14/21 02/28/22 documented as of this encounter
--- OUTSIDE RECORDS SUMMARY | 2024-02-12 03:54 | XMS_ITS | Encounter Summary ---
Author Organization [facility] Address [address] [facility] [address] [place] [address] Care Team Providers Care Final Touch Up Painter Name Role Phone Maria Ines Garrido MD Primary Care Provider [phone] Encounter Details Date Type Department Care Team ([facility] st Contact Info) Description 07/29/2021 Orders Only [facility] Primary Care [address] [address] Maria Ines Garrido MD [facility] [address] Social History Tobacco Use Types [...] Filled Start Date End Date levothyroxine (SYNTHROID) 137 mcg tablet Take 1 tablet (137 mcg total) by mouth daily 30 tablet 1 07/29/2021 09/09/2021 documented in this encounter Plan of Treatment Not on file documented as of this encounter Visit Diagnoses Not on filedocumented in this encounter Discontinued Medications Medication Sig Discontinue Reason Start Date End Da te levothyroxine (SYNTHROID) 175 mcg tablet Take 1 tablet by mouth daily 01/31/2021 07/29/2021 documented as of this encounter Care Teams Final Touch Up Painter Relationship Specialty Start Date End Date Maria Ines Garrido MD [address] [place] [address] PCP - General Internal Medicine 07/14/21 02/28/22 documented as of this encounter
--- OUTSIDE RECORDS SUMMARY | 2024-02-12 03:54 | XMS_ITS | Encounter Summary ---
Author Organization [facility] Address [address] [place] [address] Care Team Providers Care Aircraft Shipping Checker Name Role Phone Maria Ines Garrido MD Primary Care Provider [phone] Encounter Details Date Type Department Care Team (Latest Contact Info) Description 11/24/2021 3:06 PM CDT - 11/24/2021 11:59 PM CDT Hospital Encounter [address] [address] Primary biliary cirrhosis (HCC) Discharge Disposition: Discharge [...] 2 (two) times a day 180 tablet 08/29/2021 2 traMADol ER (ULTRAM-ER) 300 mg 24 [...] Encounter Note - Latrice Freedman NP - 11/24/2021 11:59 PM CDT Reviewed with Dr. Carreno: 1. ??Get the 2017 liver biopsy slides for review here and also get a FibroScan. 2. ??If the biopsy review looks like MACIAS, stop the UDCA 3. ??The study (like most studies now) require stage 2 fibrosis. ??If the FibroScan is >~9, thenI can talk to her about screening for the study Mary - can you please obtain the slides? Will also need FibroScan. Placed order. Thank you! * Result Encounter Note - Latrice Freedman NP - 11/24/2021 11:[address] Carreno: 1. ??Get the 2017 liver biopsy slides for review here and also get a FibroScan. 2. ??If the biopsy review looks like MACIAS, stop the UDCA 3. ??The study (like most studies now) require stage 2 fibrosis. ??If the FibroScan is >~9, thenI can talk to her about screening for the study documented in this encounter Plan of Treatment Not on file documented as of this encounter Procedures Procedure Name Priority Date/Time Associated Diagnosis Comments MITOCHONDRIAL ANTIBODIES, QUALITATIVE Routine 11/24/2021 4:37 PM CDT Primary biliary cirrhosis (HCC) documented in this encounter Results * Mitochondrial antibodies, qualitative (11/24/2021 4:37 PM CDT) Anti-mitochond rial Negative Negative [facility] Blood 11/24/2021 4:37 PM CDT 11/24/2021 6:33 PM CDT Latrice Freedman NP LAB BLOOD ORDERABLES [facility] al Result [facility] Department [place] [address] documented in this encounter Visit Diagnoses Diagnosis Primary biliary cirrhosis (HCC) Biliary cirrhosis documented in this encounter Care Teams Aircraft Shipping Checker Relationship Specialty Start Date End Date Maria Ines Garrido MD [address] [place] [address] PCP - General Internal Medicine 07/14/21 02/28/22 documented as of this encounter
--- OUTSIDE RECORDS SUMMARY | 2024-02-12 03:54 | XMS_ITS | Encounter Summary ---
Author Organization [facility] Healthcare Address [address] [place] [address] Care Team Providers Care Scada Engineer Name Role Phone Maria Ines Garrido MD Primary Care Provider Encounter Details Date Type Department Care Team (Late st Contact Info) Description 07/28/2021 12:10 PM CDT Lab [facility] Building [address] [address] Type 2 diabetes mellitus without complication, without long-term current use of insulin (CMS/HCC) (HCC); Essential (primary) hypertension; Hyperlipidemia, mixed; Acquired hypothyroidism [...] Note - Maria Ines Garrido MD - 07/29/2021 9:48 AM CDT Please let pt know we will talk about the remainder of her labs when I see her in a month, however her thyroid needs adjusting. 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 SHe will need to check thyroid labs again in 4-6 weeks before she sees me so we can make sure this dose works. I sent the rx to her mailorder, but she may want it to go to a local pharmacy which is fine of course. documented in this encounter Plan of Treatment Not on file documented as of this encounter Procedures Procedure Name Priority Date/Time Associated Diagnosis Comments EGFR Routine 07/28/2021 12:22 PM CDT Essential (primary) hypertension TSH Routine 07/28/2021 12:22 PM CDT Acquired hypothyroidism T4, FREE Routine 07/28/2021 12:22 PM CDT Acquired hypothyroidism HEMOGLOBIN A1C Routine 07/28/2021 12:22 PM CDT Type 2 diabetes mellitus without complication, without long-term current use of insulin ([facility]) (HCC) LIPID PANEL Routine 07/28/2021 12:22 PM CDT Hyperlipidemia, mixed COMPREHENSIVE METABOLIC PANEL Routine 07/28/2021 12:22 PM CDT Essential (primary) hypertension documented in this encounter Results * eGFR (07/28/2021 12:22 PM CDT) eGFR 102 mL/min/1. 73 m2 ZENOBIA SALINAS Comment: Interpretive [...] was last reviewed 2020. Testing performed by: [address] [address] Blood 07/28/2021 12:2 2 PM CDT 07/28/2021 2:02 PM CDT Maria Ines Garrido MD LAB BLOOD ORDERABLES Final Resu lt Performing Organization Address [facility] de Phone Number [facility] [address] [facility] [place] [address] * (ABNORMAL) TSH (07/28/2021 12:22 PM CDT) Thyroid Stimulating Hormone 0.03(L) 0.30 - 4.20 mcIUnit/mL ZENOBIA Comment:Testing performed by : [address] [address] Blood 07/28/2021 12:2 2 PM CDT 07/28/2021 2:02 PM CDT Maria Ines Garrido MD LAB BLOOD ORDERABLES Final Resu lt Performing Organization Address City/[facility] Co de Phone Number [facility] [address] [facility] [place] [address] * (ABNORMAL) T4, free (07/28/2021 12:22 PM CDT) Free T4 2.19(H) 0.90 - 1.70 ng/dL ZENOBIA SALINAS Comment:Testing performed by : [facility], [address] [place] [address]., [address] Blood 07/28/2021 12:2 2 PM CDT 07/28/2021 2:02 PM CDT us Maria Ines Garrido MD LAB BLOOD ORDERABLES Final Resu lt ZENOBIA [address] [facility] Department [place] [address] * Lipid panel (07/28/2021 12:22 PM CDT) Pathologist [facility] Cholesterol 182 30 - 199 mg/dL ZENOBIA [...] last revised on 2017. Testing performed by: [facility], [address] [place] [address]., [address] Triglycerides 87 <=149 mg/dL ZENOBIA SALINAS Comment: [...] last revised on 2017. Testing performed by: [address] [address] HDL 58 >=40 mg/dL ZENOBIA Comment: Interpretive Data Ages [...] last revised on 2017. Testing performed by: [address] [address] LDL, calculated 107 <=129 mg/dL ZENOBIA Comment: [...] last revised on 2017. Testing performed by: [address] [address] Non-HDL Cholesterol 124 mg/dL ZENOBIA SALINAS Comment: [...] last revised on 2017. Testing performed by: [address] [address] Chol/HDL ratio 3 ZENOBIA SALINAS Comment:Testing performed by : [address] [address] Blood 07/28/2021 12:2 2 PM CDT 07/28/2021 2:02 PM CDT us Maria Ines Garrido MD LAB BLOOD ORDERABLES Final Resu lt ZENOBIA SALINAS [address] [facility] Department [place] [address] * (ABNORMAL) Comprehensive metabolic panel (07/28/2021 12:22 PM CDT) [facility] Sodium 139 135 - 145 mmol/L ZENOBIA SALINAS Comment:Testing performed by : [address] [place]., [address] Potassium, pl 3.7 3.3 - 4.9 mmol/L [facility] Comment:Testing performed by : [address] [address] Chloride 99 97 - 110 mmol/L [facility] Comment:Testing performed by : [address], [place]., [address] CO2 29 22 - 32 mmol/L [facility] Comment:Testing performed by : [address] [address] Anion gap 11 2 - 15 mmol/L [facility] Comment:Testing performed by : [address] [address] BUN 11 8 - 25 mg/dL [facility] Comment:Testing performed by : [address], [place]., [address] Creatinine 0.60 0.60 - 1.10 mg/dL [facility] Comment:Testing performed by : [address] [address] Glucose 123 70 - 199 mg/dL [facility] Comment: Interpretive Data Fasting glucose >/= 126 [...] was last revised 2016. Testing performed by: [address] [address] Calcium 10.3 8.5 - 10.3 mg/dL [facility] Comment:Testing performed by : [address] [address] Bilirubin, total 0.7 0.1 - 1.2 mg/dL [facility] Comment:Testing performed by : [address], [place]., [address] Protein, pl 7.6 6.5 - 8.5 g/dL ZENOBIA Comment:Testing performed by : [address] [address] Albumin 4.5 3.5 - 5.0 g/dL ZENOBIA Comment:Testing performed by : [address] [address] Alk phos 182(H) 40 - 130 Units/L ZENOBIA Comment:Testing performed by : [address] [address] ALT 27 7 - 45 Units/L ZENOBIA Comment:Testing performed by : [address] [address] AST 42 10 - 45 Units/L ZENOBIA Comment:Testing performed by : [address] [address] Blood 07/28/2021 12:2 2 PM CDT 07/28/2021 2:02 PM CDT Maria Ines Garrido MD LAB BLOOD ORDERABLES Final Resu lt [facility] [address] [facility] Department of Laboratories [place], [place] [id number] * (ABNORMAL) Hemoglobin A1c (07/28/2021 12:22 PM CDT) Hgb A1C 6.0(H) 4.0 - 5.6 % ZENOBIA Comment:Testing performed by : [address] [address] Estimated Average Glucose 126 mg/dL ZENOBIA Comment: The ADA recommends reporting an estimated Average Glucose (eAG) with all Hemoglobin A1c results using the equation derived from a study of 507 normal and diabetic adults. ??Minority populations were underrepresented and children were not included. ?? (Diabetes Care 31:6564-6156, 2008). ??The eAG is not equivalent to a fasting glucose. Testing performed by: [address] [address] Blood 07/28/2021 12:2 2 PM CDT 07/28/2021 2:02 PM CDT us Maria Ines Garrido MD LAB BLOOD ORDERABLES Final Resu lt ZENOBIA [address] [facility] Department [place] [address] documented in this encounter Visit Diagnoses Diagnosis Type 2 diabetes mellitus without complication, without long-term current use of insulin (CMS/HCC) (HCC) Essential (primary) hypertension Unspecified essential hypertension Hyperlipidemia, mixed Mixed hyperlipidemia Acquired hypothyroidism Unspecified hypothyroidism documented in this encounter Care Teams Scada Engineer Relationship Specialty Start Date End Date Maria Ines Garrido MD [address] [place] [id number] PCP - General Internal Medicine 07/14/21 02/28/22 documented as of this encounter
--- OUTSIDE RECORDS SUMMARY | 2024-02-12 03:54 | XMS_ITS | Encounter Summary ---
Author Organization [facility] Address [address] [place] [address] Phone Care Team Providers Care Delivery Technician Name Role Phone Maria Ines Garrido MD Primary Care Provider [phone] James Gentile MD Primary Care Provider + [phone] Yari Castellano MD Primary Care Provider + [phone] Encounter Details Date Type Department Care Team (Late st Contact Info) Description 09/22/2020 Orders Only [facility] Scanning, Provider Social History Tobacco Use Types Packs/Day Years [...] Procedure Name Priority Date/Time Associated Diagnosis Comments GI - RESULT 09/22/2020 documented in this encounter Results * GI - RESULT (09/22/2020) Anatomical Region Laterality Modality Other us Provider Scanning Final Result documented in this encounter Visit Diagnoses Not on filedocumented in this encounter Care Teams Delivery Technician Relationship Specialty Start Date End Date Maria Ines Garrido MD [address] [place] [id number] PCP - General Internal Medicine 07/14/21 02/28/22 James Gentile MD [address] [place] [address] PCP - General Internal Medicine 03/01/22 01/17/24 Yari Castellano MD [address] [place] [address] [phone] PCP - General Internal Medicine 01/18/24 documented as of this encounter
--- OUTSIDE RECORDS SUMMARY | 2024-02-12 03:55 | XMS_ITS | Encounter Summary ---
Author Organization [facility] Healthcare Address [address] [place] [address] Care Team Providers Care Critical Care Physician Name Role Phone Unavailable Primary Care Provider Unavailabl e Reason for Visit * Diagnostic Imaging (Routine) - Closed Specialty Diagnoses / Procedures Referred By Charisse t Referred To Contact Procedures Breast Imaging Screening Outside Reference Transcribed Order, Provider Referral ID Status Reason Start Date Expiration Date Visits Re quested Visits Authorized [id number] Closed 12/14/2021 01/13/2023 1 1 Encounter Details Date Type Department Care Team (Latest Contact Info) Description 09/16/2020 - 09/16/2020 11:59 PM CDT Hospital Encounter [facility] Outside Images [address] [place] [address] Discharge Disposition: Discharge to home or self care Social History Tobacco Use Types Packs/Day Years Used Date Smoking Tobacco: Never Assessed Comments Unknown Sex and Gender Information Value Date Recorded Sex Assigned at Not on file Legal Sex Female 2:31 AM CDT Gender Identity Not on file Sexual Orientation Not on file documented as of this encounter Medications at Time of Discharge atorvastatin (LIPITOR) 10 mg tablet Take 10 mg by mouth daily 08/25/2019 2 furosemide (LASIX) 20 mg tablet see administration instructions. Take one tablet 2-3 days per week in the morning for swelling 09/16/2020 3 traMADol ER (ULTRAM-ER) 300 mg 24 hr tablet Take 1 tablet by mouth daily 07/23/2018 2 triamterene-hyd roCHLOROthiazid e (triamterene-hy droCHLOROthiazi de) 37.5-25 mg per tablet/capsule Take 1 tablet by mouth daily 07/29/2018 2 ursodioL (GENOVEVA FORTE) 500 mg tablet Take 500 mg by mouth 3 (three) times a day 07/22/2018 2 documented as of this encounter Discharge Disposition Disposition Code Departure Means Destination Discharge to home or self care documented in this encounter Plan of Treatment Not on file documented as of this encounter Procedures Procedure Name Priority Date/Time Associated Diagnosis Comments BREAST IMAGING MG SCREENING OUTSIDE REFERENCE Routine 09/16/2020 12:00 AM CDT documented in this encounter Results * Breast Imaging Screening Outside Reference (09/16/2020 12:00 AM CDT) Narrative [email or web address] - 12/14/2021 9:00 AM CDT This order has been auto-finalized and does not contain a result. us Provider Transcribed Order IMG MAMMO PROCEDURES Final Result [email or web address] documented in this encounter Visit Diagnoses Not on filedocumented in this encounter
--- OUTSIDE RECORDS SUMMARY | 2024-02-12 03:55 | XMS_ITS | Encounter Summary ---
Author Organization [facility] Healthcare Address [address] [place] [address] Care Team Providers Care Aquatic Biologist Name Role Phone Unavailable Primary Care Provider Unavailabl e Reason for Visit * Diagnostic Imaging (Routine) - Closed Specialty Diagnoses / Procedures Referred By Contac t Referred To Contact Procedures Breast Imaging Diagnostic Outside Reference Transcribed Order, Provider Referral ID Status Reason Start Date Expiration Date Visits Re quested Visits Authorized [id number] Closed 12/14/2021 01/13/2023 1 1 Encounter Details Date Type Department Care Team (Late st Contact Info) Description 11/29/2016 12:05 AM CDT Ancillary Procedure [facility] Outside Images [address] [place] [address] Social History Tobacco Use Types Packs/Day Years [...] Date/Time Associated Diagnosis Comments BREAST IMAGING MG DIAGNOSTIC OUTSIDE REFERENCE Routine 11/29/2016 12:05 AM CDT documented in this encounter Results * Breast Imaging Diagnostic Outside Reference (11/29/2016 12:05 AM CDT) Narrative [email or web address] - 12/14/2021 9:06 AM CDT This order has been auto-finalized and does not contain a result. us Provider Transcribed Order IMG MAMMO PROCEDURES Final Result Performing Organization Address [facility]/State/ZIP Co de Phone Number [email or web address] documented in this encounter Visit Diagnoses Not on filedocumented in this encounter
--- OUTSIDE RECORDS SUMMARY | 2024-02-12 03:55 | XMS_ITS | Encounter Summary ---
Author Organization [facility] Healthcare Address [address] [place] [address] Care Team Providers Care Biodiesel Production Technician Name Role Phone Unavailable Primary Care Provider Unavailabl e Reason for Visit * Diagnostic Imaging (Routine) - Closed Specialty Diagnoses / Procedures Referred By Contac t Referred To Contact Procedures Breast Imaging Procedure Outside Reference Transcribed Order, Provider Referral ID Status Reason Start Date Expiration Date Visits Re quested Visits Authorized [id number] Closed 12/14/2021 01/13/2023 1 1 Encounter Details Date Type Department Care Team (Late st Contact Info) Description 01/24/2017 12:10 AM PROCESSING TECHNOLOGIST Ancillary Procedure [facility] Outside Images [address] [place] [address] Social History Tobacco Use Types Packs/Day Years [...] Date/Time Associated Diagnosis Comments BREAST IMAGING MG PROCEDURE OUTSIDE REFERENCE Routine 01/24/2017 12:10 AM PROCESSING TECHNOLOGIST documented in this encounter Results * Breast Imaging Procedure Outside Reference (01/24/2017 12:10 AM PROCESSING TECHNOLOGIST) Narrative [email or web address]_MHE - 12/14/2021 9:04 AM CDT This order has been auto-finalized and does not contain a result. us Provider Transcribed Order IMG MAMMO PROCEDURES Final Result [email or web address] documented in this encounter Visit Diagnoses Not on filedocumented in this encounter
--- OUTSIDE RECORDS SUMMARY | 2024-02-12 03:55 | XMS_ITS | Encounter Summary ---
Author Organization [facility] Address [address] [place] [address] Phone Care Team Providers Care Fitness Teacher Name Role Phone Maria Ines Garrido MD Primary Care Provider [phone] James Gentile MD Primary Care Provider + [phone] Yari Castellano MD Primary Care Provider + [phone] Encounter Details Date Type Department Care Team (Late st Contact Info) Description 01/09/2017 Orders Only [facility] Scanning, Provider [...] Procedure Name Priority Date/Time Associated Diagnosis Comments SCAN - PATHOLOGY 01/09/2017 documented in this encounter Results * SCAN - PATHOLOGY (01/09/2017) us Provider Scanning Final Result documented in this encounter Visit Diagnoses Not on filedocumented in this encounter Care Teams Fitness Teacher Relationship Specialty Start Date End Date Maria Ines Garrido MD [address] [place] [id number] PCP - General Internal Medicine 07/14/21 02/28/22 James Gentile MD [address] [place] [id number] PCP - General Internal Medicine 03/01/22 01/17/24 Yari Castellano MD [address] [place] [id number] PCP - General Internal Medicine 01/18/24 documented as of this encounter
--- OUTSIDE RECORDS SUMMARY | 2024-02-12 03:55 | XMS_ITS | Encounter Summary ---
Author Organization [facility] Healthcare Address [address] [place] [address] Care Team Providers Care Apparel Manager Name Role Phone Unavailable Primary Care Provider Unavailabl e Reason for Visit * Diagnostic Imaging (Routine) - Closed Specialty Diagnoses / Procedures Referred By Contac t Referred To Contact Procedures Breast Imaging Diagnostic Outside Reference Transcribed Order, Provider Referral ID Status Reason Start Date Expiration Date Visits Re quested Visits Authorized [id number] Closed 12/14/2021 01/13/2023 1 1 Encounter Details Date Type Department Care Team (Late st Contact Info) Description 06/01/2016 Ancillary Procedure [facility] Outside Images [address] [place] [address] Social History Tobacco Use Types Packs/Day Years [...] BREAST IMAGING MG DIAGNOSTIC OUTSIDE REFERENCE Routine 06/01/2016 12:00 AM CDT documented in this encounter Results * Breast Imaging Diagnostic Outside Reference (06/01/2016 12:00 AM CDT) Narrative JOSEPH_[email or web address] - 12/14/2021 9:07 AM CDT This order has been auto-finalized and does not contain a result. us Provider Transcribed Order IMG MAMMO PROCEDURES Final Result [email or web address] documented in this encounter Visit Diagnoses Not on filedocumented in this encounter
--- OUTSIDE RECORDS SUMMARY | 2024-02-12 03:55 | XMS_ITS | Encounter Summary ---
Author Organization [facility] Healthcare Address [address] [place] [address] Care Team Providers Care Film Processing Shift Supervisor Name Role Phone Unavailable Primary Care Provider Unavailabl e Reason for Visit * Diagnostic Imaging (Routine) - Closed Specialty Diagnoses / Procedures Referred By Contac t Referred To Contact Procedures Breast Imaging Screening Outside Reference Transcribed Order, Provider Referral ID Status Reason Start Date Expiration Date Visits Re quested Visits Authorized [id number] Closed 12/14/2021 01/13/2023 1 1 Encounter Details Date Type Department Care Team (Late st Contact Info) Description 03/07/[address] [facility] Outside Images [address] [place] [address] Social History Tobacco Use Types Packs/Day Years [...] BREAST IMAGING MG SCREENING OUTSIDE REFERENCE Routine 03/07/2018 12:00 AM BENZENE WASHER OPERATOR documented in this encounter Results * Breast Imaging Screening Outside Reference (03/07/2018 12:00 AM BENZENE WASHER OPERATOR) Narrative JOSEPH_[email or web address] - 12/14/2021 9:01 AM CDT This order has been auto-finalized and does not contain a result. us Provider Transcribed Order IMG MAMMO PROCEDURES Final Result [email or web address] documented in this encounter Visit Diagnoses Not on filedocumented in this encounter
--- OUTSIDE RECORDS SUMMARY | 2024-02-12 03:55 | XMS_ITS | Encounter Summary ---
Author Organization [facility] Healthcare Address [address] [place] [address] Care Team Providers Care Canal Superintendent Name Role Phone Unavailable Primary Care Provider Unavailabl e Reason for Visit * Diagnostic Imaging (Routine) - Closed Specialty Diagnoses / Procedures Referred By Contac t Referred To Contact Procedures Breast Imaging US Outside Reference Transcribed Order, Provider Referral ID Status Reason Start Date Expiration Date Visits Re quested Visits Authorized [id number] Closed 12/14/2021 01/13/2023 1 1 Encounter Details Date Type Department Care Team (Late st Contact Info) Description 06/01/2016 12:05 AM CDT Ancillary Procedure [facility] Outside Images [address] [place] [address] Social History Tobacco Use Types Packs/Day Years [...] Priority Date/Time Associated Diagnosis Comments BREAST IMAGING US OUTSIDE REFERENCE Routine 06/01/2016 12:05 AM CDT documented in this encounter Results * Breast Imaging US Outside Reference (06/01/2016 12:05 AM CDT) Narrative [email or web address] - 12/14/2021 9:08 AM CDT This order has been auto-finalized and does not contain a result. us Provider Transcribed Order IMG MAMMO PROCEDURES Final Result [email or web address] documented in this encounter Visit Diagnoses Not on filedocumented in this encounter
--- OUTSIDE RECORDS SUMMARY | 2024-02-12 03:55 | XMS_ITS | Encounter Summary ---
Author Organization [facility] Healthcare Address [address] [place] [address] Care Team Providers Care Retail Banker Name Role Phone Unavailable Primary Care Provider Unavailabl e Reason for Visit * Diagnostic Imaging (Routine) - Closed Specialty Diagnoses / Procedures Referred By Contac t Referred To Contact Procedures Breast Imaging Diagnostic Outside Reference Transcribed Order, Provider Referral ID Status Reason Start Date Expiration Date Visits Re quested Visits Authorized [id number] Closed 12/14/2021 01/13/2023 1 1 Encounter Details Date Type Department Care Team (Late st Contact Info) Description 01/24/2017 12:05 AM PRESS TECHNICIAN Ancillary Procedure [facility] Outside Images [address] [place] [address] Social History Tobacco Use Types Packs/Day Years [...] BREAST IMAGING MG DIAGNOSTIC OUTSIDE REFERENCE Routine 01/24/2017 12:05 AM PRESS TECHNICIAN documented in this encounter Results * Breast Imaging Diagnostic Outside Reference (01/24/2017 12:05 AM PRESS TECHNICIAN) Narrative RAD_[email or web address]_MHE - 12/14/2021 9:03 AM CDT This order has been auto-finalized and does not contain a result. us Provider Transcribed Order IMG MAMMO PROCEDURES Final Result [email or web address] documented in this encounter Visit Diagnoses Not on filedocumented in this encounter
--- OUTSIDE RECORDS SUMMARY | 2024-02-12 03:55 | XMS_ITS | Encounter Summary ---
Author Organization [facility] Healthcare Address [address] [place] [address] Care Team Providers Care Die Storage Worker Name Role Phone Unavailable Primary Care Provider Unavailabl e Reason for Visit * Diagnostic Imaging (Routine) - Closed Specialty Diagnoses / Procedures Referred By Contac t Referred To Contact Procedures Breast Imaging Procedure Outside Reference Transcribed Order, Provider Referral ID Status Reason Start Date Expiration Date Visits Re quested Visits Authorized [id number] Closed 12/14/2021 01/13/2023 1 1 Encounter Details Date Type Department Care Team (Late st Contact Info) Description 01/24/2017 Ancillary Procedure [facility] Outside Images [address] [place] [address] Social History Tobacco Use Types Packs/Day Years [...] IMAGING MG PROCEDURE OUTSIDE REFERENCE Routine 01/24/2017 12:00 AM ENERGY CROP FARMER documented in this encounter Results * Breast Imaging Procedure Outside Reference (01/24/2017 12:00 AM ENERGY CROP FARMER) Narrative JOSEPH_[email or web address] - 12/14/2021 9:02 AM CDT This order has been auto-finalized and does not contain a result. us Provider Transcribed Order IMG MAMMO PROCEDURES Final Result JOSEPH_[email or web address]_MHE documented in this encounter Visit Diagnoses Not on filedocumented in this encounter
--- OUTSIDE RECORDS SUMMARY | 2024-02-12 03:55 | XMS_ITS | Encounter Summary ---
Author Organization [facility] Healthcare Address [address] [place] [address] Care Team Providers Care University Archivist Name Role Phone Unavailable Primary Care Provider Unavailabl e Reason for Visit * Diagnostic Imaging (Routine) - Closed Specialty Diagnoses / Procedures Referred By Contac t Referred To Contact Procedures Breast Imaging US Outside Reference Transcribed Order, Provider Referral ID Status Reason Start Date Expiration Date Visits Re quested Visits Authorized [id number] Closed 12/14/2021 01/13/2023 1 1 Encounter Details Date Type Department Care Team (Late st Contact Info) Description 11/29/2016 Ancillary Procedure [facility] Outside Images [address] [place] [address] Social History Tobacco Use Types Packs/Day Years [...] Comments BREAST IMAGING US OUTSIDE REFERENCE Routine 11/29/2016 12:00 AM CDT documented in this encounter Results * Breast Imaging US Outside Reference (11/29/2016 12:00 AM CDT) Narrative JOSEPH_KEVIN_LOYD_MHE - 12/14/2021 9:06 AM CDT This order has been auto-finalized and does not contain a result. us Provider Transcribed Order IMG MAMMO PROCEDURES Final Result [email or web address] documented in this encounter Visit Diagnoses Not on filedocumented in this encounter
--- OUTSIDE RECORDS SUMMARY | 2024-02-12 03:55 | XMS_ITS | Encounter Summary ---
Author Organization [facility] Healthcare Address [address] [place] [address] Care Team Providers Care Barrel Cooper Name Role Phone Unavailable Primary Care Provider Unavailabl e Reason for Visit * Diagnostic Imaging (Routine) - Closed Specialty Diagnoses / Procedures Referred By Contac t Referred To Contact Procedures Breast Imaging US Outside Reference Transcribed Order, Provider Referral ID Status Reason Start Date Expiration Date Visits Re quested Visits Authorized [id number] Closed 12/14/2021 01/13/2023 1 1 Encounter Details Date Type Department Care Team (Late st Contact Info) Description 05/29/2016 Ancillary Procedure [facility] Outside Images [address] [place] [address] Social History Tobacco Use Types Packs/Day Years [...] Comments BREAST IMAGING US OUTSIDE REFERENCE Routine 05/29/2016 12:00 AM CDT documented in this encounter Results * Breast Imaging US Outside Reference (05/29/2016 12:00 AM CDT) Narrative JOSEPH_KEVIN_LOYD_MHE - 12/14/2021 9:08 AM CDT This order has been auto-finalized and does not contain a result. us Provider Transcribed Order IMG MAMMO PROCEDURES Final Result [email or web address]_MHE documented in this encounter Visit Diagnoses Not on filedocumented in this encounter
--- OUTSIDE RECORDS SUMMARY | 2024-02-12 03:55 | XMS_ITS | Encounter Summary ---
Author Organization [facility] Healthcare Address [address] [place] [address] Care Team Providers Care Asset Protection Agent Name Role Phone Unavailable Primary Care Provider Unavailabl e Reason for Visit * Diagnostic Imaging (Routine) - Closed Specialty Diagnoses / Procedures Referred By Contac t Referred To Contact Procedures Breast Imaging Diagnostic Outside Reference Transcribed Order, Provider Referral ID Status Reason Start Date Expiration Date Visits Re quested Visits Authorized [id number] Closed 12/14/2021 01/13/2023 1 1 Encounter Details Date Type Department Care Team (Late st Contact Info) Description 05/29/2016 12:05 AM CDT Ancillary Procedure [facility] Outside Images [address] [place] [address] Social History Tobacco Use Types Packs/Day Years [...] BREAST IMAGING MG DIAGNOSTIC OUTSIDE REFERENCE Routine 05/29/2016 12:05 AM CDT documented in this encounter Results * Breast Imaging Diagnostic Outside Reference (05/29/2016 12:05 AM CDT) Narrative JOSEPH_KEVIN_LOYD_MHE - 12/14/2021 9:09 AM CDT This order has been auto-finalized and does not contain a result. us Provider Transcribed Order IMG MAMMO PROCEDURES Final Result Performing Organization Address [facility]/State/ZIP Co de Phone Number [email or web address] documented in this encounter Visit Diagnoses Not on filedocumented in this encounter
--- OUTSIDE RECORDS SUMMARY | 2024-02-12 03:55 | XMS_ITS | Encounter Summary ---
Author Organization [facility] Healthcare Address [address] [place] [address] Care Team Providers Care Icu Registered Nurse Name Role Phone Unavailable Primary Care Provider Unavailabl e Reason for Visit * Diagnostic Imaging (Routine) - Closed Specialty Diagnoses / Procedures Referred By Contac t Referred To Contact Procedures Breast Imaging Screening Outside Reference Transcribed Order, Provider Referral ID Status Reason Start Date Expiration Date Visits Re quested Visits Authorized [id number] Closed 12/14/2021 01/13/2023 1 1 Encounter Details Date Type Department Care Team (Late st Contact Info) Description 04/14/2019 Ancillary Procedure [facility] Outside Images [address] [place] [address] Social History Tobacco Use Types Packs/Day Years [...] BREAST IMAGING MG SCREENING OUTSIDE REFERENCE Routine 04/14/2019 12:00 AM INTEGRATION ENGINEER documented in this encounter Results * Breast Imaging Screening Outside Reference (04/14/2019 12:00 AM INTEGRATION ENGINEER) Narrative RAD_KEVIN_RITAB_MHE - 12/14/2021 9:00 AM CDT This order has been auto-finalized and does not contain a result. us Provider Transcribed Order IMG MAMMO PROCEDURES Final Result JOSEPH_KEVIN_RITAB_MHE documented in this encounter Visit Diagnoses Not on filedocumented in this encounter
--- OUTSIDE RECORDS SUMMARY | 2024-02-12 03:55 | XMS_ITS | Encounter Summary ---
Author Organization [facility] Healthcare Address [address] [place] [address] Care Team Providers Care Database Designer Name Role Phone Unavailable Primary Care Provider Unavailabl e Reason for Visit * Diagnostic Imaging (Routine) - Closed Specialty Diagnoses / Procedures Referred By Contac t Referred To Contact Procedures Breast Imaging Screening Outside Reference Transcribed Order, Provider Referral ID Status Reason Start Date Expiration Date Visits Re quested Visits Authorized [id number] Closed 12/14/2021 01/13/2023 1 1 Encounter Details Date Type Department Care Team (Late st Contact Info) Description 05/23/2016 Ancillary Procedure [facility] Outside Images [address] [place] [address] Social History Tobacco Use Types Packs/Day Years [...] BREAST IMAGING MG SCREENING OUTSIDE REFERENCE Routine 05/23/2016 12:00 AM CDT documented in this encounter Results * Breast Imaging Screening Outside Reference (05/23/2016 12:00 AM CDT) Narrative JOSEPH_KEVIN_LOYD_MHE - 12/14/2021 9:10 AM CDT This order has been auto-finalized and does not contain a result. us Provider Transcribed Order IMG MAMMO PROCEDURES Final Result [email or web address] documented in this encounter Visit Diagnoses Not on filedocumented in this encounter
--- OUTSIDE RECORDS SUMMARY | 2024-02-12 03:55 | XMS_ITS | Encounter Summary ---
Author Organization [facility] Healthcare Address [address] [place] [address] Care Team Providers Care [employer] Worker Name Role Phone Unavailable Primary Care Provider Unavailabl e Reason for Visit * Diagnostic Imaging (Routine) - Closed Specialty Diagnoses / Procedures Referred By Contac t Referred To Contact Procedures Breast Imaging US Outside Reference Transcribed Order, Provider Referral ID Status Reason Start Date Expiration Date Visits Re quested Visits Authorized [id number] Closed 12/14/2021 01/13/2023 1 1 Encounter Details Date Type Department Care Team (Late st Contact Info) Description 12/04/2016 Ancillary Procedure [facility] Outside Images [address] [place] [address] Social History Tobacco Use Types Packs/Day Years [...] Comments BREAST IMAGING US OUTSIDE REFERENCE Routine 12/04/2016 12:00 AM CDT documented in this encounter Results * Breast Imaging US Outside Reference (12/04/2016 12:00 AM CDT) Narrative JOSEPH_KEVIN_LOYD_MHE - 12/14/2021 9:05 AM CDT This order has been auto-finalized and does not contain a result. us Provider Transcribed Order IMG MAMMO PROCEDURES Final Result [email or web address]_MHE documented in this encounter Visit Diagnoses Not on filedocumented in this encounter
== END 2024-02-05 12:50 | disposition home or self-care (01) ==
PROVIDERS: Radiology Diagnostic Radiology; PCP Internal Medicine; Visit Provider Internal Medicine Hematology & Oncology
DX: J90 Pleural effusion, not elsewhere classified (principal); R18.8 Other ascites
CPT/HCPCS: 32555

== ENCOUNTER 2024-02-21 05:42 | Outpatient (CLI) | payer BC, SELFPAY ==
--- NOTE | 2024-02-20 10:01 | PC.NURSE ---
Pre Radiology instructions Report to the outpatient lionel jody on date _[id number]_ at time _0830_ for procedure Time: _1030_ YOU MAY BE MONITORED AT HOSPITAL FOR UP TO 4 HOURS AFTER YOUR PROCEDURE. A visitor will be allowed to accompany the patient into the hospital. You and your visitor will be asked to self-screen and do not enter if you have any COVID symptoms. A mask is OPTIONAL within the hospital. Patients are to have no food or drink 6 hours prior to procedure time Driving will be restricted after the procedure, you must have a person to drive you home. Labs will be drawn in preop area and once reviewed, you will be taken to radiology area for procedure. When the procedure is completed, you will be taken to outpatient where you will be monitored for several hours. You may have one visitor in this area. Other than holding anti-coagulants, patient may take other medication(s) as scheduled. Prior to your appointment date patients are instructed to hold anti-coagulants after discussing with ordering provider to stop. If unable to discontinue anti-coagulants please notify radiologist. ? No aspirin or warfarin (Coumadin) for 7 days prior to the procedure. ? No clopidogrel (Plavix), ticagrelor (Brilinta), prasugrel (Effient) or dabigatran (Pradaxa) for 5 days prior to the procedure. ? No rivaroxaban (Xarelto), apixaban (Eliquis), dipyridamole (Aggrenox or Persantine) or cilostazol (Pletal) for 2 days prior to the procedure. Medications to discontinue per physician: ___None Date to take last dose: Please leave all valuables, including medications, at home the day of procedure. The hospital will not accept responsibility for valuables. Wear comfortable, loose fitting clothing.? Follow any additional instructions given to you from ordering provider. Telephone instructions given to __and asked if any additional questions and then verbalized understanding. Patient advised to call scheduling provider office or registration scheduling [phone] if any additional questions.
[2024-02-20 10:03] VITALS: BMI 33.5
--- NOTE | ~2024-02-21 | US_ITS ---
EXAMINATION: US thoracentesis DATE: 02/21/2024 11:35 INDICATION: pleural effusion TECHNIQUE: The procedure and its risks, benefits, and alternatives were discussed with the patient. P otential risks discussed included bleeding, infection, and pneumothorax. The patient understood the r isks and agreed to proceed. The skin was prepped and draped in sterile fashion. 1% lidocaine was used for local anesthesia. Under ultrasound guidance, a 5 Fr catheter with trochar was advanced into the right pleural effusion. Fluid was aspirated. The catheter was removed, and a dressing was applied. Th ere were no immediate complications. FINDINGS: Ultrasound images demonstrate a right pleural effusion and the catheter within the fluid. IMPRESSION: 1. Successful ultrasound-guided thoracentesis yielding 1000 mL of joaquín-colored fluid. Reviewed, dictated and finalized at location A. INFERTILITY SPECIALIST IMPRESSION: 1. Successful ultrasound-guided thoracentesis yielding 1000 mL of joaquín-colore d fluid.
--- NOTE | ~2024-02-21 | XR_ITS ---
CHEST RADIOGRAPH CLINICAL HISTORY: post thora . COMPARISON: None TECHNIQUE: Single portable view of the chest. FINDINGS The cardiomediastinal silhouette is partially obscured. Near complete opacification of the right hemithorax. The left hemithorax is clear. The aerated portion of the right lung is inflated. IMPRESSION: No pneumothorax following right-sided thoracentesis, as detailed above. Reviewed, dictated and finalized at location A. URY CELL CLEANER
[2024-02-21 09:18] VITALS: BP 159/81; PULSE 93; RESP 20; TEMP 36.3; O2SAT 96
[2024-02-21 09:33] LABS: Mean Platelet Volume 10.2 fl (7.4-10.4); Platelet Count Result 394 k/mm3 (150-375)
[2024-02-21 09:42] LABS: INR 1.1; Prothrombin Time 14.2 Seconds (11.1-14.7)
[2024-02-21 11:30] VITALS: BP 146/86; PULSE 78; RESP 18; O2SAT 93
[2024-02-21 12:00] VITALS: BP 151/79; PULSE 81; RESP 20; O2SAT 93
[2024-02-21 12:30] VITALS: BP 155/90; PULSE 86; RESP 18; O2SAT 94
[2024-02-21 13:00] VITALS: BP 130/87; PULSE 76; RESP 20; O2SAT 95
[2024-02-21 13:30] VITALS: BP 144/87; PULSE 71; RESP 20; O2SAT 95
== END 2024-02-21 13:33 | disposition home or self-care (01) ==
PROVIDERS: PCP Internal Medicine; Referring Provider Internal Medicine Medical Oncology; Visit Provider Radiology Diagnostic Radiology
DX: Z01.818 Encounter for other preprocedural examination (principal); J90 Pleural effusion, not elsewhere classified
CPT/HCPCS: 32555; 36415; 85049; 85610

== ENCOUNTER 2024-02-26 10:11 | Outpatient (CLI) | payer BC, SELFPAY ==
[2024-02-22 09:06] VITALS: BMI 33.5
--- NOTE | 2024-02-22 09:06 | PC.NURSE ---
Pre Radiology instructions Report to the Imaging center on date _[id number]_ at time _1030_ for procedure Time: _1100_ YOU MAY BE MONITORED AT HOSPITAL FOR UP TO 4 HOURS AFTER YOUR PROCEDURE. A visitor will be allowed to accompany the patient into the hospital. You and your visitor will be asked to self-screen and do not enter if you have any COVID symptoms. A mask is OPTIONAL within the hospital. Patients are to have no food or drink 6 hours prior to procedure time Driving will be restricted after the procedure, you must have a person to drive you home. Labs will be drawn in preop area and once reviewed, you will be taken to radiology area for procedure. When the procedure is completed, you will be taken to outpatient where you will be monitored for several hours. You may have one visitor in this area. Other than holding anti-coagulants, patient may take other medication(s) as scheduled. Prior to your appointment date patients are instructed to hold anti-coagulants after discussing with ordering provider to stop. If unable to discontinue anti-coagulants please notify radiologist. ? No aspirin or warfarin (Coumadin) for 7 days prior to the procedure. ? No clopidogrel (Plavix), ticagrelor (Brilinta), prasugrel (Effient) or dabigatran (Pradaxa) for 5 days prior to the procedure. ? No rivaroxaban (Xarelto), apixaban (Eliquis), dipyridamole (Aggrenox or Persantine) or cilostazol (Pletal) for 2 days prior to the procedure. Medications to discontinue per physician: ___None Date to take last dose: Please leave all valuables, including medications, at home the day of procedure. The hospital will not accept responsibility for valuables. Wear comfortable, loose fitting clothing.? Follow any additional instructions given to you from ordering provider. Telephone instructions given to ___and asked if any additional questions and then verbalized understanding. Patient advised to call scheduling provider office or registration scheduling [phone] if any additional questions.
[2024-02-26] VITALS (8 sets, daily range): BP systolic 105–168; BP diastolic 54–80; PULSE 69–99; RESP 18–20; O2SAT 95–96
--- NOTE | ~2024-02-26 | CT_ITS ---
EXAMINATION: CT biopsy lung w/imaging DATE: 02/26/2024 11:54 INDICATION: Right lung mass. Malignant right pleural effusion. TECHNIQUE: The procedure including the risks, benefits, and alternatives and possibility of chest tub e placement were discussed with the patient. Risks discussed included infection, hemorrhage, and pneu mothorax. The patient understood the risks and agreed to proceed. The patient was placed supine. The skin overlying the right chest was prepped and draped in sterile fashion. Anesthetic was administer ed with 1% lidocaine subcutaneously. A 19 gauge outer needle was advanced under CT guidance to the l esion of interest. A 20 gauge core biopsy needle was then used to obtain 3 core biopsy specimens. The needle was removed and the entry site was cleaned and dressed. The mA was adjusted according to rosangela ent size. Iterative reconstruction technique was employed. The dose-length product was 103.88 mGy-cm. There were no immediate complications. 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 IMPRESSION: 1. CT-guided core needle biopsy of a 4.2 x 2.6 cm mass of the parietal pleura of the right lung. Reviewed, dictated and finalized at location A. STERED DIETETIC TECHNICIAN
== END 2024-02-26 14:36 | disposition home or self-care (01) ==
PROVIDERS: Radiology Diagnostic Radiology; PCP Internal Medicine; Referring Provider Internal Medicine Medical Oncology; Visit Provider Internal Medicine Medical Oncology
PROC: BB24ZZZ Computerized Tomography (CT Scan) of Bilateral Lungs (ICD-10-PCS; CPT 32408; principal; 2024-02-26 11:00)
DX: R91.1 Solitary pulmonary nodule (principal); J91.0 Malignant pleural effusion
CPT/HCPCS: 32408; 88305

== ENCOUNTER 2024-08-20 10:19 | Inpatient (IN) | payer BC, SELFPAY ==
[2024-08-20] VITALS (12 sets, daily range): BP systolic 162–227; BP diastolic 78–110; PULSE 81–94; RESP 16–24; TEMP 36.2–36.6; O2SAT 95–100
--- NOTE | ~2024-08-20 | CT_ITS ---
CT brain wo con Ordering provider: Jez Ruiz MD History: 64 years Female with . AMS . Comparison: None. Technique: CT of the head without contrast. Radiation reduction technique utilized. The dose-length p roduct was 918.76 mGy-cm. FINDINGS: BRAIN PARENCHYMA AND CSF SPACES: Dilated ventricles is noted suggestive of hydrocephalus. No midline shift, mass effect or hemorrhage. The brain parenchyma and CSF spaces are otherwise normal. VISUALIZED PARANASAL SINUSES: Well aerated. MASTOIDS: Well aerated. BONES: The bones appear intact. SOFT TISSUES: Visualized nasopharynx is normal. Superficial soft tissues are normal. IMPRESSION: Hydrocephalus. Clinical correlation and follow-up advised. Otherwise, No acute intracranial findings. Reviewed, dictated and finalized at location A.
--- NOTE | ~2024-08-20 | XR_ITS ---
EXAM/PROCEDURE: XR chest 2V - 08/20/2024 11:40 CDT HISTORY: 64 years old Female with SOA TECHNIQUE: Two view(s) of the chest. COMPARISON: None available. FINDINGS: LUNGS/ PLEURA: Mild blunting of both costophrenic angles, likely scarring versus probable small pleur al effusions. Linear opacities in bilateral lung bases, right greater than left. HEART/ MEDIASTINUM: Mild to moderate cardiomegaly. BONES: Degenerative changes. Tip of the Mediport catheter is at the cavoatrial junction. OTHER: Visualized upper abdomen is unremarkable. IMPRESSION: Linear opacities in bilateral lung bases may represent atelectasis or scarring versus pneumonia in ap propriate clinical settings. Short-term follow-up chest radiograph is recommended after appropriate c linical therapy. Reviewed, dictated and finalized at location A. IMPRESSION: Linear opacities in bilateral lung bases may represent atelectasis or scarring versus pneumonia in appropriate clinical settings. Short-term follow-up chest r adiograph is recommended after appropriate clinical therapy.
--- NOTE | 2024-08-20 10:23 | ECG_ITS ---
Test Date: 2024-08-20 10:31:01 Measurements Intervals [place] Rate: 84 P: -3 MS: 151 QRS: -40 QRSD: 94 T: -9 QT: 379 QTc: 450 Interpretive Statements SINUS RHYTHM POSSIBLE LEFT ATRIAL ENLARGEMENT [-0.1mV P-WAVE IN V1/V2] LEFT AXIS DEVIATION [QRS AXIS < -30] POSSIBLE LEFT VENTRICULAR HYPERTROPHY [VOLTAGE CRITERIA PLUS LAE OR QRS WIDENING] POSSIBLE ANTERIOR MYOCARDIAL INFARCTION , OF INDETERMINATE AGE [30 ms Q WAVE IN V3/V4, OR R < 0.2 mV IN V4] INFERIOR INFARCT, AGE INDETERMINATE Compared to ECG 01/02/2024 16:16:52 Left-axis deviation now present Myocardial infarct finding still present Electronically Signed On 08-20-2024 14:40:36 CDT by Clay Sandoval M.D.
--- OUTSIDE RECORDS SUMMARY | 2024-08-20 10:39 | XMS_ITS | Referral Summary ---
Author Organization [facility] [address] [place] [address] Care Team Providers Care Protein Purification Scientist Name Role Phone Berta Barry MD Primary Care Provider [phone] Encounters Date Type Department Care Team Description 07/16/2024 Telephone [facility] Internal Medicine [address] [place] [address] Berta Barry MD Medical Records Request 07/09/2024 Telephone [facility] [address] 12th [place] [address] [place] [address] Latrice Freedman NP from Last 3 Months Allergies Active Allergy Reactions Criticality Noted Date Comments Milnacipran Unknown 10/12/2020 Trazodone Unknown 10/12/2020 Vilazodone Unknown 10/12/2020 Medications multivitamin tablet Take 1 tablet by mouth daily Active cholecalciferol (VITAMIN D-3) 25 mcg (1,000 unit) tablet Take 1 tablet (1,000 Units total) by mouth daily Active cetirizine (ZyrTEC) 10 mg tablet Take 1 tablet (10 mg total) by mouth daily Active rosuvastatin (CRESTOR) 5 mg tablet Take 1 tablet (5 mg total) by mouth daily 30 tablet 11 4 Active clobetasoL (TEMOVATE) 0.05 % ointment APPLY TOPICALLY TWO TIMES ADAY 30 g 4 Active furosemide (LASIX) 40 mg tablet Take 1 tablet (40 mg total) by mouth daily 90 tablet 1 5 Active dexAMETHasone (DECADRON) 4 mg tablet Take 1 tablet (4 mg) twice daily the day before and the day after chemotherapy for 3 cycles. 5 Active ondansetron (ZOFRAN) 8 mg tablet Take 1 tablet (8 mg total) by mouth every 8 (eight) hours as needed 5 Active lidocaine-prilo josee cream Apply topically 5 Active gabapentin (NEURONTIN) 300 mg capsule Take 1 capsule (300 mg total) by mouth 3 (three) times a day 5 Active folic acid (FOLVITE) 1 mg tablet Take 1 tablet (1 mg total) by mouth daily 5 Active famotidine (PEPCID) 20 mg tablet Take 1 tablet (20 mg total) by mouth daily 5 Active sodium chloride 1 gram tablet Take 1 tablet (1 g total) by mouth 5 Active benzonatate (TESSALON) 200 mg capsule Take 1 capsule (200 mg total) by mouth 3 (three) times a day as needed 5 Active prochlorperazin e (COMPAZINE) 10 mg tablet Take 1 tablet (10 mg total) by mouth every 6 (six) hours as needed 5 Active levothyroxine (SYNTHROID) 150 mcg tablet Take 1 tablet (150 mcg total) by mouth deputy sheriff chief before breakfast 90 tablet 1 5 Active tiZANidine (ZANAFLEX) 2 mg tablet Take 1 tablet (2 mg total) by mouth every 8 (eight) hours as needed for muscle spasms 90 tablet 5 Active ursodioL (GENOVEVA FORTE) 500 mg tabletIndicatio ns:Primary biliary cirrhosis (HCC) Take 1 tablet (500 mg total) by mouth 3 (three) times a day 300 tablet 1 5 Active Active Problems Problem Noted Date Diagnosed Date Dyslipidemia 08/19/2024 Pleural effusion 03/31/2024 Assessment & Plan (03/31/2024 4:51 PM EXPORT DOCUMENTS CLERK): 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 She was in the hospital recently. She underwent thoracoscopy. Patient has persistent pleural effusion. She has follow-up with a associate professor of english in 2 days. Advised to follow-up with the thoracic surgeon. 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 She was in the hospital recently for that. Pleural catheter was placed. Patient has follow- up in couple of days with the associate professor of english. Advised to follow-up with the thoracic surgeon as well. Bilateral leg edema 03/31/2024 Assessment & Plan (05/16/2024 9:46 AM CDT): Patient is on Lasix 20 mg daily and followed by the grant specialist Assessment & Plan (03/31/2024 4:49 PM EXPORT DOCUMENTS CLERK): Patient will be started on Lasix 40 mg daily. Will obtain blood work including electrolytes in 1-2 weeks Psoriasis 05/14/2023 Overview (05/14/2023): Lower back and [...] 10/10/2022 Assessment & Plan (03/13/2023 9:36 PM EXPORT DOCUMENTS CLERK): Slowly losing weight. Discussed changing injection site [...] complication, without long-term current use of insulin 03/01/2022 Assessment & Plan (05/16/2024 9:47 AM CDT): Patient is not on medications. She said her sugar dropped significantly after weight loss. Advised to have blood work done. Advised to have annual eye exam. Assessment & Plan (03/31/2024 4:52 PM EXPORT DOCUMENTS CLERK): Patient is not on medications. She said her sugar dropped significantly after weight loss. Will obtain hemoglobin A1c Assessment & Plan (12/13/2022 7:55 PM CDT): Uncontrolled. Last hemoglobin A1c 7.0 in 09/27/22. Fasting blood sugar running between 140-150. Prior to meal running 135-150 with 2 hour postprandial coming down to baseline. Begin trial of gLP (Radha). Monitor readings and follow up in 3 [...] cscope again- she has had done in [place] with Dr. Herrmann in last 2 years covid booster advised Other hydrocephalus 07/28/2021 Assessment & Plan (07/28/2021 11:39 AM CDT): Pt states she had a ct scan with hydrocephalus? And this is why she is on triamterene-hctz.. she was seeing a neurousrgeon, they didn't want to do surgery. They instructed her to come back when its life-limiting. Has been 5 years since she saw a neurosurgeon. We need records at least from pcp. Primary biliary cirrhosis 07/28/2021 Assessment & Plan (03/31/2024 4:52 PM EXPORT DOCUMENTS CLERK): Follow-up with a state fire marshal. She is maintained on Ursodiol Assessment & Plan (12/03/2023 10:21 AM CDT): [...] up Assessment & Plan (03/10/2022 6:28 PM EXPORT DOCUMENTS CLERK): Continue follow up with hepatology. Assessment & [...] Itching all over-zyrtec helps Liver doctor in [place]: Dr. Lopez Fibromyalgia 07/28/2021 Assessment & Plan (05/16/2024 9:47 AM CDT): Continue gabapentin Assessment & Plan (07/28/2021 11:47 AM CDT): Was seeing Dr. PARISH in [facility] in [facility] before Stable on long acting ultracet, would cont Family history of [place]'s disease 2 Assessment & Plan (07/28/2021 11:49 AM CDT): Brother has this Its presumed dad (who at 30) had evangelina dx. She has been tested, and she thinks she was told she would never have [place] Essential (primary) hypertension 10/21/2020 Assessment & Plan (05/16/2024 9:46 AM CDT): Blood pressure is stable without medications Assessment & Plan (03/31/2024 4:49 PM EXPORT DOCUMENTS CLERK): Blood pressure is stable without medications Assessment & Plan (12/13/2022 7:59 PM CDT): [...] Lasix Assessment & Plan (03/10/2022 6:27 PM EXPORT DOCUMENTS CLERK): Controlled/stable. Continue current meds and plan Assessment & Plan (09/08/2021 1:10 PM CDT): triamt/hctz Assessment & Plan (07/28/2021 11:39 AM CDT): Stable triamterene-hctz Acquired hypothyroidism 09/12/2019 Overview (07/28/2021): S/p HERNANDEZ for graves I the mid 89 Assessment & Plan (05/16/2024 9:46 AM CDT): Continue current dose of medication. Will continue to monitor Assessment & Plan (03/31/2024 4:49 PM EXPORT DOCUMENTS CLERK): Status post HERNANDEZ for Graves disease. She is maintained on levothyroxine Assessment & Plan (03/13/2023 9:35 PM EXPORT DOCUMENTS CLERK): Recheck TSH last checked 10/04 normal. Advised regarding TSH and thyroid functioning may fluctuate based on antacid use, changes in absorption due to DLP 1 Assessment & Plan (12/13/2022 8:00 PM CDT): Controlled/stable. Continue current meds and plan Assessment & Plan (03/10/2022 6:28 PM EXPORT DOCUMENTS CLERK): Controlled/stable. Continue current meds and plan Assessment [...] r nodule likely benign colloid nodule Immunizations Immunization Administration Dates Next Due Influenza, Quadrivalent, Spl it, Intramuscular 02/17/2019 Influenza, Quadrivalent, Spl it, Preservative Free, Intramuscular 12/13/2022,01/22/2018,10/20/2016 Influenza, Trivalent, Preser vative Free, Intramuscular 03/31/2024 Influenza, Unspecified 11/30/2023(Deferred: Sonia ent decision) Pneumococcal Conjugate PCV 13 09/08/2021 Pneumococcal Conjugate Pcv20 03/31/2024 Tdap 01/22/2018 Social History Tobacco Use Types Packs/Day Years Used Date Smoking Tobacco: Never Smokeless Tobacco: Never Tobacco Cessation:Counseling Given: Not Answered AUDIT-C Answer Date Recorded Q1: How often do you have a drink containing alcohol? Never 05/16/2024 Q2: How many drinks containi ng alcohol do you have on a typical day when you are drinking? Patient does not drink Q3: How often do you have si x or more drinks on one occasion? Never 05/16/2024 PHQ-2 Answer Date Recorded PHQ-2 Total Score [...] Reading Time Taken Comments Blood Pressure 110/70 05/16/2024 8:27 AM CDT Pulse 79 05/16/2024 8:27 AM CDT Temperature 37.1 C (98.7 F) 05/16/2024 8:27 AM CDT Respiratory Rate 18 05/16/2024 8:27 AM CDT Oxygen Saturation 99% 05/16/2024 8:27 AM CDT Inhaled Oxygen Concentration - - Weight 76.2 kg (168 lb) 05/16/2024 8:27 AM CDT Height 162.6 cm (5' 4) 05/16/2024 8:27 AM CDT Body Mass Index 28.84 05/16/2024 8:27 AM CDT Plan of Treatment Not on file Procedures Procedure Name Priority Date/Time Associated Diagnosis Comments EGFR Routine 05/16/2024 9:15 AM CDT Hyperlipidemia, mixed HEMOGLOBIN A1C Routine 05/16/2024 9:15 AM CDT Type 2 diabetes mellitus without complication, without long-term current use of insulin (HCC) LIPID PANEL Routine 05/16/2024 9:15 AM CDT Hyperlipidemia, mixed ALBUMIN CREATININE RATIO, URINE Routine 05/16/2024 9:11 AM CDT Type 2 diabetes mellitus without complication, without long-term current use of insulin (HCC) SCREENING MAMMOGRAM BILATERAL W TITA Schedule Routine, Read Routine (OP Routine) 05/15/2024 3:48 PM CDT Screening mammogram, encounter for HM DIABETES EYE EXAM Routine 03/10/2022 HM COLONOSCOPY Routine 09/22/2020 from Last 3 Months or Most Recently Relevant to Health Maintenance Results * eGFR (05/16/2024 9:15 AM CDT) eGFR >90 >=60 mL/min/1. 73 m2 Comment: Interpretive Data Reference Interval Normal >/= 90 mL/min/1.73m2 Mildly decreased* 60 - 89 mL/min/1.73m2 Mildly to moderately decreased 45 - 59 mL/min/1.73m2 Moderately to severely decreased 30 - 44 mL/min/1.73m2 Severely decreased 15 - 29 mL/min/1.73m2 Kidney Failure < 15 mL/min/1.73m2 *Relative to young adult level Estimated glomerular [...] Current interpretive data was last reviewed 2020. Blood 05/16/2024 9:15 AM CDT 05/16/2024 9:19 AM CDT Berta Barry MD LAB BLOOD ORDERABLES Final Result [facility] [address] [place] [address] * (ABNORMAL) Hemoglobin A1c (05/16/2024 9:15 AM CDT) Hgb A1C 6.7(H) 4.0 - 5.6 % Estimated Average Glucose 146 mg/dL ZENOBIA SALINAS Comment: The ADA recommends reporting an estimated Average Glucose (eAG) with all Hemoglobin A1c results using the equation derived from a study of 507 normal and diabetic adults. Minority populations were underrepresented and children were not included. (Diabetes Care 31:6579-0660, 2008). The eAG is not equivalent to a fasting glucose. Blood 05/16/2024 9:15 AM CDT 05/16/2024 9:19 AM CDT Berta Barry MD LAB BLOOD ORDERABLES Final Result [facility] [address] [facility] [place] [address] * (ABNORMAL) Lipid panel (05/16/2024 9:15 AM CDT) Cholesterol 204(H) 30 - 199 mg/dL Comment: Interpretive Data Ages < or = 19 years Acceptable: <170 mg/dL Borderline high: 170-199 mg/dL High: >or= 200 mg/dL Ages > or = 20 years Desirable: <200 mg/dL Borderline high: 200-239 mg/dL High: >or= 240 mg/dL Literature References: 1. Expert Panel on Integrated Guidelines for Cardiovascular Health and Risk Reduction in Children and Adolescents. Pediatrics 2011;128:S213 2. NCEP Expert Panel. Circulation 2004;110:227 Current Interpretive Data was last revised on 2017. Triglycerides 108 <=149 mg/dL ZENOBIA Comment: Interpretive Data Ages < or = 9 years Acceptable: <75 mg/dL Borderline high: 75-99 mg/dL High: >or= 100 mg/dL Ages 10 to 20 years Acceptable: <90 mg/dL Borderline high: 90-129 mg/dL High: >or= 130 mg/dL Ages > or = 20 years Desirable: <150 mg/dL Borderline high: 150-199 mg/dL High: 200-499 mg/dL Very high: >or= 499 mg/dL Literature References: 1. Expert Panel on Integrated Guidelines for Cardiovascular Health and Risk Reduction in Children and Adolescents. Pediatrics 2011;128:S213 2. NCEP Expert Panel. Circulation 2004;110:227 Current Interpretive Data was last revised on 2017. HDL 66 >=40 mg/dL ZENOBIA Comment: Interpretive Data Ages < or = 19 years Acceptable: >45 mg/dL Borderline low: 40-45 mg/dL Low: <40 mg/dL Ages > or = 20 years Desirable: >or= 60 mg/dL Low: <40 mg/dL Literature References: 1. Expert Panel on Integrated Guidelines for Cardiovascular Health and Risk Reduction in Children and Adolescents. Pediatrics 2011;128:S213 2. NCEP Expert Panel. Circulation 2004;110:227 Current Interpretive Data was last revised on 2017. LDL, calculated 119 <=129 mg/dL ZENOBIA SALINAS Comment: Interpretive Data Ages < or = 19 years Acceptable: <110 mg/dL Borderline high: 110-129 mg/dL High: >or= 130 mg/dL Ages > or = 20 years Optimal: <100 mg/dL Near optimal: 100-129 mg/dL Borderline high: 130-159 mg/dL High: >160 mg/dL Calculated using the Umberto LDL-C estimating equation. This equation was implemented on 2023. Prior to this date LDL-C was estimated using the Friedewald equation. Literature References: 1. Expert Panel on Integrated Guidelines for Cardiovascular Health and Risk Reduction in Children and Adolescents. Pediatrics 2011;128:S213 2. NCEP Expert Panel. Circulation 2004;110:227 3. Umberto Muhammad et al. MAXWELL Cardiol. 2019June 12;5(5):540-548. doi: 10.1001/jamacardio.2020.0013 Current Interpretive Data was last revised on 2023. Non-HDL Cholesterol 138 mg/dL ZENOBIA SALINAS Comment: Interpretive Data Ages < or = 19 years Acceptable: <120 mg/dL Borderline high: 120-144 mg/dL High: >145 mg/dL Ages > or = 20 years When triglycerides are >200 mg/dL, Non-HDL cholesterol is a secondary target of therapy with treatment goals that are 30 mg/dL greater than the LDL cholesterol target. Literature References: 1. Expert Panel on Integrated Guidelines for Cardiovascular Health and Risk Reduction in Children and Adolescents. Pediatrics 2011;128:S213 2. NCEP Expert Panel. Circulation 2004;110:227 Current Interpretive Data was last revised on 2017. Chol/HDL ratio 3 ZENOBIA SALINAS Blood 05/16/2024 9:15 AM CDT 05/16/2024 9:19 AM CDT Narrative ZENOBIA SALINAS - 05/16/2024 9:58 AM CDT Has the patient been fasting for 8 hours or more?->Yes Berta Barry MD LAB BLOOD ORDERABLES Final Result Performing Organization Address [facility] de Phone Number [facility] [address] [place] [address] * Albumin Creatinine Ratio, Urine (05/16/2024 9:11 AM CDT) Albumin Ur 26.0 mg/L Comment: Interpretive Data No reference range established. Current interpretive data was last revised 2018. Creatinine Ur 90.5 mg/dL ZENOBIA Comment: Interpretive Data No reference range established. Current interpretive data was last revised 2018. Albumin Creatinine Ratio, Ur 29 1 - 29 mg/g ZENOBIA Urine 05/16/2024 9:11 AM CDT 05/16/2024 9:50 AM CDT Berta Barry MD LAB URINE ORDERABLES Final Result Performing Organization Address [facility] de Phone Number [facility] [address] [place] [address] * Screening Mammogram Bilateral W Tita (05/15/2024 3:48 PM CDT) Anatomical Region Laterality Modality Breast Bilateral Mammography Impressions 05/15/2024 4:56 PM CDT BI-RADS ATLAS category (overall): 1 - Negative There is no mammographic evidence of malignancy. A 1 year screening mammogram is recommended. The patient has been or will be contacted. We recommend annual screening mammography for women at average risk of breast cancer beginning at age 40, based on guidelines of the [place] [employer] (ACR Practice Parameter for the Performance of Screening and Diagnostic Mammography) and [place] [employer]. For women with and elevated risk of breast cancer, please refer to the ACR Practice Parameter for specific screening recommendations. The patient will be entered into a reminder system with a target due date of 1 year for her next screening exam. Narrative 05/15/2024 4:56 PM CDT Screening Mammogram Bilateral W Tita: 05/15/24 The study was acquired using full field digital technology and interpreted from soft copy. 2D digital mammographic views, as well as 3D digital tomosynthesis were performed in the CC and MLO projections. This study was resulted using Computer-Aided Detection (CAD). CLINICAL: Screening mammogram, encounter for. No relevant medical history has been documented for this patient. No known family history of breast cancer. COMPARISONS: 01/31/2023 Screening Mammogram Bilateral W Tita 12/06/2021 Screening Mammogram Bilateral W Tita 09/16/2020 Breast Imaging Screening Outside Reference BREAST TISSUE: There are scattered areas of fibroglandular density. FINDINGS: No suspicious masses, suspicious calcifications, or other suspicious findings are seen within either breast. There has been no suspicious change. [facility] Screening Mammogram IMG MAMMO PROCEDURES Fi nal Result * DIABETES EYE EXAM (03/10/2022) SCRIBED DIABETIC DILATED EYE EXAM Normal [facility] Provider MD HEALTH MAINTENANCE Final Result * COLONOSCOPY (09/22/2020) [facility] Provider MD HEALTH MAINTENANCE Final Result from Last 3 Months or Most Recently Relevant to Health Maintenance Insurance [employer] OOS Bit9 ACCESS OOS Bit9 ACCESS OOS Care Teams Protein Purification Scientist Relationship Specialty Start Date End Date Berta Barry MD [address] [place] [address] PCP - General Internal Medicine 03/31/24
--- OUTSIDE RECORDS SUMMARY | 2024-08-20 10:39 | XMS_ITS ---
Author Organization [facility] Address [address] [place] [address] Care Team Providers Care Senior Net Developer Architect Name Role Phone Berta Barry MD Primary Care Provider [phone] Active Problems Problem Noted Date Diagnosed Date Hypervolemia 06/28/2024 Hypokalemia 06/19/2024 Anemia due to chemotherapy 05/29/2024 Leg swelling 04/04/2024 Mesothelioma of right lung 03/20/2024 SIADH (syndrome of inappropriate ADH production) 2024 Protein-calorie malnutrition, moderate Hypotension 03/15/2024 SONDRA (acute kidney injury) 03/15/2024 Cough 03/13/2024 Dyspnea 03/13/2024 Pulmonary nodules/lesions, multiple 03/13/2024 Hyponatremia 03/13/2024 Recurrent right pleural effusion 03/13/2024 Atelectasis of right lung 03/13/2024 VALADEZ (dyspnea on exertion) 03/13/2024 Type 2 diabetes mellitus wit hout complication, without long-term current use of insulin 03/01/2022 Primary biliary cirrhosis 07/28/2021 Essential (primary) hypertension 10/21/2020 Acquired hypothyroidism 09/12/2019 Overview (03/13/2024): S/p HRENANDEZ for graves I the mid 89 Current Treatment and Therapy Plans CYANOCOBALAMIN (VIT B-12) EVERY 28 DAYS* Plan Start Date:04/15/2024 Plan Provider:Myah Ambrosio ANP Linked Problems Mesothelioma of right lung ( CMS/HCC) Treatment Medications No medications scheduled. OP BLOOD PRODUCT TRANSFUSION* Plan Start Date:06/13/2024 Plan Provider:Veda Barrios PA Linked Problems Mesothelioma of right lung ( CMS/HCC)Anemia due to chemotherapy Treatment Medications No medications scheduled. OP ONC LUNG (NSCLC)_PEMBROLIZUMAB_PEMETREXED_CARBOPLATIN_EVERY 21 DAYS X 6_FOLLOWED BY PEMBROLIZUMAB_EVERY 21 DAYS X 35 CYCLES* Plan Start Date:04/08/2024 Plan Provider:Ivette Richardson MD Linked Problems Mesothelioma of right lung ( CMS/HCC)Primary biliary cirrhosis (CMS/HCC) Treatment Medications Current Day (Day 1 , Cycle 7 - Planned for 08/21/2024) Next Day (Day 1, Cycle 8 - Planned for 09/11/2024) CARBOplatin (PARAPLATIN) IVPBpembrolizumab (KEYTRUDA)PEMEtrexed disodium (ALIMTA) IVPB pembrolizumab (KEYTRUDA) 200 mg in sodium chloride 0.9% 108 mL IVPB (PREMIX) pembrolizumab (KEYTRUDA) 200 mg in sodium chloride 0.9% 108 mL IVPB (PREMIX) Other Current Plans OP ONC DARBEPOETIN (ARANESP) FOR CHEMOTHERAPY-INDUCED ANEMIA* Plan Start Date: 06/05/2024 Plan Provider:Ivette Richardson MD Linked Problems Anemia due to chemotherapyHy pokalemia Treatment Medications No medications scheduled. Past Treatment and Therapy Plans No past plan information found. Lifetime Dose Tracking * Chemical Lifetime Dose Automatic Entry Manual Entr y Effective Dose 43.25 mSv 43.25 mSv 0 mSv Total DLP 2,287.5 DLP 2,287.5 DLP 0 DLP CTDIvol Max 43.46 mGy 43.46 mGy 0 mGy CTDIvol Min 12.85 mGy 12.85 mGy 0 mGy Resolved Problems Problem Noted Date Diagnosed Date Resolved Date Other shock 03/15/2024 06/28/2024
--- OUTSIDE RECORDS SUMMARY | 2024-08-20 10:39 | XMS_ITS | Encounter Summary ---
Author Organization [facility] Address [address] [place] [address] Phone Care Team Providers Care Wood Finisher Name Role Phone Maria Ines Garrido MD Primary Care Provider [phone] James Gentile MD Primary Care Provider [phone] Yari Castellano MD Primary Care Provider [phone] Unknown, Notinfile Primary Care Provider Unavail able Berta Barry MD Primary Care Provider [phone] Encounter Details Date Type Department Care Team [...] on filedocumented in this encounter Care Teams Wood Finisher Relationship Specialty Start Date End Date Maria Ines Garrido MD [address] [place] [address] [phone] PCP - General Internal Medicine 07/14/21 02/28/22 James Gentile MD [address] [place] [id number] PCP - General Internal Medicine 03/01/22 01/17/24 Yari Castellano MD [address] [place] [id number] PCP - General Internal Medicine 01/18/24 03/24/24 Unknown, Notinfile PCP - General 03/25/24 03/30/24 Berta Barry MD [address] [address] PCP - General Internal Medicine 03/31/24 documented as of this encounter
--- OUTSIDE RECORDS SUMMARY | 2024-08-20 10:39 | XMS_ITS | Clinical Summary ---
Author Organization [facility] Address [address] [place] [address] Care Team Providers Care Fabricator Foam Rubber Name Role Phone Anette Gutierrez MD Primary Care Provider [phone] Eri Serna MD Unavailable [phone] Edilma Chun [facility]- Unavailable Allergies Active Allergy Reactions Criticality Noted [...] on file Legal Sex Female 9:37 PM AUTOCAD Gender Identity Not on file Sexual Orientation Not on file Occupation Industry Job Start Date Job End Date Not on file Not on file Not on file Not on file Last Filed Vital Signs Vital Sign Reading Time Taken Comments Blood Pressure 130/80 10/14/2020 1:12 PM CDT Pulse 68 10/14/2020 1:12 PM CDT Temperature 36.4 C (97.6 F) 08/10/2020 2:39 PM CDT Respiratory Rate 16 10/14/2020 1:12 PM CDT Oxygen Saturation 98% 10/14/2020 1:12 PM CDT Inhaled Oxygen Concentration - - Weight 96.2 kg (212 lb) 10/21/2020 1:00 PM CDT Height 162.6 cm (5' 4) 10/21/2020 1:00 PM CDT Body Mass Index [...] wi th HPV 1990 Mammogram Screening 2000 Pneumococcal Vaccine: 50+ Years (1 of 1 - PCV) 2010 Zoster Vaccines (1 of 2) 2010 Colorectal Cancer Screening Colonoscopy (10 Years) 07/29/2023 07/28/2013, 07/28/2013 COVID-19 Vaccine (1 - 2023-2 5 season) 2023 RSV Immunization or 60+ Years (1 - 1-dose 75+ series) 2035 Meningococcal B Vaccine Aged Out No l onger eligible based on patient's age to complete this topic Meningococcal Vaccine Aged Out No gracie cristina [...] Scanned SCANNING Final Result Performing Organization Address City/State/[facility] Phone Number [facility] from Last 3 Months or Most Recently Relevant to Health Maintenance Insurance [facility] [email or web address]] Care Teams Fabricator Foam Rubber Relationship Specialty Start Date End Date Anette Gutierrez MD [address] [place] [address] PCP - General INTERNAL MEDICINE 05/22/18 Eri Serna MD [address] [place] [address] ENDOCRINOLOGY 05/22/18 Edilma Chun, HIGHWAY ENGINEER- [address] [place] [address] Jeremiah Sales Representative Printing NURSE PRACTITIONER 10/08/20
--- OUTSIDE RECORDS SUMMARY | 2024-08-20 10:39 | XMS_ITS | Encounter Summary ---
Author Organization [facility] Address [address] [place] [address] Phone Care Team Providers Care Auto Dealer Name Role Phone Maria Ines Garrido MD Primary Care Provider [phone] James Gentile MD Primary Care Provider [phone] Yari Castellano MD Primary Care Provider [phone] Unknown, Notinfile Primary Care Provider Unavail able Berta Barry MD Primary Care Provider [phone] Encounter Details Date Type Department Care Team (Late st Contact Info) Description 01/09/2017 Orders Only [facility] Scanning, Provider Social History Tobacco Use [...] on filedocumented in this encounter Care Teams Auto Dealer Relationship Specialty Start Date End Date Maria Ines Garrido MD [facility] [address] PCP - General Internal Medicine 07/14/21 02/28/22 James Gentile MD [address] [place] [address] PCP - General Internal Medicine 03/01/22 01/17/24 Yari Castellano MD [address] [place] [address] PCP - General Internal Medicine 01/18/24 03/24/24 Unknown, Notinfile PCP - General 03/25/24 03/30/24 Berta Barry MD [address] [address] PCP - General Internal Medicine 03/31/24 documented as of this encounter
--- OUTSIDE RECORDS SUMMARY | 2024-08-20 10:39 | XMS_ITS | Clinical Summary ---
Author Organization [facility] [id number] [facility] Address [address] [place] [address] Care Team Providers Care Band Head Saw Operator Name Role Phone Berta Barry MD Primary Care Provider [phone] Allergies Active Allergy Reactions Criticality Noted Date [...] 1 tablet (150 mcg total) by mouth livestock speculator before breakfast 90 tablet 1 5 Active tiZANidine (ZANAFLEX) 2 mg tablet Take 1 tablet (2 mg total) by mouth every 8 (eight) hours as needed for muscle spasms 90 tablet 5 Active ursodioL (NELLY FORTE) 500 mg tabletIndicatio ns:Primary biliary cirrhosis (HCC) Take 1 tablet (500 mg total) by mouth 3 (three) times a day 300 tablet 1 5 Active Active Problems Problem Noted Date Diagnosed Date Dyslipidemia 08/19/2024 Pleural effusion 03/31/2024 Assessment & Plan (03/31/2024 4:51 PM MANAGER CHANNEL): 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 She was in the hospital recently. She underwent thoracoscopy. Patient has persistent pleural effusion. She has follow-up with a belt polisher in 2 days. Advised to follow-up with the thoracic surgeon. Mesothelioma (pleural) 03/31/2024 Assessment & Plan (05/16/2024 9:47 AM CDT): Followed by the belt polisher and the oncologist Assessment & Plan (03/31/2024 4:51 PM MANAGER CHANNEL): Patient with recent diagnosis of mesothelioma and right pleural effusion. She was in the hospital recently for that. Pleural catheter was placed. Patient has follow- up in couple of days with the belt polisher. Advised to follow-up with the thoracic surgeon as well. Bilateral leg edema 03/31/2024 Assessment & Plan (05/16/2024 9:46 AM CDT): Patient is on Lasix 20 mg daily and followed by the director of integrated marketing Assessment & Plan (03/31/2024 4:49 PM MANAGER CHANNEL): Patient will be started on Lasix 40 [...] 10/10/2022 Assessment & Plan (03/13/2023 9:36 PM MANAGER CHANNEL): Slowly losing weight. Discussed changing injection site [...] exam. Assessment & Plan (03/31/2024 4:52 PM MANAGER CHANNEL): Patient is not on medications. She said [...] cscope again- she has had done in [place] with Dr. Herrmann in last 2 years [...] 07/28/2021 Assessment & Plan (03/31/2024 4:52 PM MANAGER CHANNEL): Follow-up with a lusterer. She is maintained on Ursodiol Assessment & [...] up Assessment & Plan (03/10/2022 6:28 PM MANAGER CHANNEL): Continue follow up with hepatology. Assessment & [...] Itching all over-zyrtec helps Liver doctor in [place]: Dr. Lopez Fibromyalgia 07/28/2021 Assessment & Plan (05/16/2024 9:47 AM CDT): Continue gabapentin Assessment & Plan (07/28/2021 11:47 AM CDT): Was seeing [facility]. PARISH in [facility] before Stable on long acting ultracet, would cont Family history of Harmon's disease 2 Assessment & Plan (07/28/2021 11:49 AM CDT): Brother has this Its presumed dad (who at 30) had evangelina dx. She has been tested, and she thinks she was told she would never have [place] Essential (primary) hypertension 10/21/2020 Assessment & Plan (05/16/2024 9:46 AM CDT): Blood pressure is stable without medications Assessment & Plan (03/31/2024 4:49 PM MANAGER CHANNEL): Blood pressure is stable without medications Assessment [...] Lasix Assessment & Plan (03/10/2022 6:27 PM MANAGER CHANNEL): Controlled/stable. Continue current meds and plan Assessment & Plan (09/08/2021 1:10 PM CDT): triamt/hctz Assessment & Plan (07/28/2021 11:39 AM CDT): Stable triamterene-hctz Acquired hypothyroidism 09/12/2019 Overview (07/28/2021): S/p HERNANDEZ for graves I the mid Assessment & Plan (05/16/2024 9:46 AM CDT): Continue current dose of medication. Will continue to monitor Assessment & Plan (03/31/2024 4:49 PM MANAGER CHANNEL): Status post HERNANDEZ for Graves disease. She is maintained on levothyroxine Assessment & Plan (03/13/2023 9:35 PM MANAGER CHANNEL): Recheck TSH last checked 10/04 normal. Advised regarding TSH and thyroid functioning may fluctuate based on antacid use, changes in absorption due to DLP 1 Assessment & Plan (12/13/2022 8:00 PM CDT): Controlled/stable. Continue current meds and plan Assessment & Plan (03/10/2022 6:28 PM MANAGER CHANNEL): Controlled/stable. Continue current meds and plan Assessment [...] Type Department Care Team Description 07/16/2024 Telephone [facility] Internal Medicine [address] [place] [address] Berta Barry MD Medical Records Request 07/09/2024 Telephone [facility] Gasteroenterology [facility] [address] [place] [address] [place] [address] Lartice Freedman NP from Last 3 Months Immunizations Immunization Administration Dates Next Due Influenza, Quadrivalent, Spl it, Intramuscular 02/17/2019 Influenza, Quadrivalent, Spl it, Preservative Free, Intramuscular 12/13/2022,01/22/2018,10/20/2016 Influenza, Trivalent, Preser vative Free, Intramuscular 03/31/2024 Influenza, Unspecified 11/30/2023(Deferred: Sonia ent decision) Pneumococcal Conjugate PCV 13 09/08/2021 Pneumococcal Conjugate Pcv20 03/31/2024 Tdap 01/22/2018 Surgical History Surgery Date Site/Laterality Comments BREAST BIOPSY Left FL FLUORO GUIDED LUMBAR PUNCTURE 05/01/2022 Right SECTION 12/04/78 11/08/87 Medical History Medical History Date Comments Diabetes mellitus (HCC) Arthritis Thyroid disease Allergic Autoimmune disease Essential (primary) hypertension 10/21/2020 Mesothelioma (HCC) Family History Medical History Relation Name Comments Harmon's disease Brother Cerebrial Hemmorage Father Cancer Mother [...] 05/16/2024 8:27 AM CDT Plan of Treatment Health Maintenance Due Date Last Done Comments Cervical Cancer Screening 1960 Hepatitis C Screening 1960 Hepatitis B Screening 1978 Zoster Vaccine (1 of 2) 2010 Regular Well Visit/Exam 18-64 09/08/2022 09/08/2021 Covid-19 Vaccine (2023-2 5 season) 2023 02/01/2021, 06/08/2020, 05/11/2020 Foot Exam 12/14/2023 12/13/2022, 09/08/2021 Dilated Eye Exam 03/10/2024 03/10/2022 Depression Screening 07/09/2024 07/10/2023, 05/14/2023, 04/11/2023, Additional history exists Influenza Vaccine (#1) 2024 , 12/13/2022, 02/17/2019, Additional history exists Hemoglobin A1C 11/15/2024 05/16/2024, 02/14, 03/13/2023, Additional history exists Breast Cancer Screening-Mammogram 05/15/2025 05/15/2024, 01/31/2023, 12/06/2021 Albumin Creatinine Ratio, Urine 05/16/2025 , 07/10/2023 Lipid Panel 05/16/2025 05/16/2024, 06/13, 07/28/2021 eGFR 05/16/2025 05/16/2024, 02/14, 11/30/2022, Additional history exists DTaP/Tdap/Td Vaccine (2 - Td or Tdap) 01/23/2028 01/22/2018 Colon Cancer Screening-Colonoscopy 09/22/20302020 Pneumococcal vaccine <65 Completed 03/31/2024, 08/13 Procedures Procedure Name Priority Date/Time Associated Diagnosis [...] of insulin (HCC) SCREENING MAMMOGRAM BILATERAL W SAUL Schedule Routine, Read Routine (OP Routine) 05/15/2024 3:48 PM CDT Screening mammogram, encounter for DIABETES EYE EXAM [...] 9:15 AM CDT 05/16/2024 9:19 AM CDT us Berta Barry MD LAB BLOOD ORDERABLES Final Result ZENOBIA SALINAS [address] Department [place] [address] * (ABNORMAL) Hemoglobin A1c (05/16/2024 9:15 AM CDT) Hgb A1C 6.7(H) 4.0 - 5.6 % Estimated Average Glucose 146 mg/dL ZENOBIA SALINAS Comment: The ADA recommends reporting an estimated Average Glucose (eAG) with all Hemoglobin A1c results using the equation derived from a study of 507 normal and diabetic adults. Minority populations were underrepresented and children were not included. (Diabetes Care 31:3384-9396, 2008). The eAG is not equivalent to a fasting glucose. Blood 05/16/2024 9:15 AM CDT 05/16/2024 9:19 AM CDT Berta Barry MD LAB BLOOD ORDERABLES Final Result ZENOBIA [address] Department [place] [address] * (ABNORMAL) Lipid panel (05/16/2024 9:15 AM [...] 2017. LDL, calculated 119 <=129 mg/dL ZENOBIA Comment: Interpretive Data Ages [...] NCEP Expert Panel. Circulation 2004;110:227 3. Umberto Maldonado al. MAXWELL Cardiol. 2019June 12;5(5):540-548. doi: 10.1001/jamacardio.2020.0013 Current Interpretive Data was last revised on 2023. Non-HDL Cholesterol 138 mg/dL ZENOBIA Comment: Interpretive Data Ages < [...] last revised on 2017. Chol/HDL ratio 3 [facility] Blood 05/16/2024 9:15 AM CDT 05/16/2024 9:19 AM CDT Narrative [facility] - 05/16/2024 9:58 AM CDT Has the patient been fasting for 8 hours or more?->Yes Berta Barry MD LAB BLOOD ORDERABLES Final Result Performing Organization Address [facility] Co de Phone Number [address] [employer] [address] * Albumin Creatinine Ratio, Urine (05/16/2024 9:11 AM CDT) Albumin Ur 26.0 mg/L Comment: Interpretive Data No reference range established. Current interpretive data was last revised 2018. Creatinine Ur 90.5 mg/dL [facility] Comment: Interpretive Data No reference range established. Current interpretive data was last revised 2018. Albumin Creatinine Ratio, Ur 29 1 - 29 mg/g [facility] Urine 05/16/2024 9:11 AM CDT 05/16/2024 9:50 AM CDT Berta Barry MD LAB URINE ORDERABLES Final Result Performing Organization Address [facility] de Phone Number [address] [address] * Screening Mammogram Bilateral W Saul (05/15/2024 3:48 PM CDT) Anatomical Region Laterality [...] age 40, based on guidelines of the [employer] (ACR Practice Parameter for the Performance of Screening and Diagnostic Mammography) and [employer]. For women with and elevated risk of breast cancer, please refer to the ACR Practice Parameter for specific screening recommendations. The patient will be entered into a reminder system with a target due date of 1 year for her next screening exam. Narrative 05/15/2024 4:56 PM CDT Screening Mammogram Bilateral W Saul: 05/15/24 The study was acquired using full [...] cancer. COMPARISONS: 01/31/2023 Screening Mammogram Bilateral W Saul 12/06/2021 Screening Mammogram Bilateral W Saul 09/16/2020 Breast Imaging Screening Outside Reference BREAST TISSUE: There are scattered areas of fibroglandular density. FINDINGS: No suspicious masses, suspicious calcifications, or other suspicious findings are seen within either breast. There has been no suspicious change. Self Screening Mammogram IMG MAMMO PROCEDURES Fi nal Result * DIABETES EYE EXAM (03/10/2022) SCRIBED DIABETIC DILATED EYE EXAM Normal [facility] Provider HEALTH MAINTENANCE Final Result * COLONOSCOPY (09/22/2020) [facility] Provider HEALTH MAINTENANCE Final Result from Last 3 Months or Most Recently Relevant to Health Maintenance Insurance [employer] Care Teams Band Head Saw Operator Relationship Specialty Start Date End Date Berta Barry MD [address] [place] [address] PCP - General Internal Medicine 03/31/24
--- OUTSIDE RECORDS SUMMARY | 2024-08-20 10:39 | XMS_ITS ---
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 She was in the hospital recently. She underwent thoracoscopy. Patient has persistent pleural effusion. She has follow-up with a math tutor in 2 days. Advised to follow-up with the thoracic surgeon. Mesothelioma (pleural) 03/31/2024 Assessment & Plan (05/16/2024 9:47 AM CDT): Followed by the math tutor and the oncologist Assessment & Plan (03/31/2024 4:51 PM RIBBON BLOCKMAKER): Patient with recent diagnosis of mesothelioma and right pleural effusion. She was in the hospital recently for that. Pleural catheter was placed. Patient has follow- up in couple of days with the math tutor. Advised to follow-up with the thoracic surgeon as well. Bilateral leg edema 03/31/2024 Assessment & Plan (05/16/2024 9:46 AM CDT): Patient is on Lasix 20 mg daily and followed by the manager developmental Assessment & Plan (03/31/2024 4:49 PM RIBBON BLOCKMAKER): Patient will be started on Lasix 40 [...] 10/10/2022 Assessment & Plan (03/13/2023 9:36 PM RIBBON BLOCKMAKER): Slowly losing weight. Discussed changing injection site [...] exam. Assessment & Plan (03/31/2024 4:52 PM RIBBON BLOCKMAKER): Patient is not on medications. She said [...] cscope again- she has had done in [place] with Dr. Herrmann in last 2 years [...] 07/28/2021 Assessment & Plan (03/31/2024 4:52 PM RIBBON BLOCKMAKER): Follow-up with a laminator. She is maintained on Ursodiol Assessment & [...] up Assessment & Plan (03/10/2022 6:28 PM RIBBON BLOCKMAKER): Continue follow up with hepatology. Assessment & [...] Itching all over-zyrtec helps Liver doctor in [place]: Dr. Lopez Fibromyalgia 07/28/2021 Assessment & Plan (05/16/2024 9:47 AM CDT): Continue gabapentin Assessment & Plan (07/28/2021 11:47 AM CDT): Was seeing Dr. PARISH in [facility] before Stable on long acting ultracet, would cont Family history of [place]'s disease Assessment & Plan (07/28/2021 11:49 AM CDT): Brother has this Its presumed dad (who at 30) had evangelina dx. She has been tested, and she thinks she was told she would never have [place] Essential (primary) hypertension 10/21/2020 Assessment & Plan (05/16/2024 9:46 AM CDT): Blood pressure is stable without medications Assessment & Plan (03/31/2024 4:49 PM RIBBON BLOCKMAKER): Blood pressure is stable without medications Assessment [...] Lasix Assessment & Plan (03/10/2022 6:27 PM RIBBON BLOCKMAKER): Controlled/stable. Continue current meds and plan Assessment & Plan (09/08/2021 1:10 PM CDT): triamt/hctz Assessment & Plan (07/28/2021 11:39 AM CDT): Stable triamterene-hctz Acquired hypothyroidism 09/12/2019 Overview (07/28/2021): S/p HERNANDEZ for graves I the mid Assessment & Plan (05/16/2024 9:46 AM CDT): Continue current dose of medication. Will continue to monitor Assessment & Plan (03/31/2024 4:49 PM RIBBON BLOCKMAKER): Status post HERNANDEZ for Graves disease. She is maintained on levothyroxine Assessment & Plan (03/13/2023 9:35 PM RIBBON BLOCKMAKER): Recheck TSH last checked 10/04 normal. Advised regarding TSH and thyroid functioning may fluctuate based on antacid use, changes in absorption due to DLP 1 Assessment & Plan (12/13/2022 8:00 PM CDT): Controlled/stable. Continue current meds and plan Assessment & Plan (03/10/2022 6:28 PM RIBBON BLOCKMAKER): Controlled/stable. Continue current meds and plan Assessment [...] 1 r nodule likely benign colloid nodule Current Treatment and Therapy Plans No current plan information found. Past Treatment and Therapy Plans No past plan information found. Lifetime Dose Tracking * Chemical Lifetime Dose Automatic Entry Manual Entr y Fluoro Time 0.3 minutes 0.3 minutes 0 minutes Air kerma at the reference point (Ka,r) 1.9 mGy 1 .9 mGy 0 mGy
--- OUTSIDE RECORDS SUMMARY | 2024-08-20 10:39 | XMS_ITS | Encounter Summary ---
Author Organization [facility] Address [address] [place] [address] Care Team Providers Care Editorial Specialist Name Role Phone Berta Barry MD Primary Care Provider [phone] Encounter Details Date Type Department Care Team (Late Contact Info) Description 08/20/2024 External Device Data [facility] ABSTRACTION Provider, Abstract NO ADDRESS ON FILE Social History Tobacco Use Types Packs/Day Years Used Date Smoking Tobacco: Never Smokeless Tobacco: Never Alcohol Use Standard Drinks/Week Comments Never 0 (1 standard drink = 0.6 oz pur e alcohol) Feeling Safe Answer Date Recorded Are you in a relationship wi th someone who hurts you emotionally and/or physically? No 04/17/2024 Food Insecurity Answer Date Recorded Patient needs follow up regardin 06/04/2024 Transportation Needs Answer Date Record ed Patient needs follow up regardin 06/04/2024 Housing Stability Answer Date Recorded Social/Environmental Concerns No concerns Utility Needs Answer Date Recorded Patient needs follow up regardin 06/04/2024 Comments No Sex and Gender Information Value Date Recorded Sex Assigned at Not on file Legal Sex Female 2:50 PM BOARD WRITER Gender Identity Not on file Sexual Orientation Not on file documented as of this encounter Plan of Treatment Upcoming Encounters Date Type Department Care Team (Late Contact Info) Description 08/21/2024 10:10 AM CDT Appointment [facility] Laboratory Services Ming Rowley [facility] [address] [place] [address] 08/21/2024 10:30 AM CDT Office Visit [facility] Oncology and Hematology [facility] [address] [place] [address] Ivette Richardson MD [address] [place] [address] 08/21/2024 11:00 AM CDT Hospital Encounter [facility] 3rd Fl [address] [place] [address] 08/28/2024 11:45 AM CDT Appointment [facility] Infusion Services [facility] [address] [place] [address] [facility] 08/28/2024 1:00 PM CDT Appointment [facility] Imaging Services [facility] [address] [place] [phone] Ivette Richardson MD [address] [place] [address] documented as of this encounter Visit Diagnoses Not on filedocumented in this encounter Care Teams Editorial Specialist Relationship Specialty Start Date End Date Berta Barry MD [address] [place] [address] [place] [phone] PCP - General Internal Medicine 05/29/24 documented as of this encounter
--- OUTSIDE RECORDS SUMMARY | 2024-08-20 10:39 | XMS_ITS | Encounter Summary ---
Author Organization [facility] Address [address] [place] [address] Care Team Providers Care Clerk Funeral Detail Name Role Phone Berta Barry MD Primary Care Provider [phone] Encounter Details Date Type Department Care Team (Late Contact Info) Description 07/11/2024 Results Follow-Up [facility] Oncology and Hematology [facility] [place] [address] [facility] [place] [address] Ivette Richardson MD [address] [facility] [address] [place] [address] TSH REFLEXIVE Social History Tobacco Use Types Packs/Day Years [...] on file Legal Sex Female 2:50 PM PRIVATE PILOT Gender Identity Not on file Sexual Orientation Not on file documented as of this encounter Plan of Treatment Upcoming Encounters Date Type Department Care Team (Late Contact Info) Description 08/21/2024 10:10 AM CDT Appointment [facility] Laboratory Services [facility] [place] [address] [place] [phone] 08/21/2024 10:30 AM CDT Office Visit [facility] Oncology and Hematology [facility] [address] [place] [phone] Ivette Richardson MD [address] [place] [address] 08/21/2024 11:00 AM CDT Hospital Encounter [facility] 3rd Fl [address] [place] [address] 08/28/2024 11:45 AM CDT Appointment [facility] Infusion Services [facility] [address] [place] [address] [facility] [place] [facility] 08/28/2024 1:00 PM CDT Appointment [facility] Imaging Services [facility] [address] [place] [address] Ivette Richardson MD [address] [place] [address] documented as of this encounter Visit Diagnoses Not on filedocumented in this encounter Care Teams Clerk Funeral Detail Relationship Specialty Start Date End Date Berta Barry MD [address] [facility] [address] [place] [address] [place] [phone] PCP - General Internal Medicine 05/29/24 documented as of this encounter
--- OUTSIDE RECORDS SUMMARY | 2024-08-20 10:39 | XMS_ITS | Encounter Summary ---
Author Organization [facility] Address [address] [place] [address] Care Team Providers Care Manager Style Name Role Phone Berta Barry MD Primary Care Provider [phone] Encounter Details Date Type Department Care Team (Late Contact Info) Description 08/19/2024 External Device Data [facility] ABSTRACTION Provider, Abstract [...] on file Legal Sex Female 2:50 PM BILINGUAL INSTRUCTOR Gender Identity Not on file Sexual Orientation Not on file documented as of this encounter Plan of Treatment Upcoming Encounters Date Type Department Care Team (Late Contact Info) Description 08/21/2024 10:10 AM CDT Appointment [facility] Laboratory Services [facility] [address] [place] [address] 08/21/2024 10:30 AM CDT Office Visit [facility] Oncology and Hematology [facility] [address] [place] [phone] Ivette Richardson MD [address] [place] [address] 08/21/2024 11:00 AM CDT Hospital Encounter [facility] 3rd Fl [address] [place] [address] 08/28/2024 11:45 AM CDT Appointment [facility] [address] [place] [address] [facility] [place] [facility] 08/28/2024 1:00 PM CDT Appointment [facility] [address] [place] [phone] Ivette Richardson MD [address] [place] [address] documented as of this encounter Visit Diagnoses Not on filedocumented in this encounter Care Teams Manager Style Relationship Specialty Start Date End Date Berta Barry MD [address] [facility] [address] [place] [address] [place] [phone] PCP - General Internal Medicine 05/29/24 documented as of this encounter
--- OUTSIDE RECORDS SUMMARY | 2024-08-20 10:39 | XMS_ITS | Encounter Summary ---
Author Organization [facility] Address [address] [place] [address] Care Team Providers Care Circuit Manager Name Role Phone Anette Gutierrez MD Primary Care Provider [phone] Eri Serna MD Unavailable [phone] Edilma Chun [facility] Unavailable Encounter Details Date Type Department Care Team (Late st Contact Info) Description 04/28/2017 Abstract [facility] [address] [place] [address] , Generic MD Homero Social History Tobacco Use Types Packs/Day Years Used Date Smoking Tobacco: Never Assessed Comments Unknown Sex and Gender Information Value Date Recorded Sex Assigned at Not on file Legal Sex Female 9:37 PM HOG CONFINEMENT SYSTEM 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 Care Teams Circuit Manager Relationship Specialty Start Date End Date Anette Gutierrez MD [address] [place] [id number] PCP - General INTERNAL MEDICINE 05/22/18 Eri Serna MD [address] [place] [address] ENDOCRINOLOGY 05/22/18 Edilma Chun, PLATING EQUIPMENT TENDER-BC [address] [place] [address] Yannick Invertebrate Paleontologist NURSE PRACTITIONER 10/08/20 documented as of this encounter
--- OUTSIDE RECORDS SUMMARY | 2024-08-20 10:40 | XMS_ITS | Clinical Summary ---
[facility] Organization [facility] Address [address] [place] [address] Care Team Providers Care Property Master Name Role Phone Berta Barry MD Primary Care Provider [phone] Allergies No known active allergies Medications ursodioL (GENOVEVA) 500 mg tabletIndicati ons:primary biliary cholangitis Take 500 mg by mouth 3 times daily. Active rosuvastatin (CRESTOR) 5 mg tablet Take 5 mg by mouth daily. Active clobetasoL (TEMOVATE) 0.05 % Ointment Apply to affected area see administration instructions. 024 Active cetirizine (ZyrTEC) 10 mg tablet Take 10 mg by mouth daily. Active multivitamin (DAILY-RADHA) tablet Take 1 Tablet by mouth daily. Active CALCIUM CARBONATE-LAWRENCE MIN D3 ORAL Take by mouth. Act mariely Synthroid 175 mcg tablet Take 175 mcg by mouth daily. Active dextromethorph an-guaiFENesin (ROBITUSSIN DM) 10-100 mg/5 mL solution Take 10 mL by mouth every 4 hours as needed for Cough. 025 Active prochlorperazi ne maleate (Compazine) 10 mg tabletIndicati ons:Mesothelio ma of right lung (CMS/HCC),Elena gnant pleural effusion (CMS/HCC) Take 1 Tablet (10 mg) by mouth every 6 hours as needed for Nausea/Emesis. 30 Tablet 1 025 Active lidocaine-pril ocaine (EMLA) 2.5-2.5 % CreamIndicatio ns:Mesotheliom a of right lung (CMS/HCC),Elena gnant pleural effusion (CMS/HCC) Apply to affected area see administration instructions. Apply 30-45 minutes prior to chemotherapy appointment, cover with plastic wrap. 30 Gram 1 025 Active ondansetron (ZOFRAN) 8 mg TabletIndicati ons:Mesothelio ma of right lung (CMS/HCC),Elena gnant pleural effusion (CMS/HCC) Take 1 Tablet (8 mg) by mouth every 8 hours as needed for Nausea/Emesis. 60 Tablet 1 025 Active famotidine (PEPCID) 20 mg tabletIndicati ons:Mesothelio ma of right lung (CMS/HCC),Elena gnant pleural effusion (CMS/HCC) Take 1 Tablet (20 mg) by mouth daily. 30 Tablet 2 025 Active folic acid (FOLVITE) 1 mg tabletIndicati ons:Mesothelio ma of right lung (CMS/HCC),Elena gnant pleural effusion (CMS/HCC) Take 1 Tablet (1 mg) by mouth daily. 90 Tablet 1 025 Active furosemide (LASIX) 20 mg tablet Take 20 mg by mouth daily. Active estradioL (ESTRACE) 0.01% (0.1 mg/g) vaginal cream Apply 1 Gram to affected area daily. Use on vulvar tissue to improve urinary symptoms. Apply daily for 2 weeks, then decrease to 1-3 times per week 42.5 Gram 025 Active benzonatate (TESSALON) 200 mg capsule TAKE 1 CAPSULE (200 MG) BY MOUTH 3 TIMES DAILY NEEDED FOR COUGH 60 Capsule 025 Active tiZANidine (ZANAFLEX) 2 mg Tablet TAKE 1 TABLET BY MOUTH EVERY 8 HOURS NEEDED FOR SPASM. 270 Tablet 1 025 Active gabapentin (NEURONTIN) 300 mg capsule TAKE 1 CAPSULE BY MOUTH THREE TIMES A DAY 90 Capsule 1 025 Active sennosides-doc usate sodium (SENNA-S) 8.6-50 mg tablet Take 1 Tablet by mouth 1 time daily as needed for Constipation. 30 Tablet 3 025 Active traMADol (ULTRAM) 50 mg tabletIndicati ons:Palliative care by specialist,Can cer related pain Take 1 Tablet (50 mg) by mouth every 6 hours as needed for Pain. 40 Tablet 2 Active gabapentin (NEURONTIN) 300 mg capsule TAKE 1 CAPSULE BY MOUTH THREE TIMES A DAY 90 Capsule 1 025 2024 Discontinued benzonatate (TESSALON) 200 mg capsule TAKE 1 CAPSULE (200 MG) BY MOUTH 3 TIMES DAILY NEEDED FOR COUGH 60 Capsule 025 2024 Discontinued sennosides-doc usate sodium (SENNA-S) 8.6-50 mg tablet Take 1 Tablet by mouth 1 time daily as needed for Constipation. 90 Tablet 1 025 2024 Discontinued(R eorder) tiZANidine (ZANAFLEX) 2 mg Tablet TAKE 1 TABLET BY MOUTH EVERY 8 HOURS NEEDED FOR SPASM. 90 Tablet 025 2024 Discontinued Active Problems Problem Noted Date Diagnosed [...] 10/21/2020 Acquired hypothyroidism 09/12/2019 Overview (03/13/2024): S/p HERNANDEZ for graves I the mid Resolved Problems Problem Noted Date Diagnosed Date Resolved Date Other shock 03/15/2024 06/28/2024 Encounters Date Type Department Care Team Description 08/20/2024 External Device Data STL ABSTRACTION Provider, Abstract 08/19/2024 External Device Data STL ABSTRACTION Provider, Abstract 08/18/2024 1:30 PM CDT Office Visit [facility] Palliative [facility] [address] [facility] [address] [place] [address] Shree Johnson MD Palliative care by specialist (Primary Dx); Cancer related pain; Acquired hypothyroidism; Primary biliary cirrhosis (CMS/HCC); Type 2 diabetes mellitus without complication, without long-term current use of insulin (CMS/HCC); Mesothelioma of right lung ([facility]/HCC); Pulmonary nodules/lesions, multiple; VALADEZ (dyspnea on exertion); Anemia due to chemotherapy 08/18/2024 External Device Data STL ABSTRACTION Provider, Abstract 08/17/2024 External Device Data STL ABSTRACTION Provider, Abstract 08/16/2024 External Device Data STL ABSTRACTION Provider, Abstract 08/15/2024 External Device Data STL ABSTRACTION Provider, Abstract 08/14/2024 External Device Data STL ABSTRACTION Provider, Abstract 08/13/2024 External Device Data STL ABSTRACTION Provider, Abstract 08/12/2024 External Device Data STL ABSTRACTION Provider, Abstract 08/11/2024 External Device Data STL ABSTRACTION Provider, Abstract 08/10/2024 External Device Data STL ABSTRACTION Provider, Abstract 08/09/2024 [facility] [place]iel [place] [address] [facility] [address] [place] [address] Ivette Richardson MD 08/09/2024 External Device Data STL ABSTRACTION Provider, Abstract 08/08/2024 External Device Data STL ABSTRACTION Provider, Abstract 08/07/2024 External Device Data STL ABSTRACTION Provider, Abstract 08/06/2024 External Device Data STL ABSTRACTION Provider, Abstract 08/05/2024 External Device Data STL ABSTRACTION Provider, Abstract 08/05/2024 External Device Data STL ABSTRACTION Provider, Abstract 08/05/2024 External Device Data STL ABSTRACTION Provider, Abstract 08/05/2024 [facility] Oncology and Hematology Yariel [place] [address] [facility] [address] [place] [address] Ivette Richardson MD 08/05/2024 External Device Data STL ABSTRACTION Provider, Abstract 08/04/2024 Chart Note [facility] Oncology Patient Navigation [address] [place] [address] Concetta Lopez RN 08/04/2024 External Device Data STL ABSTRACTION Provider, Abstract 08/03/2024 External Device Data STL ABSTRACTION Provider, Abstract 08/02/2024 External Device Data STL ABSTRACTION Provider, Abstract 08/01/2024 Refill [facility] Oncology and Hematology Yariel Guerin [address] [place] [address] Ivette Richardson MD 08/01/2024 External Device Data STL ABSTRACTION Provider, Abstract 07/31/2024 10:44 AM CDT - 07/31/2024 11:59 PM CDT Hospital Encounter [facility] 3rd Az [address] [facility] [address] [place] [address] Ivette Richardson MD Discharge Disposition: Home or Self Care 07/31/2024 10:00 AM CDT Office Visit [facility] Oncology [facility] [address] [facility] [address] [place] [address] Ivette Richardson MD Examination prior to chemotherapy (Primary Dx); Mesothelioma of right lung (CMS/HCC); Primary biliary cirrhosis (CMS/HCC); Malignant pleural effusion (CMS/HCC); Cancer associated pain; Neoplastic (malignant) related fatigue; Abnormal LFTs (liver function tests); Abnormal weight loss 07/31/2024 8:20 AM CDT - 07/31/2024 11:59 PM CDT Hospital Encounter [facility] 2nd Az [address] [place] [address] Ivette Richardson MD Discharge Disposition: Home or Self Care 07/31/2024 External Device Data STL ABSTRACTION Provider, Abstract 07/30/2024 External Device Data STL ABSTRACTION Provider, Abstract 07/30/2024 Refill [facility] Oncology [facility] [address] [facility] [address] [place] [address] Ivette Richardson MD 07/29/2024 External Device Data STL ABSTRACTION Provider, Abstract 07/28/2024 External Device Data STL ABSTRACTION Provider, Abstract 07/27/2024 External Device Data STL ABSTRACTION Provider, Abstract 07/26/2024 External Device Data STL ABSTRACTION Provider, Abstract 07/25/2024 External Device Data STL ABSTRACTION Provider, Abstract 07/24/2024 External Device Data STL ABSTRACTION Provider, Abstract 07/23/2024 External Device Data STL ABSTRACTION Provider, Abstract 07/22/2024 External Device Data STL ABSTRACTION Provider, Abstract 07/21/2024 External Device Data STL ABSTRACTION Provider, Abstract 07/20/2024 External Device Data STL ABSTRACTION Provider, Abstract 07/19/2024 External Device Data STL ABSTRACTION Provider, Abstract 07/18/2024 External Device Data STL ABSTRACTION Provider, Abstract 07/17/2024 11:05 AM CDT - 07/17/2024 11:59 PM CDT Hospital Encounter [facility] Infusion Center 3rd Fl [address] [facility] [address] [place] [address] Discharge Disposition: Home or Self Care 07/17/2024 10:20 AM CDT - 07/17/2024 11:59 PM CDT Hospital Encounter [facility] Infusion Center 2nd Fl [address] [place] [address] Ivette Richardson MD Discharge Disposition: Home or Self Care 07/17/2024 Orders Only [facility] Oncology and Hematology [facility] [address] [facility] [address] [place] [address] Ivette Richardson MD Anemia due to chemotherapy (Primary Dx) 07/17/2024 External Device Data STL ABSTRACTION Provider, Abstract 07/16/2024 External Device Data STL ABSTRACTION Provider, Abstract 07/15/2024 External Device Data STL ABSTRACTION Provider, Abstract 07/14/2024 Chart Note [facility] Oncology Patient Navigation [address] [place] [address] Opal Huang, RN Nurse Navigation (Follow up) 07/14/2024 External Device Data STL ABSTRACTION Provider, Abstract 07/14/2024 Refill [facility] Oncology and Hematology Yariel Guerin [address] [place] [phone] Ivette Richardson MD 07/14/2024 Orders Only [facility] [address] [facility] [address] [place] [address] Ian Hernandez MD Hyponatremia; Hypervolemia, unspecified hypervolemia type 07/13/2024 External Device Data STL ABSTRACTION Provider, Abstract 07/12/2024 External Device Data STL ABSTRACTION Provider, Abstract 07/11/2024 Results Follow-Up [facility] [address] [facility] [address] [place] [address] Ivette Richardson MD TSH REFLEXIVE 07/11/2024 Refill [facility] [address] [facility] [address] [place] [address] Myah Ambrosio, ANP 07/11/2024 External Device Data STL ABSTRACTION Provider, Abstract 07/10/2024 11:00 AM CDT - 07/10/2024 11:59 PM CDT Hospital Encounter [facility] Infusion Center 3rd Fl [address] [facility] [address] [place] [address] Ivette Richardson MD Discharge Disposition: Home or Self Care 07/10/2024 10:15 AM CDT Office Visit [facility] [address] [facility] [address] [place] [address] Ivette Richardson MD Mesothelioma of right lung (CMS/HCC) (Primary Dx); Anemia due to chemotherapy; Primary biliary cirrhosis (CMS/HCC); Examination prior to chemotherapy; Malignant pleural effusion (CMS/HCC); Cancer associated pain; Neoplastic (malignant) related fatigue; Elevated serum creatinine 07/10/2024 7:30 AM CDT - 07/10/2024 11:59 PM CDT Hospital Encounter [facility] Infusion Center 2nd Fl [address] [place] [address] Ivette Richardson MD Discharge Disposition: Home or Self Care 07/10/2024 External Device Data STL ABSTRACTION Provider, Abstract 07/10/2024 External Device Data STL ABSTRACTION Provider, Abstract 07/09/2024 External Device Data STL ABSTRACTION Provider, Abstract 07/08/2024 External Device Data STL ABSTRACTION Provider, Abstract 07/07/2024 Refill [facility] Oncology and Hematology Yariel Guerin [address] [place] [address] Ivette Richardson MD 07/07/2024 External Device Data STL ABSTRACTION Provider, Abstract 07/06/2024 External Device Data STL ABSTRACTION Provider, Abstract 07/05/2024 External Device Data STL ABSTRACTION Provider, Abstract 07/04/2024 Orders Only [facility] Oncology and Hematology [facility] [address] [place] [address] Ivette Richardson MD 07/04/2024 External Device Data STL ABSTRACTION Provider, Abstract 07/03/2024 External Device Data STL ABSTRACTION Provider, Abstract 07/02/2024 External Device Data STL ABSTRACTION Provider, Abstract 07/01/2024 External Device Data STL ABSTRACTION Provider, Abstract 06/30/2024 External Device Data STL ABSTRACTION Provider, Abstract 06/29/2024 External Device Data STL ABSTRACTION Provider, Abstract 06/28/2024 External Device Data STL ABSTRACTION Provider, Abstract 06/27/2024 2:40 PM CDT Office Visit [facility] - [address] [address] Ian Hernandez MD Hyponatremia (Primary Dx); SIADH (syndrome of inappropriate ADH production); Essential (primary) hypertension; Mesothelioma of right lung (CMS/HCC); Primary biliary cirrhosis (CMS/HCC); Recurrent right pleural effusion; Hypervolemia, unspecified hypervolemia type 06/27/2024 Telephone [facility] [address] [address] [place] [address] Adan Arrington MD Requesting Records 06/27/2024 External Device Data STL ABSTRACTION Provider, Abstract 06/26/2024 1:38 PM CDT - 06/26/2024 11:59 PM CDT Hospital Encounter [facility] 2nd Fl [address] [place] [address] Ivette Richardson MD Discharge Disposition: Home or Self Care 06/26/2024 1:30 PM CDT - 06/26/2024 11:59 PM CDT Hospital Encounter Ming Row[facility] Infusion Center [facility] [address] [place] [address] Ivette Richardson MD Discharge Disposition: Home or Self Care 06/26/2024 Results Follow-Up [facility] [address] [facility] [address] [place] [address] Brenna Mcintyre RN COMPREHENSIVE METABOLIC PANEL, CBC WITH DIFFERENTIAL 06/26/2024 Orders Only [facility] Oncology and Hematology [facility] [address] [facility] [address] [place] [address] Nakul Coulter MD 06/26/2024 External Device Data STL ABSTRACTION Provider, Abstract 06/25/2024 External Device Data STL ABSTRACTION Provider, Abstract 06/24/2024 External Device Data STL ABSTRACTION Provider, Abstract 06/23/2024 External Device Data STL ABSTRACTION Provider, Abstract 06/22/2024 External Device Data STL ABSTRACTION Provider, Abstract 06/21/2024 External Device Data STL ABSTRACTION Provider, Abstract 06/20/2024 External Device Data STL ABSTRACTION Provider, Abstract 06/19/2024 9:57 AM CDT - 06/19/2024 11:59 PM CDT Hospital Encounter Ming Halley [facility] Infusion [address] [facility] [address] [place] [address] Ivette Richardson MD Discharge Disposition: Home or Self Care 06/19/2024 9:30 AM CDT Office Visit [facility] Oncology and Hematology [facility] [address] [facility] [address] [place] [address] Ivette Richardson MD Smith, Lauren E, MONTEZ Mesothelioma of right lung (CMS/HCC) (Primary Dx); Primary biliary cirrhosis (CMS/HCC); Encounter for antineoplastic chemotherapy and immunotherapy; Malignant pleural effusion (CMS/HCC); Anemia due to chemotherapy; Hypokalemia; Chemotherapy induced neutropenia 06/19/2024 8:41 AM CDT - 06/19/2024 11:59 PM CDT Hospital Encounter [facility] Infusion Center 2nd Az [address] [place] [address] Ivette Richardson MD Discharge Disposition: Home or Self Care 06/19/2024 External Device Data STL ABSTRACTION Provider, Abstract 06/18/2024 Results Follow-Up [facility] Oncology and Hematology Yariel Guerin [address] [place] [address] CHEST ABDOMEN PELVIS W CONT 06/18/2024 External Device Data STL ABSTRACTION Provider, Abstract 06/17/2024 1:25 PM CDT - 06/17/2024 11:59 PM CDT Hospital Encounter [facility] CT Scan [address] [place] [address] Ivette Richardson MD Discharge Disposition: Home or Self Care 06/17/2024 External Device Data STL ABSTRACTION Provider, Abstract 06/16/2024 External Device Data STL ABSTRACTION Provider, Abstract 06/15/2024 External Device Data STL ABSTRACTION Provider, Abstract 06/14/2024 External Device Data STL ABSTRACTION Provider, Abstract 06/13/2024 9:00 AM CDT - 06/13/2024 11:59 PM CDT Hospital Encounter Ming [facility] Infusion Center 2nd Az [address] [place] [address] Ivette Richardson MD Discharge Disposition: Home or Self Care 06/13/2024 External Device Data STL ABSTRACTION Provider, Abstract 06/12/2024 1:45 PM CDT - 06/12/2024 11:59 PM CDT Hospital Encounter Ming Rowley [facility] Infusion Center 2nd Az [address] [place] [address] Ivette Richardson MD Discharge Disposition: Home or Self Care 06/12/2024 Orders Only [facility] Oncology and Hematology [facility] [address] [facility] [address] [place] [address] Ester Snyder MD 06/12/2024 Orders Only [facility] Oncology and Hematology Yariel Guerin [address] [facility] [address] [place] [address] Veda Barrios PA Anemia due to chemotherapy (Primary Dx); Mesothelioma of right lung (CMS/HCC) 06/12/2024 Telephone [facility] Oncology and Hematology Yariel Guerin [address] [facility] [address] [place] [address] Veda Barrios PA Critical Lab 06/12/2024 External Device Data STL ABSTRACTION Provider, Abstract 06/11/2024 External Device Data STL ABSTRACTION Provider, Abstract 06/10/2024 External Device Data STL ABSTRACTION Provider, Abstract 06/10/2024 External Device Data STL ABSTRACTION Provider, Abstract 06/09/2024 External Device Data STL ABSTRACTION Provider, Abstract 06/08/2024 External Device Data STL ABSTRACTION Provider, Abstract 06/07/2024 External Device Data STL ABSTRACTION Provider, Abstract 06/07/2024 Refill [facility] Oncology and Hematology Yariel Guerin [address] [facility] [address] [place] [address] Ivette Richardson MD 06/06/2024 External Device Data STL ABSTRACTION Provider, Abstract 06/05/2024 1:00 PM CDT - 06/05/2024 11:59 PM CDT Hospital Encounter Ming Gan [facility] Infusion Center 3rd Az [address] [place] [address] Ivette Richardson MD Discharge Disposition: Home or Self Care 06/05/2024 12:00 PM CDT - 06/05/2024 11:59 PM CDT Hospital Encounter [facility] 2nd Az [address] [place] [address] Ivette Richardson MD Discharge Disposition: Home or Self Care 06/05/2024 External Device Data STL ABSTRACTION Provider, Abstract 06/04/2024 External Device Data STL ABSTRACTION Provider, Abstract 06/03/2024 External Device Data STL ABSTRACTION Provider, Abstract 06/02/2024 Chart Note [facility] Patient Navigation [address] [place] [address] Concetta Lopez, RN Nurse Navigation (Follow Up) 06/02/2024 External Device Data STL ABSTRACTION Provider, Abstract 06/01/2024 External Device Data STL ABSTRACTION Provider, Abstract 05/31/2024 External Device Data STL ABSTRACTION Provider, Abstract 05/30/2024 External Device Data STL ABSTRACTION Provider, Abstract 05/29/2024 9:44 AM CDT - 05/29/2024 11:59 PM CDT Hospital Encounter [facility] Infusion Center 3rd Fl [address] [facility] [address] [place] [address] Ivette Richardson MD Discharge Disposition: Home or Self Care 05/29/2024 9:15 AM CDT Office Visit [facility] Oncology and Hematology [facility] [address] [place] [address] Ivette Richardson MD Mesothelioma of right lung (CMS/HCC) (Primary Dx); Primary biliary cirrhosis (CMS/HCC); Anemia due to chemotherapy; Examination prior to chemotherapy; Bilateral leg edema; Cancer associated pain; Subacute cough; Chemotherapy induced neutropenia 05/29/2024 8:38 AM CDT - 05/29/2024 11:59 PM CDT Hospital Encounter [facility] Infusion Center 2nd Fl [address] [place] [address] Ivette Richardson MD Discharge Disposition: Home or Self Care 05/29/2024 External Device Data STL ABSTRACTION Provider, Abstract 05/28/2024 External Device Data STL ABSTRACTION Provider, Abstract 05/27/2024 External Device Data STL ABSTRACTION Provider, Abstract 05/27/2024 Orders Only [facility] Oncology and Hematology Yariel Guerin [address] [place] [address] Ivette Richardson MD 05/27/2024 External Device Data STL ABSTRACTION Provider, Abstract 05/26/2024 11:00 AM CDT Video Visit [facility] - [place] [address] [facility] [address] [place] [address] Danya Brown PA Hyponatremia (Primary Dx); Type 2 diabetes mellitus without complication, without long-term current use of insulin (CMS/HCC); Mesothelioma of right lung (CMS/HCC); Acquired hypothyroidism; Essential (primary) hypertension; SIADH (syndrome of inappropriate ADH production) 05/26/2024 External Device Data STL ABSTRACTION Provider, Abstract 05/25/2024 External Device Data STL ABSTRACTION Provider, Abstract 05/24/2024 External Device Data STL ABSTRACTION Provider, Abstract 05/23/2024 External Device Data STL ABSTRACTION Provider, Abstract 05/22/2024 External Device Data STL ABSTRACTION Provider, Abstract 05/21/2024 External Device Data STL ABSTRACTION Provider, Abstract from Last 3 Months Family History Medical [...] on file 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 Gender Identity Not on file Sexual Orientation Not on file Last Filed Vital Signs Vital Sign Reading Time Taken Comments Blood Pressure 150/80 08/18/2024 1:52 PM CDT Pulse 83 08/18/2024 1:52 PM CDT Temperature 36.6 C (97.9 F) 08/18/2024 1:52 PM CDT Respiratory Rate 16 07/17/2024 11:10 AM CDT Oxygen Saturation 97% 08/18/2024 1:52 PM CDT Inhaled Oxygen Concentration - - Weight 71.9 kg (158 lb 9.6 oz) 08/18/2024 1:52 P M CDT Height 162.6 cm (5' 4) 08/18/2024 1:52 PM CDT Body Mass Index 27.22 08/18/2024 1:52 PM CDT Plan of Treatment Upcoming Encounters Date Type Department Care Team (Late st Contact Info) Description 08/21/2024 10:10 AM CDT Appointment [facility] Laboratory Services [facility] [address] [facility] [place] [address] 08/21/2024 10:30 AM CDT Office Visit [facility] Oncology and Hematology [facility] [address] [facility] [address] [place] [address] Ivette Richardson MD [address] [place], [place] [phone] 08/21/2024 11:00 AM CDT Hospital Encounter [facility] Infusion Center 3rd Fl [address] [place] [address] 08/28/2024 11:45 AM CDT Appointment [facility] Infusion Services [facility] [address] [place] [address] [facility] 08/28/2024 1:00 PM CDT Appointment [facility] Imaging Services [facility] [address] [place] [address] Ivette Richardson MD [address] [place] [address] Health Maintenance Due Date Last Done Comments DIABETES ANNUAL RETINAL EXAM 1978 DIABETES MICROALBUMIN ANNUAL SCREEN 1978 LDL CHOLESTEROL ANNUAL 1978 ZOSTER VACCINE (1 of 2) 1979 HPV/Cotest (21-29) 1981 CERVICAL CANCER SCREENING 1990 HPV/Cotest (30-65) 1990 PAP SMEAR 1990 FIT-DNA Q 3 years 2005 FIT/FOBT Q 1 year 2005 Flex Sig/CT Colonography Q 5 years 2005 RSV VACCINE (60+ or ) (1 - Risk 60-74 years 1-dose series) 2020 COLORECTAL SCREENING 07/29/2023 07/28/2013 Colorectal Cancer Screening 07/29/2023 DIABETES ANNUAL FOOT EXAM 12/14/2023 12/13/2022 INFLUENZA VACCINE (#1) 2024 , 12/13/2022, 02/17/2019, Additional history exists DIABETES HBA1C Q 6 MONTHS 11/15/20242024, 03/14/2024, 03/13/2023, Additional history exists BREAST CANCER SCREENING 05/15/2025 05/16/19, 05/15/2024, 01/31/2023, Additional history exists DTAP/TDAP/TD VACCINES (2 - T d or Tdap) 01/23/2028 01/22/2018 Medical Devices Implanted Type Area Employee Counselor Device Identifier Shelf Expiration Date Model / Serial / Lot Port-04/14/2024 Implanted:Qty: 1 on 04/14/2024 by Jez Cedeno MD Port Right: Chest Wall [id number] 04/11/2025 [id number] / / [id number] Procedures Procedure Name Priority Date/Time Associated Diagnosis Comments MAGNESIUM LEVEL Stat 07/31/2024 9:07 AM CDT Mesothelioma of right lung (CMS/HCC) Primary biliary cirrhosis (CMS/HCC) COMPREHENSIVE METABOLIC PANEL Stat 07/31/2024 9:07 AM CDT Mesothelioma of right lung (CMS/HCC) Primary biliary cirrhosis (CMS/HCC) CBC WITH DIFFERENTIAL Stat 07/31/2024 9:07 AM CDT Mesothelioma of right lung (CMS/HCC) Primary biliary cirrhosis (CMS/HCC) TYPE AND SCREEN Stat 07/17/2024 10:41 AM CDT Anemia due to chemotherapy DIFFERENTIAL, MANUAL Stat 07/17/2024 10:41 AM CDT Anemia due to chemotherapy CBC WITH DIFFERENTIAL Stat 07/17/2024 10:41 AM CDT Anemia due to chemotherapy TSH REFLEXIVE Routine 07/10/2024 10:23 AM CDT Mesothelioma of right lung (CMS/HCC) Primary biliary cirrhosis (CMS/HCC) MAGNESIUM LEVEL Stat 07/10/2024 10:22 AM CDT Mesothelioma of right lung (CMS/HCC) Primary biliary cirrhosis (CMS/HCC) COMPREHENSIVE METABOLIC PANEL Stat 07/10/2024 10:22 AM CDT Mesothelioma of right lung (CMS/HCC) Primary biliary cirrhosis (CMS/HCC) CBC WITH DIFFERENTIAL Stat 07/10/2024 10:22 AM CDT Mesothelioma of right lung (CMS/HCC) Primary biliary cirrhosis (CMS/HCC) CBC WITH DIFFERENTIAL Routine 07/01/2024 3:36 PM CDT Low hemoglobin DIFFERENTIAL, MANUAL Stat 06/26/2024 1:52 PM CDT Anemia due to chemotherapy Hypokalemia COMPREHENSIVE METABOLIC PANEL Stat 06/26/2024 1:52 PM CDT Anemia due to chemotherapy Hypokalemia CBC WITH DIFFERENTIAL Stat 06/26/2024 1:52 PM CDT Anemia due to chemotherapy Hypokalemia MAGNESIUM LEVEL Stat 06/19/2024 8:59 AM CDT Mesothelioma of right lung (CMS/HCC) Primary biliary cirrhosis (CMS/HCC) COMPREHENSIVE METABOLIC PANEL Stat 06/19/2024 8:59 AM CDT Mesothelioma of right lung (CMS/HCC) Primary biliary cirrhosis (CMS/HCC) CBC WITH DIFFERENTIAL Stat 06/19/2024 8:59 AM CDT Mesothelioma of right lung (CMS/HCC) Primary biliary cirrhosis (CMS/HCC) CT CHEST ABDOMEN PELVIS W CONT Routine 06/17/2024 1:48 PM CDT Mesothelioma of right lung (CMS/HCC) TRANSFUSE PACKED RED BLOOD CELLS Routine 06/13/2024 12:12 PM CDT Mesothelioma of right lung (CMS/HCC) Anemia due to chemotherapy TRANSFUSE PACKED RED BLOOD CELLS Routine 06/13/2024 9:53 AM CDT Mesothelioma of right lung (CMS/HCC) Anemia due to chemotherapy PREPARE RED BLOOD CELLS Routine 06/12/2024 4:46 PM CDT PREPARE RED BLOOD CELLS Routine 06/12/2024 4:46 PM CDT Mesothelioma of right lung (CMS/HCC) Anemia due to chemotherapy TYPE AND SCREEN Routine 06/12/2024 2:32 PM CDT Anemia due to chemotherapy DIFFERENTIAL, MANUAL Stat 06/12/2024 2:25 PM CDT Anemia due to chemotherapy CBC WITH DIFFERENTIAL Stat 06/12/2024 2:25 PM CDT Anemia due to chemotherapy DIFFERENTIAL, MANUAL Stat 06/05/2024 12:53 PM CDT Anemia due to chemotherapy CBC WITH DIFFERENTIAL Stat 06/05/2024 12:53 PM CDT Anemia due to chemotherapy FERRITIN Stat 05/29/2024 12:55 PM CDT Anemia due to chemotherapy RETICULOCYTES Routine 05/29/2024 12:55 PM CDT Anemia due to chemotherapy IRON, TIBC, AND PERCENT SATURATION Routine 05/29/2024 12:55 PM CDT Anemia due to chemotherapy VITAMIN B12 AND FOLATE Routine 05/29/2024 12:55 PM CDT Anemia due to chemotherapy URINALYSIS W/REFLEX MICROSCOPIC Routine 05/29/2024 9:06 AM CDT Hyponatremia ELECTROLYTES, RANDOM URINE Routine 05/29/2024 9:06 AM CDT Hyponatremia OSMOLALITY, URINE Routine 05/29/2024 9:0 6 AM CDT Hyponatremia MAGNESIUM LEVEL Stat 05/29/2024 8:51 AM CDT Mesothelioma of right lung (CMS/HCC) Primary biliary cirrhosis (CMS/HCC) COMPREHENSIVE METABOLIC PANEL Stat 05/29/2024 8:51 AM CDT Mesothelioma of right lung (CMS/HCC) Primary biliary cirrhosis (CMS/HCC) CBC WITH DIFFERENTIAL Stat 05/29/2024 8:51 AM CDT Mesothelioma of right lung (CMS/HCC) Primary biliary cirrhosis (CMS/HCC) TSH REFLEXIVE Routine 05/29/2024 8:50 AM CDT Mesothelioma of right lung (CMS/HCC) Primary biliary cirrhosis (CMS/HCC) HEMOGLOBIN A1C Routine 03/14/2024 7:56 AM INTERNATIONAL STUDENT COUNSELOR from Last 3 Months or Most Recently Relevant to Health Maintenance Results * (ABNORMAL) CBC WITH DIFFERENTIAL (07/31/2024 9:07 AM CDT) Only the most recent of9 resultswithin the time period is included. WBC 4.7 4.0 - 9.8 K/uL 07/31/2024 9:22 AM CDT [facility] LABORAT[facility] SERVICES [facility] RBC 3.60(L) 3.90 - 4.90 M/uL 07/31/2024 9:22 AM T [facility] LABORATORY SERVICES - [facility] HEMOGLOBIN 11.5(L) 11.8 - 14.8 g/dL 07/31/2024 9:22 AM T [facility]OR[facility] SERVICES [facility] HEMATOCRIT 35.7 35.5 - 44.0 % 07/31/2024 9:22 AM T [facility]ORATORY SERVICES [facility] MCV 99.2(H) 82.0 - 99.0 fL 07/31/2024 9:22 AM CDT [facility] - [facility] MCH 31.9 27.2 - 32.6 pg 07/31/2024 9:22 AM CDT [facility] LABORATORY SERVICES - [facility] MCHC 32.2 31.5 - 35.5 g/dL 07/31/2024 9:22 AM CDT [facility] LABORATORY SERVICES - [facility] RDW 17.5(H) 11.5 - 14.5 % 07/31/2024 9:22 AM CDT [facility]AT[facility] SERVICES - [facility] RDW-STDEV 64.1(H) 37.1 - 48.7 fL 07/31/2024 9:22 AM CDT [facility]ORAT[facility] SERVICES - [facility] PLATELETS 254 140 - 350 K/uL 07/31/2024 9:22 AM CDT [facility] LABORATORY SERVICES - . [facility] MPV 8.9(L) 9.3 - 12.4 fL 07/31/2024 9:22 AM CDT [facility]ORATORY SERVICES - [facility] NEUTROPHILS 89 % 07/31/2024 9:22 AM CDT [facility]AT[facility] - [facility] LYMPHOCYTES 8 % 07/31/2024 9:22 AM CDT [facility] - . [facility] MONOCYTES 2 % 07/31/2024 9:22 AM CDT [facility] - . [facility] EOSINOPHILS 0 % 07/31/2024 9:22 AM CDT [facility] - . [facility] BASOPHILS 0 % 07/31/2024 9:22 AM CDT [facility] SERVICES - . [facility] IMMATURE GRANULOCYTES 0 % 07/31/2024 9:22 AM CDT [facility]AT[facility] SERVICES - . [facility] NEUTROPHIL ABSOLUTE 4.18 1.90 - 7.00 K/uL 07/31/2024 9:22 AM CDT [facility]ORATORY SERVICES - . [facility] LYMPHOCYTE ABSOLUTE 0.37(L) 0.70 - 4.50 K/uL 07/31/2024 9:22 AM CDT [facility] LAB[facility]AT[facility] - . [facility] MONOCYTE ABSOLUTE 0.09(L) 0.10 - 1.30 K/uL 07/31/2024 9:22 AM CDT [facility] LABORATORY SERVICES - . [facility] EOSINOPHIL ABSOLUTE 0.00 0.00 - 0.70 K/uL 07/31/2024 9:22 AM CDT [facility] LABORATORY SERVICES - . [facility] BASOPHILS ABSOLUTE 0.02 0.00 - 0.20 K/uL 07/31/2024 9:22 AM CDT [facility] LABORATORY [facility] - [facility] IMMATURE GRANULOCYTES ABSOLUTE 0.02 0.00 - 0.03 K/uL 07/31/2024 9:22 AM CDT [facility] LABOR[facility] - [facility] Blood Collection / Unknown 07/31/2024 9:07 AM CDT 07/31/2024 9:18 AM CDT Ivette Richardson MD HEMATOLOGY ORDERABLES Final Result Performing Organization Address City/[facility]/ZIP Co de Phone Number [facility] CLIA# [id number] [address] [place] [address] * MAGNESIUM LEVEL (07/31/2024 9:07 AM CDT) Only the most recent of4 resultswithin the time period is included. MAGNESIUM 2.1 1.6 - 2.4 mg/dL 07/31/2024 9:43 AM T [facility] Blood Collection / Unknown 07/31/2024 9:07 AM CDT 07/31/2024 9:18 AM CDT Ivette Richardson MD CHEMISTRY ORDERABLES Final R esult Performing Organization Address [facility] Co de Phone Number [facility]# [id number] [address] [place] [address] * (ABNORMAL) COMPREHENSIVE METABOLIC PANEL (07/31/2024 9:07 AM CDT) Only the most recent of5 resultswithin the time period is included. SODIUM 137 136 - 145 mmol/L 07/31/2024 9:43 AM CDT [facility] LABORATORY [facility] POTASSIUM 4.3 3.5 - 5.0 mmol/L 07/31/2024 9:43 AM CDT [facility] LABORATORY [facility] CHLORIDE 98 98 - 107 mmol/L 07/31/2024 9:43 AM CDT [facility] LABORATORY [facility] - [facility] CO2 25 22 - 29 mmol/L 07/31/2024 9:43 AM [facility] LABORATORY [facility] - [facility] CALCIUM 10.0 8.6 - 10.2 mg/dL 07/31/2024 9:43 AM [facility] LABORATORY [facility] - . [facility] BUN 16 8 - 23 mg/dL 07/31/2024 9:43 AM [facility] - . [facility] CREATININE 1.30(H) 0.51 - 0.95 mg/dL 07/31/2024 9:43 AM [facility] - . [facility] GLUCOSE 201(H) 74 - 99 mg/dL 07/31/2024 9:43 AM [facility] - . [facility] TOTAL PROTEIN 7.7 6.7 - 8.6 g/dL 07/31/2024 9:43 AM [facility] - . [facility] ALBUMIN 4.1 3.5 - 5.2 g/dL 07/31/2024 9:43 AM [facility] LABORATORY [facility] - . [facility] BILIRUBIN TOTAL 0.5 0.0 - 1.1 mg/dL 07/31/2024 9:43 AM [facility] LABORATORY [facility] - . [facility] ALKALINE PHOSPHATASE 251(H) 35 - 104 U/L 07/31/2024 9:43 AM [facility] AST 96(H) <33 U/L 07/31/2024 9:43 AM [facility]. [facility] ALT 54(H) <34 U/L 07/31/2024 9:43 AM [facility]. [facility] GFR 46(L) >=60 mL/min/1.7 3 sq meter 07/31/2024 9:43 AM [facility] LABORATORY [facility] - [facility] Comment:eGFR calculated with 2020 CKD-EPI equation. Vegetarian diet, extremely high or low muscle mass, and may affect results. Cystatin C with Glomerular Filtration Rate is a suitable alternative for these patients. ANION GAP 14 8 - 16 mmol/L 07/31/2024 9:43 AM [facility]. [facility] Blood Collection / Unknown 07/31/2024 9:07 AM CDT 07/31/2024 9:18 AM CDT Narrative [facility] LABORATORY SERVICES - [facility] - 07/31/2024 9:43 AM CDT Samples containing indocyanine green cause interferences on Total and/or Direct Bilirubin and must not be measured. Ivette Richardson MD CHEMISTRY ORDERABLES Final R esult Performing Organization Address City/[facility]/ZIP Co de Phone Number [facility]# [id number] [address] [place] [address] * MANUAL DIFFERENTIAL (07/17/2024 10:41 AM CDT) Only the most recent of4 resultswithin the time period is included. Pathologist [facility] PLATELET EST. Consistent w Count 07/17/2024 11:32 AM CDT [facility] LABORATORY [facility] ANISOCYTOSIS 2+ /hpf 07/17/2024 11:32 AM CDT [facility] MACROCYTES 1+ /hpf 07/17/2024 11:32 AM CDT [facility] LABORATORY [facility] Blood BLOOD SPECIMEN / Unknown Collection / Unknown 07/17/2024 10:41 AM CDT 07/17/2024 11:00 AM CDT Ivette Richardson MD HEMATOLOGY ORDERABLES COM Fi nal Result Performing Organization Address City/[facility]/ZIP Co de Phone Number [facility]# [id number] [address] [place] [address] * TYPE AND SCREEN (07/17/2024 10:41 AM CDT) Only the most recent of2 resultswithin the time period is included. Pathologist [facility] ABO GROUP A 07/17/2024 12:14 PM CDT [facility] LABORATORY SERVICES -- [facility] RH (D) TYPE Positive 07/17/2024 12:14 PM CDT [facility] LABORATORY SERVICES -- [facility] ANTIBODY SCREEN Negative 07/17/2024 12:14 PM CDT [facility]ATORY SERVICES -- [facility] Blood BLOOD SPECIMEN / Unknown Collection / Unknown 07/17/2024 10:41 AM CDT 07/17/2024 11:09 AM CDT Ivette Richardson MD BLOOD BANK ORDERABLES Edited Result - Final [facility] LABORATORY SERVICES -- [facility] CLIA# [id number] [address] [facility] [place] [address] * (ABNORMAL) TSH REFLEXIVE (07/10/2024 10:23 AM CDT) Only the most recent of2 resultswithin the time period is included. TSH 5.99(H) 0.40 - 4.50 mIU/L [facility] T4 FREE 1.6 0.8 - 1.8 ng/dL [facility] Comment: Test Performed at: [place] [address] [place] [address] [facility] Blood 07/10/2024 10:2 3 AM CDT 07/10/2024 10:39 AM CDT Ivette Richardson MD CHEMISTRY ORDERABLES Final R esult [facility] [phone] [place] [address] [place] [address] * CT CHEST ABDOMEN PELVIS W CONT (06/17/2024 1:48 PM CDT) Anatomical Region Laterality Modality Chest Computed Tomogra phy 06/17/2024 1:41 PM CDT Impressions 06/17/2024 4:21 PM CDT IMPRESSION: Chest CT: Overall mild decrease in diffuse right pleural thickening with nodular areas most pronounced in the anterior inferior right chest. Diffuse pleural thickening remains within the right hemithorax. Improving aeration of the left upper lobe with minimal groundglass opacities remaining. Small right pleural effusion decreased in size. Abdomen/Pelvis CT: No CT evidence of metastatic disease within the abdomen or pelvis. The gallbladder is partially collapsed. Findings suggesting a noncalcified gallstone or small gallbladder polyp. Trace free fluid within the dependent pelvis. DICTATION LOCATION: Location [address] [place] [address] 06/17/2024 4:[address] CHEST, ABDOMEN AND PELVIS WITH IV CONTRAST INCLUDING MULTIPLANAR RECONSTRUCTIONS DATE: 06/17/2024 1:48 PM HISTORY: mesothelioma. Mesothelioma of right lung (CMS/HCC) COMPARISON: Chest CT 04/03/2024, outside PET/CT of 01/31/2024 PROCEDURE: Spiral volumetric acquisition of the chest, abdomen and pelvis was performed with intravenous contrast. Gastrointestinal contrast was not administered. Sagittal and coronal reconstructions were performed. The examination was performed with the adjustment of mA according to the patient size and/or the use of Iterative Reconstruction Technique. CONTRAST: IOPAMIDOL 61 % INTRAVENOUS SOLUTION (MULTI-DOSE BULK PACK) Given:100 mL FINDINGS: CHEST CT: HEART/VESSELS: Normal in size. No pericardial effusion. The thoracic aorta is normal in caliber. Moderate coronary artery calcification is seen. A right-sided Port-A-Cath is noted with the tip in the superior vena cava. MEDIASTINUM AND KIYA: No lymphadenopathy. CHEST WALL AND LOWER NECK: The thyroid gland is markedly atrophic and/or absent. LUNGS/AIRWAYS/PLEURA: Diffuse moderate right pleural thickening with more nodular areas most pronounced within the anterior inferior right chest. Overall the pleural thickening and nodular areas are smaller when compared to previous exam. A energy conservation representative area measures 6.9 cm on today's exam (series 2 image 273). This previously measured 8.1 cm when measured in a similar fashion. Interval removal of the right basilar chest tube has occurred. The scattered foci of air within the pleural space are no longer seen consistent with interval chest tube removal. Significant improvement in groundglass opacities within the left upper lobe have occurred. No left pulmonary nodules or pleural thickening is seen. Small right pleural effusion. No left pleural effusion. No pneumothorax. Patent central airway. BONES: No suspicious focal osseous lesions. ABDOMEN/PELVIS CT: LIVER: Within normal limits GALLBLADDER: Partially collapsed with diffuse wall thickening likely related to partially collapsed state. A noncalcified gallstone versus small gallbladder polyp. BILE DUCTS: Within normal limits. PANCREAS: Within normal limits. SPLEEN: Within normal limits. ADRENALS: Within normal limits. KIDNEYS/URETERS: Within normal limits. VASCULATURE: Normal caliber abdominal aorta. Mild atherosclerotic vascular calcification. BOWEL: No bowel obstruction or wall thickening. The appendix is within normal limits. PERITONEUM/RETROPERITONEUM: No pathologic lymphadenopathy. Trace free fluid within the dependent pelvis. REPRODUCTIVE ORGANS: Findings suggesting a 3.3 cm left uterine leiomyoma. A coarse calcification is noted within the posterior uterus suggesting a calcified leiomyoma. BLADDER: Partially decompressed. Diffuse urinary bladder wall thickening. ABDOMINAL WALL: Small periumbilical hernia containing only fat. BONES: No suspicious focal osseous lesions. Mild degenerative change of the lumbar spine. Procedure Note Rosanna Rothman MD - 06/17/2024 CT CHEST, ABDOMEN AND PELVIS WITH IV CONTRAST INCLUDING MULTIPLANAR RECONSTRUCTIONS DATE: 06/17/2024 1:48 PM HISTORY: mesothelioma. Mesothelioma of right lung (CMS/HCC) COMPARISON: Chest CT 04/03/2024, outside PET/CT of 01/31/2024 PROCEDURE: Spiral volumetric acquisition of the chest, abdomen and pelvis was performed with intravenous contrast. Gastrointestinal contrast was not administered. Sagittal and coronal reconstructions were performed. The examination was performed with the adjustment of mA according to the patient size and/or the use of Iterative Reconstruction Technique. CONTRAST: IOPAMIDOL 61 % INTRAVENOUS SOLUTION (MULTI-DOSE BULK PACK) Given:100 mL FINDINGS: CHEST CT: HEART/VESSELS: Normal in size. No pericardial effusion. The thoracic aorta is normal in caliber. Moderate coronary artery calcification is seen. A right-sided Port-A-Cath is noted with the tip in the superior vena cava. MEDIASTINUM AND KIYA: No lymphadenopathy. CHEST WALL AND LOWER NECK: The thyroid gland is markedly atrophic and/or absent. LUNGS/AIRWAYS/PLEURA: Diffuse moderate right pleural thickening with more nodular areas most pronounced within the anterior inferior right chest. Overall the pleural thickening and nodular areas are smaller when compared to previous exam. A energy conservation representative area measures 6.9 cm on today's exam (series 2 image 273). This previously measured 8.1 cm when measured in a similar fashion. Interval removal of the right basilar chest tube has occurred. The scattered foci of air within the pleural space are no longer seen consistent with interval chest tube removal. Significant improvement in groundglass opacities within the left upper lobe have occurred. No left pulmonary nodules or pleural thickening is seen. Small right pleural effusion. No left pleural effusion. No pneumothorax. Patent central airway. BONES: No suspicious focal osseous lesions. ABDOMEN/PELVIS CT: LIVER: Within normal limits GALLBLADDER: Partially collapsed with diffuse wall thickening likely related to partially collapsed state. A noncalcified gallstone versus small gallbladder polyp. BILE DUCTS: Within normal limits. PANCREAS: Within normal limits. SPLEEN: Within normal limits. ADRENALS: Within normal limits. KIDNEYS/URETERS: Within normal limits. VASCULATURE: Normal caliber abdominal aorta. Mild atherosclerotic vascular calcification. BOWEL: No bowel obstruction or wall thickening. The appendix is within normal limits. PERITONEUM/RETROPERITONEUM: No pathologic lymphadenopathy. Trace free fluid within the dependent pelvis. REPRODUCTIVE ORGANS: Findings suggesting a 3.3 cm left uterine leiomyoma. A coarse calcification is noted within the posterior uterus suggesting a calcified leiomyoma. BLADDER: Partially decompressed. Diffuse urinary bladder wall thickening. ABDOMINAL WALL: Small periumbilical hernia containing only fat. BONES: No suspicious focal osseous lesions. Mild degenerative change of the lumbar spine. IMPRESSION: Chest CT: Overall mild decrease in diffuse right pleural thickening with nodular areas most pronounced in the anterior inferior right chest. Diffuse pleural thickening remains within the right hemithorax. Improving aeration of the left upper lobe with minimal groundglass opacities remaining. Small right pleural effusion decreased in size. Abdomen/Pelvis CT: No CT evidence of metastatic disease within the abdomen or pelvis. The gallbladder is partially collapsed. Findings suggesting a noncalcified gallstone or small gallbladder polyp. Trace free fluid within the dependent pelvis. DICTATION LOCATION: Location 1 - [facility] Ivette Richardson MD CT ORDERABLES Final Result * TRANSFUSE RED BLOOD CELLS (06/13/2024 2:07 PM CDT) Only the most recent of2 resultswithin the time period is included. [facility] BLOOD TRANSFUSION ORDERABLES Fin al Result * PREPARE RED BLOOD CELLS (06/12/2024 4:46 PM CDT) Only the most recent of2 resultswithin the time period is included. COMPONENT TYPE [id number] [facility] SERVICES -- [facility] COMPONENT IDENTIFICATION [id number] [facility] LABORATORY SERVICES -- [facility] UNIT ABO A [facility] UN[facility] RH POS [facility] -- [facility] CROSSMATCH Compatible [facility] SERVICES -- [facility] COMPONENT STATUS Transfused [facility] -- [facility] COMPONENT EXPIRATION DATE/TIME [id number] [facility]ATORY SERVICES -- [facility] COMPONENT CODING SYSTEM 6200 [facility] SERVICES -- [facility] VOLUME, BLOOD PRODUCT 350 [facility] 06/12/2024 4:46 PM CDT [facility] LAB TRANSFUSION ORDERABLES Edite d Result - Final [facility] SERVICES -- [facility] CLIA# [id number] [address] [facility] [address] [address] * (ABNORMAL) VITAMIN B12 AND FOLATE (05/29/2024 12:55 PM CDT) VITAMIN B12 >2000(H) 200 - 1100 pg/mL [facility] FOLATE, SERUM >24.0 ng/mL [facility] Comment: Reference Range Low: <3.4 Borderline: 3.4-5.4 Normal: >5.4 Test Performed at: [facility] [address] [place] [address] Jesika Spicer MD Blood 05/29/2024 12:5 5 PM CDT 05/29/2024 3:00 PM CDT Ivette Richardson MD CHEMISTRY ORDERABLES Final R esult [facility] [phone] [facility] [address] [facility] [place] [address] * IRON, TIBC, AND PERCENT SATURATION (05/29/2024 12:55 PM CDT) IRON 46 45 - 160 mcg/dL [facility] TIBC 251 250 - 450 mcg/dL (calc) [facility] IRON % SATURATION 18 16 - 45 % (calc) [facility] Comment: Test Performed at: [facility] [address] [facility] [place] [address] Jesika Spicer MD Blood 05/29/2024 12:5 5 PM CDT 05/29/2024 3:00 PM CDT Ivette Richardson MD CHEMISTRY ORDERABLES Final R esult [facility] [facility] [phone] [facility] [id number] [address] [place] [address] * (ABNORMAL) RETICULOCYTES (05/29/2024 12:55 PM CDT) RETICULOCYTES 4.4 % [facility] [employer] ze[employer] Elliott RETICULOCYTE, ABSOLUTE 114,840(H ) 20,000 - 80,000 cells/uL [facility] [place] Comment: Test Performed at: [facility] [place] [address] [place] [address] Jesika Spicer Blood 05/29/2024 12:5 5 PM CDT 05/29/2024 3:00 PM CDT Ivette Richardson MD HEMATOLOGY ORDERABLES Final Result Performing Organization Address City/[facility]/ZIP [facility] Phone Number [facility] [phone] [place] [address] [place] [address] * (ABNORMAL) FERRITIN (05/29/2024 12:55 PM CDT) FERRITIN 492.0(H) 13.0 - 150.0 ng/mL 05/29/2024 2:12 PM CDT [facility] Blood Collection / Unknown 05/29/2024 12:55 PM CDT 05/29/2024 1:23 PM CDT Ivette Richardson MD CHEMISTRY ORDERABLES Final R esult [facility]# [id number] [place] [place] [address] * ELECTROLYTES, RANDOM URINE (05/29/2024 9:06 AM CDT) CHLORIDE, URINE 44 32 - 290 mmol/L [facility] POTASSIUM, URINE 22 12 - 129 mmol/L [facility] SODIUM, URINE 47 28 - 272 mmol/L [facility] Comment: Test Performed at: [place] [id number] [address] Jesika Spicer MD Urine URINE SPECIMEN OBTAINED BY CLEAN CATCH PROCEDURE / Unknown 05/29/2024 9:06 AM CDT 05/29/2024 9:21 AM CDT us Danya SANTAMARIA URINE ORDERABLES Final Result Performing Organization Address City/[facility]/ZIP Co de Phone Number [facility] [phone] [facility] [address] [place] [address] * OSMOLALITY, URINE (05/29/2024 9:06 AM CDT) OSMOLALITY, URINE 237 50 - 1200 mOsm/kg [facility] Comment: Test Performed at: [place] [address] Jesika Spicer MD Urine URINE SPECIMEN OBTAINED BY CLEAN CATCH PROCEDURE / Unknown 05/29/2024 9:06 AM CDT 05/29/2024 9:21 AM CDT us Danya SANTAMARIA URINE ORDERABLES Final Result [facility] [phone] [facility] [address] [place] [address] * URINALYSIS WITH REFLEX MICROSCOPIC (05/29/2024 9:06 AM CDT) COLOR UA YELLOW YELLOW [facility] CLARITY UA CLEAR CLEAR [facility] SPECIFIC GRAVITY UA 1.008 1.001 - 1.035 [facility] PH UA 6.5 5.0 - 8.0 [facility] GLUCOSE UA NEGATIVE NEGATIVE [facility] BILIRUBIN UA NEGATIVE NEGATIVE [facility] KETONES UA NEGATIVE NEGATIVE [facility] BLOOD UA NEGATIVE NEGATIVE [facility] PROTEIN UA NEGATIVE NEGATIVE [facility] NITRITE UA NEGATIVE NEGATIVE [facility] LEUKOCYTE ESTERASE UA NEGATIVE NEGATIVE [facility] Comment: Test Performed at: [place] [address] [place] [address] DaliSapna Spicer Urine URINE SPECIMEN OBTAINED BY CLEAN CATCH PROCEDURE / Unknown 05/29/2024 9:06 AM CDT 05/29/2024 9:21 AM CDT Danya SANTAMARIA URINE ORDERABLES Final Result Performing Organization Address City/[facility]/ZIP Code Phone Number [facility] [phone] [place] [address] [place] [address] * (ABNORMAL) HEMOGLOBIN A1C (03/14/2024 7:56 AM INTERNATIONAL STUDENT COUNSELOR) Pathologist [facility] HEMOGLOBIN A1C 6.6(H) <5.7 % 03/14/2024 2:31 PM INTERNATIONAL STUDENT COUNSELOR [facility] EST. AVG GLUCOSE, A1C 143 mg/dL 03/14/2024 2:31 PM INTERNATIONAL STUDENT COUNSELOR [facility] Blood Venipuncture / Unknown 03/14/2024 7:56 AM INTERNATIONAL STUDENT COUNSELOR 03/14/2024 8:02 AM INTERNATIONAL STUDENT COUNSELOR Narrative [facility] - 03/14/2024 2:31 PM INTERNATIONAL STUDENT COUNSELOR HGB A1C INTERPRETATION NORMAL: <5.7% PRE-DIABETES: 5.7 - 6.4% DIABETES: 6.5% OR GREATER Nam Gandhi MD CHEMISTRY ORDERABLES Final Resul t [facility] CLIA# [id number] [address] [place] [address] from Last 3 Months or Most Recently Relevant to Health Maintenance Insurance BS BLUE ACCESS/TRUE BLUE PPO [facility] BLUE ACCESS/TRUE BLUE PPO RX [facility] [employer] Advance Directives For more information, please contact: [phone] * Full Code (Latest Code Status on File) Date Activated Date Inactivated Comments 04/04/2024 12:57 AM 04/07/2024 4:09 PM * Default Full Code - Needs Discussion Date Activated Date Inactivated Comments 04/03/2024 10:06 PM 04/04/2024 12:57 AM * Full Code Date Activated Date Inactivated Comments 03/14/2024 3:42 PM 03/23/2024 3:45 PM * Full Code Date Activated Date Inactivated Comments 03/13/2024 4:00 PM 03/14/2024 3:42 PM * Full Code Date Activated Date Inactivated Comments 03/13/2024 3:24 AM 03/13/2024 4:00 PM Care Teams Property Master Relationship Specialty Start Date End Date Berta Barry MD [address] [facility] [address] [id number] PCP - General Internal Medicine 05/29/24
[2024-08-20 11:02] LABS: Hematocrit 40.6 % (37.0-47.0); Hemoglobin 13.5 g/dL (12.0-15.0); Immature Granulocyte Percent A 0.4 % (0-0.5); Lymphocytes Absolute Auto 0.72 K/mm3 (0.9-3.2); Mean Corpuscular HGB Conc 33.3 g/dl (32-36); Mean Corpuscular Hemoglobin 30.9 pg (26-34); Mean Corpuscular Volume 92.9 fl (80-100); Nucleated Red Blood Cells Absolute Auto 0.000 K/mm3 (0.0-0.012); Nucleated Red Blood Cells Perc 0.0 % (0.0-0.2); Platelet Count Result 222 k/mm3 (150-375); Red Blood Count 4.37 M/mm3 (4.2-5.4); White Blood Count 11.7 K/mm3 (4.5-10.0)
[2024-08-20 11:04] LABS: Add Urine Microscopic? YES; Appearance Urine Cloudy (Clear); Glucose Urine UA Negative (Negative); Leukocyte Esterase Ur Negative LEU/UL (Negative); Need Manual Microscopic Reviewed; Nitrate Urine Negative (Negative); Specific Grav Ur 1.016 (1.001-1.035)
--- NOTE | 2024-08-20 11:11 | PC.NURSE ---
Bedside report received from Vivian ZAMAN. Patient awake, [place] in place. and daughter at bedside. Denies needs at this time
[2024-08-20 11:15] LABS: INR 1.1; Partial Thromboplastin Time 24.7 Seconds (22.3-36.8); Prothrombin Time 13.7 Seconds (11.1-14.7)
[2024-08-20 11:25] LABS: Alveolar/Arterial O2 Gradient 26.6 mmHg; Carboxyhemoglobin 1.5 % THb (0-2.0); Fractional Inspired Oxygen 24 %; HCO3 ABG 26.9 mEq/l (22.0-26.0); Methemoglobin ABG 0.3 %THb (0-1.5); Oxygen Content ABG 18.8 %vol (16.0-22.0); Oxygen Saturation ABG 97.1 % (95.0-100.0); PCO2 ABG 43.8 mmHg (35.0-45.0); PO2 ABG 92.4 mmHg (80.0-100.0); PO2 FiO2 Ratio Arterial Blood 3.85 %; Reduced Hemoglobin 2.9 %THb (0-5.0)
[2024-08-20 11:26] LABS: Alanine Aminotransferase 32 U/L (6-35); Albumin Level 4.4 g/dL (3.5-5.1); Alkaline Phosphatase 156 U/L (38-126); Anion Gap 10 mmol/L (4-12); Aspartate Amino Transferase 61 U/L (14-36); Bilirubin,Total 0.9 mg/dL (0.2-1.3); Blood Urea Nitrogen 12 mg/dL (7-17); Calcium 10.1 mg/dL (8.4-10.2); Carbon Dioxide 29 mmol/L (22-30); Chloride 96 mmol/L (98-107); Estimated Glomerular Filt Rate > 60; Glucose 137 mg/dL (65-110); Potassium 3.8 mmol/L (3.4-5.0); Sodium 135 mmol/L (137-145); Total Protein 8.3 g/dL (6.3-8.2)
[2024-08-20 11:26] LABS: Liters per Minute 1.0 LPM; Site Drawn LEFT BRACHIAL
--- NOTE | 2024-08-20 12:13 | ED.GENADULT ---
HPI - General Adult General Chief complaint: Altered Mental Status Stated complaint: AMS, CP Time Seen by Provider: 08/20/24 10:32 History of Present Illness HPI narrative: Patient is a 65-year-old female who presents ER with increased confusion. Recently Esteban placed on palliative care and started on tramadol. Has mesothelioma. Patient is been bobbing her head more than typical. No new cough or fever. Requiring assistance in getting up and walking around and weakness. Alert oriented x 1. Related Data Home Medications ?Medication ?Instructions ?Recorded ?Confirmed ?Last Taken ?Type cetirizine 10 mg tablet (Zyrtec) 10 mg PO DAILY 01/02/24 02/22/24 02/20/24 History levothyroxine 175 mcg tablet 175 mcg PO DAILY 01/02/24 02/22/24 02/20/24 History (Synthroid) rosuvastatin 5 mg tablet 5 mg PO DAILY 01/02/24 02/22/24 02/20/24 History ursodiol 500 mg tablet 1,500 mg PO DAILY 01/02/24 02/22/24 02/20/24 History cholecalciferol (vitamin D3) 125 5,000 unit PO DAILY 02/04/24 02/22/24 02/20/24 History mcg (5,000 unit) capsule multivitamin (Daily Multi-Vitamin 1 tablet PO DAILY 02/04/24 02/22/24 02/20/24 History tablet) Allergies Allergy/AdvReac Type Severity Reaction Status Date / Time No Known Allergies Allergy Verified 02/22/24 09:05 Review of Systems Review of Systems: ROS unobtainable: Yes unobtainable due to mental status [facility] Past Medical History Medical History (Updated 08/20/24 @ 19:02 by Jez Ruiz MD) Former smoker H/O radioactive iodine thyroid ablation Hyperthyroidism Hypothyroidism (acquired) Cholangitis Hyperlipidemia Arthritis Surgical History Surgical History (Updated 01/04/24 @ 17:55 by Adan Arrington MD) History of liver biopsy H/O breast biopsy History of Family History Family History (Updated 01/02/24 @ 19:00 by Rose Seaman RN) Mother Colon cancer Social History Social History (Updated 01/02/24 @ 23:35 by Kaykay Cardozo APRN) Smoking status: Former smoker Tobacco type: cigarettes Alcohol intake: never Substance use: never Substance use type: does not use Do You Feel Safe in your Home?: Yes Lack of Transportation: No Lack of Food: Never True Current Housing: I Have Housing Concerned About Future Housing: No Difficulty Paying Gas/Electric Bills: No Difficulty Paying for Meds: No Currently Unemployed: No Education: Trade/Vocational Certificate Difficulty w/ Childcare or Family Care: No Spiritual care concerns: No Exam Narrative: GENERAL: Chronically ill-appearing, well-nourished, and in no acute distress. HEAD: Normocephalic, atraumatic. EYES: PERRL and EOMI. ENT: Mucous membranes moist. CHEST: Diminished lung sounds bilaterally worse on the right. No respiratory distress. HEART: Regular rate and rhythm. Normal peripheral pulses. ABDOMEN: Soft, nontender, nondistended. EXTREMITIES: Normal range of motion. No edema. SKIN: Warm, dry, no rash. NEURO: Alert and oriented x1. Unable to right with a pencil though she will make occasional letters but no words. Slurs her speech. Course Course Emergency Course: Patient required some Ativan for agitation. Discussed with family lab and imaging findings. Mild question of whether there could be a pneumonia but I have increasing concerned that patient has hydrocephalus is symptomatic as she is having headache and confusion. Discussed transfer to [facility] where patient received or care for evaluation by Neuro surgery possible shunt and other testing. Also discussed the fact that she is on palliative care and may be better served with hospice evaluation. I have spoken with the patient's , her daughter, and her son. Care coordination has gone in to speak with them as well. Discussed case with care coordination as well as hospitalist service. Admit overnight for comfort as patient is not candidate to go to her home and cannot be placed at this hour of the day. Hospice decisions will be made tomorrow but family is sure they do not want to go and have the hydrocephalus further evaluated or may actively treated with a surgical procedure. Vital Signs Vital signs: Vital Signs Temperature 97.8 F 08/20/24 10:57 Pulse Rate 93 08/20/24 10:57 Respiratory Rate 16 08/20/24 10:57 Blood Pressure 206/110 H 08/20/24 10:57 Pulse Oximetry 99 08/20/24 10:57 Oxygen Delivery Room Air 08/20/24 10:57 Temperature 97.8 F 08/20/24 10:57 Pulse Rate 87 08/20/24 16:00 Respiratory Rate 24 H 08/20/24 16:00 Blood Pressure 189/90 H 08/20/24 16:00 Pulse Oximetry 97 08/20/24 16:00 Oxygen Delivery Room Air 08/20/24 10:57 Medical Decision Making Vital Signs Vital Signs: Vital Signs Temperature 97.8 F 08/20/24 10:57 Pulse Rate 93 08/20/24 10:57 Respiratory Rate 16 08/20/24 10:57 Blood Pressure 206/110 H 08/20/24 10:57 Pulse Oximetry 99 08/20/24 10:57 Oxygen Delivery Room Air 08/20/24 10:57 Temperature 97.8 F 08/20/24 10:57 Pulse Rate 87 08/20/24 16:00 Respiratory Rate 24 H 08/20/24 16:00 Blood Pressure 189/90 H 08/20/24 16:00 Pulse Oximetry 97 08/20/24 16:00 Oxygen Delivery Room Air 08/20/24 10:57 Lab Data 08/20/24 10:44 08/20/24 10:44 Labs: Lab Results 08/20/24 08/20/24 Range/Units 10:44 11:20 WBC 11.7 H (4.5-10.0) K/mm3 RBC 4.37 (4.2-5.4) M/mm3 Hgb 13.5 (12.0-15.0) g/dL Hct 40.6 (37.0-47.0) % MCV 92.9 (80-100) fl MCH 30.9 (26-34) pg MCHC 33.3 (32-36) g/dl RDW 14.3 (11.5-14.5) % Plt Count 222 (150-375) k/mm3 MPV 9.6 (7.4-10.4) fl Immature Gran % (Auto) 0.4 (0-0.5) % Neut % (Auto) 88.2 H (45.5-73.1) % Lymph % (Auto) 6.2 L (18.3-44.2) % [place] % (Auto) 4.2 (2.6-8.5) % Eos % (Auto) 0.5 (0-4.4) % Baso % (Auto) 0.5 (0.2-1.2) % Lymph # (Auto) 0.72 L (0.9-3.2) K/mm3 [place] # (Auto) 0.5 (0.1-0.6) K/mm3 Eos # (Auto) 0.1 (0-0.3) K/mm3 Baso # (Auto) 0.1 (0.0-0.1) K/mm3 Abs Immat Gran (auto) 0.05 H (0.00-0.031) K/mm3 Absolute Neuts (auto) 10.3 H (1.3-6.7) K/mm3 Absolute Nucleated RBC 0.000 (0.0-0.012) K/mm3 Nucleated RBC % 0.0 (0.0-0.2) % PT 13.7 (11.1-14.7) Seconds INR 1.1 APTT 24.7 (22.3-36.8) Seconds Methemoglobin 0.3 (0-1.5) %THb Sodium 135 L (137-145) mmol/L Potassium 3.8 (3.4-5.0) mmol/L Chloride 96 L (98-107) mmol/L Carbon Dioxide 29 (22-30) mmol/L Anion Gap 10 (4-12) mmol/L BUN 12 (7-17) mg/dL Creatinine 0.82 (0.7-1.0) mg/dL Estim Creat Clear Calc Not Reportable Estimated GFR > 60 (59 - ) Glucose 137 H (65-110) mg/dL Calcium 10.1 (8.4-10.2) mg/dL Total Bilirubin 0.9 (0.2-1.3) mg/dL AST 61 H (14-36) U/L ALT 32 (6-35) U/L Alkaline Phosphatase 156 H (38-126) U/L Total Protein 8.3 H (6.3-8.2) g/dL Albumin 4.4 (3.5-5.1) g/dL Urine Color Yellow (Yellow) Urine Appearance Cloudy H (Clear) Urine pH 7.5 (5.0-9.0) Ur Specific [place] 1.016 (1.001-1.035) Urine Protein 2+ H (Negative) mg/dL Urine Glucose (UA) Negative (Negative) mg/dL Urine Ketones 2+ H (Negative) mg/dL Ur Blood (Man) Negative (Negative) Urine Nitrate Negative (Negative) Urine Bilirubin Negative (Negative) Urine Urobilinogen 1.0 (<2.0) mg/dL Add Ur Microanalysis Reviewed Leukocyte Esterase Rfl Negative (Negative) KEVIN/UL Urine RBC 0-2 (0-2) /hpf Urine WBC 0-5 (0-3) /hpf Ur Squamous Epith Cells None seen (Few) /hpf Urine Bacteria None seen /hpf Urine Casts 3-5 ABG Data ABG results: 08/20/24 11:20 Puncture Site Left brachial ABG pH 7.406 ABG pCO2 43.8 ABG pO2 92.4 ABG PO2/FiO2 Ratio 3.85 ABG HCO3 26.9 H ABG O2 Saturation 97.1 ABG O2 Content 18.8 ABG Base Excess 1.8 A-a Gradient 26.6 Oxyhemoglobin 95.3 Carboxyhemoglobin 1.5 Reduced Hemoglobin 2.9 Total Hemoglobin 14.0 O2 Delivery Device Nasal cannula O2 Liters/Min 1.0 FiO2 24 Imaging Data Radiologist's impression: ITS Impressions Chest X-Ray 08/20/24 12:07 IMPRESSION: Linear opacities in bilateral lung bases may represent atelectasis or scarring versus pneumonia in appropriate clinical settings. Short-term follow-up chest radiograph is recommended after appropriate clinical therapy. Head CT 08/20/24 16:39 IMPRESSION: Hydrocephalus. Clinical correlation and follow-up advised. Otherwise, No acute intracranial findings. ECG Data EKG #1: ECG completion date: 08/20/24 ECG completion time: 10:31 EKG Interpretation: normal rate (84), non-specific ST changes, normal QRS, normal QT and left axis Discharge Plan Discharge Clinical Impression: Hydrocephalus, Altered mental status Patient Disposition: Still a Patient Condition: Guarded Prognosis Patient Language: Spanish Prescriptions: No Action levothyroxine [Synthroid] 175 mcg tablet 175 mcg PO DAILY cetirizine [Zyrtec] 10 mg Tablet 10 mg PO DAILY rosuvastatin 5 mg tablet 5 mg PO DAILY ursodiol 500 mg tablet 1,500 mg PO DAILY multivitamin [Daily Multi-Vitamin] Tablet 1 tablet PO DAILY cholecalciferol (vitamin D3) 125 mcg (5,000 unit) capsule 5,000 unit PO DAILY Follow-up/Referrals: Gray,Yari Garg MD [Primary Care Provider] -
[2024-08-20] MEDS: LORazepam INJ (*CRX) 2 MG/ML VIAL 0.5 MG IV PUSH (14:11)
--- NOTE | 2024-08-20 14:20 | PC.NURSE ---
1475 Patient sitting on end of bed and is uncooperative in trying to get her repositioned with RN attempts and becoming more agitated. Dr Ruiz made aware. Daughter at edside-patient not listening to her either.
--- NOTE | 2024-08-20 14:21 | PC.NURSE ---
Patient repositioned, slightly calmer after medications, wet washcloth given for comfort. Patient asking for oxygen to be reapplied-done at 1L
--- NOTE | 2024-08-20 15:44 | PC.NURSE ---
Family made aware Dr Ruiz will be in soon to talk with them regarding further care
--- NOTE | 2024-08-20 16:02 | PC.NURSE ---
Dr Ruiz at bedside with patient and family
--- NOTE | 2024-08-20 16:20 | PC.NURSE ---
unable to obtain blood cultures despite multiple attempts-will call phlebotomy on patient return from radiology
[2024-08-20] MEDS: cefTRIAXone 1 GM in SODIUM CHLORIDE 0.9% IV 50 ML 100 ML IVPB (17:02)
[2024-08-20] MEDS: AZITHROMYCIN IV 500 MG in SODIUM CHLORIDE 0.9% IV 250 ML IVPB (17:14)
--- NOTE | 2024-08-20 19:04 | PCCCNOTE ---
Called to the ED to discuss hospice with the patients family. They are unsure about making this decision tonight, would rather have some time to think about it. I spoke with Dr. Ruiz, pt will be admitted over night and will discuss hospice with them tomorrow. They were given the list of hospice agencies. No further questions at this time.
--- NOTE | 2024-08-20 20:57 | P.HP_ITS ---
H&P: HPI History of Present Illness Date/Time: 08/20/24 20:57 Chief Complaint: Increased confusion Narrative: 64-year-old female with a past medical history of mesothelioma, hydrocephalus, postablative hypothyroidism, and primary biliary cholangitis who presented to the ER from home via EMS due to increased confusion for several days. The patient had been on chemotherapy for mesothelioma since last year. About 2 months ago her chemotherapy agents were actually discontinued. She has only been on Keytruda alone for the last 2 months. The patient is not a candidate for additional chemotherapy. The patient was evaluated by palliative care physician and 3 or 4 days ago was started on tramadol. The patient daughter reports has been having bobbing of her head more than usual. The patient has had longstanding orthopnea that is gotten worse over the last month since her chemotherapy was discontinued. After her chemotherapy was discontinued in July they went on vacation. As soon as the patient got back from vacation her mentation and functional status started rapidly declining. The patient seemed afraid to lay down due to shortness of breath. She would lay down sit, practice business asst pace. When she did fall asleep she was fall sleep sitting straight up in would fall forward. She has had marked decrease in her appetite. She has been complaining of headache and neck pain. She also was complaining of back pain. Patient is no longer able to get up and walk around and is generally weak. Over the last 3 days they have noticed marked increase in her lethargy. The patient is only oriented x1. Imaging in the ER demonstrated hydrocephalus which patient does have a known history of but baseline CT scan is not available. ER provider discussed possible transfer for the patient for placement of shunt and the family did not want to proceed with that option since patient is already palliative care. Subsequently the patient has been admitted the hospital for comfort care until hospice evaluation could be performed. Chest x-ray in the ER did demonstrate linear opacities bilateral lung bases could be consistent with atelectasis scarring versus pneumonia. The patient does have a known history of mesothelioma which also could have similar findings. Patient did have some mild leukocytosis. The patient did receive 1 dose of Rocephin and azithromycin. UA did demonstrate 2+ ketones appears dehydrated. The patient's daughter and son are both at bedside and provides all history the remainder of her history and physical was of obtained by review of past medical records. Review of Systems 2 Review of Systems: Unobtainable due to patient's mentation. [facility] Past Medical History Medical History (Updated 08/20/24 @ 21:24 by Divya Connors DO) Chronic hyponatremia Hydrocephalus Postablative hypothyroidism Mesothelioma Former smoker Hyperlipidemia Arthritis Surgical History Surgical History History of liver biopsy H/O breast biopsy History of Family History Family History Mother Colon cancer Social History Social History (Updated 08/21/24 @ 05:08 by Divya Connors DO) Social History: Code status: DNR/DNI Surrogate decision maker: Uyen (daughter) and Kofi (son) Smoking status: Former smoker Tobacco type: cigarettes Alcohol intake: never Substance use: never Substance use type: does not use Do You Feel Safe in your Home?: Yes Lack of Transportation: No Lack of Food: Never True Current Housing: I Have Housing Concerned About Future Housing: No Difficulty Paying Gas/Electric Bills: No Difficulty Paying for Meds: No Currently Unemployed: No Education: Trade/Vocational Certificate Difficulty w/ Childcare or Family Care: No Spiritual care concerns: No Meds Home Medications and Allergies Home Medications ?Medication ?Instructions ?Recorded ?Confirmed ?Type cetirizine 10 mg tablet (Zyrtec) 10 mg PO DAILY 01/02/24 08/20/24 History rosuvastatin 5 mg tablet 5 mg PO DAILY 01/02/24 08/20/24 History ursodiol 500 mg tablet 500 mg PO TID 01/02/24 08/20/24 History cholecalciferol (vitamin D3) 125 5,000 unit PO DAILY 02/04/24 08/20/24 History mcg (5,000 unit) capsule multivitamin (Daily Multi-Vitamin 1 tablet PO DAILY 02/04/24 08/20/24 History tablet) benzonatate 200 mg capsule 200 mg PO TID PRN cough 08/20/24 08/20/24 History dexamethasone 4 mg tablet 4 mg PO .COMPLEX PRN chemo 08/20/24 08/20/24 History famotidine 20 mg tablet 20 mg PO DAILY 08/20/24 08/20/24 History folic acid 1 mg tablet 1 mg PO DAILY 08/20/24 08/20/24 History furosemide 40 mg tablet 40 mg PO DAILY 08/20/24 08/20/24 History gabapentin 300 mg capsule 300 mg PO TID 08/20/24 08/20/24 History levothyroxine 150 mcg tablet 150 mcg PO DAILY 08/20/24 08/20/24 History (Synthroid) lidocaine-prilocaine 2.5 %-2.5 % 1 applic topical .COMPLEX PRN 08/20/24 08/20/24 History topical cream numbing ondansetron HCl 8 mg tablet 8 mg PO Q8H PRN nausea and vomiting 08/20/24 08/20/24 History prochlorperazine maleate 10 mg 10 mg PO Q6H PRN nausea and 08/20/24 08/20/24 History tablet vomiting tizanidine 2 mg tablet 2 mg PO Q8H PRN muscle spasticity 08/20/24 08/20/24 History tramadol 50 mg tablet 50 mg PO Q8H PRN pain 08/20/24 08/20/24 History Allergies Allergy/AdvReac Type Severity Reaction Status Date / Time No Known Allergies Allergy Verified 02/22/24 09:05 Vital Signs Vital Signs - 24 hr 08/20/24 10:57 08/20/24 11:10 08/20/24 11:56 Temperature 97.8 F Pulse Rate 93 88 81 Respiratory Rate 16 16 Blood Pressure 206/110 H 207/106 H Pulse Oximetry 99 100 Oxygen Delivery Room Air 08/20/24 13:51 08/20/24 14:25 08/20/24 15:15 Temperature Pulse Rate 94 93 94 Respiratory Rate 20 21 H 22 H Blood Pressure 206/109 H 210/100 H 227/103 H Pulse Oximetry 97 97 Oxygen Delivery 08/20/24 16:00 08/20/24 17:00 08/20/24 18:00 Temperature Pulse Rate 87 81 90 Respiratory Rate 24 H 20 24 H Blood Pressure 189/90 H 200/78 H 162/94 H Pulse Oximetry 97 95 95 Oxygen Delivery 08/20/24 19:00 08/20/24 20:25 Temperature 97.2 F L Pulse Rate 93 83 Respiratory Rate 24 H 19 Blood Pressure 180/104 H 177/99 H Pulse Oximetry 96 97 Oxygen Delivery Exam 2 Narrative: Weight 72.4 kg Const: Other: Patient has acute on chronically ill-appearing, she is restless and moaning in bed HENMT: Other: Mucous membranes are dry, patient clenches are eyes tightly to avoid ocular exam Neck: Other: No JVD, no lymphadenopathy Resp: Other: Shallow respirations, regular respiratory rate Cardio: Other: Regular rate, regular rhythm, 2+ bilateral radial pedal pulses GI: Other: Soft, nontender, nondistended, positive bowel sounds : Other: Depends in place Skin: Other: Mild jaundice, mild pallor, no mottling Neuro: Other: The patient does not open her eyes to command and actively resists opening her eyes for exam, she is moving all of her extremities equally but is not following command, no facial asymmetry Extrem: Other: No clubbing, cyanosis or edema Psych: Other: Restless, appears uncomfortable H&P: Results Labs Labs: Laboratory Tests 08/20/24 10:44 08/20/24 10:44 08/20/24 08/20/24 10:44 11:20 WBC 11.7 H RBC 4.37 Hgb 13.5 Hct 40.6 MCV 92.9 MCH 30.9 MCHC 33.3 RDW 14.3 Plt Count 222 MPV 9.6 Immature Gran % (Auto) 0.4 Neut % (Auto) 88.2 H Lymph % (Auto) 6.2 L [place] % (Auto) 4.2 Eos % (Auto) 0.5 Baso % (Auto) 0.5 Lymph # (Auto) 0.72 L [place] # (Auto) 0.5 Eos # (Auto) 0.1 Baso # (Auto) 0.1 Abs Immat Gran (auto) 0.05 H Absolute Neuts (auto) 10.3 H Absolute Nucleated RBC 0.000 Nucleated RBC % 0.0 PT 13.7 INR 1.1 APTT 24.7 Puncture Site Left brachial ABG pH 7.406 ABG pCO2 43.8 ABG pO2 92.4 ABG PO2/FiO2 Ratio 3.85 ABG HCO3 26.9 H ABG O2 Saturation 97.1 ABG O2 Content 18.8 ABG Base Excess 1.8 A-a Gradient 26.6 Oxyhemoglobin 95.3 Carboxyhemoglobin 1.5 Methemoglobin 0.3 Reduced Hemoglobin 2.9 Total Hemoglobin 14.0 O2 Delivery Device Nasal cannula O2 Liters/Min 1.0 FiO2 24 Sodium 135 L Potassium 3.8 Chloride 96 L Carbon Dioxide 29 Anion Gap 10 BUN 12 Creatinine 0.82 Estim Creat Clear Calc Not Reportable Estimated GFR > 60 Glucose 137 H Calcium 10.1 Total Bilirubin 0.9 AST 61 H ALT 32 Alkaline Phosphatase 156 H Total Protein 8.3 H Albumin 4.4 Urine Color Yellow Urine Appearance Cloudy H Urine pH 7.5 Ur Specific [place] 1.016 Urine Protein 2+ H Urine Glucose (UA) Negative Urine Ketones 2+ H Ur Blood (Man) Negative Urine Nitrate Negative Urine Bilirubin Negative Urine Urobilinogen 1.0 Add Ur Microanalysis Reviewed Leukocyte Esterase Rfl Negative Urine RBC 0-2 Urine WBC 0-5 Ur Squamous Epith Cells None seen Urine Bacteria None seen Urine Casts 3-5 Impressions Chest X-Ray 08/20/24 12:07 IMPRESSION: Linear opacities in bilateral lung bases may represent atelectasis or scarring versus pneumonia in appropriate clinical settings. Short-term follow-up chest radiograph is recommended after appropriate clinical therapy. Head CT 08/20/24 16:39 IMPRESSION: Hydrocephalus. Clinical correlation and follow-up advised. Otherwise, No acute intracranial findings. Test Date: 2024-08-20 10:31:01 Measurements Intervals [place] Rate: 84 P: -3 [place]: 151 QRS: -40 QRSD: 94 T: -9 QT: 379 QTc: 450 Interpretive Statements SINUS RHYTHM POSSIBLE LEFT ATRIAL ENLARGEMENT [-0.1mV P-WAVE IN V1/V2] LEFT AXIS DEVIATION [QRS AXIS < -30] POSSIBLE LEFT VENTRICULAR HYPERTROPHY [VOLTAGE CRITERIA PLUS LAE OR QRS WIDENING] POSSIBLE ANTERIOR MYOCARDIAL INFARCTION , OF INDETERMINATE AGE [30 ms Q WAVE IN V3/V4, OR R < 0.2 mV IN V4] INFERIOR INFARCT, AGE INDETERMINATE Compared to ECG 01/02/2024 16:16:52 Left-axis deviation now present Myocardial infarct finding still present All imaging and EKGs personally reviewed and interpreted. And unless stated otherwise agree with radiologic and cardiology interpretation. Assessment and Plan Assessment and plan (1) Mesothelioma: Code(s): C45.9 - Mesothelioma, unspecified Status: Acute (2) Hydrocephalus: Qualifiers: Hydrocephalus type: unspecified Qualified Code(s): G91.9 - Hydrocephalus, unspecified Code(s): G91.9 - Hydrocephalus, unspecified Status: Acute (3) Dehydration: Code(s): E86.0 - Dehydration Status: Acute (4) Hypothyroidism (acquired): Code(s): E03.9 - Hypothyroidism, unspecified Status: Acute (5) Chronic hyponatremia: Code(s): E87.1 - Hypo-osmolality and hyponatremia Status: Acute (6) Primary biliary cholangitis: Code(s): K74.3 - Primary biliary cirrhosis Status: Acute Plan Patient presents with increased confusion and weakness which is multifactorial due to history of the mesothelioma, hydrocephalus possible acute decompensation and acute dehydration. Patient's clinical condition is been slowly worsening and progressing. The family has decided not to pursue further investigation or treatment of patient's hydrocephalus. Imaging in the ER demonstrated atelectasis versus pneumonia patient did have mildly elevated white count however I am less suspicious of acute infection. I suspect findings are more consistent with patient's history of mesothelioma. Will discontinue antibiotic therapy. However patient does appear acutely dehydrated 2+ ketones in her urine. Will give 2 L of IV fluids at 150 mL an hour. If the patient is more hydrated she may feel a little bit better in be a little bit more alert the ability to interact with her family improving quality of the time she has left. Will change her diet to regular diet. If the patient does wake up she can have pleasure foods. Will provide p.r.n. pain medications and anxiety medications as well as antiemetics. Care coordination consult for hospice referral. Code status: DNR/DNI Patient has been admitted as observation status. MEDICAL DECISION MAKING NARRATIVE -Spoke with the ED provider in detail regarding patient's evaluation, workup and management -Patient seen and examined at bedside -Collaborated with patient's nurse at the bedside in detail and addressed all concerns -Labs, electrolytes, radiology, investigations and test results reviewed -ED/Consult/Nursing/Ancilliary notes on the chart reviewed and appreciated -Spoke with patient/family at the bedside and all questions were answered and everyone is in agreement with plan. Quality If No VTE Prophylaxis Answer both mechanical and pharmacologic: Reason no mechanical VTE proph: patient/caregiver refusal Reason no pharmacologic proph: patient/caregiver refusal Hospitalist MIPS Advance Care Plan I have confirmed that the patient's Advanced Care Plan is present, code status is documented, or surrogate decision maker is listed in patient medical record.: Yes Medication Reconciliation I have utilized all available resources to obtain, update and review the patients current medications (includes all prescriptions, OTC, herbals, cannabis, and nutritional supplements).: Yes
--- NOTE | 2024-08-20 22:01 | ADMGEN ---
This patient, Kimberly Isabel, was admitted to Medical Room 255-01. Patient/family oriented to hospital policies and general routines including ID bracelet, bed and alarms, visiting hours, pain management, procedures, bathroom and other care routines, personal items, smoking policy, room service/diet, and visiting hours. Information on how to activate the Rapid Response Team has been discussed. Patient/Family are encouraged to report perceived risks to care and to ask questions if they do not understand what they are told or what they should do.
[2024-08-20] MEDS: SODIUM CHLORIDE 0.9% IV 1,000 ML 150 ML IV CONT (22:22)
[2024-08-20] MEDS: LORazepam INJ (*CRX) 2 MG/ML VIAL 1 MG IV PUSH (22:22)
[2024-08-20] MEDS: MORPHINE SULFATE (*CRX) 4 MG/ML INJ IV PUSH (23:24)
[2024-08-21] MEDS: MORPHINE SULFATE (*CRX) 4 MG/ML INJ IV PUSH ×2 (01:23→04:51)
[2024-08-21] MEDS: LORazepam INJ (*CRX) 2 MG/ML VIAL 1 MG IV PUSH ×2 (02:42→06:04)
[2024-08-21] MEDS: SODIUM CHLORIDE 0.9% IV 1,000 ML 150 ML IV CONT (05:58)
[2024-08-21 06:00] VITALS: BP 116/46; PULSE 79; RESP 18; TEMP 36.7; O2SAT 90
[2024-08-21 07:50] VITALS: RESP 18; O2SAT 90
--- NOTE | 2024-08-21 08:22 | P.PNIM_ITS ---
Progress Note: A&P Assessment and Plan (1) Hydrocephalus: Qualifiers: Hydrocephalus type: unspecified Qualified Code(s): G91.9 - Hydrocephalus, unspecified Code(s): G91.9 - Hydrocephalus, unspecified Status: Acute Assessment and Plan: Head CT showed hydrocephalus. Per chart review this is known history. (2) Mesothelioma: Code(s): C45.9 - Mesothelioma, unspecified Status: Acute Assessment and Plan: Chemotherapy for mesothelioma since last year, about 2 months ago her chemotherapy agents were discontinued. She has been on Keytruda alone for the last 2 months. Not a candidate for additional chemotherapy. Evaluated by palliative care physician and 3 or 4 days ago was started on tramadol. (3) Hypothyroidism (acquired): Code(s): E03.9 - Hypothyroidism, unspecified Status: Acute (4) Chronic hyponatremia: Code(s): E87.1 - Hypo-osmolality and hyponatremia Status: Acute Assessment and Plan: Chronic, appears at baseline Currently 135, continue to monitor Subjective Date/time seen: 08/21/24 08:22 Interval history: 64-year-old female with a past medical history of mesothelioma, hydrocephalus, postablative hypothyroidism, and primary biliary cholangitis who presented to the ER from home via EMS due to increased confusion for several days. Review of Systems Review of Systems: All systems reviewed & are unremarkable except as noted in HPI and below Exam Narrative: AF General: well nourished, well-developed female in no acute respiratory distress who is nontoxic appearing, lying semi recumbent in bed. HEENT: Normocephalic. Atraumatic. Pupils equal round reactive to light. Extraocular movement intact. Sclera clear and anicteric. Nares patent. No oral lesions. Moist mucous membranes. Tongue is midline. Palate juan symmetrically. No facial asymmetry. Neck: Neck was supple. No dominant adenopathy, thyromegaly or masses. 2+ carotid upstrokes without bruits. Chest: Lungs are clear to auscultation bilaterlly. No wheezes or crackles. CV: Heart was regular rate and rhythm. S1-S2. No murmurs, gallops, or rubs. Abd: Abdomen was soft. Nontender. Nondistended. Postive bowel sounds. No organomegaly or masses. Ext: No clubbing, cyanosis, or edema. 2+ DP pulses bilaterally. Neuro: Patient is alert and oriented x4. Strenth is 5/5 in both upper and lower extremities. Cranial nerves 2-12 are intact. Speech is clear. Psych: Normal nood and affect. Patient is pleasant and cooperative. Skin: Warm and dry. No rashes noted. Objective Data Vital Signs Vital Signs: Vital Signs - 24 hr 08/20/24 10:57 08/20/24 11:10 08/20/24 11:56 Temperature 97.8 F Pulse Rate 93 88 81 Respiratory Rate 16 16 Blood Pressure 206/110 H 207/106 H Pulse Oximetry 99 100 Oxygen Delivery Room Air 08/20/24 13:51 08/20/24 14:25 08/20/24 15:15 Temperature Pulse Rate 94 93 94 Respiratory Rate 20 21 H 22 H Blood Pressure 206/109 H 210/100 H 227/103 H Pulse Oximetry 97 97 Oxygen Delivery 08/20/24 16:00 08/20/24 17:00 08/20/24 18:00 Temperature Pulse Rate 87 81 90 Respiratory Rate 24 H 20 24 H Blood Pressure 189/90 H 200/78 H 162/94 H Pulse Oximetry 97 95 95 Oxygen Delivery 08/20/24 19:00 08/20/24 20:25 08/20/24 22:00 Temperature 97.2 F L 97.9 F Pulse Rate 93 83 85 Respiratory Rate 24 H 19 18 Blood Pressure 180/104 H 177/99 H 190/79 H Pulse Oximetry 96 97 97 Oxygen Delivery 08/21/24 06:00 Temperature 98.0 F Pulse Rate 79 Respiratory Rate 18 Blood Pressure 116/46 L Pulse Oximetry 90 Oxygen Delivery Intake/Output Intake/Output: Intake & Output 08/18/24 08/19/24 08/20/24 08/21/24 23:59 23:59 23:59 23:59 Intake Total 300 1000 Output Total 100 Balance 200 1000 Meds/Results Medications: Active Medications Generic Name Dose Route Start Last Admin Trade Name Freq PRN Reason Stop Dose Admin Acetaminophen 650 mg 08/20/24 19:03 Acetaminophen 325 Mg Tablet PO Q4H PRN Mild Pain (1-3) or Fever Hydrocodone Bitart/Acetaminophen 1 tab 08/20/24 19:03 Hydrocodone/Acetaminophen (*Crx) 5-325 Mg Tablet PO Q4H PRN Pain Rated 4-6 Benzonatate 200 mg 08/21/24 04:51 Benzonatate 100 Mg Capsule PO TID PRN cough Sodium Chloride 1,000 mls @ 150 mls/hr 08/20/24 21:25 08/21/24 05:58 Normal Saline Iv IV CONT 08/21/24 10:44 150 mls/hr .[id number] NICK Administration Lorazepam 1 mg 08/21/24 04:57 08/21/24 06:04 Lorazepam Inj (*Crx) 2 Mg/Ml Vial IV PUSH 1 mg Q2H PRN Administration Anxiety Morphine Sulfate 4 mg 08/20/24 19:03 08/21/24 04:51 Morphine Sulfate (*Crx) 4 Mg/Ml Inj IV PUSH 4 mg Q2H PRN Administration Pain/air hunger Promethazine HCl 12.5 mg 08/20/24 19:03 Promethazine Hcl 25 Mg/Ml Ampul IV PUSH Q6H PRN Nausea Radiology Results: ITS Impressions Chest X-Ray 08/20/24 12:07 IMPRESSION: Linear opacities in bilateral lung bases may represent atelectasis or scarring versus pneumonia in appropriate clinical settings. Short-term follow-up chest radiograph is recommended after appropriate clinical therapy. Head CT 08/20/24 16:39 IMPRESSION: Hydrocephalus. Clinical correlation and follow-up advised. Otherwise, No acute intracranial findings. Labs Labs: Laboratory Results - last 24 hr 08/20/24 08/20/24 10:44 11:20 WBC 11.7 H RBC 4.37 Hgb 13.5 Hct 40.6 MCV 92.9 MCH 30.9 MCHC 33.3 RDW 14.3 Plt Count 222 MPV 9.6 Immature Gran % (Auto) 0.4 Neut % (Auto) 88.2 H Lymph % (Auto) 6.2 L [place] % (Auto) 4.2 Eos % (Auto) 0.5 Baso % (Auto) 0.5 Lymph # (Auto) 0.72 L [place] # (Auto) 0.5 Eos # (Auto) 0.1 Baso # (Auto) 0.1 Abs Immat Gran (auto) 0.05 H Absolute Neuts (auto) 10.3 H Absolute Nucleated RBC 0.000 Nucleated RBC % 0.0 PT 13.7 INR 1.1 APTT 24.7 Puncture Site Left brachial ABG pH 7.406 ABG pCO2 43.8 ABG pO2 92.4 ABG PO2/FiO2 Ratio 3.85 ABG HCO3 26.9 H ABG O2 Saturation 97.1 ABG O2 Content 18.8 ABG Base Excess 1.8 A-a Gradient 26.6 Oxyhemoglobin 95.3 Carboxyhemoglobin 1.5 Methemoglobin 0.3 Reduced Hemoglobin 2.9 Total Hemoglobin 14.0 O2 Delivery Device Nasal cannula O2 Liters/Min 1.0 FiO2 24 Sodium 135 L Potassium 3.8 Chloride 96 L Carbon Dioxide 29 Anion Gap 10 BUN 12 Creatinine 0.82 Estim Creat Clear Calc Not Reportable Estimated GFR > 60 Glucose 137 H Calcium 10.1 Total Bilirubin 0.9 AST 61 H ALT 32 Alkaline Phosphatase 156 H Total Protein 8.3 H Albumin 4.4 Urine Color Yellow Urine Appearance Cloudy H Urine pH 7.5 Ur Specific [place] 1.016 Urine Protein 2+ H Urine Glucose (UA) Negative Urine Ketones 2+ H Ur Blood (Man) Negative Urine Nitrate Negative Urine Bilirubin Negative Urine Urobilinogen 1.0 Add Ur Microanalysis Reviewed Leukocyte Esterase Rfl Negative Urine RBC 0-2 Urine WBC 0-5 Ur Squamous Epith Cells None seen Urine Bacteria None seen Urine Casts 3-5
--- NOTE | 2024-08-21 13:54 | PM.DDS ---
Discharge Summary Date and Time Date of : 08/21/24 Time of : 10:20 Provider Pronounced By: 2 RNs Name of First RN That Pronounced: Hillary Gaffney Name of Second RN That Pronounced: Oksana Mullen Probable Cause of Probable Cause of : cardiac arrest due to complications of mesothelioma Summary Hospital Course: 64-year-old female with a past medical history of mesothelioma, hydrocephalus, postablative hypothyroidism, and primary biliary cholangitis who presented to the hospital due to increased confusion for several days as noted in HPI. Chest XR showed linear opacities in bilateral lung bases may represent atelectasis or scarring versus pneumonia in appropriate clinical settings. She was started on antibiotics in the ED however admitting provider discontinued antibiotics as thought findings were more related to mesothelioma per chart review. A head CT showed hydrocephalus which per chart review patient had a known history. Per chart review family decided not to pursue further investigation or treatment of patient's hydrocephalus. Patient had been admitted to the hospital for comfort care until hospice evaluation could be performed. Prior to my evaluating patient she had . Hospice had not been set up yet. Patient was a DNR thus no code was called. Family at bedside was consoled. Additional Data Was code activated?: No (Patient DNR. )
== END 2024-08-21 14:17 | disposition expired | DRG 844 ==
LOC: ANHED 19:02 → ANH2MED 20:04
PROVIDERS: Admitting Provider Internal Medicine; Emergency Provider Emergency Medicine; PCP Internal Medicine; Visit Provider Internal Medicine
DX: C45.9 Mesothelioma, unspecified (principal); E87.1 Hypo-osmolality and hyponatremia; G91.9 Hydrocephalus, unspecified; I46.8 Cardiac arrest due to other underlying condition; Z66 Do not resuscitate; E86.0 Dehydration; E03.9 Hypothyroidism, unspecified; E78.5 Hyperlipidemia, unspecified; E03.8 Other specified hypothyroidism; K74.3 Primary biliary cirrhosis; M19.90 Unspecified osteoarthritis, unspecified site; Z92.21 Personal history of antineoplastic chemotherapy; Z87.891 Personal history of nicotine dependence
CPT/HCPCS: 36415; 36600; 70450; 71046; 80053; 81001; 82375; 82805; 83050; 85018; 85025; 85610; 85730; 87040; 93005; 96361; 96365; 96366; 96367; 96375; 96376; 99285; G0378; J0360; J0456; J0696; J2060; J2270; J7030; J7050